=== PATIENT | female | born 1940 | race Caucasian/White ===

== ENCOUNTER → 2016-10-26 | Outpatient (CLI) | payer MEDICARE, BC ==
--- NOTE | 2016-10-28 16:00 | PE ---
Nuclear medicine PET/CT HISTORY: Lung carcinoma Patient received 14.4 mCi F-18 FDG intravenously. Scanning performed from the skull base to the mid t highs. Localization and attenuation correction CT scan was performed. Correlation to prior nuclear medicine PET/CT 24 February 2016 FINDINGS: Neck and chest: No suspicious hypermetabolic uptake. No mediastinal, axillary, or hilar adenopathy. H eart is enlarged. Coronary artery calcifications are present. Pulmonary artery is prominent, correlat e for possible pulmonary artery hypertension. No pleural or pericardial effusion. Extensive emphysema tous changes are present within the lungs. There is been some interval increase in pleural thickening in the posterior right chest. ABDOMEN: No evident liver mass or adrenal mass. No suspicious hypermetabolic uptake. There is marked left-sided hydronephrosis. Colonic uptake in the descending colon is felt likely to be physiologic. I ncreased attenuation in the lower abdomen subcutaneous fat anteriorly likely due to injections, corre late with appropriate history. Colonic uptake in the ascending colon is felt likely to be physiologi c. Osseous structures: Within normal limits, no suspicious hypermetabolic uptake. Degenerative disc pardo ges, facet arthropathy noted at the lower lumbar spine. IMPRESSION: The hydronephrosis on the left has worsened in the interval. Colonic uptake is felt likel y to be physiologic. There is resolution in the previously identified hypermetabolic uptake in the ch est.
== END | disposition home or self-care (01) ==
LOC: RADPETMAIN 12:03
PROVIDERS: ATTEND Radiology Radiation Oncology
DX: C34.90 Malignant neoplasm of unspecified part of unspecified bronchus or lung (principal); N13.30 Unspecified hydronephrosis
CPT/HCPCS: 78815; A9552

== ENCOUNTER → 2017-01-09 | Outpatient (CLI) | payer MEDICARE, BC ==
[2017-01-09 10:36] LABS: Blood Urea Nitrogen 20 mg/dL (7-17); Non-African American GFR(MDRD) >60 (>60 ml/min/1.73 sqM)
--- NOTE | 2017-01-09 14:04 | CT ---
EXAMINATION TYPE: CT urogram wo/w con DATE OF EXAM: 01/09/2017 COMPARISON: Correlation PET/CT 10/26/2016 HISTORY: 76 year-old female left sided abnormality on PET scan per patient. History of Lung cancer TECHNIQUE: Contiguous axial scanning of the abdomen and pelvis performed without and with IV Contrast , patient injected with 100 mL of Omnipaque 300. Delayed images through the kidneys and bladder were obtained. Imaging was performed up to 20 minutes. Coronal/sagittal reconstructions performed. 3-D rec onstructions generated on a dedicated workstation. CT DLP: 1141.5 mGycm Automated exposure control for dose reduction was used. FINDINGS: The heart is normal size without pericardial effusion. Coronary vessel calcifications are present and are a marker for coronary artery disease. Some emphysematous change noted in the visualized lower fabiano ngs. No pleural effusion. Some focal fat along the anterior falciform ligament. Portal venous system appears patent. No biliary ductal dilatation. Gallbladder, adrenal glands, right kidney, spleen, and pancreas show no gross abnormality. There is a small 7 mm hypodense lesion upper pole left kidney too small fractured CT characterization , likely cyst. Severe left-sided hydronephrosis show a slight interval increase as compared to 10/26/2016. Again, the re is abrupt caliber change at the level of the UPJ. The ureter itself is not dilated. Delayed images were performed up to 20 minutes and contrast remains only excreted to the level of the calyceal syst em. The opacified right renal collecting system and ureter appear normal. No dilated small bowel, free fluid, or free air. No pericolonic inflammatory change. On the delayed images, the bladder is contrast opacifying. No suspicious intraluminal filling defect is identified. Uterus surgically absent. There is a 1.5 cm cystic lesion within the right ovary. Left ovary is visua lized. Platelets in the pelvis. No abnormal fluid collection the pelvis or pelvic lymphadenopathy see n. Bones: There is a left L5 hemisacralization and degenerative changes throughout the lumbar spine with grade 1 anterolisthesis at L4-L5 and Baastrup's disease. IMPRESSION: 1. APPARENT UPJ OBSTRUCTION WITH CONTINUED SEVERE LEFT-SIDED HYDRONEPHROSIS, SLIGHTLY INCREASED FROM 10/26/2016. EXCRETED CONTRAST FROM THE LEFT KIDNEY ONLY PROGRESSES TO THE LEVEL OF THE CALYCEAL SYS NO OBVIOUS OBSTRUCTING LESION BY CT. 2. A 1.5 CM CYSTIC RIGHT OVARIAN LESION. PELVIC ULTRASOUND CAN FURTHER EVALUATE INDETERMINATE SUBSEQU ENT FOLLOW-UP RECOMMENDATIONS.
== END | disposition home or self-care (01) ==
LOC: RADCTMAIN 09:58
PROVIDERS: ATTEND Urology
DX: N83.201 Unspecified ovarian cyst, right side (principal); N13.1 Hydronephrosis with ureteral stricture, not elsewhere classified
CPT/HCPCS: 82565; 84520; 74178; 36415; 74400; Q9967

== ENCOUNTER → 2017-04-19 | Outpatient (CLI) | payer MEDICARE, BC ==
--- NOTE | 2017-04-21 07:22 | PE ---
EXAMINATION TYPE: PET CT fusion skull to thigh DATE OF EXAM: 04/19/2017 COMPARISON: PET/CT dated 10/26/2016, CT urogram dated 01/09/2017 and PET/CT dated 02/24/2016. HISTORY: Lung carcinoma. Follow-up examination. TECHNIQUE: Following the intravenous administration of 14.5 mCi of F-18 FDG, whole body images are p erformed from the skull base to the midthigh. Images are reviewed on the computer in the coronal, ax ial, and sagittal planes. Reconstructed rotating images are created on independent workstation and r eviewed on the computer. A localization and attenuation correction CT is performed in conjunction w ith the PET scan. FINDINGS: SKULL BASE AND NECK: No suspicious hypermetabolic uptake. CHEST, MEDIASTINUM, AND HILAR REGION: Background mediastinal uptake has a maximum SUV of 1.77. No suspicious hypermetabolic uptake. 3-4 mm pulmonary nodule is below the threshold of PET CT and is seen on series 3 image 82. This is unchanged from the PET/CT of 02/24/2016 and favored to be benign al though continued follow-up is recommended to determine stability. There is chronic appearing right mi ddle lobe subsegmental atelectasis abutting the mediastinal surface. Right hilar vasculature intimate ly associated with this area of consolidation that demonstrates a maximal SUV of 2.17. This does not appear to have progressed from the prior examination of 10/26/2016. ABDOMEN AND PELVIS: No suspicious hypermetabolic uptake. OSSEOUS STRUCTURES: No suspicious hypermetabolic uptake. OTHER CT: Extensive centrilobular and paraseptal emphysematous changes are seen throughout the lungs. There is redemonstration of extensive left-sided proximal hydronephrosis and pelvic dilation compati ble with the known UPJ obstruction with slight left cortical renal atrophy. Moderate atheromatous sanchez nges are seen of the abdominal aorta and its branches. Mild degenerative changes of the thoracolumbar and lumbosacral spine. Soft tissues stranding is seen in the anterior lower abdominal malik and may relate to injection sites. The heart is mildly enlarged with three-vessel coronary artery calcifications. No ascending thoracic aortic aneurysm. Uterus is surgically absent. No adenopathy within the abdomen or pelvis. Degenerativ e changes of the femoral acetabular joints are seen. IMPRESSION: 1. Pulmonary nodule within the anterior right middle lobe measuring 3 to 4 mm in unchanged from the p rior PET/CT of 02/24/2016. This is below the threshold for evaluation on PET CT but is favored to be b enign. Surveillance is recommended. 2. Right hilar vascular structures are intimately associated with a focal area of consolidation favor ed to represent chronic atelectasis. No discrete adenopathy is appreciated.
== END | disposition home or self-care (01) ==
LOC: RADPETMAIN 11:30
PROVIDERS: ATTEND Radiology Radiation Oncology
DX: C34.80 Malignant neoplasm of overlapping sites of unspecified bronchus and lung (principal)
CPT/HCPCS: 78815; A9552

== ENCOUNTER → 2017-11-01 | Outpatient (CLI) | payer MEDICARE, BC ==
--- NOTE | 2017-11-02 12:57 | PE ---
EXAMINATION TYPE: PET CT fusion skull to thigh DATE OF EXAM: 11/01/2017 CLINICAL HISTORY: 77 year-old female lung cancer restaging. Patient with initial left lung cancer zhou gnosed in 2016. Subsequent left lung biopsy on February 2017 with last chemotherapy therapy September 2016 and last radiation therapy March 2017. TECHNIQUE: Following the intravenous administration of 10.7 mCi of F-18 FDG, whole body images are performed from the skull base to the midthigh. Images are reviewed on the computer in the coronal, a xial, and sagittal planes. Reconstructed rotating images are created on independent workstation and reviewed on the computer. A localization and attenuation correction CT is performed in conjunction with the PET scan. Glucose level: 97 mg/dL CTDI: 3.83 mGy DLP: 341.14 mGy-cm COMPARISON: 04/19/2017 and 10/26/2016. FINDINGS: PET: Chronic right hilar density difficult to clearly delineate from adjacent vascular or other mediastina l structures on this noncontrast CT. The overall bulk of density is unchanged, max SUV 2.5 versus 2.3 on 10/26/2016. Possible 1 cm left adrenal nodule is indeterminate and seems to be stable in retrospect showing minim al FDG uptake, max SUV 1.9 versus 1.7 on 10/26/2016. Variable FDG uptake associated with subcutaneous nodules along the mid to lower abdomen compatible wi th subcutaneous injections and should be correlated clinically. Viable segmental hypermetabolism throughout the colon suggests physiologic muscular uptake. Stable 1.5 cm cystic lesion right ovary shows no FDG uptake. Mild superior endplate compression deformity of T4 seems to have shown some associated metabolic acti vity on the 04/19/2017 exam which has cleared in the interval suggesting traumatic uptake. ATTENUATION CORRECTION CT: Visualized paranasal sinuses and mastoid air cells are clear. No cervical lymphadenopathy. Heart is upper limits of normal in size without pericardial effusion. Coronary vessel calcifications are present and are a marker for coronary artery disease. Aorta normal caliber with conventional arch vessel branching anatomy [id number] atherosclerotic calcifications. Moderate to advanced emphysema with new trace right pleural effusion. No dilated small bowel, free fluid, or free air. Moderate atherosclerotic calcifications within the a bdominal aorta and iliac arteries. Persistent moderate to severe left-sided hydronephrosis without a ppreciable ureteric dilatation suggesting chronic UPJ stenosis. No mesenteric or retroperitoneal lym phadenopathy. Mild circumferential bladder wall thickening. Correlate to exclude cystitis. Uterus surgically absent . Pelvic phleboliths. Ovaries appear to be present. Stable 1.5 cm cyst right ovary. No abnormal fluid collection in the pelvis or pelvic lymphadenopathy. Bones: Mild degenerative changes of the hips. Degenerative changes mid to lower lumbar spine. No osse ous destructive process. Grade 1 anterolisthesis L4-L5. Mild T4 superior endplate compression deformi ty as mentioned above. IMPRESSION: 1. Stable volume loss and consolidation in the right hilar/perihilar region suggestive of site of maria m ated disease. The degree of mild uptake here (max SUV 2.5 versus 2.3 on 10/26/2016) is also essentiall y stable. 2. A trace right pleural effusion is new but nonspecific. Otherwise, no CT or metabolic evidence for neoplastic recurrence or metastatic disease. 3. Stable 1.5 cm cystic lesion right ovary. Annual ultrasound surveillance can be performed. 4. Moderate to advanced COPD, CAD. 5. Continued moderate to severe left-sided hydronephrosis, presumed chronic UPJ obstruction.
== END | disposition home or self-care (01) ==
LOC: RADPETMAIN 09:48
PROVIDERS: ATTEND Internal Medicine Hematology & Oncology
DX: C34.81 Malignant neoplasm of overlapping sites of right bronchus and lung (principal); J44.9 Chronic obstructive pulmonary disease, unspecified; I25.10 Atherosclerotic heart disease of native coronary artery without angina pectoris; N13.30 Unspecified hydronephrosis; N83.201 Unspecified ovarian cyst, right side
CPT/HCPCS: 78815; A9552

== ENCOUNTER → 2018-02-03 | Outpatient (CLI) | payer MEDICARE, BC ==
[~2018-02-03] MED LIST: FUROSEMIDE 10 MG/ML 2 ML VIAL IV ONE
--- NOTE | 2018-02-03 10:20 | NM ---
EXAMINATION TYPE: NM renal flow and function DATE OF EXAM: 02/03/2018 COMPARISON: Nuclear medicine PET/CT 11/01/2017, CT urogram 01/09/2017 HISTORY: Hydronephrosis with ureteropelvic junction obstruction, left flank pain Following administration of 10.31 mCi Tc99m MAG3. Immediate images post injection. FINDINGS: Posterior imaging performed following injection of the radiopharmaceutical the level of the kidneys ureters and bladder. Time activity curves were generated. Lasix administered intravenously o n protocol. Left: 30.1 %. Right: 69.9 %. Max renal flow left: 13 minutes. Max renal flow right: 69.9 minutes. Diminished activity noted within the left kidney as compared to right as above. Delayed peak activity is noted within the left kidney as compared to the right. Time activity curve analysis shows relativ zion flat appearance throughout the exam following peak activity. There is accumulation of radiopharma ceutical within the renal collecting system on the left which is delayed, significant ureteral activi ty is not identified however. Persistent renal activity on the left is increased as compared to decre asing right renal activity over time. T 1/2 left: N/A minutes. T 1/2 right: 21.5 minutes. IMPRESSION: Findings compatible with patient's history of ureteropelvic junction obstruction on the left with dim inished function of the left kidney as compared to the right.
== END | disposition home or self-care (01) ==
LOC: RADNMMAIN 06:46
PROVIDERS: ATTEND Urology
DX: N13.0 Hydronephrosis with ureteropelvic junction obstruction (principal)
CPT/HCPCS: 78707; A9562

== ENCOUNTER → 2018-03-04 | Outpatient (CLI) | payer MEDICARE, BC ==
[2018-03-04 10:16] LABS: Basophils % (A) 0 %; Eosinophils # (A) 0.1 k/uL (0-0.7); Eosinophils % (A) 2 %; HCT 45.6 % (34.0-46.0); HGB 14.7 gm/dL (11.4-16.0); Lymphocytes # (A) 0.6 k/uL (1.0-4.8); Lymphocytes % (A) 12 %; MCH 31.2 pg (25.0-35.0); MCHC 32.3 g/dL (31.0-37.0); MCV 96.4 fL (80.0-100.0); Mean Platelet Volume 6.6; Monocytes # (A) 0.3 k/uL (0-1.0); Monocytes % (A) 7 %; Neutrophils # (A) 3.7 k/uL (1.3-7.7); Neutrophils % (A) 77 %; Platelet Count 140 k/uL (150-450); RBC 4.73 m/uL (3.80-5.40); WBC 4.8 k/uL (3.8-10.6)
[2018-03-04 10:27] LABS: Appearance,Urine Clear (Clear); Bacteria,Urine Rare /hpf; Bilirubin,Urine Negative (Negative); Blood,Urine Negative (Negative); Color,Urine Yellow; Glucose,Urine (UA) Negative (Negative); Ketones,Urine Negative (Negative); Leukocyte Esterase,Urine Small (Negative); Mucus,Urine Rare /hpf; Nitrite,Urine Negative (Negative); Protein,Urine Negative (Negative); RBC,Urine 1 /hpf (0-5); Specific Gravity,Urine 1.014 (1.001-1.035); Squamous Epithelial Cell,Urine 2 /hpf (0-4); Urobilinogen,Urine <2.0 mg/dL (<2.0); WBC,Urine 2 /hpf (0-5)
[2018-03-04 10:52] LABS: Calcium 9.9 mg/dL (8.4-10.2); Potassium 5.2 mmol/L (3.5-5.1)
== END | disposition home or self-care (01) ==
LOC: LABPAT 09:08
PROVIDERS: ATTEND Urology
DX: Z01.818 Encounter for other preprocedural examination (principal); Z01.812 Encounter for preprocedural laboratory examination; E78.5 Hyperlipidemia, unspecified; R31.29 Other microscopic hematuria; I10 Essential (primary) hypertension; Q62.11 Congenital occlusion of ureteropelvic junction
CPT/HCPCS: 80048; 81001; 85025; 87086; 93005

== ENCOUNTER 2018-03-11 05:34 | Inpatient (IN) | payer MEDICARE, BC ==
[2018-03-02 16:29] VITALS: BMI 23.9
--- NOTE | 2018-03-10 11:46 | P.GSHP ---
History of Present Illness H&P Date: 03/10/18 This pleasant 77 yo female has left hydronephrosis due to a UPJ obstruction It has become symptomatic SHe comes for a left dismembered pyeloplasty ALternatives have been discussed She will be set up. - Constitutional Constitutional: Reports chronic headaches - EENT Comment: cataracts - Genitourinary (Female) Genitourinary: Reports as per HPI Past Medical History Past Medical History: Atrial Flutter, Asthma, Cancer, COPD, Deep Vein Thrombosis (DVT), Hyperlipidemia, Osteoarthritis (OA), Pneumonia, Thyroid Disorder Additional Past Medical History / Comment(s): "blockage left ureter" hx migraines, chokes easily, diff swallowing after aspiriation 03/2017, hx cancerous tumor in left lung-tx with radiation 02/2016-09/2016, hx blood clots near heart, in rt arm and rt carotid artery. hx ulcers, History of Any Multi-Drug Resistant Organisms: None Reported Past Surgical History: Adenoidectomy, Appendectomy, Hysterectomy, Tonsillectomy Additional Past Surgical History / Comment(s): colonoscopy, lt breast bx x3 has markers in place. rt hand sx to repair after injury-has limited strength in rt hand. Past Anesthesia/Blood Transfusion Reactions: No Reported Reaction Smoking Status: Former smoker - Past Family History Father Additional Family Medical History / Comment(s): at age 48 from cerebral hemorrage Mother Family Medical History: Cancer Additional Family Medical History / Comment(s): breast cancer Sister(s) Family Medical History: Cancer Additional Family Medical History / Comment(s): breast cancer Medications and Allergies Home Medications Medication Instructions Recorded Confirmed Type Atenolol [Tenormin] 50 mg PO DAILY 02/07/16 03/02/18 History Atorvastatin [Lipitor] 20 mg PO DAILY 02/07/16 03/02/18 History Levothyroxine Sodium [Synthroid] 100 mcg PO DAILY 02/07/16 03/02/18 History [place] Carbonate 300 mg PO DAILY 02/07/16 03/02/18 History Sertraline [Zoloft] 100 mg PO DAILY 02/07/16 03/02/18 History Albuterol Nebulized [Ventolin 2.5 mg INHALATION BID PRN 06/03/17 03/02/18 History Nebulized] Budesonide-Formot 160-4.5 Mcg 2 puff INHALATION BID PRN 06/03/17 03/02/18 History [Symbicort 160-4.5 Mcg Inhaler] Aspirin [Adult Low Dose Aspirin EC] 81 mg PO DAILY 03/02/18 03/02/18 History Allergies Allergy/AdvReac Type Severity Reaction Status Date / Time latex Allergy Unknown Verified 03/02/18 16:24 Surgical - Exam - General well developed, well nourished, no distress - Eyes PERRL - ENT no hearing loss - Neck trachea midline - Respiratory normal expansion, normal respiratory effort - Cardiovascular Rhythm: regular - Abdomen Abdomen: soft, non tender - Neurologic normal coordination, normal sensation - Musculoskeletal normal gait, normal posture - Psychiatric oriented to time, oriented to person, oriented to place, speech is normal, memory intact Results - Imaging CT scan - abdomen: report reviewed, image reviewed CT scan - pelvis: report reviewed, image reviewed Assessment and Plan Assessment: Imp: Left UPJ obstruction, multiple medical illness Plan: Dismemberd pyeolplasty
[~2018-03-11 05:34] MED LIST changes: -FUROSEMIDE 10 MG/ML 2 ML VIAL IV ONE; +LIDOCAINE 1% 20 ML VIAL (10MG/ML) FOR IV START INTRADERMA PRN; +MIDAZOLAM 2 MG/2 ML VIAL IV PRN; +fentaNYL (PF) 50 MCG/ML 2 ML AMP IV PRN
[2018-03-11] MEDS ORDERED: ceFAZolin 1,000 MG in DEXTROSE/WATER 1 50ML.BAG IVPB ONE (06:15)
[2018-03-11] MEDS: LACTATED RINGERS 1,000 ML IV SCH ×2 (06:24→07:31)
[2018-03-11] MEDS: DEXAMETHASONE SOD PHOSPHATE 10 MG/ML 1 ML VIAL IV ONE ×2 (06:31→13:14)
[2018-03-11] MEDS: ONDANSETRON 4 MG/2 ML VIAL IVP ONE ×2 (06:32→13:14)
[2018-03-11] MEDS ORDERED: NALOXONE 0.4 MG/ML 1 ML VIAL IV PRN (07:27)
[2018-03-11] MEDS ORDERED: NEOSTIGMINE 1 MG/ML 10 ML VIAL ONE (07:33)
[2018-03-11] MEDS ORDERED: GLYCOPYRROLATE 0.2 MG/ML 2 ML VIAL ONE (07:33)
[2018-03-11] MEDS ORDERED: PROPOFOL 10 MG/ML 20 ML VIAL IV ONE ×2 (07:33)
[2018-03-11] MEDS ORDERED: LIDOCAINE 1% INJ 10MG/ML (20 ML MDV) ONE (07:33)
[2018-03-11] MEDS ORDERED: MIDAZOLAM 2 MG/2 ML VIAL ONE (07:33)
[2018-03-11] MEDS ORDERED: ROCURONIUM BROMIDE 10 MG/ML 10 ML VIAL IV ONE (07:33)
[2018-03-11] MEDS ORDERED: LACTATED RINGERS 1,000 ML IV ONE (08:55)
[2018-03-11] MEDS ORDERED: ACETAMINOPHEN TAB 325 MG TAB PO PRN (09:04)
[2018-03-11] MEDS ORDERED: ALBUTEROL NEBULIZED 2.5 MG/3 ML INHALATION PRN (09:04)
--- NOTE | 2018-03-11 09:12 | P.OP ---
Date of Procedure: 03/11/18 Preoperative Diagnosis: Left UPJ obstruction Postoperative Diagnosis: Same secondary crossing vessel Procedure(s) Performed: Dismembered pyeloplasty left with antegrade 6 x 24 double-J catheter Anesthesia: ROSIE, shruthi Surgeon: Manuelito De León Picker Tender Helper #1: Eris Adams Estimated Blood Loss (ml): 50 Pathology: none sent Condition: stable Disposition: PACU Indications for Procedure: The patient is a 77-year-old female with a symptomatic left UPJ obstruction who comes for a dismembered pyeloplasty alternatives have been discussed. And complications have been discussed Description of Procedure: The patient is brought to the operating suite. She is given a successful general endotracheal anesthesia. A Stinson catheters placed sterilely. She's placed in a left flank position with care to her axilla airways and extremities. A left flank incision off the tip of the 12th rib was made. The latissimus and oblique muscles are opened. The retroperitoneum's identified. Drill was fascias identified. We marched down to the lower pole of the left kidney which is easily seen. We move medially and identify the left UPJ. It becomes apparent as we identify the ureter and the UPJ that there is a notable crossing vessel causing the UPJ obstruction. The actual ureteropelvic junction appears wide open. Stay stitches are placed in the ureter and the UPJ. We transect the ureter and bring it around on the front side of the lower pole renal vessels. This releases the obstruction. We reanastomosed the ureter to the renal pelvis with 2 running 5-0 Vicryls. This is done over a new 6 x 24 double-J catheter that is passed antegrade into the bladder and coils in the renal pelvis. A Heladio-Crum drain is brought through separate stab incision. The wound was closed with 3 layers and #1 Vicryl. The skin is stapled the patient's awake and returned recovery room good condition. She tolerated the procedure well. Blood loss is less than 50 mL. She'll be placed in the hospital postoperatively.
[2018-03-11] MEDS: HYDROMORPHONE EPIDURAL PRN ×2 (09:25→11:36)
[2018-03-11] MEDS: ROPIVACAINE EPIDURAL PRN ×2 (09:25→11:36)
[2018-03-11] MEDS: SODIUM CHLORIDE 0.9% EPIDURAL PRN ×2 (09:25→11:36)
[2018-03-11] MEDS: DEXTROSE 5%-0.45% NACL 1,000 ML IV SCH ×2 (12:47→23:25)
[2018-03-11] MEDS: SYMBICORT 160-4.5 MCG INHALER INHALATION PRN (19:43)
[2018-03-12] MEDS: LEVOTHYROXINE 100 MCG TAB PO SCH (05:37)
[2018-03-12] MEDS: SYMBICORT 160-4.5 MCG INHALER INHALATION PRN ×2 (07:26→19:27)
[2018-03-12] MEDS ORDERED: diphenhydrAMINE 50 MG/ML 1 ML VIAL IVP PRN (07:50)
--- NOTE | 2018-03-12 07:55 | P.PN ---
Progress Note - Text Progress Note Date: 03/12/18 Postoperative day # 1 status post , left pyeloplasty ,epidural catheter placed for postoperative analgesia, patient doing well epidural site okay, patient currently on combination of epidural infusion solution of Ropivacaine 0.0625% and Dilaudid 20 g per mL the infusion rate at 4 ml per hour , patient had no motor deficit epidural site okay , vital signs stable ,VAS 1 /10 , She is complaining of some itching. Assessment and plan= post operative day #1 patient doing well ,pain well controlled , and cleaning of some itching and I will start patient on Benadryl 12.5 mg IV every 6 hours when necessary .( Patient was seen at 0655 a.m. )
[2018-03-12] MEDS: LITHIUM CARBONATE 300 MG CAP PO SCH (08:56)
[2018-03-12] MEDS: ATENOLOL 50 MG TAB PO SCH (08:56)
[2018-03-12] MEDS: ATORVASTATIN 20 MG TAB PO SCH (08:56)
[2018-03-12] MEDS: SERTRALINE 100 MG TAB PO SCH (08:56)
--- NOTE | 2018-03-12 13:17 | P.PN ---
Subjective Progress Note Date: 03/12/18 The patient is in her first postoperative day from a left dismembered pyeloplasty. Her pain is controlled with epidural. She does have some itching from the epidural which has been controlled with Benadryl. Her urine output is good. Her wound looks fine. She will ambulate. We'll continue with epidural until tomorrow. Mild epidural catheter will be removed. I am anticipating discharge later tomorrow or Friday Objective - Vital Signs Vital signs: Vital Signs Temp 98.0 F 03/12/18 07:30 Pulse 87 03/12/18 07:30 Resp 16 03/12/18 07:30 BP 122/68 03/12/18 07:30 Pulse Ox 98 03/12/18 07:30 Intake & Output 03/11/18 03/12/18 03/12/18 18:59 06:59 18:59 Intake Total 1387.1 800 450 Output Total 840 1325 Balance 547.1 -525 450 Weight 65.317 kg Intake: IV 1312.1 Intake, IV Titration 75 600 Amount Dextrose 5%-0.45% NaCl 1, 75 600 000 ml @ 75 mls/hr IV . [id number] [facility] Rx#:[id number] Oral 200 450 Output: Drainage 0 Left Abdomen 0 Urine 800 1325 Estimated Blood Loss 40 Other: Voiding Method Indwelling Catheter Indwelling Catheter Indwelling Catheter - Labs CBC & Chem 7: 03/11/18 06:20
[2018-03-12] MEDS: DEXTROSE 5%-0.45% NACL 1,000 ML IV SCH (13:35)
[2018-03-13] MEDS: ROPIVACAINE EPIDURAL PRN (02:51)
[2018-03-13] MEDS: HYDROMORPHONE EPIDURAL PRN (02:51)
[2018-03-13] MEDS: SODIUM CHLORIDE 0.9% EPIDURAL PRN (02:51)
[2018-03-13] MEDS: DEXTROSE 5%-0.45% NACL 1,000 ML IV SCH ×2 (02:51→17:05)
[2018-03-13] MEDS: LEVOTHYROXINE 100 MCG TAB PO SCH (05:42)
--- NOTE | 2018-03-13 07:08 | P.PN ---
Progress Note - Text 03/13 610am 77-year-old female status post pyeloplasty by Dr. De León. Patient has an epidural catheter for postop pain control with the solution running at 4 mL an hour. She has a VAS of 2 no motor or sensory deficits plan to continue epidural infusion
[2018-03-13] MEDS: SYMBICORT 160-4.5 MCG INHALER INHALATION PRN (07:26)
[2018-03-13] MEDS ORDERED: HYDROcodone/APAP 5-325MG 1 EACH TAB PO PRN (07:44)
[2018-03-13] MEDS: SERTRALINE 100 MG TAB PO SCH (08:26)
[2018-03-13] MEDS: ATENOLOL 50 MG TAB PO SCH (08:27)
[2018-03-13] MEDS: LITHIUM CARBONATE 300 MG CAP PO SCH (08:27)
[2018-03-13] MEDS: ATORVASTATIN 20 MG TAB PO SCH (08:27)
--- NOTE | 2018-03-13 10:27 | P.DS ---
Providers Date of admission: 03/11/18 05:34 Attending physician: Manuelito De León Primary care physician: Vinicio [facility] Course: Patient is 77. She has a left UPJ obstruction. She underwent repair 48 hours ago. She is feeling well. The epidurals been removed. Her pain is moderate. The catheter is not been removed. If she voids okay and her pain is under control she may be discharged home later today. She'll follow-up in the office in one week. She's not comfortable with these she'll stay until tomorrow. Postoperative instructions been given. She is given a prescription of [place]. She'll follow-up in the office in one week. Condition is good. Patient Condition at Discharge: Good Plan - Discharge Summary Discharge Rx Participant: Yes New Discharge Prescriptions: New HYDROcodone/APAP 5-325MG [Blair 5-325] 1 tab PO Q4HR PRN #14 tab PRN Reason: Pain No Action Atorvastatin [Lipitor] 20 mg PO DAILY Levothyroxine Sodium [Synthroid] 100 mcg PO DAILY Atenolol [Tenormin] 50 mg PO DAILY Sertraline [Zoloft] 100 mg PO DAILY [place] Carbonate 300 mg PO DAILY Budesonide-Formot 160-4.5 Mcg [Symbicort 160-4.5 Mcg Inhaler] 2 puff INHALATION RT-BID PRN PRN Reason: sob Albuterol Nebulized [Ventolin Nebulized] 2.5 mg INHALATION RT-BID PRN PRN Reason: sob Aspirin [Adult Low Dose Aspirin EC] 81 mg PO DAILY Discharge Medication List Atenolol [Tenormin] 50 mg PO DAILY 02/07/16 [History] Atorvastatin [Lipitor] 20 mg PO DAILY 02/07/16 [History] Levothyroxine Sodium [Synthroid] 100 mcg PO DAILY 02/07/16 [History] [place] Carbonate 300 mg PO DAILY 02/07/16 [History] Sertraline [Zoloft] 100 mg PO DAILY 02/07/16 [History] Albuterol Nebulized [Ventolin Nebulized] 2.5 mg INHALATION RT-BID PRN 06/03/17 [ History] Budesonide-Formot 160-4.5 Mcg [Symbicort 160-4.5 Mcg Inhaler] 2 puff INHALATION RT-BID PRN 06/03/17 [History] Aspirin [Adult Low Dose Aspirin EC] 81 mg PO DAILY 03/02/18 [History] HYDROcodone/APAP 5-325MG [Blair 5-325] 1 tab PO Q4HR PRN #14 tab 03/13/18 [Rx] Follow up Appointment(s)/Referral(s): Manuelito De León MD [STAFF PHYSICIAN] - 1 Week Discharge Disposition: HOME SELF-CARE
[2018-03-13 19:47] VITALS: RESP 16
[2018-03-14 02:27] VITALS: TEMP 98.4
[2018-03-14] MEDS: LEVOTHYROXINE 100 MCG TAB PO SCH (06:11)
[2018-03-14] MEDS: DEXTROSE 5%-0.45% NACL 1,000 ML IV SCH (06:12)
[2018-03-14] MEDS: LITHIUM CARBONATE 300 MG CAP PO SCH (08:26)
[2018-03-14] MEDS: ATORVASTATIN 20 MG TAB PO SCH (08:26)
[2018-03-14] MEDS: ATENOLOL 50 MG TAB PO SCH (08:26)
[2018-03-14] MEDS: SERTRALINE 100 MG TAB PO SCH (08:26)
--- NOTE | 2018-03-14 09:05 | P.PN ---
Progress Note - Text Progress Note Date: 03/14/18 The patient is afebrile. She says she has minimal pain in her left flank in the region of her incision. Yesterday afternoon she experienced some nausea and vomiting and this has continued through this morning. The patient said that she last had a bowel movement on the day of admission. She had been taking narcotics for pain control immediately postop but her pain has been controllable with Tylenol for the last 24 hours. On examination the patient's abdomen is somewhat distended with gas but there is no focal tenderness. Her flank incision is healing well and there is no drainage at the region where the Heladio-Crum drain was removed. Impression: Probable postop ileus related to use of narcotics in the immediate postop period. Plan: The patient will be treated with a Dulcolax suppository in hopes of stimulating her bowel function. She feels better later in the day she may be able to be discharged at that time.
[2018-03-14 10:01] VITALS: BP 150/77; PULSE 66
[2018-03-14] MEDS ORDERED: BISACODYL 10 MG SUPP RECTAL SCH (10:02)
[2018-03-15] MEDS ORDERED: BISACODYL 10 MG SUPP RECTAL SCH (09:00)
== END 2018-03-14 16:30 | disposition home or self-care (01) | DRG 660 ==
LOC: 2ORMAIN 05:34 → 3SUR 11:41
PROVIDERS: ADMIT Urology; ATTEND Urology
PROC: 0T9 Urinary System, Drainage (ICD-10-PCS; 2018-03-11)
PROC: 0TQ Urinary System, Repair (ICD-10-PCS; principal; 2018-03-11 07:30)
DX: N13.1 Hydronephrosis with ureteral stricture, not elsewhere classified (principal); K56.7 Ileus, unspecified; I48.92 Unspecified atrial flutter; E78.5 Hyperlipidemia, unspecified; J44.9 Chronic obstructive pulmonary disease, unspecified; T40.605A Adverse effect of unspecified narcotics, initial encounter; Z79.51 Long term (current) use of inhaled steroids; Z79.82 Long term (current) use of aspirin; Z79.899 Other long term (current) drug therapy; Z80.3 Family history of malignant neoplasm of breast; Z87.891 Personal history of nicotine dependence; Z90.710 Acquired absence of both cervix and uterus; Z91.040 Latex allergy status; Z79.890 Hormone replacement therapy; E07.9 Disorder of thyroid, unspecified; G43.909 Migraine, unspecified, not intractable, without status migrainosus; G89.29 Other chronic pain; Z85.118 Personal history of other malignant neoplasm of bronchus and lung; Z92.3 Personal history of irradiation; Z86.718 Personal history of other venous thrombosis and embolism; R13.10 Dysphagia, unspecified; M19.90 Unspecified osteoarthritis, unspecified site
CPT/HCPCS: 84132; 94640; 94760

== ENCOUNTER → 2018-06-13 | Outpatient (CLI) | payer MEDICARE, BC ==
--- NOTE | 2018-06-15 11:09 | PE ---
EXAMINATION TYPE: PET CT fusion skull to thigh DATE OF EXAM: 06/13/2018 COMPARISON: No recent CT chest films available. There is a chest x-ray dated 12/26/2017. Prior PET/CT: 11/01/2017 HISTORY: Lung cancer TECHNIQUE: Following the intravenous administration of 10.725 mCi of F-18 FDG, whole body images are performed from the skull base to the midthigh. Images are reviewed on the computer in the coronal, axial, and sagittal planes. Reconstructed rotating images are created on independent workstation and reviewed on the computer. A localization and attenuation correction CT is performed in conjunction with the PET scan. DLP: 341.14 mGycm SCAN: Subsequent Blood glucose: 97 mg/dL Average Mediastinum SUV: 1.53 Average Liver SUV: 1.78 FINDINGS: NECK: No abnormal uptake THORAX: No abnormal uptake The ill-defined area of right suprahilar density previously had a maximum SUV of 2.5, this is diminis hed 2.1 on the current examination. Suspicious nodules not identified. ABDOMEN: No abnormal uptake. The possible left adrenal nodule is stable in appearance without abnormal uptake. Maximum SUV current ly is 1.8 which is diminished from 1.9. PELVIS: No abnormal uptake OSSEOUS STRUCTURES: No abnormal uptake LOCALIZATION CT: Fullness through the right suprahilar region is stable. Small right pleural effusion has developed. Emphysematous changes remain within the lung hu. The 1 cm possible left adrenal n odule appears stable currently measuring 0.9 cm. There is a nonobstructing renal stone in the inferio r pole left kidney. Vascular calcifications within the aorta. The ascending thoracic aorta at the lev el of main pulmonary artery is 3.5 cm. The main pulmonary artery the bifurcation is 3.2 cm. COMPARISON: Findings appear stable from the comparison. SUV values measured at diminished from the mo st recent PET/CT comparison 11/01/2017. No new suspicious areas of radiotracer accumulation are eviden t. IMPRESSION: 1. Stable PET/CT. 2. No suspicious changes for new or recurrent neoplasm. 3. Nonobstructing left renal stone. Previous left hydronephrosis has resolved.
== END | disposition home or self-care (01) ==
LOC: RADPETMAIN 08:01
PROVIDERS: ATTEND Internal Medicine Hematology & Oncology
DX: C34.81 Malignant neoplasm of overlapping sites of right bronchus and lung (principal); N20.0 Calculus of kidney
CPT/HCPCS: 78815; A9552

== ENCOUNTER → 2018-08-17 | Outpatient (CLI) | payer MEDICARE, BC ==
--- NOTE | 2018-08-29 10:50 | MM ---
Reason for exam: screening (asymptomatic). Last mammogram was performed 8 years ago. History: Patient is postmenopausal, previous chest radiation therapy, and history of other cancer. Family history of breast cancer in sister at age 60 and breast cancer in mother at age 64. Cancelled Left US Needle Biopsy of the left breast, August 22, 2010. Benign stereotactic core biopsy of the left breast, May 01, 2001. Benign stereotactic core biopsy of the left breast, April 11, 2000. MG 3D Screening Mammo W/Cad Bilateral CC and MLO view(s) were taken. Prior study comparison: August 14, 2010, bilateral diagnostic digital mammog. August 09, 2009, bilateral digital screening mammogram. The breast tissue is heterogeneously dense. This may lower the sensitivity of mammography. There are benign round bilateral breast calcifications. There are previous mammotome biopsies right breast x1 and left breast x2. No discrete abnormality. ASSESSMENT: Benign, BI-RAD 2 RECOMMENDATION: Routine screening mammogram of both breasts in 1 year.
== END | disposition home or self-care (01) ==
LOC: RADMAMWWP 15:08
PROVIDERS: ATTEND Internal Medicine
DX: Z12.31 Encounter for screening mammogram for malignant neoplasm of breast (principal)
CPT/HCPCS: 77063; 77067

== ENCOUNTER → 2019-02-06 | Outpatient (CLI) | payer MEDICARE, BC ==
--- NOTE | 2019-02-08 11:35 | PE ---
EXAMINATION TYPE: PET CT fusion skull to thigh DATE OF EXAM: 02/06/2019 CLINICAL HISTORY: 78-year-old female restaging right lung cancer. TECHNIQUE: Following the intravenous administration of 11.1 mCi of F-18 FDG, whole body images are performed from the skull base to the midthigh. Images are reviewed on the computer in the coronal, a xial, and sagittal planes. Reconstructed rotating images are created on independent workstation and reviewed on the computer. A localization and attenuation correction CT is performed in conjunction with the PET scan. Glucose level: 89 mg/dL CTDI: 3.55mGy DLP: 315.62 mGy-cm COMPARISON: 06/13/2018 and 11/01/2017 FINDINGS: PET: Physiologic FDG uptake within the neck. Stable volume loss and consolidation along the medial aspect of the right upper lobe. Minimal FDG upt mary in this region is unchanged to decreased, max SUV 1.9. A moderate right pleural effusion is new from prior. No discrete FDG uptake associated with this effu kacey. Average liver SUV 2.2. Stable 9 mm nodularity left adrenal gland which shows no discrete FDG uptake. Scattered mild to moderate segmental bowel uptake likely physiologic. Otherwise, physiologic FDG uptake within the abdomen and pelvis. ATTENUATION CORRECTION CT: Stable polyp or mucosal retention cyst anterior wall left maxillary sinus. Mastoid air cells are well pneumatized. No cervical lymphadenopathy. Heart upper limits of normal in size with trace pericardial thickening/fluid. Coronary vessel calcifi cations are present. Ascending aorta borderline ectatic at 3.5 cm. 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 Conventional arch vessel branching anatomy. No thoracic lymphadenopath y identified. Moderate to advanced emphysematous change. Some mild dependent atelectasis is noted. No dilated small bowel, free fluid, or free air. Previously demonstrated 5 mm nonobstructive left xuan al calculus. The previous left-sided hydronephrosis seen on 11/01/2017 has resolved. No mesenteric or retroperitoneal lymphadenopathy. There is mild scattered stool. No pericolonic inflammatory change. The bladder is partially distended. Uterus surgically absent. Both ovaries are visualized. No abnorma l fluid collection in the pelvis or pelvic lymphadenopathy. Bones: Degenerative changes especially in the mid to lower lumbar spine. Cervical spondylosis. IMPRESSION: 1. Stable posttreatment change along the medial right upper lobe. No CT or metabolic evidence for loc al recurrence or metastatic disease. 2. However, a nonspecific, moderate right pleural effusion is new. 3. COPD with advanced emphysema, CAD, stable 9 mm left adrenal nodule probable adrenal adenoma, and a 5 mm nonobstructive left renal calculus.
== END | disposition home or self-care (01) ==
LOC: RADPETMAIN 08:35
PROVIDERS: ATTEND Internal Medicine Hematology & Oncology
DX: J90 Pleural effusion, not elsewhere classified (principal); J43.9 Emphysema, unspecified; I25.10 Atherosclerotic heart disease of native coronary artery without angina pectoris; E27.8 Other specified disorders of adrenal gland; N20.0 Calculus of kidney; C34.81 Malignant neoplasm of overlapping sites of right bronchus and lung
CPT/HCPCS: 78815; A9552

== ENCOUNTER → 2019-08-20 | Outpatient (CLI) | payer MEDICARE, BC ==
--- NOTE | 2019-08-22 14:00 | PE ---
Nuclear medicine PET/CT HISTORY: Lung carcinoma, subsequent Patient received 12.4 mCi F-18 FDG intravenously in delayed scanning was performed from the skull bas e to the mid thighs. Localization and attenuation correction CT scan was performed. Correlation to prior nuclear medicine PET/CT 02/06/2019 Neck and chest: There is no cervical, supraclavicular, mediastinal, axillary, or hilar adenopathy. Co ronary calcifications are dense. There is a small right pleural effusion which is decreased in size. No suspicious hypermetabolic uptake. Emphysematous changes are present within the lungs. Small subple ural nodule at the posterior costophrenic angle on the left is subcentimeter in size and likely stabl e. ABDOMEN: No evident change in the appearance of the adrenal glands. No suspicious hypermetabolic upta ke. No retroperitoneal adenopathy, no evident liver mass. Uptake along the bowel is likely physiologi c. No free fluid. Uterus and adnexal structures are not seen. Calculus is again seen within the left kidney is nonobstructive. Osseous structures show no suspicious hypermetabolic uptake. No other significant interval changes. IMPRESSION: Essentially stable findings. Decreased size of patient's pleural effusion. No evident rec urrence.
== END | disposition home or self-care (01) ==
LOC: RADPETMAIN 16:47
PROVIDERS: ATTEND Internal Medicine Hematology & Oncology
DX: J90 Pleural effusion, not elsewhere classified (principal); C34.81 Malignant neoplasm of overlapping sites of right bronchus and lung
CPT/HCPCS: 78815; A9552

== ENCOUNTER → 2019-09-03 | Outpatient (CLI) | payer MEDICARE, BC ==
--- NOTE | 2019-09-06 14:20 | MM ---
Reason for exam: screening (asymptomatic). Last mammogram was performed 1 year and 1 month ago. History: Patient is postmenopausal, previous chest radiation therapy, and history of other cancer. Family history of breast cancer in sister at age 60 and breast cancer in mother at age 64. Cancelled Left US Needle Biopsy of the left breast, August 22, 2010. Benign stereotactic core biopsy of the left breast, May 01, 2001. Benign stereotactic core biopsy of the left breast, April 11, 2000. Physical Findings: A clinical breast exam by your physician is recommended on an annual basis and results should be correlated with mammographic findings. MG 3D Screening Mammo W/Cad Bilateral CC and MLO view(s) were taken. Prior study comparison: August 17, 2018, bilateral MG 3d screening mammo w/cad. August 14, 2010, bilateral diagnostic digital mammog. The breast tissue is heterogeneously dense. This may lower the sensitivity of mammography. Stable benign calcifications. There is no discrete abnormality. No significant changes when compared with prior studies. ASSESSMENT: Benign, BI-RAD 2 RECOMMENDATION: Routine screening mammogram of both breasts in 1 year.
== END | disposition home or self-care (01) ==
LOC: RADMAMWWP 14:36
PROVIDERS: ATTEND Internal Medicine
DX: Z12.31 Encounter for screening mammogram for malignant neoplasm of breast (principal)
CPT/HCPCS: 77063; 77067

== ENCOUNTER → 2020-03-17 | Outpatient (CLI) | payer MEDICARE, BC ==
--- NOTE | 2020-03-18 08:53 | PE ---
EXAMINATION TYPE: PET CT fusion skull to thigh DATE OF EXAM: 03/17/2020 COMPARISON: Prior PET/CT August 20, 2019 and older studies HISTORY: Lung cancer progress study. History of small cell lung cancer diagnosed February 2016 left lung completed chemotherapy 2016. TECHNIQUE: Following the intravenous administration of 10.8 mCi of F-18 FDG, whole body images were to be attempted from the skull base to the midthigh. A noncontrast CT is to be performed in conjunct ion with the PET scan. SCAN: Subsequent Scan FINDINGS: Due to claustrophobia after injection of radiotracer patient unable to complete PET/CT imag ing. Exam terminated prior to obtaining images. IMPRESSION: As above. As above.
== END | disposition home or self-care (01) ==
LOC: RADPETMAIN 13:38
PROVIDERS: ATTEND Internal Medicine Hematology & Oncology
DX: C34.81 Malignant neoplasm of overlapping sites of right bronchus and lung (principal); F40.240 Claustrophobia; Z92.21 Personal history of antineoplastic chemotherapy; Z92.3 Personal history of irradiation
CPT/HCPCS: 78815; A9552

== ENCOUNTER → 2020-08-07 | Outpatient (CLI) | payer MEDICARE, BC ==
--- NOTE | 2020-08-07 12:21 | CT ---
EXAMINATION TYPE: CT angio chest DATE OF EXAM: 08/07/2020 12:08 PM COMPARISON: 03/31/2020 HISTORY: Shortness of breath. DVT upper extremity. History lung cancer. CT DLP: 376 mGycm Automated exposure control for dose reduction was used. CONTRAST: CTA scan of the thorax is performed with IV Contrast, patient injected with 100 mL of Isovue 370, pul monary embolism protocol. . FINDINGS: LUNGS: Diffuse emphysematous changes are seen. There is a small to moderate sized right pleural effus ion. There is a stable 6 mm nodule consolidation the right lung base likely related atelectasis. Remy tional areas of subsegmental consolidation left lower lobe likely related atelectasis. There is right peribronchial wall thickening is nonspecific with soft tissue fullness involving the right hilum MEDIASTINUM: There is a small filling defect within a distal right pulmonary lower lobe branch best n oted on coronal image 28. There is right peribronchial wall thickening of the mainstem bronchus. The re is a 1.2 cm short axis lymph node in the right hilum. Tiny pericardial effusion noted in the super ior pericardial recess. Atherosclerotic change aorta and coronary artery atherosclerotic change is noted. The report was imme diately called to referring clinician. OTHER: Hypertrophic and degenerative changes of the spine IMPRESSION: 1. On coronal image 28 there is a small filling defect within a right lower lobe pulmonary arterial b ranch. Findings suspicious for a tiny distal right lower lobe pulmonary embolism. 2. Diffuse COPD and small to moderate sized right pleural effusion. Suspected compressive atelectasis at the lung bases. 3. There is right peribronchial wall thickening with the right hilar lymphadenopathy measuring short axis of 1.2 cm correlate clinically. 4. Stable 6 mm left lower lobe pulmonary nodule.
== END | disposition home or self-care (01) ==
LOC: RADCTMAIN 10:39
PROVIDERS: ATTEND Internal Medicine Critical Care Medicine
DX: J44.9 Chronic obstructive pulmonary disease, unspecified (principal); J90 Pleural effusion, not elsewhere classified; J98.4 Other disorders of lung; R59.1 Generalized enlarged lymph nodes; R91.1 Solitary pulmonary nodule; I28.8 Other diseases of pulmonary vessels
CPT/HCPCS: 82565; 84520; 71275; 36415; Q9967

== ENCOUNTER 2020-08-08 11:10 | Day surgery (SDC) | payer MEDICARE, BC ==
[2020-08-08 11:43] VITALS: TEMP 97.8
[2020-08-08 12:59] VITALS: BP 144/81; PULSE 72; RESP 18
--- NOTE | 2020-08-08 13:00 | XR ---
EXAMINATION TYPE: XR chest 1V portable DATE OF EXAM: 08/08/2020 COMPARISON: 06/27/2020 HISTORY: Postthoracentesis TECHNIQUE: Single frontal view of the chest is obtained. FINDINGS: Right-sided consolidation and small effusion. No pneumothorax. Hyperinflation suggests [employer] D. Degenerative change of the spine. Mildly coarsened interstitium with right lower lobe infiltrate a nd small effusion. IMPRESSION: 1. Right lower lobe infiltrate and small effusion. 2. COPD
[2020-08-08 16:47] LABS: Appearance,BF Hazy; Color,BF Orange; Nucleated Cells, Body Fluid 4350 /uL; RBC, Body Fluid 10800 /uL
[2020-08-08 17:20] LABS: Mononuclear WBC,Body Fluid 100 %; Total Cells Counted,Body Fluid 100
[2020-08-09 03:40] LABS: Total Protein, Body Fluid 3410 mg/dL
[2020-08-09 03:57] LABS: Glucose, BF Source Pleural Fluid; Glucose, Body Fluid 113 mg/dL; LDH, Body Fluid Source Pleural Fluid
--- NOTE | 2020-08-09 08:19 | P.PCN ---
Date of Procedure: 08/08/20 Preoperative Diagnosis: Right sided pleural effusion Postoperative Diagnosis: Right sided pleural effusion Procedure(s) Performed: Thoracentesis Anesthesia: local Surgeon: Chris Lucio Estimated Blood Loss (ml): 0 Pathology: other Condition: stable Disposition: same day Operative Findings: A time out was performed and the chest x-ray was reviewed, the appropriate side was confirmed and marked.US of the chest with markings was done by radiology My hands were washed immediately prior to the procedure. I wore a surgical cap, mask with protective eyewear, sterile gown and sterile gloves throughout the procedure. The patient was prepped and draped in a sterile manner using chlorhexidine scrub after the appropriate level was percussed and confirmed by ultrasound. 1% lidocaine was used to anesthesize the skin, subcutaneous tissue, superior aspect of the rib periosteum and parietal pleura. A finder needle was then introduced over the superior aspect of the rib to locate the pleural fluid; 2colored fluid was aspirated at a depth of approximately 2 cm. A 10-blade scalpel was used to delonte the skin at the insertion site. The [id number] needle was then introduced through the skin incision into the pleural space using negative aspiration pressure and the red colometric indicator to confirm appropriate positioning of the needle. The thoracentesis catheter was then threaded without difficulty. 700 ml of turbid colored fluid was removed without difficulty. The catheter was then removed. No immediate complications were noted during the procedure. A post-procedure chest x-ray is pending at the time of this note. The fluid will be sent for studies. Estimated blood loss is 0cc. The CXR post thoracentesis showed no evidence of pneumothorax
== END 2020-08-09 07:06 ==
LOC: PROCWHC3 11:10
PROVIDERS: ATTEND Internal Medicine Critical Care Medicine
DX: J90 Pleural effusion, not elsewhere classified (principal); J44.9 Chronic obstructive pulmonary disease, unspecified; J96.01 Acute respiratory failure with hypoxia; Z85.118 Personal history of other malignant neoplasm of bronchus and lung; Z92.21 Personal history of antineoplastic chemotherapy; Z92.3 Personal history of irradiation; F32.9 Major depressive disorder, single episode, unspecified; E03.9 Hypothyroidism, unspecified; E78.5 Hyperlipidemia, unspecified; Z87.891 Personal history of nicotine dependence; Z79.82 Long term (current) use of aspirin; Z79.899 Other long term (current) drug therapy; Z79.51 Long term (current) use of inhaled steroids; Z79.890 Hormone replacement therapy; Z82.49 Family history of ischemic heart disease and other diseases of the circulatory system; Z80.3 Family history of malignant neoplasm of breast; Z86.19 Personal history of other infectious and parasitic diseases; Z86.718 Personal history of other venous thrombosis and embolism; Z90.710 Acquired absence of both cervix and uterus; Z90.89 Acquired absence of other organs; Z98.890 Other specified postprocedural states
CPT/HCPCS: 32554; 71045; 82945; 83615; 84157; 87070; 87075; 87205; 88108; 88305; 88341; 88342; 89050

== ENCOUNTER → 2020-08-08 | Outpatient (CLI) | payer MEDICARE, BC ==
--- NOTE | 2020-08-08 11:39 | US ---
EXAMINATION TYPE: US chest DATE OF EXAM: 08/08/2020 COMPARISON: Recent CT CLINICAL HISTORY: J90 Pleural effusion. Effusion TECHNIQUE: Targeted ultrasound of the posterior lower bilateral hemithoraces EXAM MEASUREMENTS: Right Pleural Effusion pocket size: 10.8 cm Right skin surface to fluid distance: 3.0 cm Left Pleural Effusion pocket size: 0 cm Right side marked for possible thoracentesis outside the dept. Left side NOT marked for possible thoracentesis outside the dept. Pulmonologists are able to review the images in the patient?s EMR. IMPRESSIONS: 1. Ultrasound for pleural fluid evaluation. Right pleural fluid is present.
== END | disposition home or self-care (01) ==
LOC: RADUSWWP 10:48
PROVIDERS: ATTEND Internal Medicine Critical Care Medicine
DX: J94.8 Other specified pleural conditions (principal)
CPT/HCPCS: 76604

== ENCOUNTER 2020-09-10 15:52 | Inpatient (IN) | payer MEDICARE, BC ==
--- NOTE | 2020-09-10 16:29 | ED ---
SOB HPI - General Chief Complaint: Shortness of Breath Stated Complaint: SOB, Weakness Time Seen by Provider: 09/10/20 16:11 Source: patient, family Mode of arrival: ambulatory Limitations: no limitations - History of Present Illness Initial Comments: Is a 72-year-old female with a history of COPD and lung cancer back in 2016 who [address] him in [facility] for progressively worsening shortness of breath over last couple weeks. The patient states that she recently was placed on oxygen and wears 2 L of home O2 at home. She states that when she gets up and takes oxygen off she becomes very dyspneic. She states that she also had a thoracentesis performed 2 weeks ago and had the fluid analyzed which did not reveal any evidence for cancerous cells area and she follows with Dr. Lucio. She states that she came in today because she's having persistent symptoms and exertional shortness of breath or she denies any chest pain. No fevers or chills. No cough. She states that she really has not had any other symptoms. No lower extremity swelling. No lower extremity pain. She states that she was started on L course by Dr. Lucio because there was questionable pulmonary embolism a nurse CAT scan. She has been compliant with this. She takes all questions. She otherwise denies any other complaints. - Related Data Home Medications Medication Instructions Recorded Confirmed Atorvastatin [Lipitor] 20 mg PO DAILY 02/07/16 09/10/20 Levothyroxine Sodium [Synthroid] 100 mcg PO DAILY 02/07/16 09/10/20 [place] Carbonate 300 mg PO DAILY 02/07/16 09/10/20 Sertraline [Zoloft] 100 mg PO DAILY 02/07/16 09/10/20 atenoloL [Tenormin] 50 mg PO DAILY 02/07/16 09/10/20 Albuterol Nebulized [Ventolin 2.5 mg INHALATION RT-QID 06/03/17 09/10/20 Nebulized] Budesonide-Formot 160-4.5 Mcg 2 puff INHALATION RT-BID 06/03/17 09/10/20 [Symbicort 160-4.5 Mcg Inhaler] Albuterol Sulfate [Ventolin HFA] 2 puff INHALATION RT-Q4H PRN 09/10/20 09/10/20 Apixaban [Eliquis] 5 mg PO BID 09/10/20 09/10/20 Cholecalciferol [Vitamin D3 (25 50 mcg PO BID 09/10/20 09/10/20 Mcg = 1000 Iu)] Primidone [Mysoline] 50 mg PO DAILY 09/10/20 09/10/20 Vitamin E Acetate [Vitamin E] 200 unit PO DAILY 09/10/20 09/10/20 Allergies Allergy/AdvReac Type Severity Reaction Status Date / Time latex Allergy Swelling Verified 09/10/20 18:15 Review of Systems ROS Statement: Those systems with pertinent positive or pertinent negative responses have been documented in the HPI. ROS Other: All systems not noted in ROS Statement are negative. Past Medical History Past Medical History: Atrial Flutter, Asthma, Cancer, COPD, Deep Vein Thrombosis (DVT), Hyperlipidemia, Osteoarthritis (OA), Pneumonia, Thyroid Disorder Additional Past Medical History / Comment(s): "blockage left ureter" hx migraines, chokes easily, diff swallowing after aspiriation 03/2017, hx cancerous tumor in left lung-tx with radiation 02/2016-09/2016, hx blood clots near heart, in rt arm and rt carotid artery. hx ulcers, History of Any Multi-Drug Resistant Organisms: None Reported Past Surgical History: Adenoidectomy, Appendectomy, Hysterectomy, Tonsillectomy Additional Past Surgical History / Comment(s): colonoscopy, CORE BX lt breast bx x3 has markers in place. rt hand sx to repair after injury-has limited strength in rt hand, LEFT PYELOPLASTY WITH JJ CATHETER Past Anesthesia/Blood Transfusion Reactions: No Reported Reaction Past Psychological History: Anxiety, Depression Smoking Status: Former smoker Past Alcohol Use History: None Reported Past Drug Use History: None Reported - Past Family History Father Additional Family Medical History / Comment(s): at age 48 from cerebral hemorrage Mother Family Medical History: Cancer Additional Family Medical History / Comment(s): LUNG CANCER Sister(s) Family Medical History: Cancer Additional Family Medical History / Comment(s): LUNG CANCER General Exam - General Exam Comments Initial Comments: Constitutional: [Awake alert] [Appears comfortable] Head: [Normocephalic atraumatic] Eyes: [no conjunctival injection] [No scleral icterus] [EOMI] Neck: [No JVD] [Supple] Heart: [Regular rate rhythm] [normal S1-S2] [no murmurs] Lungs: [Clear to auscultation bilaterally] [No wheezing] [No rales] Abdomen: [Soft] [nondistended] [nontender] Extremities: [Non edematous] [DP pulses intact] [Radial pulses intact] Neuro: [A&Ox3] [No focal neurologic deficits] Psych: [Appropriate mood and affect] Limitations: no limitations Course Vital Signs 09/10/20 09/10/20 09/10/20 15:53 16:00 18:01 Temperature 99 F Pulse Rate 97 91 Respiratory 18 20 18 Rate Blood Pressure 176/79 152/89 O2 Sat by Pulse 90 L 91 L Oximetry - Reevaluation(s) Reevaluation #1: EKG showing normal sinus rhythm with a rate of 87. There is no abnormal ST segment changes or T-wave inversions. QTC is 4:30. Other intervals normal. No ectopy. 09/10/20 18:28 Medical Decision Making - Medical Decision Making This is a 80-year-old female who presents emergency department for worsening dyspnea over the last 2 weeks. Vital signs are stable on arrival area the patient otherwise did not appear dyspneic however she did have a slightly low oxygen saturation at 90%. She was nasal cannula with improvement in her oxand s aturation. Patient had multiple studies performed that did not reveal any acute abnormalities except for CTA which did not show pulmonary embolism however did show recurrence of her right-sided pleural effusion and possible infiltrate.The patient was started on Rocephin and azithromycin to cover her for Community aquired pneumonia. She may require another thoracentesis in order to improve her dyspnea. Spoke with who accepted the patient for admission. - Lab Data Result diagrams: 09/10/20 17:09 09/10/20 17:09 Lab Results 09/10/20 09/10/20 09/10/20 Range/Units 17: 17: 17:09 WBC 5.7 (3.8-10.6) k/uL RBC 4.60 (3.80-5.40) m/uL Hgb 15.0 (11.4-16.0) gm/dL Hct 44.3 (34.0-46.0) % MCV 96.4 (80.0-100.0) fL MCH 32.7 (25.0-35.0) pg MCHC 33.9 (31.0-37.0) g/dL RDW 13.2 (11.5-15.5) % Plt Count 162 (150-450) k/uL MPV 6.8 Neutrophils % 82 % Lymphocytes % 6 % Monocytes % 9 % Eosinophils % 2 % Basophils % 0 % Neutrophils # 4.7 (1.3-7.7) k/uL Lymphocytes # 0.3 L (1.0-4.8) k/uL Monocytes # 0.5 (0-1.0) k/uL Eosinophils # 0.1 (0-0.7) k/uL Basophils # 0.0 (0-0.2) k/uL PT 9.9 (9.0-12.0) sec INR 0.9 (<1.2) APTT 23.0 (22.0-30.0) sec Sodium 138 (137-145) mmol/L Potassium 4.3 (3.5-5.1) mmol/L Chloride 106 (98-107) mmol/L Carbon Dioxide 24 (22-30) mmol/L Anion Gap 8 mmol/L BUN 12 (7-17) mg/dL Creatinine 0.69 (0.52-1.04) mg/dL Est GFR (CKD-EPI)AfAm >90 (>60 ml/min/1.73 sqM) Est GFR (CKD-EPI)NonAf 84 (>60 ml/min/1.73 sqM) Glucose 104 H (74-99) mg/dL Calcium 9.8 (8.4-10.2) mg/dL Magnesium 2.0 (1.6-2.3) mg/dL Total Bilirubin 0.4 (0.2-1.3) mg/dL AST 23 (14-36) U/L ALT 18 (4-34) U/L Alkaline Phosphatase 90 (38-126) U/L Troponin I (0.000-0.034) ng/mL Total Protein 6.6 (6.3-8.2) g/dL Albumin 4.1 (3.5-5.0) g/dL [place] 0.4 mmol/L Coronavirus (PCR) (Not Detectd) 09/10/20 09/10/20 Range/Units 17:09 19:24 WBC (3.8-10.6) k/uL RBC (3.80-5.40) m/uL Hgb (11.4-16.0) gm/dL Hct (34.0-46.0) % MCV (80.0-100.0) fL MCH (25.0-35.0) pg MCHC (31.0-37.0) g/dL RDW (11.5-15.5) % Plt Count (150-450) k/uL MPV Neutrophils % % Lymphocytes % % Monocytes % % Eosinophils % % Basophils % % Neutrophils # (1.3-7.7) k/uL Lymphocytes # (1.0-4.8) k/uL Monocytes # (0-1.0) k/uL Eosinophils # (0-0.7) k/uL Basophils # (0-0.2) k/uL PT (9.0-12.0) sec INR (<1.2) APTT (22.0-30.0) sec Sodium (137-145) mmol/L Potassium (3.5-5.1) mmol/L Chloride (98-107) mmol/L Carbon Dioxide (22-30) mmol/L Anion Gap mmol/L BUN (7-17) mg/dL Creatinine (0.52-1.04) mg/dL Est GFR (CKD-EPI)AfAm (>60 ml/min/1.73 sqM) Est GFR (CKD-EPI)NonAf (>60 ml/min/1.73 sqM) Glucose (74-99) mg/dL Calcium (8.4-10.2) mg/dL Magnesium (1.6-2.3) mg/dL Total Bilirubin (0.2-1.3) mg/dL AST (14-36) U/L ALT (4-34) U/L Alkaline Phosphatase (38-126) U/L Troponin I <0.012 (0.000-0.034) ng/mL Total Protein (6.3-8.2) g/dL Albumin (3.5-5.0) g/dL [place] mmol/L Coronavirus (PCR) Not Detected (Not Detectd) Disposition Clinical Impression: Pleural effusion, CAP (community acquired pneumonia) Disposition: ADMITTED IP TO [facility] Condition: Stable Referrals: Reina Clark NPC [Primary Care Provider] - 1-2 days
[2020-09-10 17:17] LABS: Basophils % (A) 0 %; Eosinophils # (A) 0.1 k/uL (0-0.7); Eosinophils % (A) 2 %; HCT 44.3 % (34.0-46.0); Lymphocytes # (A) 0.3 k/uL (1.0-4.8); Lymphocytes % (A) 6 %; MCH 32.7 pg (25.0-35.0); MCHC 33.9 g/dL (31.0-37.0); MCV 96.4 fL (80.0-100.0); Mean Platelet Volume 6.8; Monocytes # (A) 0.5 k/uL (0-1.0); Monocytes % (A) 9 %; Neutrophils # (A) 4.7 k/uL (1.3-7.7); Neutrophils % (A) 82 %; Platelet Count 162 k/uL (150-450); RDW 13.2 % (11.5-15.5); WBC 5.7 k/uL (3.8-10.6)
[2020-09-10 17:28] LABS: ALT 18 U/L (4-34); AST 23 U/L (14-36); African American GFR (CKD) >90 (>60 ml/min/1.73 sqM); Albumin 4.1 g/dL (3.5-5.0); Alkaline Phosphatase 90 U/L (38-126); Anion Gap 8 mmol/L; Blood Urea Nitrogen 12 mg/dL (7-17); Calcium 9.8 mg/dL (8.4-10.2); Carbon Dioxide 24 mmol/L (22-30); Chloride 106 mmol/L (98-107); Glucose 104 mg/dL (74-99); Lithium 0.4 mmol/L; Non-African American GFR(CKD) 84 (>60 ml/min/1.73 sqM); Potassium 4.3 mmol/L (3.5-5.1); Sodium 138 mmol/L (137-145); Total Bilirubin 0.4 mg/dL (0.2-1.3); Total Protein 6.6 g/dL (6.3-8.2)
[2020-09-10 17:32] LABS: INR 0.9 (<1.2); Prothrombin Time 9.9 sec (9.0-12.0)
--- NOTE | 2020-09-10 18:29 | CT ---
EXAMINATION TYPE: CT angio chest DATE OF EXAM: 09/10/2020 COMPARISON: 08/07/2020 HISTORY: Dyspnea. Hx copd, asthma. Pt recently had thoracentesis. CT DLP: 241.2 mGycm Automated exposure control for dose reduction was used. CONTRAST: Performed with IV Contrast, patient injected with 100 mL of Isovue 370. There are 3-D post processed images. There is moderate size right pleural effusion. There is some infiltrate and atelectasis in the right lower lobe adjacent to the pleural fluid. Heart is borderline enlarged. There is no pericardial effus ion. There are no hilar masses. There are a few bronchial lymph nodes that measure up to 1 cm. There is no mediastinal adenopathy. Thoracic aorta is intact. There is no dissection. The ascending aorta m easures 3.6 cm. There is mild atelectasis left lung base. There is no evidence of filling defect in the pulmonary arteries. Thoracic vertebra have normal alignment. There is no compression fracture. The bony thorax is intact. IMPRESSION: No evidence of pulmonary embolism. Moderate right pleural effusion unchanged. There is some increased infiltrate and atelectasis is trever cent to the pleural fluid compared to old exam. There is new mild diffuse pulmonary interstitial infi ltrate compared to old exam. There is underlying emphysema.
--- NOTE | 2020-09-10 18:32 | XR ---
EXAMINATION TYPE: XR chest 2V DATE OF EXAM: 09/10/2020 COMPARISON: August 09, 2020 HISTORY: Short of breath TECHNIQUE: FINDINGS: There is blunting right costophrenic angle and mild atelectasis right lung base. There is n o gross heart failure. Thoracic aorta is atheromatous. There are no hilar masses. Bony thorax is inta ct. IMPRESSION: There is increasing right pleural effusion and right basilar atelectasis compared to old exam. No obvious heart failure.
[2020-09-10] MEDS ORDERED: AZITHROMYCIN 500 MG in SODIUM CHLORIDE 0.9% 250 ML IVPB STA ×2 (19:26→23:06)
[2020-09-10] MEDS ORDERED: NALOXONE 0.4 MG/ML 1 ML VIAL IV PRN (19:44)
[2020-09-10] MEDS ORDERED: IPRATROPIUM-ALBUTEROL 3 ML NEB INHALATION PRN (21:49)
[2020-09-10] MEDS ORDERED: ALBUTEROL SULFATE INHALATION PRN (21:49)
--- NOTE | 2020-09-10 22:36 | P.HPIM ---
History of Present Illness H&P Date: 09/10/20 Chief Complaint: shortness of breath 80 year old female with history of venous thromboembolism, afluter, lung cancer, hypothyroid patient comes in for progressive shortness of breath, over the past few days, associated with mild occasional coughing, denies any fever, chills, hemoptysis , chest pain. she was growing concerned over the past few days. she uses oxygen 2 L at home, typically she is able to take it off for few minutes when goes to the bathroom , but with her increased shortness of breath , she has not been able to do so and dropped her oxygen sat to 80s todays or yesterday. she also having increase work of breathing even at rest, and was feeling anxious about it , for which she decided to come in for evaluation. she reports that 2 weeks ago , she had right thoracentesis, which made her feel better, however, her symptoms of increase work of breathing has progressively worsened again over past 1 week. she recalls , history of lung cancer treated with chemo and radiation 2016, she quit smoking 12 years ago . she otherwise denies any chest pain , leg swelling, recent traveling. she has been compliant with her meds. in the ED, xray , did show right pleural effusion . CTA of chest no acute PE, but suspicious for new infiltrates. blood work , unremarkable overall Patient currently feeling very comfortable she's on 2 L nasal cannula she reports that probably anxiety was part of what driven her to come to the hospital she feels more safe and secured now that she is in the hospital and hoping to see Dr. Lucio from pulmonary in the morning for evaluation. Review of Systems Pertinent positives as noted in HPI. All other systems were reviewed and are negative Past Medical History Past Medical History: Atrial Flutter, Asthma, Cancer, COPD, Deep Vein Thrombosis (DVT), Hyperlipidemia, Osteoarthritis (OA), Pneumonia, Thyroid Disorder Additional Past Medical History / Comment(s): "blockage left ureter" hx migraines, chokes easily, diff swallowing after aspiriation 03/2017, hx cancerous tumor in left lung-tx with radiation 02/2016-09/2016, hx blood clots near heart, in rt arm and rt carotid artery. hx ulcers, History of Any Multi-Drug Resistant Organisms: None Reported Past Surgical History: Adenoidectomy, Appendectomy, Hysterectomy, Tonsillectomy Additional Past Surgical History / Comment(s): colonoscopy, CORE BX lt breast bx x3 has markers in place. rt hand sx to repair after injury-has limited strength in rt hand, LEFT PYELOPLASTY WITH JJ CATHETER Past Anesthesia/Blood Transfusion Reactions: No Reported Reaction Past Psychological History: Anxiety, Depression Smoking Status: Former smoker Past Alcohol Use History: None Reported Past Drug Use History: None Reported - Past Family History Father Additional Family Medical History / Comment(s): at age 48 from cerebral hemorrage Mother Family Medical History: Cancer Additional Family Medical History / Comment(s): LUNG CANCER Sister(s) Family Medical History: Cancer Additional Family Medical History / Comment(s): LUNG CANCER Medications and Allergies Home Medications Medication Instructions Recorded Confirmed Type Atorvastatin [Lipitor] 20 mg PO DAILY 02/07/16 09/10/20 History Levothyroxine Sodium [Synthroid] 100 mcg PO DAILY 02/07/16 09/10/20 History [place] Carbonate 300 mg PO DAILY 02/07/16 09/10/20 History Sertraline [Zoloft] 100 mg PO DAILY 02/07/16 09/10/20 History atenoloL [Tenormin] 50 mg PO DAILY 02/07/16 09/10/20 History Albuterol Nebulized [Ventolin 2.5 mg INHALATION RT-QID 06/03/17 09/10/20 History Nebulized] Budesonide-Formot 160-4.5 Mcg 2 puff INHALATION RT-BID 06/03/17 09/10/20 History [Symbicort 160-4.5 Mcg Inhaler] Albuterol Sulfate [Ventolin HFA] 2 puff INHALATION RT-Q4H PRN 09/10/20 09/10/20 History Apixaban [Eliquis] 5 mg PO BID 09/10/20 09/10/20 History Cholecalciferol [Vitamin D3 (25 50 mcg PO BID 09/10/20 09/10/20 History Mcg = 1000 Iu)] Primidone [Mysoline] 50 mg PO DAILY 09/10/20 09/10/20 History Vitamin E Acetate [Vitamin E] 200 unit PO DAILY 09/10/20 09/10/20 History Allergies Allergy/AdvReac Type Severity Reaction Status Date / Time latex Allergy Swelling Verified 09/10/20 18:15 Physical Exam Vitals: Vital Signs Temp Pulse Resp BP Pulse Ox 09/10/20 18:01 91 18 152/89 91 L 09/10/20 16:00 20 09/10/20 15:53 99 F 97 18 176/79 90 L Intake and Output 09/10/20 09/10/20 09/10/20 06:59 14:59 22:59 Other: Weight 71.214 kg Constitutional: No acute distress, conversant, pleasant Eyes: Anicteric sclerae, moist conjunctiva, Pupils equal round reactive to light ENMT: NC/AT Oropharynx clear, no erythema, or exudates Neck: Supple, FROM, no masses, or JVD No carotid bruits No thyromegaly Lungs: Decreased breath sounds over right mid and lower lung with rales no wheezing Decreased tone of percussion over right lower lung Normal respiratory effort, no accessory muscle use Cardiovascular: Heart regular in rate and rhythm, No murmurs, gallops, or rubs No peripheral edema Abdominal: Soft Nontender, no guarding, rebound or rigidity Abdomen moving with respiration Normoactive bowel sounds No hepatomegaly, No splenomegaly No palpable mass No abdominal wall hernia noted Skin: Normal temperature, tone, texture, turgor No induration No subcutaneous nodules No rash, lesions No ulcers Extremities: No digital cyanosis No clubbing Pedal pulses intact and symmetrical Radial pulses intact and symmetrical No calf tenderness Psychiatric: Alert and oriented to person, place and time Appropriate affect fair judgement Neuro Muscles Strength 5/5 in all 4 extremities Sensation to light touch grossly present throughout Cranial nerves II-XII grossly intact No focal sensory deficits Lymphatics: no palpable cervical or supraclavicular , or inguinal lymph nodes Results CBC & Chem 7: 09/10/20 17:09 09/10/20 17:09 Labs: Abnormal Lab Results - Last 24 Hours (Table) 09/10/20 09/10/20 Range/Units 17:09 17:09 Lymphocytes # 0.3 L (1.0-4.8) k/uL Glucose 104 H (74-99) mg/dL Assessment and Plan Assessment: Acute on chronic hypoxic respiratory failure Exertional dyspnea with recurrent right pleural effusion COPD currently compensated History of a flutter History of venous thromboembolism History of lung cancer status post chemoradiation 2017 Hypothyroid Plan Supplemental oxygen as needed Pulmonary consultation Patient started on antibiotic for possible infiltrates suspicious for pneumonia Resume home medications CODE STATUS: Full code DVT prophylaxis: On Eliquis Discussed with: Patient, ER, RN Anticipated length of stay less than [address]: Home A total of 75 minutes was spent on the care of this complex patient more than 50% of the time was spent in counseling and care coordination.
[2020-09-10] MEDS: APIXABAN 5 MG TAB PO SCH (23:05)
[2020-09-10] MEDS: ZOLPIDEM 5 MG TAB PO PRN (23:48)
[2020-09-11] MEDS: LEVOTHYROXINE 100 MCG TAB PO SCH (05:34)
[2020-09-11] MEDS: PRIMIDONE 50 MG TAB PO SCH (08:06)
[2020-09-11] MEDS: APIXABAN 5 MG TAB PO SCH (08:06)
[2020-09-11] MEDS: ATORVASTATIN 20 MG TAB PO SCH (08:06)
[2020-09-11] MEDS: SERTRALINE 100 MG TAB PO SCH (08:06)
[2020-09-11] MEDS: LITHIUM CARBONATE 300 MG CAP PO SCH (08:07)
[2020-09-11] MEDS: atenoloL 50 MG TAB PO SCH (08:07)
[2020-09-11] MEDS: ALBUTEROL HFA INHALER INHALATION SCH ×3 (11:44→20:07)
[2020-09-11] MEDS: methylPREDNISolone SOD SUCCI 125 MG/2 ML VIAL IV SCH ×3 (12:33→23:18)
--- NOTE | 2020-09-11 13:18 | ECHOF ---
Referral Reason:pleural effusion MEASUREMENTS -------- HEIGHT: 165.1 cm WEIGHT: 71.2 kg BP: 128/75 RVIDd: 3.3 cm (< 3.3) IVSd: 1.5 cm (0.6 - 1.1) LVIDd: 4.4 cm (3.9 - 5.3) LVPWd: 1.4 cm (0.6 - 1.1) IVSs: 1.7 cm LVIDs: 2.9 cm LVPWs: 1.7 cm LAESV Index (A-L): 27.69 ml/m Ao Diam: 3.5 cm (2.0 - 3.7) AV Cusp: 1.5 cm (1.5 - 2.6) LA Diam: 4.3 cm (2.7 - 3.8) MV EXCURSION: 14.270 mm (> 18.000) MV EF SLOPE: 71 mm/s (70 - 150) EPSS: 1.0 cm MV E Chemo: 0.99 m/s MV DecT: 154 ms MV A Chemo: 0.86 m/s MV E/A Ratio: 1.15 AR PHT: 408 ms RAP: 5.00 mmHg RVSP: 53.21 mmHg FINDINGS -------- Sinus rhythm. This was a technically difficult study with suboptimal views. The left ventricular size is normal. There is moderate concentric left ventricular hypertrophy. O verall left ventricular systolic function is normal with, an EF between 55 - 60 %. The right ventricle is mildly enlarged. Normal LA size by volume 22+/-6 ml/m2. The right atrium is mildly enlarged. 5.0mg of Lumason was utilized for enhancement of images Interatrial and interventricular septum intact. There is mild aortic valve sclerosis. There is mild aortic regurgitation. There is no evidence of aortic stenosis. Mild mitral annular calcification present. Yncc-qi-xtsnefkh mitral regurgitation is present. The tricuspid valve appears structurally normal. Xjtj-pm-cxtcliev tricuspid regurgitation present. There is moderate pulmonary hypertension. The right ventricular systolic pressure, as measured by Doppler, is 53.21mmHg. Trace/mild (physiologic) pulmonic regurgitation. The aortic root size is normal. IVC Not well visulized. There is no pericardial effusion. CONCLUSIONS -------- 1. This was a technically difficult study with suboptimal views. 2. There is moderate concentric left ventricular hypertrophy. 3. Overall left ventricular systolic function is normal with, an EF between 55 - 60 %. 4. The right ventricle is mildly enlarged. 5. The right atrium is mildly enlarged. 6. There is mild aortic valve sclerosis. 7. There is mild aortic regurgitation. 8. Xblj-ut-rlzksquw mitral regurgitation is present. 9. Sefm-hl-unyerdrr tricuspid regurgitation present. 10. There is moderate pulmonary hypertension. 11. Trace/mild (physiologic) pulmonic regurgitation. CORRECTIONS CASEWORKER: Yanely Mon RDCS
--- NOTE | 2020-09-11 13:44 | US ---
EXAMINATION TYPE: US chest DATE OF EXAM: 09/11/2020 COMPARISON: Chest x-ray 09/10/2020 CLINICAL HISTORY: shortness of breath. SOB, right pleural effusion TECHNIQUE: Targeted ultrasound of the posterior lower bilateral hemithoraces EXAM MEASUREMENTS: Right Pleural Effusion pocket size: 10.2 cm - lung noted Right skin surface to fluid distance: 3.0 cm Left Pleural Effusion pocket size: no significant fluid collection at this time Right side marked for possible thoracentesis outside the dept. Left side NOT marked for possible thoracentesis outside the dept. Pulmonologists are able to review the images in the patient?s EMR. IMPRESSIONS: Right pleural effusion
--- NOTE | 2020-09-11 14:19 | P.CNPUL ---
History of Present Illness Consult date: 09/11/20 Reason for consult: dyspnea, COPD, pleural effusion History of present illness: -year-old female patient with known history of COPD and previous history of non- small cell lung cancer who came into the emergency department because of worsening shortness of breath. She was getting more hypoxic and the patient had use of oxygen as the patient has noticed some exertional oxygen desaturation. She denied having any chest pain. No significant cough sputum production chest tightness or wheezing. For that reason, the patient came into the hospital. Note that the patient on her most recent CAT scan of the chest that was done as follow-up for her small cell lung cancer, she was found to have a moderate-sized right-sided pleural effusion. I performed a thoracentesis and removed approximately 7 50 mL of pleural fluid from the right lung. There was no evidence of malignancy on the fluid cytology. I think the fluid itself was a transudate. At that point, there was a questionable filling defect in the right lower lobe pulmonary artery based on the CAT scan findings and I put the patient on anticoagulation. She is still on Eliquis for now. As far as her small cell lung cancer, this was a limited stage and the patient was treated with accommodation chemoradiation therapy without any major toxicity. The patient was being monitored by PET scan that was initially done in April 2017 and later on on 11/01/2017 and later on on 06/13/2018 that showed no evidence of any disease recurrence. The follow-up PET scan from 02/06/2019 showed a small right-sided pleural effusion. The patient had a follow-up PET scan on 08/20/2019 that showed no evidence of any malignancy. There was stable right- sided pleural effusion. No evidence of any activity or uptake within the lungs or the rest of the body and the patient was assumed to be in remission. A subsequent CAT scan of the chest that was done on 03/29/2020 showed no evidence of any tumor recurrence and disease was still in remission. As far as her COPD, her FEV1 is in the order of 74% of predicted. She does have a remote history of DVT and she completed anticoagulation in the past and based on a questionable filling defect in the right lower lobe pulmonary artery branch, the patient was restarted back on anticoagulants. Review of Systems Patient reports exercise intolerance but reports no fever, no night sweats, no significant weight gain, and no significant weight loss; pounds lost during the chemoradiation therapy. She reports shortness of breath when walking but reports no chest pain, no arm pain on exertion, no shortness of breath when lying down, no palpitations, and no known heart murmur. She reports cough, wheezing, and lynn rtness of breath but reports no coughing up blood and no sleep apnea. She reports no abdominal pain, no nausea, no vomiting, no constipation, normal appetite, no diarrhea, not vomiting blood, no dyspepsia, and no GERD; Dysphagia. She reports no dry eyes, no vision change, and no irritation. She reports no difficulty hearing and no ear pain. She reports no frequent nosebleeds, no nose problems, and no sinus problems. She reports no sore throat, no bleeding gums, no snoring, no dry mouth, no mouth ulcers, no oral abnormalities, and no teeth problems. She reports no incontinence, no difficulty urinating, no hematuria, and no increased frequency. She reports no muscle aches, no muscle weakness, no arthralgias/joint pain, no back pain, and no swelling in the extremities. She reports no abnormal mole, no jaundice, no rashes, and no laceration. She reports no loss of consciousness, no weakness, no numbness, no seizures, no dizziness, no migraines, no headaches, and no tremor. She reports no depression, no sleep disturbances, feeling safe in a relationship, no alcohol abuse, no anxiety, no h allucinations, and no suicidal thoughts. She reports no fatigue. She reports no swollen glands, no bruising, and no excessive bleeding. She reports no runny nose, no sinus pressure, no itching, no hives, and no frequent sneezing. Past Medical History Past Medical History: Atrial Flutter, Cancer, COPD, Deep Vein Thrombosis (DVT), Hyperlipidemia, Osteoarthritis (OA), Pneumonia, Thyroid Disorder Additional Past Medical History / Comment(s): Small cell lung cancer, details discussed above treated with chemoradiation therapy, right-sided pleural effusion postthoracentesis, history of difficulty in swallowing with previous aspiration back in 2017 following her cancer treatment, history of right carotid artery disease, history of right upper extremity DVT, hyperlipidemia, hypertension, hypothyroidism, COPD. She also has history of migraines. History of Any Multi-Drug Resistant Organisms: None Reported Past Surgical History: Adenoidectomy, Appendectomy, Hysterectomy, Tonsillectomy Additional Past Surgical History / Comment(s): colonoscopy, CORE BX lt breast bx x3 has markers in place. rt hand sx to repair after injury-has limited strength in rt hand, LEFT PYELOPLASTY WITH JJ CATHETER Past Anesthesia/Blood Transfusion Reactions: No Reported Reaction Past Psychological History: Anxiety, Depression Smoking Status: Former smoker Past Alcohol Use History: None Reported Past Drug Use History: None Reported - Past Family History Father Additional Family Medical History / Comment(s): at age 48 from cerebral hemorrage Mother Family Medical History: Cancer Additional Family Medical History / Comment(s): LUNG CANCER Sister(s) Family Medical History: Cancer Additional Family Medical History / Comment(s): LUNG CANCER Medications and Allergies Home Medications Medication Instructions Recorded Confirmed Type Atorvastatin [Lipitor] 20 mg PO DAILY 02/07/16 09/10/20 History Levothyroxine Sodium [Synthroid] 100 mcg PO DAILY 02/07/16 09/10/20 History [place] Carbonate 300 mg PO DAILY 02/07/16 09/10/20 History Sertraline [Zoloft] 100 mg PO DAILY 02/07/16 09/10/20 History atenoloL [Tenormin] 50 mg PO DAILY 02/07/16 09/10/20 History Albuterol Nebulized [Ventolin 2.5 mg INHALATION RT-QID 06/03/17 09/10/20 History Nebulized] Budesonide-Formot 160-4.5 Mcg 2 puff INHALATION RT-BID 06/03/17 09/10/20 History [Symbicort 160-4.5 Mcg Inhaler] Albuterol Sulfate [Ventolin HFA] 2 puff INHALATION RT-Q4H PRN 09/10/20 09/10/20 History Apixaban [Eliquis] 5 mg PO BID 09/10/20 09/10/20 History Cholecalciferol [Vitamin D3 (25 50 mcg PO BID 09/10/20 09/10/20 History Mcg = 1000 Iu)] Primidone [Mysoline] 50 mg PO DAILY 09/10/20 09/10/20 History Vitamin E Acetate [Vitamin E] 200 unit PO DAILY 09/10/20 09/10/20 History Allergies Allergy/AdvReac Type Severity Reaction Status Date / Time latex Allergy Swelling Verified 09/10/20 18:15 Physical Exam Vitals: Vital Signs Temp Pulse Pulse Resp BP BP Pulse Ox 09/11/20 08:15 18 09/11/20 08:00 98.4 F 80 18 128/75 94 L 09/11/20 05:30 97.6 F 83 18 152/71 95 09/11/20 02:15 98.1 F 73 15 135/80 94 L 09/10/20 21:35 98.1 F 86 16 142/86 95 09/10/20 20:20 76 18 94 L 09/10/20 18:01 91 18 152/89 91 L 09/10/20 16:00 20 09/10/20 15:53 99 F 97 18 176/79 90 L Intake and Output 09/10/20 09/11/20 09/11/20 22:59 06:59 14:59 Other: # Voids 3 Weight 71.214 kg COPD: General Appearance no diaphoresis, dyspnea, pallor, or respiratory distress and speech not interrupted by breaths, not cachectic, well nourished, and appears well. HEENT no pursed lip breathing, jugular venous distention, mucous membrane cyanosis, or perioral cyanosis and mallampati classification: class 1 and Mallampati Classification: Class 3. Chest no retractions, rhonchi, hyperinflation, barrel chest, sternocleidomastoid muscle contractions, s upraclavicular retractions, intercostal retractions, or decreased air movement; prolonged expiratory wheezing and decreased air movement; and (normal) adventitious sounds: rales / crackles: bilaterally: midlung hu; scars related to shingles over the left posterior chest area. Heart no right vent ricular heave, distant heart sounds, or s3 gallop and (normal) jugular vein and vein: jugular venous distention: by 0cm. GI bowel sounds: hyperactive (borborygmi) and diminished or absent. Extremities no cyanosis, clubbing, or edema. Neurologic no somnolence, confusion, or decreased mental status. A ssisstive Devices: ambulates with no assitive devices. Gait and Mobility: gait WNL and full weight bearing. Results - Laboratory Findings CBC and BMP: 09/10/20 17:09 09/10/20 17:09 PT/INR, D-dimer PT 9.9 sec (9.0-12.0) 09/10/20 17:09 INR 0.9 (<1.2) 09/10/20 17:09 Abnormal lab findings: Abnormal Labs 09/10/20 09/10/20 17:09 17:09 Lymphocytes # 0.3 L Glucose 104 H - Diagnostic Findings Chest x-ray: image reviewed CT scan - chest: image reviewed Assessment and Plan Plan: 1 shortness of breath which is essentially multifactorial. The patient developed worsening shortness of breath. Nevertheless the CAT scan of the chest shows a rather stable right-sided pleural effusion. No evidence of any pulmonary embolism and the patient has been already had anticoagulants and she is receiving Eliquis. She does have COPD which may be exacerbating. There is small cell lung cancer and essentially stable anticoagulation. 2 small cell lung cancer. Limited stage small cell lung cancer treated by chemoradiation therapy without any major side effect or toxicity. . The follow- up PET scan that has been done since her treatment from April 2017 and later on from 11/01/2017 and later on from 06/13/2018 showed no evidence of any disease recurrence and the patient continues to be in disease remission following her chemoradiation therapy. the follow-up PET scan that was done on 02/06/2019 showed development of a small right-sided pleural effusion. Patient had a follow-up PET scan on 08/20/2019 that showed no evidence of any malignancy. There is decrease in the size of the right-sided pleural effusion. No evidence of any activity or uptake within the lungs or the rest of the body and the patient remains in remission. She is reassured. A subsequent CAT scan of the chest that was done in 03/29/2020 showed no evidence of any tumor recurrence and the patient continues to be in remission and she was reassured about that. 3 COPD with an FEV1 of 74% of predicted 4 chronic hypoxic respiratory failure 5 history of a right upper extremity DVT 6 history of compression fracture of the thoracic spine at the level of T4 7 history of hydronephrosis requiring a ureteral stent placement 8 depression 9 hypothyroidism 10 hyperlipidemia 11 hypertension 12 suspected pulmonary embolism based on her recent CAT scan of the chest that showed subsegmental filling defect and right lower lobe pulmonary artery branch. Plan I personally thing the pleural effusions contributing a lot to the patient shortness of breath. Nevertheless, I'm willing to repeat the thoracentesis. Ultrasound of the chest will be done to nick the right-sided pleural effusion. Meanwhile, Eliquis will be based on hold for now. Meanwhile, we'll treat this patient with a combination of bronchodilators and IV Solu-Medrol. We will going to check a proBNP level. Check a pro-calcitonin level. Check a echocardiogram. We'll continue to follow.
--- NOTE | 2020-09-11 14:20 | P.PN ---
<Saúl Olson - Last Filed: 09/11/20 13:42> Subjective Progress Note Date: 09/11/20 Principal diagnosis: Acute on chronic respiratory failure with hypoxia Hospital course: Patient is a 80-year-old female with a past medical history of hypertension, hypothyroidism, COPD, left lung carcinoma going through chemotherapy and radiation completed in 2017 and currently in remission follows with oncologist Dr. Mary, history of DVT on Eliquis, history of tobacco use quitting 12 years ago, and recent pleural effusion requiring thoracentesis on 08/09/[address] Lucio in which 700 mL of turbid colored fluid was removed and patient was started on home O2 at that time. Patient reports after the thoracentesis her breathing was much improved and she was doing well on 2 L home oxygen. She states that she did not start having increased shortness of breath until last Friday (09/04/20). Patient states the shortness of breath was accompanied by a coarse cough and seemed to progressively worsen over the past week and her oxygen was no longer helping her, so she reports she called Dr. Lucio's office and was instructed to go straight to the hospital. Upon arrival to the hospital patient was found to initially be hypoxic at 90% on 2 L O2. X-ray completed which revealed an increasing right pleural effusion and right basilar atelectasis. CTA was negative for PE but confirming moderate right pleural effusion with increased infiltrate and atelectasis adjacent to the pleural fluid. EKG revealed normal sinus rhythm at 87 beats minute with no noted T-wave or ST abnormalities. Labs obtained with CBC, BMP, liver profile, and troponin all unremarkable. ProBNP 294. [place] level slightly subtherapeutic at 0.4. Covid PCR Negative. Patient admitted under our services for acute on chronic respiratory failure with hypoxia with consult to pulmonology secondary to recurrent pleural effusion. Physical exam: Patient is seen and fully evaluated at the bedside. She reports that she seems to be breathing much better than she was upon arrival, stating she feels much safer knowing that we are here to help her. She is currently on 2 L O2 via nasal cannula with respirations even, regular, and unlabored. Patient denies having any headache, lightheadedness, dizziness, chest pain or palpitations, or experiencing any numbness or tingling sensations. General: non toxic, no distress, appears at stated age Derm: warm, dry Head: atraumatic, normocephalic, symmetric Eyes: No lid lag, anicteric sclera Mouth: no lip lesion, mucus membranes moist Cardiovascular: S1S2 reg, no murmur, positive posterior tibial pulses bilaterally, cap refill less than 2 seconds Lungs: Respirations even, regular, and unlabored on 2 L O2 via nasal cannula. No accessory muscle use. Upon auscultation of lungs: Right upper, middle, and lower lobe significantly diminished. No wheezing, rales, or rhonchi noted in left upper or lower lobe. Abdominal: soft, nontender to palpation, no guarding, no appreciable organomegaly Ext: No gross muscle atrophy, no edema, no contractures Neuro: GCS 15, speech clear, no focal neuro deficits Psych: Alert, oriented, pleasant and appropriate affect Plan of care: Acute on chronic respiratory failure with hypoxia secondary to COPD and recurrent pleural effusion -Titrate oxygen as needed to maintain SpO2 equal chest greater than 92%. -Pulmonology following, appreciate further recommendations.. -Bronchodilator protocol with PRN DuoNeb as needed for wheezing or shortness of breath -Patient was started on Solu-Medrol 60 mg every 6 hours by pulmonology -Continue daily Symbicort. -Incentive spirometry. History of the DVT -Continue anticoagulation with Eliquis. Hypertension -Continue daily medication regimen with atenolol 50 mg daily. Hyperlipidemia -Continue daily medication regimen with atorvastatin 20 mg daily. -Heart healthy diet. Hypothyroidism -Continue daily levothyroxine 100 g daily. The patient is admitted with an anticipated greater than 2 midnight stay for evaluation of acute on chronic respiratory failure with hypoxia secondary to COPD and recurrent pleural effusion. CODE STATUS: Full code DVT prophylaxis: Eliquis. Discussed with: Patient and RN Anticipated discharge date: clinical course to determine. Anticipated discharge place: Home A total of 45 minutes was spent on the care of this complex patient more than 50% of the time was spent in counseling and care coordination. Objective - Vital Signs Vital signs: Vital Signs Temp 98.4 F 09/11/20 08:00 Pulse 80 09/11/20 08:00 Resp 18 09/11/20 08:15 BP 128/75 09/11/20 08:00 Pulse Ox 94 L 09/11/20 08:00 Intake & Output 09/10/20 09/11/20 09/11/20 18:59 06:59 18:59 Weight 71.214 kg 71.214 kg Other: # Voids 3 - Labs CBC & Chem 7: 09/10/20 17:09 09/10/20 17:09 Labs: Abnormal Lab Results - Last 24 Hours (Table) 09/10/20 09/10/20 Range/Units 17:09 17:09 Lymphocytes # 0.3 L (1.0-4.8) k/uL Glucose 104 H (74-99) mg/dL <Jose Yen - Last Filed: 09/11/20 17:26> Objective - Vital Signs Vital signs: Vital Signs Temp 97.8 F 09/11/20 14:00 Pulse 55 L 09/11/20 14:00 Resp 18 09/11/20 14:00 BP 138/75 09/11/20 14:00 Pulse Ox 91 L 09/11/20 14:00 Intake & Output 09/10/20 09/11/20 09/11/20 18:59 06:59 18:59 Weight 71.214 kg 71.214 kg Other: # Voids 3 - Labs CBC & Chem 7: 09/10/20 17:09 09/10/20 17:09 Labs: Abnormal Lab Results - Last 24 Hours (Table) 09/10/20 Range/Units 17:09 Glucose 104 H (74-99) mg/dL Assessment and Plan Assessment: Patient seen and evaluated by me independently. Patient was also seen by STACEY, the original author of this note. I am in agreement with the subjective, p hysical exam, and assessment and plan as documented with the addition/changes of my exam and assessment below. Gen: awake, alert HEENT: normocephalic, atraumatic, good hearing acuity, moist mucous membranes Resp: good air exchange, breathing comfortably with no accessory muscle use, diminished breath sounds on the right side, with crackles up to mid chest CVS: good distal perfusion x 4, regular rate and rhythm without murmurs GI: soft, NTTP, ND : no SPT, no CVAT, crespo catheter not present MSK: no pitting edema, no clubbing Neuro: non-focal, moving all extremities Psych: cooperative, euthymic mood Plan: No changes of the documented plan
[2020-09-11 18:02] LABS: Glucose,Whole Blood 210 mg/dL (75-99)
[2020-09-11] MEDS: SYMBICORT 160-4.5 MCG INHALER INHALATION SCH (20:11)
[2020-09-11] MEDS: ZOLPIDEM 5 MG TAB PO PRN (21:31)
[2020-09-12] MEDS: LEVOTHYROXINE 100 MCG TAB PO SCH (05:49)
[2020-09-12] MEDS: methylPREDNISolone SOD SUCCI 125 MG/2 ML VIAL IV SCH (05:50)
[2020-09-12] MEDS: ALBUTEROL HFA INHALER INHALATION SCH ×4 (07:32→21:24)
[2020-09-12] MEDS: SYMBICORT 160-4.5 MCG INHALER INHALATION SCH ×2 (07:34→21:24)
[2020-09-12] MEDS: SERTRALINE 100 MG TAB PO SCH (08:29)
[2020-09-12] MEDS: PRIMIDONE 50 MG TAB PO SCH (08:29)
[2020-09-12] MEDS: atenoloL 50 MG TAB PO SCH (08:29)
[2020-09-12] MEDS: LITHIUM CARBONATE 300 MG CAP PO SCH (08:29)
[2020-09-12] MEDS: ATORVASTATIN 20 MG TAB PO SCH (08:29)
[2020-09-12] MEDS ORDERED: LORazepam 0.5 MG TAB PO STA (09:24)
--- NOTE | 2020-09-12 11:41 | P.PN ---
Subjective Progress Note Date: 09/12/20 -year-old female patient with known history of COPD and previous history of non- small cell lung cancer who came into the emergency department because of worsening shortness of breath. She was getting more hypoxic and the patient had use of oxygen as the patient has noticed some exertional oxygen desaturation. She denied having any chest pain. No significant cough sputum production chest tightness or wheezing. For that reason, the patient came into the hospital. Note that the patient on her most recent CAT scan of the chest that was done as follow-up for her small cell lung cancer, she was found to have a moderate-sized right-sided pleural effusion. I performed a thoracentesis and removed approximately 7 50 mL of pleural fluid from the right lung. There was no ev idence of malignancy on the fluid cytology. I think the fluid itself was a transudate. At that point, there was a questionable filling defect in the right lower lobe pulmonary artery based on the CAT scan findings and I put the patient on anticoagulation. She is still on Eliquis for now. As far as her small cell lung cancer, this was a limited stage and the patient was treated with accommodation chemoradiation therapy without any major toxicity. The patient was being monitored by PET scan that was initially done in April 2017 and later on on 11/01/2017 and later on on 06/13/2018 that showed no evidence of any disease recurrence. The follow-up PET scan from 02/06/2019 showed a small right-sided pleural effusion. The patient had a follow-up PET scan on 08/20/2019 that showed no evidence of any malignancy. There was stable right- sided pleural effusion. No evidence of any activity or uptake within the lungs or the rest of the body and the patient was assumed to be in remission. A subsequent CAT scan of the chest that was done on 03/29/2020 showed no evidence of any tumor recurrence and disease was still in remission. As far as her COPD, her FEV1 is in the order of 74% of predicted. She does have a remote history of DVT and she completed anticoagulation in the past and based on a questionable filling defect in the right lower lobe pulmonary artery branch, the patient was restarted back on anticoagulants. On today's evaluation of 09/12/2020 I'm seeing the patient for a follow-up. She is slightly improved compared to yesterday.. Ultrasound of the chest was done yesterday and a 10 cm pocket was identified in the right lung and this will be drained via thoracentesis. The patient was given IV Solu-Medrol. The patient became a bit anxious and she was given a dose of Ativan today. Also, the patient had an echocardiogram that showed no acute abnormalities. Pro- calcitonin level is low. He has been complaining of abdominal distention and she is seeing Dr. Dalton have recommended a CAT scan of the abdomen along with a CAT scan of chest. I'm going to obtain a CAT scan of the abdomen and pelvis today. Objective - Vital Signs Vital signs: Vital Signs Temp 98.2 F 09/12/20 07:33 Pulse 82 09/12/20 07:33 Resp 20 09/12/20 08:00 BP 134/84 09/12/20 07:33 Pulse Ox 93 L 09/12/20 07:33 Intake & Output 09/11/20 09/12/20 09/12/20 18:59 06:59 18:59 Other: # Voids 3 2 - Exam COPD: General Appearance no diaphoresis, dyspnea, pallor, or respiratory distress and speech not interrupted by breaths, not cachectic, well nourished, and appears well. HEENT no pursed lip breathing, jugular venous distention, mucous membrane cyanosis, or perioral cyanosis and mallampati classification: class 1 and Mallampati Classification: Class 3. Chest no retractions, rhonchi, hyperinflation, barrel chest, sternocleidomastoid muscle contractions, supraclavicular retractions, intercostal retractions, or decreased air movement; prolonged expiratory wheezing and decreased air movement; and (normal) adventitious sounds: rales / crackles: bilaterally: midlung hu; scars related to shingles over the left posterior chest area. Heart no right ventricular heave, distant heart sounds, or s3 gallop and (normal) jugular vein and vein: jugular venous distention: by 0cm. GI bowel sounds: hyperactive (borborygmi) and diminished or absent. Extremities no cyanosis, clubbing, or edema. Neurologic no somnolence, confusion, or decreased mental status. Assisstive Devices: ambulates with no assitive devices. Gait and Mobility: gait WNL and full weight bearing. - Labs CBC & Chem 7: 09/10/20 17:09 09/10/20 17:09 Labs: Abnormal Lab Results - Last 24 Hours (Table) 09/11/20 Range/Units 18:00 POC Glucose (mg/dL) 210 H (75-99) mg/dL Assessment and Plan Plan: 1 shortness of breath which is essentially multifactorial. The patient developed worsening shortness of breath. Nevertheless the CAT scan of the chest shows a rather stable right-sided pleural effusion. No evidence of any pulmonary embolism and the patient has been already had anticoagulants and she is receiving Eliquis. She does have COPD which may be exacerbating. There is small cell lung cancer and essentially stable anticoagulation. 2 small cell lung cancer. Limited stage small cell lung cancer treated by chemoradiation therapy without any major side effect or toxicity. . The follow- up PET scan that has been done since her treatment from April 2017 and later on from 11/01/2017 and later on from 06/13/2018 showed no evidence of any disease recurrence and the patient continues to be in disease remission following her chemoradiation therapy. the follow-up PET scan that was done on 02/06/2019 showed development of a small right-sided pleural effusion. Patient had a follow-up PET scan on 08/20/2019 that showed no evidence of any malignancy. There is decrease in the size of the right-sided pleural effusion. No evidence of any activity or uptake within the lungs or the rest of the body and the patient remains in remission. She is reassured. A subsequent CAT scan of the chest that was done in 03/29/2020 showed no evidence of any tumor recurrence and the patient continues to be in remission and she was reassured about that. 3 COPD with an FEV1 of 74% of predicted 4 chronic hypoxic respiratory failure 5 history of a right upper extremity DVT 6 history of compression fracture of the thoracic spine at the level of T4 7 history of hydronephrosis requiring a ureteral stent placement 8 depression 9 hypothyroidism 10 hyperlipidemia 11 hypertension 12 suspected pulmonary embolism based on her recent CAT scan of the chest that showed subsegmental filling defect and right lower lobe pulmonary artery branch. Plan Echocardiogram was within normal limits The pro calcitonin level was also within normal limits we'll proceed with another diagnostic and therapeutic thoracentesis of the right lung We'll obtain a CAT scan of the abdomen and pelvis as part of investigation for abdominal distention special that she has history of small cell lung cancer This continued IV Solu Medrol start the patient prednisone burst taper starting with 30 mg on a daily basis We'll continue to follow
[2020-09-12] MEDS: IOPAMIDOL CONTRAST (ORAL USE) VIAL PO PRN ×2 (12:14→13:25)
--- NOTE | 2020-09-12 12:32 | P.PN ---
<Saúl Olson - Last Filed: 09/12/20 12:15> Subjective Progress Note Date: 09/12/20 Principal diagnosis: Acute on chronic respiratory failure with hypoxia Hospital course: Patient is a 80-year-old female with a past medical history of hypertension, hypothyroidism, COPD, left lung carcinoma going through chemotherapy and radiation completed in 2017 and currently in remission follows with oncologist Dr. Mary, history of DVT on Eliquis, history of tobacco use quitting 12 years ago, and recent pleural effusion requiring thoracentesis on 08/09/[address] Lucio in which 700 mL of turbid colored fluid was removed and patient was started on home O2 at that time. Patient reports after the thoracentesis her breathing was much improved and she was doing well on 2 L home oxygen. She states that she did not start having increased shortness of breath until last Friday (09/04/20). Patient states the shortness of breath was accompanied by a coarse cough and seemed to progressively worsen over the past week and her oxygen was no longer helping her, so she reports she called Dr. Lucio's office and was instructed to go straight to the hospital. Upon arrival to the hospital patient was found to initially be hypoxic at 90% on 2 L O2. X-ray completed which revealed an increasing right pleural effusion and right basilar atelectasis. CTA was negative for PE but confirming moderate right pleural effusion with increased infiltrate and atelectasis adjacent to the pleural fluid. EKG revealed normal sinus rhythm at 87 beats minute with no noted T-wave or ST abnormalities. Labs obtained with CBC, BMP, liver profile, pro-calcitonin and troponin all unremarkable. ProBNP 294. [place] level slightly subtherapeutic at 0.4. Covid PCR Negative. Patient admitted under our services for acute on chronic respiratory failure with hypoxia with consult to pulmonology secondary to recurrent pleural effusion. Ultrasound of chest completed revealing 10.2 cm right pleural effusion pocket. Echocardiogram revealed moderate LVH with normal EF between 55 and 60% accompanied by moderate pulmonary hypertension. Patient being treated with steroids, SoluMedrol 60 mg every 6 hours, and awaiting thoracentesis. Physical exam: Patient is seen and fully evaluated at the bedside. She reports that she was unable to sleep last night and feels extremely anxious. She was started on steroids yesterday. Order was placed for a small dose of oral Ativan to assist in controlling patient's anxiety. Patient's Eliquis was held and she is awaiting to have thoracentesis completed by Dr. Lucio. Patient denies having any headache, lightheadedness, dizziness, changes in her vision or hearing, chest pain or palpitations, nausea, vomiting, or experiencing any numbness/ti ngling/weakness in extremities. She remains on 2 L O2 via nasal cannula with respirations even, regular, and unlabored. Patient is baseline 2 L home O2. General: non toxic, no distress, appears at stated age Derm: warm, dry Head: atraumatic, normocephalic, symmetric Eyes: No lid lag, anicteric sclera Mouth: no lip lesion, mucus membranes moist Cardiovascular: S1S2 reg, no murmur, positive posterior tibial pulses bilaterally, cap refill less than 2 seconds Lungs: Respirations even, regular, and unlabored on 2 L O2 via nasal cannula. No accessory muscle use. Upon auscultation of lungs: Right lung slightly diminished, improved airflow from yesterday. No wheezing, rales, or rhonchi noted. Abdominal: soft distended, nontender to palpation, no guarding, no appreciable organomegaly Ext: No gross muscle atrophy, no edema, no contractures Neuro: GCS 15, speech clear, no focal neuro deficits Psych: Alert, oriented, pleasant and appropriate affect Plan of care: Acute on chronic respiratory failure with hypoxia secondary to COPD and recurrent pleural effusion -Chest x-ray revealed an increasing right pleural effusion and right basilar atelectasis. -CTA was negative for PE but confirming moderate right pleural effusion with increased infiltrate and atelectasis adjacent to the pleural fluid. -Ultrasound revealed 10.2 cm right pleural effusion pocket -Echocardiogram revealing moderate LVH with a normal EF between 55 and 60% accompanied by moderate pulmonary hypertension. -Titrate oxygen as needed to maintain SpO2 equal chest greater than 92%, patient on 2 L home O2. -Pulmonology following, holding patient's Eliquis with plan for thoracentesis. Appreciate further recommendations.. -Bronchodilator protocol with PRN DuoNeb as needed for wheezing or shortness of breath -Continue Solu-Medrol 60 mg every 6 hours as directed by pulmonology, day 2 of steroids -Continue daily Symbicort. -Incentive spirometry. History of the DVT -Hold Eliquis pending thoracentesis, resume once okayed by Dr. Lucio with pulmonology. . Hypertension -Continue daily medication regimen with atenolol 50 mg daily. Hyperlipidemia -Continue daily medication regimen with atorvastatin 20 mg daily. -Heart healthy diet. Hypothyroidism -Continue daily levothyroxine 100 g daily. The patient is admitted with an anticipated greater than 2 midnight stay for evaluation of acute on chronic respiratory failure with hypoxia secondary to COPD and recurrent pleural effusion. CODE STATUS: Full code DVT prophylaxis: SCDMaisha reyesquscotty being held for thoracentesis Discussed with: Patient and RN Anticipated discharge date: clinical course to determine. Anticipated discharge place: Home A total of 45 minutes was spent on the care of this complex patient more than 50% of the time was spent in counseling and care coordination. Objective - Vital Signs Vital signs: Vital Signs Temp 98.2 F 09/12/20 07:33 Pulse 82 09/12/20 07:33 Resp 20 09/12/20 08:00 BP 134/84 09/12/20 07:33 Pulse Ox 93 L 09/12/20 07:33 Intake & Output 09/11/20 09/12/20 09/12/20 18:59 06:59 18:59 Other: # Voids 3 2 - Labs CBC & Chem 7: 09/10/20 17:09 09/10/20 17:09 Labs: Abnormal Lab Results - Last 24 Hours (Table) 09/11/20 Range/Units 18:00 POC Glucose (mg/dL) 210 H (75-99) mg/dL <Jose Yen - Last Filed: 09/12/20 13:41> Objective - Vital Signs Vital signs: Vital Signs Temp 98.2 F 09/12/20 07:33 Pulse 82 09/12/20 07:33 Resp 20 09/12/20 08:00 BP 134/84 09/12/20 07:33 Pulse Ox 93 L 09/12/20 07:33 Intake & Output 09/11/20 09/12/20 09/12/20 18:59 06:59 18:59 Other: # Voids 3 2 - Labs CBC & Chem 7: 09/10/20 17:09 09/10/20 17:09 Labs: Abnormal Lab Results - Last 24 Hours (Table) 09/11/20 Range/Units 18:00 POC Glucose (mg/dL) 210 H (75-99) mg/dL Assessment and Plan Assessment: Patient seen and evaluated by STACEY, the original author of this note. I am in agreement with the subjective, physical exam, and assessment and plan as documented with No changes to documented plan
--- NOTE | 2020-09-12 12:46 | XR ---
EXAMINATION TYPE: XR chest 1V portable DATE OF EXAM: 09/12/2020 COMPARISON: Chest x-ray 09/10/2020 HISTORY: Status post right thoracentesis TECHNIQUE: Single frontal view of the chest is obtained. FINDINGS: There is interval improved visualization of the right hemidiaphragm. No evident sizable pn eumothorax, patient is rotated. IMPRESSION: No evident complication status post right thoracentesis
[2020-09-12] MEDS: predniSONE 10 MG TAB PO SCH (14:24)
--- NOTE | 2020-09-12 14:44 | CT ---
EXAMINATION TYPE: CT abdomen pelvis w con DATE OF EXAM: 09/12/2020 COMPARISON: CT 09/10/2020 HISTORY: abdominal distension CT DLP: 840.7 mGycm Automated exposure control for dose reduction was used. TECHNIQUE: Helical acquisition of images from the lung bases through the pelvis have been completed. CONTRAST: Performed with Oral Contrast and with IV Contrast, patient injected with 100 mL of Isovue 300. FINDINGS: There are small locules of air present within the region of the epicardial fat on the right LUNG BASES: Interval resolution in patient's right pleural effusion.. AORTA: No significant abnormality is appreciated. LIVER/GB: No significant abnormality is appreciated. PANCREAS: No significant abnormality is seen. SPLEEN: No significant abnormality is seen. ADRENALS: No significant abnormality is seen. KIDNEYS: Nonobstructive calculus present in the lower pole calyx the left kidney measures approximate ly 6 to 7 mm, extrarenal pelvis suspected on the left, cortical cyst present at the upper pole left k idney measures 14 mm. REPRODUCTIVE ORGANS: Uterus is absent, small cyst associated with the right ovary and axial image 50 or measures 13 mm BOWEL: No significant abnormality is seen. FREE AIR: No Free Air visible. ASCITES: None visible. PELVIC ADENOPATHY: None visualized. RETROPERITONEAL ADENOPATHY: No Retroperitoneal Adenopathy visible. URINARY BLADDER: No significant abnormality is seen. OSSEOUS STRUCTURES: Degenerative disc changes and facet arthropathy noted especially in the lower fabiano mbar spine.. IMPRESSION: THERE IS A SMALL AMOUNT OF AIR NOTED IN THE MEDIASTINUM, EPICARDIAL FAT ON THE RIGHT. REPORT RELAYED TELEPHONICALLY TO THE REFERRING CLINICIAN. ALL NONOBSTRUCTIVE LEFT NEPHROLITHIASIS. POSTOP CHANGES AN D ADDITIONAL FINDINGS ABOVE.
[2020-09-12 15:36] LABS: Appearance,BF Hazy; Color,BF Yellow; Nucleated Cells, Body Fluid 785 /uL
[2020-09-12 15:37] LABS: RBC, Body Fluid 6940 /uL
[2020-09-12 16:04] LABS: Mononuclear WBC,Body Fluid 95 %; Polynuclear WBC,Body Fluid 5 %; Total Cells Counted,Body Fluid 100
[2020-09-12 21:27] LABS: Glucose, BF Source Pleural Fluid; Glucose, Body Fluid 133 mg/dL; LDH, Body Fluid Source Pleural Fluid; Total Protein, Body Fluid 3200 mg/dL
[2020-09-12] MEDS: ZOLPIDEM 5 MG TAB PO PRN (22:46)
[2020-09-13] MEDS: LEVOTHYROXINE 100 MCG TAB PO SCH (05:31)
[2020-09-13] MEDS: SERTRALINE 100 MG TAB PO SCH (08:49)
[2020-09-13] MEDS: ATORVASTATIN 20 MG TAB PO SCH (08:49)
[2020-09-13] MEDS: atenoloL 50 MG TAB PO SCH (08:49)
[2020-09-13] MEDS: LITHIUM CARBONATE 300 MG CAP PO SCH (08:50)
[2020-09-13] MEDS: PRIMIDONE 50 MG TAB PO SCH (08:50)
[2020-09-13] MEDS: predniSONE 10 MG TAB PO SCH (08:50)
[2020-09-13] MEDS: SYMBICORT 160-4.5 MCG INHALER INHALATION SCH (09:15)
[2020-09-13] MEDS: ALBUTEROL HFA INHALER INHALATION SCH ×2 (09:16→11:57)
[2020-09-13 09:25] VITALS: BP 151/82; PULSE 71; RESP 16; TEMP 98.1
[2020-09-13] MEDS ORDERED: ALPRAZolam 0.25 MG TAB PO PRN (10:18)
[2020-09-13] MEDS ORDERED: APIXABAN 5 MG TAB PO SCH (11:30)
--- NOTE | 2020-09-13 12:22 | P.DS ---
Providers Date of admission: 09/10/20 19:44 Expected date of discharge: 09/13/20 Attending physician: Elizabeth Butler MD Consults: 09/10/20 22:37 Consult Physician Routine Consulting Provider: Chris Lucio Consult Reason/Comments: recurrent pleural effusion Do you want consulting provider notified?: Yes, Notify in am Primary care physician: DION Jose Hospital Course: This is a 80-year-old female with a complex past medical history noted below significant for underlying non-small cell lung cancer who presented to the emergency room with shortness of breath. Patient was evaluated in the ER and admitted to the hospital for further management of her medical problems noted below. 1. Worsening shortness of breath, most likely multifactorial secondary to r easons noted below. Improved during this admission. Patient had a CT angiogram in the ER that was negative for PE. Chest x-ray showed right-sided pleural effusion but no other findings. Echocardiogram showed preserved ejection fraction with no significant valvular abnormalities 2. Right-sided pleural effusion, status post thoracentesis during this admission. Cytology pending. X-ray postthoracentesis showed no acute findings 3. Underlying small cell lung cancer, limited stage. Status post chemoradiation therapy 3 years ago. Most recent PET scan in August 2019 was no evidence of recurrence. Follow-up with oncology as directed. 4. Underlying COPD, with no evidence of exacerbation at this time. Continue bronchodilators and inhaled steroids per home regimen 5. Chronic hypoxic respiratory failure on home O2 6. History of PE on anticoagulation with Eliquis 7. Chronic medical problems: Hyperlipidemia, hypertension, hypothyroidism, depression, history of compression fracture of the thoracic spine On the day of discharge, patient was doing a lot better. She was cleared by pulmonology for discharge home. She will follow up as directed. Physical exam: General: The patient is awake and alert, in no distress Eye: there is normal conjunctiva bilaterally. Neck: The neck is supple, there is no JVD. Cardiovascular: Normal S1-S2, no S3-S4, no murmurs. Respiratory: Lungs clear to auscultation bilaterally Gastrointestinal: Abdomen is soft, nontender Musculoskeletal: There is no pedal edema. Neurological:. Speech is normal. Skin: Skin is warm and dry Patient Condition at Discharge: Poor Plan - Discharge Summary Discharge Rx Participant: No New Discharge Prescriptions: Continue Atorvastatin [Lipitor] 20 mg PO DAILY Levothyroxine Sodium [Synthroid] 100 mcg PO DAILY atenoloL [Tenormin] 50 mg PO DAILY Sertraline [Zoloft] 100 mg PO DAILY [place] Carbonate 300 mg PO DAILY Budesonide-Formot 160-4.5 Mcg [Symbicort 160-4.5 Mcg Inhaler] 2 puff INHALATION RT-BID Albuterol Nebulized [Ventolin Nebulized] 2.5 mg INHALATION RT-QID Vitamin E Acetate [Vitamin E] 200 unit PO DAILY Primidone [Mysoline] 50 mg PO DAILY Cholecalciferol [Vitamin D3 (25 Mcg = 1000 Iu)] 50 mcg PO BID Apixaban [Eliquis] 5 mg PO BID Albuterol Sulfate [Ventolin HFA] 2 puff INHALATION RT-Q4H PRN PRN Reason: Shortness Of Breath Discharge Medication List Atorvastatin [Lipitor] 20 mg PO DAILY 02/07/16 [History] Levothyroxine Sodium [Synthroid] 100 mcg PO DAILY 02/07/16 [History] [place] Carbonate 300 mg PO DAILY 02/07/16 [History] Sertraline [Zoloft] 100 mg PO DAILY 02/07/16 [History] atenoloL [Tenormin] 50 mg PO DAILY 02/07/16 [History] Albuterol Nebulized [Ventolin Nebulized] 2.5 mg INHALATION RT-QID 06/03/17 [History] Budesonide-Formot 160-4.5 Mcg [Symbicort 160-4.5 Mcg Inhaler] 2 puff INHALATION RT-BID 06/03/17 [History] Albuterol Sulfate [Ventolin HFA] 2 puff INHALATION RT-Q4H PRN 09/10/20 [History] Apixaban [Eliquis] 5 mg PO BID 09/10/20 [History] Cholecalciferol [Vitamin D3 (25 Mcg = 1000 Iu)] 50 mcg PO BID 09/10/20 [History] Primidone [Mysoline] 50 mg PO DAILY 09/10/20 [History] Vitamin E Acetate [Vitamin E] 200 unit PO DAILY 09/10/20 [History] Follow up Appointment(s)/Referral(s): Reina Clark NPC [Primary Care Provider] - 1-2 days Chris Lucio MD [STAFF PHYSICIAN] - 2 Weeks Patient Instructions/Handouts: Hypoxia (GEN) Discharge Disposition: HOME SELF-CARE
--- NOTE | 2020-09-13 13:27 | P.PN ---
Subjective Progress Note Date: 09/13/20 -year-old female patient with known history of COPD and previous history of non- small cell lung cancer who came into the emergency department because of worsening shortness of breath. She was getting more hypoxic and the patient had use of oxygen as the patient has noticed some exertional oxygen desaturation. She denied having any chest pain. No significant cough sputum production chest tightness or wheezing. For that reason, the patient came into the hospital. Note that the patient on her most recent CAT scan of the chest that was done as follow-up for her small cell lung cancer, she was found to have a moderate-sized right-sided pleural effusion. I performed a thoracentesis and removed approximately 7 50 mL of pleural fluid from the right lung. There was no ev idence of malignancy on the fluid cytology. I think the fluid itself was a transudate. At that point, there was a questionable filling defect in the right lower lobe pulmonary artery based on the CAT scan findings and I put the patient on anticoagulation. She is still on Eliquis for now. As far as her small cell lung cancer, this was a limited stage and the patient was treated with accommodation chemoradiation therapy without any major toxicity. The patient was being monitored by PET scan that was initially done in April 2017 and later on on 11/01/2017 and later on on 06/13/2018 that showed no evidence of any disease recurrence. The follow-up PET scan from 02/06/2019 showed a small right-sided pleural effusion. The patient had a follow-up PET scan on 08/20/2019 that showed no evidence of any malignancy. There was stable right- sided pleural effusion. No evidence of any activity or uptake within the lungs or the rest of the body and the patient was assumed to be in remission. A subsequent CAT scan of the chest that was done on 03/29/2020 showed no evidence of any tumor recurrence and disease was still in remission. As far as her COPD, her FEV1 is in the order of 74% of predicted. She does have a remote history of DVT and she completed anticoagulation in the past and based on a questionable filling defect in the right lower lobe pulmonary artery branch, the patient was restarted back on anticoagulants. On today's evaluation of 09/12/2020 I'm seeing the patient for a follow-up. She is slightly improved compared to yesterday.. Ultrasound of the chest was done yesterday and a 10 cm pocket was identified in the right lung and this will be drained via thoracentesis. The patient was given IV Solu-Medrol. The patient became a bit anxious and she was given a dose of Ativan today. Also, the patient had an echocardiogram that showed no acute abnormalities. Pro- calcitonin level is low. He has been complaining of abdominal distention and she is seeing Dr. Dalton have recommended a CAT scan of the abdomen along with a CAT scan of chest. I'm going to obtain a CAT scan of the abdomen and pelvis today. 09/13/2020 I'm seeing the patient for a follow-up. The patient is doing well. She is a bit anxious because of systemic steroids. I discontinued IV Solu- Medrol. I performed a thoracentesis yesterday and total of 450 mL of pleural fluid was aspirated from the right lung. No complications. CAT scan of the abdomen showed a limited amount of air around the pericardium. Otherwise CAT scan of the abdomen was negative. The pleural effusion was drained in its entirety. The LDH in the pleural fluid was 142 and the protein was 3.2 indicating the possibility of a transudate. The fluid cytology still pending for now. The patient has no other complaints. Her pulse ox on 2 L on 97%. Sr. desaturate with activity probably related to her underlying COPD. I reviewed the CAT scan of the abdomen and there is a small amount of air noted in the mediastinum/epicardial fat on the right. Note that her procedure was done on the right. I'm not absolutely sure whether this is a complication related to the procedure itself. I do not see any other abnormalities within the CAT scan of the abdomen. The patient is stable for now. She is hemodynamically stable. She does have evidence of nonobstructive left nephrolithiasis. Objective - Vital Signs Vital signs: Vital Signs Temp 98.1 F 09/13/20 08:00 Pulse 71 09/13/20 08:00 Resp 16 09/13/20 08:00 BP 151/82 09/13/20 08:00 Pulse Ox 96 09/13/20 08:00 Intake & Output 09/12/20 09/13/20 09/13/20 18:59 06:59 18:59 Other: Voiding Method Toilet # Voids 3 1 # Bowel Movements 1 - Exam COPD: General Appearance no diaphoresis, dyspnea, pallor, or respiratory distress and speech not interrupted by breaths, not cachectic, well nourished, and appears well. HEENT no pursed lip breathing, jugular venous distention, mucous membrane cyanosis, or perioral cyanosis and mallampati classification: class 1 and Mallampati Classification: Class 3. Chest no retractions, rhonchi, hyperinflation, barrel chest, sternocleidomastoid muscle contractions, supracla vicular retractions, intercostal retractions, or decreased air movement; prolonged expiratory wheezing and decreased air movement; and (normal) adventitious sounds: rales / crackles: bilaterally: midlung hu; scars related to shingles over the left posterior chest area. Heart no right ventricular heave, distant heart sounds, or s3 gallop and (normal) jugular vein and vein: jugular venous distention: by 0cm. GI bowel sounds: hyperactive (borborygmi) and diminished or absent. Extremities no cyanosis, clubbing, or edema. Neurologic no somnolence, confusion, or decreased mental status. Assissti ve Devices: ambulates with no assitive devices. Gait and Mobility: gait WNL and full weight bearing. - Labs CBC & Chem 7: 09/10/20 17:09 09/10/20 17:09 Labs: Microbiology - Last 24 Hours (Table) 09/12/20 12:00 Gram Stain - Preliminary Pleural Fluid Body Fluid Culture - Preliminary 09/12/20 12:00 Anaerobic Culture - Preliminary Pleural Fluid 09/12/20 12:00 Acid Fast Bacilli Culture - Preliminary Pleural Fluid 09/12/20 12:00 Fungal Culture - Preliminary Pleural Fluid Assessment and Plan Plan: 1 shortness of breath which is essentially multifactorial. The shortness of breath is predominantly related to COPD. The right-sided pleural effusion has been drained for the second time and the fluid is probably a transudate. CAT scan of the abdomen is essentially negative. Echocardiogram is within normal limits. The patient is requiring 2 L about 2 by nasal cannula. 2 small cell lung cancer. Limited stage small cell lung cancer treated by chemoradiation therapy without any major side effect or toxicity. . The follow- up PET scan that has been done since her treatment from April 2017 and later on from 11/01/2017 and later on from 06/13/2018 showed no evidence of any disease recurrence and the patient continues to be in disease remission fo llowing her chemoradiation therapy. the follow-up PET scan that was done on 02/06/2019 showed development of a small right-sided pleural effusion. Patient had a follow-up PET scan on 08/20/2019 that showed no evidence of any malignancy. There is decrease in the size of the right-sided pleural effusion. No evidence of any activity or uptake within the lungs or the rest of the body and the patient remains in remission. She is reassured. A subsequent CAT scan of the chest that was done in 03/29/2020 showed no evidence of any tumor recurrence and the patient continues to be in remission and she was reassured about that. 3 COPD with an FEV1 of 74% of predicted 4 chronic hypoxic respiratory failure 5 history of a right upper extremity DVT 6 history of compression fracture of the thoracic spine at the level of T4 7 history of hydronephrosis requiring a ureteral stent placement 8 depression 9 hypothyroidism 10 hyperlipidemia 11 hypertension 12 suspected pulmonary embolism based on her recent CAT scan of the chest that showed subsegmental filling defect and right lower lobe pulmonary artery branch. Plan Echocardiogram was within normal limits The pro calcitonin level was also within normal lithoracentesis was done without a total of 450 mL of pleural fluid was aspirated. Fluid cytology still pending. eCAT scan of the abdomen and pelvis was also noted This continued IV Solu-Medrol The patient can be discharged home on a routine bronchodilators and Symbicort and Spiriva and oxygen therapy at 2 L per minute nasal cannula Follow-up with me in the office Follow-up with oncology.
--- NOTE | 2020-09-14 10:30 | CDI ---
Documentation Clarification Form Date: 09/14/2020 10:27:00 AM From: Tabatha Coulter CCS Phone: If you have a question about this query, please contact Kenya Schwab Operating Room Surgical Technologist at [phone] between 8am and 5pm Admit Date: 09/10/2020 07:44:00 PM Patient Name: Margaret Gregg Visit Number: [id number] Discharge Date: 09/13/2020 02:47:00 PM ATTENTION: The Clinical Documentation Specialists (CDI) and [facility] Coding Staff appreciate your assistance in clarifying documentation. Please respond to the clarification below the line at the bottom and electronically sign. The CDI & [facility] Coding staff will review the response and follow-up if needed. Please note: Queries are made part of the Legal Health Record. If you have any questions, please contact the author of this message via ITS. Dr. Elizabeth Butler Conflicting documentation has been found in the medical record: 09/12 PN and 09/11 Consult document: She does have COPD which may be exacerbating. PNs document: Acute on chronic respiratory failure with hypoxia secondary to COPD and recurrent pleural effusion H&P documents: COPD currently compensated DS documents: Underlying COPD, with no evidence of exacerbation at this time History/Risk Factors: Acute/Chronic Resp Failure, COPD on 2L Home O2, Pleural Effusion Clinical Indicators: Shortness of breath Vitals: BP 176/79, RR 18, AR 97, O2 Sat 90 Treatment: Solumedrol 60 mg IV, MDI administration, O2 2 lpm Nasal Cannula In your opinion, what is the most clinically appropriate diagnosis for this patient? COPD with exacerbation COPD not exacerbated Other explanation of clinical findings Unable to determine (no explanation for clinical findings) COPD not exacerbated MTDD
== END 2020-09-13 14:47 | disposition home or self-care (01) | DRG 186 ==
LOC: EC 15:52 → 4SSUR 19:44
PROVIDERS: ADMIT Internal Medicine; ATTEND Internal Medicine
PROC: 0W993ZZ Drainage of Right Pleural Cavity, Percutaneous Approach (ICD-10-PCS; principal; 2020-09-12)
DX: J90 Pleural effusion, not elsewhere classified (principal); J96.21 Acute and chronic respiratory failure with hypoxia; I48.92 Unspecified atrial flutter; J98.11 Atelectasis; I27.20 Pulmonary hypertension, unspecified; Z99.81 Dependence on supplemental oxygen; J44.9 Chronic obstructive pulmonary disease, unspecified; Z20.822 Contact with and (suspected) exposure to COVID-19; E03.9 Hypothyroidism, unspecified; E78.5 Hyperlipidemia, unspecified; M19.90 Unspecified osteoarthritis, unspecified site; F32.9 Major depressive disorder, single episode, unspecified; F41.9 Anxiety disorder, unspecified; I10 Essential (primary) hypertension; N20.0 Calculus of kidney; G43.909 Migraine, unspecified, not intractable, without status migrainosus; Z79.01 Long term (current) use of anticoagulants; Z79.890 Hormone replacement therapy; Z79.51 Long term (current) use of inhaled steroids; Z79.899 Other long term (current) drug therapy; Z85.118 Personal history of other malignant neoplasm of bronchus and lung; Z92.21 Personal history of antineoplastic chemotherapy; Z92.3 Personal history of irradiation; Z86.718 Personal history of other venous thrombosis and embolism; Z87.01 Personal history of pneumonia (recurrent); Z90.49 Acquired absence of other specified parts of digestive tract; Z90.710 Acquired absence of both cervix and uterus; Z98.890 Other specified postprocedural states; Z87.891 Personal history of nicotine dependence; Z87.828 Personal history of other (healed) physical injury and trauma; Z87.311 Personal history of (healed) other pathological fracture; Z87.448 Personal history of other diseases of urinary system; Z86.711 Personal history of pulmonary embolism; Z91.040 Latex allergy status; Z80.1 Family history of malignant neoplasm of trachea, bronchus and lung
CPT/HCPCS: 36415; 71045; 71046; 71275; 74177; 76604; 80053; 80178; 82945; 83615; 83735; 83880; 84145; 84157; 84484; 85025; 85610; 85730; 87070; 87075; 87102; 87116; 87205; 87206; 87252; 87496; 87498; 87502; 87529; 87634; 87635; 87798; 88108; 88305; 88341; 88342; 89050; 93005; 93306; 94640; 96365; 99285

== ENCOUNTER 2020-09-22 09:27 | Emergency (ER) | payer MEDICARE, BC ==
[2020-09-22 09:35] VITALS: TEMP 98.3
--- NOTE | 2020-09-22 10:08 | ED ---
General Adult HPI - General Chief complaint: Psychiatric Symptoms Stated complaint: suicidal Time Seen by Provider: 09/22/20 09:35 Source: patient, RN notes reviewed, old records reviewed Mode of arrival: wheelchair Limitations: no limitations - History of Present Illness Initial comments: This is a 80-year-old female presents emergency Department complaining of depression and suicidal ideations. Patient denies any plan. Patient states it's been ongoing ever since she was on steroids a few weeks ago. Patient states she's been off them about 2 weeks and she feels like she can remember back to her baseline since. Patient states the depression seems to be growing and she was recently had her Zoloft recently increased but only started that on Friday. Patient denies any physical complaints today. Patient denies headache patient denies numbness weakness. Patient denies chest pain difficulty breathing first breath per patient any recent fever chills or cough per patient's vomiting patient has nausea vomiting diarrhea. - Related Data Home Medications Medication Instructions Recorded Confirmed Atorvastatin [Lipitor] 20 mg PO DAILY 02/07/16 09/22/20 Levothyroxine Sodium [Synthroid] 100 mcg PO DAILY 02/07/16 09/22/20 [place] Carbonate 300 mg PO DAILY 02/07/16 09/22/20 Sertraline [Zoloft] 150 mg PO DAILY 02/07/16 09/22/20 atenoloL [Tenormin] 50 mg PO DAILY 02/07/16 09/22/20 Albuterol Nebulized [Ventolin 2.5 mg INHALATION RT-QID 06/03/17 09/22/20 Nebulized] Budesonide-Formot 160-4.5 Mcg 2 puff INHALATION RT-BID 06/03/17 09/22/20 [Symbicort 160-4.5 Mcg Inhaler] Albuterol Sulfate [Ventolin HFA] 2 puff INHALATION RT-Q4H PRN 09/10/20 09/22/20 Apixaban [Eliquis] 5 mg PO BID 09/10/20 09/22/20 Cholecalciferol [Vitamin D3 (25 50 mcg PO BID 09/10/20 09/22/20 Mcg = 1000 Iu)] Primidone [Mysoline] 50 mg PO DAILY 09/10/20 09/22/20 Vitamin E Acetate [Vitamin E] 200 unit PO DAILY 09/10/20 09/22/20 ALPRAZolam [Xanax] 0.5 mg PO TID 09/22/20 09/22/20 Allergies Allergy/AdvReac Type Severity Reaction Status Date / Time latex Allergy Swelling Verified 09/22/20 10:51 Review of Systems ROS Statement: Those systems with pertinent positive or pertinent negative responses have been documented in the HPI. ROS Other: All systems not noted in ROS Statement are negative. Past Medical History Past Medical History: Atrial Flutter, Cancer, COPD, Deep Vein Thrombosis (DVT), Hyperlipidemia, Osteoarthritis (OA), Pneumonia, Thyroid Disorder Additional Past Medical History / Comment(s): Small cell lung cancer, details discussed above treated with chemoradiation therapy, right-sided pleural effusion postthoracentesis, history of difficulty in swallowing with previous aspiration back in 2017 following her cancer treatment, history of right carotid artery disease, history of right upper extremity DVT, hyperlipidemia, hypertension, hypothyroidism, COPD. She also has history of migraines. History of Any Multi-Drug Resistant Organisms: None Reported Past Surgical History: Adenoidectomy, Appendectomy, Hysterectomy, Tonsillectomy Additional Past Surgical History / Comment(s): colonoscopy, CORE BX lt breast bx x3 has markers in place. rt hand sx to repair after injury-has limited strength in rt hand, LEFT PYELOPLASTY WITH JJ CATHETER Past Anesthesia/Blood Transfusion Reactions: No Reported Reaction Past Psychological History: Anxiety, Depression Smoking Status: Former smoker Past Alcohol Use History: None Reported Past Drug Use History: None Reported - Past Family History Father Additional Family Medical History / Comment(s): at age 48 from cerebral hemorrage Mother Family Medical History: Cancer Additional Family Medical History / Comment(s): LUNG CANCER Sister(s) Family Medical History: Cancer Additional Family Medical History / Comment(s): LUNG CANCER General Exam - General Exam Comments Initial Comments: GENERAL: Patient is well-developed and well-nourished. Patient is nontoxic and well- hydrated and is in no acute distress. ENT: Neck is soft and supple. No significant lymphadenopathy is noted. Oropharynx is clear. Moist mucous membranes. Neck has full range of motion without eliciting any pain. EYES: The sclera were anicteric and conjunctiva were pink and moist. Extraocular movements were intact and pupils were equal round and reactive to light. Eyelids were unremarkable. PULMONARY: Unlabored respirations. Good breath sounds bilaterally. No audible rales rhonchi or wheezing was noted. CARDIOVASCULAR: There is a regular rate and rhythm without any murmurs gallops or rubs. ABDOMEN: Soft and nontender with normal bowel sounds. SKIN: Skin is clear with no lesions or rashes and otherwise unremarkable. NEUROLOGIC: Patient is alert and oriented x3. Cranial nerves II through XII are grossly intact. Motor and sensory are also intact. Normal speech, volume and content. Symmetrical smile. MUSCULOSKELETAL: Normal extremities with adequate strength and full range of motion. LYMPHATICS: No significant lymphadenopathy is noted PSYCHIATRIC: Patient is having suicidal ideations and indicates she is very depressed. Patient has no plans. Limitations: no limitations Course Vital Signs 09/22/20 09/22/20 09/22/20 09:32 10:35 11:35 Temperature 98.3 F Pulse Rate 74 Respiratory 16 18 18 Rate Blood Pressure 151/75 O2 Sat by Pulse 100 Oximetry 09/22/20 12:35 Temperature Pulse Rate Respiratory 18 Rate Blood Pressure O2 Sat by Pulse Oximetry Medical Decision Making - Medical Decision Making EPS evaluated the patient and and decided the patient be discharged home with follow-up plans patient was in agreement was in agreement. Patient was given a safety plan upon discharge - Lab Data Result diagrams: 09/22/20 10:08 09/22/20 10:08 Lab Results 09/22/20 09/22/20 09/22/20 Range/Units 10:08 10:08 10:15 WBC 8.9 (3.8-10.6) k/uL RBC 5.11 (3.80-5.40) m/uL Hgb 16.4 H (11.4-16.0) gm/dL Hct 49.5 H (34.0-46.0) % MCV 96.9 (80.0-100.0) fL MCH 32.0 (25.0-35.0) pg MCHC 33.0 (31.0-37.0) g/dL RDW 13.0 (11.5-15.5) % Plt Count 165 (150-450) k/uL MPV 6.9 Neutrophils % 89 % Lymphocytes % 4 % Monocytes % 5 % Eosinophils % 1 % Basophils % 0 % Neutrophils # 8.0 H (1.3-7.7) k/uL Lymphocytes # 0.3 L (1.0-4.8) k/uL Monocytes # 0.5 (0-1.0) k/uL Eosinophils # 0.1 (0-0.7) k/uL Basophils # 0.0 (0-0.2) k/uL Sodium 137 (137-145) mmol/L Potassium 4.5 (3.5-5.1) mmol/L Chloride 101 (98-107) mmol/L Carbon Dioxide 28 (22-30) mmol/L Anion Gap 8 mmol/L BUN 10 (7-17) mg/dL Creatinine 0.81 (0.52-1.04) mg/dL Est GFR (CKD-EPI)AfAm 81 (>60 ml/min/1.73 sqM) Est GFR (CKD-EPI)NonAf 70 (>60 ml/min/1.73 sqM) Glucose 116 H (74-99) mg/dL Calcium 10.2 (8.4-10.2) mg/dL Total Bilirubin 0.8 (0.2-1.3) mg/dL AST 24 (14-36) U/L ALT 22 (4-34) U/L Alkaline Phosphatase 96 (38-126) U/L Total Protein 7.5 (6.3-8.2) g/dL Albumin 4.7 (3.5-5.0) g/dL Urine Opiates Screen Not Detected (NotDetected) Ur Oxycodone Screen Not Detected (NotDetected) Urine Methadone Screen Not Detected (NotDetected) Ur Propoxyphene Screen Not Detected (NotDetected) Ur Barbiturates Screen Detected H (NotDetected) U Tricyclic Antidepress Not Detected (NotDetected) Ur Phencyclidine Scrn Not Detected (NotDetected) Ur Amphetamines Screen Not Detected (NotDetected) U Methamphetamines Scrn Not Detected (NotDetected) U Benzodiazepines Scrn Detected H (NotDetected) [place] 0.5 mmol/L Urine Cocaine Screen Not Detected (NotDetected) U Marijuana (THC) Screen Not Detected (NotDetected) Disposition Clinical Impression: Depression, Suicidal ideation Disposition: HOME SELF-CARE Condition: Good Is patient prescribed a controlled substance at d/c from ED?: No Referrals: Reina Clark NPC [Primary Care Provider] - 1-2 days Time of Disposition: 13:25
[2020-09-22 10:18] LABS: Basophils % (A) 0 %; Eosinophils # (A) 0.1 k/uL (0-0.7); Eosinophils % (A) 1 %; HCT 49.5 % (34.0-46.0); HGB 16.4 gm/dL (11.4-16.0); Lymphocytes # (A) 0.3 k/uL (1.0-4.8); Lymphocytes % (A) 4 %; MCV 96.9 fL (80.0-100.0); Mean Platelet Volume 6.9; Monocytes # (A) 0.5 k/uL (0-1.0); Monocytes % (A) 5 %; Neutrophils % (A) 89 %; Platelet Count 165 k/uL (150-450); RBC 5.11 m/uL (3.80-5.40); WBC 8.9 k/uL (3.8-10.6)
[2020-09-22 10:27] LABS: Albumin 4.7 g/dL (3.5-5.0); Calcium 10.2 mg/dL (8.4-10.2); Lithium 0.5 mmol/L; Potassium 4.5 mmol/L (3.5-5.1); Total Bilirubin 0.8 mg/dL (0.2-1.3); Total Protein 7.5 g/dL (6.3-8.2)
[2020-09-22 11:06] LABS: Phencyclidine Screen,Urine Not Detected (NotDetected); Urn Cannabinoid Scrn Not Detected (NotDetected)
[2020-09-22 11:07] LABS: Amphetamine Screen,Urine Not Detected (NotDetected); Barbiturate Screen,Urine Detected (NotDetected); Benzodiazepines Screen,Urine Detected (NotDetected); Cocaine Screen,Urine Not Detected (NotDetected); Methadone Screen, Urine Not Detected (NotDetected); Opiate Screen,Urine Not Detected (NotDetected); Oxycodone Screen, Urine Not Detected (NotDetected); Tricyclic Antidepressant,Urine Not Detected (NotDetected)
[2020-09-22] MEDS ORDERED: ALPRAZolam 1 MG TAB PO STA (13:23)
[2020-09-22 13:54] VITALS: BP 132/76; PULSE 78; RESP 16
== END 2020-09-22 13:57 | disposition home or self-care (01) ==
LOC: EC 09:27
DX: R45.851 Suicidal ideations (principal); F32.9 Major depressive disorder, single episode, unspecified; I10 Essential (primary) hypertension; E03.9 Hypothyroidism, unspecified; E78.5 Hyperlipidemia, unspecified; J44.9 Chronic obstructive pulmonary disease, unspecified; F41.9 Anxiety disorder, unspecified; Z79.01 Long term (current) use of anticoagulants; Z79.899 Other long term (current) drug therapy; Z79.890 Hormone replacement therapy; Z79.51 Long term (current) use of inhaled steroids; Z91.040 Latex allergy status; Z85.118 Personal history of other malignant neoplasm of bronchus and lung; Z86.718 Personal history of other venous thrombosis and embolism; Z87.891 Personal history of nicotine dependence
CPT/HCPCS: 36415; 80053; 80178; 80306; 82075; 85025; 99285

== ENCOUNTER 2020-10-12 11:47 | Inpatient (IN) | payer MEDICARE, BC ==
[2020-10-12 12:19] LABS: Glucose,Whole Blood 117 mg/dL (75-99)
--- NOTE | 2020-10-12 12:46 | ED ---
General Adult HPI - General Chief complaint: Altered Mental Status Stated complaint: Confusion Time Seen by Provider: 10/12/20 12:00 Source: patient, RN notes reviewed, old records reviewed Mode of arrival: wheelchair Limitations: altered mental status - History of Present Illness Initial comments: This is a 80-year-old female presents emergency Department with her does most of the talking. states over the last 2 weeks she has been altered mentally. Patient has been unable to carry on a normal conversation is been very forgetful and often forgets where she is going in the house and becomes very upset and started crying. states that she has had no fevers or chills. Patient denies any chest pain difficult breathing shortest breath per patient denies any palpitations. Patient denies any abdominal pain patient denies any nausea vomiting. There is been no recent injury or trauma. Patient did have lithium increased a few weeks ago as well as Ativan given to her for her anxiety. - Related Data Home Medications Medication Instructions Recorded Confirmed Atorvastatin [Lipitor] 20 mg PO DAILY 02/07/16 10/12/20 Levothyroxine Sodium [Synthroid] 100 mcg PO DAILY 02/07/16 10/12/20 [place] Carbonate 300 mg PO BID 02/07/16 10/12/20 Sertraline [Zoloft] 100 mg PO DAILY 02/07/16 10/12/20 atenoloL [Tenormin] 50 mg PO DAILY 02/07/16 10/12/20 Budesonide-Formot 160-4.5 Mcg 2 puff INHALATION RT-BID 06/03/17 10/12/20 [Symbicort 160-4.5 Mcg Inhaler] Albuterol Sulfate [Ventolin HFA] 2 puff INHALATION RT-Q4H PRN 09/10/20 10/12/20 Apixaban [Eliquis] 5 mg PO BID 09/10/20 10/12/20 Primidone [Mysoline] 50 mg PO DAILY 09/10/20 10/12/20 ALPRAZolam [Xanax] 0.5 mg PO TID 09/22/20 10/12/20 Allergies Allergy/AdvReac Type Severity Reaction Status Date / Time latex Allergy Swelling Verified 10/12/20 13:34 Review of Systems ROS Statement: Those systems with pertinent positive or pertinent negative responses have been documented in the HPI. ROS Other: All systems not noted in ROS Statement are negative. Past Medical History Past Medical History: Atrial Flutter, Cancer, COPD, Deep Vein Thrombosis (DVT), Hyperlipidemia, Osteoarthritis (OA), Pneumonia, Thyroid Disorder Additional Past Medical History / Comment(s): Small cell lung cancer, details discussed above treated with chemoradiation therapy, right-sided pleural effusion postthoracentesis, history of difficulty in swallowing with previous aspiration back in 2017 following her cancer treatment, history of right carotid artery disease, history of right upper extremity DVT, hyperlipidemia, hypertension, hypothyroidism, COPD. She also has history of migraines. History of Any Multi-Drug Resistant Organisms: None Reported Past Surgical History: Adenoidectomy, Appendectomy, Hysterectomy, Tonsillectomy Additional Past Surgical History / Comment(s): colonoscopy, CORE BX lt breast bx x3 has markers in place. rt hand sx to repair after injury-has limited strength in rt hand, LEFT PYELOPLASTY WITH JJ CATHETER Past Anesthesia/Blood Transfusion Reactions: No Reported Reaction Past Psychological History: Anxiety, Depression Smoking Status: Former smoker Past Alcohol Use History: None Reported Past Drug Use History: None Reported - Past Family History Father Additional Family Medical History / Comment(s): at age 48 from cerebral hemorrage Mother Family Medical History: Cancer Additional Family Medical History / Comment(s): LUNG CANCER Sister(s) Family Medical History: Cancer Additional Family Medical History / Comment(s): LUNG CANCER General Exam - General Exam Comments Initial Comments: GENERAL: Patient is well-developed and well-nourished. Patient is nontoxic and well- hydrated and is in no acute distress. ENT: Neck is soft and supple. No significant lymphadenopathy is noted. Oropharynx is clear. Moist mucous membranes. Neck has full range of motion without eliciting any pain. EYES: The sclera were anicteric and conjunctiva were pink and moist. Extraocular movements were intact and pupils were equal round and reactive to light. Eyelids were unremarkable. PULMONARY: Unlabored respirations. Good breath sounds bilaterally. No audible rales rhonchi or wheezing was noted. CARDIOVASCULAR: There is a regular rate and rhythm without any murmurs gallops or rubs. ABDOMEN: Soft and nontender with normal bowel sounds. SKIN: Skin is clear with no lesions or rashes and otherwise unremarkable. NEUROLOGIC: Patient is alert and oriented 2. Cranial nerves II through XII are grossly intact. Motor and sensory are also intact. Normal speech, volume and content. Symmetrical smile. MUSCULOSKELETAL: Normal extremities with adequate strength and full range of motion. No lower extremity swelling or edema. No calf tenderness. LYMPHATICS: No significant lymphadenopathy is noted PSYCHIATRIC: Normal psychiatric evaluation. Limitations: altered mental status Course Vital Signs 10/12/20 10/12/20 10/12/20 11:57 13:52 15:08 Temperature 99.8 F H 97.9 F 97.9 F Pulse Rate 70 61 61 Respiratory 18 16 16 Rate Blood Pressure 116/81 128/59 127/63 O2 Sat by Pulse 94 L 93 L 95 Oximetry Medical Decision Making - Medical Decision Making EKG shows normal sinus rhythm at 67 bpm AL interval 250 QRS is 82 QT intervals 416 QTC is 439. Patient's EKG shows no ST segment elevation or depression that it starts in her - Lab Data Result diagrams: 10/12/20 13:09 10/12/20 13:09 Lab Results 10/12/20 10/12/20 10/12/20 Range/Units 12:17 13:09 13:09 WBC 7.3 (3.8-10.6) k/uL RBC 4.54 (3.80-5.40) m/uL Hgb 15.3 (11.4-16.0) gm/dL Hct 43.7 (34.0-46.0) % MCV 96.2 (80.0-100.0) fL MCH 33.7 (25.0-35.0) pg MCHC 35.1 (31.0-37.0) g/dL RDW 13.1 (11.5-15.5) % Plt Count 155 (150-450) k/uL MPV 7.7 Neutrophils % 85 % Lymphocytes % 4 % Monocytes % 8 % Eosinophils % 1 % Basophils % 1 % Neutrophils # 6.2 (1.3-7.7) k/uL Lymphocytes # 0.3 L (1.0-4.8) k/uL Monocytes # 0.6 (0-1.0) k/uL Eosinophils # 0.1 (0-0.7) k/uL Basophils # 0.0 (0-0.2) k/uL PT (9.0-12.0) sec INR (<1.2) APTT (22.0-30.0) sec Sodium 139 (137-145) mmol/L Potassium 4.1 (3.5-5.1) mmol/L Chloride 106 (98-107) mmol/L Carbon Dioxide 25 (22-30) mmol/L Anion Gap 8 mmol/L BUN 20 H (7-17) mg/dL Creatinine 0.80 (0.52-1.04) mg/dL Est GFR (CKD-EPI)AfAm 82 (>60 ml/min/1.73 sqM) Est GFR (CKD-EPI)NonAf 71 (>60 ml/min/1.73 sqM) Glucose 113 H (74-99) mg/dL POC Glucose (mg/dL) 117 H (75-99) mg/dL POC Glu Inbound Customer Service Agent Sheri Marie Calcium 10.0 (8.4-10.2) mg/dL Total Bilirubin 0.7 (0.2-1.3) mg/dL AST 22 (14-36) U/L ALT 14 (4-34) U/L Alkaline Phosphatase 113 (38-126) U/L Troponin I (0.000-0.034) ng/mL Total Protein 6.7 (6.3-8.2) g/dL Albumin 4.4 (3.5-5.0) g/dL [place] 3.3 H* mmol/L 10/12/20 10/12/20 Range/Units 13:09 13:09 WBC (3.8-10.6) k/uL RBC (3.80-5.40) m/uL Hgb (11.4-16.0) gm/dL Hct (34.0-46.0) % MCV (80.0-100.0) fL MCH (25.0-35.0) pg MCHC (31.0-37.0) g/dL RDW (11.5-15.5) % Plt Count (150-450) k/uL MPV Neutrophils % % Lymphocytes % % Monocytes % % Eosinophils % % Basophils % % Neutrophils # (1.3-7.7) k/uL Lymphocytes # (1.0-4.8) k/uL Monocytes # (0-1.0) k/uL Eosinophils # (0-0.7) k/uL Basophils # (0-0.2) k/uL PT 10.8 (9.0-12.0) sec INR 1.0 (<1.2) APTT 24.7 (22.0-30.0) sec Sodium (137-145) mmol/L Potassium (3.5-5.1) mmol/L Chloride (98-107) mmol/L Carbon Dioxide (22-30) mmol/L Anion Gap mmol/L BUN (7-17) mg/dL Creatinine (0.52-1.04) mg/dL Est GFR (CKD-EPI)AfAm (>60 ml/min/1.73 sqM) Est GFR (CKD-EPI)NonAf (>60 ml/min/1.73 sqM) Glucose (74-99) mg/dL POC Glucose (mg/dL) (75-99) mg/dL POC Glu Inbound Customer Service Agent ID Calcium (8.4-10.2) mg/dL Total Bilirubin (0.2-1.3) mg/dL AST (14-36) U/L ALT (4-34) U/L Alkaline Phosphatase (38-126) U/L Troponin I <0.012 (0.000-0.034) ng/mL Total Protein (6.3-8.2) g/dL Albumin (3.5-5.0) g/dL [place] mmol/L Disposition Clinical Impression: [place] toxicity, Altered mental status Disposition: ADMITTED IP TO THIS HOSP Referrals: Reina Clark NPC [Primary Care Provider] - 1-2 days Time of Disposition: 15:41
[2020-10-12 13:19] LABS: Basophils % (A) 1 %; Eosinophils # (A) 0.1 k/uL (0-0.7); Eosinophils % (A) 1 %; HCT 43.7 % (34.0-46.0); HGB 15.3 gm/dL (11.4-16.0); Lymphocytes # (A) 0.3 k/uL (1.0-4.8); Lymphocytes % (A) 4 %; MCH 33.7 pg (25.0-35.0); MCHC 35.1 g/dL (31.0-37.0); MCV 96.2 fL (80.0-100.0); Mean Platelet Volume 7.7; Monocytes # (A) 0.6 k/uL (0-1.0); Monocytes % (A) 8 %; Neutrophils # (A) 6.2 k/uL (1.3-7.7); Neutrophils % (A) 85 %; Platelet Count 155 k/uL (150-450); RBC 4.54 m/uL (3.80-5.40); RDW 13.1 % (11.5-15.5); WBC 7.3 k/uL (3.8-10.6)
[2020-10-12 13:35] LABS: Partial Thromboplastin Time 24.7 sec (22.0-30.0); Prothrombin Time 10.8 sec (9.0-12.0)
[2020-10-12 13:39] LABS: Albumin 4.4 g/dL (3.5-5.0); Potassium 4.1 mmol/L (3.5-5.1); Total Bilirubin 0.7 mg/dL (0.2-1.3); Total Protein 6.7 g/dL (6.3-8.2)
--- NOTE | 2020-10-12 13:47 | XR ---
EXAMINATION TYPE: XR chest 2V DATE OF EXAM: 10/12/2020 COMPARISON: Chest x-ray and CT dated 09/12/2020, 10/05/2020 HISTORY: Altered mental status TECHNIQUE: Frontal and lateral views of the chest are obtained. FINDINGS: There is no focal air space opacity or pneumothorax seen. Blunting of the right costophren ic angle is stable. Aorta is dense. The cardiac silhouette size is unchanged. There are overlying le ads. The osseous structures are intact. IMPRESSION: Difficult to exclude minimal effusion
[2020-10-12 13:49] LABS: Lithium 3.3 mmol/L
--- NOTE | 2020-10-12 14:35 | CT ---
EXAMINATION TYPE: CT brain wo con DATE OF EXAM: 10/12/2020 COMPARISON: None HISTORY: Altered mental status CT DLP: 1060.4 mGycm Automated exposure control for dose reduction was used. FINDINGS: Moderate generalized degenerative change of the greater frontal lobe component. No acute hemorrhage o r mass effect. No midline shift. Intracranial atherosclerotic changes noted. The globes are symmetric. Craniocervical junction maintained. Sella turcica has a normal appearance. Changes of chronic sinusitis noted. IMPRESSION: DEGENERATIVE CHANGE WITH NO EVIDENCE OF ACUTE HEMORRHAGE OR MASS EFFECT.
[2020-10-12] MEDS ORDERED: SODIUM CHLORIDE 0.9% 2,000 ML IV ONE (14:47)
[2020-10-12] MEDS ORDERED: SODIUM CHLORIDE 0.9% 1,000 ML IV ONE (15:41)
[2020-10-12 16:33] LABS: Appearance,Urine Clear (Clear); Bilirubin,Urine Negative (Negative); Blood,Urine Negative (Negative); Color,Urine Yellow; Glucose,Urine (UA) Negative (Negative); Ketones,Urine 1+ (Negative); Leukocyte Esterase,Urine Negative (Negative); Nitrite,Urine Negative (Negative); Protein,Urine Trace (Negative); Specific Gravity,Urine 1.017 (1.001-1.035); Urobilinogen,Urine <2.0 mg/dL (<2.0)
[2020-10-12 16:43] LABS: Amphetamine Screen,Urine Not Detected (NotDetected); Barbiturate Screen,Urine Detected (NotDetected); Benzodiazepines Screen,Urine Detected (NotDetected); Cocaine Screen,Urine Not Detected (NotDetected); Methadone Screen, Urine Not Detected (NotDetected); Opiate Screen,Urine Not Detected (NotDetected); Oxycodone Screen, Urine Not Detected (NotDetected); Phencyclidine Screen,Urine Not Detected (NotDetected); Tricyclic Antidepressant,Urine Not Detected (NotDetected); Urn Cannabinoid Scrn Not Detected (NotDetected)
[2020-10-12] MEDS ORDERED: NALOXONE 0.4 MG/ML 1 ML VIAL IV PRN (17:50)
[2020-10-12] MEDS ORDERED: ACETAMINOPHEN TAB 325 MG TAB PO PRN (17:50)
[2020-10-12] MEDS ORDERED: ALBUTEROL HFA INHALER INHALATION PRN (17:54)
--- NOTE | 2020-10-12 17:55 | P.HPIM ---
History of Present Illness H&P Date: 10/12/20 Chief Complaint: AMS, expressive aphasia 80 year old woman with history of COPD, DVT, Small Cell Lung Cancer not currently on treatment, recurrent pleural effusions, Atrial Flutter, Bipolar disorder, Hypothyroidism presented with confusion. Patient and are poor historians; patient has expressive aphasia, has limited medical insight. Most of history is obtained from ER provider sign out and my phone call with patient's PCP. From my understanding, patient has been increasingly confused for last 1.5 weeks, having difficulty expressing herself and with word- finding. She has also noticed increased thirst and urination with slight dysuria upon urination. Patient has been on lithium for a "long time" but does not follow with a psychiatrist. She nor are certain why she is on this medication. From my conversation with PCP, I gather she has been on it for decades. From my conversation with family, it appears that she only recollects seeing a psychiatrist in clinic a long time ago, since retired, who likely started this medication for her. Recently, PCP noted that patient appeared anxious and hyperverbal, and became concerned for manic episode developing. At that time, she obtained a lithium level, which was low, and therefore increased her lithium by "half a pill" (according to .) Patient was seen in PCP's office today, who noted drastic difference in mentation between 10/02 and 10/12, which prompted her request that patient present to the ER. Notably, neither patient nor patient's were able to give me this history point. ROS is + for dysuria, diarrhea, frequency, thirst, polydipsia, polyuria. ROS is - for chest pain, palps, fevers, chills, n/v, abd pain, cough, dyspnea, muscle spasms. In the ED, notable findings are lithium level of 3.3. Review of Systems All Systems reviewed and pertinent positives and negatives noted in HPI, all other symptoms are negative Past Medical History Past Medical History: Atrial Flutter, Cancer, COPD, Deep Vein Thrombosis (DVT), Hyperlipidemia, Osteoarthritis (OA), Pneumonia, Thyroid Disorder Additional Past Medical History / Comment(s): Small cell lung cancer, details discussed above treated with chemoradiation therapy, right-sided pleural effusion postthoracentesis, history of difficulty in swallowing with previous aspiration back in 2017 following her cancer treatment, history of right carotid artery disease, history of right upper extremity DVT, hyperlipidemia, hy pertension, hypothyroidism, COPD. She also has history of migraines. History of Any Multi-Drug Resistant Organisms: None Reported Past Surgical History: Adenoidectomy, Appendectomy, Hysterectomy, Tonsillectomy Additional Past Surgical History / Comment(s): colonoscopy, CORE BX lt breast bx x3 has markers in place. rt hand sx to repair after injury-has limited strength in rt hand, LEFT PYELOPLASTY WITH JJ CATHETER Past Anesthesia/Blood Transfusion Reactions: No Reported Reaction Past Psychological History: Anxiety, Depression Smoking Status: Former smoker Past Alcohol Use History: None Reported Past Drug Use History: None Reported - Past Family History Father Additional Family Medical History / Comment(s): at age 48 from cerebral hemorrage Mother Family Medical History: Cancer Additional Family Medical History / Comment(s): LUNG CANCER Sister(s) Family Medical History: Cancer Additional Family Medical History / Comment(s): LUNG CANCER Medications and Allergies Home Medications Medication Instructions Recorded Confirmed Type Atorvastatin [Lipitor] 20 mg PO DAILY 02/07/16 10/12/20 History Levothyroxine Sodium [Synthroid] 100 mcg PO DAILY 02/07/16 10/12/20 History [place] Carbonate 300 mg PO BID 02/07/16 10/12/20 History Sertraline [Zoloft] 100 mg PO DAILY 02/07/16 10/12/20 History atenoloL [Tenormin] 50 mg PO DAILY 02/07/16 10/12/20 History Budesonide-Formot 160-4.5 Mcg 2 puff INHALATION RT-BID 06/03/17 10/12/20 History [Symbicort 160-4.5 Mcg Inhaler] Albuterol Sulfate [Ventolin HFA] 2 puff INHALATION RT-Q4H PRN 09/10/20 10/12/20 History Apixaban [Eliquis] 5 mg PO BID 09/10/20 10/12/20 History Primidone [Mysoline] 50 mg PO DAILY 09/10/20 10/12/20 History ALPRAZolam [Xanax] 0.5 mg PO TID 09/22/20 10/12/20 History Allergies Allergy/AdvReac Type Severity Reaction Status Date / Time latex Allergy Swelling Verified 10/12/20 13:34 Physical Exam Osteopathic Statement: *. No significant issues noted on an osteopathic structural exam other than those noted in the History and Physical/Consult. Vitals: Vital Signs Temp Pulse Resp BP Pulse Ox 10/12/20 16:05 97.9 F 78 16 141/72 96 10/12/20 15:08 97.9 F 61 16 127/63 95 10/12/20 13:52 97.9 F 61 16 128/59 93 L 10/12/20 11:57 99.8 F H 70 18 116/81 94 L Intake and Output 10/12/20 10/12/20 10/12/20 06:59 14:59 22:59 Other: Weight 67.132 kg Gen: awake, alert HEENT: normocephalic, atraumatic, good hearing acuity, moist mucous membranes Resp: good air exchange, breathing comfortably with no accessory muscle use, bibasilar lung crackles CVS: good distal perfusion x 4, regular rate and rhythm without murmurs GI: soft, NTTP, ND : no SPT, no CVAT, crespo catheter not present MSK: no pitting edema, no clubbing Neuro: moving all extremities, following commands, 5 out of 5 muscle strength, expressive aphasia Psych: cooperative, anxious mood Results CBC & Chem 7: 10/12/20 13:09 10/12/20 13:09 Labs: Abnormal Lab Results - Last 24 Hours (Table) 10/12/20 10/12/20 10/12/20 Range/Units 12:17 13:09 13:09 Lymphocytes # 0.3 L (1.0-4.8) k/uL BUN 20 H (7-17) mg/dL Glucose 113 H (74-99) mg/dL POC Glucose (mg/dL) 117 H (75-99) mg/dL Urine Protein (Negative) Urine Ketones (Negative) Ur Barbiturates Screen (NotDetected) U Benzodiazepines Scrn (NotDetected) [place] 3.3 H* mmol/L 10/12/20 Range/Units Unknown Lymphocytes # (1.0-4.8) k/uL BUN (7-17) mg/dL Glucose (74-99) mg/dL POC Glucose (mg/dL) (75-99) mg/dL Urine Protein Trace H (Negative) Urine Ketones 1+ H (Negative) Ur Barbiturates Screen Detected H (NotDetected) U Benzodiazepines Scrn Detected H (NotDetected) [place] mmol/L Assessment and Plan Assessment: 1. Toxic metabolic encephalopathy 2. [place] poisoning 3. COPD without exacerbation 4. History of DVT 5. Hypothyroidism 6. Small cell lung cancer 7. History of atrial flutter 8. Hyperlipidemia 9. Bipolar Disorder 80-year-old woman with a history of COPD, DVT, hypothyroidism, small cell lung cancer, atrial flutter, hyperlipidemia, bipolar disorder on lithium presented with 1.5 weeks of increasing confusion and expressive aphasia in the background of increased lithium dose with elevated lithium level concerning for toxicity; admitted for evaluation with nephrology as well as further evaluation of encephalopathy for other causes such as stroke or metastasis to the brain. Plan: - admit to telemetry, seizure precautions - neurochecks - MRI Brain w and w/o, pending: to rule out mets to brain vs stroke causing expressive aphasia, no motor weakness - nephrology consult to consider iHD - IVF: NS 1L bolus in ER --> NS 150cc/hr - daily lithium level - hold home xanax for now - will permanently d/c lithium, and have patient seen by psychiatry once AMS resolves/improves - hold zoloft as SSRIs may pre-dispose patients to [place] Chronic Conditions: - duonebs PRN, continue home symbicort - continue eliquis - continue home levothyroxine - outpatient oncology follow up for SCLC, r/o mets to brain with MRI - continue atenolol - continue lipitor - continue primidone In speaking with family, I do not think they are at a point where they can discuss code status and GoC earnestly due to patient's mentation, and 's limited insight. I discussed this with the PCP over the phone, and previously both her notes, and oncology's notes reflect that patient is Full Code. Will re-address once mentation clears with patient if able. DVT PPx: on eliquis
[2020-10-12] MEDS: SODIUM CHLORIDE 0.9% 1,000 ML IV SCH ×2 (18:15→21:43)
[2020-10-12] MEDS: SYMBICORT 160-4.5 MCG INHALER INHALATION SCH (20:44)
[2020-10-12] MEDS: APIXABAN 5 MG TAB PO SCH (22:44)
[2020-10-13] MEDS: LEVOTHYROXINE 100 MCG TAB PO SCH (05:47)
[2020-10-13] MEDS: SODIUM CHLORIDE 0.9% 1,000 ML IV SCH ×2 (06:04→14:15)
[2020-10-13 06:33] LABS: Basophils % (A) 0 %; Eosinophils # (A) 0.1 k/uL (0-0.7); Eosinophils % (A) 2 %; HCT 39.9 % (34.0-46.0); HGB 13.5 gm/dL (11.4-16.0); Lymphocytes # (A) 0.3 k/uL (1.0-4.8); Lymphocytes % (A) 6 %; MCH 33.3 pg (25.0-35.0); MCHC 33.9 g/dL (31.0-37.0); MCV 98.5 fL (80.0-100.0); Mean Platelet Volume 7.7; Monocytes # (A) 0.4 k/uL (0-1.0); Monocytes % (A) 8 %; Neutrophils # (A) 4.2 k/uL (1.3-7.7); Neutrophils % (A) 83 %; Platelet Count 111 k/uL (150-450); RBC 4.05 m/uL (3.80-5.40); WBC 5.1 k/uL (3.8-10.6)
[2020-10-13 06:40] LABS: African American GFR (CKD) >90 (>60 ml/min/1.73 sqM); Anion Gap 5 mmol/L; Blood Urea Nitrogen 15 mg/dL (7-17); Calcium 8.3 mg/dL (8.4-10.2); Carbon Dioxide 22 mmol/L (22-30); Chloride 113 mmol/L (98-107); Glucose 86 mg/dL (74-99); Non-African American GFR(CKD) 81 (>60 ml/min/1.73 sqM); Potassium 3.8 mmol/L (3.5-5.1); Sodium 140 mmol/L (137-145)
[2020-10-13] MEDS: SYMBICORT 160-4.5 MCG INHALER INHALATION SCH ×2 (08:25→20:10)
[2020-10-13] MEDS: APIXABAN 5 MG TAB PO SCH ×2 (08:48→21:42)
[2020-10-13] MEDS: ATORVASTATIN 20 MG TAB PO SCH (08:48)
[2020-10-13] MEDS: PRIMIDONE 50 MG TAB PO SCH (08:48)
[2020-10-13] MEDS: atenoloL 50 MG TAB PO SCH (08:48)
--- NOTE | 2020-10-13 09:02 | XR ---
EXAMINATION TYPE: XR chest 1V DATE OF EXAM: 10/13/2020 COMPARISON: Chest x-ray 10/12/2020, CT 09/10/2020 HISTORY: Hypoxia TECHNIQUE: Single frontal view of the chest is obtained. FINDINGS: Patchy basilar densities present. Nodular density seen in the right paratracheal location is vascular. Cardiac mediastinal silhouette shows a similar appearance. There is persistent prominenc e of the right hilar region. Possible basilar effusion on the right. No pneumothorax. There is underl caleb emphysema. Aorta is dense. IMPRESSION: Right hilar adenopathy. Probable right pleural effusion, difficult to exclude pneumonia.
--- NOTE | 2020-10-13 10:47 | P.PN ---
Subjective Progress Note Date: 10/13/20 Pt still with expressive aphasia today, but no other major neurologic deficits. No new complaints. [place] level coming down from 3.3-->2.6-->2.0 with aggressive IVF. Objective - Vital Signs Vital signs: Vital Signs Temp 98.6 F 10/13/20 05:00 Pulse 68 10/13/20 05:00 Resp 17 10/13/20 05:00 BP 128/70 10/13/20 05:00 Pulse Ox 93 L 10/13/20 05:00 Intake & Output 10/12/20 10/13/20 10/13/20 18:59 06:59 18:59 Intake Total 1550 Balance 1550 Weight 67.132 kg 67.132 kg Intake: Intake, IV Titration 1350 Amount Sodium Chloride 0.9% 1, 1350 000 ml @ 150 mls/hr IV . Q6H40M [facility] Rx#:[id number] Oral 200 Other: Voiding Method Toilet # Voids 1 1 - Exam Gen: awake, alert HEENT: normocephalic, atraumatic, good hearing acuity, moist mucous membranes Resp: good air exchange, breathing comfortably with no accessory muscle use, bibasilar lung crackles CVS: good distal perfusion x 4, regular rate and rhythm without murmurs GI: soft, NTTP, ND : no SPT, no CVAT, crespo catheter not present MSK: no pitting edema, no clubbing Neuro: moving all extremities, following commands, 5 out of 5 muscle strength, expressive aphasia Psych: cooperative, anxious mood - Labs CBC & Chem 7: 10/13/20 05:38 10/13/20 05:38 Labs: Abnormal Lab Results - Last 24 Hours (Table) 10/12/20 10/12/20 10/12/20 Range/Units 12:17 13:09 13:09 Plt Count (150-450) k/uL Lymphocytes # 0.3 L (1.0-4.8) k/uL Chloride (98-107) mmol/L BUN 20 H (7-17) mg/dL Glucose 113 H (74-99) mg/dL POC Glucose (mg/dL) 117 H (75-99) mg/dL Calcium (8.4-10.2) mg/dL Urine Protein (Negative) Urine Ketones (Negative) Ur Barbiturates Screen (NotDetected) U Benzodiazepines Scrn (NotDetected) [place] 3.3 H* mmol/L 10/12/20 10/12/20 10/13/20 Range/Units 18:40 Unknown 05:38 Plt Count 111 L (150-450) k/uL Lymphocytes # 0.3 L (1.0-4.8) k/uL Chloride (98-107) mmol/L BUN (7-17) mg/dL Glucose (74-99) mg/dL POC Glucose (mg/dL) (75-99) mg/dL Calcium (8.4-10.2) mg/dL Urine Protein Trace H (Negative) Urine Ketones 1+ H (Negative) Ur Barbiturates Screen Detected H (NotDetected) U Benzodiazepines Scrn Detected H (NotDetected) [place] 2.6 H* mmol/L 10/13/20 Range/Units 05:38 Plt Count (150-450) k/uL Lymphocytes # (1.0-4.8) k/uL Chloride 113 H (98-107) mmol/L BUN (7-17) mg/dL Glucose (74-99) mg/dL POC Glucose (mg/dL) (75-99) mg/dL Calcium 8.3 L (8.4-10.2) mg/dL Urine Protein (Negative) Urine Ketones (Negative) Ur Barbiturates Screen (NotDetected) U Benzodiazepines Scrn (NotDetected) [place] 2.0 H* mmol/L Assessment and Plan Assessment: 1. Toxic metabolic encephalopathy 2. [place] poisoning 3. COPD without exacerbation 4. History of DVT 5. Hypothyroidism 6. Small cell lung cancer 7. History of atrial flutter 8. Hyperlipidemia 9. Bipolar Disorder 80-year-old woman with a history of COPD, DVT, hypothyroidism, small cell lung cancer, atrial flutter, hyperlipidemia, bipolar disorder on lithium presented with 1.5 weeks of increasing confusion and expressive aphasia in the background of increased lithium dose with elevated lithium level concerning for toxicity; admitted for evaluation with nephrology as well as further evaluation of encephalopathy for other causes such as stroke or metastasis to the brain. Plan: - admit to telemetry, seizure precautions - neurochecks - MRI Brain w and w/o, pending: to rule out mets to brain vs stroke causing expressive aphasia, no motor weakness - nephrology consult, appreciate recs - IVF: NS 1L bolus in ER --> NS 150cc/hr - daily lithium level, down to 2.0 on 10/13 - hold home xanax for now - will permanently d/c lithium, and have patient seen by psychiatry once AMS resolves/improves - hold zoloft as SSRIs may pre-dispose patients to [place] Chronic Conditions: - duonebs PRN, continue home symbicort - continue eliquis - continue home levothyroxine - outpatient oncology follow up for SCLC, r/o mets to brain with MRI - continue atenolol - continue lipitor - continue primidone In speaking with family, I do not think they are at a point where they can discuss code status and GoC earnestly due to patient's mentation, and 's limited insight. I discussed this with the PCP over the phone, and previously both her notes, and oncology's notes reflect that patient is Full Code. Will re-address once mentation clears with patient if able. DVT PPx: on eliquis
[2020-10-13] MEDS ORDERED: ALPRAZolam 0.5 MG TAB PO PRN (11:18)
--- NOTE | 2020-10-13 18:49 | CONS ---
CONSULTATION REASON FOR CONSULT: [place] toxicity. HISTORY OF PRESENT ILLNESS: Patient is 80-year-old female who has a history of bipolar disorder and is maintained on lithium. Patient was admitted to the hospital with increased confusion. It appears that her dose of lithium was recently increased about a week and a half ago as outpatient because her level was low. On admission, the patient has been confused. Her creatinine was 0.7. Initial level was 3.3 and it decreased to 2.6 about 4 to 5 hours later after admission and administration of IV fluids. Subsequently this morning lithium level was down to 2 and then 1.7. Mentation, however, remains impaired although improved from yesterday, but patient remains confused. She was scheduled to have an MRI done, but patient was uncooperative and therefore it could not be done. Brain CT was negative for any acute findings. PAST MEDICAL HISTORY: Bipolar disorder, history of small-cell lung cancer, details not available, treated with chemotherapy and radiation therapy, history of pleural effusion, history of aspiration pneumonia, coronary artery disease, history of right upper extremity DVT, hyperlipidemia, hypertension, hypothyroidism, COPD. PAST SURGICAL HISTORY: Adenoidectomy, appendectomy, hysterectomy, pyeloplasty with double-J catheter placement. SOCIAL HISTORY: Patient is a former smoker. No history of drug abuse or alcohol abuse. MEDICATIONS: Medications prior to admission included Lipitor, Synthroid, lithium, Zoloft, Tenormin, Eliquis, Xanax, albuterol. ALLERGIES: ALLERGIES include LATEX, which causes swelling. REVIEW OF SYSTEMS: As per HPI. Other systems negative. PHYSICAL EXAMINATION: Patient is comfortable, awake, not in any acute distress. She is confused. Blood pressure was 111/57, heart rate 57 per minute. She is afebrile. EXAMINATION OF THE HEART: S1 and S2. EXAMINATION OF LUNGS: Bilateral breath sounds are heard. ABDOMEN: Soft, non-tender. Examination of lower extremities shows no significant edema. LAV CREWMAN exam is grossly intact. LABS: Sodium of 140, potassium 3.8, chloride 113, BUN 15, serum creatinine 0.7. UA shows trace protein, 1+ ketones, no blood noted. [place] level was 3.3, down to 2.62, and today it is at 1.7. PCR for coronavirus negative. ASSESSMENT: 1. [place] toxicity, currently improved. Patient was not dialyzed yesterday, as her renal function is preserved and the lithium level had improved significantly. Today it is down to 1.7. We will continue to hold off on dialysis. 2. Mental status changes associated with lithium toxicity, possibly another underlying etiology present. Patient could not have the MRI done. Initial CT scan was negative. 3. Hypothyroidism. 4. History of bipolar disorder, maintained on lithium, with recent increase in lithium level about a week and a half ago. 5. Lung cancer, details not available. History of chemotherapy and radiation therapy. PLAN: Continue IV fluids. Decrease rate. No need for dialysis at this point. Thank you for this consultation. We will continue to follow the patient with you during her hospitalization. MMODL / IJN: [id number] /
[2020-10-13] MEDS: ALPRAZolam 0.5 MG TAB PO SCH (21:42)
[2020-10-14 04:34] LABS: Glucose,Whole Blood 101 mg/dL (75-99)
[2020-10-14] MEDS: LEVOTHYROXINE 100 MCG TAB PO SCH (06:09)
[2020-10-14 07:15] LABS: Allen Test Performed? Yes
[2020-10-14 07:17] LABS: ABG Base Excess -8.8 mmol/L; ABG HCO3 16 mmol/L (21-25); ABG Oxygen Saturation 99.8 % (94-97); ABG PCO2 28 mmHg (35-45); ABG PH 7.38 (7.35-7.45); ABG PO2 138 mmHg (83-108); ABG TCO2 17 mmol/L (19-24)
[2020-10-14] MEDS: IPRATROPIUM-ALBUTEROL 3 ML NEB INHALATION PRN ×2 (07:37→19:49)
[2020-10-14] MEDS: SYMBICORT 160-4.5 MCG INHALER INHALATION SCH ×2 (07:37→19:49)
[2020-10-14] MEDS: atenoloL 50 MG TAB PO SCH (08:45)
[2020-10-14] MEDS: ATORVASTATIN 20 MG TAB PO SCH (08:45)
[2020-10-14] MEDS: PRIMIDONE 50 MG TAB PO SCH (08:45)
[2020-10-14] MEDS: ALPRAZolam 0.5 MG TAB PO SCH ×3 (08:45→21:07)
[2020-10-14] MEDS: APIXABAN 5 MG TAB PO SCH ×2 (08:46→21:07)
--- NOTE | 2020-10-14 12:18 | MR ---
EXAMINATION TYPE: MR brain wo/w con DATE OF EXAM: 10/14/2020 COMPARISON: 02/20/2016 HISTORY: AMS, expressive aphasia TECHNIQUE: Multiplanar, multisequence images of the brain and brainstem is performed without and with IV contras t, utilizing 7 mL intravenous Gadavist . FINDINGS: There are multiple soft tissue nodules in the lining or ependyma of the lateral ventricles most consistent with heterotopic reyna matter. In the right temporal lobe in the region of the insular cortex there is a questionable small mass onl y appreciated on the T2-weighted images which may be artifact but follow up of this is recommended. Following contrast administration there is no pathological enhancement throughout the brain parenchym a. On diffusion-weighted imaging, there is no diffusion restriction or acute ischemic event. The posterior fossa including the brainstem, fourth ventricle and cerebellar pontine angles appear no rmal. The intraorbital contents appear normal and symmetric. Visualized paranasal sinuses are well aerated although there is a small mucous retention cyst or polyp in the left maxillary sinus. The mastoid air cells are well aerated. IMPRESSION: 1. No evidence of acute ischemic event or pathological enhancement throughout the brain parenchyma. 2. Questionable small mass developing in the insular cortex and right temporal lobe is more likely ar tifactual in nature given the lack of visualization on other MRI sequences and lack of contrast enhan cement. 3. 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
--- NOTE | 2020-10-14 14:30 | P.PN ---
Subjective Progress Note Date: 10/14/20 Pts expressive aphasia is slightly improving, but she is now having significant anxiety/mood issues. Objective - Vital Signs Vital signs: Vital Signs Temp 97.6 F 10/14/20 12:03 Pulse 57 L 10/14/20 12:03 Resp 14 10/14/20 12:03 BP 156/71 10/14/20 12:03 Pulse Ox 93 L 10/14/20 12:03 Intake & Output 10/13/20 10/14/20 10/14/20 18:59 06:59 18:59 Intake Total 690 Balance 690 Intake: Oral 690 Other: Voiding Method Toilet # Voids 2 1 1 - Exam Gen: awake, alert HEENT: normocephalic, atraumatic, good hearing acuity, moist mucous membranes Resp: good air exchange, breathing comfortably with no accessory muscle use, bibasilar lung crackles CVS: good distal perfusion x 4, regular rate and rhythm without murmurs GI: soft, NTTP, ND : no SPT, no CVAT, crespo catheter not present MSK: no pitting edema, no clubbing Neuro: moving all extremities, following commands, 5 out of 5 muscle strength, expressive aphasia Psych: cooperative, anxious mood - Labs CBC & Chem 7: 10/13/20 05:38 10/13/20 05:38 Labs: Abnormal Lab Results - Last 24 Hours (Table) 10/14/20 10/14/20 Range/Units 04:26 07:15 ABG pCO2 28 L (35-45) mmHg ABG pO2 138 H (83-108) mmHg ABG HCO3 16 L (21-25) mmol/L ABG Total CO2 17 L (19-24) mmol/L ABG O2 Saturation 99.8 H (94-97) % POC Glucose (mg/dL) 101 H (75-99) mg/dL Assessment and Plan Assessment: 1. Toxic metabolic encephalopathy 2. [place] poisoning 3. COPD without exacerbation 4. History of DVT 5. Hypothyroidism 6. Small cell lung cancer 7. History of atrial flutter 8. Hyperlipidemia 9. Bipolar Disorder 80-year-old woman with a history of COPD, DVT, hypothyroidism, small cell lung cancer, atrial flutter, hyperlipidemia, bipolar disorder on lithium presented with 1.5 weeks of increasing confusion and expressive aphasia in the background of increased lithium dose with elevated lithium level concerning for toxicity; admitted for evaluation with nephrology as well as further evaluation of encephalopathy for other causes such as stroke or metastasis to the brain. Plan: - admit to telemetry, seizure precautions - neurochecks - MRI Brain w and w/o, pending: to rule out mets to brain vs stroke causing expressive aphasia, no motor weakness --> no infarct, possible brain mass - neurology consult, appreciate recs - EEG, pending - nephrology consult, appreciate recs - IVF: NS 1L bolus in ER --> NS 150cc/hr (held due to increasing hypoxia) - daily lithium level, down to 2.0 on 10/13 --> 1.1 on 10/14 - continue home xanax - will permanently d/c lithium, and have patient seen by psychiatry once AMS resolves/improves - hold zoloft as SSRIs may pre-dispose patients to davida - psych consult for anxiety/bipolar issues, pending Chronic Conditions: - duonebs PRN, continue home symbicort - continue eliquis - continue home levothyroxine - outpatient oncology follow up for SCLC, r/o mets to brain with MRI - continue atenolol - continue lipitor - continue primidone In speaking with family, I do not think they are at a point where they can dis cuss code status and GoC earnestly due to patient's mentation, and 's limited insight. I discussed this with the PCP over the phone, and previously both her notes, and oncology's notes reflect that patient is Full Code. Will re-address once mentation clears with patient if able. DVT PPx: on eliquis
--- NOTE | 2020-10-14 17:32 | P.CNNES ---
History of Present Illness Consult date: 10/14/20 History of Present Illness: The patient is a 80-year-old female who was seen in neurologic consultation on October 14, 2020 via teleneurology. The majority of the history is obtained from reviewing the chart. The patient's is at the bedside at the time of the evaluation. The patient herself says she came into the hospital because of stuttering speech and confusion. She says her symptoms have been present for approximately 2 weeks. She says they s tarted suddenly, while she was confused and have gotten worse. The patient is a poor historian, as is her . When asked about her dosing a lithium, the patient states that she does not know what that medication is. She wonders if it is "a vitamin". The patient is unable to tell me how often she takes the medication. She does not report recently seeing her family doctor regarding any health concerns. She says that she is healthy. She denies any psychiatric disorders. The patient denies difficulty swallowing. She denies weakness, visual changes and difficulty ambulating. In reviewing the chart, it appears the patient has a history of bipolar disorder and recently saw her family physician felt that she may be having an episode of davida. Her lithium dosage was raised at that time. I'm unable to find a history of essential tremor, in the records however the patient does take Mysoline. The patient reportedly has a history of small cell lung cancer, treated with radiation and chemotherapy. There is also history of atrial fibrillation. Past Medical History Past Medical History: Atrial Flutter, Cancer, COPD, Deep Vein Thrombosis (DVT), Hyperlipidemia, Osteoarthritis (OA), Pneumonia, Thyroid Disorder Additional Past Medical History / Comment(s): Small cell lung cancer, details discussed above treated with chemoradiation therapy, right-sided pleural effusion postthoracentesis, history of difficulty in swallowing with previous aspiration back in 2017 following her cancer treatment, history of right carotid artery disease, history of right upper extremity DVT, hyperlipidemia, hypertension, hypothyroidism, COPD. She also has history of migraines. ? Essential tremor History of Any Multi-Drug Resistant Organisms: None Reported Past Surgical History: Adenoidectomy, Appendectomy, Hysterectomy, Tonsillectomy Additional Past Surgical History / Comment(s): colonoscopy, CORE BX lt breast bx x3 has markers in place. rt hand sx to repair after injury-has limited strength in rt hand, LEFT PYELOPLASTY WITH JJ CATHETER Past Anesthesia/Blood Transfusion Reactions: No Reported Reaction Past Psychological History: Anxiety, Depression Additional Psychological History / Comment(s): . Smoking Status: Former smoker Past Alcohol Use History: None Reported Additional Past Alcohol Use History / Comment(s): quit smoking 2005, started smoking age 17, 1ppd. pt is recovered alcoholic. Past Drug Use History: None Reported - Past Family History Father Additional Family Medical History / Comment(s): at age 48 from cerebral hemorrage Mother Family Medical History: Cancer Additional Family Medical History / Comment(s): LUNG CANCER Sister(s) Family Medical History: Cancer Additional Family Medical History / Comment(s): LUNG CANCER Medications and Allergies Home Medications Medication Instructions Recorded Confirmed Type Atorvastatin [Lipitor] 20 mg PO DAILY 02/07/16 10/12/20 History Levothyroxine Sodium [Synthroid] 100 mcg PO DAILY 02/07/16 10/12/20 History [place] Carbonate 300 mg PO BID 02/07/16 10/12/20 History Sertraline [Zoloft] 100 mg PO DAILY 02/07/16 10/12/20 History atenoloL [Tenormin] 50 mg PO DAILY 02/07/16 10/12/20 History Budesonide-Formot 160-4.5 Mcg 2 puff INHALATION RT-BID 06/03/17 10/12/20 History [Symbicort 160-4.5 Mcg Inhaler] Albuterol Sulfate [Ventolin HFA] 2 puff INHALATION RT-Q4H PRN 09/10/20 10/12/20 History Apixaban [Eliquis] 5 mg PO BID 09/10/20 10/12/20 History Primidone [Mysoline] 50 mg PO DAILY 09/10/20 10/12/20 History ALPRAZolam [Xanax] 0.5 mg PO TID 09/22/20 10/12/20 History Allergies Allergy/AdvReac Type Severity Reaction Status Date / Time latex Allergy Swelling Verified 10/12/20 13:34 Physical Examination - Vital Signs Vital Signs: Vital Signs Temp Pulse Pulse Resp BP Pulse Ox 10/14/20 12:03 97.6 F 57 L 14 156/71 93 L 10/14/20 09:42 94 L 10/14/20 09:41 85 L 10/14/20 07:49 68 10/14/20 07:39 64 100 10/14/20 07:18 20 10/14/20 07:12 64 16 131/68 95 10/14/20 04:57 97.4 F L 61 18 144/70 93 L 10/13/20 20:02 98.6 F 58 L 18 119/67 94 L 10/13/20 17:52 95 Intake and Output 10/14/20 10/14/20 10/14/20 06:59 14:59 22:59 Other: # Voids 1 1 Gen.: The patient is reclining in the bed. She is well-nourished, well- developed and in mild distress. The patient however denies anxiety. HEENT: Head is atraumatic, normocephalic. Fundus not visualized. There is no scleral icterus. Mucous membranes are moist. Patient is wearing oxygen via nasal cannula. Neck: Without carotid bruits Heart: Regular rate and rhythm Lungs: Clear to auscultation Neurological examination Mental status: The patient is awake and alert. Her speech is stuttering. She has difficulty following some commands. She is oriented to her location, name, 's name and number of years they have been . There is no anomia. The patient is able to accurately repeat phrases. There is questionable right\\left confusion. The patient's stuttering speech is inconsistent. At times she is able to speak very clearly. She very clearly asks "what is wrong with me"? Cranial nerves: Pupils are equal at 2 mm and reactive. Visual hu intact. Extraocular movements are intact. There is no nystagmus. Facial sensation is intact. There is no facial asymmetry. Hearing is diminished. Uvula and palate are midline. Shoulder shrug is symmetric. Tongue protrudes midline. There is no tremor of the tongue. Motor: Upper extremity strength is symmetric at 4-5/5. The patient is able to raise both of her legs off of the bed. Ankle plantar and dorsiflexors are 5/5. Coordination: The patient very slowly performs [id number]-symi-dycoet testing. She requires repeated instructions for this test. There is a slight intention tremor bilaterally. Zeyd-iz-tdof testing is intact bilaterally. Sensation: Inconsistent Deep tendon reflexes: 2-3+/4+ throughout. Results - Laboratory Findings CBC and BMP: 10/13/20 05:38 10/13/20 05:38 Abnormal Lab Findings: Abnormal Labs 10/12/20 10/12/20 10/12/20 12:17 13:09 13:09 Plt Count Lymphocytes # 0.3 L ABG pCO2 ABG pO2 ABG HCO3 ABG Total CO2 ABG O2 Saturation Chloride BUN 20 H Glucose 113 H POC Glucose (mg/dL) 117 H Calcium Urine Protein Urine Ketones Ur Barbiturates Screen U Benzodiazepines Scrn [place] 3.3 H* 10/12/20 10/12/20 10/13/20 18:40 Unknown 05:38 Plt Count 111 L Lymphocytes # 0.3 L ABG pCO2 ABG pO2 ABG HCO3 ABG Total CO2 ABG O2 Saturation Chloride BUN Glucose POC Glucose (mg/dL) Calcium Urine Protein Trace H Urine Ketones 1+ H Ur Barbiturates Screen Detected H U Benzodiazepines Scrn Detected H [place] 2.6 H* 10/13/20 10/14/20 10/14/20 05:38 04:26 07:15 Plt Count Lymphocytes # ABG pCO2 28 L ABG pO2 138 H ABG HCO3 16 L ABG Total CO2 17 L ABG O2 Saturation 99.8 H Chloride 113 H BUN Glucose POC Glucose (mg/dL) 101 H Calcium 8.3 L Urine Protein Urine Ketones Ur Barbiturates Screen U Benzodiazepines Scrn [place] 2.0 H* Assessment and Plan Assessment: 1. Toxic encephalopathy secondary to moderate-severe lithium intoxication. 2. Stuttering speech without expressive aphasia. The patient has no difficulty naming objects. When she is distracted, her speech is clear and without stuttering. This speech pattern is likely secondary to anxiety 3. Reported history of bipolar disorder, with additional treatment for anxiety 4. History of COPD with mild hypercarbia 5. MRI of brain without evidence of infarct or mass Plan: 1. Await EEG 2. Continue to hold lithium until level is therapeutic 3. Consider the use of a different antidepressant as the combination of lithium and sertraline increases the risk of serotonin syndrome 4. Will check thyroid hormones as lithium toxicity can cause changes in levels 5. Consider psychiatry consultation
[2020-10-15] MEDS: LEVOTHYROXINE 100 MCG TAB PO SCH (06:12)
[2020-10-15] MEDS: SYMBICORT 160-4.5 MCG INHALER INHALATION SCH ×2 (08:21→20:32)
[2020-10-15] MEDS: atenoloL 50 MG TAB PO SCH (09:51)
[2020-10-15] MEDS: ALPRAZolam 0.5 MG TAB PO SCH ×3 (09:51→21:12)
[2020-10-15] MEDS: APIXABAN 5 MG TAB PO SCH ×2 (09:51→21:12)
[2020-10-15] MEDS: ATORVASTATIN 20 MG TAB PO SCH (09:51)
[2020-10-15] MEDS: PRIMIDONE 50 MG TAB PO SCH (09:51)
--- NOTE | 2020-10-15 11:16 | P.CN ---
Psychiatric Consult - . Consult date: 10/15/20 Consult:: 10/15/20 10:51 Chief complaint: this 79-year-old white female was brought to hospital by her . She stated that she was shaking like crazy and structuring. This patient has a history of bipolar disorder but does not follow up with the psychiatrist. Her dose of lithium was recently increased by her pcp and when she came to the hospital blood lithium level turned out to be 3.3. She stated that the doctor told that she has lithium poisoning. History of present illness: Patient stated that she lives with . She denies having any psychiatric problems but records state that she has a history of bipolar disorder and has been on lithium. The dose of her lithium was recently increased. She stated that she was under the care of a psychiatrist Dr. Negrete years ago. She stated had that time she had history of drinking alcohol. She stated she stopped drinking alcohol years ago. She stated she is really pissed off and then started crying over that period. She stated she does not understand why she gets sick like this. Family history: She stated she lives with her . She has 1 daughter who does not live with them. She stated she also has a son who lives with father with. She denied any history of mental illness or suicide in the family. She then stated that she had a nephew who also had a history of alcohol problem and some other psychiatric problem. Medical history: She has a history of high blood pressure and she also takes a blood thinners, she denied being diabetic. Social history: She stated she finished high school education. She does not have any formal college education. 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 She stated that her girlfriend had bipolar disorder. She stated business is now closed down. Substance abuse history: She stated she was drinking alcohol years ago but not anymore. She denies use of any other drugs . History of suicide and homicide: She denied any history of suicide ever. She denied any history of assaultive behavior ever. Legal history: She denied involvement with law or police ever. ALLERGIES: She denied being ALLERGIC to anything. Mental status examination: This 79-year-old female patient had some articulation problems and stutters as well. She stated it all started approximately one week ago. She stated her speech was just fine before that. She is alert and oriented to time place and person. Her appearance is neat and clean. Behavior is cooperative. Her mood and affect is labile. She does not have any hallucinations or delusions. She does not have any loose associations, flight of ideas or any disorder of thought process. She stated that the apple is red color and oranges are round and she can make pie from apple and she can squeeze orange to get juice but she appeared somewhat confused and was not able to do similarities and differences between common objects. When asked to interpret simple proverbs she was able to do it. She stated she has been for 43 years and her does most of the cooking and she does most of the cleaning. She was not able to give me the names of 3 [place] presidents. She was not able to do serial sevens or serial threes. It appears that some of the confusion is still there. Diagnostic impression: [place] toxicity Acute confusional state secondary to lithium toxicity History of bipolar disorder Recommendations: This patient suffered acute lithium toxicity and still has some left over symptoms from that. When her mental status becomes clear she could be discharged home and she is to follow-up with his psychiatrist. She would also benefit from visiting nurse at the home to help her keeping her medications straight. I recommend that she be seen by a psychiatrist one more time prior to discharge to give a psychiatric clearance.
[2020-10-15] MEDS ORDERED: FUROSEMIDE 10 MG/ML 2 ML VIAL IV ONE (12:00)
--- NOTE | 2020-10-15 14:54 | P.PN ---
Subjective Progress Note Date: 10/15/20 No new complaints. Expressive aphasia is improving. Stuttering speech pattern improving. EEG pending. Psych and neuro consults appreciated. Objective - Vital Signs Vital signs: Vital Signs Temp 98 F 10/15/20 11:22 Pulse 61 10/15/20 11:22 Resp 17 10/15/20 11:22 BP 154/74 10/15/20 11:22 Pulse Ox 91 L 10/15/20 11:22 Intake & Output 10/14/20 10/15/20 10/15/20 17:59 06:59 18:59 Intake Total Balance Intake: Oral Other: Voiding Method Toilet # Voids - Exam Gen: awake, alert HEENT: normocephalic, atraumatic, good hearing acuity, moist mucous membranes Resp: good air exchange, breathing comfortably with no accessory muscle use, bib asilar lung crackles CVS: good distal perfusion x 4, regular rate and rhythm without murmurs GI: soft, NTTP, ND : no SPT, no CVAT, crespo catheter not present MSK: no pitting edema, no clubbing Neuro: moving all extremities, following commands, 5 out of 5 muscle strength, expressive aphasia Psych: cooperative, anxious mood - Labs CBC & Chem 7: 10/13/20 05:38 10/13/20 05:38 Assessment and Plan Assessment: 1. Toxic metabolic encephalopathy 2. [place] poisoning 3. COPD without exacerbation 4. History of DVT 5. Hypothyroidism 6. Small cell lung cancer 7. History of atrial flutter 8. Hyperlipidemia 9. Bipolar Disorder 80-year-old woman with a history of COPD, DVT, hypothyroidism, small cell lung c ancer, atrial flutter, hyperlipidemia, bipolar disorder on lithium presented with 1.5 weeks of increasing confusion and expressive aphasia in the background of increased lithium dose with elevated lithium level concerning for toxicity; admitted for evaluation with nephrology as well as further evaluation of encephalopathy for other causes such as stroke or metastasis to the brain. Plan: - admit to telemetry, seizure precautions - neurochecks - MRI Brain w and w/o, pending: to rule out mets to brain vs stroke causing expressive aphasia, no motor weakness --> no infarct, possible brain mass - neurology consult, appreciate recs - EEG, pending - nephrology consult, appreciate recs - IVF: NS 1L bolus in ER --> NS 150cc/hr (held due to increasing hypoxia) - daily lithium level, down to 2.0 on 10/13 --> 1.1 on 10/14 - continue home xanax - will permanently d/c lithium, and have patient seen by psychiatry once AMS resolves/improves - hold zoloft as SSRIs may pre-dispose patients to davida - psych consult for anxiety/bipolar issues, appreciate recs Chronic Conditions: - duonebs PRN, continue home symbicort - continue eliquis - continue home levothyroxine - outpatient oncology follow up for SCLC, r/o mets to brain with MRI - continue atenolol - continue lipitor - continue primidone In speaking with family, I do not think they are at a point where they can discuss code status and GoC earnestly due to patient's mentation, and 's limited insight. I discussed this with the PCP over the phone, and previously both her notes, and oncology's notes reflect that patient is Full Code. Will re-address once mentation clears with patient if able. DVT PPx: on eliquis
[2020-10-16] MEDS: LEVOTHYROXINE 100 MCG TAB PO SCH (05:40)
[2020-10-16] MEDS: atenoloL 50 MG TAB PO SCH (08:23)
[2020-10-16] MEDS: APIXABAN 5 MG TAB PO SCH ×2 (08:23→20:20)
[2020-10-16] MEDS: ALPRAZolam 0.5 MG TAB PO SCH ×3 (08:23→20:20)
[2020-10-16] MEDS: PRIMIDONE 50 MG TAB PO SCH (08:23)
[2020-10-16] MEDS: ATORVASTATIN 20 MG TAB PO SCH (08:23)
[2020-10-16] MEDS ORDERED: FUROSEMIDE 20 MG TAB PO STA (08:55)
--- NOTE | 2020-10-16 09:21 | P.PN ---
Subjective Progress Note Date: 10/16/20 No new complaints today. She is significantly improved in expressive aphasia. Still has mild stuttering, which improves when she is distracted. Pending EEG, likely plan for dispo tomorrow. Still dyspneic on exertion. Objective - Vital Signs Vital signs: Vital Signs Temp 98.3 F 10/16/20 05:30 Pulse 67 10/16/20 05:30 Resp 20 10/16/20 05:30 BP 128/71 10/16/20 05:30 Pulse Ox 98 10/16/20 05:30 Intake & Output 10/15/20 10/16/20 10/16/20 18:59 06:59 18:59 Intake Total 290 Balance 290 Intake: Oral 290 Other: Voiding Method Toilet Toilet # Voids 5 1 1 - Exam Gen: awake, alert HEENT: normocephalic, atraumatic, good hearing acuity, moist mucous membranes Resp: good air exchange, breathing comfortably with no accessory muscle use, bibasilar lung crackles R > L CVS: good distal perfusion x 4, regular rate and rhythm without murmurs GI: soft, NTTP, ND : no SPT, no CVAT, crespo catheter not present MSK: no pitting edema, no clubbing Neuro: moving all extremities, following commands, 5 out of 5 muscle strength, expressive aphasia Psych: cooperative, anxious mood - Labs CBC & Chem 7: 10/13/20 05:38 10/13/20 05:38 Assessment and Plan Assessment: 1. Toxic metabolic encephalopathy 2. [place] poisoning 3. COPD without exacerbation 4. History of DVT 5. Hypothyroidism 6. Small cell lung cancer 7. History of atrial flutter 8. Hyperlipidemia 9. Bipolar Disorder 80-year-old woman with a history of COPD, DVT, hypothyroidism, small cell lung cancer, atrial flutter, hyperlipidemia, bipolar disorder on lithium presented with 1.5 weeks of increasing confusion and expressive aphasia in the background of increased lithium dose with elevated lithium level concerning for toxicity; admitted for evaluation with nephrology as well as further evaluation of encephalopathy for other causes such as stroke or metastasis to the brain. Plan: - admit to telemetry, seizure precautions - neurochecks - MRI Brain w and w/o, pending: to rule out mets to brain vs stroke causing expressive aphasia, no motor weakness --> no infarct, possible brain mass - neurology consult, appreciate recs - EEG, pending - nephrology consult, appreciate recs - IVF: NS 1L bolus in ER --> NS 150cc/hr (held due to increasing hypoxia) - daily lithium level, down to 2.0 on 10/13 --> 1.1 on 10/14 - continue home xanax - will permanently d/c lithium, and have patient seen by psychiatry once AMS resolves/improves - hold zoloft as SSRIs may pre-dispose patients to [facility] - psych consult for anxiety/bipolar issues, appreciate recs Chronic Conditions: - duonebs PRN, continue home symbicort - continue eliquis - continue home levothyroxine - outpatient oncology follow up for SCLC, r/o mets to brain with MRI - continue atenolol - continue lipitor - continue primidone In speaking with family, I do not think they are at a point where they can discuss code status and GoC earnestly due to patient's mentation, and 's limited insight. I discussed this with the PCP over the phone, and previously both her notes, and oncology's notes reflect that patient is Full Code. Will defer to PCP to discuss once she completely recovers from lithium issue and gets her bipolar/anxiety issues under better control. DVT PPx: on eliquis
[2020-10-16] MEDS: SYMBICORT 160-4.5 MCG INHALER INHALATION SCH ×2 (09:28→20:57)
[2020-10-16] MEDS: IPRATROPIUM-ALBUTEROL 3 ML NEB INHALATION PRN (09:28)
--- NOTE | 2020-10-16 17:10 | P.PN ---
Subjective Progress Note Date: 10/16/20 I'm seeing the patient for the first time and the patient was a value by Dr. Cohen for neurological management. Please refer to Dr. Cohen's note for further neurological details. Per the patient nurse that lithium levels has been normalized and the patient condition is improving. She was notified by the patient's who was at bedside that her mentation is improving and she is close to baseline. Her tremor has significantly improved. MRI of the brain that was done on 10/14/2020 is reported as no evidence of acute ischemic event or pathological enhancement throughout the brain parenchyma. Possible small mask developing in the insular cortex and right temporal lobe is more likely artifactual in nature given the lack of visualization on other MRI sequence and the lack of contrast enhancement. 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 Objective - Vital Signs Vital signs: Vital Signs Temp 98.1 F 10/16/20 11:15 Pulse 63 10/16/20 11:15 Resp 20 10/16/20 11:15 BP 108/64 10/16/20 11:15 Pulse Ox 94 L 10/16/20 11:15 Intake & Output 10/15/20 10/16/20 10/16/20 18:59 06:59 18:59 Intake Total 290 Balance 290 Intake: Oral 290 Other: Voiding Method Toilet Toilet # Voids 5 1 1 - Exam Gen.: The patient is reclining in the bed. She is well-nourished, well- developed and in mild distress. The patient however denies anxiety. Neurological examination Mental status: The patient is awake and alert. She is oriented self, place and time. The patient is able to accurately repeat phrases. No further stuttering. At times she is able to speak very clearly. Cranial nerves: Pupils are equal at 3 mm and reactive. Visual hu intact. Extraocular movements are intact. There is no nystagmus. Facial sensation is intact. There is no facial asymmetry. Hearing is mildly to moderated diminished to hand rubs. Uvula and palate are midline. Shoulder shrug is symmetric. Tongue protrudes midline. There is no tremor of the tongue. Motor: Upper extremity strength is symmetric at 4-5/5. The patient is able to raise both of her legs off of the bed. Ankle plantar and dorsiflexors are 5/5. Coordination: There is a slight intention tremor bilaterally. Vbjz-vk-uali testing is intact bilaterally. Deep tendon reflexes: 2-3+/4+ throughout. - Labs CBC & Chem 7: 10/13/20 05:38 10/13/20 05:38 Assessment and Plan Assessment: 1. Toxic encephalopathy secondary to moderate-severe lithium intoxication. 2. Stuttering speech without expressive aphasia. The patient has no difficulty naming objects. When she is distracted, her speech is clear and without stuttering---resolved This speech pattern is likely secondary to anxiety 3. Reported history of bipolar disorder, with additional treatment for anxiety Plan: 1. Await EEG that was ordered by the primary. The EEG was not today because of limited of compounding pharmacy technician. From a neurological standpoint this is not a seizure and likely toxic encephalopathy. 2. Consider the use of a different antidepressant as the combination of lithium and sertraline increases the risk of serotonin syndrome 3. TSH is 1.98 which is normal. 4. Currently her lithium level is 0.6. 5. psychiatry is on board. Defer the rest of the medical management per the primary team. There is no further neurological work-up. Ben Cullen MD Neuro-Hospitalist Time with Patient: Less than 30
[2020-10-16 20:23] VITALS: RESP 18
[2020-10-17] MEDS: LEVOTHYROXINE 100 MCG TAB PO SCH (06:01)
[2020-10-17] MEDS: APIXABAN 5 MG TAB PO SCH (08:24)
[2020-10-17] MEDS: ALPRAZolam 0.5 MG TAB PO SCH (08:24)
[2020-10-17] MEDS: ATORVASTATIN 20 MG TAB PO SCH (08:24)
[2020-10-17] MEDS: atenoloL 50 MG TAB PO SCH (08:24)
[2020-10-17] MEDS: PRIMIDONE 50 MG TAB PO SCH (08:24)
[2020-10-17] MEDS: SYMBICORT 160-4.5 MCG INHALER INHALATION SCH (11:22)
[2020-10-17 11:51] VITALS: BP 150/77; PULSE 65; TEMP 98.1
--- NOTE | 2020-10-17 13:08 | P.PN ---
Progress Note - Text Progress Note Date: 10/17/20 Interval history: Patient was seen today for psychiatric follow-up regarding patient's delirium and lithium toxicity along with bipolar disorder. Patient was seen at the bedside and appeared to be awake today and was attempting to cooperate with pattern chart writer during interview. She did have a noticeable stutter and her voice. Her thought content and process appear to be logical and goal oriented. She was not endorsing any delusions or paranoia today. She spoke about feeling better overall and talked about discharge. She claims that her PCP told her to increase her lithium and she claims she felt sick after and came to the hospital. Patient's lithium level appears to be improving and was last noted on 10/15 to be 0.6. She is denying any manic symptoms at this time and claims that she was able to sleep fairly last night. She admits to fair appetite. She is denying any tremors. She claims her mood and anxiety are "okay". At this time patient denies any suicidal or homicidal ideations intent or plan. Denies any Auditory or visual hallucinations. Patient denies any side effects from the medications and has been compliant with meds. Mental status exam: General Appearance: Patient appears to be elderly, stated age is alert, directable, and cooperative. Behavior: No agitated behavior. Patient is calm and directable Speech: Patient's speech is fluent and nonpressured. Stuttering at times. Mood/Affect: Mood is improving mildly, affect is congruent and constricted. Suicidality/Homicidality: Patient denies having any suicidal or homicidal ideation intent or plan. Perceptions: Patient denies any auditory or visual hallucinations. Though content/process: There is no evidence of any delusional thought content and thought process is linear and goal-directed. Focused on her medications. Memory and concentration: AOX2-3, grossly intact for the purposes of this sessio n Judgment and insight: improving mildly Assessment Delirium, secondary to lithium toxicity History of bipolar disorder Plan: -At this time patient DOES NOT meet criteria for inpatient psychiatric admission. -Would recommend the following medication changes/additions: Restarted lithium however at a lower dose 150 mg twice a day for mood stabilization/bipolar. Can continue Xanax occurring dose. We'll continue holding off on Zoloft at this time. -Spoke with patient in depth about her medication lithium and the need for water and hydration when she is at home to prevent her lithium levels from increasing dramatically in the future. Patient verbally understood and agreed. -Patient will need to do a lithium level blood draw in 1 week post discharge. -oven worker to provide patient with outpatient mental health/psychiatry resources for appropriate follow up upon discharge -Communicated plan to patient's nurse and hospitalist. -Psychiatry will sign off at this time -Please contact with any questions.
--- NOTE | 2020-10-17 14:05 | P.DS ---
Providers Date of admission: 10/12/20 15:41 Expected date of discharge: 10/17/20 Attending physician: Jose Yen MD Consults: 10/12/20 15:41 Consult Physician Urgent Consulting Provider: Allyssa Elise Consult Reason/Comments: Pax toxicity Do you want consulting provider notified?: Yes 10/14/20 14:26 Consult Physician Routine Consulting Provider: Divya Cohen Consult Reason/Comments: Possible mass on MRI, AMS, expressive aphasia Do you want consulting provider notified?: Yes Consult Physician Routine Consulting Provider: Taras Kinney Consult Reason/Comments: Bipolar disorder, anxiety; need alternative to lithium Do you want consulting provider notified?: Yes Primary care physician: DION Jose Hospital Course: 1. Toxic metabolic encephalopathy 2. Pax poisoning 3. COPD without exacerbation 4. History of DVT 5. Hypothyroidism 6. Small cell lung cancer 7. History of atrial flutter 8. Hyperlipidemia 9. Bipolar Disorder 80-year-old woman with a history of COPD, DVT, hypothyroidism, small cell lung cancer, atrial flutter, hyperlipidemia, bipolar disorder on lithium presented with 1.5 weeks of increasing confusion and expressive aphasia in the background of increased lithium dose with elevated lithium level concerning for toxicity; admitted for evaluation with nephrology as well as further evaluation of encephalopathy for other causes such as stroke or metastasis to the brain. MRI of the brain did not demonstrate infarct or mass; neurology consult did not have high suspicion for seizures given strong story of lithium toxicity, therefore, plans for EEG were cancelled. Nephrology recommended aggressive hydration, and lithium level came down quickly given good kidney function. With appropriate lithium level, her symptoms of expressive aphasia improved drastically, however, she still retained a speech pattern of stuttering, which was also improving at time of discharge. Psychiatry consulted on this patient, and recommended down- titration of lithium to 150mg BID on discharge with psychiatry follow up. They agreed with discontinuation of zoloft, and continuing home xanax. I spoke with patient's PCP regarding her hospital course - and that patient would require recheck of lithium level in one week, and psychiatry referral. No other home medications were adjusted during her hospitalization. As a conseque nce of her aggressive IVF to flush out lithium, patient did develop oxygen requirement while at rest which is not her baseline, but this improved with two doses of lasix. Patient continued to have anxious mood throughout hospitalization, which did improve after resuming her home dose of 0.5mg xanax TID, which was initially discontinued on admission. I spoke with PCP about recommendation to titrate this down. In speaking with family, I do not think they are at a point where they can discuss code status and GoC earnestly due to patient's mentation, and 's limited insight. I discussed this with the PCP over the phone, and previously both her notes, and oncology's notes reflect that patient is Full Code. Will defer to PCP to discuss once she completely recovers from lithium issue and gets her bipolar/anxiety issues under better control. I spent 45 minutes coordinating this complex discharge Assessment: Gen: awake, alert HEENT: normocephalic, atraumatic, good hearing acuity, moist mucous membranes Resp: good air exchange, breathing comfortably with no accessory muscle use, bibasilar lung crackles R > L CVS: good distal perfusion x 4, regular rate and rhythm without murmurs GI: soft, NTTP, ND : no SPT, no CVAT, crespo catheter not present MSK: no pitting edema, no clubbing Neuro: moving all extremities, following commands, 5 out of 5 muscle strength, expressive aphasia Psych: cooperative, anxious mood Patient Condition at Discharge: Good Plan - Discharge Summary Discharge Rx Participant: Yes New Discharge Prescriptions: New Pax Carbonate 150 mg PO BID #60 cap Continue Atorvastatin [Lipitor] 20 mg PO DAILY Levothyroxine Sodium [Synthroid] 100 mcg PO DAILY atenoloL [Tenormin] 50 mg PO DAILY Budesonide-Formot 160-4.5 Mcg [Symbicort 160-4.5 Mcg Inhaler] 2 puff INHALATION RT-BID Primidone [Mysoline] 50 mg PO DAILY Apixaban [Eliquis] 5 mg PO BID Albuterol Sulfate [Ventolin HFA] 2 puff INHALATION RT-Q4H PRN PRN Reason: Shortness Of Breath ALPRAZolam [Xanax] 0.5 mg PO TID Discontinued Sertraline [Zoloft] 100 mg PO DAILY Pax Carbonate 300 mg PO BID Discharge Medication List Atorvastatin [Lipitor] 20 mg PO DAILY 02/07/16 [History] Levothyroxine Sodium [Synthroid] 100 mcg PO DAILY 02/07/16 [History] atenoloL [Tenormin] 50 mg PO DAILY 02/07/16 [History] Budesonide-Formot 160-4.5 Mcg [Symbicort 160-4.5 Mcg Inhaler] 2 puff INHALATION RT-BID 06/03/17 [History] Albuterol Sulfate [Ventolin HFA] 2 puff INHALATION RT-Q4H PRN 09/10/20 [History] Apixaban [Eliquis] 5 mg PO BID 09/10/20 [History] Primidone [Mysoline] 50 mg PO DAILY 09/10/20 [History] ALPRAZolam [Xanax] 0.5 mg PO TID 09/22/20 [History] Pax Carbonate 150 mg PO BID #60 cap 10/17/20 [Rx] Follow up Appointment(s)/Referral(s): Reina Clark, DION [Primary Care Provider] - 1-2 days (Please call and schedule a follow up appointment. ) Patient Instructions/Handouts: Pax (By mouth), Altered Mental Status (GEN), Pax Toxicity (DC) Activity/Diet/Wound Care/Special Instructions: Your physician's office will call you with an in person follow up appt and for labs. Please call and schedule an appointment with a psychiatrist as an outpatient from the list you were given. Discharge Disposition: HOME WITH HOME HEALTH SERVICES
--- NOTE | 2020-10-17 15:14 | CDI ---
Documentation Clarification Form Date: 10/17/2020 03:00:00 PM From: Alfreda Reyes RN, CCDS Admit Date: 10/12/2020 03:41:00 PM Patient Name: Margaret Gregg Visit Number: [id number] Discharge Date: ATTENTION: The Clinical Documentation Specialists (CDI) and [facility] Coding Staff appreciate your assistance in clarifying documentation. Please respond to the clarification below the line at the bottom and electronically sign. The CDI & [facility] Coding staff will review the response and follow-up if needed. Please note: Queries are made part of the Legal Health Record. If you have any questions, please contact the author of this message via ITS. Dr. Jose Yen Atrial Flutter is documented in the past medical history. Please render your opinion on the type of atrial flutter if known. History/Risk factors: Atrial Flutter, DVT, Small cell lung cancer. Clinical Indicators: 80-year-old female present with altered mental status. She was ruled in for lithium toxicity. 10/12 Vital signs 116/81 70 18 99.8 94 % RA EKG/telemetry: Normal sinus rhythm at 67 bpm Treatment: Telemetry monitoring Monitor PT/INR Q day x2 Eliquis 5MG PO BID In your professional opinion, in order to capture the severity of condition; can you please clarify the type of Atrial Flutter if known? Typical/Type I Atypical/Type II Other, please specify Unable to determine (Last Revision: November 2017) Unable to determine MTDD
[2020-10-17] MEDS ORDERED: LITHIUM CARBONATE 150 MG CAP PO SCH (21:00)
== END 2020-10-17 15:11 | disposition home health service (06) | DRG 917 ==
LOC: EC 11:47 → 4SSUR 15:41 → 5NMEDONC 20:50
PROVIDERS: ADMIT Internal Medicine; ATTEND Internal Medicine
DX: T43.591A Poisoning by other antipsychotics and neuroleptics, accidental (unintentional), initial encounter (principal); G92 Toxic encephalopathy; C34.90 Malignant neoplasm of unspecified part of unspecified bronchus or lung; I48.92 Unspecified atrial flutter; R47.01 Aphasia; E03.9 Hypothyroidism, unspecified; E78.5 Hyperlipidemia, unspecified; F31.9 Bipolar disorder, unspecified; F41.9 Anxiety disorder, unspecified; R47.82 Fluency disorder in conditions classified elsewhere; G25.0 Essential tremor; I10 Essential (primary) hypertension; I25.10 Atherosclerotic heart disease of native coronary artery without angina pectoris; I48.91 Unspecified atrial fibrillation; J44.9 Chronic obstructive pulmonary disease, unspecified; R63.1 Polydipsia; G43.909 Migraine, unspecified, not intractable, without status migrainosus; R30.0 Dysuria; Z82.3 Family history of stroke; Z81.1 Family history of alcohol abuse and dependence; Z80.1 Family history of malignant neoplasm of trachea, bronchus and lung; Z90.89 Acquired absence of other organs; Z90.49 Acquired absence of other specified parts of digestive tract; Z79.01 Long term (current) use of anticoagulants; Z79.51 Long term (current) use of inhaled steroids; Z79.890 Hormone replacement therapy; Z79.899 Other long term (current) drug therapy; Z86.718 Personal history of other venous thrombosis and embolism; Z87.891 Personal history of nicotine dependence; Z90.710 Acquired absence of both cervix and uterus; Z92.21 Personal history of antineoplastic chemotherapy; Z92.3 Personal history of irradiation; R19.7 Diarrhea, unspecified; Z91.040 Latex allergy status; Z87.01 Personal history of pneumonia (recurrent)
CPT/HCPCS: 36415; 36600; 70450; 70553; 71045; 71046; 80048; 80053; 80178; 80306; 81003; 82805; 83735; 84443; 84484; 85025; 85610; 85730; 87635; 93005; 94640; 94760; 95816; 96360; 96361; 99285

== ENCOUNTER 2020-10-22 09:39 | Inpatient (IN) | payer MEDICARE, BC ==
[2020-10-22] MEDS ORDERED: SODIUM CHLORIDE 0.9% 1,000 ML IV STA (10:27)
[2020-10-22 10:35] LABS: Basophils % (A) 1 %; Eosinophils # (A) 0.1 k/uL (0-0.7); Eosinophils % (A) 2 %; HCT 44.4 % (34.0-46.0); HGB 14.7 gm/dL (11.4-16.0); Lymphocytes # (A) 0.4 k/uL (1.0-4.8); Lymphocytes % (A) 7 %; MCH 32.2 pg (25.0-35.0); MCHC 33.2 g/dL (31.0-37.0); Mean Platelet Volume 7.2; Monocytes # (A) 0.5 k/uL (0-1.0); Monocytes % (A) 10 %; Neutrophils # (A) 4.3 k/uL (1.3-7.7); Neutrophils % (A) 79 %; RBC 4.57 m/uL (3.80-5.40); RDW 13.4 % (11.5-15.5); WBC 5.5 k/uL (3.8-10.6)
[2020-10-22 10:41] LABS: Platelet Count 172 k/uL (150-450)
[2020-10-22 10:46] LABS: Calcium 9.7 mg/dL (8.4-10.2); Potassium 4.2 mmol/L (3.5-5.1); Total Bilirubin 0.5 mg/dL (0.2-1.3); Total Protein 6.3 g/dL (6.3-8.2)
[2020-10-22 10:55] LABS: Lithium 0.5 mmol/L
--- NOTE | 2020-10-22 11:12 | XR ---
EXAMINATION TYPE: XR chest 2V DATE OF EXAM: 10/22/2020 COMPARISON: 10/13/2020 INDICATION: Mental status, short of breath TECHNIQUE: Frontal and lateral views of the chest are obtained. FINDINGS: The heart size is normal. The pulmonary vasculature is somewhat prominent. There is some fullness in the hilar regions. Correla te for some pulmonary hypertension.. Mild nonspecific increased lung markings may be present.. IMPRESSION: 1. Mild increased lung markings within the lung hu. Correlate for volume overload and pulmonary e roel. Atypical pneumonia should be considered. 2. There is some prominence of pulmonary vascular markings and fullness at the main pulmonary arterie s. Consider pulmonary hypertension.
[2020-10-22 11:28] LABS: Appearance,Urine Clear (Clear); Bilirubin,Urine Negative (Negative); Blood,Urine Negative (Negative); Color,Urine Light Yellow; Glucose,Urine (UA) Negative (Negative); Ketones,Urine Negative (Negative); Leukocyte Esterase,Urine Negative (Negative); Nitrite,Urine Negative (Negative); Protein,Urine Negative (Negative); Specific Gravity,Urine 1.006 (1.001-1.035); Urobilinogen,Urine <2.0 mg/dL (<2.0)
--- NOTE | 2020-10-22 11:37 | CT ---
EXAMINATION TYPE: CT brain wo con DATE OF EXAM: 10/22/2020 COMPARISON: 10/12/2020, MRI brain 10/13/2020 INDICATION: Confusion DLP: 1127.54 mGycm, Automated exposure control for dose reduction was used. CONTRAST: None CT of the brain is performed utilizing 3 mm thick sections through the posterior fossa and 3 mm thick sections through the remaining calvarium. Study is performed within 24 hours of arrival to the hosp ital. No abnormal hyperdensity is present to suggest an acute intracranial hemorrhage. No mass lesion is evident. Some subtle intermediate density may be along the anterior right frontal r egion. This area is stable from the comparison. Example image 201 image 37. No significant mass affec t on the adjacent brain is evident. This area is nonspecific on the MRI brain. No acute infarcts are evident. Ventricles and sulci are appropriate for the patient age. Paranasal sinuses and mastoid air cells within the noyht-af-kgop are clear. IMPRESSIONS: 1. No suspicious acute interval changes
[2020-10-22 11:39] LABS: Amphetamine Screen,Urine Not Detected (NotDetected); Benzodiazepines Screen,Urine Detected (NotDetected); Cocaine Screen,Urine Not Detected (NotDetected); Methadone Screen, Urine Not Detected (NotDetected); Opiate Screen,Urine Not Detected (NotDetected); Phencyclidine Screen,Urine Not Detected (NotDetected); Tricyclic Antidepressant,Urine Not Detected (NotDetected); Urn Cannabinoid Scrn Not Detected (NotDetected)
[2020-10-22 11:39] LABS: Partial Thromboplastin Time 24.7 sec (22.0-30.0); Prothrombin Time 10.3 sec (9.0-12.0)
[2020-10-22 11:41] LABS: Barbiturate Screen,Urine Detected (NotDetected); Oxycodone Screen, Urine Not Detected (NotDetected)
--- NOTE | 2020-10-22 12:33 | ED ---
Neuro HPI - General Chief Complaint: Neuro Symptoms/Deficit Stated Complaint: Confused Time Seen by Provider: 10/22/20 10:20 Source: patient, RN notes reviewed Mode of arrival: ambulatory Limitations: no limitations - History of Present Illness Is the patient presenting with stroke symptoms?: No Initial Comments: This is a 72-year-old female who presents with complaints of confusion is For the last day or so her speech is off decreased mental capabilities per her and her . No focal weakness fevers chills nausea vomiting sweats no trauma. Patient did have her insulin presentation recently when she had a elevated lithium level. The current complaints or modifying factors - Related Data Home Medications: Home Medications Medication Instructions Recorded Confirmed Atorvastatin [Lipitor] 20 mg PO DAILY 02/07/16 10/22/20 Levothyroxine Sodium [Synthroid] 100 mcg PO DAILY 02/07/16 10/22/20 atenoloL [Tenormin] 50 mg PO DAILY 02/07/16 10/22/20 Budesonide-Formot 160-4.5 Mcg 2 puff INHALATION RT-BID 06/03/17 10/22/20 [Symbicort 160-4.5 Mcg Inhaler] Albuterol Sulfate [Ventolin HFA] 2 puff INHALATION RT-Q4H PRN 09/10/20 10/22/20 Apixaban [Eliquis] 5 mg PO BID 09/10/20 10/22/20 Primidone [Mysoline] 50 mg PO DAILY 09/10/20 10/22/20 ALPRAZolam [Xanax] 0.5 mg PO TID 09/22/20 10/22/20 Previous Rx's Medication Instructions Recorded [place] Carbonate 150 mg PO BID #60 cap 10/17/20 Allergies/Adverse Reactions: Allergies Allergy/AdvReac Type Severity Reaction Status Date / Time latex Allergy Swelling Verified 10/22/20 10:56 Review of Systems ROS Statement: Those systems with pertinent positive or pertinent negative responses have been documented in the HPI. ROS Other: All systems not noted in ROS Statement are negative. General Exam - General Exam Comments Initial Comments: This is a well-developed asthenic appearing female who is awake alert oriented 3 Limitations: no limitations General appearance: alert, in no apparent distress Head exam: Present: atraumatic, normocephalic, normal inspection Eye exam: Present: normal appearance, PERRL, EOMI. Absent: scleral icterus, conjunctival injection, periorbital swelling ENT exam: Present: mucous membranes dry Neck exam: Present: normal inspection. Absent: tenderness, meningismus, lymphadenopathy Respiratory exam: Present: normal lung sounds bilaterally. Absent: respiratory distress, wheezes, rales, rhonchi, stridor Cardiovascular Exam: Present: regular rate, normal rhythm, normal heart sounds. Absent: systolic murmur, diastolic murmur, rubs, gallop, clicks GI/Abdominal exam: Present: soft, normal bowel sounds. Absent: distended, tenderness, guarding, rebound, rigid Extremities exam: Present: normal inspection, full ROM, normal capillary refill. Absent: tenderness, pedal edema, joint swelling, calf tenderness Back exam: Present: normal inspection Neurological exam: Present: alert, oriented X3, CN II-XII intact Psychiatric exam: Present: normal affect, normal mood Skin exam: Present: warm, dry, intact, normal color. Absent: rash Stroke MDM - Lab Data Result diagrams: 10/22/20 10:29 10/22/20 10:28 Lab Results 10/22/20 10/22/20 10/22/20 Range/Units 10:28 10:28 10:29 WBC 5.5 (3.8-10.6) k/uL RBC 4.57 (3.80-5.40) m/uL Hgb 14.7 (11.4-16.0) gm/dL Hct 44.4 (34.0-46.0) % MCV 97.0 (80.0-100.0) fL MCH 32.2 (25.0-35.0) pg MCHC 33.2 (31.0-37.0) g/dL RDW 13.4 (11.5-15.5) % Plt Count 172 D (150-450) k/uL MPV 7.2 Neutrophils % 79 % Lymphocytes % 7 % Monocytes % 10 % Eosinophils % 2 % Basophils % 1 % Neutrophils # 4.3 (1.3-7.7) k/uL Lymphocytes # 0.4 L (1.0-4.8) k/uL Monocytes # 0.5 (0-1.0) k/uL Eosinophils # 0.1 (0-0.7) k/uL Basophils # 0.0 (0-0.2) k/uL PT (9.0-12.0) sec INR (<1.2) APTT (22.0-30.0) sec Sodium 140 (137-145) mmol/L Potassium 4.2 (3.5-5.1) mmol/L Chloride 106 (98-107) mmol/L Carbon Dioxide 29 (22-30) mmol/L Anion Gap 5 mmol/L BUN 11 (7-17) mg/dL Creatinine 0.75 (0.52-1.04) mg/dL Est GFR (CKD-EPI)AfAm 88 (>60 ml/min/1.73 sqM) Est GFR (CKD-EPI)NonAf 77 (>60 ml/min/1.73 sqM) Glucose 117 H (74-99) mg/dL Calcium 9.7 (8.4-10.2) mg/dL Total Bilirubin 0.5 (0.2-1.3) mg/dL AST 22 (14-36) U/L ALT 15 (4-34) U/L Alkaline Phosphatase 106 (38-126) U/L Ammonia <9 (<30) umol/L Creatine Kinase 29 L (30-135) U/L Troponin I (0.000-0.034) ng/mL NT-Pro-B Natriuret Pep pg/mL Total Protein 6.3 (6.3-8.2) g/dL Albumin 4.0 (3.5-5.0) g/dL Urine Color Urine Appearance (Clear) Urine pH (5.0-8.0) Ur Specific [place] (1.001-1.035) Urine Protein (Negative) Urine Glucose (UA) (Negative) Urine Ketones (Negative) Urine Blood (Negative) Urine Nitrite (Negative) Urine Bilirubin (Negative) Urine Urobilinogen (<2.0) mg/dL Ur Leukocyte Esterase (Negative) Urine Opiates Screen (NotDetected) Ur Oxycodone Screen (NotDetected) Urine Methadone Screen (NotDetected) Ur Propoxyphene Screen (NotDetected) Ur Barbiturates Screen (NotDetected) U Tricyclic Antidepress (NotDetected) Ur Phencyclidine Scrn (NotDetected) Ur Amphetamines Screen (NotDetected) U Methamphetamines Scrn (NotDetected) U Benzodiazepines Scrn (NotDetected) [place] 0.5 mmol/L Urine Cocaine Screen (NotDetected) U Marijuana (THC) Screen (NotDetected) 10/22/20 10/22/20 10/22/20 Range/Units 10:29 10:29 11:11 WBC (3.8-10.6) k/uL RBC (3.80-5.40) m/uL Hgb (11.4-16.0) gm/dL Hct (34.0-46.0) % MCV (80.0-100.0) fL MCH (25.0-35.0) pg MCHC (31.0-37.0) g/dL RDW (11.5-15.5) % Plt Count (150-450) k/uL MPV Neutrophils % % Lymphocytes % % Monocytes % % Eosinophils % % Basophils % % Neutrophils # (1.3-7.7) k/uL Lymphocytes # (1.0-4.8) k/uL Monocytes # (0-1.0) k/uL Eosinophils # (0-0.7) k/uL Basophils # (0-0.2) k/uL PT 10.3 (9.0-12.0) sec INR 1.0 (<1.2) APTT 24.7 (22.0-30.0) sec Sodium (137-145) mmol/L Potassium (3.5-5.1) mmol/L Chloride (98-107) mmol/L Carbon Dioxide (22-30) mmol/L Anion Gap mmol/L BUN (7-17) mg/dL Creatinine (0.52-1.04) mg/dL Est GFR (CKD-EPI)AfAm (>60 ml/min/1.73 sqM) Est GFR (CKD-EPI)NonAf (>60 ml/min/1.73 sqM) Glucose (74-99) mg/dL Calcium (8.4-10.2) mg/dL Total Bilirubin (0.2-1.3) mg/dL AST (14-36) U/L ALT (4-34) U/L Alkaline Phosphatase (38-126) U/L Ammonia (<30) umol/L Creatine Kinase (30-135) U/L Troponin I <0.012 (0.000-0.034) ng/mL NT-Pro-B Natriuret Pep 117 pg/mL Total Protein (6.3-8.2) g/dL Albumin (3.5-5.0) g/dL Urine Color Urine Appearance (Clear) Urine pH (5.0-8.0) Ur Specific [place] (1.001-1.035) Urine Protein (Negative) Urine Glucose (UA) (Negative) Urine Ketones (Negative) Urine Blood (Negative) Urine Nitrite (Negative) Urine Bilirubin (Negative) Urine Urobilinogen (<2.0) mg/dL Ur Leukocyte Esterase (Negative) Urine Opiates Screen (NotDetected) Ur Oxycodone Screen (NotDetected) Urine Methadone Screen (NotDetected) Ur Propoxyphene Screen (NotDetected) Ur Barbiturates Screen (NotDetected) U Tricyclic Antidepress (NotDetected) Ur Phencyclidine Scrn (NotDetected) Ur Amphetamines Screen (NotDetected) U Methamphetamines Scrn (NotDetected) U Benzodiazepines Scrn (NotDetected) [place] mmol/L Urine Cocaine Screen (NotDetected) U Marijuana (THC) Screen (NotDetected) 10/22/20 Range/Units 11:15 WBC (3.8-10.6) k/uL RBC (3.80-5.40) m/uL Hgb (11.4-16.0) gm/dL Hct (34.0-46.0) % MCV (80.0-100.0) fL MCH (25.0-35.0) pg MCHC (31.0-37.0) g/dL RDW (11.5-15.5) % Plt Count (150-450) k/uL MPV Neutrophils % % Lymphocytes % % Monocytes % % Eosinophils % % Basophils % % Neutrophils # (1.3-7.7) k/uL Lymphocytes # (1.0-4.8) k/uL Monocytes # (0-1.0) k/uL Eosinophils # (0-0.7) k/uL Basophils # (0-0.2) k/uL PT (9.0-12.0) sec INR (<1.2) APTT (22.0-30.0) sec Sodium (137-145) mmol/L Potassium (3.5-5.1) mmol/L Chloride (98-107) mmol/L Carbon Dioxide (22-30) mmol/L Anion Gap mmol/L BUN (7-17) mg/dL Creatinine (0.52-1.04) mg/dL Est GFR (CKD-EPI)AfAm (>60 ml/min/1.73 sqM) Est GFR (CKD-EPI)NonAf (>60 ml/min/1.73 sqM) Glucose (74-99) mg/dL Calcium (8.4-10.2) mg/dL Total Bilirubin (0.2-1.3) mg/dL AST (14-36) U/L ALT (4-34) U/L Alkaline Phosphatase (38-126) U/L Ammonia (<30) umol/L Creatine Kinase (30-135) U/L Troponin I (0.000-0.034) ng/mL NT-Pro-B Natriuret Pep pg/mL Total Protein (6.3-8.2) g/dL Albumin (3.5-5.0) g/dL Urine Color Light Yellow Urine Appearance Clear (Clear) Urine pH 7.0 (5.0-8.0) Ur Specific [place] 1.006 (1.001-1.035) Urine Protein Negative (Negative) Urine Glucose (UA) Negative (Negative) Urine Ketones Negative (Negative) Urine Blood Negative (Negative) Urine Nitrite Negative (Negative) Urine Bilirubin Negative (Negative) Urine Urobilinogen <2.0 (<2.0) mg/dL Ur Leukocyte Esterase Negative (Negative) Urine Opiates Screen Not Detected (NotDetected) Ur Oxycodone Screen Not Detected (NotDetected) Urine Methadone Screen Not Detected (NotDetected) Ur Propoxyphene Screen Not Detected (NotDetected) Ur Barbiturates Screen Detected H (NotDetected) U Tricyclic Antidepress Not Detected (NotDetected) Ur Phencyclidine Scrn Not Detected (NotDetected) Ur Amphetamines Screen Not Detected (NotDetected) U Methamphetamines Scrn Not Detected (NotDetected) U Benzodiazepines Scrn Detected H (NotDetected) [place] mmol/L Urine Cocaine Screen Not Detected (NotDetected) U Marijuana (THC) Screen Not Detected (NotDetected) - NIH Stroke Scale 1a. Level of Consciousness: (0) alert 1b. LOC Questions: (0) answers correctly 1c. LOC Commands: (0) performs tasks correctly 2. Best Gaze: (0) normal 3. Visual: (0) no visual loss 4. Facial Palsy: (0) normal symmetrical movement 5a. Motor Arm Left: (0) no drift 5b. Motor Arm Right: (0) no drift 6a. Motor Leg Left: (0) no drift 6b. Motor Leg Right: (0) no drift 7. Limb Ataxia: (0) absent 8. Sensory: (0) normal 9. Best Language: (0) no aphasia 10. Dysarthria: (0) normal 11. Extinction/Inattention: (0) no abnormality - Thrombolytic Inclusion/Exclusion Thrombolytic Exclusion Criteria: Symptom Onset > 4.5 Hours - Medical Decision Making The patient continues be somewhat confused though she appears be alert oriented 3 and did discuss case with her family as well as with DrGeorgi to cecal patient be admitted with neurological consultation as well as psychiatric consultation. - EKG Data -: EKG Interpreted by Me EKG shows normal: sinus rhythm (Sinus rhythm a 65. We'll 148 QRS duration 82 QT since QTC 398/413 nonspecific T-wave configuration) Past Medical History Past Medical History: Atrial Flutter, Cancer, COPD, Deep Vein Thrombosis (DVT), Hyperlipidemia, Osteoarthritis (OA), Pneumonia, Thyroid Disorder Additional Past Medical History / Comment(s): Small cell lung cancer, details discussed above treated with chemoradiation therapy, right-sided pleural effusion postthoracentesis, history of difficulty in swallowing with previous aspiration back in 2017 following her cancer treatment, history of right carotid artery disease, history of right upper extremity DVT, hyperlipidemia, hype rtension, hypothyroidism, COPD. She also has history of migraines. ? Essential tremor History of Any Multi-Drug Resistant Organisms: None Reported Past Surgical History: Adenoidectomy, Appendectomy, Hysterectomy, Tonsillectomy Additional Past Surgical History / Comment(s): colonoscopy, CORE BX lt breast bx x3 has markers in place. rt hand sx to repair after injury-has limited strength in rt hand, LEFT PYELOPLASTY WITH JJ CATHETER Past Anesthesia/Blood Transfusion Reactions: No Reported Reaction Past Psychological History: Anxiety, Depression Smoking Status: Former smoker Past Alcohol Use History: None Reported Past Drug Use History: None Reported - Past Family History Father Additional Family Medical History / Comment(s): at age 48 from cerebral hemorrage Mother Family Medical History: Cancer Additional Family Medical History / Comment(s): LUNG CANCER Sister(s) Family Medical History: Cancer Additional Family Medical History / Comment(s): LUNG CANCER Course Vital Signs 10/22/20 10/22/20 09:41 10:05 Temperature 97.7 F Pulse Rate 72 65 Respiratory 18 16 Rate Blood Pressure 144/73 120/67 O2 Sat by Pulse 94 L 96 Oximetry Disposition Clinical Impression: Acute confusional state Disposition: ADMITTED IP TO THIS HOSP Condition: Fair Referrals: Reina Clark NPC [Primary Care Provider] - 1-2 days
[2020-10-22] MEDS ORDERED: NALOXONE 0.4 MG/ML 1 ML VIAL IV PRN (14:34)
[2020-10-22] MEDS ORDERED: SODIUM CHLORIDE 0.9% 1,000 ML IV SCH (14:45)
[2020-10-22] MEDS: ALPRAZolam 0.5 MG TAB PO SCH ×2 (14:55→22:18)
[2020-10-22] MEDS: SYMBICORT 160-4.5 MCG INHALER INHALATION SCH (16:53)
[2020-10-22] MEDS: ALBUTEROL NEBULIZED 2.5 MG/3 ML INHALATION PRN (16:53)
[2020-10-22] MEDS ORDERED: LORazepam 2 MG/ML INJ IV PRN (17:03)
--- NOTE | 2020-10-22 18:27 | P.HPIM ---
<Saúl Olson - Last Filed: 10/22/20 17:27> History of Present Illness H&P Date: 10/22/20 Chief Complaint: Confusion and changes in speech 2 days History of presenting illness: Patient is a 80-year-old female with a past medical history of COPD home oxygen dependent on 2 L, atrial fibrillation/flutter with previous DVTs on Eliquis, small cell lung cancer completed chemotherapy and radiation therapy almost 5 years ago and has since been in remission, and bipolar disorder on lithium who presented to [facility] with her whom reported patient was having increased confusion/changes in mental status along with changes in her speech over the past couple days. Patient was seen and fully evaluated in the emergency department. A computed tomography scan without contrast was completed of brain and was negative for acute intracranial process showing no suspicious acute interval changes. EKG showing normal sinus rhythm at 65 bpm with T-wave inversion in anterioseptal leads aVR, V1, V2, and V3 which is changed from previous EKG obtained on 10/12/20. X-ray revealed mild increased lung markings within the lung hu concerning for possible fluid volume overload and pulmonary edema versus atypical pneumonia accompanied by prominence of pulmonary vascular markings and fullness at the main pulmonary arteries concerning for pulmonary hypertension. Labs: CBC, BMP, and coags unremarkable. Troponin normal findings at < 0.012. Urinalysis negative for blood, protein, ketones, or infection. Urine drug screen positive for barbiturates and benzodiazepines. [place] level normal findings at 0.5. Patient being admitted under our services for acute alteration in mental status and further neurological workup. Upon assessment patient currently alert and oriented to person, place, time, and situation. She had moderate anomic aphasia with periods of stuttering. Patient and her report her difficulties with speech and word finding began approximately 2-3 weeks ago and have progressively worsened. Patient reports that she just does not feel like herself and has been feeling extremely anxious and has had a very hard time finding words. Patient reports this is very frustrating and difficult for her.. Pt's reports that she is very anxious and her emotions are "all over the place" stating that he can say something funny and she will cry or something sad and she will laugh. Patient denies having any fevers, chills, diaphoresis, headache, lightheadedness, dizziness, changes in her vision or hearing, dysphagia, chest pain, palpitations, shortness of breath, increases in her changes to chronic cough, abdominal pain, nausea, vomiting, changes in her difficulties with urinary or bowel function, or any other complaints at this time. Review of systems: Pertinent positives and negatives as discussed in HPI, a complete review of systems was performed and all other systems are negative. Physical exam: General: Non toxic, no distress, appears at stated age Derm: Warm, dry Head: Atraumatic, normocephalic, symmetric Eyes: EOMI with no nystagmus, Pupils slightly unequal with left pupil 2 mm and right pupil 1 mm. No lid lag, anicteric sclera Mouth: No lip lesion, mucus membranes moist Cardiovascular: S1S2 normal with regular rate and rhythm. no murmur, gallop, or rub. Positive posterior tibial pulses bilaterally, no lower extremity edema. Lungs: Respirations even, regular, and unlabored on 2 L O2 via nasal cannula. Soft expiratory wheezes present. No rales or rhonchi. No accessory muscle usage. Abdominal: Soft, nontender to palpation, no guarding, no appreciable organomegaly Ext: no gross muscle atrophy, no edema, no contractures Neuro: GCS 15. Cranial nerves II through XII intact. Full range of motion of upper and lower extremities intact. Movement and strength equal and strong to bilateral upper and lower extremities. Sensation intact. Anomic aphasia present. Impaired proprioception with abnormal finger to nose and abnormal repetitive movement examination. Normal [id number]. Psych: Alert, oriented, appropriate affect Assessment and Plan of Care: Anomic aphasia with impaired proprioception -MRI brain with and without contrast -Neuro checks every 4 hours -Consult to neurology -Consult speech therapy -Consult PT/OT -Fall precautions EKG changes, T-wave inversion anterioseptal leads -EKG showing normal sinus rhythm at 65 bpm with T-wave inversion in anterioseptal leads aVR, V1, V2, and V3 which is changed from previous EKG obtained on 10/12/20. -Troponin < 0.012. ProBNP - EKG showing normal sinus rhythm at 65 bpm with T-wave inversion in anterior septal leads aVR, V1, V2, and V3 which is changed from previous EKG obtained on 10/12/20. -Cardiology consult placed for closer evaluation. -Trend troponins every 3 hours 2. -Patient denies cardiac complaints at this time. -Continue daily Eliquis, atenolol, and atorvastatin. COPD not in acute exacerbation: Home Oxygen Independent on 2 L -Continue oxygen, titrate as needed to maintain SpO2 equal to or greater than 92%. -Continue Symbicort. -Bronchodilator protocol with albuterol nebulizers every 4 hours as needed for shortness of breath and/or wheezing. Paroxysmal Atrial fibrillation/flutter -Continue anticoagulation with Eliquis. Hypertension -Monitor vital signs and Continue daily medication management with atenolol. Hyperlipidemia -Continue daily medication management with atorvastatin 20 mg nightly. Bipolar disorder -Continue daily home medication regimen with primidone, lithium, and Xanax. -[place] level normal findings at 0.5. -Psychiatry consulted for psychiatric medication management. History of small cell lung cancer in remission. The patient is admitted with an anticipated left than 2 midnight stay for evaluation of reports of alteration in mental status accompanied by anomic aphasia with impaired proprioception. Surrogate decision-maker: Patient's , Hermelindo Gregg CODE STATUS: Full code DVT prophylaxis: Eliquis Discussed with: Patient, RN, and patient's -Hermelindo Anticipated discharge date: 1-[address]: Home A total of 45 minutes was spent on the care of this complex patient more than 50% of the time was spent in counseling and care coordination. Past Medical History Past Medical History: Atrial Flutter, Cancer, COPD, Deep Vein Thrombosis (DVT), Hyperlipidemia, Osteoarthritis (OA), Pneumonia, Thyroid Disorder Additional Past Medical History / Comment(s): Small cell lung cancer, details discussed above treated with chemoradiation therapy, right-sided pleural ef fusion postthoracentesis, history of difficulty in swallowing with previous aspiration back in 2017 following her cancer treatment, history of right carotid artery disease, history of right upper extremity DVT, hyperlipidemia, hypertension, hypothyroidism, COPD. She also has history of migraines. ? Essential tremor History of Any Multi-Drug Resistant Organisms: None Reported Past Surgical History: Adenoidectomy, Appendectomy, Hysterectomy, Tonsillectomy Additional Past Surgical History / Comment(s): colonoscopy, CORE BX lt breast bx x3 has markers in place. rt hand sx to repair after injury-has limited strength in rt hand, LEFT PYELOPLASTY WITH JJ CATHETER Past Anesthesia/Blood Transfusion Reactions: No Reported Reaction Past Psychological History: Anxiety, Depression Smoking Status: Former smoker Past Alcohol Use History: None Reported Past Drug Use History: None Reported - Past Family History Father Additional Family Medical History / Comment(s): at age 48 from cerebral hemorrage Mother Family Medical History: Cancer Additional Family Medical History / Comment(s): LUNG CANCER Sister(s) Family Medical History: Cancer Additional Family Medical History / Comment(s): LUNG CANCER Medications and Allergies Home Medications Medication Instructions Recorded Confirmed Type Atorvastatin [Lipitor] 20 mg PO DAILY 02/07/16 10/22/20 History Levothyroxine Sodium [Synthroid] 100 mcg PO DAILY 02/07/16 10/22/20 History atenoloL [Tenormin] 50 mg PO DAILY 02/07/16 10/22/20 History Budesonide-Formot 160-4.5 Mcg 2 puff INHALATION RT-BID 06/03/17 10/22/20 History [Symbicort 160-4.5 Mcg Inhaler] Albuterol Sulfate [Ventolin HFA] 2 puff INHALATION RT-Q4H PRN 09/10/20 10/22/20 History Apixaban [Eliquis] 5 mg PO BID 09/10/20 10/22/20 History Primidone [Mysoline] 50 mg PO DAILY 09/10/20 10/22/20 History ALPRAZolam [Xanax] 0.5 mg PO TID 09/22/20 10/22/20 History [place] Carbonate 150 mg PO BID #60 cap 10/17/20 10/22/20 Rx Allergies Allergy/AdvReac Type Severity Reaction Status Date / Time latex Allergy Swelling Verified 10/22/20 10:56 Physical Exam Vitals: Vital Signs Temp Pulse Resp BP Pulse Ox 10/22/20 10:05 65 16 120/67 96 10/22/20 09:41 97.7 F 72 18 144/73 94 L Intake and Output 10/21/20 10/22/20 10/22/20 22:59 06:59 14:59 Other: Weight 61.235 kg Results CBC & Chem 7: 10/22/20 10:29 10/22/20 10:28 Labs: Abnormal Lab Results - Last 24 Hours (Table) 10/22/20 10/22/20 10/22/20 Range/Units 10:28 10:29 11:15 Lymphocytes # 0.4 L (1.0-4.8) k/uL Glucose 117 H (74-99) mg/dL Creatine Kinase 29 L (30-135) U/L Ur Barbiturates Screen Detected H (NotDetected) U Benzodiazepines Scrn Detected H (NotDetected) <Radha Shoemaker - Last Filed: 10/22/20 20:29> Physical Exam Osteopathic Statement: *. No significant issues noted on an osteopathic structural exam other than those noted in the History and Physical/Consult. Vitals: Vital Signs Temp Pulse Pulse Resp BP BP Pulse Ox 10/22/20 17:15 70 10/22/20 17:08 70 96 10/22/20 15:40 98.3 F 68 16 138/75 96 10/22/20 14:55 70 16 143/86 99 10/22/20 10:05 65 16 120/67 96 10/22/20 09:41 97.7 F 72 18 144/73 94 L Intake and Output 10/22/20 10/22/20 10/22/20 06:59 14:59 22:59 Other: Weight 61.235 kg 61.235 kg Results CBC & Chem 7: 10/22/20 10:29 10/22/20 10:28 Labs: Abnormal Lab Results - Last 24 Hours (Table) 10/22/20 10/22/20 10/22/20 Range/Units 10:28 10:29 11:15 Lymphocytes # 0.4 L (1.0-4.8) k/uL Glucose 117 H (74-99) mg/dL Creatine Kinase 29 L (30-135) U/L Ur Barbiturates Screen Detected H (NotDetected) U Benzodiazepines Scrn Detected H (NotDetected) Assessment and Plan Assessment: Patient seen and examined independently. Patient was also seen by Saúl Olson NP and case was discussed. I am in agreement with subjective, physical exam, assessment and plan as written above and amended below. Patient reports that she has had some difficulty inking over the last several days, she reports that she frequently rate asked her questions and have a hard time remembering answers, she also reports that she is having difficulty with word finding and speaking. General: non toxic, no distress, appears at stated age Derm: warm, dry Head: atraumatic, normocephalic, symmetric Eyes: EOMI, no lid lag, anicteric sclera Mouth: no lip lesion, mucus membranes moist Cardiovascular: S1S2 reg, no murmur, positive posterior tibial pulse bilateral, Lungs: CTA bilateral, no rhonchi, no rales , no accessory muscle use Ext: no gross muscle atrophy, no edema, no contractures Neuro: CN II-XI grossly intact Light touch intact all 4 extremities Muscle strength 5 out of 5 in bilateral upper and lower extremities Bcco-wv-bwly performed without difficulty Poor finger to nose testing Positive dysdiadochokinesis Swinging flashlight test reveals an afferent pupilary defect on the right Slowed speech pattern Psych: Alert, oriented, appropriate affect Word finding difficulties associated with poor coordination -MRI brain -Neurology consultation -Reassured patient currently do not see indication for EEG.
[2020-10-22] MEDS: APIXABAN 5 MG TAB PO SCH (22:18)
[2020-10-22] MEDS: LITHIUM CARBONATE 150 MG CAP PO SCH (23:00)
[2020-10-23] MEDS: LEVOTHYROXINE 100 MCG TAB PO SCH (05:58)
[2020-10-23] MEDS: ALBUTEROL NEBULIZED 2.5 MG/3 ML INHALATION PRN (07:13)
[2020-10-23] MEDS: SYMBICORT 160-4.5 MCG INHALER INHALATION SCH ×2 (07:14→20:12)
[2020-10-23] MEDS: LITHIUM CARBONATE 150 MG CAP PO SCH (08:29)
[2020-10-23] MEDS: APIXABAN 5 MG TAB PO SCH ×2 (08:29→21:18)
[2020-10-23] MEDS: atenoloL 50 MG TAB PO SCH (08:29)
[2020-10-23] MEDS: ALPRAZolam 0.5 MG TAB PO SCH (08:29)
[2020-10-23] MEDS: ATORVASTATIN 20 MG TAB PO SCH (08:29)
[2020-10-23] MEDS: PRIMIDONE 50 MG TAB PO SCH (09:08)
--- NOTE | 2020-10-23 10:58 | P.PN ---
<Saúl Olson - Last Filed: 10/23/20 12:07> Subjective Progress Note Date: 10/23/20 Hospital course: Patient is a 80-year-old female with a past medical history of COPD home oxygen dependent on 2 L, atrial fibrillation/flutter with previous DVTs on Eliquis, small cell lung cancer completed chemotherapy and radiation therapy almost 5 years ago and has since been in remission, and bipolar disorder on lithium who presented to [facility] with her whom reported patient was having increased confusion/changes in mental status along with changes in her speech over the past couple days. Patient was seen and fully evaluated in the emergency department. A computed tomography scan without contrast was completed of brain and was negative for acute intracranial process showing no suspicious acute interval changes. EKG showing normal sinus rhythm at 65 bpm with T-wave inversion in anterioseptal leads aVR, V1, V2, and V3 which is changed from previous EKG obtained on 10/12/20. X-ray revealed mild increased lung markings within the lung hu concerning for possible fluid volume overload and pulmonary edema versus atypical pneumonia accompanied by prominence of pulmonary vascular markings and fullness at the main pulmonary arteries concerning for pulmonary hypertension. Labs: CBC, BMP, and coags unremarkable. Troponin normal findings at < 0.012. Urinalysis negative for blood, protein, ketones, or infection. Urine drug screen positive for barbiturates and benzodiazepines. Paullina level normal findings at 0.5. Patient had recent admission for similar complaints from 10/12/20 through 10/17/20 in which she was diagnosed and treated for lithium toxicity and discharged home. Pt currently being admitted under our services for acute alteration in mental status and further neurological workup. MRI scheduled for 9:15 AM. Physical exam: Patient seen and evaluated at the bedside on 10/23/20. She was sitting up on the edge of her bed. She continues to have difficulties finding words, stuttering, as well as cognitive changes and difficulties with her memory. This morning, during our conversation, patient stopped speaking midsentence reporting she could not remember what we are talking about. Patient was noted to talk cognitively at times and then simply repeat similar questions over again. Currently patient denies having any headache, lightheadedness, dizziness, changes in her vision or hearing, tinnitus, dysphagia, numbness of face or tongue. Patient is scheduled for a repeat MRI at 9:15 AM. Previous MRI obtained on 10/14/20 showed no evidence of acute ischemic event or pathological enhancement throughout the brain parenchyma, there was however a questionable small mass developing in the insular cortex and right temporal lobe-possible artifact. General: Non toxic, no distress, appears at stated age Derm: Warm, dry Head: Atraumatic, normocephalic, symmetric Eyes: EOMI with no nystagmus. No lid lag, anicteric sclera Mouth: No lip lesion, mucus membranes moist Cardiovascular: S1S2 normal with regular rate and rhythm. no murmur, gallop, or rub. Positive posterior tibial pulses bilaterally, no lower extremity edema. Lungs: Respirations even, regular, and unlabored on 2 L O2 via nasal cannula. Soft expiratory wheezes present. No rales or rhonchi. No accessory muscle usage. Abdominal: Soft, nontender to palpation, no guarding, no appreciable organomegaly Ext: no gross muscle atrophy, no edema, no contractures Neuro: GCS 14-15, episodes of cognitive impairment waxing and waning. Cranial nerves II through XII intact. Full range of motion of upper and lower extr emities intact. Movement and strength equal and strong to bilateral upper and lower extremities. Sensation intact. Anomic aphasia present. Impaired proprioception with abnormal finger to nose and abnormal repetitive movement examination. Normal [id number]. Psych: Alert, oriented, appropriate affect Assessment and Plan of Care: Anomic aphasia with impaired proprioception -MRI brain with and without contrast scheduled this morning at 9:15 AM -Neuro checks to continue every 4 hours -Consult to neurology, appreciate recommendations -Speech therapy evaluated, appreciate recommendations -Consult PT/OT -Fall precautions EKG changes, T-wave inversion anterioseptal leads -EKG showing normal sinus rhythm at 65 bpm with T-wave inversion in anterioseptal leads aVR, V1, V2, and V3 which is changed from previous EKG obtained on 10/12/20. -Troponin's trended and were negative 3 -Patient continues to deny having any cardiac complaints. -Continue daily Eliquis, atenolol, and atorvastatin. COPD not in acute exacerbation: Home Oxygen Independent on 2 L -Continue oxygen, titrate as needed to maintain SpO2 equal to or greater than 92%. -Continue Symbicort. -Bronchodilator protocol with albuterol nebulizers every 4 hours as needed for shortness of breath and/or wheezing. Paroxysmal Atrial fibrillation/flutter -Continue anticoagulation with Eliquis. History of DVTs -Continue anticoagulation with Eliquis. Hypertension -Monitor vital signs and Continue daily medication management with atenolol. Hyperlipidemia -Continue daily medication management with atorvastatin 20 mg nightly. Bipolar disorder -Continue daily home medication regimen with primidone, lithium, and Xanax. -Paullina level normal findings at 0.5. -Psychiatry consulted for psychiatric medication management. History of small cell lung cancer in remission. CODE STATUS: Full code DVT prophylaxis: Eliquis Discussed with: Patient and RN Anticipated discharge date: 1-[address]: Home A total of 45 minutes was spent on the care of this complex patient more than 50% of the time was spent in counseling and care coordination. Objective - Vital Signs Vital signs: Vital Signs Temp 97.7 F 10/23/20 07:00 Pulse 69 10/23/20 07:25 Resp 18 10/23/20 07:00 BP 154/78 10/23/20 07:00 Pulse Ox 97 10/23/20 07:00 Intake & Output 10/22/20 10/23/20 10/23/20 18:59 06:59 18:59 Weight 61.235 kg Other: # Voids 5 - Labs CBC & Chem 7: 10/22/20 10:29 10/22/20 10:28 Labs: Abnormal Lab Results - Last 24 Hours (Table) 10/22/20 10/22/20 10/22/20 Range/Units 10:28 10:29 11:15 Lymphocytes # 0.4 L (1.0-4.8) k/uL Glucose 117 H (74-99) mg/dL Creatine Kinase 29 L (30-135) U/L Ur Barbiturates Screen Detected H (NotDetected) U Benzodiazepines Scrn Detected H (NotDetected) <Radha Shoemaker - Last Filed: 10/23/20 19:59> Objective - Vital Signs Vital signs: Vital Signs Temp 97.4 F L 10/23/20 15:00 Pulse 81 10/23/20 19:39 Resp 16 10/23/20 15:00 BP 102/54 10/23/20 15:00 Pulse Ox 96 10/23/20 15:00 Intake & Output 10/23/20 10/23/20 10/24/20 06:59 18:59 06:59 Other: Voiding Method Toilet # Voids 5 1 - Labs CBC & Chem 7: 10/22/20 10:29 10/22/20 10:28 Assessment and Plan Assessment: Patient seen and examined independently. Patient was also seen by Saúl Olson NP and case was discussed. I am in agreement with subjective, physical exam, assessment and plan as written above and amended below. Patient continues to have difficulty with expressing herself and slow thinking. Case discussed with speech therapist. General: non toxic, no distress, appears at stated age Derm: warm, dry Head: atraumatic, normocephalic, symmetric Eyes: EOMI, no lid lag, anicteric sclera Mouth: no lip lesion, mucus membranes moist Cardiovascular: S1S2 reg, no murmur, positive posterior tibial pulse bilateral, Lungs: Decreased breath sounds bilateral bilateral, no rhonchi, no rales , no accessory muscle use Psych: Alert, oriented, appropriate affect EKG changes are clinically insignificant. Patient with no cardiac complaints.
--- NOTE | 2020-10-23 13:12 | P.CNNES ---
History of Present Illness Consult date: 10/23/20 Requesting physician: Polo Hillman Reason for Consult: Confusion History of Present Illness: Patient is a 80-year-old female came to the hospital yesterday at 9:39 AM for complaints of confusion. Her speech is off, decreased mental capabilities. No focal weakness, fevers chills. Nausea vomiting or trauma. Patient states that she came to the hospital where she was confused, mixing up things, hands were shaky but not as bad. No previous history of seizures. No family history of seizures. Per patient's , he brought her to the hospital because of patient having trouble breathing, constantly moving, stuttering, confusion going on for couple weeks. Her states that both of them got Covid second vaccination shot in the end of September, and symptoms started after that. Vital signs on arrival but pressure 144/73, pulse is 72, temperature 97.7. CT head showed no suspicious acute interval changes. Chest x-ray showed mild increased lung markings within the lung hu. Correlate for volume overload and pulmonary edema. Atypical pneumonia should be considered. There is some prominence of pulmonary vascular markings and fullness at the main pulmonary arteries. Consider pulmonary hypertension. EKG shows normal sinus rhythm, T- wave abnormality, consider anterior ischemia. During drug screen positive for barbiturate, benzodiazepine, feldman virus negative. UA negative. PT/PTT and tr oponins negative. CBC, CMP, PT/PTT normal. CPK normal 29. Ammonia normal. Kingsbury level 0.5. Patient thyroid functions are normal on 10/13/2020. Hemoglobin A1c 5.3 on 05/02/2020. Patient was recently admitted to the hospital and seen by Dr. Cohen on 10/14/2020 for stuttering speech and confusion of 2 weeks duration. Patient has history of bipolar disorder. She has history of small cell lung cancer, treated with radiation and chemotherapy 5 years ago, currently in remission. There is a lso a history of atrial fibrillation, currently on Eiquis 5 mg twice a day. Patient's lithium level was elevated 2.0 at the time it was felt to be the cause of toxic encephalopathy. MRI of the brain was negative at that time. Patient was also seen by psychiatry at that time. MRI of the brain from 10/14/2020 shows no evidence of acute ischemic event or pathological enhancement throughout the brain parenchyma. Questionable small mass developing in the insular cortex and right temporal lobe is more likely artifactual in nature, given the lack of visualization on other MRI sequences and lack of contrast enhancement. 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 EEG was recommended, but was not able to be performed because of lack of plasma center technician availability. Patient states that she has history of tobacco use 1 pack per day for 20 years, quit in 2004. She also used to drink very heavily, about a fifth of Kanu Saenz every day for 20 years, quit in 2004. Patient states that she was with AA at that time, and her psychiatrist Dr. Harris helped her stop drinking. She denies bipolar disorder herself. Patient states she has 2 children Rochelle age 54 and Elias age 50. Review of Systems Patient complains of some mental confusion, denies any fevers, chills, diaphoresis, headache. Denies double vision or loss of vision. Denies abdominal pain nausea vomiting diarrhea. Denies lightheadedness, dizziness, shortness of breath, abdominal pain nausea vomiting. All other review of systems unremarkable. Past Medical History Past Medical History: Atrial Flutter, Cancer, COPD, Deep Vein Thrombosis (DVT), Hyperlipidemia, Osteoarthritis (OA), Pneumonia, Thyroid Disorder Additional Past Medical History / Comment(s): Small cell lung cancer, details discussed above treated with chemoradiation therapy, right-sided pleural effusion postthoracentesis, history of difficulty in swallowing with previous aspiration back in 2017 following her cancer treatment, history of right carotid artery disease, history of right upper extremity DVT, hyperlipidemia, hypertension, hypothyroidism, COPD. She also has history of migraines. ? Essential tremor History of Any Multi-Drug Resistant Organisms: None Reported Past Surgical History: Adenoidectomy, Appendectomy, Hysterectomy, Tonsillectomy Additional Past Surgical History / Comment(s): colonoscopy, CORE BX lt breast bx x3 has markers in place. rt hand sx to repair after injury-has limited strength in rt hand, LEFT PYELOPLASTY WITH JJ CATHETER Past Anesthesia/Blood Transfusion Reactions: No Reported Reaction Past Psychological History: Anxiety, Depression Smoking Status: Former smoker Past Alcohol Use History: None Reported Past Drug Use History: None Reported - Past Family History Father Additional Family Medical History / Comment(s): at age 48 from cerebral hemorrage Mother Family Medical History: Cancer Additional Family Medical History / Comment(s): LUNG CANCER Sister(s) Family Medical History: Cancer Additional Family Medical History / Comment(s): LUNG CANCER Medications and Allergies Home Medications Medication Instructions Recorded Confirmed Type Atorvastatin [Lipitor] 20 mg PO DAILY 02/07/16 10/22/20 History Levothyroxine Sodium [Synthroid] 100 mcg PO DAILY 02/07/16 10/22/20 History atenoloL [Tenormin] 50 mg PO DAILY 02/07/16 10/22/20 History Budesonide-Formot 160-4.5 Mcg 2 puff INHALATION RT-BID 06/03/17 10/22/20 History [Symbicort 160-4.5 Mcg Inhaler] Albuterol Sulfate [Ventolin HFA] 2 puff INHALATION RT-Q4H PRN 09/10/20 10/22/20 History Apixaban [Eliquis] 5 mg PO BID 09/10/20 10/22/20 History Primidone [Mysoline] 50 mg PO DAILY 09/10/20 10/22/20 History ALPRAZolam [Xanax] 0.5 mg PO TID 09/22/20 10/22/20 History Kingsbury Carbonate 150 mg PO BID #60 cap 10/17/20 10/22/20 Rx Allergies Allergy/AdvReac Type Severity Reaction Status Date / Time latex Allergy Swelling Verified 10/22/20 10:56 Physical Examination - Vital Signs Vital Signs: Vital Signs Temp Pulse Pulse Resp BP BP Pulse Ox 10/23/20 07:25 69 10/23/20 07:14 68 10/23/20 07:00 97.7 F 72 18 154/78 97 10/23/20 02:00 97.5 F L 70 16 106/66 94 L 10/22/20 20:00 97.5 F L 74 16 98/61 94 L 10/22/20 17:15 70 10/22/20 17:08 70 96 10/22/20 15:40 98.3 F 68 16 138/75 96 10/22/20 14:55 70 16 143/86 99 Intake and Output 10/22/20 10/23/20 10/23/20 22:59 06:59 14:59 Other: # Voids 1 5 Weight 61.235 kg On examination patient is an elderly female, in no acute distress. Patient is alert awake. She knows that she is in [place] [facility]. When asked about the state, she states [place], and would repeat it. Then she states it is [place]. Still not able to tell the state. When I give her choices, she was able to pick the [place]. She knows it is October and the year is 2020 and name of the current president. She knows her name and date of . Speech and language functions appears intact. Patient can name, repeat very well, can follow directions. No definitive paraphasic errors. She has mildly hoarse voice. On cranial examination pupils are round and reacting to light, visual hu are full on confrontation, extraocular muscles intact without nystagmus. Face is symmetric, tongue protrudes the midline. Palatal elevation and sensation normal, hearing and shoulder shrug normal, facial sensation normal. On muscle strength testing there is no pronator drift and the strength is normal in arms and legs distally and proximally. Reflexes are 2+ and plantars are downgoing. Sensory touch is equal. No ataxia for [id number] testing, tone and bulk of muscles normal. Gait deferred. On general examination there is no carotid bruit or murmur, peripheral pulses are present, abdomen soft nontender, chest is clear. Results - Laboratory Findings CBC and BMP: 10/22/20 10:29 10/22/20 10:28 Abnormal Lab Findings: Abnormal Labs 10/22/20 10/22/20 10/22/20 10:28 10:29 11:15 Lymphocytes # 0.4 L Glucose 117 H Creatine Kinase 29 L Ur Barbiturates Screen Detected H U Benzodiazepines Scrn Detected H Assessment and Plan Assessment: * Altered mental status, probably metabolic encephalopathy. * Chest x-ray showed volume overload and pulmonary edema versus atypical pneumonia. * Bipolar disorder. * Essential tremor, versus tremor related to lithium, on Mysoline. * Atrial flutter, on anticoagulation. * Abnormal CT/MRI of the brain, with evidence of reyna matter heterotropia. Plan: * EEG to evaluate for any epileptiform activity. * B12, folate * Carotid Doppler. * Discussed with patient's .
[2020-10-23] MEDS ORDERED: OLANZapine 2.5 MG TAB PO STA (13:32)
--- NOTE | 2020-10-23 13:52 | P.CN ---
Psychiatric Consult - . Consult date: 10/23/20 Consult:: 10/23/20 13:42 IDENTIFYING DATA: This patient is a 80-year-old female who currently lives with her in a house and has 2 kids. She is currently retired. REASON FOR REFERRAL: Psychiatry was consulted for confusion and psychiatric evaluation. HISTORY OF PRESENT ILLNESS: The patient presented to the hospital on 10/22 with a chief complaint of confusion for the past few days according to patient's . According to ER report patient did not have any focal weakness however to exhibit stuttering and changes in her speech. Patient was recently admitted to the medical floors for an elevation in her lithium levels. On admission patient's lithium level was 0.5. Patient had a UDS which was positive for barbiturates and benzodiazepines. She was sitting at the bedside with her today when feature writer came for evaluation. Patient's states that patient recently had a second dose of her covid shot. He claims that she has been confused and restless and has also been stuttering more often. He states that this has been worsening. Patient claims that she has been having poor sleep approximately 3-4 hours a night. She states that she has been feeling confused and was difficult to redirect in conversation and exhibited poor attention span. She was alert and oriented 2 however did not know today's date. She knew who the current president was. She spoke about her lithium being started over [address] Harris at [facility] for bipolar disorder. She also claims that she was admitted once to the mental health floor several years ago. She claims that her mood is "okay" and denies any current depression. She denies any anxiety today. She claims to have a poor appetite however has been drinking water. She states that she has been taking her medications as prescribed at home. At this time patient denies any suicidal or homical ideations, intent or plan. Patient denies any auditory, visual hallucinations and denies any paranoia or delusions. Patients admits to using cigarettes in the past however quit in 2004. PAST PSYCHIATRIC HISTORY: Patient has a a history of bipolar disorder. Patient was previously on lithium and Xanax. She claims that she was previously admitted to the mental health unit several years ago. Patient denies any psychiatric outpatient follow-up however did claim that she has an upcoming appointment in a psychiatric clinic in [place]. Patient denies any history of suicide attempts in the past. PAST MEDICAL HISTORY: A flutter, small cell cancer, COPD, hyperlipidemia, Chinedu arthritis, thyroid disorder. ALLERGIES: as per EMR. CHEMICAL DEPENDENCY HISTORY: as per HPI. FAMILY PSYCHIATRIC/SUBSTANCE USE HISTORY: denies SOCIAL HISTORY: Patient was born and raised in [place] and currently lives in [facility]. She states that she completed high school. She is currently and has 2 kids who are full grown. 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 She currently lives with her in a house. She denied any legal problems in the past. MENTAL STATUS EXAM: General Appearance: Patient appears to be elderly, stated age is alert, pleasant, and attempts to be cooperative. Patient appears to have fair hygiene and grooming wearing hospital gown with poor eye contact. Behavior: Patient is calmly lying in bed without any agitated behavior. Confused at times. Speech: Patient's speech is fluent and nonpressured. Stuttering. Mood/Affect: Patient reports their mood is "ok", affect is congruent Suicidality/Homicidality: Patient denies having any suicidal or homicidal ideation intent or plan. Perceptions: Patient denies any visual hallucinations and denies any auditory hallucinations Though content/process: There is no evidence of any delusional thought content. Poverty of content. Not endorsing any delusions. Memory and concentration: AOX2, does not know what the status, poor attention span. Cannot spell "WORLD" backwards Judgment and insight: poor IMPRESSIONS: Delirium possibly secondary to medications History of bipolar disorder PLAN: -At this time patient DOES NOT meet criteria for inpatient psychiatric admission. -Delirium precautions recommended with patient including - avoiding use of narcotics and [employer] sedatives, limit anticholinergic medications when possible, frequent re-orientation, minimize use of restraints, open window shades during the day and close them at night -Would recommend the following medication changes/additions: Decreasing Xanax to 0.25 mg 3 times a day as this could be contributing to patient's confusion. Discontinue lithium and replaced with Zyprexa 2.5 mg daily at bedtime. -Patient is being seen by neurology. Patient will have an MRI and EEG done today. -sewage disposal worker to provide patient with outpatient mental health/psychiatry [facility] for appropriate follow up upon discharge -Communicated plan to patient's nurse -Will continue to follow along -Please contact with any questions.
--- NOTE | 2020-10-23 16:09 | EEG ---
ELECTROENCEPHALOGRAM REPORT DATE OF SERVICE: 10/23/2020 PREAMBLE: This is a 80-year-old female with episodes of altered mental status. This study is performed to evaluate for any epileptiform activity. EEG FINDINGS: This is a 21 channel routine EEG recording in a patient utilizing 10/20 international system with referential and bipolar montages. The background consists of slightly disorganized background, consisting of mixed frequencies of 8-9 hertz alpha, with some intermixed theta and delta activity seen in bihemispheric region. The background does not seem to be clearly reactive to eye opening or closing. Photic driving response was not seen. Some muscle and myogenic artifacts were frequently seen. Some sharp appearing waves were seen but had a lot of myogeinic artifacts therefore may be artifactual in nature. Different stages of sleep were not seen. No definitive focal or generalized epileptiform activity was seen. IMPRESSION: This is a mildly abnormal EEG due to slightly disorganized background with mild intermittent slowing. This is suggestive of nonspecific generalized cerebral dysfunction, may be related to encephalopathy. No obvious epileptiform activity was seen. As the study was limited due to myogenic and movement artifacts, suggest a prolonged, sleep-deprived or a 24 hours ambulatory EEG if your suspicion for seizures is high. MMODL / IJN: [id number] / SUJIT
[2020-10-23] MEDS: ALPRAZolam 0.25 MG TAB PO SCH ×2 (16:16→21:18)
[2020-10-23] MEDS ORDERED: LORazepam 2 MG/ML INJ IV PRN ×2 (17:09→19:58)
--- NOTE | 2020-10-23 18:31 | US ---
EXAMINATION TYPE: US carotid duplex BILAT DATE OF EXAM: 10/23/2020 COMPARISON: CT, MR CLINICAL HISTORY: Altered mental status. Altered mental status. Hx smoker. EXAM MEASUREMENTS: RIGHT: Peak Systolic Velocity (PSV) cm/sec ----- Right CCA: 89.4 ----- Right ICA: 112.1 ----- Right ECA: 98.2 ICA/CCA ratio: 1.3 RIGHT: End Diastole cm/sec ----- Right CCA: 9.1 ----- Right ICA: 26.7 ----- Right ECA: 0.0 LEFT: Peak Systolic Velocity (PSV) cm/sec ----- Left CCA: 77.3 ----- Left ICA: 73.8 ----- Left ECA: 78.2 ICA/CCA ratio: 1.0 LEFT: End Diastole cm/sec ----- Left CCA: 9.1 ----- Left ICA: 20.6 ----- Left ECA: 0.0 VERTEBRALS (direction of flow): Right Vertebral: Antegrade Left Vertebral: Antegrade Rhythm: Normal Intimal thickening bilaterally. Hyperechoic plaque seen within bilateral bulbs. IMPRESSION: No hemodynamically significant stenosis of the bilateral internal carotid arteries. Criteria for Assigning % of Stenosis / Diameter reduction (Estimation based on the indirect measurements of the internal carotid artery velocities (ICA PSV). 1. Normal (no stenosis)=ICA PSV < 125 cm/s: ratio < 2.0: ICA EDV<40 cm/s. 2. Less than 50% stenosis=ICA PSV < 125 cm/s: ratio < 2.0: ICA EDV<40 cm/s. 3. 50 to 69% stenosis=ICA PSV of 125 to 230 cm/s: ration 2.0 ? 4.0: ICA EDV 40-100 cm/s. 4. Greater than 70% stenosis to near occlusion= ICA PSV > 230 cm/s: ratio > 4.0: ICA EDV > 100 cm/s. 5. Near occlusion= ICA PSV velocities may be low or undetectable: variable ratio and ICA EDV. 6. Total occlusion=unable to detect flow.
[2020-10-23 19:35] LABS: Folate, Serum >24.0 ng/mL
[2020-10-23] MEDS: OLANZapine 2.5 MG TAB PO SCH (21:19)
--- NOTE | 2020-10-23 21:30 | MR ---
EXAMINATION TYPE: MR brain wo/w con DATE OF EXAM: 10/23/2020 COMPARISON: MRI brain 10 days ago and 2016 HISTORY: Neuro def w anomic aphasia, impaired proprioception. TECHNIQUE: Multiplanar, multisequence images of the brain and brainstem is performed without and with IV contras t, utilizing 6 mL intravenous Gadavist . FINDINGS: Currently exam is degraded by motion artifact. Diffusion weighted images demonstrate no isidro dence of a recent infarct or other diffusion abnormality. There is mild to moderate ventricular and s ulcal prominence redemonstrated. 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 Increased T2 hyperintense signal in the raoul i s redemonstrated Midline structures redemonstrate normal morphology. The craniocervical junction appears within quentin l limits. Post contrast images demonstrate no abnormal enhancement. Dominant left vertebral artery r edemonstrated. The dural venous sinuses appear patent. Stable small mucous retention cyst and/or poly p in the anterior left maxillary sinus otherwise paranasal sinuses are clear. Globes are intact bilat erally. IMPRESSION: Overall stable findings, no MRI evidence for recent infarct or new suspicious enhancing m ass. Nonspecific pontine T2 hyperintense changes redemonstrated.
[2020-10-24] MEDS: LEVOTHYROXINE 100 MCG TAB PO SCH (05:56)
[2020-10-24] MEDS: SYMBICORT 160-4.5 MCG INHALER INHALATION SCH ×2 (07:59→19:53)
[2020-10-24 08:38] LABS: HGB 13.1 g/dL (12.0-15.0); Mean Platelet Volume 9.9 fL (9.5-12.2); Platelet Count 152 X 10*3/uL (140-440); RDW 13.1 % (11.5-14.5); WBC 4.68 X 10*3/uL (4.50-10.00)
[2020-10-24] MEDS: ALPRAZolam 0.25 MG TAB PO SCH ×3 (08:41→22:12)
[2020-10-24] MEDS: PRIMIDONE 50 MG TAB PO SCH (08:41)
[2020-10-24] MEDS: APIXABAN 5 MG TAB PO SCH ×2 (08:41→20:24)
[2020-10-24] MEDS: atenoloL 50 MG TAB PO SCH (08:41)
[2020-10-24] MEDS: ATORVASTATIN 20 MG TAB PO SCH (08:41)
[2020-10-24 09:21] LABS: African American GFR (CKD) 81.8 (60.0-200.0); Anion Gap 7.9 mmol/L (4.00-12.00); BUN/Creat Ratio 16.25 Ratio (12.00-20.00); Calcium 9.3 mg/dL (8.7-10.3); Carbon Dioxide 29.1 mmol/L (21.6-31.8); Non-African American GFR(CKD) 70.6 (60.0-200.0); Potassium 4.1 mmol/L (3.5-5.5)
--- NOTE | 2020-10-24 13:06 | P.PN ---
Progress Note - Text Progress Note Date: 10/24/20 Interval History: Patient was seen today for psychiatric follow up regarding patients delirium and bipolar disorder. Patient appeared to be sitting up on her bed before eating lunch today. She continues to be stuttering however is showing mild improvement in terms of her speech. Patient and asked questions about her MRI and EEG results which were explained by telegraphic typewriter mechanic. Commissioned Police Officer also explained encephalopathy/delirium and the ongoing treatment plan for her. Patient appeared to have improvement in her concentration. She was alert and oriented 2 today and believe that it was October 1920. She had difficulty with saying the days of the week backwards and at times perseverated. She claims that her mood has been fair and denies any current depression. She was tearful however when speaking about her grandchildren and not being able to see them. She did claim that today she wants to participate more and "take a shower". She states that she was able to sleep fairly last night however did not say how many hours she got. She is denying any racing thoughts or any flight of ideas. At this time patient denies any suicidal or homical ideations, intent or plan. Patient denies any auditory, visual hallucinations and denies any paranoia or delusions. Patient denies any side effects from the medications and has been compliant with meds. Mental Status Exam: General Appearance: Patient appears to be elderly, stated age is alert, pleasant, and attempts to be cooperative. Patient appears to have fair hygiene and grooming wearing hospital gown with improving eye contact. Behavior: Patient is calmly lying in bed without any agitated behavior. Confusion improving mildly Speech: Patient's speech is fluent and nonpressured. Stuttering, improving mildly Mood/Affect: Patient reports their mood is "ok", affect is congruent Suicidality/Homicidality: Patient denies having any suicidal or homicidal ideation intent or plan. Perceptions: Patient denies any visual hallucinations and denies any auditory hallucinations Though content/process: There is no evidence of any delusional thought content. Poverty of content. Not endorsing any delusions. Memory and concentration: AOX2, does not know what the date is today, improving attention span. Cannot list the days of the week backwards. She knows the previous 3 presidents and the current one Judgment and insight: Limited, improving mildly Assessment Delirium possibly secondary to medications History of bipolar disorder Plan: -At this time patient DOES NOT meet criteria for inpatient psychiatric admission. -Delirium precautions recommended with patient including - avoiding use of narcotics and PRESS HELPER sedatives, limit anticholinergic medications when possible, frequent re-orientation, minimize use of restraints, open window shades during the day and close them at night -Would recommend the following medication changes/additions: Can continue with Xanax to 0.25 mg 3 times a day as this could be contributing to patient's confusion, will attempt to further decrease dose tomorrow. Continue with Zyprexa 2.5 mg daily at bedtime. will consider adding on lamictal vs. depakote as mood stabilizer if patient continues to exhibits mood instability -Patient is being seen by neurology. MRI was stable compared to previous study and did not show any masses or new infarcts. Patients EEG showed nonspecific general cerebral dysfunction suggestive of encephalopathy. -child and family services worker to provide patient with outpatient mental health/psychiatry resources for appropriate follow up upon discharge -Communicated plan to patient's nurse -Will continue to follow along -Please contact with any questions.
--- NOTE | 2020-10-24 14:14 | P.PN ---
Subjective Progress Note Date: 10/24/20 Hospital course: Patient is a 80-year-old female with a past medical history of COPD home oxygen dependent on 2 L, atrial fibrillation/flutter with previous DVTs on Eliquis, small cell lung cancer completed chemotherapy and radiation therapy almost 5 years ago and has since been in remission, and bipolar disorder on lithium who presented to [facility] with her whom reported patient was having increased confusion/changes in mental status along with changes in her speech over the past couple days. Patient was seen and fully evaluated in the emergency department. A computed tomography scan without contrast was completed of brain and was negative for acute intracranial process showing no suspicious acute interval changes. EKG showing normal sinus rhythm at 65 bpm with T-wave inversion in anterioseptal leads aVR, V1, V2, and V3 which is changed from previous EKG obtained on 10/12/20. X-ray revealed mild increased lung markings within the lung hu concerning for possible fluid volume overload and pulmonary edema versus atypical pneumonia accompanied by prominence of pulmonary vascular markings and fullness at the main pulmonary arteries concerning for pulmonary hypertension. Labs: CBC, BMP, and coags unremarkable. Troponin normal findings at < 0.012. Urinalysis negative for blood, protein, ketones, or infection. Urine drug screen positive for barbiturates and benzodiazepines. [place] level normal findings at 0.5. Patient had recent admission for similar complaints from 10/12/20 through 10/17/20 in which she was diagnosed and treated for lithium toxicity and discharged home. Pt currently being admitted under our services for acute alteration in mental status and further neurological workup. MRI negative for acute stroke or metastatic findings. EEG was abnormal, showing signs of encephalopathy. Carotid Dopplers negative for stenosis bilaterally. Psychiatry evaluated patient, discontinued her lithium and placed her on Zyprexa and recommended patient to follow up outpatient with mental health department. Speech and language pathologist evaluated pt identifying moderate cognitive deficits for present stating patient remains confused with difficulty task switching and emotionally labile at times, recommended ECF with continued speech therapy. Awaiting neurology recommendations. Physical exam: 10/24/20: Patient seen and evaluated at the bedside. She was sitting up in chair at bedside eating breakfast. She continues to have difficulties finding words, as well as cognitive changes and difficulties with her memory. Patient continues to repeat himself. She had breakfast this morning patient denies having any headache, lightheadedness, dizziness, changes in her vision or hearing, tinnitus, dysphagia, numbness of face or tongue. General: Non toxic, no distress, appears at stated age Derm: Warm, dry Head: Atraumatic, normocephalic, symmetric Eyes: EOMI with no nystagmus. No lid lag, anicteric sclera Mouth: No lip lesion, mucus membranes moist Cardiovascular: S1S2 normal with regular rate and rhythm. no murmur, gallop, or rub. Positive posterior tibial pulses bilaterally, no lower extremity edema. Lungs: Respirations even, regular, and unlabored on 2 L O2 via nasal cannula. Soft expiratory wheezes present. No rales or rhonchi. No accessory muscle usage. Abdominal: Soft, nontender to palpation, no guarding, no appreciable organomegaly Ext: no gross muscle atrophy, no edema, no contractures Neuro: GCS 14-15, episodes of cognitive impairment waxing and waning. Cranial nerves II through XII intact. Full range of motion of upper and lower extremities intact. Movement and strength equal and strong to bilateral upper and lower extremities. Sensation intact. Anomic aphasia present. Impaired proprioception with abnormal finger to nose and abnormal repetitive movement examination. Normal [id number]. Psych: Alert, oriented, appropriate affect Assessment and Plan of Care: Anomic aphasia with impaired proprioception -MRI brain with and without contrast reported as overall stable findings, no MRI evidence for recent infarct or new suspicious enhancing mass. Nonspecific pontine T2 hyperintense changes redemonstrated. -Carotid Dopplers revealing no hemodynamically significant stenosis of the bilateral internal carotid arteries. -EEG reported as mildly abnormal due to slightly disorganized background with mild intermittent slowing suggestive of nonspecific generalized cerebral dysfunction may be related to encephalopathy. No obvious epileptiform activity reported. -Neuro checks to continue every 4 hours. -Neurology following, appreciate further recommendations. -Speech and language pathologist evaluated pt identifying moderate cognitive deficits for present stating patient remains confused with difficulty task switching and emotionally labile at times, recommended ECF with continued speech therapy. -Consult PT/OT. -Fall precautions. EKG changes, T-wave inversion anterioseptal leads -EKG showing normal sinus rhythm at 65 bpm with T-wave inversion in anterioseptal leads aVR, V1, V2, and V3 which is changed from previous EKG obtained on 10/12/20. -Troponin's trended and were negative 3. -Patient continues to deny having any cardiac complaints. -Continue daily Eliquis, atenolol, and atorvastatin. COPD not in acute exacerbation: Home Oxygen Independent on 2 L -Continue oxygen, titrate as needed to maintain SpO2 equal to or greater than 92%. -Continue Symbicort. -Bronchodilator protocol with albuterol nebulizers every 4 hours as needed for shortness of breath and/or wheezing. Paroxysmal Atrial fibrillation/flutter -Continue anticoagulation with Eliquis. History of DVTs -Continue anticoagulation with Eliquis. Hypertension -Monitor vital signs and Continue daily medication management with atenolol. Hyperlipidemia -Continue daily medication management with atorvastatin 20 mg nightly. Bipolar disorder -Psychiatry following and discontinued lithium and placed pt on Zyprexa nightly. Pt to continue xanax TID and primidone. -Psychiatry recommending patient to follow-up outpatient with mental health upon discharge. History of small cell lung cancer in remission. CODE STATUS: Full code DVT prophylaxis: Eliquis Discussed with: Patient and RN Anticipated discharge date: 1-[address]: Home with homecare and speech therapy A total of 45 minutes was spent on the care of this complex patient more than 50% of the time was spent in counseling and care coordination. Objective - Vital Signs Vital signs: Vital Signs Temp 98.0 F 10/24/20 07:20 Pulse 68 10/24/20 07:20 Resp 16 10/24/20 07:20 BP 145/83 10/24/20 07:20 Pulse Ox 90 L 10/24/20 07:20 Intake & Output 10/23/20 10/24/20 10/24/20 18:59 06:59 18:59 Other: Voiding Method Toilet Toilet # Voids 1 2 - Labs CBC & Chem 7: 10/24/20 04:47 10/24/20 04:47 Labs: Abnormal Lab Results - Last 24 Hours (Table) 10/24/20 Range/Units 04:47 MCV 100.0 H (80.0-97.0) fL
--- NOTE | 2020-10-24 15:25 | CDI ---
Documentation Clarification Form Date: 10/24/2020 03:15:54 PM From: Carlotta Parker CCS, CCDS Admit Date: 10/24/2020 07:08:00 AM Patient Name: Margaret Gregg Visit Number: [id number] Discharge Date: ATTENTION: The Clinical Documentation Specialists (CDI) and [facility] Coding Staff appreciate your assistance in clarifying documentation. Please respond to the clarification below the line at the bottom and electronically sign. The CDI & [facility] Coding staff will review the response and follow-up if needed. Please note: Queries are made part of the Legal Health Record. If you have any questions, please contact the author of this message via ITS. Dr. Jose Yen: Atrial Flutter is documented in the 10/22 ED Note, the 10/22 History & Physical and the 10/23 Neurology Consult without further specificity. History/Risk factors per the 10/22 ED Note Past Medical History: Atrial Flutter, Small Cell Lung Cancer status post Chemotherapy & Radiation, COPD, DVT, Hyperlipidemia, Pneumonia, Hypothyroid, OA, Difficulty swallowing with previous aspiration after Cancer treatment, RUE DVT, Right Carotid Artery Disease, Migraines and Essential tremor. Clinical Indicators: Presented to the ED on 10/22 with confusion. Clinical Impression: Acute confusional state. 10/22 VS: T 97.7, P 72, R 18, BP 144/73, PO 94 2Lnc, BMI: 21.1 10/22 LAB: Lymph 0.4, Glucose 117, Creatinine Kinase 29. UA: Negative. Toxicology: Barbiturates & Benzodiazepines detected. COVID negative. 10/22 EKG: R 65 nsr Treatment 10/22: INH Ventolin, IV fluid 1,000 mls @ 80 mls/hr q12H, INH Symbicort, po Eliquis, po Plaza Carbonate, po Tenormin In your professional opinion, in order to capture the severity of condition; can you please clarify the type of Atrial Flutter if known? [ ] Typical/Type I [ ] Atypical/Type II [ ] Other, please specify [ ] Unable to determine (Last Revision: November 2017) UNABLE TO DETERMINE MTDD
--- NOTE | 2020-10-24 17:23 | P.PN ---
Subjective Progress Note Date: 10/24/20 Patient was seen for a follow-up. Patient denies any new complaints. No headache. No double vision. Objective - Vital Signs Vital signs: Vital Signs Temp 97.4 F L 10/24/20 13:10 Pulse 73 10/24/20 13:10 Resp 16 10/24/20 13:10 BP 116/70 10/24/20 13:10 Pulse Ox 94 L 10/24/20 13:10 Intake & Output 10/23/20 10/24/20 10/24/20 18:59 06:59 18:59 Other: Voiding Method Toilet Toilet # Voids 1 2 2 # Bowel Movements 0 - Exam Patient's mental status, speech and language functions appears normal. Patient has slightly slow mentation as yesterday as well. Muscle strength is normal. Visual hu are full. - Labs CBC & Chem 7: 10/24/20 04:47 10/24/20 04:47 Labs: Abnormal Lab Results - Last 24 Hours (Table) 10/24/20 Range/Units 04:47 MCV 100.0 H (80.0-97.0) fL Assessment and Plan Assessment: * Altered mental status, probably metabolic encephalopathy. Patient's symptoms started shortly after she received a second dose of Covid-19 vaccine (Moderna). Uncertain if encephalopathy is from the vaccination. * Chest x-ray showed volume overload and pulmonary edema versus atypical pneumonia. * Bipolar disorder. * Essential tremor, versus tremor related to lithium, on Mysoline. * Atrial flutter, on anticoagulation. * Abnormal CT/MRI of the brain, with evidence of reyna matter heterotropia. Plan: * EEG shows background slowing, disorganization, no definitive epileptiform activity. EEG was technically limited due to significant myogenic/movement artifact. If the patient continues to have mental confusion, and syncopal spells, would suggest a prolonged or 24 hours ambulatory EEG to rule out underlying epileptiform activity. This can be performed as an outpatient at a local neurology office. No indication for antiepileptic medication at this time. * B12 762, folate > 24.0 * Carotid Doppler showed no stenosis, antegrade flow in both vertebral arteries. * MRI of the brain revealed no acute process. 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
[2020-10-24] MEDS: OLANZapine 2.5 MG TAB PO SCH (20:24)
[2020-10-25] MEDS: LEVOTHYROXINE 100 MCG TAB PO SCH (05:38)
[2020-10-25] MEDS: APIXABAN 5 MG TAB PO SCH (07:34)
[2020-10-25] MEDS: ALPRAZolam 0.25 MG TAB PO SCH (07:35)
[2020-10-25] MEDS: PRIMIDONE 50 MG TAB PO SCH (07:35)
[2020-10-25] MEDS: atenoloL 50 MG TAB PO SCH (07:35)
[2020-10-25] MEDS: ATORVASTATIN 20 MG TAB PO SCH (07:35)
[2020-10-25 07:52] VITALS: BP 152/78; PULSE 68; RESP 17; TEMP 97.4
[2020-10-25] MEDS: SYMBICORT 160-4.5 MCG INHALER INHALATION SCH (08:22)
[2020-10-25] MEDS ORDERED: FLUoxetine HCL 10 MG CAP PO SCH (11:30)
--- NOTE | 2020-10-25 11:39 | P.PN ---
Progress Note - Text Progress Note Date: 10/25/20 Interval History: Patient was seen today for psychiatric follow up regarding patients delirium and bipolar disorder. Patient appeared to be sitting on her bed watching television. She appeared to be in a brighter mood this morning and appeared to have improvement in her stuttering in her speech. She states that she has been taking the medications as prescribed and states that she slept fairly last night with the Zyprexa. She claims that her will be coming up to visit her later on today and has been very supportive of her. Patient appeared to have improvement in her concentration and today was able to spell "world" backwards. She was alert and oriented 3 today and believe that it was fridayOctober 2020. She claims that her mood has been fair however did mention that she does feel sad at times especially when thinking of her family and her grandchildren. She admits to improving appetite. She is denying any racing thoughts or any flight of ideas. At this time patient denies any suicidal or homical ideations, intent or plan. Patient denies any auditory, visual hallucinations and denies any paranoia or delusions. Patient denies any side effects from the medications and has been compliant with meds. Mental Status Exam: General Appearance: Patient appears to be elderly, stated age is alert, pleasant, and attempts to be cooperative. Patient appears to have fair hygiene and grooming wearing hospital gown with improved eye contact. Behavior: Patient is calmly lying in bed without any agitated behavior. Speech: Patient's speech is fluent and nonpressured. Stuttering, improving mildly Mood/Affect: Patient reports their mood is "better", affect is congruent and appropriate. Suicidality/Homicidality: Patient denies having any suicidal or homicidal ideation intent or plan. Perceptions: Patient denies any visual hallucinations and denies any auditory hallucinations Though content/process: There is no evidence of any delusional thought content. Poverty of content. Not endorsing any delusions. Memory and concentration: AOX3, improving attention span. Judgment and insight: Limited, improving mildly Assessment Delirium possibly secondary to medications History of bipolar disorder Plan: -At this time patient DOES NOT meet criteria for inpatient psychiatric admission. -Delirium precautions recommended with patient including - avoiding use of narcotics and TRAVELING SALES REPRESENTATIVE sedatives, limit anticholinergic medications when possible, frequent re-orientation, minimize use of restraints, open window shades during the day and close them at night -Would recommend the following medication changes/additions: Can continue with Xanax to 0.25 mg 3 times a day for New. Continue with Zyprexa 2.5 mg daily at bedtime. Added Prozac 10 mg daily for mood/anxiety. -Patient is being seen by neurology. MRI was stable compared to previous study and did not show any masses or new infarcts. Patients EEG showed nonspecific general cerebral dysfunction suggestive of encephalopathy. -rescue worker to provide patient with outpatient mental health/psychiatry [facility] for appropriate follow up upon discharge -Psychiatry will sign off at this time. -Patient will be following up with [facility] in [facility].
--- NOTE | 2020-10-25 14:46 | P.PN ---
Subjective Progress Note Date: 10/25/20 Patient was seen earlier this morning, at around 9:30 AM. Patient was seen for a follow-up. Patient denies any new complaints. No headache. No double vision. Patient states that she is doing better. She took a long walk in the hallway. No further syncope or seizures. No headache. Objective - Vital Signs Vital signs: Vital Signs Temp 97.4 F L 10/25/20 07:50 Pulse 68 10/25/20 07:50 Resp 17 10/25/20 07:50 BP 152/78 10/25/20 07:50 Pulse Ox 92 L 10/25/20 07:50 Intake & Output 10/24/20 10/25/20 10/25/20 18:59 06:59 18:59 Intake Total 480 Balance 480 Intake: Oral 480 Other: Voiding Method Toilet Toilet Toilet # Voids 3 2 1 # Bowel Movements 1 1 - Exam Patient is sitting in the recliner. More alert and awake. Patient's mental status, speech and language functions appears normal. Patient has slightly slow mentation as yesterday as well. Muscle strength is normal. Visual hu are full. - Labs CBC & Chem 7: 10/24/20 04:47 10/24/20 04:47 Assessment and Plan Assessment: * Altered mental status, probably metabolic encephalopathy. Patient's symptoms started shortly after she received a second dose of Covid-19 vaccine (Moderna). Uncertain if encephalopathy is from the vaccination. * Chest x-ray showed volume overload and pulmonary edema versus atypical pneumonia. * Bipolar disorder. * Essential tremor, versus tremor related to lithium, on Mysoline. * Atrial flutter, on anticoagulation. * Abnormal CT/MRI of the brain, with evidence of reyna matter heterotropia. Plan: * EEG shows background slowing, disorganization, no definitive epileptiform activity. EEG was technically limited due to significant myogenic/movement artifact. If the patient continues to have mental confusion, and syncopal sp ells, would suggest a prolonged or 24 hours ambulatory EEG to rule out underlying epileptiform activity. This can be performed as an outpatient at a local neurology office. No indication for antiepileptic medication at this time. * B12 762, folate > 24.0 * Carotid Doppler showed no stenosis, antegrade flow in both vertebral arteries. * MRI of the brain revealed no acute process. 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 * Neurologically clear for discharge.
--- NOTE | 2020-10-25 15:51 | P.DS ---
Providers Date of admission: 10/24/20 07:08 Expected date of discharge: 10/25/20 Attending physician: Radha Shoemaker DO Consults: 10/22/20 14:35 Consult Physician Routine Consulting Provider: Ben Cullen Consult Reason/Comments: Confusion Do you want consulting provider notified?: Yes Consult Physician Routine Consulting Provider: Devan Hernandez Consult Reason/Comments: Confusion, medication evaluation Do you want consulting provider notified?: Yes Primary care physician: DION Jose Hospital Course: Anomic aphasia with impaired proprioception EKG changes, T-wave inversion anterioseptal leads COPD not in acute exacerbation: Home Oxygen Independent on 2 L Paroxysmal Atrial fibrillation/flutter History of DVTs Hypertension Hyperlipidemia Bipolar disorder History of small cell lung cancer in remission. Patient is a 80-year-old female with a past medical history of COPD home oxygen dependent on 2 L, atrial fibrillation/flutter with previous DVTs on Eliquis, small cell lung cancer completed chemotherapy and radiation therapy almost 5 years ago and has since been in remission, and bipolar disorder on lithium who presented to [facility] with her whom reported patient was having increased confusion/changes in mental status along with changes in her speech over the past couple days. Patient was seen and fully evaluated in the emergency department. A computed tomography scan without contrast was completed of brain and was negative for acute intracranial process showing no suspicious acute interval changes. EKG showing normal sinus rhythm at 65 bpm with T-wave inversion in anterioseptal leads aVR, V1, V2, and V3 which is changed from previous EKG obtained on 10/12/20. X-ray revealed mild increased lung markings within the lung hu concerning for possible fluid volume overload and pulmonary edema versus atypical pneumonia accompanied by prominence of pulmonary vascular markings and fullness at the main pulmonary arteries concerning for pulmonary hypertension. Labs: CBC, BMP, and coags unremarkable. Troponin normal findings at < 0.012. Urinalysis negative for blood, protein, ketones, or infection. Urine drug screen positive for barbiturates and benzodiazepines. [place] level normal findings at 0.5. Patient had recent admission for similar complaints from 10/12/20 through 10/17/20 in which she was diagnosed and treated for lithium toxicity and discharged home. Pt currently being admitted under our services for acute alteration in mental status and further neurological workup. MRI negative for acute stroke or metastatic findings. EEG was abnormal, showing signs of encephalopathy. Carotid Dopplers negative for stenosis bilaterally. Psychiatry evaluated patient, discontinued her lithium and placed her on Zyprexa and recommended patient to follow up outpatient with mental health department. Speech and language pathologist evaluated pt identifying moderate cognitive deficits for present stating patient remains confused with difficulty task switching and emotionally labile at times, recommended ECF with continued speech therapy. Neurology also evaluated the patient and did not find any evidence of epileptiform activity on 1hr EEG, but recommended ambulatory 24 hour EEG testing if symptoms persisted or recurred. I spent 35 minutes preparing this discharge. Assessment: Gen: awake, alert HEENT: normocephalic, atraumatic, good hearing acuity, moist mucous membranes Resp: good air exchange, breathing comfortably with no accessory muscle use, clear to auscultation bilaterally without wheezes or crackles CVS: good distal perfusion x 4, regular rate and rhythm without murmurs GI: soft, NTTP, ND : no SPT, no CVAT, crespo catheter not present MSK: no pitting edema, no clubbing Neuro: non-focal, moving all extremities Psych: cooperative, euthymic mood Patient Condition at Discharge: Good Plan - Discharge Summary Discharge Rx Participant: No New Discharge Prescriptions: New FLUoxetine HCL [PROzac] 10 mg PO DAILY #30 cap OLANZapine [ZyPREXA] 2.5 mg PO HS #30 tab Continue Atorvastatin [Lipitor] 20 mg PO DAILY Levothyroxine Sodium [Synthroid] 100 mcg PO DAILY atenoloL [Tenormin] 50 mg PO DAILY Budesonide-Formot 160-4.5 Mcg [Symbicort 160-4.5 Mcg Inhaler] 2 puff INHALATION RT-BID Primidone [Mysoline] 50 mg PO DAILY Apixaban [Eliquis] 5 mg PO BID Albuterol Sulfate [Ventolin HFA] 2 puff INHALATION RT-Q4H PRN PRN Reason: Shortness Of Breath Changed ALPRAZolam [Xanax] 0.25 mg PO TID #0 Discontinued [place] Carbonate 150 mg PO BID #60 cap Discharge Medication List Atorvastatin [Lipitor] 20 mg PO DAILY 02/07/16 [History] Levothyroxine Sodium [Synthroid] 100 mcg PO DAILY 02/07/16 [History] atenoloL [Tenormin] 50 mg PO DAILY 02/07/16 [History] Budesonide-Formot 160-4.5 Mcg [Symbicort 160-4.5 Mcg Inhaler] 2 puff INHALATION RT-BID 06/03/17 [History] Albuterol Sulfate [Ventolin HFA] 2 puff INHALATION RT-Q4H PRN 09/10/20 [History] Apixaban [Eliquis] 5 mg PO BID 09/10/20 [History] Primidone [Mysoline] 50 mg PO DAILY 09/10/20 [History] ALPRAZolam [Xanax] 0.25 mg PO TID #0 10/25/20 [Rx] FLUoxetine HCL [PROzac] 10 mg PO DAILY #30 cap 10/25/20 [Rx] OLANZapine [ZyPREXA] 2.5 mg PO HS #30 tab 10/25/20 [Rx] Follow up Appointment(s)/Referral(s): Reina Clark NPC [Primary Care Provider] - 1-2 days [facility], [NON-STAFF] - 1-2 Days [facility] [NON-STAFF] - As Needed (Will contact Patient and spouse regarding services. ) Patient Instructions/Handouts: [place] Toxicity (DC) Discharge Disposition: HOME WITH HOME HEALTH SERVICES
== END 2020-10-25 13:07 | disposition home health service (06) | DRG 91 ==
LOC: EC 09:39 → 6NMEDSUR 14:34 → OBSVTOIN 10-24 07:08
PROVIDERS: ADMIT Internal Medicine; ATTEND Internal Medicine
DX: R47.01 Aphasia (principal); G92 Toxic encephalopathy; I48.92 Unspecified atrial flutter; I48.0 Paroxysmal atrial fibrillation; G25.0 Essential tremor; E03.9 Hypothyroidism, unspecified; J44.9 Chronic obstructive pulmonary disease, unspecified; F31.9 Bipolar disorder, unspecified; Z20.822 Contact with and (suspected) exposure to COVID-19; H50.40 Unspecified heterotropia; F41.9 Anxiety disorder, unspecified; F98.5 Adult onset fluency disorder; R27.8 Other lack of coordination; I10 Essential (primary) hypertension; E78.5 Hyperlipidemia, unspecified; M19.90 Unspecified osteoarthritis, unspecified site; G43.909 Migraine, unspecified, not intractable, without status migrainosus; Z99.81 Dependence on supplemental oxygen; Z79.01 Long term (current) use of anticoagulants; Z79.51 Long term (current) use of inhaled steroids; Z79.890 Hormone replacement therapy; Z79.899 Other long term (current) drug therapy; Z87.891 Personal history of nicotine dependence; Z92.3 Personal history of irradiation; Z86.718 Personal history of other venous thrombosis and embolism; Z92.21 Personal history of antineoplastic chemotherapy; Z90.89 Acquired absence of other organs; Z90.710 Acquired absence of both cervix and uterus; Z85.118 Personal history of other malignant neoplasm of bronchus and lung; Z87.19 Personal history of other diseases of the digestive system; Z90.49 Acquired absence of other specified parts of digestive tract; Z87.448 Personal history of other diseases of urinary system; Z87.81 Personal history of (healed) traumatic fracture; Z87.01 Personal history of pneumonia (recurrent); Z98.890 Other specified postprocedural states; Z91.040 Latex allergy status; Z80.1 Family history of malignant neoplasm of trachea, bronchus and lung; Z82.3 Family history of stroke
CPT/HCPCS: 36415; 70450; 70553; 71046; 80048; 80053; 80178; 80306; 81003; 82140; 82550; 82607; 82746; 83735; 83880; 84484; 85025; 85027; 85610; 85730; 87635; 93005; 93880; 94640; 94760; 95816; 99285

== ENCOUNTER → 2020-11-15 | Outpatient (CLI) | payer MEDICARE, BC ==
--- NOTE | 2020-11-15 14:47 | CT ---
EXAMINATION TYPE: CT chest w con DATE OF EXAM: 11/15/2020 COMPARISON: CTA chest September 10, [address] older [address]s. Multiple PET CT is HISTORY: lung cancer CT DLP: 426.8 mGycm. Automated Exposure Control for Dose Reduction was Utilized. TECHNIQUE: CT scan of the thorax is performed following with IV Contrast, patient injected with 80 m L of Isovue 300. FINDINGS: LUNGS: Background moderate to advanced underlying emphysematous change redemonstrated. Persistent sma ll to moderate-sized right pleural effusion shows no significant interval change from most recent CT. There is associated compressive atelectasis in the right lung base. Left lung remains clear. Persist ent and stable right-sided volume loss. MEDIASTINUM: There are no new greater than 1 cm hilar or mediastinal lymph nodes. No cardiomegaly o r pericardial effusion is seen. Coronary artery calcifications present. OTHER: Underlying scoliotic curvature. Exaggerated kyphosis. Multilevel spurring in the spine. IMPRESSION: No suspicious new recurrent mass or adenopathy to suggest active neoplastic recurrence. M oderate to advanced underlying emphysematous change with small to moderate right pleural effusion red emonstrated. No significant change from most recent CT.
== END | disposition home or self-care (01) ==
LOC: RADCTMAIN 12:39
PROVIDERS: ATTEND Internal Medicine Critical Care Medicine
DX: C34.90 Malignant neoplasm of unspecified part of unspecified bronchus or lung (principal); J43.9 Emphysema, unspecified; J90 Pleural effusion, not elsewhere classified
CPT/HCPCS: 82565; 84520; 71260; 36415; Q9967

== ENCOUNTER → 2020-11-23 | Outpatient (CLI) | payer MEDICARE, BC ==
--- NOTE | 2020-09-15 10:53 | P.PCN ---
Date of Procedure: 09/12/20 Preoperative Diagnosis: Right-sided pleural effusion Postoperative Diagnosis: Same Procedure(s) Performed: Thoracentesis Anesthesia: local Surgeon: Chris Lucio Estimated Blood Loss (ml): 0 Pathology: other Condition: stable Disposition: floor Operative Findings: A time out was performed and the chest x-ray was reviewed, the appropriate side was confirmed and marked. My hands were washed immediately prior to the procedure. I wore a surgical cap, mask with protective eyewear, sterile gown and sterile gloves throughout the procedure. The patient was prepped and draped in a sterile manner using chlorhexidine scrub after the appropriate level was percussed and confirmed by ultrasound. 1% lidocaine was used to anesthesize the skin, subcutaneous tissue, superior aspect of the rib periosteum and parietal pleura. A finder needle was then introduced over the superior aspect of the rib to locate the pleural fluid; 2colored fluid was aspirated at a depth of approximately 2 cm. A 10-blade scalpel was used to delonte the skin at the insertion site. The [id number] needle was then introduced through the skin incision into the pleural space using negative aspiration pressure and the red colometric indicator to confirm appropriate positioning of the needle. The thoracentesis catheter was then threaded without difficulty. 450ml of turbid colored fluid was removed without difficulty. The catheter was then removed. No immediate complications were noted during the procedure. A post-procedure chest x-ray is pending at the time of this note. The fluid will be sent for studies. Estimated blood loss is 0cc
--- NOTE | 2020-11-27 10:39 | MM ---
Reason for exam: screening (asymptomatic). Last mammogram was performed 1 year and 3 months ago. History: Patient is postmenopausal, previous chest radiation therapy, and history of other cancer. Family history of breast cancer in sister at age 60 and breast cancer in mother at age 64. Cancelled Left US Needle Biopsy of the left breast, August 22, 2010. Benign stereotactic core biopsy of the left breast, May 01, 2001. Benign stereotactic core biopsy of the left breast, April 11, 2000. Physical Findings: A clinical breast exam by your physician is recommended on an annual basis and results should be correlated with mammographic findings. MG 3D Screening Mammo W/Cad Bilateral CC and MLO view(s) were taken. XCCL view(s) were taken of the left breast. Prior study comparison: September 03, 2019, bilateral MG 3d screening mammo w/cad. August 17, 2018, bilateral MG 3d screening mammo w/cad. The breast tissue is heterogeneously dense. This may lower the sensitivity of mammography. Previous mammotome biopsy in the right breast and left breast x 2. Benign oil cyst and vascular calcifications. No significant changes when compared with prior studies. ASSESSMENT: Benign, BI-RAD 2 RECOMMENDATION: Routine screening mammogram of both breasts in 1 year.
== END | disposition home or self-care (01) ==
LOC: RADMAMWWP 13:16
PROVIDERS: ATTEND Internal Medicine
DX: Z12.31 Encounter for screening mammogram for malignant neoplasm of breast (principal); Z80.3 Family history of malignant neoplasm of breast; Z78.0 Asymptomatic menopausal state
CPT/HCPCS: 77063; 77067

== ENCOUNTER → 2020-12-12 | Outpatient (CLI) | payer MEDICARE, BC ==
--- NOTE | 2020-12-12 10:29 | US ---
EXAMINATION TYPE: US abdomen complete DATE OF EXAM: 12/12/2020 COMPARISON: CT CLINICAL HISTORY: R19.06 epigastric fullness. ADAM with history of lung CA EXAM MEASUREMENTS: Liver Length: 14.6 cm Gallbladder Wall: 0.2 cm CBD: 0.1 cm Spleen: 10.4 cm Right Kidney: 10.5 x 6.3 x 4.7 cm Left Kidney: 9.2 x 6.0 x 4.5 cm Pancreas: Tail obscured by overlying bowel gas Liver: wnl Gallbladder: wnl Evidence for sonographic Taylor's sign: no CBD: wnl Spleen: wnl Right Kidney: No hydronephrosis or masses Left kidney: There is a calcification measuring 1.1 x 0.5 x 0.3cml . No hydronephrosis. Upper IVC: wnl Abd Aorta: ectatic appearance distal aorta with intimal wall changes noted throughout aorta. Incidental finding: right lung fluid noted = 5.1cm A/P. IMPRESSION: 1. There is a right pleural effusion. 2. Nonobstructing 1.1 cm left renal calculus.
== END | disposition home or self-care (01) ==
LOC: RADUSWWP 09:34
PROVIDERS: ATTEND Internal Medicine
DX: N20.0 Calculus of kidney (principal)
CPT/HCPCS: 76700

== ENCOUNTER 2020-12-20 06:31 | Inpatient (IN) | payer MEDICARE, BC ==
--- NOTE | 2020-12-20 06:57 | ED ---
General Adult HPI - General Chief complaint: Shortness of Breath Stated complaint: ADMA Time Seen by Provider: 12/20/20 06:41 Source: patient, RN notes reviewed Mode of arrival: wheelchair Limitations: no limitations - History of Present Illness Initial comments: 80-year-old female with a past medical history of atrial flutter, lung cancer treated with chemotherapy, COPD, hyperlipidemia, DVT presents to the emergency room for a chief complaint of shortness of breath. Patient reports she has been struggling with "fluid around the lungs." Patient states she has had to have this drained twice now. Patient states she thinks it is returning as she is short of breath. States her shortness of breath worsened yesterday. Patient states she is scheduled to have an outpatient CT chest without contrast tomorrow to evaluate for possibility of port placement to drain the fluid.Patient has no other complaints at this time including chest pain, abdominal pain, nausea or vomiting, headache, or visual changes. - Related Data Home Medications Medication Instructions Recorded Confirmed Atorvastatin [Lipitor] 20 mg PO HS 02/07/16 12/20/20 Levothyroxine Sodium [Synthroid] 100 mcg PO DAILY 02/07/16 12/20/20 atenoloL [Tenormin] 50 mg PO DAILY 02/07/16 12/20/20 Budesonide-Formot 160-4.5 Mcg 2 puff INHALATION RT-BID PRN 06/03/17 12/20/20 [Symbicort 160-4.5 Mcg Inhaler] Albuterol Sulfate [Ventolin HFA] 2 puff INHALATION RT-Q4H PRN 09/10/20 12/20/20 ALPRAZolam [Xanax] 0.25 mg PO TID PRN 12/20/20 12/20/20 Albuterol Nebulized [Ventolin 2.5 mg INHALATION RT-Q6H PRN 12/20/20 12/20/20 Nebulized] FLUoxetine HCL [PROzac] 40 mg PO DAILY 12/20/20 12/20/20 Previous Rx's Medication Instructions Recorded OLANZapine [ZyPREXA] 2.5 mg PO HS #30 tab 10/25/20 Allergies Allergy/AdvReac Type Severity Reaction Status Date / Time latex Allergy Swelling Verified 12/20/20 06:36 Review of Systems ROS Statement: Those systems with pertinent positive or pertinent negative responses have been documented in the HPI. ROS Other: All systems not noted in ROS Statement are negative. Past Medical History Past Medical History: Atrial Flutter, Cancer, COPD, Deep Vein Thrombosis (DVT), Hyperlipidemia, Osteoarthritis (OA), Pneumonia, Thyroid Disorder Additional Past Medical History / Comment(s): Small cell lung cancer, details discussed above treated with chemoradiation therapy, right-sided pleural effusion postthoracentesis, history of difficulty in swallowing with previous aspiration back in 2017 following her cancer treatment, history of right carotid artery disease, history of right upper extremity DVT, hyperlipidemia, hypertension, hypothyroidism, COPD. She also has history of migraines. ? Essential tremor History of Any Multi-Drug Resistant Organisms: None Reported Past Surgical History: Adenoidectomy, Appendectomy, Hysterectomy, Tonsillectomy Additional Past Surgical History / Comment(s): colonoscopy, CORE BX lt breast bx x3 has markers in place. rt hand sx to repair after injury-has limited strength in rt hand, LEFT PYELOPLASTY WITH JJ CATHETER Past Anesthesia/Blood Transfusion Reactions: No Reported Reaction Past Psychological History: Anxiety, Depression Smoking Status: Former smoker Past Alcohol Use History: None Reported Past Drug Use History: None Reported - Past Family History Father Additional Family Medical History / Comment(s): at age 48 from cerebral hemorrage Mother Family Medical History: Cancer Additional Family Medical History / Comment(s): LUNG CANCER Sister(s) Family Medical History: Cancer Additional Family Medical History / Comment(s): LUNG CANCER General Exam Limitations: no limitations General appearance: alert, in no apparent distress Head exam: Present: atraumatic, normocephalic, normal inspection Eye exam: Present: normal appearance, PERRL, EOMI. Absent: scleral icterus, conjunctival injection ENT exam: Present: normal exam, mucous membranes moist Neck exam: Present: normal inspection, full ROM. Absent: tenderness, meningismus, lymphadenopathy Respiratory exam: Present: normal lung sounds bilaterally. Absent: respiratory distress, wheezes, rales, rhonchi, stridor Cardiovascular Exam: Present: regular rate, normal rhythm, normal heart sounds. Absent: systolic murmur, diastolic murmur, rubs, gallop, clicks GI/Abdominal exam: Present: soft, normal bowel sounds. Absent: distended, tenderness, guarding, rebound, rigid Neurological exam: Present: alert Course Vital Signs 12/20/20 12/20/20 12/20/20 06:34 07:00 07:50 Temperature 97.7 F Pulse Rate 72 60 Respiratory 28 H 28 H 22 Rate Blood Pressure 150/92 140/74 O2 Sat by Pulse 88 L 97 Oximetry EKG Findings - EKG Comments: EKG Findings:: Normal sinus rhythm, ventricular rate 64, Pr int 88, QTC 402 Medical Decision Making - Medical Decision Making Patient presents hypoxic and tachypneic on her baseline oxygen of 2 L. She was increased to 4 L and did saturate in the high 90s. CBC CMP unremarkable. Troponin negative. BNP 227. Patient did have an outpatient order tomorrow for a CAT scan for potential port placement. I did order this in the ER which showed increasing moderate-sized right pleural effusion. There is underlying atelectasis and/or pneumonia. Pneumonia is not clinically correlated given white count is normal and patient does not have a productive cough or fever. Patient will be admitted for further management. - Lab Data Result diagrams: 12/20/20 06:53 12/20/20 06:53 Lab Results 12/20/20 12/20/20 12/20/20 Range/Units 06:53 06:53 06:53 WBC 5.5 (3.8-10.6) k/uL RBC 4.63 (3.80-5.40) m/uL Hgb 15.1 (11.4-16.0) gm/dL Hct 43.6 (34.0-46.0) % MCV 94.1 (80.0-100.0) fL MCH 32.6 (25.0-35.0) pg MCHC 34.6 (31.0-37.0) g/dL RDW 12.4 (11.5-15.5) % Plt Count 147 L (150-450) k/uL MPV 7.2 Neutrophils % 84 % Lymphocytes % 6 % Monocytes % 6 % Eosinophils % 3 % Basophils % 0 % Neutrophils # 4.6 (1.3-7.7) k/uL Lymphocytes # 0.3 L (1.0-4.8) k/uL Monocytes # 0.3 (0-1.0) k/uL Eosinophils # 0.1 (0-0.7) k/uL Basophils # 0.0 (0-0.2) k/uL PT 10.0 (9.0-12.0) sec INR 0.9 (<1.2) APTT 23.4 (22.0-30.0) sec Sodium 142 (137-145) mmol/L Potassium 3.8 (3.5-5.1) mmol/L Chloride 109 H (98-107) mmol/L Carbon Dioxide 26 (22-30) mmol/L Anion Gap 7 mmol/L BUN 14 (7-17) mg/dL Creatinine 0.74 (0.52-1.04) mg/dL Est GFR (CKD-EPI)AfAm >90 (>60 ml/min/1.73 sqM) Est GFR (CKD-EPI)NonAf 78 (>60 ml/min/1.73 sqM) Glucose 110 H (74-99) mg/dL Calcium 9.3 (8.4-10.2) mg/dL Magnesium 1.9 (1.6-2.3) mg/dL Total Bilirubin 0.7 (0.2-1.3) mg/dL AST 27 (14-36) U/L ALT 22 (4-34) U/L Alkaline Phosphatase 94 (38-126) U/L Troponin I (0.000-0.034) ng/mL NT-Pro-B Natriuret Pep pg/mL Total Protein 6.4 (6.3-8.2) g/dL Albumin 4.2 (3.5-5.0) g/dL Coronavirus (PCR) (Not Detectd) 12/20/20 12/20/20 12/20/20 Range/Units 06:53 06:53 07:47 WBC (3.8-10.6) k/uL RBC (3.80-5.40) m/uL Hgb (11.4-16.0) gm/dL Hct (34.0-46.0) % MCV (80.0-100.0) fL MCH (25.0-35.0) pg MCHC (31.0-37.0) g/dL RDW (11.5-15.5) % Plt Count (150-450) k/uL MPV Neutrophils % % Lymphocytes % % Monocytes % % Eosinophils % % Basophils % % Neutrophils # (1.3-7.7) k/uL Lymphocytes # (1.0-4.8) k/uL Monocytes # (0-1.0) k/uL Eosinophils # (0-0.7) k/uL Basophils # (0-0.2) k/uL PT (9.0-12.0) sec INR (<1.2) APTT (22.0-30.0) sec Sodium (137-145) mmol/L Potassium (3.5-5.1) mmol/L Chloride (98-107) mmol/L Carbon Dioxide (22-30) mmol/L Anion Gap mmol/L BUN (7-17) mg/dL Creatinine (0.52-1.04) mg/dL Est GFR (CKD-EPI)AfAm (>60 ml/min/1.73 sqM) Est GFR (CKD-EPI)NonAf (>60 ml/min/1.73 sqM) Glucose (74-99) mg/dL Calcium (8.4-10.2) mg/dL Magnesium (1.6-2.3) mg/dL Total Bilirubin (0.2-1.3) mg/dL AST (14-36) U/L ALT (4-34) U/L Alkaline Phosphatase (38-126) U/L Troponin I <0.012 (0.000-0.034) ng/mL NT-Pro-B Natriuret Pep 227 pg/mL Total Protein (6.3-8.2) g/dL Albumin (3.5-5.0) g/dL Coronavirus (PCR) Not Detected (Not Detectd) Disposition Clinical Impression: Acute respiratory failure with hypoxia, Pleural effusion Disposition: ADMITTED IP TO THIS HOSP Is patient prescribed a controlled substance at d/c from ED?: No Referrals: Yao Haywood MD [Primary Care Provider] - 1-2 days Time of Disposition: 08:33
[2020-12-20 07:09] LABS: Basophils % (A) 0 %; Eosinophils # (A) 0.1 k/uL (0-0.7); Eosinophils % (A) 3 %; HCT 43.6 % (34.0-46.0); HGB 15.1 gm/dL (11.4-16.0); Lymphocytes # (A) 0.3 k/uL (1.0-4.8); Lymphocytes % (A) 6 %; MCH 32.6 pg (25.0-35.0); MCHC 34.6 g/dL (31.0-37.0); MCV 94.1 fL (80.0-100.0); Mean Platelet Volume 7.2; Monocytes # (A) 0.3 k/uL (0-1.0); Monocytes % (A) 6 %; Neutrophils # (A) 4.6 k/uL (1.3-7.7); Neutrophils % (A) 84 %; Platelet Count 147 k/uL (150-450); RBC 4.63 m/uL (3.80-5.40); RDW 12.4 % (11.5-15.5); WBC 5.5 k/uL (3.8-10.6)
[2020-12-20 07:23] LABS: INR 0.9 (<1.2); Partial Thromboplastin Time 23.4 sec (22.0-30.0)
[2020-12-20 07:27] LABS: ALT 22 U/L (4-34); AST 27 U/L (14-36); African American GFR (CKD) >90 (>60 ml/min/1.73 sqM); Albumin 4.2 g/dL (3.5-5.0); Alkaline Phosphatase 94 U/L (38-126); Anion Gap 7 mmol/L; Blood Urea Nitrogen 14 mg/dL (7-17); Calcium 9.3 mg/dL (8.4-10.2); Carbon Dioxide 26 mmol/L (22-30); Chloride 109 mmol/L (98-107); Glucose 110 mg/dL (74-99); Magnesium 1.9 mg/dL (1.6-2.3); Non-African American GFR(CKD) 78 (>60 ml/min/1.73 sqM); Potassium 3.8 mmol/L (3.5-5.1); Sodium 142 mmol/L (137-145); Total Bilirubin 0.7 mg/dL (0.2-1.3); Total Protein 6.4 g/dL (6.3-8.2)
--- NOTE | 2020-12-20 08:15 | CT ---
EXAMINATION TYPE: CT chest wo con DATE OF EXAM: 12/20/2020 COMPARISON: Radiograph 12/13/2020. Previous CT chest 11/15/2020 HISTORY: 80-year-old female Pleural Effusion TECHNIQUE: Contiguous axial scanning of the chest without IV contrast. Coronal and sagittal reconstru ctions performed. CT DLP: 274.4 mGycm Automated exposure control for dose reduction was used. FINDINGS: Heart normal size without pericardial effusion. Three-vessel coronary artery calcifications are prese nt. Borderline ectasia aortic root and ascending aorta at 3.6 cm. Mild to moderate atherosclerotic arch c alcifications. Conventional vessel branching anatomy. No thoracic lymphadenopathy by noncontrast technique. Interval enlarging moderate-sized right pleural effusion. New air bronchograms and opacification of t he basilar right lower lobe. Moderate to advanced upper lung predominant centrilobular emphysema. Visualized upper abdomen shows unchanged mild diffuse thickening of the left adrenal gland. Partially visualized nonobstructive calculus lower pole left kidney measuring at least 6 mm. Bones: Accentuated upper thoracic kyphosis. Mild superior endplate deformity of T5 is unchanged. Mode rate degenerative disc disease mid to lower thoracic spine. IMPRESSION: 1. INCREASING MODERATE SIZED RIGHT PLEURAL EFFUSION. THERE IS UNDERLYING ATELECTASIS AND/OR PNEUMONIA INVOLVING THE BASILAR RIGHT LOWER LOBE. CLINICALLY CORRELATE. 2. COPD WITH MODERATE TO ADVANCED UPPER LUNG PREDOMINANT CENTRILOBULAR EMPHYSEMA.
[2020-12-20] MEDS ORDERED: NALOXONE 0.4 MG/ML 1 ML VIAL IV PRN (09:03)
[2020-12-20] MEDS ORDERED: ALBUTEROL NEBULIZED 2.5 MG/3 ML INHALATION PRN (09:18)
[2020-12-20] MEDS ORDERED: ALBUTEROL HFA INHALER INHALATION PRN (09:18)
[2020-12-20] MEDS: SODIUM CHLORIDE 0.9% 1,000 ML IV SCH (09:28)
[2020-12-20] MEDS: ALPRAZolam 0.25 MG TAB PO SCH ×3 (09:28→21:00)
--- NOTE | 2020-12-20 15:30 | P.CNPUL ---
History of Present Illness Consult date: 12/20/20 Requesting physician: Yao Haywood Reason for consult: dyspnea, COPD, hypoxemia, pleural effusion, abnormal CXR/CT Chief complaint: Shortness of breath, recurrent right-sided pleural effusion. History of present illness: Pulmonary consult dated 12/20/2020. This is a 80-year-old female, who sees one of my partners for COPD, and recurrent right-sided pleural effusion. 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 She presents to the emergency department with increasing shortness of breath. The patient apparently has recurrent right-sided pleural effusion and has had thoracentesis twice. She apparently recently saw one of the cardiothoracic surgeons for a possibility of a Pleurx catheter placement. That apparently will be done on Friday. The patient states that the fluid drained twice, has been negative cytologically. Currently, the patient's on 4 L nasal cannula. She usually uses 2 L at home. She tested negative for coronavirus. She's not receiving any IV fluids. 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 White count 5.5, hemoglobin, hematocrit, normal. Platelet count 147,000. PT, INR, and PTT are all normal. Sodium 142, potassium 3.8, chlorides 109, CO2 26, anion gap 7, BUN 14, and creatinine 0.74. Computed tomography scan of the chest shows evidence of a recurrent right-sided pleural effusion, which is moderate in size, and emphysematous changes throughout both lungs. Review of Systems REVIEW OF SYSTEMS: CONSTITUTIONAL: [Negative.] NEUROLOGIC: [ Negative.] HEENT: [ Negative.] CARDIAC: [Negative.] PULMONARY: Shortness of breath, recurrent. GI: [Negative.] : [Negative.] RHEUMATOLOGIC: [ Negative.] IMMUNOLOGIC: [ Negative.] ENDOCRINE: [Negative. ] DERMATOLOGIC: [Negative.] Past Medical History Past Medical History: Atrial Flutter, Cancer, COPD, Deep Vein Thrombosis (DVT), Hyperlipidemia, Hypertension, Osteoarthritis (OA), Pneumonia, Renal Disease, Thyroid Disorder Additional Past Medical History / Comment(s): 2016 Small cell L lung cancer treated with chemoradiation therapy, recent right-sided pleural effusions with thoracentesis, hoem oxygen at 2L/NC ATC, dysphagia/ aspiration back in 2017 following her cancer radiation treatments, 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 History of Any Multi-Drug Resistant Organisms: None Reported Past Surgical History: Adenoidectomy, Appendectomy, Breast Surgery, Hysterectomy, Tonsillectomy Additional Past Surgical History / Comment(s): Bronchoscopy/biopsy, thoracentesis, L pyeloplasty/JJ cath, L breast core bx x3-benign, EGD, colonoscopy/benign polypectomy. Past Anesthesia/Blood Transfusion Reactions: Postoperative Nausea & Vomiting (PONV) Additional Past Anesthesia/Blood Transfusion Reaction / Comment(s): Pt has clausterphobia Smoking Status: Former smoker - Past Family History Father Family Medical History: CVA/TIA Additional Family Medical History / Comment(s): Father of a cerebral hemorrhage at age 48yrs. Mother Family Medical History: Cancer Additional Family Medical History / Comment(s): Mother of lung cancer. Sister(s) Family Medical History: Cancer Additional Family Medical History / Comment(s): Sister of lung cancer Medications and Allergies Home Medications Medication Instructions Recorded Confirmed Type Atorvastatin [Lipitor] 20 mg PO HS 02/07/16 12/20/20 History Levothyroxine Sodium [Synthroid] 100 mcg PO DAILY 02/07/16 12/20/20 History atenoloL [Tenormin] 50 mg PO DAILY 02/07/16 12/20/20 History Budesonide-Formot 160-4.5 Mcg 2 puff INHALATION RT-BID PRN 06/03/17 12/20/20 History [Symbicort 160-4.5 Mcg Inhaler] Albuterol Sulfate [Ventolin HFA] 2 puff INHALATION RT-Q4H PRN 09/10/20 12/20/20 History OLANZapine [ZyPREXA] 2.5 mg PO HS #30 tab 10/25/20 12/20/20 Rx ALPRAZolam [Xanax] 0.25 mg PO TID 12/20/20 12/20/20 History Albuterol Nebulized [Ventolin 2.5 mg INHALATION RT-Q6H PRN 12/20/20 12/20/20 History Nebulized] FLUoxetine HCL [PROzac] 40 mg PO DAILY 12/20/20 12/20/20 History Allergies Allergy/AdvReac Type Severity Reaction Status Date / Time latex Allergy Swelling Verified 12/20/20 06:36 Physical Exam Osteopathic Statement: *. No significant issues noted on an osteopathic structural exam other than those noted in the History and Physical/Consult. Vitals: Vital Signs Temp Pulse Resp BP Pulse Ox 12/20/20 14:52 98.1 F 62 19 142/95 95 12/20/20 12:30 18 12/20/20 11:17 98.5 F 62 18 151/77 94 L 12/20/20 10:00 58 L 20 129/98 96 12/20/20 09:00 58 L 24 155/84 95 12/20/20 07:50 60 22 140/74 97 12/20/20 07:00 28 H 12/20/20 06:34 97.7 F 72 28 H 150/92 88 L Intake and Output 12/20/20 12/20/20 12/20/20 06:59 14:59 22:59 Other: Weight 65.317 kg 65.317 kg No acute distress, oriented 3. Currently on 4 L nasal cannula. Saturations are okay. Minimal respiratory difficulty, without evidence of conversational dyspnea, or use of accessory muscles. Saturations are 95% on 4 L. HEENT examination is grossly unremarkable. Neck supple. Full range of motion. No adenopathy thyromegaly or neck vein distention. Cardiovascular examination reveals regular rhythm rate. S1-S2 normal. No S3 or S4. No discernible murmur noted. Heart rate 62 bpm. Lungs reveal diminished breath sounds throughout, but more so in the right lower lobe. There is dullness on percussion in the right lower lobe. No crackles. No wheezes. Abdomen soft bowel sounds are heard. No masses or tenderness. Extremities are intact. No cyanosis clubbing or edema. Skin is without rash or lesion. Neurologic examination is brief but nonfocal. Results - Laboratory Findings CBC and BMP: 12/20/20 06:53 12/20/20 06:53 PT/INR, D-dimer PT 10.0 sec (9.0-12.0) 12/20/20 06:53 INR 0.9 (<1.2) 12/20/20 06:53 Abnormal lab findings: Abnormal Labs 12/20/20 12/20/20 06:53 06:53 Plt Count 147 L Lymphocytes # 0.3 L Chloride 109 H Glucose 110 H - Diagnostic Findings CT scan - chest: image reviewed Assessment and Plan Assessment: Acute hypoxemic respiratory failure, multifactorial, in part related to COPD exacerbation, and recurrent right pleural effusion, which is been tested and found to be cytologically negative. Anticipated Pleurx catheter placement, right side, on 12/22/2020. Prior history of small cell lung cancer, left lung, status post combined chemoradiation. History of hyperlipidemia. History of hypothyroidism. History of COPD. History of hypertension. History of atrial flutter. History of right upper extremity DVT. History of essential tremor. History of migraine cephalgia. Plan: Plan dated 12/20/2020. We'll make sure the patient's on appropriate medications for COPD exacerbation. The patient has dirty seen the cardiothoracic surgeon, and there are plans to place a Pleurx catheter on Friday. Additional recommendations and suggestions are forthcoming. Clinically she looks pretty well. We will continue to follow make recommendations were appropriate. Time with Patient: Greater than 30
[2020-12-20] MEDS ORDERED: IPRATROPIUM-ALBUTEROL 3 ML NEB INHALATION PRN (15:31)
[2020-12-20] MEDS: methylPREDNISolone SOD SUCCI 40 MG/ML 1 ML VIAL IV SCH ×2 (16:03→23:00)
[2020-12-20] MEDS: IPRATROPIUM-ALBUTEROL 3 ML NEB INHALATION SCH ×2 (16:08→19:18)
--- NOTE | 2020-12-20 17:06 | P.CONS ---
History of Present Illness - History of Present Illness 82-year-old female came in with comments of shortness of breath found to have right-sided pleural effusion. Patient has a recurrent pleural effusion this a third episode. Patient is found to have moderate effusion patient doesn't wear oxygen presently on 4 L of oxygen. Patient does have a history of small cell lung cancer which has been in remission this is a left-sided lung cancer patient has been in remission for about 4 years. Patient received chemotherapy and radiation therapy at that time. The fluid that was obtained from previous thoracentesis did not show any malignancy. Patient is supposed to follow-up with carotid thoracic surgery for possible Pleurx catheter placement Review of Systems REVIEW OF SYSTEMS: CONSTITUTIONAL: No fever, no malaise, no fatigue. HEENT: No recent visual problems or hearing problems. Denied any sore throat. CARDIOVASCULAR: No chest pain, orthopnea, PND, no palpitations, no syncope. PULMONARY: no hemoptysis. GASTROINTESTINAL: No diarrhea, no nausea, no vomiting, no abdominal pain. NEUROLOGICAL: No headaches, no weakness, no numbness. HEMATOLOGICAL: Denies any bleeding or petechiae. GENITOURINARY: Denies any burning micturition, frequency, or urgency. MUSCULOSKELETAL/RHEUMATOLOGICAL: Denies any joint pain, swelling, or any muscle pain. ENDOCRINE: Denies any polyuria or polydipsia. The rest of the 14-point review of systems is negative. Past Medical History Past Medical History: Atrial Flutter, Cancer, COPD, Deep Vein Thrombosis (DVT), Hyperlipidemia, Hypertension, Osteoarthritis (OA), Pneumonia, Renal Disease, Thyroid Disorder Additional Past Medical History / Comment(s): 2016 Small cell L lung cancer maria m ated with chemoradiation therapy, recent right-sided pleural effusions with thoracentesis, hoem oxygen at 2L/NC ATC, dysphagia/ aspiration back in 2017 following her cancer radiation treatments, 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 History of Any Multi-Drug Resistant Organisms: None Reported Past Surgical History: Adenoidectomy, Appendectomy, Breast Surgery, Hysterectomy, Tonsillectomy Additional Past Surgical History / Comment(s): Bronchoscopy/biopsy, thoracentesis, L pyeloplasty/JJ cath, L breast core bx x3-benign, EGD, colonoscopy/benign polypectomy. Past Anesthesia/Blood Transfusion Reactions: Postoperative Nausea & Vomiting (PONV) Additional Past Anesthesia/Blood Transfusion Reaction / Comm: Pt has clausterphobia Smoking Status: Former smoker - Past Family History Father Family Medical History: CVA/TIA Additional Family Medical History / Comment(s): Father of a cerebral hemorrhage at age 48yrs. Mother Family Medical History: Cancer Additional Family Medical History / Comment(s): Mother of lung cancer. Sister(s) Family Medical History: Cancer Additional Family Medical History / Comment(s): Sister of lung cancer Medications and Allergies Home Medications Medication Instructions Recorded Confirmed Type Atorvastatin [Lipitor] 20 mg PO HS 02/07/16 12/20/20 History Levothyroxine Sodium [Synthroid] 100 mcg PO DAILY 02/07/16 12/20/20 History atenoloL [Tenormin] 50 mg PO DAILY 02/07/16 12/20/20 History Budesonide-Formot 160-4.5 Mcg 2 puff INHALATION RT-BID PRN 06/03/17 12/20/20 History [Symbicort 160-4.5 Mcg Inhaler] Albuterol Sulfate [Ventolin HFA] 2 puff INHALATION RT-Q4H PRN 09/10/20 12/20/20 History OLANZapine [ZyPREXA] 2.5 mg PO HS #30 tab 10/25/20 12/20/20 Rx ALPRAZolam [Xanax] 0.25 mg PO TID 12/20/20 12/20/20 History Albuterol Nebulized [Ventolin 2.5 mg INHALATION RT-Q6H PRN 12/20/20 12/20/20 History Nebulized] FLUoxetine HCL [PROzac] 40 mg PO DAILY 12/20/20 12/20/20 History Allergies Allergy/AdvReac Type Severity Reaction Status Date / Time latex Allergy Swelling Verified 12/20/20 06:36 Physical Exam Vitals: Vital Signs Temp Pulse Resp BP Pulse Ox 12/20/20 16:21 61 12/20/20 16:08 56 L 20 12/20/20 16:00 60 20 152/96 99 12/20/20 14:52 98.1 F 62 19 142/95 95 12/20/20 12:30 18 12/20/20 11:17 98.5 F 62 18 151/77 94 L 12/20/20 10:00 58 L 20 129/98 96 12/20/20 09:00 58 L 24 155/84 95 12/20/20 07:50 60 22 140/74 97 12/20/20 07:00 28 H 12/20/20 06:34 97.7 F 72 28 H 150/92 88 L Intake and Output 12/20/20 12/20/20 12/20/20 06:59 14:59 22:59 Other: Weight 65.317 kg 65.317 kg PHYSICAL EXAMINATION: GENERAL: The patient is alert and oriented x3, not in any acute distress. Well developed, well nourished. HEENT: Pupils are round and equally reacting to light. EOMI. No scleral icterus. No conjunctival pallor. Normocephalic, atraumatic. No pharyngeal erythema. No thyromegaly. CARDIOVASCULAR: S1 and S2 present. No murmurs, rubs, or gallops. PULMONARY: Decreased air entry into right posterior and inferior lung hu ABDOMEN: Soft, nontender, nondistended, normoactive bowel sounds. No palpable organomegaly. MUSCULOSKELETAL: No joint swelling or deformity. EXTREMITIES: No cyanosis, clubbing, or pedal edema. NEUROLOGICAL: Gross neurological examination did not reveal any focal deficits. SKIN: No rashes. Results CBC & Chem 7: 12/20/20 06:53 12/20/20 06:53 Labs: Abnormal Lab Results - Last 24 Hours (Table) 12/20/20 12/20/20 Range/Units 06:53 06:53 Plt Count 147 L (150-450) k/uL Lymphocytes # 0.3 L (1.0-4.8) k/uL Chloride 109 H (98-107) mmol/L Glucose 110 H (74-99) mg/dL Assessment and Plan Plan: - acute hypoxic respiratory failure requiring 4 L of oxygen: Secondary to right- sided pleural effusion patient has recurrent pleural effusion. Pulmonology is evaluating the patient, cardiac thoracic surgery was consulted as well for Pleurx catheter placement -History of small cell lung cancer in remission for last 4 years -hyperlipidemia Hypertension Haven't COPD without any acute exacerbation x-ray and have an hypertension -History of atrial flutter presently rate controlled. -History of DVT in the right upper extremity in the past -Migraine history For above-mentioned chronic acute problems patient will be started and continued on appropriate home medications
--- NOTE | 2020-12-20 17:12 | P.GSCN ---
History of Present Illness Consult date: 12/20/20 Reason for Consult: Recurrent right-sided pleural effusion, shortness of breath, evaluation for right sided Pleurx catheter placement. Requesting physician: Polo Cullen History of present illness: This is a 72-year-old female patient who follows with Dr. Yao Haywood for her primary care needs. 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 The patient also sees Dr. Lucio from pulmonary medicine and has underwent 2 previous right-sided thoracentesis with the cytology negative for malignancy. She also follows with Dr. Dalton from oncology for her history of small cell lung cancer. The patient presented to the emergency department here at [facility] today with complaints of shortness of breath and inability to lay flat. She reports that her shortness of breath has gotten worse over the last few days. The patient denies any recent fever, chills, pain, headache, hemoptysis, cough, trauma, nausea, vomiting, diarrhea or constipation. She does use oxygen at home 2 L nasal cannula. A computed tomography scan of her chest without contrast was completed today 12/20/2020 which demonstrated increasing moderate size right pleural effusion, underlying atelectasis and/or pneumonia involving the basilar right lower lobe. It also demonstrated emphysematous changes throughout both lungs. A 12-lead EKG was also completed which showed normal sinus rhythm with a heart rate 64 BPM. Laboratory results showed a WBC count 5.5, hemoglobin 15.1, hematocrit 43.6, platelets 147, sodium 142, potassium 3.8, BUN 14, creatinine 0.74, glucose 110, and a COVID 19 test was completed which showed not detected. The patient also reports that she has been vaccinated for COVID 19 in November 2020. The patient was afebrile and her oxygen saturations were 95% on 4 L nasal cannula. Due to the patient's presenting symptoms, recurrent right pleural effusion and being known to the cardiothoracic's service a consult was placed to Dr. Armando Ford for further evaluation and treatment recommendations including possible right sided Pleurx catheter placement. Review of Systems A 14 point review of systems was completed was negative except as mentioned in the HPI. 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 History of Any Multi-Drug Resistant Organisms: None Reported Past Surgical History: Adenoidectomy, Appendectomy, Breast Surgery, Hysterectomy, Tonsillectomy Additional Past Surgical History / Comment(s): Bronchoscopy/biopsy, thoracentesis, L pyeloplasty/JJ cath, L breast core bx x3-benign, EGD, colonoscopy/benign polypectomy. Past Anesthesia/Blood Transfusion Reactions: Postoperative Nausea & Vomiting (PONV) Additional Past Anesthesia/Blood Transfusion Reaction / Comm: Pt has clausterphobia Past Psychological History: Bipolar Smoking Status: Former smoker Past Alcohol Use History: None Reported Past Drug Use History: None Reported - Past Family History Father Family Medical History: CVA/TIA Additional Family Medical History / Comment(s): Father of a cerebral hemorrhage at age 48yrs. Mother Family Medical History: Cancer Additional Family Medical History / Comment(s): Mother of lung cancer. Sister(s) Family Medical History: Cancer Additional Family Medical History / Comment(s): Sister of lung cancer Medications and Allergies Home Medications Medication Instructions Recorded Confirmed Type Atorvastatin [Lipitor] 20 mg PO HS 02/07/16 12/20/20 History Levothyroxine Sodium [Synthroid] 100 mcg PO DAILY 02/07/16 12/20/20 History atenoloL [Tenormin] 50 mg PO DAILY 02/07/16 12/20/20 History Budesonide-Formot 160-4.5 Mcg 2 puff INHALATION RT-BID PRN 06/03/17 12/20/20 History [Symbicort 160-4.5 Mcg Inhaler] Albuterol Sulfate [Ventolin HFA] 2 puff INHALATION RT-Q4H PRN 09/10/20 12/20/20 History OLANZapine [ZyPREXA] 2.5 mg PO HS #30 tab 10/25/20 12/20/20 Rx ALPRAZolam [Xanax] 0.25 mg PO TID 12/20/20 12/20/20 History Albuterol Nebulized [Ventolin 2.5 mg INHALATION RT-Q6H PRN 12/20/20 12/20/20 History Nebulized] FLUoxetine HCL [PROzac] 40 mg PO DAILY 12/20/20 12/20/20 History Allergies Allergy/AdvReac Type Severity Reaction Status Date / Time latex Allergy Swelling Verified 12/20/20 06:36 Surgical - Exam Vital Signs Temp Pulse Resp BP Pulse Ox 97.7 F 72 28 H 150/92 88 L 12/20/20 06:34 12/20/20 06:34 12/20/20 06:34 12/20/20 06:34 12/20/20 06:34 - General well developed, well nourished, no distress, no pain, chronically ill - Eyes PERRL, normal ocular movement, no icteric - ENT normal pinna, normal nares, normal mucosa, no hearing loss, no congestion, dentures - Neck Neck is supple, no lymphadenopathy. no masses, no bruits, trachea midline, no venous distension - Respiratory Lung sounds with few scattered expiratory wheezes, diminished her bilateral bases right greater than left. Respirations are symmetrical and nonlabored. No crackles or rhonchi. - Cardiovascular Regular rhythm and rate. S1 and S2 present, negative for S3, gallop or murmur. Bedside telemetry showing normal sinus rhythm heart rate 62 BPM. No edema present. - Abdomen Abdomen is soft, nontender and nondistended. Active bowel sounds present all 4, quadrants. No guarding or rigidity. No organomegaly appreciated. - Integumentary no rash, no growths, no abnormal pigmentation - Neurologic Cranial nerves II through XII intact. - Musculoskeletal Moves all 4 extremities with equal strength. - Psychiatric oriented to time, oriented to person, oriented to place, speech is normal, memory intact Results - Labs 12/20/20 06:53 12/20/20 06:53 Abnormal Lab Results - Last 24 Hours (Table) 12/20/20 12/20/20 Range/Units 06:53 06:53 Plt Count 147 L (150-450) k/uL Lymphocytes # 0.3 L (1.0-4.8) k/uL Chloride 109 H (98-107) mmol/L Glucose 110 H (74-99) mg/dL Diabetes panel 12/20/20 Range/Units 06:53 Sodium 142 (137-145) mmol/L Potassium 3.8 (3.5-5.1) mmol/L Chloride 109 H (98-107) mmol/L Carbon Dioxide 26 (22-30) mmol/L BUN 14 (7-17) mg/dL Creatinine 0.74 (0.52-1.04) mg/dL Glucose 110 H (74-99) mg/dL Calcium 9.3 (8.4-10.2) mg/dL AST 27 (14-36) U/L ALT 22 (4-34) U/L Alkaline Phosphatase 94 (38-126) U/L Total Protein 6.4 (6.3-8.2) g/dL Albumin 4.2 (3.5-5.0) g/dL Calcium panel 12/20/20 Range/Units 06:53 Calcium 9.3 (8.4-10.2) mg/dL Albumin 4.2 (3.5-5.0) g/dL Pituitary panel 12/20/20 Range/Units 06:53 Sodium 142 (137-145) mmol/L Potassium 3.8 (3.5-5.1) mmol/L Chloride 109 H (98-107) mmol/L Carbon Dioxide 26 (22-30) mmol/L BUN 14 (7-17) mg/dL Creatinine 0.74 (0.52-1.04) mg/dL Glucose 110 H (74-99) mg/dL Calcium 9.3 (8.4-10.2) mg/dL Adrenal panel 12/20/20 Range/Units 06:53 Sodium 142 (137-145) mmol/L Potassium 3.8 (3.5-5.1) mmol/L Chloride 109 H (98-107) mmol/L Carbon Dioxide 26 (22-30) mmol/L BUN 14 (7-17) mg/dL Creatinine 0.74 (0.52-1.04) mg/dL Glucose 110 H (74-99) mg/dL Calcium 9.3 (8.4-10.2) mg/dL Total Bilirubin 0.7 (0.2-1.3) mg/dL AST 27 (14-36) U/L ALT 22 (4-34) U/L Alkaline Phosphatase 94 (38-126) U/L Total Protein 6.4 (6.3-8.2) g/dL Albumin 4.2 (3.5-5.0) g/dL - Imaging CT scan - chest: report reviewed, image reviewed EKG: image reviewed Assessment and Plan Assessment: 1. Recurrent right pleural effusion, cytology has been negative for malignancy 2. History of small cell lung cancer, left lung, status post 29 radiation treatments and 7 chemotherapy treatments in 2016 3. Hyperlipidemia 4. Hypothyroidism 5. History of hypertension 6. COPD 7. History of atrial flutter, currently in normal sinus rhythm 8. History of DVT to her right axillary vein, right jugular vein and right subclavian vein 9. History of Dysphagia 10. History of bipolar disorder with history of lithium toxicity 11. History of essential tremor Plan: The patient was seen and examined at her bedside in the emergency department. Her chart and diagnostics were reviewed. Her case was discussed in detail with Dr. Armando Ford from cardiothoracic surgery. She will be made nothing by mouth after midnight for evaluation for possible right-sided Pleurx catheter placement. Medical management and other comorbidities per primary care service. Bronchodilators and oxygen management per pulmonary medicine recommendations. We will order an incentive spirometry and recommend use 10 times every hour while awake. More recommendations to follow based on patient's clinical course. Thank you Dr. Cullen for this consult and we will look for to working with you in the care of this patient. Time with Patient: Greater than 30
[2020-12-20] MEDS: SYMBICORT 160-4.5 MCG INHALER INHALATION PRN (19:29)
[2020-12-20] MEDS: ATORVASTATIN 20 MG TAB PO SCH (21:00)
[2020-12-20] MEDS: OLANZapine 2.5 MG TAB PO SCH (21:00)
[2020-12-21] MEDS: LEVOTHYROXINE 100 MCG TAB PO SCH (05:46)
[2020-12-21] MEDS: methylPREDNISolone SOD SUCCI 40 MG/ML 1 ML VIAL IV SCH ×3 (07:37→22:58)
[2020-12-21] MEDS: SYMBICORT 160-4.5 MCG INHALER INHALATION PRN ×2 (07:46→20:10)
[2020-12-21] MEDS: IPRATROPIUM-ALBUTEROL 3 ML NEB INHALATION SCH ×4 (07:46→20:10)
[2020-12-21] MEDS: ALPRAZolam 0.25 MG TAB PO SCH ×3 (08:59→21:21)
[2020-12-21] MEDS: FLUoxetine HCL 20 MG CAP PO SCH (08:59)
[2020-12-21] MEDS: atenoloL 50 MG TAB PO SCH (09:00)
[2020-12-21] MEDS ORDERED: LACTATED RINGERS 1,000 ML IV ONE (12:25)
[2020-12-21] MEDS ORDERED: LIDOCAINE 1% INJ 10MG/ML (20 ML MDV) SQ ONE ×2 (12:28→12:59)
[2020-12-21] MEDS ORDERED: PROPOFOL 10 MG/ML 20 ML VIAL IV ONE (12:33)
[2020-12-21] MEDS ORDERED: fentaNYL (PF) 50 MCG/ML 2 ML AMP ONE (12:33)
[2020-12-21] MEDS ORDERED: MIDAZOLAM 2 MG/2 ML VIAL ONE (12:33)
--- NOTE | 2020-12-21 12:54 | P.PN ---
Subjective Progress Note Date: 12/21/20 Principal diagnosis: Dyspnea, COPD, hypoxemia, recurrent pleural effusion This is a 80-year-old female, who sees one of my partners for COPD, and recurrent right-sided pleural effusion. 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 She presents to the emergency department with increasing shortness of breath. The patient apparently has recurrent right-sided pleural effusion and has had thoracentesis twice. She apparently recently saw one of the cardiothoracic surgeons for a possibility of a Pleurx catheter placement. That apparently will be done on Friday. The patient states that the fluid drained twice, has been negative cytologically. Currently, the patient's on 4 L nasal cannula. She usually uses 2 L at home. She tested negative for coronavirus. She's not receiving any IV fluids. 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 White count 5.5, hemoglobin, hematocrit, normal. Platelet count 147,000. PT, INR, and PTT are all normal. Sodium 142, potassium 3.8, chlorides 109, CO2 26, anion gap 7, BUN 14, and creatinine 0.74. Computed tomography scan of the chest shows evidence of a recurrent right-sided pleural effusion, which is moderate in size, and emphysematous changes throughout both lungs. On 12/21/2020 patient seen in follow-up on medical surgical floor, she is resting comfortably in bed, no worsening dyspnea, no complaints of chest discom fort, currently on 2 L of oxygen pulse ox is 97%, she is breathing comfortably, she's had no fever or chills, he was tested for COVID-19 and was found to be negative. Admission blood work has been reviewed. Patient remains on IV Solu- Medrol at 40 mg every 8 hours, she is on Symbicort, and DuoNeb nebulized treatments 4 acute exacerbation of COPD, he has been nothing by mouth after midnight for placement of right-sided Pleurx catheter for recurrent pleural effusion Objective - Vital Signs Vital signs: Vital Signs Temp 97.8 F 05/20/21 12:19 Pulse 72 12/21/20 12:19 Resp 20 12/21/20 12:19 BP 124/63 12/21/20 12:19 Pulse Ox 97 12/21/20 12:19 Intake & Output 12/20/20 12/21/20 12/21/20 18:59 06:59 18:59 Weight 65.317 kg Other: # Voids 1 - Exam GENERAL EXAM: Alert, very pleasant, 80-year-old white female, on 2 L of oxygen a pulse ox of 97% comfortable in no apparent distress. HEAD: Normocephalic/atraumatic. EYES: Normal reaction of pupils, equal size. Conjunctiva pink, sclera white. NOSE: Clear with pink turbinates. THROAT: No erythema or exudates. NECK: No masses, no JVD, no thyroid enlargement, no adenopathy. CHEST: No chest wall deformity. Symmetrical expansion. LUNGS: Equal air entry with diminished breath sounds at the right base CVS: Regular rate and rhythm, normal S1 and S2, no gallops, no murmurs, no rubs ABDOMEN: Soft, nontender. No hepatosplenomegaly, normal bowel sounds, no guarding or rigidity. EXTREMITIES: No clubbing, no edema, no cyanosis, 2+ pulses and upper and lower extremities. MUSCULOSKELETAL: Muscle strength and tone normal. SPINE: No scoliosis or deformity SKIN: No rashes CENTRAL NERVOUS SYSTEM: Alert and oriented -3. No focal deficits, tone is normal in all 4 extremities. PSYCHIATRIC: Alert and oriented -3. Appropriate affect. Intact judgment and insight. - Labs CBC & Chem 7: 12/20/20 06:53 12/20/20 06:53 Assessment and Plan Plan: Assessment: #1. Acute hypoxic respiratory failure, multifactorial, related to acute exacerbation of COPD, recurrent right-sided pleural effusion which has been tested and was found to be cytologically negative. Patient is scheduled for Pleurx catheter today on 12/22/2020 #2. Prior history of small cell lung cancer, in the left lung, status post chemoradiation #3. History of hyperlipidemia #4. History of hypothyroidism #5. History of COPD #6. History of hypertension #7. History of atrial flutter #8. History of right upper extremity DVT #9. History of essential tremor #10. History of migraine cephalgia Plan: Continue IV steroids Continue breathing treatments Case discussed with cardiothoracic surgery and patient is scheduled for Pleurx catheter placement this afternoon The fluid will be sent for cultures and cytology We'll continue to follow I performed a history & physical examination of the patient and discussed their management with my nurse practitioner, Shayy Harmon. I reviewed the nurse practitioner's note and agree with the documented findings and plan of care. Lung sounds are positive for diminished breath sounds. The findings and the impression was discussed with the patient. I attest to the documentation by the nurse practitioner. Time with Patient: Less than 30
--- NOTE | 2020-12-21 14:11 | XR ---
EXAMINATION TYPE: XR chest 1V portable DATE OF EXAM: 10/22/2020 HISTORY: post op right Pleurx placement COMPARISON: None. TECHNIQUE: Single view of the chest is submitted. FINDINGS: Demonstrated are scattered senescent parenchymal change. Hyperinflation compatible with COPD. Right basilar catheter noted without evidence for pneumothorax. There is no evidence for focal infiltrate. The heart is stable. Hilar and mediastinal structures are within normal limits. Degenerative changes are seen of the dorsal spine. IMPRESSION: 1. Chronic changes without evidence for acute pulmonary disease.
[2020-12-21] MEDS ORDERED: ACETAMINOPHEN TAB 500 MG TAB PO PRN (15:12)
--- NOTE | 2020-12-21 15:17 | P.PN ---
Subjective Progress Note Date: 12/21/20 - History of Present Illness 82-year-old female came in with comments of shortness of breath found to have right-sided pleural effusion. Patient has a recurrent pleural effusion this a third episode. Patient is found to have moderate effusion patient doesn't wear oxygen presently on 4 L of oxygen. Patient does have a history of small cell lung cancer which has been in remission this is a left-sided lung cancer patient has been in remission for about 4 years. Patient received chemotherapy and radiation therapy at that time. The fluid that was obtained from previous tho racentesis did not show any malignancy. Patient is supposed to follow-up with carotid thoracic surgery for possible Pleurx catheter placement 12/21/2020 Patient is seen and evaluated and follow-up with no acute overnight issues. Patient continues on 4 L of oxygen and states they normally uses up to 2 L of oxygen at home as needed and shortness of breath continues. Being followed by pulmonary along with cardiothoracic surgery and awaiting Pleurx catheter placement today for continued pleural effusion noted on the right. Fluid analysis was also sent again during Pleurx catheter placement. Review of systems: Constitutional: No reports of fatigue, fever, or chills Cardiovascular: No reports of chest pain or palpitations Respiratory: reports of shortness of breath GI: No reports of nausea, vomiting, or diarrhea : No reports of dysuria or retention Neurovascular: No reports of weakness or numbness All medications have been reviewed Objective - Vital Signs Vital signs: Vital Signs Temp 97.6 F 12/21/20 07:55 Pulse 66 12/21/20 07:57 Resp 18 12/21/20 07:55 BP 153/78 12/21/20 07:55 Pulse Ox 94 L 12/21/20 07:55 Intake & Output 12/20/20 12/21/20 12/21/20 18:59 06:59 18:59 Weight 65.317 kg Other: # Voids 1 - Exam GENERAL: The patient is alert and oriented x3, not in any acute distress. Well developed, well nourished. HEENT: Pupils are round and equally reacting to light. EOMI. No scleral icterus. No conjunctival pallor. Normocephalic, atraumatic. No pharyngeal erythema. No thyromegaly. CARDIOVASCULAR: S1 and S2 present. No murmurs, rubs, or gallops. PULMONARY: Decreased air entry into right posterior and inferior lung hu, new Pleurx catheter noted in the right ABDOMEN: Soft, nontender, nondistended, normoactive bowel sounds. No palpable organomegaly. MUSCULOSKELETAL: No joint swelling or deformity. EXTREMITIES: No cyanosis, clubbing, or pedal edema. NEUROLOGICAL: Gross neurological examination did not reveal any focal deficits. SKIN: No rashes. - Labs CBC & Chem 7: 12/20/20 06:53 12/20/20 06:53 Assessment and Plan Assessment: -acute hypoxic respiratory failure requiring 4 L of oxygen: Secondary to right- sided pleural effusion patient has recurrent pleural effusion. Pulmonology and cardiac thoracic surgery following status post Pleurx catheter placement -History of small cell lung cancer in remission for last 4 years -hyperlipidemia -Hypertension -History of COPD without any acute exacerbation -History of atrial flutter presently rate controlled. -History of DVT in the right upper extremity in the past -Migraine history Plan: Patient is status post Pleurx catheter placement with pulmonary and cardiothoracic surgery following. Will continue to monitor closely and discuss with pulmonary along with vascular about treatment plan moving forward. Possible discharge in 24 hours.
[2020-12-21 15:44] VITALS: BMI 23.9
[2020-12-21] MEDS: SODIUM CHLORIDE 0.9% 1,000 ML IV SCH (16:22)
[2020-12-21] MEDS: ATORVASTATIN 20 MG TAB PO SCH (21:21)
[2020-12-21] MEDS: OLANZapine 2.5 MG TAB PO SCH (21:22)
--- NOTE | 2020-12-22 04:06 | OP ---
OPERATIVE REPORT DATE OF THE SURGERY: 12/21/2020. SURGEON: Dr. Armando Ford. PREOPERATIVE DIAGNOSIS: Recurrent right-sided pleural effusion, remote history of small cell carcinoma on the left side with no evidence of recurrence and negative cytology. POSTOPERATIVE DIAGNOSIS: Recurrent right-sided pleural effusion, remote history of small cell carcinoma on the left side with no evidence of recurrence and negative cytology. PROCEDURE PERFORMED: Insertion of a right PleurX catheter under local anesthesia with IV sedation. INDICATION FOR SURGERY: The patient is a lady who was treated remotely for the left-sided small cell carcinoma with chemotherapy with remission. The patient had a recurrent right-sided pleural effusion was tapped twice over [address] Lucio. Cytology was negative. The fluid is at this point is back and we were asked to insert a PleurX catheter. Risks, benefits, alternatives were discussed with the patient and her . They understood and agreed to proceed. DESCRIPTION OF PROCEDURE: Patient was brought to the operating room where appropriate time-out was conducted. She received 2 g of cefazolin intravenously. The chest was prepped and draped using ChloraPrep. The patient was given some IV sedation. Local anesthesia was achieved with a total of 15 mL of lidocaine 1%. The site of the chest entry had been marked by ultrasound that I performed before the case. That side was accessed simply with a fine needle that had anesthetic in it and confirmed the presence of the fluid which was name nellie in color. Local anesthesia was given again at that time, and using modified Seldinger technique, I inserted a wire into the chest. Subsequently, a counter incision was made in the right upper quadrant of around 1 cm and a PleurX catheter was tunneled from that area to the site of the needle entry and wire entry to the chest that had been also enlarged with a 15 blade needle to around 1 cm. Subsequently, a peel-away sheath was inserted over the wire and then the dilator and wires were removed as we inserted the catheter through the sheath. Subsequently, the peel-away sheath was retrieved. The catheter was nicely covered in the subcutaneous tissue and with no kink in it. The system was connected to drainage bottles and we drained a total of 1300 mL of nellie looking fluid that was sent to cytology. The site entry point was closed with one Vicryl subcutaneous suture and Dermabond. The abdomen exit site had been also approximated partially with a Vicryl and the catheter was affixed to the skin with a silk 2-0. Patient tolerated procedure well and was transferred to the recovery room in stable condition. ZONIA / PATRICIA: [id number] /
[2020-12-22] MEDS: LEVOTHYROXINE 100 MCG TAB PO SCH (05:47)
[2020-12-22] MEDS: IPRATROPIUM-ALBUTEROL 3 ML NEB INHALATION SCH ×3 (07:11→15:27)
[2020-12-22] MEDS: SYMBICORT 160-4.5 MCG INHALER INHALATION PRN (07:12)
[2020-12-22 08:00] VITALS: RESP 16
[2020-12-22] MEDS: FLUoxetine HCL 20 MG CAP PO SCH (08:08)
[2020-12-22] MEDS: atenoloL 50 MG TAB PO SCH (08:08)
[2020-12-22] MEDS: methylPREDNISolone SOD SUCCI 40 MG/ML 1 ML VIAL IV SCH (08:08)
[2020-12-22] MEDS: ALPRAZolam 0.25 MG TAB PO SCH (08:08)
--- NOTE | 2020-12-22 09:27 | XR ---
EXAMINATION TYPE: XR chest 2V DATE OF EXAM: 12/22/2020 COMPARISON: Chest x-ray 12/21/2020 HISTORY: Pleural catheter placement TECHNIQUE: Frontal and lateral views of the chest are obtained. FINDINGS: Right-sided pleural drainage catheter has been placed as on prior exam. No evident pneumot horax. Minimal patchy basilar density is again seen. Cardiac mediastinal silhouette is stable. IMPRESSION: Stable exam. No evident complication status post catheter placement
--- NOTE | 2020-12-22 09:34 | P.PN ---
Subjective Progress Note Date: 12/22/20 Principal diagnosis: Recurrent right-sided pleural effusion, shortness of breath. 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 POD #1 insertion of right Pleurx catheter under local anesthesia with IV sedation. The patient was seen in follow-up today 12/22/2020 at her bedside on the fourth floor medical surgical unit. Currently she is sitting up to the bedside chair, eating breakfast, is awake, alert and oriented 3 and is in no acute distress. Denies any complaints of pain or shortness of breath at this time. Oxygen sat urations are 92% on 2 L nasal cannula. Achieving 2000 mL on her incentive spirometry. The patient reports that she uses 2 L of home oxygen. Pleurx catheter site is clean, dry with dressing clean, dry and in place. The patient reports that she has been up ambulating in the hallway with minimal assistance from nursing staff. She remains afebrile. Once the patient's arrived this morning teaching for Pleurx catheter drainage will be completed with the patient and her . Objective - Vital Signs Vital signs: Vital Signs Temp 98.0 F 12/22/20 07:59 Pulse 63 12/22/20 07:59 Resp 16 12/22/20 07:59 BP 121/76 12/22/20 07:59 Pulse Ox 92 L 12/22/20 08:19 Intake & Output 12/21/20 12/22/20 12/22/20 18:59 06:59 18:59 Intake Total 375 240 Output Total 1503 200 Balance -1128 40 Weight 65.317 kg Intake: IV 375 Intake, IV Titration 240 Amount Sodium Chloride 0.9% 1, 240 000 ml @ 20 mls/hr IV . Q24H RUBIA Rx#:[id number] Output: Urine 200 Pleural Fluid 1500 Estimated Blood Loss 3 Other: Voiding Method Toilet Toilet # Voids 1 - Exam CONSTITUTIONAL: Sitting up to the bedside edge on the fourth floor medical surgical unit, appears comfortable, cooperative, no apparent acute distress. HEENT: Neck is supple, no JVD, no lymphadenopathy. No scleral icterus. Mucous membranes are moist and pink. Dentures. RESPIRATORY: Lungs sounds essentially clear throughout, diminished to her right lower lobe. Respirations are symmetrical and nonlabored. Currently on 2 L nasal cannula with oxygen saturations 92%. Able to achieve 2000 mL on their incentive spirometry. Strong cough. CARDIOVASCULAR: Regular rhythm and rate. S1 and S2 present, negative for S3, gallop or murmur. Sequential compression devices in place to his bilateral lower extremities. GASTROINTESTINAL: Abdomen soft, nontender, nondistended. Active bowel sounds present 4 quadrants. Tolerating diet. Passing flatus. No guarding or rigidity. GENITOURINARY: Continues to void. INTEGUMENTARY: Skin is warm and dry. No clubbing or cyanosis is present. No rash or abnormal pigmentation is present. NEUROLOGIC: Cranial nerves II through XII intact. No focal deficits. MUSKULOSKELETAL: Able to move all extremities, strength equal bilaterally. PSYCHIATRIC: Alert and oriented to person place and time, appropriate affect, intact judgment and insight. INVASIVE LINES AND TUBES: Right chest Pleurx catheter in place. Dressing is clean, dry and intact. - Labs CBC & Chem 7: 12/20/20 06:53 12/20/20 06:53 Assessment and Plan Assessment: 1. Recurrent right pleural effusion, cytology has been negative for malignancy, status post right chest Pleurx catheter placement 2. History of small cell lung cancer, left lung, status post 29 radiation treatments and 7 chemotherapy treatments in 2016 3. Hyperlipidemia 4. Hypothyroidism 5. History of hypertension 6. COPD 7. History of atrial flutter, currently in normal sinus rhythm 8. History of DVT to her right axillary vein, right jugular vein and right subclavian vein 9. History of Dysphagia 10. History of bipolar disorder with history of lithium toxicity 11. History of essential tremor Plan: 1. Once the patient's arrives, Pleurx catheter drainage and care will be completed with the patient and her . 2. Encourage use of her incentive spirometry 10 times every hour while awake. 3. Oxygen management and recommendations per pulmonary for/critical care medicine. 4. Increase activity as tolerated. 5. Medical management and other comorbidities per primary care service. 6. Once Pleurx catheter teaching has been completed with the patient and her per the cardiothoracic surgery standpoint the patient can be discharged home when okay with primary care service and other consultants. 7. More recommendations to follow based on patient's clinical course. Time with Patient: Greater than 30
--- NOTE | 2020-12-22 13:16 | P.DS ---
Providers Date of admission: 12/20/20 08:56 Expected date of discharge: 12/22/20 Attending physician: Richard Gregorio Consults: 12/20/20 09:04 Consult Physician Routine Consulting Provider: Polo Cullen Consult Reason/Comments: pleural effusion, Do you want consulting provider notified?: Yes 12/20/20 11:10 Consult Physician Routine Consulting Provider: Armando Ford Consult Reason/Comments: pleural effusion Do you want consulting provider notified?: Yes Primary care physician: Yao Haywood MD Hospital Course: Final diagnosis -acute hypoxic respiratory failure requiring 4 L of oxygen: Secondary to right- sided pleural effusion patient has recurrent pleural effusion. -status post right side Pleurx catheter placement -History of small cell lung cancer in remission for last 4 years -hyperlipidemia -Hypertension -History of COPD without any acute exacerbation -History of atrial flutter presently rate controlled. -History of DVT in the right upper extremity in the past -Migraine history Discharge disposition Patient is being discharged in a stable condition with guarded prognosis to home. Patient will follow-up with Dr. Yao Hoover upon discharge. Patient also instructed to follow-up with pulmonary and cardiothoracic in the outpatient setting . Patient will have home care in the outpatient setting. Total time taken is greater than 35 minutes. Hospital course 82-year-old female came in with comments of shortness of breath found to have right-sided pleural effusion. Patient has a recurrent pleural effusion this a third episode. Patient is found to have moderate effusion patient doesn't wear oxygen presently on 4 L of oxygen. Patient does have a history of small cell lung cancer which has been in remission this is a left-sided lung cancer patient has been in remission for about 4 years. Patient received chemotherapy and radiation therapy at that time. The fluid that was obtained from previous thoracentesis did not show any malignancy. Patient is supposed to follow-up with carotid thoracic surgery for possible Pleurx catheter placement 12/21/2020 Patient is seen and evaluated and follow-up with no acute overnight issues. Patient continues on 4 L of oxygen and states they normally uses up to 2 L of oxygen at home as needed and shortness of breath continues. Being followed by pulmonary along with cardiothoracic surgery and awaiting Pleurx catheter placement today for continued pleural effusion noted on the right. Fluid analysis was also sent again during Pleurx catheter placement. 12/22/2020 Patient is evaluated in follow-up this morning with no acute overnight issues. Right-sided Pleurx catheter placed with cardiothoracic surgery and will likely follow up with pulmonary along with them in the outpatient setting. Pleurx catheter education is being provided prior to discharge to the patient along with her and will continue with home care in the outpatient setting. Patient denies any worsening shortness of breath and is tolerating on 2 L and she does have home oxygen in the outpatient setting. Patient is asking when she can go home. Currently no reports of chest pain, shortness of breath, or palpitations. Patient is afebrile. No reports of nausea or vomiting and patient is tolerating diet. Patient will be discharged home today. On exam vital signs are stable. Cardio S1, S2 are muffled. Respiratory shows diminished breath sounds at the bases with no wheezing or rhonchi noted. Abdomen is soft and nontender. Nervous system shows no focal deficits. Please refer to medication reconciliation sheet for a list of medications. Patient Condition at Discharge: Stable Plan - Discharge Summary Discharge Rx Participant: No New Discharge Prescriptions: New Acetaminophen Tab [Tylenol] 1,000 mg PO Q6HR PRN #30 tab PRN Reason: Fever And/ Or Pain Continue Atorvastatin [Lipitor] 20 mg PO HS Levothyroxine Sodium [Synthroid] 100 mcg PO DAILY atenoloL [Tenormin] 50 mg PO DAILY Budesonide-Formot 160-4.5 Mcg [Symbicort 160-4.5 Mcg Inhaler] 2 puff I NHALATION RT-BID PRN PRN Reason: Shortness Of Breath Albuterol Sulfate [Ventolin HFA] 2 puff INHALATION RT-Q4H PRN PRN Reason: Shortness Of Breath Albuterol Nebulized [Ventolin Nebulized] 2.5 mg INHALATION RT-Q6H PRN PRN Reason: Shortness Of Breath OLANZapine [ZyPREXA] 2.5 mg PO HS #30 tab ALPRAZolam [Xanax] 0.25 mg PO TID FLUoxetine HCL [PROzac] 40 mg PO DAILY Discharge Medication List Atorvastatin [Lipitor] 20 mg PO HS 02/07/16 [History] Levothyroxine Sodium [Synthroid] 100 mcg PO DAILY 02/07/16 [History] atenoloL [Tenormin] 50 mg PO DAILY 02/07/16 [History] Budesonide-Formot 160-4.5 Mcg [Symbicort 160-4.5 Mcg Inhaler] 2 puff INHALATION RT-BID PRN 06/03/17 [History] Albuterol Sulfate [Ventolin HFA] 2 puff INHALATION RT-Q4H PRN 09/10/20 [History] OLANZapine [ZyPREXA] 2.5 mg PO HS #30 tab 10/25/20 [Rx] ALPRAZolam [Xanax] 0.25 mg PO TID 12/20/20 [History] Albuterol Nebulized [Ventolin Nebulized] 2.5 mg INHALATION RT-Q6H PRN 12/20/20 [History] FLUoxetine HCL [PROzac] 40 mg PO DAILY 12/20/20 [History] Acetaminophen Tab [Tylenol] 1,000 mg PO Q6HR PRN #30 tab 12/22/20 [Rx] Follow up Appointment(s)/Referral(s): Yao Haywood MD [Primary Care Provider] - 1-2 days [facility], [NON-STAFF] - ([facility] will call you to set up your first visit when they will begin teaching about the pleurx catheter. ) Activity/Diet/Wound Care/Special Instructions: Pleurx catheter education prior to discharge PleurX supplies ordered through [employer]. Please call them if you have questions: [phone]. Activity limited until follow-up Follow-up with primary care provider upon discharge Follow-up pulmonary outpatient Continue current diet Discharge Disposition: HOME WITH HOME HEALTH SERVICES
--- NOTE | 2020-12-22 13:43 | P.PN ---
Subjective Progress Note Date: 12/22/20 Principal diagnosis: Recurrent right-sided pleural effusion This is a 80-year-old female, who sees one of my partners for COPD, and recurrent right-sided pleural effusion. 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 She presents to the emergency department with increasing shortness of breath. The patient apparently has recurrent right-sided pleural effusion and has had thoracentesis twice. She apparently recently saw one of the cardiothoracic surgeons for a possibility of a Pleurx catheter placement. That apparently will be done on Friday. The patient states that the fluid drained twice, has been negative cytologically. Currently, the patient's on 4 L nasal cannula. She usually uses 2 L at home. She tested negative for coronavirus. She's not receiving any IV fluids. 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 White count 5.5, hemoglobin, hematocrit, normal. Platelet count 147,000. PT, INR, and PTT are all normal. Sodium 142, potassium 3.8, chlorides 109, CO2 26, anion gap 7, BUN 14, and creatinine 0.74. Computed tomography scan of the chest shows evidence of a recurrent right-sided pleural effusion, which is moderate in size, and emphysematous changes throughout both lungs. On 12/21/2020 patient seen in follow-up on medical surgical floor, she is resting comfortably in bed, no worsening dyspnea, no complaints of chest discomfort, currently on 2 L of oxygen pulse ox is 97%, she is breathing comfortably, she's had no fever or chills, he was tested for COVID-19 and was found to be negative. Admission blood work has been reviewed. Patient remains on IV Solu-Medrol at 40 mg every 8 hours, she is on Symbicort, and DuoNeb nebulized treatments 4 acute exacerbation of COPD, he has been nothing by mouth after midnight for placement of right-sided Pleurx catheter for recurrent pleural effusion The patient was seen today 12/22/2020 in follow-up on the regular medical floor. She is currently up ambulating in her room. Awake and alert in no acute distress. Chest x-ray reveals improvement in the right sided pleural effusion. Status post Pleurx catheter placement yesterday. She remains on IV Cymetra, bronchodilators. Working well with the incentive spirometer. Objective - Vital Signs Vital signs: Vital Signs Temp 98.0 F 12/22/20 07:59 Pulse 68 12/22/20 11:29 Resp 16 12/22/20 07:59 BP 121/76 12/22/20 07:59 Pulse Ox 92 L 12/22/20 08:19 Intake & Output 12/21/20 12/22/20 12/22/20 18:59 06:59 18:59 Intake Total 375 240 Output Total 1503 200 Balance -1128 40 Weight 65.317 kg Intake: IV 375 Intake, IV Titration 240 Amount Sodium Chloride 0.9% 1, 240 000 ml @ 20 mls/hr IV . Q24H RUBIA Rx#:[id number] Output: Urine 200 Pleural Fluid 1500 Estimated Blood Loss 3 Other: Voiding Method Toilet Toilet # Voids 1 - Exam GENERAL EXAM: Alert, active, very pleasant 80-year-old female patient, on 2 L nasal cannula, comfortable in no apparent distress. HEAD: Normocephalic. EYES: Normal reaction of pupils, equal size. NOSE: Clear with pink turbinates. THROAT: No erythema or exudates. NECK: No masses, no JVD. CHEST: No chest wall deformity. Right-sided Pleurx catheter in place LUNGS: Equal air entry with crackles in the right base CVS: S1 and S2 normal with no audible murmur, regular rhythm. ABDOMEN: No hepatosplenomegaly, normal bowel sounds, no guarding or rigidity. SPINE: No scoliosis or deformity SKIN: No rashes CENTRAL NERVOUS SYSTEM: No focal deficits, tone is normal in all 4 extremities. EXTREMITIES: There is no peripheral edema. No clubbing, no cyanosis. Peripheral pulses are intact. - Labs CBC & Chem 7: 12/20/20 06:53 12/20/20 06:53 Assessment and Plan Assessment: 1 Acute hypoxic respiratory failure, multifactorial, related to acute exacerbation of COPD, recurrent right-sided pleural effusion which has been tested and was found to be cytologically negative. Pleurx catheter Lasix on 12/22/2020 2 Prior history of small cell lung cancer, in the left lung, status post chemoradiation 3 History of hyperlipidemia 4 History of hypothyroidism 5 History of COPD 6 History of hypertension 7 History of atrial flutter 8 History of right upper extremity DVT 9 History of essential tremor 10 History of migraine cephalgia Plan: The patient was seen and evaluated by Dr. Cullen Chest x-ray reviewed For discharge from the pulmonary standpoint Complete a prednisone taper Continue her home pulmonary medications Follow up in our office in 1-2 weeks' I, the cosigning physician, performed a history & physical examination of the patient. Lungs sounds with crackles in the right base. Maintaining good O2 saturations in the 90s on 2 L/m per nasal cannula. I discussed the assessment and plan of care with my nurse practitioner, Adilene Garcia. I attest to the above note as dictated by her.
[2020-12-22 14:35] VITALS: BP 124/59; PULSE 75; TEMP 97.6
== END 2020-12-22 15:00 | disposition home health service (06) | DRG 186 ==
LOC: EC 06:31 → 5NMEDONC 08:56 → 4SSUR 16:56
PROVIDERS: ADMIT Internal Medicine; ATTEND Internal Medicine
PROC: 0W9930Z Drainage of Right Pleural Cavity with Drainage Device, Percutaneous Approach (ICD-10-PCS; principal; 2020-12-21 11:20)
DX: J90 Pleural effusion, not elsewhere classified (principal); J96.01 Acute respiratory failure with hypoxia; J44.1 Chronic obstructive pulmonary disease with (acute) exacerbation; Z20.822 Contact with and (suspected) exposure to COVID-19; Z87.01 Personal history of pneumonia (recurrent); E03.9 Hypothyroidism, unspecified; E78.5 Hyperlipidemia, unspecified; F31.9 Bipolar disorder, unspecified; G25.0 Essential tremor; G43.909 Migraine, unspecified, not intractable, without status migrainosus; F40.240 Claustrophobia; I10 Essential (primary) hypertension; Z79.51 Long term (current) use of inhaled steroids; Z79.890 Hormone replacement therapy; Z79.899 Other long term (current) drug therapy; Z80.1 Family history of malignant neoplasm of trachea, bronchus and lung; Z85.118 Personal history of other malignant neoplasm of bronchus and lung; Z86.718 Personal history of other venous thrombosis and embolism; Z87.891 Personal history of nicotine dependence; Z90.710 Acquired absence of both cervix and uterus; Z92.21 Personal history of antineoplastic chemotherapy; Z92.3 Personal history of irradiation; Z99.81 Dependence on supplemental oxygen; Z91.040 Latex allergy status; Z82.3 Family history of stroke; Z86.010 Personal history of colon polyps; Z90.89 Acquired absence of other organs; Z90.49 Acquired absence of other specified parts of digestive tract
CPT/HCPCS: 36415; 71045; 71046; 71250; 80053; 83735; 83880; 84484; 85025; 85610; 85730; 87635; 88108; 88305; 88341; 88342; 93005; 94640; 94760; 99285

== ENCOUNTER → 2021-01-12 | Outpatient (CLI) | payer MEDICARE, BC | END | disposition home or self-care (01) | LOC: LABWHC1 09:23 | PROVIDERS: ATTEND Internal Medicine Critical Care Medicine | DX: Z53.9 Procedure and treatment not carried out, unspecified reason (principal) ==

== ENCOUNTER 2021-02-10 11:05 | Inpatient (IN) | payer MEDICARE, BC ==
[2021-02-10 12:31] LABS: Basophils % (A) 0 %; Eosinophils # (A) 0.1 k/uL (0-0.7); Eosinophils % (A) 1 %; HCT 46.4 % (34.0-46.0); Lymphocytes # (A) 0.4 k/uL (1.0-4.8); Lymphocytes % (A) 7 %; MCH 30.7 pg (25.0-35.0); MCHC 32.3 g/dL (31.0-37.0); Mean Platelet Volume 7.1; Monocytes # (A) 0.3 k/uL (0-1.0); Monocytes % (A) 6 %; Neutrophils # (A) 4.2 k/uL (1.3-7.7); Neutrophils % (A) 84 %; Platelet Count 139 k/uL (150-450); RBC 4.88 m/uL (3.80-5.40); RDW 13.2 % (11.5-15.5)
[2021-02-10 12:44] LABS: ALT 23 U/L (4-34); African American GFR (CKD) >90 (>60 ml/min/1.73 sqM); Albumin 3.8 g/dL (3.5-5.0); Anion Gap 6 mmol/L; Blood Urea Nitrogen 20 mg/dL (7-17); Calcium 9.4 mg/dL (8.4-10.2); Carbon Dioxide 28 mmol/L (22-30); Chloride 107 mmol/L (98-107); Glucose 101 mg/dL (74-99); Lithium <0.2 mmol/L; Non-African American GFR(CKD) 86 (>60 ml/min/1.73 sqM); Sodium 141 mmol/L (137-145); Total Bilirubin 0.4 mg/dL (0.2-1.3); Total Protein 6.1 g/dL (6.3-8.2)
[2021-02-10 12:46] LABS: AST 34 U/L (14-36); Potassium 4.1 mmol/L (3.5-5.1)
[2021-02-10 12:47] LABS: Alkaline Phosphatase 99 U/L (38-126)
[2021-02-10 12:55] LABS: Appearance,Urine Clear (Clear); Bilirubin,Urine Negative (Negative); Blood,Urine Negative (Negative); Color,Urine Yellow; Glucose,Urine (UA) Negative (Negative); Ketones,Urine Negative (Negative); Leukocyte Esterase,Urine Negative (Negative); Nitrite,Urine Negative (Negative); PH, Urine 5.5 (5.0-8.0); Protein,Urine Negative (Negative); Specific Gravity,Urine 1.014 (1.001-1.035); Urobilinogen,Urine <2.0 mg/dL (<2.0)
--- NOTE | 2021-02-10 13:13 | ED ---
Psych HPI - General Chief Complaint: Psychiatric Symptoms Stated Complaint: Not feeling well all over/anxiety Time Seen by Provider: 02/10/21 11:38 Source: patient, family Mode of arrival: ambulatory - History of Present Illness Initial Comments: 80-year-old female presents to emergency for psychiatric evaluation. Patient reports she has been feeling more suicidal without a plan over the last 2 months. She believes this is secondary to changing her medication. States used to be on lithium but she had lithium toxicity. She stopped taking the medication. States recently she was started on Zyprexa and Prozac. She believes the medication is not working well. She is also been having thoughts of self-harm. Denies any homicidal thoughts or ideations. is also p resent in the room and is agreeable - Related Data Home Medications Medication Instructions Recorded Confirmed Atorvastatin [Lipitor] 20 mg PO HS 02/07/16 12/20/20 Levothyroxine Sodium [Synthroid] 100 mcg PO DAILY 02/07/16 12/20/20 atenoloL [Tenormin] 50 mg PO DAILY 02/07/16 12/20/20 Budesonide-Formot 160-4.5 Mcg 2 puff INHALATION RT-BID PRN 06/03/17 12/20/20 [Symbicort 160-4.5 Mcg Inhaler] Albuterol Sulfate [Ventolin HFA] 2 puff INHALATION RT-Q4H PRN 09/10/20 12/20/20 ALPRAZolam [Xanax] 0.25 mg PO TID 12/20/20 12/20/20 Albuterol Nebulized [Ventolin 2.5 mg INHALATION RT-Q6H PRN 12/20/20 12/20/20 Nebulized] FLUoxetine HCL [PROzac] 40 mg PO DAILY 12/20/20 12/20/20 Previous Rx's Medication Instructions Recorded OLANZapine [ZyPREXA] 2.5 mg PO HS #30 tab 10/25/20 Acetaminophen Tab [Tylenol] 1,000 mg PO Q6HR PRN #30 tab 12/22/20 Allergies Allergy/AdvReac Type Severity Reaction Status Date / Time latex Allergy Swelling Verified 02/10/21 11:10 Review of Systems ROS Statement: Those systems with pertinent positive or pertinent negative responses have been documented in the HPI. ROS Other: All systems not noted in ROS Statement are negative. 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 History of Any Multi-Drug Resistant Organisms: None Reported Past Surgical History: Adenoidectomy, Appendectomy, Breast Surgery, Hysterectomy, Tonsillectomy Additional Past Surgical History / Comment(s): Bronchoscopy/biopsy, thoracentesis, L pyeloplasty/JJ cath, L breast core bx x3-benign, EGD, col onoscopy/benign polypectomy. Past Anesthesia/Blood Transfusion Reactions: Postoperative Nausea & Vomiting (PONV) Additional Past Anesthesia/Blood Transfusion Reaction / Comment(s): Pt has clausterphobia Past Psychological History: Anxiety, Bipolar, Depression Smoking Status: Former smoker Past Alcohol Use History: None Reported Past Drug Use History: None Reported - Past Family History Father Family Medical History: CVA/TIA Additional Family Medical History / Comment(s): Father of a cerebral hemorrhage at age 48yrs. Mother Family Medical History: Cancer Additional Family Medical History / Comment(s): Mother of lung cancer. Sister(s) Family Medical History: Cancer Additional Family Medical History / Comment(s): Sister of lung cancer General Exam Limitations: no limitations General appearance: alert, in no apparent distress Head exam: Present: atraumatic, normocephalic, normal inspection Eye exam: Present: normal appearance, PERRL, EOMI Pupils: Present: normal accommodation ENT exam: Present: normal exam, normal oropharynx, mucous membranes moist Neck exam: Present: normal inspection. Absent: tenderness Respiratory exam: Present: normal lung sounds bilaterally. Absent: respiratory distress Cardiovascular Exam: Present: regular rate, normal rhythm, normal heart sounds. Absent: systolic murmur Extremities exam: Present: normal inspection, full ROM Back exam: Present: normal inspection, full ROM Neurological exam: Present: alert, oriented X3 Psychiatric exam: Present: normal affect, normal mood Skin exam: Present: warm, dry, intact, normal color Course Vital Signs 02/10/21 02/10/21 02/10/21 11:10 12:15 13:00 Temperature 97.5 F L Pulse Rate 63 Respiratory 16 18 18 Rate Blood Pressure 106/58 O2 Sat by Pulse 95 Oximetry 02/10/21 02/10/21 14:00 15:00 Temperature Pulse Rate Respiratory 18 18 Rate Blood Pressure O2 Sat by Pulse Oximetry Medical Decision Making - Medical Decision Making 72-year-old female presented to emergency for psychiatric evaluation. Physical examination is unremarkable. EPS evaluated patient and she will be admitted for further psychiatric management. Case discussed with physician - Lab Data Result diagrams: 02/10/21 12:03 02/10/21 12:03 Lab Results 02/10/21 02/10/21 02/10/21 Range/Units 12:03 12:03 12:03 WBC 5.0 (3.8-10.6) k/uL RBC 4.88 (3.80-5.40) m/uL Hgb 15.0 (11.4-16.0) gm/dL Hct 46.4 H (34.0-46.0) % MCV 95.0 (80.0-100.0) fL MCH 30.7 (25.0-35.0) pg MCHC 32.3 (31.0-37.0) g/dL RDW 13.2 (11.5-15.5) % Plt Count 139 L (150-450) k/uL MPV 7.1 Neutrophils % 84 % Lymphocytes % 7 % Monocytes % 6 % Eosinophils % 1 % Basophils % 0 % Neutrophils # 4.2 (1.3-7.7) k/uL Lymphocytes # 0.4 L (1.0-4.8) k/uL Monocytes # 0.3 (0-1.0) k/uL Eosinophils # 0.1 (0-0.7) k/uL Basophils # 0.0 (0-0.2) k/uL Sodium 141 (137-145) mmol/L Potassium 4.1 (3.5-5.1) mmol/L Chloride 107 (98-107) mmol/L Carbon Dioxide 28 (22-30) mmol/L Anion Gap 6 mmol/L BUN 20 H (7-17) mg/dL Creatinine 0.64 (0.52-1.04) mg/dL Est GFR (CKD-EPI)AfAm >90 (>60 ml/min/1.73 sqM) Est GFR (CKD-EPI)NonAf 86 (>60 ml/min/1.73 sqM) Glucose 101 H (74-99) mg/dL Calcium 9.4 (8.4-10.2) mg/dL Total Bilirubin 0.4 (0.2-1.3) mg/dL AST 34 (14-36) U/L ALT 23 (4-34) U/L Alkaline Phosphatase 99 (38-126) U/L Total Protein 6.1 L (6.3-8.2) g/dL Albumin 3.8 (3.5-5.0) g/dL Urine Color Yellow Urine Appearance Clear (Clear) Urine pH 5.5 (5.0-8.0) Ur Specific [place] 1.014 (1.001-1.035) Urine Protein Negative (Negative) Urine Glucose (UA) Negative (Negative) Urine Ketones Negative (Negative) Urine Blood Negative (Negative) Urine Nitrite Negative (Negative) Urine Bilirubin Negative (Negative) Urine Urobilinogen <2.0 (<2.0) mg/dL Ur Leukocyte Esterase Negative (Negative) Urine Opiates Screen Not Detected (NotDetected) Ur Oxycodone Screen Not Detected (NotDetected) Urine Methadone Screen Not Detected (NotDetected) Ur Propoxyphene Screen Not Detected (NotDetected) Ur Barbiturates Screen Not Detected (NotDetected) U Tricyclic Antidepress Not Detected (NotDetected) Ur Phencyclidine Scrn Not Detected (NotDetected) Ur Amphetamines Screen Not Detected (NotDetected) U Methamphetamines Scrn Not Detected (NotDetected) U Benzodiazepines Scrn Detected H (NotDetected) [place] <0.2 mmol/L Urine Cocaine Screen Not Detected (NotDetected) U Marijuana (THC) Screen Not Detected (NotDetected) Disposition Clinical Impression: Adjustment reaction of adult life Disposition: ADMITTED IP TO THIS [facility] Condition: Fair Is patient prescribed a controlled substance at d/c from ED?: No Time of Disposition: 14:30
[2021-02-10 13:15] LABS: Amphetamine Screen,Urine Not Detected (NotDetected); Barbiturate Screen,Urine Not Detected (NotDetected); Benzodiazepines Screen,Urine Detected (NotDetected); Cocaine Screen,Urine Not Detected (NotDetected); Methadone Screen, Urine Not Detected (NotDetected); Opiate Screen,Urine Not Detected (NotDetected); Oxycodone Screen, Urine Not Detected (NotDetected); Phencyclidine Screen,Urine Not Detected (NotDetected); Tricyclic Antidepressant,Urine Not Detected (NotDetected); Urn Cannabinoid Scrn Not Detected (NotDetected)
[2021-02-10] MEDS ORDERED: MAGNESIUM HYDROXIDE 2,400 MG/10 ML CUP PO PRN (15:01)
[2021-02-10] MEDS ORDERED: MAG HYDROX/AL HYDROX/SIMETH 30 ML CUP PO PRN (15:01)
[2021-02-10] MEDS ORDERED: ACETAMINOPHEN TAB 325 MG TAB PO PRN (15:01)
[2021-02-10] MEDS ORDERED: ACETAMINOPHEN TAB 500 MG TAB PO PRN (15:03)
[2021-02-10] MEDS ORDERED: SYMBICORT 160-4.5 MCG INHALER INHALATION PRN (15:03)
[2021-02-10] MEDS ORDERED: ALBUTEROL HFA INHALER INHALATION PRN (15:03)
[2021-02-10] MEDS ORDERED: ALBUTEROL NEBULIZED 2.5 MG/3 ML INHALATION PRN ×2 (15:03→15:12)
[2021-02-10] MEDS ORDERED: ALPRAZolam 0.25 MG TAB PO SCH (16:00)
[2021-02-10] MEDS: ALPRAZolam 0.5 MG TAB PO SCH ×2 (16:43→20:14)
[2021-02-10] MEDS: ATORVASTATIN 20 MG TAB PO SCH (20:14)
[2021-02-10] MEDS: OLANZapine 2.5 MG TAB PO SCH (20:14)
[2021-02-11] MEDS: LEVOTHYROXINE 100 MCG TAB PO SCH (06:20)
[2021-02-11 06:52] LABS: Basophils % (A) 0 %; Eosinophils # (A) 0.1 k/uL (0-0.7); Eosinophils % (A) 2 %; HCT 46.4 % (34.0-46.0); HGB 15.1 gm/dL (11.4-16.0); Lymphocytes # (A) 0.6 k/uL (1.0-4.8); Lymphocytes % (A) 11 %; MCH 30.8 pg (25.0-35.0); MCHC 32.5 g/dL (31.0-37.0); MCV 94.9 fL (80.0-100.0); Mean Platelet Volume 6.9; Monocytes # (A) 0.5 k/uL (0-1.0); Monocytes % (A) 9 %; Neutrophils # (A) 3.7 k/uL (1.3-7.7); Neutrophils % (A) 75 %; Platelet Count 134 k/uL (150-450); RDW 13.1 % (11.5-15.5); WBC 4.9 k/uL (3.8-10.6)
[2021-02-11 07:05] LABS: ALT 22 U/L (4-34); AST 29 U/L (14-36); African American GFR (CKD) >90 (>60 ml/min/1.73 sqM); Albumin 3.9 g/dL (3.5-5.0); Alkaline Phosphatase 96 U/L (38-126); Anion Gap 7 mmol/L; Blood Urea Nitrogen 17 mg/dL (7-17); Calcium 9.7 mg/dL (8.4-10.2); Carbon Dioxide 27 mmol/L (22-30); Chloride 108 mmol/L (98-107); Glucose 97 mg/dL (74-99); Non-African American GFR(CKD) 78 (>60 ml/min/1.73 sqM); Sodium 142 mmol/L (137-145); Total Bilirubin 0.5 mg/dL (0.2-1.3); Total Protein 6.1 g/dL (6.3-8.2)
[2021-02-11] MEDS: atenoloL 50 MG TAB PO SCH (07:58)
[2021-02-11] MEDS: ALPRAZolam 0.5 MG TAB PO SCH ×3 (07:58→20:31)
[2021-02-11] MEDS: FLUoxetine HCL 20 MG CAP PO SCH (07:58)
--- NOTE | 2021-02-11 09:58 | P.HP ---
Psychiatric H&P - . H&P Date: 02/11/21 History & Physical: Allergies Allergy/AdvReac Type Severity Reaction Status Date / Time latex Allergy Swelling Verified 02/10/21 17:10 Vital Signs Temp 97.4 F L 02/10/21 16:55 Pulse 62 02/11/21 08:00 Resp 18 02/11/21 08:03 BP 140/82 02/11/21 08:00 Pulse Ox 94 L 02/11/21 08:03 Intake & Output 02/10/21 02/11/21 02/11/21 18:59 06:59 18:59 Weight 62.596 kg 62.8 kg Laboratory Last Values WBC 4.9 k/uL (3.8-10.6) 02/11/21 06:06 RBC 4.90 m/uL (3.80-5.40) 02/11/21 06:06 Hgb 15.1 gm/dL (11.4-16.0) 02/11/21 06:06 Hct 46.4 % (34.0-46.0) H 02/11/21 06:06 MCV 94.9 fL (80.0-100.0) 02/11/21 06:06 MCH 30.8 pg (25.0-35.0) 02/11/21 06:06 MCHC 32.5 g/dL (31.0-37.0) 02/11/21 06:06 RDW 13.1 % (11.5-15.5) 02/11/21 06:06 Plt Count 134 k/uL (150-450) L 02/11/21 06:06 MPV 6.9 02/11/21 06:06 Neutrophils % 75 % 02/11/21 06:06 Lymphocytes % 11 % 02/11/21 06:06 Monocytes % 9 % 02/11/21 06:06 Eosinophils % 2 % 02/11/21 06:06 Basophils % 0 % 02/11/21 06:06 Neutrophils # 3.7 k/uL (1.3-7.7) 02/11/21 06:06 Lymphocytes # 0.6 k/uL (1.0-4.8) L 02/11/21 06:06 Monocytes # 0.5 k/uL (0-1.0) 02/11/21 06:06 Eosinophils # 0.1 k/uL (0-0.7) 02/11/21 06:06 Basophils # 0.0 k/uL (0-0.2) 02/11/21 06:06 Sodium 142 mmol/L (137-145) 02/11/21 06:06 Potassium 4.0 mmol/L (3.5-5.1) 02/11/21 06:06 Chloride 108 mmol/L (98-107) H 02/11/21 06:06 Carbon Dioxide 27 mmol/L (22-30) 02/11/21 06:06 Anion Gap 7 mmol/L 02/11/21 06:06 BUN 17 mg/dL (7-17) 02/11/21 06:06 Creatinine 0.74 mg/dL (0.52-1.04) 02/11/21 06:06 Est GFR (CKD-EPI)AfAm >90 (>60 ml/min/1.73 sqM) 02/11/21 06:06 Est GFR (CKD-EPI)NonAf 78 (>60 ml/min/1.73 sqM) 02/11/21 06:06 Glucose 97 mg/dL (74-99) 02/11/21 06:06 Calcium 9.7 mg/dL (8.4-10.2) 02/11/21 06:06 Total Bilirubin 0.5 mg/dL (0.2-1.3) 02/11/21 06:06 AST 29 U/L (14-36) 02/11/21 06:06 ALT 22 U/L (4-34) 02/11/21 06:06 Alkaline Phosphatase 96 U/L (38-126) 02/11/21 06:06 Total Protein 6.1 g/dL (6.3-8.2) L 02/11/21 06:06 Albumin 3.9 g/dL (3.5-5.0) 02/11/21 06:06 TSH 1.180 mIU/L (0.465-4.680) 02/11/21 06:06 Urine Color Yellow 02/10/21 12:03 Urine Appearance Clear (Clear) 02/10/21 12:03 Urine pH 5.5 (5.0-8.0) 02/10/21 12:03 Ur Specific [place] 1.014 (1.001-1.035) 02/10/21 12:03 Urine Protein Negative (Negative) 02/10/21 12:03 Urine Glucose (UA) Negative (Negative) 02/10/21 12:03 Urine Ketones Negative (Negative) 02/10/21 12:03 Urine Blood Negative (Negative) 02/10/21 12:03 Urine Nitrite Negative (Negative) 02/10/21 12:03 Urine Bilirubin Negative (Negative) 02/10/21 12:03 Urine Urobilinogen <2.0 mg/dL (<2.0) 02/10/21 12:03 Ur Leukocyte Esterase Negative (Negative) 02/10/21 12:03 Urine Opiates Screen Not Detected (NotDetected) 02/10/21 12:03 Ur Oxycodone Screen Not Detected (NotDetected) 02/10/21 12:03 Urine Methadone Screen Not Detected (NotDetected) 02/10/21 12:03 Ur Propoxyphene Screen Not Detected (NotDetected) 02/10/21 12:03 Ur Barbiturates Screen Not Detected (NotDetected) 02/10/21 12:03 U Tricyclic Antidepress Not Detected (NotDetected) 02/10/21 12:03 Ur Phencyclidine Scrn Not Detected (NotDetected) 02/10/21 12:03 Ur Amphetamines Screen Not Detected (NotDetected) 02/10/21 12:03 U Methamphetamines Scrn Not Detected (NotDetected) 02/10/21 12:03 U Benzodiazepines Scrn Detected (NotDetected) H 02/10/21 12:03 [place] <0.2 mmol/L 02/10/21 15:56 Urine Cocaine Screen Not Detected (NotDetected) 02/10/21 12:03 U Marijuana (THC) Screen Not Detected (NotDetected) 02/10/21 12:03 02/11/21 09:45 Reason for admission:80-year-old female presents to emergency for psychiatric evaluation. Patient reports she has been feeling more suicidal without a plan over the last 2 months. She believes this is secondary to changing her medication. States used to be on lithium but she had lithium toxicity. She stopped taking the medication. States recently she was started on Zyprexa and Prozac. She believes the medication is not working well. She is also been having thoughts of self-harm. Denies any homicidal thoughts or ideations. History of present illness: This patient stated that depression has become worse since September 2020. 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 She stated that she has a history of depression for a number of years and was on Zoloft and lithium for more than 25 years. When she got sick in August of this year with a lung infection she developed toxicity to lithium and was taken off of Zoloft and lithium and placed on Zyprexa and Prozac. She stated that the Prozac and Zyprexa has not worked for her and she became suicidal. She has been feeling extremely depressed. Past history she stated that she has a history of depression for a number of years. She was taking her lithium and Zoloft through her family physician up until she had to be taken off of it because of her lithium toxicity in September this year. She stated she was admitted on psychiatric unit at least once before and was under care of Dr. Negrete. Family history she stated she lives with her and has been away from her family because of 10 damage between her and herself they have 5 children. She stated one of her granddaughters may have depression. There is no history of suicide in the family. Medical history she has COPD and other lung condition based she had fluid between the lining and the lung. She has a poor which has to be cleaned every 4 days. The next one is due on Friday. 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 Medication history: She was stable on Zoloft and lithium for a number of years up until she had to be taken off of it. She is on Prozac and Zyprexa now but stated that her medication is not working for her. Substance abuse history: She stated that she is a recovering alcoholic but she has not drank alcohol in 27 years. She denies any history of drug abuse. Suicide or homicide thoughts: She has suicidal thoughts now and had them once before in the past. ALLERGIES and ADR: She denies being ALLERGIC to any medication or having adverse drug reaction to any medication. Mental status examination: This patient appears to be of her stated age and is dressed appropriately. She has adequate speech language and communication skills. Her mood and affect is depressed. Her behavior is cooperative. She does not have any auditory visual or any other types of hallucinations. She does not have any delusions. She does not have flight of ideas or loose associations or any other disorder of thought process. She is alert and oriented to time place and person. She has some insight into her problems but her judgment is impaired. Her memory and other cognitive functions are intact. Diagnostic impression: Major depression recurrent severe Treatment recommendations: Patient will be continued on her medications. She will be monitored in the milieu. She will be encouraged to participate in unit activities as tolerated.
--- NOTE | 2021-02-11 11:14 | P.CONS ---
History of Present Illness - Reason for Consult Consult date: 02/11/21 Medical management - Chief Complaint Depression - History of Present Illness This is a 80-year-old female with past medical history noted below who presented to the emergency room with depression and suicidal thoughts. Patient is currently admitted to the psych unit for further management. I was asked to see her for medical management. Patient herself reports feeling fairly well. She does not have any complaints other than anxiety and some depression.. She denies any shortness of breath or cough. Patient has a history of recurrent pleural effusion and as a pigtail catheter inserted to the right chest. She told me that her has been draining the catheter every 4-5 days. She told me that she is not due for draining until Friday or Friday. She denies any shortness of breath. No chest x-ray was done in the ER. Review of Systems Review of system: 14 points review of systems were obtained and were negative except to what were mentioned in the HPI. 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 History of Any Multi-Drug Resistant Organisms: None Reported Past Surgical History: Adenoidectomy, Appendectomy, Breast Surgery, Hysterectomy, Tonsillectomy Additional Past Surgical History / Comment(s): Bronchoscopy/biopsy, thoracentesis, L pyeloplasty/JJ cath, L breast core bx x3-benign, EGD, colonoscopy/benign polypectomy. Past Anesthesia/Blood Transfusion Reactions: Postoperative Nausea & Vomiting (PONV) Additional Past Anesthesia/Blood Transfusion Reaction / Comm: Pt has emerald leyva Past Psychological History: Anxiety, Bipolar, Depression Additional Psychological History / Comment(s): Pt resides with her spouse. She has home oxygen/nebulizer. She drives. She just finished with [facility]. Smoking Status: Former smoker Past Alcohol Use History: None Reported Additional Past Alcohol Use History / Comment(s): Pt quit smoking 2005, started smoking age 17, 1ppd. 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 Past Drug Use History: None Reported - Past Family History Father Family Medical History: CVA/TIA Additional Family Medical History / Comment(s): Father of a cerebral hemorrhage at age 48yrs. Mother Family Medical History: Cancer Additional Family Medical History / Comment(s): Mother of lung cancer. Sister(s) Family Medical History: Cancer Additional Family Medical History / Comment(s): Sister of lung cancer Medications and Allergies Home Medications Medication Instructions Recorded Confirmed Type Atorvastatin [Lipitor] 20 mg PO HS 02/07/16 02/10/21 History Levothyroxine Sodium [Synthroid] 100 mcg PO DAILY 02/07/16 02/10/21 History atenoloL [Tenormin] 50 mg PO DAILY 02/07/16 02/10/21 History Budesonide-Formot 160-4.5 Mcg 2 puff INHALATION RT-BID PRN 06/03/17 02/10/21 History [Symbicort 160-4.5 Mcg Inhaler] Albuterol Sulfate [Ventolin HFA] 2 puff INHALATION RT-Q4H PRN 09/10/20 02/10/21 History OLANZapine [ZyPREXA] 2.5 mg PO HS #30 tab 10/25/20 02/10/21 Rx ALPRAZolam [Xanax] 0.25 mg PO TID 12/20/20 02/10/21 History Albuterol Nebulized [Ventolin 2.5 mg INHALATION RT-Q6H PRN 12/20/20 02/10/21 History Nebulized] FLUoxetine HCL [PROzac] 40 mg PO DAILY 12/20/20 02/10/21 History Acetaminophen Tab [Tylenol] 1,000 mg PO Q6HR PRN #30 tab 12/22/20 02/10/21 Rx Allergies Allergy/AdvReac Type Severity Reaction Status Date / Time latex Allergy Swelling Verified 02/10/21 17:10 Physical Exam Vitals: Vital Signs Temp Pulse Pulse Resp BP BP Pulse Ox 02/11/21 08:03 18 94 L 02/11/21 08:00 62 140/82 02/10/21 16:55 97.4 F L 69 16 126/56 02/10/21 15:13 97.5 F L 63 18 106/58 95 02/10/21 15:00 18 02/10/21 14:00 18 02/10/21 13:00 18 02/10/21 12:15 18 Intake and Output 02/10/21 02/11/21 02/11/21 22:59 06:59 14:59 Other: Weight 62.596 kg 62.8 kg General: The patient is awake and alert, in no distress Eye: there is normal conjunctiva bilaterally. Neck: The neck is supple, there is no JVD. Cardiovascular: Normal S1-S2, no S3-S4, no murmurs. Respiratory: Lungs clear to auscultation bilaterally Gastrointestinal: Abdomen is soft, nontender Musculoskeletal: There is no pedal edema. Neurological:. Speech is normal. Skin: Skin is warm and dry Results CBC & Chem 7: 02/11/21 06:06 02/11/21 06:06 Labs: Abnormal Lab Results - Last 24 Hours (Table) 02/10/21 02/10/21 02/10/21 Range/Units 12:03 12:03 12:03 Hct 46.4 H (34.0-46.0) % Plt Count 139 L (150-450) k/uL Lymphocytes # 0.4 L (1.0-4.8) k/uL Chloride (98-107) mmol/L BUN 20 H (7-17) mg/dL Glucose 101 H (74-99) mg/dL Total Protein 6.1 L (6.3-8.2) g/dL U Benzodiazepines Scrn Detected H (NotDetected) 02/11/21 02/11/21 Range/Units 06:06 06:06 Hct 46.4 H (34.0-46.0) % Plt Count 134 L (150-450) k/uL Lymphocytes # 0.6 L (1.0-4.8) k/uL Chloride 108 H (98-107) mmol/L BUN (7-17) mg/dL Glucose (74-99) mg/dL Total Protein 6.1 L (6.3-8.2) g/dL U Benzodiazepines Scrn (NotDetected) Assessment and Plan Assessment: 1. History of recurrent pleural effusion status post right pigtail catheter. 2 for drainage on Friday or Friday. Patient is stable and denies any lynn rtness of breath. If worsening shortness of breath consider obtaining a chest x-ray and have respiratory therapist drain the dictated catheter. 2. Underlying depression and anxiety with suicidal thoughts on presentation, managed by psychiatry 3. Chronic medical problems: Hypertension, hyperlipidemia, underlying COPD was no evidence of exacerbation, history of atrial flutter, Today, I reviewed her medication list and lab work results. Continue current regimen. I will follow-up on the patient on as-needed basis. Thank you for the consultation.
[2021-02-11 11:53] LABS: Chol/HDL Ratio 2.59; Cholesterol 189 mg/dL (0-200); LDL Cholesterol,Calculated 98.6 mg/dL (0.0-131.0)
[2021-02-11 14:18] LABS: Hemoglobin A1C 5.2 % (4.0-6.0)
[2021-02-11] MEDS: OLANZapine 2.5 MG TAB PO SCH (20:31)
[2021-02-11] MEDS: ATORVASTATIN 20 MG TAB PO SCH (20:31)
[2021-02-12] MEDS: LEVOTHYROXINE 100 MCG TAB PO SCH (06:34)
[2021-02-12] MEDS: ALPRAZolam 0.5 MG TAB PO SCH ×3 (07:42→20:19)
[2021-02-12] MEDS: atenoloL 50 MG TAB PO SCH (08:34)
[2021-02-12] MEDS: FLUoxetine HCL 20 MG CAP PO SCH (08:34)
--- NOTE | 2021-02-12 10:32 | P.PN ---
Progress Note - Text Progress Note Date: 02/12/21 Interval History: Patient was seen resting in bed and was directable and agreeable to speak with technical document writer in her room. The patient reports that she has been feeling increasingly depressed and anxious over the last 2 months. She doesn't endorse excessive feelings of guilt stating that she feels like a burden to her and daughter. She does state that they are very supportive. She expresses a desire to "downsize her life" [place] but her does not wish to. She does report that she has lost 10-11 pounds over the past few months. She reports low appetite. She does admit to suicidal ideation but states that there is none today. She reports no homicidal ideation, intention, and/or plan. The patient states that she is "tired of being patient for these medications to work." She is willing to trial Remeron today. She reports no auditory or visual hallucinations. She denies any paranoia or delusions. She is alert and oriented in all spheres. Mental Status Exam: General Appearance: Patient appears to be stated age is alert, directable, and cooperative. Good hygiene and grooming. Receiving oxygen via nasal cannula. Behavior: Patient is calmly seated without any agitated behavior. Eye contact is appropriate. Psychomotor activity is normal. Speech: Patient's speech is fluent and nonpressured. Mood/Affect: Mood is depressed, affect is congruent and tearful. Suicidality/Homicidality: Patient denies having any suicidal or homicidal ideation intent or plan. Perceptions: Patient denies any visual hallucinations and denies any auditory hallucinations Though content/process: There is no evidence of any delusional thought content and thought process is linear and goal-directed. Dysphoric thought process. Memory and concentration: AOX3, grossly intact for the purposes of this session Judgment and insight: Improving mildly Vital Signs Temp 97.4 F L 02/12/21 06:32 Pulse 99 02/12/21 06:32 Resp 18 02/12/21 06:32 BP 128/73 02/12/21 06:32 Pulse Ox 96 02/12/21 06:32 Intake & Output 02/11/21 02/12/21 02/12/21 18:59 06:59 18:59 Weight 62.8 kg Laboratory Results - Last 24 Hours 02/11/21 02/11/21 06:06 06:[address] Glu mg/dL 103 Hemoglobin A1c 5.2 Triglycerides 87.0 Cholesterol 189 LDL Cholesterol, Calc 98.6 VLDL Cholesterol, Calc 17.40 HDL Cholesterol 73.0 H Cholesterol/HDL Ratio 2.59 Assessment Major depressive disorder, recurrent, severe Plan: -Patient continues to meet criteria for inpatient psychiatric admission for symptom stabilization and safety. Patient has signed adult voluntary form and medication consent and was placed in patient's chart. -Medications: Continue Prozac 40 mg by mouth daily for depression/anxiety Continue Zyprexa 2.5 mg by mouth at bedtime for mood augmentation Start Remeron 7.5 mg by mouth at bedtime for depression/appetite stimulation Continue Xanax 0.25 mg by mouth 3 times a day for anxiety -SW on board for discharge planning. Encouraged the patient to participate in milieu.
[2021-02-12] MEDS: ATORVASTATIN 20 MG TAB PO SCH (20:20)
[2021-02-12] MEDS: OLANZapine 2.5 MG TAB PO SCH (20:20)
[2021-02-12] MEDS ORDERED: MIRTAZAPINE 15 MG TAB PO SCH (21:00)
[2021-02-13] MEDS: LEVOTHYROXINE 100 MCG TAB PO SCH (06:23)
[2021-02-13] MEDS: atenoloL 50 MG TAB PO SCH (08:33)
[2021-02-13] MEDS: ALPRAZolam 0.5 MG TAB PO SCH ×3 (08:33→20:09)
[2021-02-13] MEDS: FLUoxetine HCL 20 MG CAP PO SCH (08:33)
--- NOTE | 2021-02-13 13:28 | P.PN ---
Progress Note - Text Progress Note Date: 02/13/21 Interval History: Patient was seen resting in bed and was directable and agreeable to speak with blurb writer in her room. The patient continues to report elevated anxiety that is especially worse in the morning. She reports that her source of anxiety can be random but she is particularly concerned that she has a poor grasp of technology. She is otherwise reporting ongoing symptoms of depression including hopelessness and helplessness. She is not reporting any suicidal or homicidal ideation, intention, and/or plan. She is denying any auditory or visual hallucinations. She is not reporting any paranoia or other delusions. She did report that she was able to sleep well last night but has not noticed any other changes in regards to her appetite. She appears to be tolerating the medication well. Patient was able to engage in therapeutic practices such as cognitive reframing with this provider. She states that she feels like she would be ready for discharge tomorrow. Mental Status Exam: General Appearance: Patient appears to be stated age is alert, directable, and cooperative. Good hygiene and grooming. Receiving oxygen via nasal cannula. Behavior: Patient is calmly seated without any agitated behavior. Eye contact is appropriate. Psychomotor activity is normal. Speech: Patient's speech is fluent and nonpressured. Mood/Affect: Mood is anxious, affect is euthymic with constricted. Suicidality/Homicidality: Patient denies having any suicidal or homicidal ideation intent or plan. Perceptions: Patient denies any visual hallucinations and denies any auditory hallucinations Though content/process: There is no evidence of any delusional thought content and thought process is linear and goal-directed. Some dysphoria present. Memory and concentration: AOX3, grossly intact for the purposes of this session Judgment and insight: Improving mildly Vital Signs Temp 97.4 F L 02/13/21 07:14 Pulse 64 02/13/21 07:14 Resp 21 02/13/21 07:14 BP 121/58 02/13/21 07:14 Pulse Ox 95 02/13/21 07:14 Assessment Major depressive disorder, recurrent, severe Plan: -Patient continues to meet criteria for inpatient psychiatric admission for symptom stabilization and safety. Patient has signed adult voluntary form and medication consent and was placed in patient's chart. -Medications: Continue Prozac 40 mg by mouth daily for depression/anxiety Discontinue Zyprexa to avoid polypharmacy. Increase Remeron to 15 mg by mouth at bedtime for depression/appetite stimulation Continue Xanax 0.25 mg by mouth 3 times a day for anxiety -SW on board for discharge planning. Encouraged the patient to participate in milieu.
[2021-02-13] MEDS: ATORVASTATIN 20 MG TAB PO SCH (20:45)
[2021-02-13] MEDS ORDERED: MIRTAZAPINE 15 MG TAB PO SCH (21:00)
[2021-02-14] MEDS: LEVOTHYROXINE 100 MCG TAB PO SCH (06:33)
[2021-02-14 06:40] VITALS: TEMP 97.7
[2021-02-14 08:25] VITALS: BP 156/67; PULSE 79; RESP 20
[2021-02-14] MEDS: FLUoxetine HCL 20 MG CAP PO SCH (08:25)
[2021-02-14] MEDS: atenoloL 50 MG TAB PO SCH (08:25)
[2021-02-14] MEDS: ALPRAZolam 0.5 MG TAB PO SCH (08:28)
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
[2021-02-14 14:40] LABS: Fluoxetine (Prozac) 306 ng/mL (50-480)
== END 2021-02-14 13:00 | disposition home or self-care (01) | DRG 885 ==
LOC: EC 11:05 → 3MHU 14:55
PROVIDERS: ADMIT Psychiatry & Neurology Psychiatry; ATTEND Psychiatry & Neurology Psychiatry
DX: F33.2 Major depressive disorder, recurrent severe without psychotic features (principal); I48.92 Unspecified atrial flutter; R45.851 Suicidal ideations; J44.9 Chronic obstructive pulmonary disease, unspecified; E03.9 Hypothyroidism, unspecified; E78.5 Hyperlipidemia, unspecified; I10 Essential (primary) hypertension; F10.21 Alcohol dependence, in remission; G43.909 Migraine, unspecified, not intractable, without status migrainosus; G25.0 Essential tremor; M19.90 Unspecified osteoarthritis, unspecified site; Z79.51 Long term (current) use of inhaled steroids; Z79.890 Hormone replacement therapy; Z79.899 Other long term (current) drug therapy; Z85.118 Personal history of other malignant neoplasm of bronchus and lung; Z87.891 Personal history of nicotine dependence; Z90.710 Acquired absence of both cervix and uterus; Z87.19 Personal history of other diseases of the digestive system; Z86.718 Personal history of other venous thrombosis and embolism; Z92.3 Personal history of irradiation
CPT/HCPCS: 36415; 80053; 80061; 80178; 80299; 80306; 81003; 82075; 83036; 84443; 85025; 94640; 99285

== ENCOUNTER 2021-02-26 10:28 | Emergency (ER) | payer MEDICARE, BC ==
[2021-02-26 11:48] LABS: Appearance,Urine Clear (Clear); Bilirubin,Urine Negative (Negative); Blood,Urine Negative (Negative); Color,Urine Yellow; Glucose,Urine (UA) Negative (Negative); Ketones,Urine Negative (Negative); Leukocyte Esterase,Urine Negative (Negative); Nitrite,Urine Negative (Negative); PH, Urine 5.5 (5.0-8.0); Protein,Urine Negative (Negative); Specific Gravity,Urine 1.018 (1.001-1.035); Urobilinogen,Urine <2.0 mg/dL (<2.0)
[2021-02-26 12:02] LABS: Amphetamine Screen,Urine Not Detected (NotDetected); Barbiturate Screen,Urine Not Detected (NotDetected); Benzodiazepines Screen,Urine Detected (NotDetected); Cocaine Screen,Urine Not Detected (NotDetected); Methadone Screen, Urine Not Detected (NotDetected); Opiate Screen,Urine Not Detected (NotDetected); Oxycodone Screen, Urine Not Detected (NotDetected); Phencyclidine Screen,Urine Not Detected (NotDetected); Tricyclic Antidepressant,Urine Not Detected (NotDetected); Urn Cannabinoid Scrn Not Detected (NotDetected)
[2021-02-26] MEDS ORDERED: LORazepam 1 MG TAB PO STA ×2 (12:55→18:40)
--- NOTE | 2021-02-26 13:53 | ED ---
Psych HPI - General Source: patient, RN notes reviewed Mode of arrival: wheelchair Limitations: no limitations <Rickie Win - Last Filed: 02/26/21 13:52> <Fareed Collins - Last Filed: 03/01/21 18:19> - General Chief Complaint: Psychiatric Symptoms Stated Complaint: Mental Health Time Seen by Provider: 02/26/21 10:46 - History of Present Illness Initial Comments: This a 80-year-old female presents emergency Department with chief complaint of depression, suicidal ideation. Patient states she was recently hospitalist for psychiatric help states that she is severely depressed secondary to health issues no she states that she wants to herself. She states that she has chronic lung disease reduction dependent and has unknown reason for her recurrent pleural effusion. Patient states she does not want to live like this anymore. (Rickie Win) - Related Data Home Medications Medication Instructions Recorded Confirmed Budesonide-Formot 160-4.5 Mcg 2 puff INHALATION RT-BID PRN 06/03/17 02/26/21 [Symbicort 160-4.5 Mcg Inhaler] Albuterol Sulfate [Ventolin HFA] 2 puff INHALATION RT-Q4H PRN 09/10/20 02/26/21 Albuterol Nebulized [Ventolin 2.5 mg INHALATION RT-Q6H PRN 12/20/20 02/26/21 Nebulized] Previous Rx's Medication Instructions Recorded Acetaminophen Tab [Tylenol] 1,000 mg PO Q6HR PRN #30 tab 12/22/20 ALPRAZolam [Xanax] 0.25 mg PO TID 30 Days tab 02/14/21 Atorvastatin [Lipitor] 20 mg PO HS 30 Days tab 02/14/21 FLUoxetine HCL [PROzac] 40 mg PO DAILY 30 Days cap 02/14/21 Levothyroxine Sodium [Synthroid] 100 mcg PO DAILY@0630 30 Days tab 02/14/21 Mirtazapine [Remeron] 15 mg PO HS 30 Days tab 02/14/21 atenoloL [Tenormin] 50 mg PO DAILY 30 Days tab 02/14/21 ALPRAZolam [Xanax] 0.25 mg PO Q8HR 3 Days #9 tab 03/01/21 ARIPiprazole [Abilify] 1 mg PO DAILY #8 tab 03/01/21 FLUoxetine HCL [PROzac] 40 mg PO DAILY #15 cap 03/01/21 Allergies Allergy/AdvReac Type Severity Reaction Status Date / Time latex Allergy Swelling Verified 02/26/21 11:07 Review of Systems ROS Other: All systems not noted in ROS Statement are negative. <Rickie Win - Last Filed: 02/26/21 13:52> ROS Other: All systems not noted in ROS Statement are negative. <Fareed Collins - Last Filed: 03/01/21 18:19> ROS Statement: Those systems with pertinent positive or pertinent negative responses have been documented in the HPI. 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 History of Any Multi-Drug Resistant Organisms: None Reported Past Surgical History: Adenoidectomy, Appendectomy, Breast Surgery, Hysterectomy, Tonsillectomy Additional Past Surgical History / Comment(s): Bronchoscopy/biopsy, thoracentesis, L pyeloplasty/JJ cath, L breast core bx x3-benign, EGD, colonoscopy/benign polypectomy. Past Anesthesia/Blood Transfusion Reactions: Postoperative Nausea & Vomiting (PONV) Additional Past Anesthesia/Blood Transfusion Reaction / Comment(s): Pt has clausterphobia Past Psychological History: Anxiety, Bipolar, Depression Smoking Status: Former smoker Past Alcohol Use History: None Reported Past Drug Use History: None Reported - Past Family History Father Family Medical History: CVA/TIA Additional Family Medical History / Comment(s): Father of a cerebral hemorrhage at age 48yrs. Mother Family Medical History: Cancer Additional Family Medical History / Comment(s): Mother of lung cancer. Sister(s) Family Medical History: Cancer Additional Family Medical History / Comment(s): Sister of lung cancer <Rickie Win M - Last Filed: 02/26/21 13:52> General Exam Limitations: no limitations General appearance: alert, in no apparent distress Head exam: Present: atraumatic, normocephalic, normal inspection Eye exam: Present: normal appearance, PERRL, EOMI. Absent: scleral icterus, conjunctival injection, periorbital swelling ENT exam: Present: normal exam, mucous membranes moist Neck exam: Present: normal inspection. Absent: tenderness, meningismus, lymphadenopathy Respiratory exam: Absent: normal lung sounds bilaterally, respiratory distress, wheezes, rales, rhonchi, stridor Cardiovascular Exam: Present: regular rate, normal rhythm, normal heart sounds. Absent: systolic murmur, diastolic murmur, rubs, gallop, clicks Neurological exam: Present: alert Psychiatric exam: Present: depressed, flat affect <Rickie Win M - Last Filed: 02/26/21 13:52> Course Vital Signs 02/26/21 02/26/21 02/27/21 10:37 18:17 09:45 Temperature 97.9 F 98.0 F Pulse Rate 64 62 67 Respiratory 24 18 18 Rate Blood Pressure 116/71 137/68 123/70 O2 Sat by Pulse 93 L 94 L 93 L Oximetry 02/27/21 02/27/21 02/27/21 10:47 10:50 14:53 Temperature Pulse Rate 67 64 68 Respiratory 16 16 16 Rate Blood Pressure O2 Sat by Pulse Oximetry 02/27/21 02/27/21 02/28/21 15:03 19:33 06:00 Temperature Pulse Rate 72 62 62 Respiratory 16 16 16 Rate Blood Pressure 133/75 123/68 O2 Sat by Pulse 94 L 93 L Oximetry 02/28/21 02/28/21 02/28/21 09:39 11:38 11:46 Temperature 97.9 F Pulse Rate 71 63 64 Respiratory 18 16 16 Rate Blood Pressure 111/48 O2 Sat by Pulse 96 Oximetry 02/28/21 02/28/21 03/01/21 16:00 23:09 06:00 Temperature Pulse Rate 67 63 68 Respiratory 18 16 18 Rate Blood Pressure 105/53 118/63 116/54 O2 Sat by Pulse 91 L 94 L 97 Oximetry 03/01/21 03/01/21 03/01/21 08:00 15:11 17:52 Temperature 98.1 F 98.2 F Pulse Rate 70 61 55 L Respiratory 18 18 18 Rate Blood Pressure 125/74 107/72 102/60 O2 Sat by Pulse 99 96 95 Oximetry Medical Decision Making - Lab Data Result diagrams: 02/26/21 14:10 02/26/21 14:10 <Fareed Collins - Last Filed: 03/01/21 18:19> - Medical Decision Making EPS evaluated the patient as did the psychiatrist Dr. Rivera and it was determined at this time that the patient was safe to go home with a safety plan. Psychiatry has recommended Prozac Xanax and increasing the Remeron and also begin Abilify. (Fareed Collins) - Lab Data Lab Results 02/26/21 02/26/21 02/26/21 Range/Units 11:23 14:10 14:10 WBC 4.9 (3.8-10.6) k/uL RBC 4.75 (3.80-5.40) m/uL Hgb 14.9 (11.4-16.0) gm/dL Hct 45.2 (34.0-46.0) % MCV 95.3 (80.0-100.0) fL MCH 31.5 (25.0-35.0) pg MCHC 33.0 (31.0-37.0) g/dL RDW 12.8 (11.5-15.5) % Plt Count 167 (150-450) k/uL MPV 7.3 Neutrophils % 80 % Lymphocytes % 9 % Monocytes % 6 % Eosinophils % 2 % Basophils % 0 % Neutrophils # 3.9 (1.3-7.7) k/uL Lymphocytes # 0.4 L (1.0-4.8) k/uL Monocytes # 0.3 (0-1.0) k/uL Eosinophils # 0.1 (0-0.7) k/uL Basophils # 0.0 (0-0.2) k/uL Sodium 139 (137-145) mmol/L Potassium 4.6 (3.5-5.1) mmol/L Chloride 106 (98-107) mmol/L Carbon Dioxide 31 H (22-30) mmol/L Anion Gap 2 mmol/L BUN 20 H (7-17) mg/dL Creatinine 0.69 (0.52-1.04) mg/dL Est GFR (CKD-EPI)AfAm >90 (>60 ml/min/1.73 sqM) Est GFR (CKD-EPI)NonAf 84 (>60 ml/min/1.73 sqM) Glucose 97 (74-99) mg/dL Calcium 9.5 (8.4-10.2) mg/dL Total Bilirubin 0.4 (0.2-1.3) mg/dL AST 28 (14-36) U/L ALT 21 (4-34) U/L Alkaline Phosphatase 105 (38-126) U/L Total Protein 5.8 L (6.3-8.2) g/dL Albumin 3.6 (3.5-5.0) g/dL Urine Color Yellow Urine Appearance Clear (Clear) Urine pH 5.5 (5.0-8.0) Ur Specific [place] 1.018 (1.001-1.035) Urine Protein Negative (Negative) Urine Glucose (UA) Negative (Negative) Urine Ketones Negative (Negative) Urine Blood Negative (Negative) Urine Nitrite Negative (Negative) Urine Bilirubin Negative (Negative) Urine Urobilinogen <2.0 (<2.0) mg/dL Ur Leukocyte Esterase Negative (Negative) Urine Opiates Screen Not Detected (NotDetected) Ur Oxycodone Screen Not Detected (NotDetected) Urine Methadone Screen Not Detected (NotDetected) Ur Propoxyphene Screen Not Detected (NotDetected) Ur Barbiturates Screen Not Detected (NotDetected) U Tricyclic Antidepress Not Detected (NotDetected) Ur Phencyclidine Scrn Not Detected (NotDetected) Ur Amphetamines Screen Not Detected (NotDetected) U Methamphetamines Scrn Not Detected (NotDetected) U Benzodiazepines Scrn Detected H (NotDetected) Urine Cocaine Screen Not Detected (NotDetected) U Marijuana (THC) Screen Not Detected (NotDetected) Coronavirus (PCR) (Not Detectd) 02/26/21 Range/Units 14:10 WBC (3.8-10.6) k/uL RBC (3.80-5.40) m/uL Hgb (11.4-16.0) gm/dL Hct (34.0-46.0) % MCV (80.0-100.0) fL MCH (25.0-35.0) pg MCHC (31.0-37.0) g/dL RDW (11.5-15.5) % Plt Count (150-450) k/uL MPV Neutrophils % % Lymphocytes % % Monocytes % % Eosinophils % % Basophils % % Neutrophils # (1.3-7.7) k/uL Lymphocytes # (1.0-4.8) k/uL Monocytes # (0-1.0) k/uL Eosinophils # (0-0.7) k/uL Basophils # (0-0.2) k/uL Sodium (137-145) mmol/L Potassium (3.5-5.1) mmol/L Chloride (98-107) mmol/L Carbon Dioxide (22-30) mmol/L Anion Gap mmol/L BUN (7-17) mg/dL Creatinine (0.52-1.04) mg/dL Est GFR (CKD-EPI)AfAm (>60 ml/min/1.73 sqM) Est GFR (CKD-EPI)NonAf (>60 ml/min/1.73 sqM) Glucose (74-99) mg/dL Calcium (8.4-10.2) mg/dL Total Bilirubin (0.2-1.3) mg/dL AST (14-36) U/L ALT (4-34) U/L Alkaline Phosphatase (38-126) U/L Total Protein (6.3-8.2) g/dL Albumin (3.5-5.0) g/dL Urine Color Urine Appearance (Clear) Urine pH (5.0-8.0) Ur Specific [place] (1.001-1.035) Urine Protein (Negative) Urine Glucose (UA) (Negative) Urine Ketones (Negative) Urine Blood (Negative) Urine Nitrite (Negative) Urine Bilirubin (Negative) Urine Urobilinogen (<2.0) mg/dL Ur Leukocyte Esterase (Negative) Urine Opiates Screen (NotDetected) Ur Oxycodone Screen (NotDetected) Urine Methadone Screen (NotDetected) Ur Propoxyphene Screen (NotDetected) Ur Barbiturates Screen (NotDetected) U Tricyclic Antidepress (NotDetected) Ur Phencyclidine Scrn (NotDetected) Ur Amphetamines Screen (NotDetected) U Methamphetamines Scrn (NotDetected) U Benzodiazepines Scrn (NotDetected) Urine Cocaine Screen (NotDetected) U Marijuana (THC) Screen (NotDetected) Coronavirus (PCR) Not Detected (Not Detectd) Disposition <Rickie Win - Last Filed: 02/26/21 13:52> Is patient prescribed a controlled substance at d/c from ED?: No Time of Disposition: 18:14 <Fareed Collins - Last Filed: 03/01/21 18:19> Clinical Impression: Depression Disposition: HOME SELF-CARE Prescriptions: ARIPiprazole [Abilify] 1 mg PO DAILY #8 tab FLUoxetine HCL [PROzac] 40 mg PO DAILY #15 cap ALPRAZolam [Xanax] 0.25 mg PO Q8HR 3 Days #9 tab Referrals: Yao Haywood MD [Primary Care Provider] - 1-2 days
[2021-02-26 14:19] LABS: Basophils % (A) 0 %; Eosinophils # (A) 0.1 k/uL (0-0.7); Eosinophils % (A) 2 %; HCT 45.2 % (34.0-46.0); HGB 14.9 gm/dL (11.4-16.0); Lymphocytes # (A) 0.4 k/uL (1.0-4.8); Lymphocytes % (A) 9 %; MCH 31.5 pg (25.0-35.0); MCV 95.3 fL (80.0-100.0); Mean Platelet Volume 7.3; Monocytes # (A) 0.3 k/uL (0-1.0); Monocytes % (A) 6 %; Neutrophils # (A) 3.9 k/uL (1.3-7.7); Neutrophils % (A) 80 %; Platelet Count 167 k/uL (150-450); RBC 4.75 m/uL (3.80-5.40); RDW 12.8 % (11.5-15.5); WBC 4.9 k/uL (3.8-10.6)
[2021-02-26 14:38] LABS: ALT 21 U/L (4-34); AST 28 U/L (14-36); African American GFR (CKD) >90 (>60 ml/min/1.73 sqM); Albumin 3.6 g/dL (3.5-5.0); Alkaline Phosphatase 105 U/L (38-126); Anion Gap 2 mmol/L; Blood Urea Nitrogen 20 mg/dL (7-17); Calcium 9.5 mg/dL (8.4-10.2); Carbon Dioxide 31 mmol/L (22-30); Chloride 106 mmol/L (98-107); Glucose 97 mg/dL (74-99); Non-African American GFR(CKD) 84 (>60 ml/min/1.73 sqM); Potassium 4.6 mmol/L (3.5-5.1); Sodium 139 mmol/L (137-145); Total Bilirubin 0.4 mg/dL (0.2-1.3); Total Protein 5.8 g/dL (6.3-8.2)
[2021-02-27] MEDS ORDERED: LORazepam 1 MG TAB PO STA (03:37)
[2021-02-27] MEDS ORDERED: SYMBICORT 160-4.5 MCG INHALER INHALATION PRN (06:52)
[2021-02-27] MEDS ORDERED: ALBUTEROL HFA INHALER INHALATION PRN (06:52)
[2021-02-27] MEDS ORDERED: ACETAMINOPHEN TAB 500 MG TAB PO PRN (06:52)
[2021-02-27] MEDS ORDERED: ALPRAZolam 0.25 MG TAB PO SCH (09:00)
[2021-02-27] MEDS: atenoloL 50 MG TAB PO SCH (09:49)
[2021-02-27] MEDS: FLUoxetine HCL 20 MG CAP PO SCH (09:49)
[2021-02-27] MEDS: LORazepam 1 MG TAB PO PRN (10:35)
[2021-02-27] MEDS: ALBUTEROL NEBULIZED 2.5 MG/3 ML INHALATION PRN ×2 (10:46→14:53)
--- NOTE | 2021-02-27 13:49 | P.CN ---
Psychiatric Consult - . Consult date: 02/27/21 Consult:: IDENTIFYING DATA: This patient is a , retired, 80-year-old female who presented to the ED with suicidal ideation with numerous plans HISTORY OF PRESENT ILLNESS: The patient presented to the hospital on 02/26/2021 with a chief complaint of suicidal ideation in the context of elevated anxiety, family stresses, and worsening depression. The patient was most recently admitted to the [facility] from 02/10/2021 - 02/14/2021 for similar reasons. Patient reports that yesterday morning, she woke up with elevated anxiety and panic. She reports that this was started by increased feelings of sadness and stress as she finds that her adoptive son and her biological daughter do not get along. She also describes her adoptive son's as a source of great stress for her as well as she makes it difficult for family unity and for the patient to see her grandchildren. Since she was last discharge, the patient reports that she has continued to experience elevated anxiety. Initially she did endorse significant depression since last discharge but when further explored, the patient reported no significant issues regarding her sleep, appetite, or energy. She does endorse low mood, crying episodes, and suicidal ideation. She reports multiple plans for suicide including jumping out of the car door, using her 's firearms, or hang herself from the balcony using long cords. She expresses this has been ongoing ever since her episode of lithium toxicity. She reports that the xanax she has been previously prescribed was not beneficial, and that only after taking ativan has she been able to calm down. She reports the feelings of panic and elevated anxiety typically last all day but when she is with family or at a family event she is distracted enough to not experience these feelings. She does express that she does not feel safe to return home. PAST PSYCHIATRIC HISTORY: Patient has a history of depression, anxiety, and alcohol abuse. Patient has had previous trials of prozac, zyprexa, zoloft and lithium. She was most recently on [facility] for depression with suicidal ideation from 02/10/2021 - 02/14/2021. She is currently open with a counselor but has not had her follow-up psychiatric appointment. She reports no prior attempts at suicide in the past. PAST MEDICAL HISTORY: ALLERGIES: Latex CHEMICAL DEPENDENCY HISTORY: Patient reports a history of heavy alcohol use but states she has been sober for 27 years. FAMILY PSYCHIATRIC/SUBSTANCE USE HISTORY: She reports her son was an alcoholic. She reports one of her granddaughters has depression. No reported family history of suicide. SOCIAL HISTORY: Patient is currently to her and they have 10 children total but 5 with each other. 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 MENTAL STATUS EXAM: General Appearance: Patient appears to be stated age is alert, pleasant, and cooperative. Patient appears to have fair hygiene and grooming wearing hospital gown with fair eye contact. Behavior: Patient is calmly lying in bed without any agitated behavior. Patient becomes appropriately tearful. Speech: Patient's speech is fluent and nonpressured. Mood/Affect: Patient reports their mood is "depressed and anxious.", affect is congruent and tearful Suicidality/Homicidality: Patient admits to suicidal ideation but no homicidal ideation, intention, and/or plan. Perceptions: Patient denies any visual hallucinations and denies any auditory hallucinations Though content/process: There is no evidence of any delusional thought content and thought process is linear and goal-directed. Memory and concentration: AOX3, grossly intact for the purposes of this session. Can spell "WORLD" backwards Judgment and insight: fair Vital Signs Temp 98.0 F 02/27/21 09:45 Pulse 64 02/27/21 10:50 Resp 16 02/27/21 10:50 BP 123/70 02/27/21 09:45 Pulse Ox 93 L 02/27/21 09:45 Intake & Output 02/26/21 02/27/21 02/27/21 18:59 06:59 18:59 Weight 62.142 kg Laboratory Results WBC 4.9 k/uL (3.8-10.6) 02/26/21 14:10 RBC 4.75 m/uL (3.80-5.40) 02/26/21 14:10 Hgb 14.9 gm/dL (11.4-16.0) 02/26/21 14:10 Hct 45.2 % (34.0-46.0) 02/26/21 14:10 MCV 95.3 fL (80.0-100.0) 02/26/21 14:10 MCH 31.5 pg (25.0-35.0) 02/26/21 14:10 MCHC 33.0 g/dL (31.0-37.0) 02/26/21 14:10 RDW 12.8 % (11.5-15.5) 02/26/21 14:10 Plt Count 167 k/uL (150-450) 02/26/21 14:10 MPV 7.3 02/26/21 14:10 Neutrophils % 80 % 02/26/21 14:10 Lymphocytes % 9 % 02/26/21 14:10 Monocytes % 6 % 02/26/21 14:10 Eosinophils % 2 % 02/26/21 14:10 Basophils % 0 % 02/26/21 14:10 Neutrophils # 3.9 k/uL (1.3-7.7) 02/26/21 14:10 Lymphocytes # 0.4 k/uL (1.0-4.8) L 02/26/21 14:10 Monocytes # 0.3 k/uL (0-1.0) 02/26/21 14:10 Eosinophils # 0.1 k/uL (0-0.7) 02/26/21 14:10 Basophils # 0.0 k/uL (0-0.2) 02/26/21 14:10 Sodium 139 mmol/L (137-145) 02/26/21 14:10 Potassium 4.6 mmol/L (3.5-5.1) 02/26/21 14:10 Chloride 106 mmol/L (98-107) 02/26/21 14:10 Carbon Dioxide 31 mmol/L (22-30) H 02/26/21 14:10 Anion Gap 2 mmol/L 02/26/21 14:10 BUN 20 mg/dL (7-17) H 02/26/21 14:10 Creatinine 0.69 mg/dL (0.52-1.04) 02/26/21 14:10 Est GFR (CKD-EPI)AfAm >90 (>60 ml/min/1.73 sqM) 02/26/21 14:10 Est GFR (CKD-EPI)NonAf 84 (>60 ml/min/1.73 sqM) 02/26/21 14:10 Glucose 97 mg/dL (74-99) 02/26/21 14:10 Calcium 9.5 mg/dL (8.4-10.2) 02/26/21 14:10 Total Bilirubin 0.4 mg/dL (0.2-1.3) 02/26/21 14:10 AST 28 U/L (14-36) 02/26/21 14:10 ALT 21 U/L (4-34) 02/26/21 14:10 Alkaline Phosphatase 105 U/L (38-126) 02/26/21 14:10 Total Protein 5.8 g/dL (6.3-8.2) L 02/26/21 14:10 Albumin 3.6 g/dL (3.5-5.0) 02/26/21 14:10 Urine Color Yellow 02/26/21 11:23 Urine Appearance Clear (Clear) 02/26/21 11:23 Urine pH 5.5 (5.0-8.0) 02/26/21 11:23 Ur Specific [place] 1.018 (1.001-1.035) 02/26/21 11:23 Urine Protein Negative (Negative) 02/26/21 11:23 Urine Glucose (UA) Negative (Negative) 02/26/21 11:23 Urine Ketones Negative (Negative) 02/26/21 11:23 Urine Blood Negative (Negative) 02/26/21 11:23 Urine Nitrite Negative (Negative) 02/26/21 11:23 Urine Bilirubin Negative (Negative) 02/26/21 11:23 Urine Urobilinogen <2.0 mg/dL (<2.0) 02/26/21 11:23 Ur Leukocyte Esterase Negative (Negative) 02/26/21 11:23 Urine Opiates Screen Not Detected (NotDetected) 02/26/21 11:23 Ur Oxycodone Screen Not Detected (NotDetected) 02/26/21 11:23 Urine Methadone Screen Not Detected (NotDetected) 02/26/21 11:23 Ur Propoxyphene Screen Not Detected (NotDetected) 02/26/21 11:23 Ur Barbiturates Screen Not Detected (NotDetected) 02/26/21 11:23 U Tricyclic Antidepress Not Detected (NotDetected) 02/26/21 11:23 Ur Phencyclidine Scrn Not Detected (NotDetected) 02/26/21 11:23 Ur Amphetamines Screen Not Detected (NotDetected) 02/26/21 11:23 U Methamphetamines Scrn Not Detected (NotDetected) 02/26/21 11:23 U Benzodiazepines Scrn Detected (NotDetected) H 02/26/21 11:23 Urine Cocaine Screen Not Detected (NotDetected) 02/26/21 11:23 U Marijuana (THC) Screen Not Detected (NotDetected) 02/26/21 11:23 Coronavirus (PCR) Not Detected (Not Detectd) 02/26/21 14:10 IMPRESSIONS: Major Depressive Disorder, recurrent, severe, with anxious features PLAN: -At this time patient DOES meet criteria for inpatient psychiatric admission. Recommend placement to a medical psychiatric or a geriatric psychiatric facility. The patient endorses numerous plans for suicide. -Delirium precautions recommended with patient including - avoiding use of narcotics and BOBTAIL [employer]IVER sedatives, limit anticholinergic medications when possible, frequent re-orientation, minimize use of restraints, open window shades during the day and close them at night -Would recommend the following medication changes/additions: Continue Prozac 40 mg daily for depression/anxiety Continue Remeron 15 mg at bedtime for depression/appetite Discontinue xanax. Continue Ativan 1 mg q6H PRN for anxiety -Risks, benefits, and alternatives of medications were discussed with the patient in detail and the patient verbalized understanding and was agreeable to take the medications. -Continue 1:1 sitter for safety -Cannot leave AMA at this time. Patient will need a petition and certification if attempting to leave AMA. -Will continue to follow along 02/27/21 13:48
[2021-02-27] MEDS: MIRTAZAPINE 15 MG TAB PO SCH (21:46)
[2021-02-27] MEDS: ATORVASTATIN 20 MG TAB PO SCH (21:46)
[2021-02-28] MEDS ORDERED: LEVOTHYROXINE 100 MCG TAB PO SCH (06:30)
[2021-02-28] MEDS: FLUoxetine HCL 20 MG CAP PO SCH (09:38)
[2021-02-28] MEDS: atenoloL 50 MG TAB PO SCH (09:39)
[2021-02-28] MEDS: LORazepam 1 MG TAB PO PRN ×2 (11:22→18:54)
[2021-02-28] MEDS ORDERED: polyethylene glycoL 3350 17 GM POWD.PACK PO STA (11:33)
[2021-02-28] MEDS: ALBUTEROL NEBULIZED 2.5 MG/3 ML INHALATION PRN (11:38)
--- NOTE | 2021-02-28 13:49 | P.PN ---
Progress Note - Text Progress Note Date: 02/28/21 Interval History: Patient was seen at bedside with her Eliceo present. She was agreeable to be interviewed with her present. Currently the patient does express a desire to go home. She does state she has had an improvement in her anxiety that is alleviated by ativan and not present in the evenings. She reports no issues regarding her sleep. She reports her appetite is unchanged and low at baseline. She denies any suicidal ideation at this time but reports that she would feel unsafe at home. She reports that if her stepped out of the home she would feel anxious and suicidal. Her is concerned about her safety as well stating that he would be concerned to leave her alone. They are agreeable to continue looking for placement in a geriatric psychiatric facility. Mental Status Exam: General Appearance: Patient appears to be stated age is alert, directable, and cooperative. Behavior: Patient is calmly seated without any agitated behavior. Fair eye contact. Tearful. Speech: Patient's speech is fluent and nonpressured. Spontaneous, with normal rate and volume. Mood/Affect: Mood is a little anxious, affect is congruent and tearful. Suicidality/Homicidality: Patient denies having any homicidal ideation. She reports she would be suicidal if she was alone at home. Perceptions: Patient denies any visual hallucinations and denies any auditory hallucinations Though content/process: There is no evidence of any delusional thought content and thought process is linear and goal-directed. Dysphoric thought process. Memory and concentration: AOX3, grossly intact for the purposes of this session Judgment and insight: mildly improving Vital Signs Temp 97.9 F 02/28/21 09:39 Pulse 64 02/28/21 11:46 Resp 16 02/28/21 11:46 BP 111/48 02/28/21 09:39 Pulse Ox 96 02/28/21 09:39 Intake & Output 02/27/21 02/28/21 02/28/21 18:59 06:59 18:59 Output Total 200 Balance -200 Output: Chest Tube Drainage 200 Pleural Catheter Right 200 Right Pleural/Mediastinal Assessment Major Depressive Disorder, recurrent, severe, with anxious features Plan: -At this time patient DOES meet criteria for inpatient psychiatric admission. Recommend placement to a medical psychiatric or a geriatric psychiatric facility. The patient endorses numerous plans for suicide and continues to report not feeling safe at home. We are actively looking for a bed for her. -Medications: Continue Prozac 40 mg daily for depression/anxiety Continue Remeron 15 mg at bedtime for depression/appetite Continue Ativan 1 mg q6H PRN for anxiety -Risks, benefits, and alternatives of medications were discussed with the patient in detail and the patient verbalized understanding and was agreeable to take the medications. -Continue 1:1 sitter for safety -Cannot leave AMA at this time. Patient will need a petition and certification if attempting to leave AMA. -Will continue to follow along
[2021-02-28] MEDS: MIRTAZAPINE 15 MG TAB PO SCH (21:58)
[2021-02-28] MEDS: ATORVASTATIN 20 MG TAB PO SCH (21:58)
[2021-03-01 06:53] VITALS: RESP 18
[2021-03-01] MEDS ORDERED: ACETAMINOPHEN TAB 500 MG TAB PO PRN (08:15)
[2021-03-01] MEDS ORDERED: ALBUTEROL NEBULIZED 2.5 MG/3 ML INHALATION PRN (08:15)
[2021-03-01] MEDS ORDERED: SYMBICORT 160-4.5 MCG INHALER INHALATION PRN (08:16)
[2021-03-01] MEDS: LORazepam 1 MG TAB PO PRN ×3 (08:24→19:06)
[2021-03-01] MEDS ORDERED: LEVOTHYROXINE 100 MCG TAB PO SCH (09:00)
[2021-03-01] MEDS ORDERED: FLUoxetine HCL 20 MG CAP PO SCH (09:00)
[2021-03-01] MEDS ORDERED: atenoloL 50 MG TAB PO SCH (09:00)
[2021-03-01] MEDS ORDERED: ALPRAZolam 0.25 MG TAB PO SCH (09:00)
--- NOTE | 2021-03-01 15:21 | P.CON ---
Consult Note - . 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 She presented to the ED on 02/26/2023 with complaints of uncontrolled anxiety and suicidal thoughts. Our psychiatric unit could not accommodate her medical needs at that time because she has a chronic chest tube and requires oxygen. The EPS nurse was unsuccessful and arrange needed transfer to other psychiatric facilities including [facility] in [place], [facility] [place], [facility] [place] in [facility], [place], [facility], [facility], [facility], [facility], [facility], [facility] in all month, even work, [facility], [facility] and [facility]. Margaret stated she is much less anxious on presentation to the ED. Her anxiety subsided markedly after she took oral Ativan. She regrets coming to the hospital and regrets telling her that she was having suicidal thoughts. She complained that it was a "mistake." She denied current thoughts of or suicide and again requested to return home. I spoke with her who has no reservations about her coming home. He states that he would be home and will supervise her. He is willing to bring her back to the emergency room if she becomes uncontrollably distressed or expresses suicidal thoughts. We reviewed her past treatment history. Although she had responded well to lithium she is unwilling to resume lithium because of the toxicity she experienced prior to last psychiatric hospitalization. We reviewed her current medications and agreed to increase Remeron to 30 mg at bedtime, continue current dose of Prozac and begin a trial of Abilify 1 mg daily to augment the antidepressants. Mental status exam: She presented as an anxious appearing elderly woman who was resting comfortably in bed. She made eye contact and attended to the interview. She had no prominent physical abnormalities. She had a blunted and anxious facial expression. She is alert and oriented to person, place and time. She was not restless or agitated and showed no abnormal involuntary movements. Her gait was slow but steady. Her speech was spontaneous with normal rate and rhythm. Her affect was anxious but controlled. She denied current suicidal ideation and wishes. She denied homicidal ideation. She denied current feelings of hopelessness, helplessness or worthlessness. She ruminated about her inability to control her anxiety and anxiety as a reason she had the suicidal thoughts and presented to the hospital. She did not express ideas reference, paranoid ideation or delusions. Her thinking was concrete but her associations were coherent, logical and goal directed. She denied hallucinations and did not appear to be responding to internal stimuli. Assessment: She is a chronic mentally ill elderly woman with multiple medical problems. She presented to [facility] with increase in anxiety and resulting suicidal thoughts. Her anxiety diminished considerably with by mouth Ativan. She is currently denying suicidal ideation, plan or intent as requesting discharge and outpatient treatment. Her is in agreement with this plan and will sort supervisor at home. Plan: Discharge home. Continue with outpatient individual therapy and psychiatric care. Continue Prozac 40 mg daily and the Xanax 0.25 mg 3 times a day. Increase Remeron to 30 mg at bedtime. Begin Abilify 1 mg by mouth daily. Refer her for VNA services. to bring her back to the psychiatric ER if she experiences uncontrollable anxiety or recurrence of suicidal thoughts.
[2021-03-01 17:53] VITALS: BP 102/60; PULSE 55; TEMP 98.2
[2021-03-01] MEDS ORDERED: MIRTAZAPINE 15 MG TAB PO SCH ×2 (21:00)
[2021-03-01] MEDS ORDERED: ATORVASTATIN 20 MG TAB PO SCH (21:00)
== END 2021-03-01 19:17 | disposition home or self-care (01) ==
LOC: EC 10:28
DX: F33.3 Major depressive disorder, recurrent, severe with psychotic symptoms (principal); I10 Essential (primary) hypertension; I48.92 Unspecified atrial flutter; E78.5 Hyperlipidemia, unspecified; F41.9 Anxiety disorder, unspecified; J44.9 Chronic obstructive pulmonary disease, unspecified; M19.90 Unspecified osteoarthritis, unspecified site; Z79.890 Hormone replacement therapy; Z79.51 Long term (current) use of inhaled steroids; Z79.899 Other long term (current) drug therapy; Z87.891 Personal history of nicotine dependence
CPT/HCPCS: 36415; 80053; 80306; 81003; 82075; 85025; 87635; 99285

== ENCOUNTER 2021-03-02 16:08 | Emergency (ER) | payer MEDICARE, BC ==
[2021-03-02 16:17] VITALS: TEMP 97.4
[2021-03-02] MEDS ORDERED: LORazepam 2 MG/ML INJ IV STA (16:49)
--- NOTE | 2021-03-02 16:54 | ED ---
General Adult HPI - General Chief complaint: Anxiety Stated complaint: Anxiety Time Seen by Provider: 03/02/21 16:14 Source: patient Mode of arrival: wheelchair Limitations: no limitations - History of Present Illness Initial comments: Dictation was produced using [employer] dictation software. please excuse any grammatical, word or spelling errors. Chief Complaint: 80-year-old female presents with anxiety History of Present Illness: This is 72-year-old female she presents to the emergency department for anxiety reaction. Patient takes anxiety medicines at home. When asked why she feels anxious she states it's because of the care she received in her hospital recently. Patient was recently admitted to the hospital for depression and suicidal ideation. She was here in our ER and evaluated by psychiatry with outpatient discharge plan. Patient states that she felt neglected while she was here in the ER. Patient has history of pigtail catheter to the right chest that was placed for recurrent pleural effusion. She started to feel anxious today took her oral Ativan which she feels did not really help her anxiety. She denies any suicidal ideation. She does not feel homicidal. She does jokingly say however she feels homicidal towards hospital because of the care she received when she was here 2 days ago. She denies any paranoia. She denies any chest pain shortness of breath. No abdominal pain. The ROS documented in this emergency department record has been reviewed and confirmed by me. Those systems with pertinent positive or negative responses have been documented in the HPI. All other systems are other negative and/or noncontributory. PHYSICAL EXAM: General Impression: Alert and oriented x3, not in acute distress HEENT: Normocephalic atraumatic, extra-ocular movements intact, pupils equal and reactive to light bilaterally, mucous membranes moist. Cardiovascular: Heart regular rate and rhythm Chest: Able to complete full sentences, no retractions, no tachypnea Abdomen: abdomen soft, non-tender, non-distended, no organomegaly Musculoskeletal: Pulses present and equal in all extremities, no peripheral edema Motor: no focal deficits noted Neurological: CN II-XII grossly intact, no focal motor or sensory deficits noted Skin: Intact with no visualized rashes Psych: Normal affect and mood ED course: 80-year-old feel presents with chief complaint of anxiety. Chart review was performed. Patient has history of anxiety. She was last seen in the hospital for suicidal ideation 4 days ago and was in the hospital for 3 days. Before being discharged home. Signs upon arrival are within acceptable limits. Patient is well-appearing at bedside. Laboratory evaluation obtained showing no acute processes. Chest x-rays negative. Patient reevaluated after having been given anxiolytic medications per she is observed in emergency department for 2 hours and 20 minutes stable medical condition. Patient reevaluated at 6:30 PM and appears to be well- appearing. She is showing no signs of distress. Patient be discharged. Advised follow-up with PCP. - Related Data Home Medications Medication Instructions Recorded Confirmed Budesonide-Formot 160-4.5 Mcg 2 puff INHALATION RT-BID PRN 06/03/17 03/02/21 [Symbicort 160-4.5 Mcg Inhaler] Albuterol Sulfate [Ventolin HFA] 2 puff INHALATION RT-Q4H PRN 09/10/20 03/02/21 Albuterol Nebulized [Ventolin 2.5 mg INHALATION RT-Q6H PRN 12/20/20 03/02/21 Nebulized] ARIPiprazole [Abilify] 2 mg PO DAILY 03/02/21 03/02/21 LORazepam [Ativan] 1 mg PO Q8H PRN 03/02/21 03/02/21 Previous Rx's Medication Instructions Recorded Acetaminophen Tab [Tylenol] 1,000 mg PO Q6HR PRN #30 tab 12/22/20 Atorvastatin [Lipitor] 20 mg PO HS 30 Days tab 02/14/21 Levothyroxine Sodium [Synthroid] 100 mcg PO DAILY@0630 30 Days tab 02/14/21 Mirtazapine [Remeron] 15 mg PO HS 30 Days tab 02/14/21 atenoloL [Tenormin] 50 mg PO DAILY 30 Days tab 02/14/21 FLUoxetine HCL [PROzac] 40 mg PO DAILY #15 cap 03/01/21 Allergies Allergy/AdvReac Type Severity Reaction Status Date / Time latex Allergy Swelling Verified 03/02/21 16:16 Review of Systems ROS Statement: Those systems with pertinent positive or pertinent negative responses have been documented in the HPI. ROS Other: All systems not noted in ROS Statement are negative. 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 History of Any Multi-Drug Resistant Organisms: None Reported Past Surgical History: Adenoidectomy, Appendectomy, Breast Surgery, Hysterectomy, Tonsillectomy Additional Past Surgical History / Comment(s): Bronchoscopy/biopsy, thoracentesis, L pyeloplasty/JJ cath, L breast core bx x3-benign, EGD, colonoscopy/benign polypectomy. Past Anesthesia/Blood Transfusion Reactions: Postoperative Nausea & Vomiting (PONV) Additional Past Anesthesia/Blood Transfusion Reaction / Comment(s): Pt has clausterphobia Past Psychological History: Anxiety, Bipolar, Depression Smoking Status: Former smoker Past Alcohol Use History: None Reported Past Drug Use History: None Reported - Past Family History Father Family Medical History: CVA/TIA Additional Family Medical History / Comment(s): Father of a cerebral hemorrhage at age 48yrs. Mother Family Medical History: Cancer Additional Family Medical History / Comment(s): Mother of lung cancer. Sister(s) Family Medical History: Cancer Additional Family Medical History / Comment(s): Sister of lung cancer General Exam Limitations: no limitations Course Vital Signs 03/02/21 16:13 Temperature 97.4 F L Pulse Rate 66 Respiratory 22 Rate Blood Pressure 128/75 O2 Sat by Pulse 92 L Oximetry Medical Decision Making - Lab Data Result diagrams: 03/02/21 16:59 03/02/21 16:59 Lab Results 03/02/21 03/02/21 Range/Units 16:59 16:59 WBC 4.9 (3.8-10.6) k/uL RBC 4.58 (3.80-5.40) m/uL Hgb 15.3 (11.4-16.0) gm/dL Hct 43.4 (34.0-46.0) % MCV 94.7 (80.0-100.0) fL MCH 33.4 (25.0-35.0) pg MCHC 35.2 (31.0-37.0) g/dL RDW 13.3 (11.5-15.5) % Plt Count 158 (150-450) k/uL MPV 7.1 Neutrophils % 81 % Lymphocytes % 8 % Monocytes % 7 % Eosinophils % 2 % Basophils % 0 % Neutrophils # 4.0 (1.3-7.7) k/uL Lymphocytes # 0.4 L (1.0-4.8) k/uL Monocytes # 0.3 (0-1.0) k/uL Eosinophils # 0.1 (0-0.7) k/uL Basophils # 0.0 (0-0.2) k/uL Sodium 137 (137-145) mmol/L Potassium 4.3 (3.5-5.1) mmol/L Chloride 106 (98-107) mmol/L Carbon Dioxide 27 (22-30) mmol/L Anion Gap 4 mmol/L BUN 20 H (7-17) mg/dL Creatinine 0.66 (0.52-1.04) mg/dL Est GFR (CKD-EPI)AfAm >90 (>60 ml/min/1.73 sqM) Est GFR (CKD-EPI)NonAf 85 (>60 ml/min/1.73 sqM) Glucose 102 H (74-99) mg/dL Calcium 9.1 (8.4-10.2) mg/dL Disposition Clinical Impression: Acute anxiety Disposition: HOME SELF-CARE Condition: Good Instructions (If sedation given, give patient instructions): Generalized Anxiety Disorder (ED) Is patient prescribed a controlled substance at d/c from ED?: No Referrals: Yao Haywood MD [Primary Care Provider] - 1-2 days
[2021-03-02 17:12] LABS: Basophils % (A) 0 %; Eosinophils # (A) 0.1 k/uL (0-0.7); Eosinophils % (A) 2 %; HCT 43.4 % (34.0-46.0); HGB 15.3 gm/dL (11.4-16.0); Lymphocytes # (A) 0.4 k/uL (1.0-4.8); Lymphocytes % (A) 8 %; MCH 33.4 pg (25.0-35.0); MCHC 35.2 g/dL (31.0-37.0); MCV 94.7 fL (80.0-100.0); Mean Platelet Volume 7.1; Monocytes # (A) 0.3 k/uL (0-1.0); Monocytes % (A) 7 %; Neutrophils % (A) 81 %; Platelet Count 158 k/uL (150-450); RBC 4.58 m/uL (3.80-5.40); RDW 13.3 % (11.5-15.5); WBC 4.9 k/uL (3.8-10.6)
[2021-03-02 17:21] LABS: African American GFR (CKD) >90 (>60 ml/min/1.73 sqM); Anion Gap 4 mmol/L; Blood Urea Nitrogen 20 mg/dL (7-17); Calcium 9.1 mg/dL (8.4-10.2); Carbon Dioxide 27 mmol/L (22-30); Chloride 106 mmol/L (98-107); Glucose 102 mg/dL (74-99); Non-African American GFR(CKD) 85 (>60 ml/min/1.73 sqM); Potassium 4.3 mmol/L (3.5-5.1); Sodium 137 mmol/L (137-145)
--- NOTE | 2021-03-02 18:19 | XR ---
EXAMINATION TYPE: XR chest 2V DATE OF EXAM: 03/02/2021 COMPARISON: 01/11/2021 HISTORY: Pain. TECHNIQUE: Frontal and lateral views of the chest are obtained. FINDINGS: There is chronic mild bibasilar opacities with mild blunting of the right costophrenic ang le. Otherwise no new focal opacity, significant pleural effusions or pneumothorax seen. The cardiome diastinal silhouette is stable. The osseous structures are intact. IMPRESSION: Stable chest without acute process.
[2021-03-02 18:35] VITALS: BP 120/81; PULSE 62; RESP 18
== END 2021-03-02 18:35 | disposition home or self-care (01) ==
LOC: EC 16:08
DX: F41.9 Anxiety disorder, unspecified (principal); I10 Essential (primary) hypertension; J44.9 Chronic obstructive pulmonary disease, unspecified; E03.9 Hypothyroidism, unspecified; E78.5 Hyperlipidemia, unspecified; F31.9 Bipolar disorder, unspecified; M19.90 Unspecified osteoarthritis, unspecified site; Z85.118 Personal history of other malignant neoplasm of bronchus and lung; Z86.718 Personal history of other venous thrombosis and embolism; Z87.891 Personal history of nicotine dependence; Z79.51 Long term (current) use of inhaled steroids; Z79.890 Hormone replacement therapy; Z79.899 Other long term (current) drug therapy; Z90.49 Acquired absence of other specified parts of digestive tract; Z91.040 Latex allergy status
CPT/HCPCS: 36415; 71046; 80048; 85025; 93005; 96374; 99284

== ENCOUNTER → 2021-04-16 | Outpatient (CLI) | payer MEDICARE, BC ==
--- NOTE | 2021-04-16 15:33 | US ---
EXAMINATION TYPE: US venous doppler duplex LE BI DATE OF EXAM: 04/16/2021 3:13 PM COMPARISON: NONE CLINICAL HISTORY: R60.0 Edema. Pt having bilateral leg swelling SIDE PERFORMED: Bilateral TECHNIQUE: The lower extremity deep venous system is examined utilizing real time linear array sonog orion with graded compression, doppler sonography and color-flow sonography. VESSELS IMAGED: Common Femoral Vein Deep Femoral Vein Greater Saphenous Vein * Femoral Vein Popliteal Vein Small Saphenous Vein * Proximal Calf Veins (* superficial vessels) Right Leg: Negative for DVT Left Leg: Negative for DVT Results called to Malia at Dr's office at time of exam IMPRESSION: No evidence for DVT.
[2021-04-16 16:07] LABS: African American GFR (CKD) >90 (>60 ml/min/1.73 sqM); Anion Gap 3 mmol/L; Blood Urea Nitrogen 21 mg/dL (7-17); Calcium 9.2 mg/dL (8.4-10.2); Carbon Dioxide 31 mmol/L (22-30); Chloride 105 mmol/L (98-107); Glucose 93 mg/dL (74-99); Non-African American GFR(CKD) 78 (>60 ml/min/1.73 sqM); Sodium 139 mmol/L (137-145)
== END | disposition home or self-care (01) ==
LOC: RADUSWWP 14:45
PROVIDERS: ATTEND Internal Medicine
DX: R22.43 Localized swelling, mass and lump, lower limb, bilateral (principal)
CPT/HCPCS: 36415; 80048; 93970

== ENCOUNTER → 2021-04-19 | Outpatient (CLI) | payer MEDICARE, BC | END | disposition home or self-care (01) | LOC: LABWHC1 12:15 | PROVIDERS: ATTEND Physician Assistant | DX: F31.81 Bipolar II disorder (principal) | CPT/HCPCS: 36415; 80164 ==

== ENCOUNTER → 2021-04-20 | Outpatient (CLI) | payer MEDICARE, BC ==
--- NOTE | 2021-04-24 12:45 | PE ---
Nuclear medicine PET/CT HISTORY: Lung carcinoma on the right, subsequent, C34.80 Lung Ca Patient received 10.8 mCi F-18 FDG intravenously, delayed scanning was performed from the skull base to the mid thighs. Localization and attenuation correction CT scan was performed. Correlation to prior nuclear medicine PET/CT dated 08/20/2019 Chest and neck: There are coronary artery calcifications. The previously identified right pleural eff usion has resolved in the interval. There are some metallic densities in the dependent portion of the posterior right hemithorax. Irregular appearance of the right hilum shows a stable appearance. There is no associated hypermetabolic uptake. No mediastinal, axillary, hilar, supraclavicular, or cervica l adenopathy. ABDOMEN: There is no adrenal mass or liver mass, no retroperitoneal adenopathy. No suspicious uptake. There is no ascites. Osseous structures show no suspicious uptake. Degenerative disc changes and facet arthropathy noted a t the lower lumbar spine. Paraspinal musculature uptake noted incidentally on the right is likely phy siologic. IMPRESSION: No suspicious uptake.
== END | disposition home or self-care (01) ==
LOC: RADPETMAIN 10:24
PROVIDERS: ATTEND Internal Medicine Hematology & Oncology
DX: C34.80 Malignant neoplasm of overlapping sites of unspecified bronchus and lung (principal)
CPT/HCPCS: 78815; A9552

== ENCOUNTER → 2021-09-03 | Outpatient (CLI) | payer MEDICARE, BC ==
--- NOTE | 2021-09-03 14:36 | CT ---
EXAMINATION TYPE: CT ChestAbdPelvis w con DATE OF EXAM: 09/03/2021 COMPARISON: Most recent PET CT April 20, 2021 and older studies. HISTORY: Lung Cancer small cell type diagnosed 2016. CT DLP: 1566 mGycm. Automated Exposure Control for Dose Reduction was Utilized. CONTRAST: CT scan of the thorax, abdomen and pelvis is performed with oral and with IV Contrast, patient inject ed with 100 ml mL of Isovue 300. FINDINGS: LUNGS: Moderate underlying emphysematous change greatest in the upper lobes is redemonstrated. Tiny r ecurrent right basilar pleural fluid collection on current study is new from most recent PET/CT, ther e is right-sided percutaneous pleural drainage catheter terminating in the base posteriorly on axial image 56 redemonstrated. Mild bibasilar linear scarring and/or atelectasis. No new greater than 5 mm noncalcified nodules or masses. MEDIASTINUM: There is post treatment change to the right hilar region with soft tissue thickening and volume loss redemonstrated extending superiorly. No significant change from most recent PET/CT. No n ew greater than 1 cm hilar or mediastinal lymph nodes. No cardiomegaly or pericardial effusion is s een. Coronary artery calcification is redemonstrated. LIVER/GB: No significant abnormality is appreciated. PANCREAS: No significant abnormality is seen. SPLEEN: No significant abnormality is seen. ADRENALS: No significant abnormality is seen. KIDNEYS: Stable 5 mm nonobstructing calculus left kidney mid to lower pole level axial image 71. BOWEL: Oral contrast reaches level of the sigmoid colon. No suspicious small or large bowel dilatatio n is seen. GENITAL ORGANS: Uterus is surgically absent. LYMPH NODES: No greater than 1cm abdominal or pelvic lymph nodes are appreciated. OSSEOUS STRUCTURES: Slight scoliotic curvature redemonstrated. OTHER: Moderate peripheral plaque of the aorta extends into branch vessels. Stable small fat-containi ng umbilical hernia. IMPRESSION: Stable posttreatment change to the right lung. No new suspicious mass or adenopathy iden tified to suggest active neoplastic recurrence. Recurrent tiny right pleural fluid collection despite percutaneous drainage catheter remaining present.
== END | disposition home or self-care (01) ==
LOC: RADCTMAIN 11:55
PROVIDERS: ATTEND Internal Medicine Hematology & Oncology
DX: C34.80 Malignant neoplasm of overlapping sites of unspecified bronchus and lung (principal)
CPT/HCPCS: 82565; 84520; 71260; 74177; 36415; Q9967

== ENCOUNTER → 2022-01-22 | Outpatient (CLI) | payer MEDICARE, BC ==
--- NOTE | 2022-01-22 11:00 | BD ---
EXAMINATION TYPE: Axial Bone Density DATE OF EXAM: 01/22/2022 COMPARISON: NONE CLINICAL HISTORY: 81 year old Female. ICD-10 CODE: Z78.[address] Height: 65 Weight: 149.0 FRAX RISK QUESTIONS: Alcohol (3 or more units per day): no Family History (Parent hip fracture): no Glucocorticoids (More than 3mos): no (Ex: prednisone, prednisolone, methylprednisolone, dexamethasone, and hydrocortisone). History of Fracture in Adulthood: yes Secondary Osteoporosis: 1. Type 1 Diabetes: no 2. Hyperthyroidism: no 3. Menopause before 45: no 4. Malnutrition: no 5. Chronic liver disease: no Rheumatoid Arthritis: no Current Tobacco Use: no RISK FACTORS HISTORY OF: Surgery to Spine/Hip(right/left)/Wrist (right/left): no Family History of Osteoporosis: no Active: no Diet low in dairy products/other sources of calcium: no Postmenopausal woman: yes Lost more than 2 inches in height since high school: no MEDICATIONS: Thyroid Medications: synthroid How Lon years Additional History: pt had lung cancer 5 years ago EXAM MEASUREMENTS: Bone mineral densitometry was performed using the [employer] System. Bone mineral density as measured about the Lumbar spine is: ----- L1-L4(G/cm2): 0.986 T Score Values are as follows: ----- L1: -1.5 ----- L2: -1.3 ----- L3: -1.2 ----- L4: -2.5 ----- L1-L4: -1.6 Bone mineral density has: decreased -6.0 % since study of: 06.09.2008 Bone mineral density about the R hip (g/cm2): 0.633 Bone mineral density about the L hip (g/cm2): 0.637 T Score values are as follows: -----R Neck: -2.9 -----L Neck: -2.9 -----R Total: -3.1 -----L Total: -2.8 Bone mineral density has: decreased -11.8 % since study of: 06.09.2008 FRAX%s: The graph provided illustrates a 32.8% chance for a major osteoporotic fx and a 12.5% chance for the hips probability for fx in 10 years time. IMPRESSION: Osteoporosis (T Score less than -2.5). There is increased fracture risk and therapy is usually indicated based on age. Re-Screen 1-2 years. NOTE: T-SCORE=SD OF THE YOUNG ADULT MEAN.
--- NOTE | 2022-01-23 07:45 | MM ---
Reason for Exam: Screening (asymptomatic). Last mammogram was performed 1 year(s) and 2 month(s) ago. Patient History: Menarche at age 15. First Full-Term at age 26. Hysterectomy at age 34. Postmenopausal. Other cancer. Previous chest radiation therapy. 05/01/2001, Benign Stereotactic Core Biopsy on the left side. 04/11/2000, Benign Stereotactic Core Biopsy on the left side. 08/22/2010, Cancelled Left US Needle Biopsy on the left side. Sister had breast cancer, age 60. Mother had breast cancer, age 64. Risk Values: My 5 year model risk: 10.1%. NCI Lifetime model risk: 16.2%. Prior Study Comparison: 08/17/2018 Bilateral Screening Mammogram, [facility]. 09/03/2019 Bilateral Screening Mammogram, [facility]. 11/23/2020 Bilateral Screening Mammogram, [facility]. Tissue Density: The breast tissue is heterogeneously dense. This may lower the sensitivity of mammography. Findings: Analyzed By CAD. There is no suspicious group of microcalcifications or new suspicious mass in either breast. Overall Assessment: Negative, BI-RAD 1 Management: Screening Mammogram of both breasts in 1 year. A clinical breast exam by your physician is recommended on an annual basis and results should be correlated with mammographic findings. Electronically signed and approved by: Bassem Zepeda M.D. Radiologis
== END | disposition home or self-care (01) ==
LOC: RADMAMWWP 08:07
PROVIDERS: ATTEND Internal Medicine
DX: Z12.31 Encounter for screening mammogram for malignant neoplasm of breast (principal); M81.0 Age-related osteoporosis without current pathological fracture; Z78.0 Asymptomatic menopausal state; Z80.3 Family history of malignant neoplasm of breast
CPT/HCPCS: 77063; 77067; 77080

== ENCOUNTER → 2022-03-06 | Outpatient (CLI) | payer MEDICARE, BC ==
[2022-03-06 08:53] LABS: African American GFR (CKD) >90 (>60 ml/min/1.73 sqM); Blood Urea Nitrogen 18 mg/dL (7-17); Non-African American GFR(CKD) 79 (>60 ml/min/1.73 sqM)
--- NOTE | 2022-03-06 22:31 | CT ---
EXAMINATION TYPE: CT ChestAbdPelvis w con DATE OF EXAM: 03/06/2022 INDICATION: Follow up for lung cancer. COMPARISON: CT DLP: 778.9 mGycm CONTRAST: Performed with Oral Contrast and with IV Contrast, patient injected with 100ml mL of Isovue 300. TECHNIQUE: Axial images at 5 mm thick sections. Reconstructed images in the coronal plane. Delayed images through the kidneys. FINDINGS: CT CHEST: Portion of the thyroid visualized is normal. No suspicious lung nodules or focal infiltrates are present. Minimal right pleural effusion is presen t. Drainage catheter is within the pleural fluid. Moderate emphysematous changes are present. No enlarged mediastinal or hilar adenopathy is evident. The ascending aorta diameter at the level of the main pulmonary artery is 3.3 cm. The main pulmonary artery diameter at the bifurcation is 3.[address] ABDOMEN: Liver: Normal Spleen: Normal Pancreas: Normal Adrenal glands: The adrenal glands are normal. Gallbladder: Normal . Extensive anterior to the liver. Kidneys: No masses are evident. No hydronephrosis is present. No cysts are present. There is a 0.7 cm nonobstructing renal stone inferior pole left kidney. Left renal cortex appears somewhat thinned. There is mild hydronephrosis. Hydroureter is not evident. There is a 0.7 cm calcification near the l eft ureterovesical junction. This is likely a phlebolith. Aorta: Vascular calcification is within the aorta. Inferior vena cava: Normal. CT PELVIS: Loops of bowel within the abdomen and pelvis are normal. Few diverticuli are present. There are lo ops of bowel which are incompletely distended or lack oral contrast limiting their evaluation. Appendix: Normal as visualized. Urinary bladder: Unremarkable Genitourinary structures: Uterus and ovaries are not identified. Osseous structures: No suspicious lytic or sclerotic lesions. IMPRESSIONS: 1. No suspicious changes to suggest recurrent or metastatic lung cancer. 2. Moderate emphysematous changes, stable from comparison.
== END | disposition home or self-care (01) ==
LOC: RADCTMAIN 07:57
PROVIDERS: ATTEND Internal Medicine Hematology & Oncology
DX: C34.80 Malignant neoplasm of overlapping sites of unspecified bronchus and lung (principal); J43.9 Emphysema, unspecified
CPT/HCPCS: 82565; 84520; 71260; 74177; 36415; Q9967

== ENCOUNTER → 2022-04-17 | Outpatient (CLI) | payer MEDICARE, BC ==
--- NOTE | 2022-04-18 09:26 | XR ---
EXAMINATION TYPE: XR chest 2V DATE OF EXAM: 04/17/2022 COMPARISON: 03/02/2021 TECHNIQUE: PA and lateral views submitted. HISTORY: Difficulty breathing FINDINGS: Diffuse emphysematous changes with subsegmental changes at lung bases. Chronic rib cage deformities. Prominence of the right hilum stable. Atherosclerotic change aorta. Nodule overlying the medial biju nal right clavicle is also stable measuring less than a centimeter. Biapical pleural technique. Ectas ia of the aorta with degenerative changes. Diffuse hyperinflation. IMPRESSION: 1. COPD with basilar atelectasis favored over early infiltrate. Interstitium slightly increased relat ayla the prior exam may represent progression of chronic interstitial lung disease, superimposed pneum onitis or less likely mild venous congestion. 2. Prominence of the josiah may be on the basis of pulmonary arterial hypertension.
== END | disposition home or self-care (01) ==
LOC: RADXRMAIN 15:49
PROVIDERS: ATTEND Internal Medicine
DX: J44.9 Chronic obstructive pulmonary disease, unspecified (principal); J06.9 Acute upper respiratory infection, unspecified
CPT/HCPCS: 71046

== ENCOUNTER → 2022-07-06 | Outpatient (CLI) | payer MEDICARE, BC ==
--- NOTE | 2022-07-09 07:25 | PE ---
EXAMINATION TYPE: PET CT fusion skull to thigh DATE OF EXAM: 07/06/2022 COMPARISON: Most recent CT March 06, 2022 and older studies HISTORY: Right sided Lung cancer progress study. Completed treatment in 2019. TECHNIQUE: Following the intravenous administration of 12.6 mCi of F-18 FDG, whole body images are p erformed from the skull base to the midthigh. Images are reviewed on the computer in the coronal, ax ial, and sagittal planes. Reconstructed rotating images are created on independent workstation and r eviewed on the computer. A localization and attenuation correction CT is performed in conjunction w ith the PET scan. Blood glucose level equals 92. SCAN: Subsequent Scan FINDINGS: SKULL BASE AND NECK: No new areas of abnormal hypermetabolic uptake. CHEST, MEDIASTINUM, AND HILAR REGION: No new areas of abnormal hypermetabolic uptake. ABDOMEN AND PELVIS: No new areas of abnormal hypermetabolic uptake. OSSEOUS STRUCTURES: No new areas of abnormal hypermetabolic uptake. OTHER CT: Mild calcified plaque bilateral carotid bulb level redemonstrated. Background moderate to a dvanced underlying emphysematous change is again seen. There is small right pleural fluid collection despite percutaneous pleural drainage catheter. This is larger in size from prior. Coronary artery ca lcifications are again seen. Stable tiny inferior pericardial effusion. Stable 7 mm calculus lower pole left kidney axial image 150. Facet arthropathy lower lumbar levels re demonstrated. IMPRESSION: No new areas of abnormal hypermetabolic uptake to suggest active neoplastic recurrence.
== END | disposition home or self-care (01) ==
LOC: RADPETMAIN 10:26
PROVIDERS: ATTEND Internal Medicine Hematology & Oncology
DX: C34.81 Malignant neoplasm of overlapping sites of right bronchus and lung (principal)
CPT/HCPCS: 78815; A9552

== ENCOUNTER → 2022-12-02 | Outpatient (CLI) | payer MEDICARE, BC ==
[2022-12-02 17:15] LABS: Basophils # (A) 0.03 X 10*3/uL (0.00-0.10); Basophils % (A) 0.5 %; Eosinophils # (A) 0.13 X 10*3/uL (0.04-0.35); Eosinophils % (A) 2.3 %; HCT 44.7 % (37.2-46.3); HGB 14.5 g/dL (12.0-15.0); Immature Grans, Automated 0.4 %; Lymphocytes # (A) 0.41 X 10*3/uL (0.90-5.00); Lymphocytes % (A) 7.3 %; MCH 30.5 pg (27.0-32.0); MCHC 32.4 g/dL (32.0-37.0); MCV 94.1 fL (80.0-97.0); Monocytes # (A) 0.43 X 10*3/uL (0.20-1.00); Monocytes % (A) 7.6 %; NRBC Per 100 WBC 0 /100 WBCS (0.0-0.0); Neutrophils # (A) 4.61 X 10*3/uL (1.80-7.70); Neutrophils % (A) 81.9 %; Platelet Count 139 X 10*3/uL (140-440); RBC 4.75 X 10*6/uL (4.10-5.20); RDW 13.2 % (11.5-14.5); WBC 5.63 X 10*3/uL (4.50-10.00)
[2022-12-02 17:43] LABS: ALT 11 U/L (8-44); AST 19 U/L (13-35); African American GFR (CKD) 90.2 (60.0-200.0); Albumin 3.4 g/dL (3.8-4.9); Albumin/Globulin Ratio 2.05 (1.60-3.17); Alkaline Phosphatase 90 U/L (41-126); BUN/Creat Ratio 26.58 Ratio (12.00-20.00); Blood Urea Nitrogen 19.4 mg/dL (9.0-27.0); Calcium 8.8 mg/dL (8.7-10.3); Carbon Dioxide 27.4 mmol/L (20.0-27.5); Chloride 106 mmol/L (96-109); Chol/HDL Ratio 3.03 Ratio; Globulin 1.7 g/dL (1.6-3.3); Glucose 89 mg/dL (70-110); LDL Cholesterol,Calculated 110.1 mg/dL (0.0-131.0); Non-African American GFR(CKD) 77.8 (60.0-200.0); Potassium 4.9 mmol/L (3.5-5.5); Sodium 145 mmol/L (135-145)
[2022-12-02 19:12] LABS: Valproic Acid (Depakene) 29.6 ug/mL (50.0-100.0)
== END | disposition home or self-care (01) ==
LOC: LABWHC1 10:55
PROVIDERS: ATTEND Internal Medicine
DX: Z00.00 Encounter for general adult medical examination without abnormal findings (principal); E03.9 Hypothyroidism, unspecified; M81.0 Age-related osteoporosis without current pathological fracture; F31.4 Bipolar disorder, current episode depressed, severe, without psychotic features
CPT/HCPCS: 36415; 80053; 80061; 80164; 82306; 84439; 84443; 85025

== ENCOUNTER → 2023-02-12 | Outpatient (CLI) | payer MEDICARE, BC ==
--- NOTE | 2023-02-12 10:23 | XR ---
EXAMINATION TYPE: XR chest 2V DATE OF EXAM: 02/12/2023 COMPARISON: 05/15/2022 TECHNIQUE: PA and lateral views submitted. HISTORY: Pain FINDINGS: Right lower lobe infiltrate and small effusion. Right-sided chest tube appears stable. Left lung molly r. There is prominence of the right hilum. Underlying COPD. Calcified granuloma medial margin right u pper lobe. Diffuse osteopenia. Atherosclerotic change aorta and degenerative changes of the spine. Va jackelin 1 cm nodule medial margin left upper lobe. IMPRESSION: 1. COPD with small right pleural effusion and associated atelectasis. Prominence of the right hilum s table. Unchanged from 2021. No abnormal uptake was seen by previous PET scan. 2. There is a vague nodular density measuring 1 cm left upper lobe. Recommend repeat CT chest.
[2023-02-12 15:27] LABS: Basophils # (A) 0.02 X 10*3/uL (0.00-0.10); Basophils % (A) 0.4 %; Eosinophils # (A) 0.16 X 10*3/uL (0.04-0.35); Eosinophils % (A) 2.9 %; HCT 41.5 % (37.2-46.3); HGB 13.8 d/dL (12.0-15.0); Lymphocytes # (A) 0.32 X 10*3/uL (0.90-5.00); Lymphocytes % (A) 5.8 %; MCH 31.5 pg (27.0-32.0); MCHC 33.3 d/dL (32.0-37.0); MCV 94.7 FL (80.0-97.0); Mean Platelet Volume 9.4 FL (9.5-12.2); Monocytes # (A) 0.65 X 10*3/uL (0.20-1.00); Monocytes % (A) 11.7 %; NRBC Per 100 WBC 0 X 10*3/uL (0.00-0.01); Neutrophils # (A) 4.37 X 10*3/uL (1.80-7.70); Neutrophils % (A) 78.8 %; Platelet Count 202 X 10*3/uL (140-440); RBC 4.38 X 10*6/uL (4.10-5.20); RDW 12.6 % (11.5-14.5); WBC 5.54 X 10*3/uL (4.50-10.00)
[2023-02-12 15:52] LABS: BUN/Creat Ratio 24.86 Ratio (12.00-20.00); Blood Urea Nitrogen 17.4 mg/dL (9.0-27.0); Glucose 94 mg/dL (70-110)
[2023-02-12 15:53] LABS: Calcium 9.2 mg/dL (8.7-10.3); Carbon Dioxide 30.9 mmol/L (21.6-31.8); Chloride 101 mmol/L (96-109); Potassium 4.7 mmol/L (3.5-5.5); Sodium 143 mmol/L (135-145)
== END | disposition home or self-care (01) ==
LOC: LABWHC1 09:44
PROVIDERS: ATTEND Internal Medicine
DX: J44.9 Chronic obstructive pulmonary disease, unspecified (principal); J90 Pleural effusion, not elsewhere classified
CPT/HCPCS: 36415; 71046; 80048; 85025

== ENCOUNTER 2023-02-26 10:40 | Inpatient (IN) | payer MEDICARE, BC ==
[2023-02-26] MEDS ORDERED: IPRATROPIUM-ALBUTEROL 3 ML NEB INHALATION STA (11:35)
[2023-02-26] MEDS ORDERED: methylPREDNISolone SOD SUCCI 125 MG/2 ML VIAL IV STA (11:35)
[2023-02-26] MEDS ORDERED: SODIUM CHLORIDE 0.9% 1,000 ML IV STA (11:35)
[2023-02-26 12:32] LABS: Basophils % (A) 0 %; Eosinophils # (A) 0.3 k/uL (0-0.7); Eosinophils % (A) 4 %; HCT 39.9 % (34.0-46.0); HGB 13.3 gm/dL (11.4-16.0); Lymphocytes # (A) 0.2 k/uL (1.0-4.8); Lymphocytes % (A) 3 %; MCH 31.8 pg (25.0-35.0); MCHC 33.3 g/dL (31.0-37.0); MCV 95.4 fL (80.0-100.0); Mean Platelet Volume 7.6; Monocytes # (A) 0.7 k/uL (0-1.0); Monocytes % (A) 8 %; Neutrophils # (A) 7.9 k/uL (1.3-7.7); Neutrophils % (A) 85 %; Platelet Count 232 k/uL (150-450); RBC 4.18 m/uL (3.80-5.40); WBC 9.3 k/uL (3.8-10.6)
[2023-02-26 12:39] LABS: ALT 14 U/L (4-34); AST 19 U/L (14-36); African American GFR (CKD) >90 (>60 ml/min/1.73 sqM); Albumin 2.8 g/dL (3.5-5.0); Alkaline Phosphatase 106 U/L (38-126); Anion Gap 5 mmol/L; Blood Urea Nitrogen 11 mg/dL (7-17); Calcium 8.6 mg/dL (8.4-10.2); Carbon Dioxide 31 mmol/L (22-30); Chloride 102 mmol/L (98-107); Glucose 107 mg/dL (74-99); Magnesium 2.1 mg/dL (1.6-2.3); Non-African American GFR(CKD) 85 (>60 ml/min/1.73 sqM); Potassium 4.4 mmol/L (3.5-5.1); Sodium 138 mmol/L (137-145); Total Bilirubin 0.3 mg/dL (0.2-1.3); Total Protein 5.3 g/dL (6.3-8.2)
[2023-02-26 12:46] LABS: NT-Pro-B-Type Natriuretic Pept 333 pg/mL
[2023-02-26 12:54] LABS: Partial Thromboplastin Time 24.6 sec (22.0-30.0); Prothrombin Time 10.3 sec (9.0-12.0)
--- NOTE | 2023-02-26 13:56 | XR ---
EXAMINATION TYPE: XR chest 2V DATE OF EXAM: 02/26/2023 1:51 PM COMPARISON: Chest radiographs from 02/12/2023 TECHNIQUE: XR chest 2V Frontal and lateral views of the chest. CLINICAL INDICATION:Female, 82 years old with history of difficulty breathing; FINDINGS: Patient is rotated which limits evaluation. Lungs/Pleura: No pneumothorax. Hyperinflation. Chronic senescent parenchyma changes. Patchy consolida tion identified within the right mid and lower lung with associated small pleural effusion. Pulmonary vascularity: Unremarkable. Heart/mediastinum: Cardiomediastinal silhouette is prominent in size. Atherosclerotic calcifications are seen in the aorta. Musculoskeletal: No acute osseous pathology. Mild degenerative changes of the thoracic spine. IMPRESSION: Background COPD changes with right mid to lower lung patchy consolidation with small right pleural ef fusion concerning for pneumonia.
--- NOTE | 2023-02-26 14:28 | CT ---
EXAMINATION TYPE: CT chest angio for PE DATE OF EXAM: 02/26/2023 COMPARISON: PET/CT 02/21/2023 HISTORY: 82-year-old female shortness of breath, difficulty breathing, evaluate for PE, history of fabiano ng cancer. TECHNIQUE: Contiguous axial scanning of the chest performed with IV Contrast, patient injected with 1 00 mL of Isovue 370. Coronal/sagittal MIP reconstructions performed. CT DLP: 259.6 mGycm Automated exposure control for dose reduction was used. FINDINGS: The heart is borderline enlarged without pericardial effusion. No flattening of the interventricular septum reflux of contrast into the hepatic veins. Scattered LAD coronary artery calcifications. Borderline ectatic aortic root and ascending aorta at 3.5 cm. Moderate atherosclerotic arch calcifica tions. Borderline ectatic upper descending thoracic aorta 3.1 cm. Satisfactory opacification the pulmonary arterial system. No large central or definite lobar branch p ulmonary embolus. There is breathing motion with limits assessment of the more distal arterial branch es. Unable to exclude a subsegmental branch embolus to the basilar left lower lobe, axial image 95. No thoracic lymphadenopathy by CT size criteria. Advanced emphysematous change. Soft tissue encasing the right hilum with contiguous volume loss and opacity along medial right uppe r lobe probably relates to posttreatment change and should continue to be followed. There is ongoing small right pleural effusion though with areas of fluid loculation such as the subca rinal medial right lower lobe measuring 2.9 cm, lateral right midlung measuring 3.4 x 1.7 cm, and per iphery of the right midlung measuring 8.7 x 2.8 cm. These areas appear to have been present previousl y and are fluctuating in the. The collections may be slightly increased though the overall pleural ef fusion has improved. Removal of the previous drainage catheter. Loculated pleural effusion posteromedial right upper to midlung spans 8.4 cm craniocaudal. On axial i mages, it measures 5.9 x 2.0 cm. New/increased from prior. There is extensive consolidation throughout the right base and interstitial groundglass change and se ptal lines throughout the right mid and lower lung. Patchy consolidation right middle lobe have incre ased as well. Visualized upper abdomen shows mild thickening of the left adrenal gland without discrete nodularity. Bones: No osseous destructive process. IMPRESSION: 1. BREATHING MOTION ARTIFACT LIMITING ASSESSMENT FOR PULMONARY EMBOLI. NO LARGE CENTRAL OR DEFINITE L OBAR BRANCH PULMONARY EMBOLUS. UNABLE TO EXCLUDE A SUBSEGMENTAL BRANCH EMBOLUS TO THE BASILAR LEFT LO WER LOBE. REFER TO AXIAL IMAGE 95. 2. COPD WITH ADVANCED EMPHYSEMA AND SIMILAR SOFT TISSUE ENCASEMENT OF THE RIGHT HILUM WITH CONTIGUOUS OPACITY AND VOLUME LOSS ALONG THE MEDIAL RIGHT UPPER LOBE. FINDINGS LIKELY CORRESPOND TO SITE OF ASIM ATED DISEASE AND POSTTREATMENT CHANGE. ONGOING FOLLOW-UP RECOMMENDED. 3. SMALL RIGHT PLEURAL EFFUSION WHICH HAS SLIGHTLY DECREASED IN THE INTERVAL. REMOVAL OF PREVIOUS ANTHONY INAGE CATHETER. HOWEVER, THERE ARE OTHER LOCULATED AREAS OF PLEURAL EFFUSION ON THE RIGHT THAT ARE SI MILAR TO SLIGHTLY INCREASED. COLLECTION ALONG THE POSTEROMEDIAL RIGHT UPPER TO MID LUNG IN PARTICULAR HAS INCREASED TO A GREATER DEGREE NOW MEASURING UP TO 8.4 X 5.9 CM. 4. INCREASING PATCHY AIRSPACE OPACITY BASILAR RIGHT LOWER LOBE AND RIGHT MIDDLE LOBE. CORRELATE FOR PROGRESSIVE POST RADIATION THERAPY CHANGES VERSUS PNEUMONIA.
[2023-02-26] MEDS ORDERED: AZITHROMYCIN 500 MG in SODIUM CHLORIDE 0.9% 250 ML IVPB STA (14:45)
[2023-02-26] MEDS ORDERED: NALOXONE 0.4 MG/ML 1 ML VIAL IV PRN (14:50)
[2023-02-26] MEDS ORDERED: ACETAMINOPHEN TAB 325 MG TAB PO PRN (14:50)
[2023-02-26] MEDS ORDERED: ALBUTEROL NEBULIZED 2.5 MG/3 ML INHALATION PRN (14:52)
[2023-02-26] MEDS ORDERED: FUROSEMIDE 20 MG TAB PO PRN (14:52)
--- NOTE | 2023-02-26 14:53 | ED ---
General Adult HPI - General Chief complaint: Shortness of Breath Stated complaint: ADAM Time Seen by Provider: 02/26/23 11:20 Source: patient, RN notes reviewed, old records reviewed Mode of arrival: ambulatory Limitations: no limitations - History of Present Illness Initial comments: Patient is an 82-year-old female with past medical history remarkable for lung cancer status post radiation and chemo, right pleural catheter for chronic drainage of the right pleural effusion, COPD, emphysema presents emergency department with increased shortness breath that has been progressive over the last few weeks as well as some bloody drainage from her pleural catheter over the last for 5 days. Denies productive cough but states she is coughing. Endorses shortness of breath. Denies any fevers or known sick contacts. Denies any abdominal pain, nausea, vomiting. Has no other acute complaints at this time. Presents over concern for shortness of breath. No history of blood clots. She is not on blood thinners. Denies any lower extremity edema. - Related Data Home Medications Medication Instructions Recorded Confirmed Albuterol Sulfate [Ventolin HFA] 2 puff INHALATION RT-Q4H PRN 09/10/20 02/26/23 ARIPiprazole [Abilify] 2 mg PO DAILY 03/02/21 02/26/23 Aspirin EC [Ecotrin Low Dose] 81 mg PO HS 02/26/23 02/26/23 Divalproex Sodium 125 mg PO BID 02/26/23 02/26/23 Furosemide [Lasix] 20 - 40 mg PO DAILY PRN 02/26/23 02/26/23 Levothyroxine Sodium [Synthroid] 100 mcg PO DAILY 02/26/23 02/26/23 Mirtazapine [Remeron] 7.5 mg PO HS 02/26/23 02/26/23 Sertraline [Zoloft] 50 mg PO DAILY 02/26/23 02/26/23 Previous Rx's Medication Instructions Recorded Atorvastatin [Lipitor] 20 mg PO HS 30 Days tab 02/14/21 atenoloL [Tenormin] 50 mg PO DAILY 30 Days tab 02/14/21 Allergies Allergy/AdvReac Type Severity Reaction Status Date / Time latex Allergy Swelling Verified 02/26/23 12:54 Review of Systems ROS Statement: Those systems with pertinent positive or pertinent negative responses have been documented in the HPI. Review of Systems: CONST: Denies fever EYES: Denies blurry vision ENT: Denies nasal congestion C/V: Denies Chest pain RESP: Endorses Shortness of breath GI: Denies abdominal pain : Denies dysuria SKIN: Denies rash. MSK: Denies joint pain. NEURO: Denies headache ROS Other: All systems not noted in ROS Statement are negative. 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 History of Any Multi-Drug Resistant Organisms: None Reported Past Surgical History: Adenoidectomy, Appendectomy, Breast Surgery, Hysterectomy, Tonsillectomy Additional Past Surgical History / Comment(s): Bronchoscopy/biopsy, thoracentesis, L pyeloplasty/JJ cath, L breast core bx x3-benign, EGD, colonoscopy/benign polypectomy. Past Anesthesia/Blood Transfusion Reactions: Postoperative Nausea & Vomiting (PONV) Additional Past Anesthesia/Blood Transfusion Reaction / Comment(s): Pt has clausterphobia Past Psychological History: Anxiety, Bipolar, Depression Smoking Status: Former smoker Past Alcohol Use History: None Reported Past Drug Use History: None Reported - Past Family History Father Family Medical History: CVA/TIA Additional Family Medical History / Comment(s): Father of a cerebral hemorrhage at age 48yrs. Mother Family Medical History: Cancer Additional Family Medical History / Comment(s): Mother of lung cancer. Sister(s) Family Medical History: Cancer Additional Family Medical History / Comment(s): Sister of lung cancer General Exam - General Exam Comments Initial Comments: General: Appears in no acute distress. HEAD: Normal with no signs of head trauma. EYES: PERRLA, EOMI, conjunctiva normal, no discharge. ENT: Hearing grossly intact, normal oropharynx. RESPIRATORY: Bilateral end expiratory wheezing. No significant hypoxia. No significant increased work of breathing. Somewhat coarse and decreased breath sounds on the right. Patient is on her chronic nasal cannula oxygen. C/V: Regular rate and rhythm. S1 and S2 auscultated, no edema, peripheral pulses 2+ and intact throughout ABD: Abd is soft, nontender, nondistended EXT: Normal range of motion, no obvious deformity SKIN: No rashes or lesions observed on exposed skin. NEURO: Alert and oriented 4. Limitations: no limitations Course Vital Signs 02/26/23 02/26/23 02/26/23 10:51 11:57 12:18 Temperature 98.5 F Pulse Rate 72 74 74 Respiratory 24 15 Rate Blood Pressure 110/71 O2 Sat by Pulse 96 Oximetry 02/26/23 02/26/23 12:26 14:30 Temperature 97.4 F L Pulse Rate 74 98 Respiratory 20 Rate Blood Pressure 109/67 O2 Sat by Pulse 91 L Oximetry Medical Decision Making - Medical Decision Making Was pt. sent in by a medical professional or institution (, PA, MATERIALS HANDLING COORDINATOR, urgent care, hospital, or halfway...) When possible be specific @ -No Did you speak to anyone other than the patient for history (EMS, parent, family, police, friend...)? What history was obtained from this source @ -No Did you review nursing and triage notes (agree or disagree)? Why? @ -I reviewed and agree with nursing and triage notes Were old charts reviewed (outside hosp., previous admission, EMS record, old EKG, old radiological studies, urgent care reports/EKG's, halfway records)? Report findings @ -yes Differential Diagnosis (chest pain, altered mental status, abdominal pain women, abdominal pain men, vaginal bleeding, weakness, fever, dyspnea, syncope, headache, dizziness, GI bleed, back pain, seizure, CVA, palpatations, mental health, musculoskeletal)? @ -Differential Dyspnea: Coronary syndrome, arrhythmia, tamponade, asthma, COPD, pulmonary embolism, pneumonia, pneumothorax, pulmonary effusion, anaphylaxis, diabetic ketoacidosis, flailed chest, pulmonary contusion, diaphragmatic rupture, anemia, neuromuscular, this is not meant to be an all-inclusive list. EKG interpreted by me (3pts min.). @ -As above X-rays interpreted by me (1pt min.). @ -Chest x-ray reveals patchy mid and lower lung consolidation as well as pleural effusion concerning for pneumonia. CT interpreted by me (1pt min.). @ -CT angiogram of the chest reveals no obvious pulmonary embolism. There is chronic scarring and changes from treatment for cancer. Patient does have the right-sided findings concerning for pneumonia as well as a right-sided pleural effusion. U/S interpreted by me (1pt. min.). @ -None done What testing was considered but not performed or refused? (CT, X-rays, U/S, labs)? Why? @ -None What meds were considered but not given or refused? Why? @ -None Did you discuss the management of the patient with other professionals (professionals i.e. , PA, MATERIALS HANDLING COORDINATOR, lab, RT, psych nurse, social media specialist, brass instrument repair technician, teacher, parking regulation enforcement officer, hospice case manager)? Give summary @ -Discussed with CT surgery Chandra Pathak who agreed to evaluate the patient. Consult was placed. Discussed with the admitting physician Dr. Couch who accepted the admission. Was smoking cessation discussed for >3mins.? @ -No Was critical care preformed (if so, how long)? @ -No Were there social determinants of health that impacted care today? How? (Homelessness, low income, unemployed, alcoholism, drug addiction, transp ortation, low edu. Level, literacy, decrease access to med. care, skilled nursing, rehab)? @ -No Was there de-escalation of care discussed even if they declined (Discuss DNR or withdrawal of care, Hospice)? DNR status @ -No What co-morbidities impacted this encounter? (DM, HTN, Smoking, COPD, CAD, Cancer, CVA, ARF, Chemo, Hep., AIDS, mental health diagnosis, sleep apnea, morbid obesity)? @ -Lung cancer, COPD Was patient admitted / discharged? Hospital course, mention meds given and route, prescriptions, significant lab abnormalities, going to OR and other pertinent info. @ -Based on the patient's presentation and physical exam, presents with findings concerning for possible infectious in the right lung but also COPD exacerbation. We will obtain cardio pulmonary labs. She was in agreement this plan. She'll be symptomatically treated for COPD, she'll receive IV steroids as well as breathing treatments. Patient was in agreement with this plan. Labs are remarkable for a mildly elevated d-dimer of 1.77, and CT angiogram of the chest reveals no evidence of PE. BNP within normal limits. Troponin undetectable. Remainder the labs are within acceptable limits. EKG shows no signs of acute ischemia. Imaging shows right-sided pneumonia and right-sided pleural effusion which is somewhat chronic. Patient's CT shows no evidence of PE, chronic changes, as well as right-sided pneumonia. On reevaluation, we discussed her workup. She will be admitted. I will have cardiothoracic surgery evaluate her drainage catheter. I spoke with Chandra Pathak who agreed to consult. I also spoke with the admitting physician, Dr. davis who was in agreement with the admission. Patient was placed on IV antibiotics for pneumonia. Undiagnosed new problem with uncertain prognosis? @ -No Drug Therapy requiring intensive monitoring for toxicity (Heparin, Nitro, Insulin, Cardizem)? @ -No Were any procedures done? @ -No Diagnosis/symptom? @ -COPD Acute, or Chronic, or Acute on Chronic? @ -Acute Uncomplicated (without systemic symptoms) or Complicated (systemic symptoms)? @ -Compensated Side effects of treatment? @ -No Exacerbation, Progression, or Severe Exacerbation? @ -Exacerbation Poses a threat to life or bodily function? How? (Chest pain, [place], [place], pneumonia, PE, COPD, DKA, ARF, appy, cholecystitis, CVA, Diverticulitis, Homicidal, Suicidal, threat to staff... and all critical care pts) @ -Yes Diagnosis/symptom? @ -Pneumonia Acute, or Chronic, or Acute on Chronic? @ -Acute Uncomplicated (without systemic symptoms) or Complicated (systemic symptoms)? @ -Complicated Side effects of treatment? @ -none Exacerbation, Progression, or Severe Exacerbation] @ -no Poses a threat to life or bodily function? @ -Yes - Lab Data Result diagrams: 02/26/23 11:57 02/26/23 11:57 Lab Results 02/26/23 02/26/23 02/26/23 Range/Units 11:57 11:57 11:57 WBC 9.3 (3.8-10.6) k/uL RBC 4.18 (3.80-5.40) m/uL Hgb 13.3 (11.4-16.0) gm/dL Hct 39.9 (34.0-46.0) % MCV 95.4 (80.0-100.0) fL MCH 31.8 (25.0-35.0) pg MCHC 33.3 (31.0-37.0) g/dL RDW 13.0 (11.5-15.5) % Plt Count 232 (150-450) k/uL MPV 7.6 Neutrophils % 85 % Lymphocytes % 3 % Monocytes % 8 % Eosinophils % 4 % Basophils % 0 % Neutrophils # 7.9 H (1.3-7.7) k/uL Lymphocytes # 0.2 L (1.0-4.8) k/uL Monocytes # 0.7 (0-1.0) k/uL Eosinophils # 0.3 (0-0.7) k/uL Basophils # 0.0 (0-0.2) k/uL PT 10.3 (9.0-12.0) sec INR 1.0 (<1.2) APTT 24.6 (22.0-30.0) sec D-Dimer 1.77 H (<0.60) mg/L FEU Sodium 138 (137-145) mmol/L Potassium 4.4 (3.5-5.1) mmol/L Chloride 102 (98-107) mmol/L Carbon Dioxide 31 H (22-30) mmol/L Anion Gap 5 mmol/L BUN 11 (7-17) mg/dL Creatinine 0.63 (0.52-1.04) mg/dL Est GFR (CKD-EPI)AfAm >90 (>60 ml/min/1.73 sqM) Est GFR (CKD-EPI)NonAf 85 (>60 ml/min/1.73 sqM) Glucose 107 H (74-99) mg/dL Plasma Lactic Acid Sascha (0.7-2.0) mmol/L Calcium 8.6 (8.4-10.2) mg/dL Magnesium 2.1 (1.6-2.3) mg/dL Total Bilirubin 0.3 (0.2-1.3) mg/dL AST 19 (14-36) U/L ALT 14 (4-34) U/L Alkaline Phosphatase 106 (38-126) U/L Troponin I (0.000-0.034) ng/mL NT-Pro-B Natriuret Pep 333 pg/mL Total Protein 5.3 L (6.3-8.2) g/dL Albumin 2.8 L (3.5-5.0) g/dL Influenza Type A (PCR) (Not Detectd) Influenza Type B (PCR) (Not Detectd) RSV (PCR) (Not Detectd) SARS-CoV-2 (PCR) (Not Detectd) 02/26/23 02/26/23 02/26/23 Range/Units 11:57 11:57 11:57 WBC (3.8-10.6) k/uL RBC (3.80-5.40) m/uL Hgb (11.4-16.0) gm/dL Hct (34.0-46.0) % MCV (80.0-100.0) fL MCH (25.0-35.0) pg MCHC (31.0-37.0) g/dL RDW (11.5-15.5) % Plt Count (150-450) k/uL MPV Neutrophils % % Lymphocytes % % Monocytes % % Eosinophils % % Basophils % % Neutrophils # (1.3-7.7) k/uL Lymphocytes # (1.0-4.8) k/uL Monocytes # (0-1.0) k/uL Eosinophils # (0-0.7) k/uL Basophils # (0-0.2) k/uL PT (9.0-12.0) sec INR (<1.2) APTT (22.0-30.0) sec D-Dimer (<0.60) mg/L FEU Sodium (137-145) mmol/L Potassium (3.5-5.1) mmol/L Chloride (98-107) mmol/L Carbon Dioxide (22-30) mmol/L Anion Gap mmol/L BUN (7-17) mg/dL Creatinine (0.52-1.04) mg/dL Est GFR (CKD-EPI)AfAm (>60 ml/min/1.73 sqM) Est GFR (CKD-EPI)NonAf (>60 ml/min/1.73 sqM) Glucose (74-99) mg/dL Plasma Lactic Acid Sascha 1.0 (0.7-2.0) mmol/L Calcium (8.4-10.2) mg/dL Magnesium (1.6-2.3) mg/dL Total Bilirubin (0.2-1.3) mg/dL AST (14-36) U/L ALT (4-34) U/L Alkaline Phosphatase (38-126) U/L Troponin I <0.012 (0.000-0.034) ng/mL NT-Pro-B Natriuret Pep pg/mL Total Protein (6.3-8.2) g/dL Albumin (3.5-5.0) g/dL Influenza Type A (PCR) Not Detected (Not Detectd) Influenza Type B (PCR) Not Detected (Not Detectd) RSV (PCR) Not Detected (Not Detectd) SARS-CoV-2 (PCR) Not Detected (Not Detectd) - EKG Data -: EKG Interpreted by Me EKG Comments: 12-lead Electrocardiogram Interpretation Note EKG was reviewed and interpreted by myself. 12-lead ECG performed at 1124 is interpreted by me as revealing normal sinus rhythm at a rate of 75 beats per minute. Belle is normal. VA interval is 152 ms, QRS duration is 92 ms, QTc is 389 ms.. There were no ST or T wave abnormalities to suggest myocardial ischemia or injury. R wave progression across the precordium was satisfactory. By my interpretation this EKG is non-diagnostic for acute ischemia. Disposition Clinical Impression: COPD (chronic obstructive pulmonary disease), Pneumonia Disposition: ADMITTED IP TO THIS HOSP Condition: Stable Referrals: Yao Haywood MD [Primary Care Provider] - 1-2 days Time of Disposition: 14:32
--- NOTE | 2023-02-26 16:04 | P.GSCN ---
History of Present Illness Consult date: 02/26/23 Reason for Consult: Bloody drainage from Pleurx catheter Requesting physician: Calvin Bang History of present illness: This is an 82-year-old female patient who follows outpatient with Dr. Yao Haywood for primary care. 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 Ford on 12/21/2020, previous tobacco dependence, COPD with home oxygen use at 3 L nasal cannula, hypertension, hyperlipidemia, and DVT to the right upper extremity in 2015. The patient presented to [facility] emergency room with complaints of shortness of breath, pain to the right side of her chest extending into her right shoulder, and coughing up phlegm. She also states her Pleurx drainage has been bloody, she drained 400 mL bloody drainage this morning. She has called the surgery office in the last couple of weeks to discuss the drainage, Dr. Ford was made aware and expected drainage to continue. In the emergency room chest CTA demonstrated COPD, small right ple ural effusion which has decreased from prior, increased patchy airspace opacity in the right lower lobe and right middle lobe. She is currently on 6 L high flow nasal cannula with oxygen saturation in the low 90s. Lab work demonstrated WBC 9.3, creatinine 0.63, lactic acid 1.0, BNP 333, negative troponin, and covid/influenza A&B/RSV PCR negative. She was started on IV antibiotics and steroids and was admitted for evaluation and treatment with consultation placed to cardiothoracic surgery regarding Pleurx catheter drainage. Review of Systems Review of systems was completed and was negative except as noted - Cardiovascular Reports as per HPI, Reports chest pain, Reports shortness of breath - Respiratory Reports as per HPI, Reports cough with sputum Past Medical History Past Medical History: Atrial Flutter, Cancer, COPD, Deep Vein Thrombosis (DVT), Hyperlipidemia, Hypertension, Osteoarthritis (OA), Pneumonia, Renal Disease, Thyroid Disorder Additional Past Medical History / Comment(s): 2016 Small cell L lung cancer treated with chemoradiation therapy, recent right-sided pleural effusions with thoracentesis, home oxygen at 2L/NC ATC, dysphagia/ aspiration back in 2017 following her cancer radiation treatments, 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 History of Any Multi-Drug Resistant Organisms: None Reported Past Surgical History: Adenoidectomy, Appendectomy, Breast Surgery, Hyster ectomy, Tonsillectomy Additional Past Surgical History / Comment(s): Bronchoscopy/biopsy, thoracentesis, L pyeloplasty/JJ cath, L breast core bx x3-benign, EGD, colonoscopy/benign polypectomy. Right-sided Pleurx catheter placement Past Anesthesia/Blood Transfusion Reactions: Postoperative Nausea & Vomiting (PONV) Additional Past Anesthesia/Blood Transfusion Reaction / Comm: Pt has clausterphobia Past Psychological History: Anxiety, Bipolar, Depression Smoking Status: Former smoker Past Alcohol Use History: None Reported Past Drug Use History: None Reported - Past Family History Father Family Medical History: CVA/TIA Additional Family Medical History / Comment(s): Father of a cerebral hemorrhage at age 48yrs. Mother Family Medical History: Cancer Additional Family Medical History / Comment(s): Mother of lung cancer. Sister(s) Family Medical History: Cancer Additional Family Medical History / Comment(s): Sister of lung cancer Medications and Allergies Home Medications Medication Instructions Recorded Confirmed Type Albuterol Sulfate [Ventolin HFA] 2 puff INHALATION RT-Q4H PRN 09/10/20 02/26/23 History Atorvastatin [Lipitor] 20 mg PO HS 30 Days tab 02/14/21 02/26/23 Rx atenoloL [Tenormin] 50 mg PO DAILY 30 Days tab 02/14/21 02/26/23 Rx ARIPiprazole [Abilify] 2 mg PO DAILY 03/02/21 02/26/23 History Aspirin EC [Ecotrin Low Dose] 81 mg PO HS 02/26/23 02/26/23 History Divalproex Sodium 125 mg PO BID 02/26/23 02/26/23 History Furosemide [Lasix] 20 - 40 mg PO DAILY PRN 02/26/23 02/26/23 History Levothyroxine Sodium [Synthroid] 100 mcg PO DAILY 02/26/23 02/26/23 History Mirtazapine [Remeron] 7.5 mg PO HS 02/26/23 02/26/23 History Sertraline [Zoloft] 50 mg PO DAILY 02/26/23 02/26/23 History Allergies Allergy/AdvReac Type Severity Reaction Status Date / Time latex Allergy Swelling Verified 02/26/23 12:54 Surgical - Exam Vital Signs Temp Pulse Resp BP Pulse Ox 98.5 F 72 24 110/71 96 02/26/23 10:51 02/26/23 10:51 02/26/23 10:51 02/26/23 10:51 02/26/23 10:51 CONSTITUTIONAL: Awake and alert, cooperative, no acute distress EYES: Pupils equal, round, reactive to light, normal ocular movement ENT: Moist mucous membranes without oral lesions present NECK: No masses, no bruits, trachea midline RESPIRATORY: Lungs sounds diminished on the right. Respirations even, nonlabored. Currently on 6 L nasal cannula with oxygen saturation 91%. Strong cough. Right-sided Pleurx catheter present under clean dry dressing CARDIOVASCULAR: S1, S2 present. Regular rate and rhythm, sinus rhythm on telemetry. Palpable peripheral pulses bilaterally. GASTROINTESTINAL: Abdomen soft, nontender, nondistended without masses or organomegaly noted. There is no rebound or guarding present. Active bowel sounds present 4 quadrants. GENITOURINARY: Deferred INTEGUMENTARY: Skin is warm and dry NEUROLOGIC: Cranial nerves II through XII intact, normal coordination, no obvious motor or sensory deficits, speech is normal MUSKULOSKELETAL: Able to move all extremities, strength equal bilaterally, normal posture PSYCHIATRIC: Alert and oriented to person place and time, appropriate affect, intact judgment and insight Results - Labs 02/26/23 11:57 02/26/23 11:57 Abnormal Lab Results - Last 24 Hours (Table) 02/26/23 02/26/23 02/26/23 Range/Units 11:57 11:57 11:57 Neutrophils # 7.9 H (1.3-7.7) k/uL Lymphocytes # 0.2 L (1.0-4.8) k/uL D-Dimer 1.77 H (<0.60) mg/L FEU Carbon Dioxide 31 H (22-30) mmol/L Glucose 107 H (74-99) mg/dL Total Protein 5.3 L (6.3-8.2) g/dL Albumin 2.8 L (3.5-5.0) g/dL Diabetes panel 02/26/23 Range/Units 11:57 Sodium 138 (137-145) mmol/L Potassium 4.4 (3.5-5.1) mmol/L Chloride 102 (98-107) mmol/L Carbon Dioxide 31 H (22-30) mmol/L BUN 11 (7-17) mg/dL Creatinine 0.63 (0.52-1.04) mg/dL Glucose 107 H (74-99) mg/dL Calcium 8.6 (8.4-10.2) mg/dL AST 19 (14-36) U/L ALT 14 (4-34) U/L Alkaline Phosphatase 106 (38-126) U/L Total Protein 5.3 L (6.3-8.2) g/dL Albumin 2.8 L (3.5-5.0) g/dL Calcium panel 02/26/23 Range/Units 11:57 Calcium 8.6 (8.4-10.2) mg/dL Albumin 2.8 L (3.5-5.0) g/dL Pituitary panel 02/26/23 Range/Units 11:57 Sodium 138 (137-145) mmol/L Potassium 4.4 (3.5-5.1) mmol/L Chloride 102 (98-107) mmol/L Carbon Dioxide 31 H (22-30) mmol/L BUN 11 (7-17) mg/dL Creatinine 0.63 (0.52-1.04) mg/dL Glucose 107 H (74-99) mg/dL Calcium 8.6 (8.4-10.2) mg/dL Adrenal panel 02/26/23 Range/Units 11:57 Sodium 138 (137-145) mmol/L Potassium 4.4 (3.5-5.1) mmol/L Chloride 102 (98-107) mmol/L Carbon Dioxide 31 H (22-30) mmol/L BUN 11 (7-17) mg/dL Creatinine 0.63 (0.52-1.04) mg/dL Glucose 107 H (74-99) mg/dL Calcium 8.6 (8.4-10.2) mg/dL Total Bilirubin 0.3 (0.2-1.3) mg/dL AST 19 (14-36) U/L ALT 14 (4-34) U/L Alkaline Phosphatase 106 (38-126) U/L Total Protein 5.3 L (6.3-8.2) g/dL Albumin 2.8 L (3.5-5.0) g/dL - Imaging Chest x-ray: report reviewed, image reviewed CT scan - chest: report reviewed, image reviewed EKG: image reviewed Assessment and Plan Assessment: Right-sided pleural effusion, Pleurx catheter present Shortness of breath, right-sided chest pain Possible pneumonia History of 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 Ford on 12/21/2020 Previous tobacco dependence COPD with home oxygen use at 3 L nasal cannula Hypertension Hyperlipidemia DVT to the right upper extremity in 2016 Plan: The patient was seen and examined in the emergency room sitting up at the bedside in no acute distress. Chart/diagnostics reviewed. The patient's Pleurx catheter was drained for 100 mL bloody drainage, fluid to be sent for culture and cytology. The case of be discussed with cardiothoracic surgeon. Antibio tics per internal medicine service. Wean O2 as tolerated. Increase activity as tolerated. Medical management of other comorbidities per internal medicine service. More recommendations to follow. I have personally seen and examined the patient, performed the documentation and the assessment and plan as written. Number of minutes spent on the visit: 30. DILCIA Thompson
--- NOTE | 2023-02-26 16:36 | P.HPIM ---
History of Present Illness H&P Date: 02/26/23 Chief Complaint: dyspnea 82-year-old woman with a medical history of small cell lung cancer status post chemo and radiation 7 years ago who is in remission with recurrent right pleural effusion status post Pleurx paced 7 years ago, COPD with chronic hypoxemic respiratory failure requiring 3 L nasal cannula, hypertension, hyperlipidemia, history of DVT presented for evaluation of shortness of breath and right-sided chest pain. Patient says that she typically drains her fluid, but noticed the last several days it started to become bloody and output. She also notes that when she does strain her fluid causes pain in her right shoulder. She is also noticing increasing shortness of breath and increased oxygen requirement at home with low oxygen saturations in the mid 80s while on her home 3-4 L. Due to the conglomeration of the symptoms, patient decided to present to the emergency room for further evaluation. She denies fevers, reports chills. She denies nausea, vomiting. She reports chest pain with breathing. She denies palpitations, syncope, presyncope. She reports cough, but no production. She reports dyspnea. She denies abdominal pain, constipation, diarrhea, dysuria, dyschezia, numbness/weakness of extremity. In the emergency room, patient was afebrile, 109/67, heart rate 98, 91% on 6 L nasal cannula. CBC is unremarkable. Basic metabolic panel shows CO2 of 31, otherwise unremarkable. Liver function test showed low total albumin of 2.8, l ow total protein of 5.8. BNP was 333. Troponin is less than 0.012. Coags are unremarkable. D-dimer is 1.77. Influenza A, B, RSV, Covid were negative. Chest x-ray is rotated, shows complex right-sided pleural effusion with increased infiltrates in the right lower lobe. CT angiography was limited by motion artifact, but was negative for large central or definitive lobar branch pulmonary embolus, did show COPD with advanced emphysema and soft tissue encasement of the right hilum with contiguous capacity and volume loss along the medial right upper lobe, small right pleural effusion, increased patchy opacity in the right lower lobe and right middle lobe. EKG shows normal sinus rhythm, normal axis, no evidence of ischemia, low overall voltage in limb leads and precordial leads. Case was discussed the emergency room provider and decision was made to admit the patient to the hospital for further evaluation. All Systems reviewed and pertinent positives and negatives noted in HPI, all other symptoms are negative Gen: in no apparent distress, resting comfortably in bed Eyes: PERRL, no scleral injection or icterus HENT: normocephalic, atraumatic, good hearing acuity, moist mucous membranes Neck: no tracheal deviation, full range of motion Resp: Right sided crackles from low to mid chest, improved lung sounds on the left, no accessory muscle use CVS: good distal perfusion x 4, no pitting edema GI: soft, NTTP, ND, no hepatosplenomegaly : no suprapubic tenderness, no CVAT, crespo catheter not present MSK: no clubbing, no cyanosis, no noted contractures of extremities Skin: no noted rashes, petechiae; temperature of skin is appropriate Neuro: moving all extremities without signs of weakness, CN II-XII intact Psych: cooperative, euthymic mood, insight and judgment intact Labs and imaging as above Assessment: Acute on chronic hypoxemic respiratory failure with hypercarbia COPD exacerbation Right pleural effusion, sanguinous History of small cell lung cancer Hypertension Hyperlipidemia History of DVT Plan: Vital signs reviewed and noted in the HPI Lab work reviewed and noted in the HPI EKG and CXR are personally interpreted and noted in the HPI Case was discussed with the Emergency Room provider and decision was made to admit the patient for evaluation of sanguinous right pleural effusion, acute on chronic hypoxemic respiratory failure Patient was started on ceftriaxone, azithromycin Obtain pro-calcitonin Send pleural fluid for cytology, pleural fluid studies, this was discussed with CT surgery Appreciate the recommendations of CT surgery Consultation to pulmonology given advanced COPD with emphysema Consultation to hematology given history of small cell lung cancer and sanguinous right pleural effusion Nebulizers Repeat labs in the morning Patient is no code Past Medical History Past Medical History: Atrial Flutter, Cancer, COPD, Deep Vein Thrombosis (DVT), Hyperlipidemia, Hypertension, Osteoarthritis (OA), Pneumonia, Renal Disease, Thyroid Disorder Additional Past Medical History / Comment(s): 2016 Small cell L lung cancer treated with chemoradiation therapy, recent right-sided pleural effusions with thoracentesis, home oxygen at 2L/NC ATC, dysphagia/ aspiration back in 2017 following her cancer radiation treatments, 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 History of Any Multi-Drug Resistant Organisms: None Reported Past Surgical History: Adenoidectomy, Appendectomy, Breast Surgery, Hysterectomy, Tonsillectomy Additional Past Surgical History / Comment(s): Bronchoscopy/biopsy, thoracentes is, L pyeloplasty/JJ cath, L breast core bx x3-benign, EGD, colonoscopy/benign polypectomy. Right-sided Pleurx catheter placement Past Anesthesia/Blood Transfusion Reactions: Postoperative Nausea & Vomiting (PONV) Additional Past Anesthesia/Blood Transfusion Reaction / Comment(s): Pt has clausterphobia Past Psychological History: Anxiety, Bipolar, Depression Smoking Status: Former smoker Past Alcohol Use History: None Reported Past Drug Use History: None Reported - Past Family History Father Family Medical History: CVA/TIA Additional Family Medical History / Comment(s): Father of a cerebral hemorrhage at age 48yrs. Mother Family Medical History: Cancer Additional Family Medical History / Comment(s): Mother of lung cancer. Sister(s) Family Medical History: Cancer Additional Family Medical History / Comment(s): Sister of lung cancer Medications and Allergies Home Medications Medication Instructions Recorded Confirmed Type Albuterol Sulfate [Ventolin HFA] 2 puff INHALATION RT-Q4H PRN 09/10/20 02/26/23 History Atorvastatin [Lipitor] 20 mg PO HS 30 Days tab 02/14/21 02/26/23 Rx atenoloL [Tenormin] 50 mg PO DAILY 30 Days tab 02/14/21 02/26/23 Rx ARIPiprazole [Abilify] 2 mg PO DAILY 03/02/21 02/26/23 History Aspirin EC [Ecotrin Low Dose] 81 mg PO HS 02/26/23 02/26/23 History Divalproex Sodium 125 mg PO BID 02/26/23 02/26/23 History Furosemide [Lasix] 20 - 40 mg PO DAILY PRN 02/26/23 02/26/23 History Levothyroxine Sodium [Synthroid] 100 mcg PO DAILY 02/26/23 02/26/23 History Mirtazapine [Remeron] 7.5 mg PO HS 02/26/23 02/26/23 History Sertraline [Zoloft] 50 mg PO DAILY 02/26/23 02/26/23 History Allergies Allergy/AdvReac Type Severity Reaction Status Date / Time latex Allergy Swelling Verified 02/26/23 12:54 Physical Exam Osteopathic Statement: *. No significant issues noted on an osteopathic structural exam other than those noted in the History and Physical/Consult. Vitals: Vital Signs Temp Pulse Resp BP Pulse Ox 02/26/23 14:30 97.4 F L 98 20 109/67 91 L 02/26/23 12:26 74 02/26/23 12:18 74 02/26/23 11:57 74 15 02/26/23 10:51 98.5 F 72 24 110/71 96 Intake and Output 02/26/23 02/26/23 02/26/23 06:59 14:59 22:59 Other: Weight 66.678 kg Results CBC & Chem 7: 02/26/23 11:57 02/26/23 11:57 Labs: Abnormal Lab Results - Last 24 Hours (Table) 02/26/23 02/26/23 02/26/23 Range/Units 11:57 11:57 11:57 Neutrophils # 7.9 H (1.3-7.7) k/uL Lymphocytes # 0.2 L (1.0-4.8) k/uL D-Dimer 1.77 H (<0.60) mg/L FEU Carbon Dioxide 31 H (22-30) mmol/L Glucose 107 H (74-99) mg/dL Total Protein 5.3 L (6.3-8.2) g/dL Albumin 2.8 L (3.5-5.0) g/dL
[2023-02-26] MEDS ORDERED: DIVALPROEX 250 MG TABLET.DR PO SCH (21:00)
[2023-02-26] MEDS: ASPIRIN 81 MG PO SCH (21:48)
[2023-02-26] MEDS: MIRTAZAPINE 15 MG TAB PO SCH (21:48)
[2023-02-26] MEDS: ATORVASTATIN 20 MG TAB PO SCH (21:48)
[2023-02-26] MEDS: DIVALPROEX SPRINKLE 125 MG CAP.SPRINK PO SCH (21:49)
--- NOTE | 2023-02-27 02:59 | P.CNPUL ---
History of Present Illness Consult date: 02/27/23 Requesting physician: Jose Yen Reason for consult: COPD, pleural effusion Chief complaint: Shortness of breath and right-sided chest pain History of present illness: I am seeing this patient in consultation today 02/27/2023 for ongoing progressive shortness of breath over the past 10 days accompanied with bloody drainage from her Pleurx catheter. 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 She does follow with Dr. Lucio in the office. She also has history of hypertension, hyperlipidemia, hypothyroidism, atrial fibrillation, and right upper extremity DVT. Primary care provider is Dr. Yao Miller. The patient presented emergency department yesterday morning complaining of shortness of breath for the last 10 days. She states that she is also right-sided chest pain that radiates to her right shoulder, and bloody output out of her Pleurx catheter. The Pleurx catheter was inserted back in December 2020 for recurrent right-sided pleural effusion. She states that she normally drains approximately 500-800 ML's of serous fluid every other day from her Pleurx catheter. Over the past 10 days, however, she's had sanguinous output of about 400 ML's every other day. Patient denies any infectious symptoms such as cough, fever, chills, myalgias, hemoptysis. Patient did have a PET scan last week which showed no suspicious uptake suggesting metastatic disease. There was a small to moderate loculated right pleural fluid collection. Repeat chest CT on arrival to the emergency room did not demonstrate any pulmonary embolism. It did read demonstrates similar to slightly increased loculated areas of pleural effusion on the right. There was a collection along the posteriormedial right upper to mid lung that was particularly larger measuring 8.4 x 5.9 cm. There was increasing patchy airspace opacities within the right basilar lower lobe and right middle lobe. Pneumonia is within the differential. She is currently sitting up in bed, on 6 L/m nasal cannula, in no acute distress. CBC and BMP on arrival were unremarkable. Patient was negative for influenza, RSV, COVID-19. Troponin was less than 0.012. NT proBNP was low at 333. ECG shows no obvious acute ischemic changes. Patient has been started on empiric Rocephin and azithromycin. Blood and fluid body cultures are pending. Patient is currently afebrile. Vital signs are stable. Review of Systems REVIEW OF SYSTEMS: CONSTITUTIONAL: Denies any recent significant weight loss or weight gain. EYES: Denies change in vision. EARS, NOSE, MOUTH, THROAT: Denies headaches, denies sore throat. CARDIOVASCULAR: Denies chest palpitations, lightheadedness, syncopal episodes, lower extremity swelling, orthopnea. Admits chest pain as described in HPI RESPIRATORY: See HPI GASTROINTESTINAL: Denies change in appetite, abdominal pain, nausea and vomiting, or diarrhea GENITOURINARY: Denies hematuria, denies infections. MUSKULOSKELETAL: Denies pain, denies swelling. INTEGUMENTARY: Denies rash, denies eczema. NEUROLOGICAL: Denies recent memory loss, no recent seizure activity. PSYCHIATRIC: Denies anxiety, denies depression. 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 History of Any Multi-Drug Resistant Organisms: None Reported Past Surgical History: Adenoidectomy, Appendectomy, Breast Surgery, Hysterectomy, Tonsillectomy Additional Past Surgical History / Comment(s): Bronchoscopy/biopsy, thoracentesis, L pyeloplasty/JJ cath, L breast core bx x3-benign, EGD, colonoscopy/benign polypectomy. Right-sided Pleurx catheter placement Past Anesthesia/Blood Transfusion Reactions: Postoperative Nausea & Vomiting (PONV) Additional Past Anesthesia/Blood Transfusion Reaction / Comment(s): Pt has clausterphobia Past Psychological History: Anxiety, Bipolar, Depression Additional Psychological History / Comment(s): Pt resides with her spouse. She has home oxygen/nebulizer. She drives. She just finished with [facility]. Smoking Status: Former smoker Past Alcohol Use History: None Reported Additional Past Alcohol Use History / Comment(s): Pt quit smoking 2005, started smoking age 17, 1ppd. 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 Past Drug Use History: None Reported - Past Family History Father Family Medical History: CVA/TIA Additional Family Medical History / Comment(s): Father of a cerebral hemorr roverto at age 48yrs. Mother Family Medical History: Cancer Additional Family Medical History / Comment(s): Mother of lung cancer. Sister(s) Family Medical History: Cancer Additional Family Medical History / Comment(s): Sister of lung cancer Medications and Allergies Home Medications Medication Instructions Recorded Confirmed Type Albuterol Sulfate [Ventolin HFA] 2 puff INHALATION RT-Q4H PRN 09/10/20 02/26/23 History Atorvastatin [Lipitor] 20 mg PO HS 30 Days tab 02/14/21 02/26/23 Rx atenoloL [Tenormin] 50 mg PO DAILY 30 Days tab 02/14/21 02/26/23 Rx ARIPiprazole [Abilify] 2 mg PO DAILY 03/02/21 02/26/23 History Aspirin EC [Ecotrin Low Dose] 81 mg PO HS 02/26/23 02/26/23 History Divalproex Sodium 125 mg PO BID 02/26/23 02/26/23 History Furosemide [Lasix] 20 - 40 mg PO DAILY PRN 02/26/23 02/26/23 History Levothyroxine Sodium [Synthroid] 100 mcg PO DAILY 02/26/23 02/26/23 History Mirtazapine [Remeron] 7.5 mg PO HS 02/26/23 02/26/23 History Sertraline [Zoloft] 50 mg PO DAILY 02/26/23 02/26/23 History Allergies Allergy/AdvReac Type Severity Reaction Status Date / Time latex Allergy Swelling Verified 02/26/23 12:54 Physical Exam Vitals: Vital Signs Temp Pulse Pulse Resp BP BP Pulse Ox 02/26/23 20:00 98.0 F 95 19 111/68 93 L 02/26/23 19:21 97.5 F L 93 20 98/64 93 L 02/26/23 14:30 97.4 F L 98 20 109/67 91 L 02/26/23 12:26 74 02/26/23 12:18 74 02/26/23 11:57 74 15 02/26/23 10:51 98.5 F 72 24 110/71 96 Intake and Output 02/26/23 02/26/23 02/27/23 14:59 22:59 06:59 Other: Weight 66.678 kg 66.678 kg GENERAL EXAM: Alert, 82-year-old white female, comfortable in no apparent distress. HEAD: Normocephalic and atraumatic EYES: Normal reaction of pupils, equal size. NOSE: Clear with pink turbinates. THROAT: No erythema or exudates. NECK: No masses, no JVD. CHEST: No chest wall deformity. Right Pleurx catheter covered with occlusive dressing. LUNGS: Equal air entry with inspiratory crackles heard at the right lower base. No wheezes, rhonchi. On 6 L/m nasal cannula No conversational dyspnea or accessory muscle use.. CVS: S1 and S2 normal with no audible murmur, regular rhythm. No extra heart sounds ABDOMEN: No hepatosplenomegaly, active bowel sounds, no guarding or rigidity. SPINE: No scoliosis or deformity SKIN: No rashes CENTRAL NERVOUS SYSTEM: No focal deficits, tone is normal in all 4 extremities. EXTREMITIES: There is no peripheral edema, clubbing, or cyanosis. Peripheral p ulses are intact. Results - Laboratory Findings CBC and BMP: 02/26/23 11:57 02/26/23 11:57 PT/INR, D-dimer PT 10.3 sec (9.0-12.0) 02/26/23 11:57 INR 1.0 (<1.2) 02/26/23 11:57 D-Dimer 1.77 mg/L FEU (<0.60) H 02/26/23 11:57 Abnormal lab findings: Abnormal Labs 02/26/23 02/26/23 02/26/23 11:57 11:57 11:57 Neutrophils # 7.9 H Lymphocytes # 0.2 L D-Dimer 1.77 H Carbon Dioxide 31 H Glucose 107 H Total Protein 5.3 L Albumin 2.8 L - Diagnostic Findings Chest x-ray: image reviewed CT scan - chest: image reviewed Assessment and Plan Assessment: Recurrent right-sided pleural effusions status post Pleurx catheter insertion Dec, 2020. In the past, the fluid has been cytologically negative for me tastasis. Patient has had sanguinous output of around 400 ML's every 48 hours for the past 10 days. Acute on chronic hypoxemic respiratory failure, secondary to above and possibly community acquired pneumonia. Chest CTA on arrival demonstrates similar to slightly increased loculated areas of pleural effusion on the right. There was a collection along the posteriormedial right upper to mid lung that was particularly larger measuring 8.4 x 5.9 cm. There was increasing patchy airspace opacities within the right basilar lower lobe and right middle lobe concerning for pneumonia History of small cell lung cancer of the left lung status post chemoradiation. PET scan performed last week showed no suspicious uptake suggesting metastatic disease. There was a small to moderate loculated right pleural fluid collection. Acute COPD exacerbation Benign essential hypertension Hyperlipidemia Hypothyroidism Remote history of right upper extremity DVT, not anticoagulated Plan: Patient's medications, labs, imaging reviewed Continue supplemental oxygen We will start the patient on appropriate medications for COPD including DuoNeb's, Symbicort, and IV Solu-Medrol Empirically covered for community acquired pneumonia with a combination of azithromycin and Rocephin. In the emergency room, the patient's Pleurx catheter was drained for approximately 100 ML's of sanguinous drainage Body fluid cultures and cytology are pending Blood cultures are pending Procalcitonin level pending Repeat chest x-ray in the morning Cardiothoracic service is following We will continue to follow I have personally seen and examined the patient, performed the documentation and the assessment and plan as written. Number of minutes spent on the visit:20 Time with Patient: Greater than 30
[2023-02-27] MEDS: methylPREDNISolone SOD SUCCI 125 MG/2 ML VIAL IV SCH ×4 (03:29→20:20)
[2023-02-27 04:54] LABS: Appearance,BF Bloody (Clear)
[2023-02-27 05:52] LABS: Amylase, Fluid Source Pleural Fluid; Amylase,Body Fluid 21 U/L; Glucose, BF Source Pleural Fluid; Glucose, Body Fluid 9 mg/dL; LDH, Body Fluid Source Pleural Fluid; T. Protein, Body Fluid Source Pleural Fluid; Total Protein, Body Fluid 3010 mg/dL
[2023-02-27] MEDS: LEVOTHYROXINE 100 MCG TAB PO SCH (06:09)
[2023-02-27] MEDS: IPRATROPIUM-ALBUTEROL 3 ML NEB INHALATION SCH ×4 (08:17→19:17)
[2023-02-27] MEDS: SYMBICORT 160-4.5 MCG INHALER INHALATION SCH ×2 (08:17→19:17)
[2023-02-27] MEDS ORDERED: methylPREDNISolone SOD SUCCI 40 MG/ML 1 ML VIAL IV SCH (09:00)
[2023-02-27] MEDS: atenoloL 50 MG TAB PO SCH (09:53)
[2023-02-27] MEDS: SERTRALINE 50 MG TAB PO SCH (09:53)
[2023-02-27] MEDS: DIVALPROEX SPRINKLE 125 MG CAP.SPRINK PO SCH ×2 (09:53→20:19)
[2023-02-27] MEDS: ARIPiprazole 2 MG TAB PO SCH (10:11)
--- NOTE | 2023-02-27 10:13 | XR ---
EXAMINATION TYPE: XR chest 1V portable DATE OF EXAM: 02/27/2023 Comparison: 02/26/2023 Clinical History: 82-year-old female pleural effusion Findings: Right heart margin obscured by adjacent pleural parenchymal opacity. Areas of loculated pleural effus ion at the right mid and lower lung with underlying extensive airspace opacity persists without signi ficant change. Background hyperinflation/COPD. Impression: Overall similar appearance to the loculated areas of pleural effusion right mid and lower lung along with a underlying airspace disease. Background COPD.
[2023-02-27 10:33] LABS: Albumin, Fluid Source Pleural Fluid
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
--- NOTE | 2023-02-27 13:13 | P.PN ---
Subjective Progress Note Date: 02/27/23 Principal diagnosis: Right pleural Pleurx catheter with bloody drainage. 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 Ford on 12/21/2020, previous tobacco dependence, COPD with home oxygen use at 3 L nasal cannula, hypertension, hyperlipidemia, and DVT to the right upper extremity in 2016. The patient was seen and examined in follow-up today 02/27/2023 at her bedside on the fourth floor medical surgical unit. She is up ambulating in her room, denies any complaints of pain or shortness of breath at this time. Oxygen saturations are 96% on 3 L nasal cannula which has improved since seeing her in the emergency department. Yesterday her right Pleurx catheter was drained for 200 mL of thin bloody drainage, which the patient reports is a new occurrence over the last several drainages at home. The patient underwent a recent PET/computed tomography scan on 02/21/2023 as an outpatient which showed no suspicious uptake to suggest metastatic disease and a loculated right pleural effusion with drainage catheter present. The patient reports that she feels improved today from yesterday. She is currently receiving Solu-Medrol 60 mg IV every 6 hours started by pulmonary/critical care medicine and she also received Rocephin and Zithromax in the emergency department. She is currently not receiving any IV antibiotics. The patient has been afebrile the last 24 hours. Objective - Vital Signs Vital signs: Vital Signs Temp 98.1 F 02/27/23 07:21 Pulse 70 02/27/23 11:19 Resp 18 02/27/23 08:45 BP 104/66 02/27/23 07:21 Pulse Ox 96 02/27/23 08:19 FiO2 Intake & Output 02/26/23 02/27/23 02/27/23 18:59 06:59 18:59 Weight 66.678 kg Other: # Voids 2 - Exam CONSTITUTIONAL: Appears comfortable, cooperative, no acute distress. RESPIRATORY: Lungs sounds with few scattered crackles throughout, diminished to her bilateral bases right greater than left.. Respirations symmetrical, nonlabored. Currently on 3 L nasal cannula with oxygen saturation 100%. Strong cough. CARDIOVASCULAR: S1, S2 present. Regular rate and rhythm, sinus rhythm on telemetry. Palpable peripheral pulses bilaterally. No edema present. No calf pain or tenderness noted. GASTROINTESTINAL: Abdomen soft, nontender, nondistended. Active bowel sounds present 4 quadrants. Tolerating diet. GENITOURINARY: Continues to void. INTEGUMENTARY: Skin is warm and dry with evidence of good perfusion. Right chest Pleurx catheter in place, dressing clean, dry and intact. NEUROLOGIC: Cranial nerves II through XII intact. No focal deficits. MUSKULOSKELETAL: Able to move all extremities, strength equal bilaterally, gait normal. PSYCHIATRIC: Alert and oriented to person place and time, appropriate affect, intact judgment and insight. - Labs CBC & Chem 7: 02/26/23 11:57 02/26/23 11:57 Labs: Abnormal Lab Results - Last 24 Hours (Table) 02/26/23 02/26/23 02/26/23 Range/Units 11:57 11:57 11:57 Neutrophils # 7.9 H (1.3-7.7) k/uL Lymphocytes # 0.2 L (1.0-4.8) k/uL D-Dimer 1.77 H (<0.60) mg/L FEU Carbon Dioxide 31 H (22-30) mmol/L Glucose 107 H (74-99) mg/dL Total Protein 5.3 L (6.3-8.2) g/dL Albumin 2.8 L (3.5-5.0) g/dL Fluid Appearance (Clear) 02/26/23 Range/Units 16:49 Neutrophils # (1.3-7.7) k/uL Lymphocytes # (1.0-4.8) k/uL D-Dimer (<0.60) mg/L FEU Carbon Dioxide (22-30) mmol/L Glucose (74-99) mg/dL Total Protein (6.3-8.2) g/dL Albumin (3.5-5.0) g/dL Fluid Appearance Bloody A (Clear) Assessment and Plan Assessment: Right-sided pleural effusion, Pleurx catheter present Shortness of breath, right-sided chest pain Possible pneumonia History of small cell lung cancer in the left lung status post chemo and radiat ion, recent PET/CT scan completed on 02/23/2023 showed no suspicious uptake to suggest metastatic disease Recurrent right-sided pleural effusion status post right Pleurx catheter placement by Dr. Ford on 12/21/2020 Previous tobacco dependence COPD with home oxygen use at 3 L nasal cannula Hypertension Hyperlipidemia DVT to the right upper extremity in 2016 Plan: Continue to drain Pleurx catheter every other day and when necessary, shortness of breath. Increase activity as tolerated. Out of bed for all meals. Follow-up cytology results of pleural fluid sent yesterday 02/26/2023. Medical management and other comorbidities per primary care service. We will continue to follow the patient on an as-needed basis, please call for any further questions regarding the Pleurx catheter. Time with Patient: Less than 30
[2023-02-27 14:24] LABS: Basophils # (A) 0.01 X 10*3/uL (0.00-0.10); Basophils % (A) 0.1 %; Eosinophils # (A) 0.01 X 10*3/uL (0.04-0.35); Eosinophils % (A) 0.1 %; HCT 38.9 % (37.2-46.3); Lymphocytes % (A) 1.8 %; MCH 30.1 pg (27.0-32.0); MCHC 30.8 d/dL (32.0-37.0); MCV 97.5 FL (80.0-97.0); Mean Platelet Volume 9.2 FL (9.5-12.2); Monocytes # (A) 0.15 X 10*3/uL (0.20-1.00); Monocytes % (A) 1.3 %; NRBC Per 100 WBC 0 X 10*3/uL (0.00-0.01); Neutrophils # (A) 10.79 X 10*3/uL (1.80-7.70); Neutrophils % (A) 96.2 %; Platelet Count 216 X 10*3/uL (140-440); RBC 3.99 X 10*6/uL (4.10-5.20); RDW 12.4 % (11.5-14.5); WBC 11.22 X 10*3/uL (4.50-10.00)
--- NOTE | 2023-02-27 14:27 | P.PN ---
Subjective Progress Note Date: 02/27/23 No new complaints. Pt feels dyspnea is much better. Gen: in no apparent distress, resting comfortably in bed Eyes: PERRL, no scleral injection or icterus HENT: normocephalic, atraumatic, good hearing acuity, moist mucous membranes Neck: no tracheal deviation, full range of motion Resp: Right sided crackles from low to mid chest, improved lung sounds on the left, no accessory muscle use CVS: good distal perfusion x 4, no pitting edema GI: soft, NTTP, ND, no hepatosplenomegaly : no suprapubic tenderness, no CVAT, crespo catheter not present MSK: no clubbing, no cyanosis, no noted contractures of extremities Skin: no noted rashes, petechiae; temperature of skin is appropriate Neuro: moving all extremities without signs of weakness, CN II-XII intact Psych: cooperative, euthymic mood, insight and judgment intact Labs and imaging as above Assessment: Acute on chronic hypoxemic respiratory failure with hypercarbia COPD exacerbation Right pleural effusion, sanguinous History of small cell lung cancer Hypertension Hyperlipidemia History of DVT Plan: Pt is afebrile, 104/66, HR 73, 93% on 6L NC WBC 11.2 Pleural fluid is exudative: LDH 649, TP 3010, bloody with [id number] RBCs Cased discussed with oncology, they reviewed PET/CT, do not think loculations are related to recurrence of malignancy but are post-radiation related changes, discussed with CT surgery possible of intervention on loculations, they will discuss with team and decide Continue ceftriaxone, azithromycin Obtain pro-calcitonin Send pleural fluid for cytology, pleural fluid studies, this was discussed with CT surgery Appreciate the recommendations of CT surgery Consultation to pulmonology given advanced COPD with emphysema Consultation to hematology given history of small cell lung cancer and sanguinous right pleural effusion Nebulizers Repeat labs in the morning Patient is no code Objective - Vital Signs Vital signs: Vital Signs Temp 98.1 F 02/27/23 07:21 Pulse 70 02/27/23 11:19 Resp 18 02/27/23 08:45 BP 104/66 02/27/23 07:21 Pulse Ox 96 02/27/23 08:19 FiO2 Intake & Output 02/26/23 02/27/23 02/27/23 18:59 06:59 18:59 Weight 66.678 kg Other: # Voids 2 - Labs CBC & Chem 7: 02/26/23 11:57 02/26/23 11:57 Labs: Abnormal Lab Results - Last 24 Hours (Table) 02/26/23 Range/Units 16:49 Fluid Appearance Bloody A (Clear)
[2023-02-27 15:05] LABS: ALT 13 U/L (8-44); AST 15 U/L (13-35); Alkaline Phosphatase 94 U/L (41-126); BUN/Creat Ratio 20.33 Ratio (12.00-20.00); Bilirubin, Conjugated <0.20 mg/dL (0.20-0.40); Blood Urea Nitrogen 12.2 mg/dL (9.0-27.0); Calcium 8.9 mg/dL (8.7-10.3); Carbon Dioxide 27.1 mmol/L (21.6-31.8); Chloride 106 mmol/L (96-109); Glucose 138 mg/dL (70-110); Magnesium 2.3 mg/dL (1.5-2.4); Potassium 4.6 mmol/L (3.5-5.5); Sodium 144 mmol/L (135-145); Total Bilirubin <0.2 mg/dL (0.3-1.2)
[2023-02-27 15:18] LABS: LDH 159 U/L (120-246)
[2023-02-27] MEDS ORDERED: AZITHROMYCIN 500 MG in SODIUM CHLORIDE 0.9% 250 ML IVPB SCH (16:00)
[2023-02-27] MEDS: ASPIRIN 81 MG PO SCH (20:19)
[2023-02-27] MEDS: MIRTAZAPINE 15 MG TAB PO SCH (20:19)
[2023-02-27] MEDS: ATORVASTATIN 20 MG TAB PO SCH (20:20)
[2023-02-28] MEDS: methylPREDNISolone SOD SUCCI 125 MG/2 ML VIAL IV SCH ×4 (03:00→20:55)
[2023-02-28] MEDS: LEVOTHYROXINE 100 MCG TAB PO SCH (06:04)
[2023-02-28] MEDS: SYMBICORT 160-4.5 MCG INHALER INHALATION SCH ×2 (08:56→19:34)
[2023-02-28] MEDS: IPRATROPIUM-ALBUTEROL 3 ML NEB INHALATION SCH ×4 (08:56→19:34)
[2023-02-28] MEDS: SERTRALINE 50 MG TAB PO SCH (10:24)
[2023-02-28] MEDS: atenoloL 50 MG TAB PO SCH (10:24)
[2023-02-28] MEDS: DIVALPROEX SPRINKLE 125 MG CAP.SPRINK PO SCH ×2 (10:25→20:56)
[2023-02-28] MEDS: ARIPiprazole 2 MG TAB PO SCH (10:25)
[2023-02-28] MEDS ORDERED: VANCOMYCIN IV PER PHARMACY 1 EACH MISC MISCELLANE PRN (10:33)
--- NOTE | 2023-02-28 11:56 | P.PN ---
Subjective Progress Note Date: 02/28/23 Principal diagnosis: Shortness of breath. I am seeing this patient in consultation today 02/27/2023 for ongoing progressive shortness of breath over the past 10 days accompanied with bloody drainage from her Pleurx catheter. 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 She does follow with Dr. Lucio in the office. She also has history of hypertension, hyperlipidemia, hypothyroidism, atrial fibrillation, and right upper extremity DVT. Primary care provider is Dr. Yao Miller. The patient presented emergency department yesterday morning complaining of shortness of breath for the last 10 days. She states that she is also right-sided chest pain that radiates to her right shoulder, and bloody output out of her Pleurx catheter. The Pleurx catheter was inserted back in December 2020 for recurrent right-sided pleural effusion. She states that she normally drains approximately 500-800 ML's of serous fluid every other day from her Pleurx catheter. Over the past 10 days, however, she's had sanguinous output of about 400 ML's every other day. Patient denies any infectious symptoms such as cough, fever, chills, myalgias, hemoptysis. Patient did have a PET scan last week which showed no suspicious uptake suggesting metastatic disease. There was a small to moderate loculated right pleural fluid collection. Repeat chest CT on arrival to the emergency room did not demonstrate any pulmonary embolism. It did read demonstrates similar to slightly increased loculated areas of pleural effusion on the right. There was a collection along the posteriormedial right upper to mid lung that was particularly larger measuring 8.4 x 5.9 cm. There was increasing patchy airspace opacities within the right basilar lower lobe and right middle lobe. Pneumonia is within the differential. She is currently sitting up in bed, on 6 L/m nasal cannula, in no acute distress. CBC and BMP on arrival were unremarkab le. Patient was negative for influenza, RSV, COVID-19. Troponin was less than 0.012. NT proBNP was low at 333. ECG shows no obvious acute ischemic changes. Patient has been started on empiric Rocephin and azithromycin. Blood and fluid body cultures are pending. Patient is currently afebrile. Vital signs are stable. Progress note dated 02/28/2023. 82-year-old female who was seen in consultation yesterday. The patient has a Pleurx catheter in place, as she has a history of small cell carcinoma of the lung. The patient is status post chemoradiation, with a recurrent right-sided pleural effusion and Pleurx catheter placement. Currently she feels better. She's currently on 3 L of oxygen. She's not receiving any IV fluids. No new labs today. Labs from yesterday, have been reviewed. Objective - Vital Signs Vital signs: Vital Signs Temp 97.9 F 02/28/23 07:14 Pulse 80 02/28/23 09:04 Resp 16 02/28/23 07:14 BP 119/66 02/28/23 07:14 Pulse Ox 93 L 02/28/23 08:58 FiO2 Intake & Output 02/27/23 02/28/23 02/28/23 18:59 06:59 18:59 Other: # Voids 4 1 - Exam No acute distress, oriented 3. Currently on 3 L of oxygen. Saturations are 95%. HEENT examination is grossly unremarkable. Neck supple. Full range of motion. No adenopathy thyromegaly or neck vein distention. Cardiovascular examination reveals regular rhythm rate. S1-S2 normal. No S3 or S4. No discernible murmur noted. Heart rate 80 bpm. Lungs reveal scattered bilateral breath sounds. Occasional rhonchi are noted. No wheezes. No crackles. 3 L saturation is in the mid 90s. Abdomen soft bowel sounds are heard. No masses or tenderness. Extremities are intact. No cyanosis clubbing or edema. Skin is without rash or lesion. Neurologic examination is brief but nonfocal. - Labs CBC & Chem 7: 02/27/23 07:25 02/27/23 07:25 Labs: Abnormal Lab Results - Last 24 Hours (Table) 02/27/23 02/27/23 Range/Units 07: 07:25 WBC 11.22 H (4.50-10.00) X 10*3/uL RBC 3.99 L (4.10-5.20) X 10*6/uL MCV 97.5 H (80.0-97.0) FL MCHC 30.8 L (32.0-37.0) d/dL MPV 9.2 L (9.5-12.2) FL Neutrophils # 10.79 H (1.80-7.70) X 10*3/uL Lymphocytes # 0.20 L (0.90-5.00) X 10*3/uL Monocytes # 0.15 L (0.20-1.00) X 10*3/uL Eosinophils # 0.01 L (0.04-0.35) X 10*3/uL BUN/Creatinine Ratio 20.33 H (12.00-20.00) Ratio Glucose 138 H (70-110) mg/dL Total Bilirubin <0.2 L (0.3-1.2) mg/dL C-Reactive Protein 5.00 H (0.00-0.80) mg/dL Total Protein 5.0 L (6.2-8.2) d/dL Albumin 3.0 L (3.8-4.9) d/dL Albumin/Globulin Ratio 1.50 L (1.60-3.17) Ratio Microbiology - Last 24 Hours (Table) 02/26/23 17:05 Blood Culture Gram Stain - Preliminary Blood 02/26/23 16:45 Blood Culture Gram Stain - Preliminary Blood Blood Culture - Preliminary 02/26/23 16:49 Gram Stain - Preliminary Pleural Fluid Assessment and Plan Assessment: Recurrent right-sided pleural effusions status post Pleurx catheter insertion Dec, 2020. In the past, the fluid has been cytologically negative for metastasis. Patient has had sanguinous output of around 400 ML's every 48 hours for the past 10 days. Acute on chronic hypoxemic respiratory failure, secondary to above and possibly community acquired pneumonia. Chest CTA on arrival demonstrates similar to slightly increased loculated areas of pleural effusion on the right. There was a collection along the posteriormedial right upper to mid lung that was par ticularly larger measuring 8.4 x 5.9 cm. There was increasing patchy airspace opacities within the right basilar lower lobe and right middle lobe concerning for pneumonia. 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 PET scan performed last week showed no suspicious uptake suggesting metastatic disease. There was a small to moderate loculated right pleural fluid collection. Acute COPD exacerbation. Benign essential hypertension. Hyperlipidemia. Hypothyroidism. Remote history of right upper extremity DVT, not anticoagulated. Plan: Plan dated 02/28/2023. The patient remains on Symbicort, updrafts with albuterol and ipratropium bromide, and Solu-Medrol. Clinically, the patient is feeling better. The patient is on vancomycin. Microbiology is currently negative, and pro- calcitonin level was in the normal range. The antibiotics should be discontinued or de-escalated. Clinically, the patient's doing better, and feels better. Labs, x-rays, medications are reviewed. Time with Patient: Less than 30
[2023-02-28] MEDS: VANCOMYCIN 1,250 MG in SODIUM CHLORIDE 0.9% 250 ML IVPB SCH (13:19)
--- NOTE | 2023-02-28 14:03 | P.PN ---
Subjective Progress Note Date: 02/28/23 No new complaints. Pt feels dyspnea is much better. BCx growing staph epi in 2/2 bottles, discussed with pharmacy and ID, will obtain new bcx and start vanco Gen: in no apparent distress, resting comfortably in bed Eyes: PERRL, no scleral injection or icterus HENT: normocephalic, atraumatic, good hearing acuity, moist mucous membranes Neck: no tracheal deviation, full range of motion Resp: Right sided crackles from low to mid chest, improved lung sounds on the left, no accessory muscle use CVS: good distal perfusion x 4, no pitting edema GI: soft, NTTP, ND, no hepatosplenomegaly : no suprapubic tenderness, no CVAT, crespo catheter not present MSK: no clubbing, no cyanosis, no noted contractures of extremities Skin: no noted rashes, petechiae; temperature of skin is appropriate Neuro: moving all extremities without signs of weakness, CN II-XII intact Psych: cooperative, euthymic mood, insight and judgment intact Labs and imaging as above Assessment: Acute on chronic hypoxemic respiratory failure with hypercarbia COPD exacerbation Right pleural effusion, sanguinous History of small cell lung cancer Hypertension Hyperlipidemia History of DVT Plan: Pt is afebrile, 104/66, HR 73, 93% on 6L NC WBC 11.2 Pleural fluid is exudative: LDH 649, TP 3010, bloody with [id number] RBCs See above re: my discussion with ID and pharmacy Start vancomycin CT surgery - no acute intervention at this time Nebulizers Repeat labs in the morning Patient is no code Objective - Vital Signs Vital signs: Vital Signs Temp 97.9 F 02/28/23 07:14 Pulse 80 02/28/23 12:40 Resp 16 02/28/23 07:14 BP 119/66 02/28/23 07:14 Pulse Ox 93 L 02/28/23 08:58 FiO2 Intake & Output 02/27/23 02/28/23 02/28/23 18:59 06:59 18:59 Output Total 200 Balance -200 Output: Chest Tube Drainage 200 Pleural Catheter Right 200 Anterior Chest Other: # Voids 4 1 - Labs CBC & Chem 7: 02/27/23 07:25 02/27/23 07:25 Labs: Abnormal Lab Results - Last 24 Hours (Table) 02/27/23 02/27/23 Range/Units 07:25 07:25 WBC 11.22 H (4.50-10.00) X 10*3/uL RBC 3.99 L (4.10-5.20) X 10*6/uL MCV 97.5 H (80.0-97.0) FL MCHC 30.8 L (32.0-37.0) d/dL MPV 9.2 L (9.5-12.2) FL Neutrophils # 10.79 H (1.80-7.70) X 10*3/uL Lymphocytes # 0.20 L (0.90-5.00) X 10*3/uL Monocytes # 0.15 L (0.20-1.00) X 10*3/uL Eosinophils # 0.01 L (0.04-0.35) X 10*3/uL BUN/Creatinine Ratio 20.33 H (12.00-20.00) Ratio Glucose 138 H (70-110) mg/dL Total Bilirubin <0.2 L (0.3-1.2) mg/dL C-Reactive Protein 5.00 H (0.00-0.80) mg/dL Total Protein 5.0 L (6.2-8.2) d/dL Albumin 3.0 L (3.8-4.9) d/dL Albumin/Globulin Ratio 1.50 L (1.60-3.17) Ratio Microbiology - Last 24 Hours (Table) 02/26/23 17:05 Blood Culture Gram Stain - Preliminary Blood 02/26/23 16:45 Blood Culture Gram Stain - Preliminary Blood Blood Culture - Preliminary 02/26/23 16:49 Gram Stain - Preliminary Pleural Fluid
--- NOTE | 2023-02-28 14:22 | P.PN ---
Subjective Progress Note Date: 02/28/23 Principal diagnosis: hx NSCLC At todays follow-up patient is resting comfortably in bed. Patient reports improvement in symptoms but is still having some shortness of breath. SPO2 93% on 3 L. Patient afebrile. Continues on vancomycin. Objective - Vital Signs Vital signs: Vital Signs Temp 97.9 F 02/28/23 07:14 Pulse 80 02/28/23 12:40 Resp 16 02/28/23 07:14 BP 119/66 02/28/23 07:14 Pulse Ox 93 L 02/28/23 08:58 FiO2 Intake & Output 02/27/23 02/28/23 02/28/23 18:59 06:59 18:59 Output Total 200 Balance -200 Output: Chest Tube Drainage 200 Pleural Catheter Right 200 Anterior Chest Other: # Voids 4 1 - Constitutional General appearance: Present: average body habitus, no acute distress - EENT Eyes: Present: anicteric sclerae, EOMI ENT: Present: hearing grossly normal - Respiratory Details: breathing is even and unlabored - Cardiovascular Details: skin warm and dry - Integumentary Integumentary: Absent: cyanotic, jaundiced - Neurologic Neurologic Comment(s): grossly intact - Musculoskeletal Musculoskeletal: Present: strength equal bilaterally - Psychiatric Psychiatric: Present: A&O x's 3, appropriate affect, intact judgment & insight - Labs CBC & Chem 7: 02/27/23 07:25 02/27/23 07:25 Labs: Abnormal Lab Results - Last 24 Hours (Table) 02/27/23 02/27/23 Range/Units 07:25 07:25 WBC 11.22 H (4.50-10.00) X 10*3/uL RBC 3.99 L (4.10-5.20) X 10*6/uL MCV 97.5 H (80.0-97.0) FL MCHC 30.8 L (32.0-37.0) d/dL MPV 9.2 L (9.5-12.2) FL Neutrophils # 10.79 H (1.80-7.70) X 10*3/uL Lymphocytes # 0.20 L (0.90-5.00) X 10*3/uL Monocytes # 0.15 L (0.20-1.00) X 10*3/uL Eosinophils # 0.01 L (0.04-0.35) X 10*3/uL BUN/Creatinine Ratio 20.33 H (12.00-20.00) Ratio Glucose 138 H (70-110) mg/dL Total Bilirubin <0.2 L (0.3-1.2) mg/dL C-Reactive Protein 5.00 H (0.00-0.80) mg/dL Total Protein 5.0 L (6.2-8.2) d/dL Albumin 3.0 L (3.8-4.9) d/dL Albumin/Globulin Ratio 1.50 L (1.60-3.17) Ratio Microbiology - Last 24 Hours (Table) 02/26/23 17:05 Blood Culture Gram Stain - Preliminary Blood 02/26/23 16:45 Blood Culture Gram Stain - Preliminary Blood Blood Culture - Preliminary 02/26/23 16:49 Gram Stain - Preliminary Pleural Fluid Assessment and Plan (1) Non-small cell lung cancer (NSCLC) Current Visit: Yes Status: Acute Priority: Medium Code(s): C34.90 - MALIGNANT NEOPLASM OF UNSP PART OF UNSP BRONCHUS OR LUNG SNOMED Code(s): 263399871 (2) COPD (chronic obstructive pulmonary disease) Current Visit: Yes Status: Acute Priority: High Code(s): J44.9 - CHRONIC OBSTRUCTIVE PULMONARY DISEASE, UNSPECIFIED SNOMED Code(s): 66116464 (3) Pneumonia Current Visit: Yes Status: Acute Priority: High Code(s): J18.9 - PNEUMONIA, UNSPECIFIED ORGANISM SNOMED Code(s): 738570630 Plan: NSCLC: -Completed concurrent chemoradiation on 04/09/2016 and completed XRT on 04/15/2016. She has been in observation since with no recurrence of disease. PET CT on 02/21/23 revealed no suspicious uptake to suggest metastatic disease. And a loculated right pleural fluid. -Pleurx catheter in place. Patient has been evaluated by cardiothoracic surgery and pleurx was drained with 100 cc of bloody drainage removed. Cytology was sent, results pending. -Loculations are felt to be reactive from previous chemo/RT, not disease progression, as PET CT on 02/21/23 revealed no suspicious uptake. Cardiothoracic surgery following and plan for every other day pleurx draining. Pneumonia/COPD: -Chest x-ray showed background COPD changes with right mid to lower lung patchy consolidation with small right pleural effusion. Patient was initially treated with azithromycin and Rocephin. RSV and influenza and COVID negative. Patient is afebrile, SPO2 93% on 3 L. -Pulm following Bacteremia: -Blood culture positive for gram positive cocci in clusters. Pt on vancomycin -ID following attests: I performed H&P and developed impression and plan of care for patient, discussed with dictator. I agree with dictated note, documented as a scribe
[2023-02-28] MEDS: ASPIRIN 81 MG PO SCH (20:56)
[2023-02-28] MEDS: MIRTAZAPINE 15 MG TAB PO SCH (20:56)
[2023-02-28] MEDS: ATORVASTATIN 20 MG TAB PO SCH (20:56)
--- NOTE | 2023-02-28 22:23 | P.CONS ---
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 several years ago patient did have a recurrent right effusion requiring Pleurx catheter placement also history of hypertension hyperlipidemia COPD presenting to the hospital 3 days ago for evaluation of increasing shortness of breath and increased requirement of supplemental oxygen patient apparently was noticed to have some bloodstained pleural fluid on drainage for the patient has been admitted to the hospital for further work-up and has been evaluated by pulmonary and CT surgery services patient on presentation to the hospital was afebrile and no fever has been recorded subsequently patient was not tachycardic hypotensive hypoxic requiring supplemental oxygen patient did have a normal white count initially did have a slight elevated white count 11.2 yesterday kidney function has been normal liver exams are normal did have a normal procalcitonin pleural fluid obtained on 726 which was bloody did have a [id number] RBC and 283 WBC pleural fluid culture currently pending the patient did have blood cultures drawn which are currently positive with staph epi patient was started on vancomycin infectious disease was consulted for further management of antibiotic therapy, patient currently denies having any fever or any chills patient is breathing co mfortably and mention overall improvement in her breathing patient denies having any pain to the right Pleurx catheter insertion site and there is no purulent drainage from bedside with no associated erythema denies any nausea no vomiting no abdominal pain and no diarrhea Past Medical History Past Medical History: Atrial Flutter, Cancer, COPD, Deep Vein Thrombosis (DVT), Hyperlipidemia, Hypertension, Osteoarthritis (OA), Pneumonia, Renal Disease, Thyroid Disorder Additional Past Medical History / Comment(s): 2016 Small cell L lung cancer treated with chemoradiation therapy, recent right-sided pleural effusions with thoracentesis, home oxygen at 2L/NC ATC, dysphagia/ aspiration back in 2017 following her cancer radiation treatments, 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 History of Any Multi-Drug Resistant Organisms: None Reported Past Surgical History: Adenoidectomy, Appendectomy, Breast Surgery, Hysterectomy, Tonsillectomy Additional Past Surgical History / Comment(s): Bronchoscopy/biopsy, thoracentesis, L pyeloplasty/JJ cath, L breast core bx x3-benign, EGD, colonoscopy/benign polypectomy. Right-sided Pleurx catheter placement Past Anesthesia/Blood Transfusion Reactions: Postoperative Nausea & Vomiting (PONV) Additional Past Anesthesia/Blood Transfusion Reaction / Comm: Pt has claust erphobia Past Psychological History: Anxiety, Bipolar, Depression Additional Psychological History / Comment(s): Pt resides with her spouse. She has home oxygen/nebulizer. She drives. [facility]. Smoking Status: Former smoker Past Alcohol Use History: None Reported Additional Past Alcohol Use History / Comment(s): Pt quit smoking 2005, started smoking age 17, 1ppd. 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 Past Drug Use History: None Reported - Past Family History Father Family Medical History: CVA/TIA Additional Family Medical History / Comment(s): Father of a cerebral hemorrhage at age 48yrs. Mother Family Medical History: Cancer Additional Family Medical History / Comment(s): Mother of lung cancer. Sister(s) Family Medical History: Cancer Additional Family Medical History / Comment(s): Sister of lung cancer Medications and Allergies Home Medications Medication Instructions Recorded Confirmed Type Albuterol Sulfate [Ventolin HFA] 2 puff INHALATION RT-Q4H PRN 09/10/20 02/26/23 History Atorvastatin [Lipitor] 20 mg PO HS 30 Days tab 02/14/21 02/26/23 Rx atenoloL [Tenormin] 50 mg PO DAILY 30 Days tab 02/14/21 02/26/23 Rx ARIPiprazole [Abilify] 2 mg PO DAILY 03/02/21 02/26/23 History Aspirin EC [Ecotrin Low Dose] 81 mg PO HS 02/26/23 02/26/23 History Divalproex Sodium 125 mg PO BID 02/26/23 02/26/23 History Furosemide [Lasix] 20 - 40 mg PO DAILY PRN 02/26/23 02/26/23 History Levothyroxine Sodium [Synthroid] 100 mcg PO DAILY 02/26/23 02/26/23 History Mirtazapine [Remeron] 7.5 mg PO HS 02/26/23 02/26/23 History Sertraline [Zoloft] 50 mg PO DAILY 02/26/23 02/26/23 History Acetaminophen Tab [Tylenol] 650 mg PO Q6HR PRN tab 02/28/23 Rx Budesonide-Formot 160-4.5 Mcg 2 puff INHALATION RT-BID #1 each 02/28/23 Rx [Symbicort 160-4.5 Mcg Inhaler] predniSONE [Deltasone] 40 mg PO DAILY #6 tab 02/28/23 Rx Allergies Allergy/AdvReac Type Severity Reaction Status Date / Time latex Allergy Swelling Verified 02/26/23 12:54 Physical Exam Vitals: Vital Signs Temp Pulse Pulse Resp BP Pulse Ox 02/28/23 09:04 80 02/28/23 08:58 93 L 02/28/23 08:56 84 02/28/23 07:14 97.9 F 91 16 119/66 90 L 02/28/23 01:27 97.4 F L 79 17 94/55 95 02/27/23 19:28 70 02/27/23 19:19 68 02/27/23 19:11 98.1 F 77 18 100/59 90 L 02/27/23 15:43 70 02/27/23 15:35 98.1 F 80 18 104/63 91 L 02/27/23 15:32 68 Intake and Output 02/27/23 02/28/23 02/28/23 22:59 06:59 14:59 Other: # Voids 4 1 Results CBC & Chem 7: 02/27/23 07:25 02/27/23 07:25 Labs: Abnormal Lab Results - Last 24 Hours (Table) 02/27/23 02/27/23 Range/Units 07:25 07:25 WBC 11.22 H (4.50-10.00) X 10*3/uL RBC 3.99 L (4.10-5.20) X 10*6/uL MCV 97.5 H (80.0-97.0) FL MCHC 30.8 L (32.0-37.0) d/dL MPV 9.2 L (9.5-12.2) FL Neutrophils # 10.79 H (1.80-7.70) X 10*3/uL Lymphocytes # 0.20 L (0.90-5.00) X 10*3/uL Monocytes # 0.15 L (0.20-1.00) X 10*3/uL Eosinophils # 0.01 L (0.04-0.35) X 10*3/uL BUN/Creatinine Ratio 20.33 H (12.00-20.00) Ratio Glucose 138 H (70-110) mg/dL Total Bilirubin <0.2 L (0.3-1.2) mg/dL C-Reactive Protein 5.00 H (0.00-0.80) mg/dL Total Protein 5.0 L (6.2-8.2) d/dL Albumin 3.0 L (3.8-4.9) d/dL Albumin/Globulin Ratio 1.50 L (1.60-3.17) Ratio Microbiology - Last 24 Hours (Table) 02/26/23 17:05 Blood Culture Gram Stain - Preliminary Blood 02/26/23 16:45 Blood Culture Gram Stain - Preliminary Blood Blood Culture - Preliminary 02/26/23 16:49 Gram Stain - Preliminary Pleural Fluid Assessment and Plan Plan: 1patient with a positive blood culture with staph epi x2 sets in this patient who do have a history of small cell lung cancer s/p chemoradiation 2 with recurrent right-sided effusion requiring Pleurx catheter placement patient fluid analysis showing mostly right cell with only 23 WBC and is no evidence of any erythema or cellulitis at the Pleurx catheter insertion site patient not running any fever did have a normal white count on admission and normal procalcitonin concerning for possible skin contamination 2-blood cultures have been repeated before starting vancomycin as per discussion with admitting team 3-we will recheck inflammatory markers 4-vancomycin pharmacy to dose with a target trough of 15 while watching kidney function and Vanco trough closely. While waiting for repeat culture to finalize We will follow on clinical condition and cultures to further adjust medication if needed Thank you for this consultation we will follow the patient along with you Dictation was produced using [employer] dictation software. please excuse any grammatical, word or spelling errors. Time with Patient: Greater than 30
[2023-03-01] MEDS: VANCOMYCIN 1,250 MG in SODIUM CHLORIDE 0.9% 250 ML IVPB SCH ×2 (00:39→11:23)
[2023-03-01] MEDS: methylPREDNISolone SOD SUCCI 125 MG/2 ML VIAL IV SCH ×2 (03:09→09:36)
[2023-03-01] MEDS: LEVOTHYROXINE 100 MCG TAB PO SCH (06:38)
[2023-03-01] MEDS: SYMBICORT 160-4.5 MCG INHALER INHALATION SCH ×2 (07:36→21:40)
[2023-03-01] MEDS: IPRATROPIUM-ALBUTEROL 3 ML NEB INHALATION SCH ×4 (07:36→21:40)
--- NOTE | 2023-03-01 08:52 | P.PN ---
Subjective Progress Note Date: 03/01/23 pt feels better in terms of her breathing. No f/c Objective - Vital Signs Vital signs: Vital Signs Temp 98 F 03/01/23 06:53 Pulse 86 03/01/23 07:52 Resp 18 03/01/23 06:53 BP 131/65 03/01/23 06:53 Pulse Ox 94 L 03/01/23 07:40 FiO2 Intake & Output 02/28/23 03/01/23 03/01/23 18:59 06:59 18:59 Output Total 200 Balance -200 Output: Chest Tube Drainage 200 Pleural Catheter Right 200 Anterior Chest Other: # Voids 3 - Constitutional General appearance: Present: no acute distress - EENT Eyes: Present: EOMI ENT: Present: hearing grossly normal, normal oropharynx - Respiratory Respiratory: right: diminished - Cardiovascular Rhythm: regular Heart sounds: normal: S1, S2 - Gastrointestinal General gastrointestinal: Present: soft - Integumentary Integumentary: Present: normal - Neurologic Neurologic: Present: CNII-XII intact - Musculoskeletal Musculoskeletal: Present: generalized weakness, strength equal bilaterally - Psychiatric Psychiatric: Present: A&O x's 3 - Labs CBC & Chem 7: 02/27/23 07:25 02/27/23 07:25 Labs: Microbiology - Last 24 Hours (Table) 02/26/23 17:05 Blood Culture Gram Stain - Preliminary Blood 02/26/23 16:45 Blood Culture Gram Stain - Preliminary Blood Blood Culture - Preliminary 02/26/23 16:49 Gram Stain - Preliminary Pleural Fluid Assessment and Plan (1) Non-small cell lung cancer (NSCLC) Narrative/Plan: History of same. No evidence of recurrence. Her PET from mid 02/23 was negative. Fluid cytology this admission was also negative. Results d/w pt. has f/u with Dr Dalton next wk Current Visit: Yes Status: Acute Priority: Medium Code(s): C34.90 - MALIGNANT NEOPLASM OF UNSP PART OF UNSP BRONCHUS OR LUNG SNOMED Code(s): 133660255 (2) Pneumonia Narrative/Plan: Respiratory status improved. On antibiotics per ID. Blood cultures positive. Defer to IM/Pulm/ID for ongoing rx Current Visit: Yes Status: Acute Priority: High Code(s): J18.9 - PNEUMONIA, UNSPECIFIED ORGANISM SNOMED Code(s): 607961131
[2023-03-01] MEDS: atenoloL 50 MG TAB PO SCH (09:35)
[2023-03-01] MEDS: ARIPiprazole 2 MG TAB PO SCH (09:35)
[2023-03-01] MEDS: SERTRALINE 50 MG TAB PO SCH (09:35)
[2023-03-01] MEDS: DIVALPROEX SPRINKLE 125 MG CAP.SPRINK PO SCH ×2 (09:36→21:33)
[2023-03-01 10:09] LABS: Basophils # (A) 0.01 X 10*3/uL (0.00-0.10); Basophils % (A) 0.1 %; Eosinophils # (A) 0 X 10*3/uL (0.04-0.35); Eosinophils % (A) 0 %; HCT 41.5 % (37.2-46.3); HGB 12.8 d/dL (12.0-15.0); Lymphocytes # (A) 0.22 X 10*3/uL (0.90-5.00); Lymphocytes % (A) 1.6 %; MCH 30.5 pg (27.0-32.0); MCHC 30.8 d/dL (32.0-37.0); Mean Platelet Volume 9.8 FL (9.5-12.2); Monocytes # (A) 0.22 X 10*3/uL (0.20-1.00); Monocytes % (A) 1.6 %; NRBC Per 100 WBC 0 X 10*3/uL (0.00-0.01); Neutrophils # (A) 13.08 X 10*3/uL (1.80-7.70); Neutrophils % (A) 95.8 %; Platelet Count 265 X 10*3/uL (140-440); RBC 4.19 X 10*6/uL (4.10-5.20); WBC 13.65 X 10*3/uL (4.50-10.00)
[2023-03-01 10:20] LABS: Magnesium 2.3 mg/dL (1.5-2.4)
[2023-03-01 10:35] LABS: ALT 18 U/L (8-44); AST 17 U/L (13-35); Albumin 3.3 d/dL (3.8-4.9); Albumin/Globulin Ratio 1.57 Ratio (1.60-3.17); Alkaline Phosphatase 95 U/L (41-126); BUN/Creat Ratio 29.71 Ratio (12.00-20.00); Blood Urea Nitrogen 20.8 mg/dL (9.0-27.0); Calcium 9.1 mg/dL (8.7-10.3); Carbon Dioxide 25.7 mmol/L (21.6-31.8); Chloride 105 mmol/L (96-109); Globulin 2.1 d/dL (1.6-3.3); Glucose 125 mg/dL (70-110); Potassium 4.6 mmol/L (3.5-5.5); Sodium 142 mmol/L (135-145); Total Bilirubin <0.2 mg/dL (0.3-1.2); Total Protein 5.4 d/dL (6.2-8.2)
--- NOTE | 2023-03-01 11:59 | P.PN ---
Subjective Progress Note Date: 03/01/23 Principal diagnosis: Shortness of breath. I am seeing this patient in consultation today 02/27/2023 for ongoing progressive shortness of breath over the past 10 days accompanied with bloody drainage from her Pleurx catheter. 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 She does follow with Dr. Lucio in the office. She also has history of hypertension, hyperlipidemia, hypothyroidism, atrial fibrillation, and right upper extremity DVT. Primary care provider is Dr. Yao Miller. The patient presented emergency department yesterday morning complaining of shortness of breath for the last 10 days. She states that she is also right-sided chest pain that radiates to her right shoulder, and bloody output out of her Pleurx catheter. The Pleurx catheter was inserted back in December 2020 for recurrent right-sided pleural effusion. She states that she normally drains approximately 500-800 ML's of serous fluid every other day from her Pleurx catheter. Over the past 10 days, however, she's had sanguinous output of about 400 ML's every other day. Patient denies any infectious symptoms such as cough, fever, chills, myalgias, hemoptysis. Patient did have a PET scan last week which showed no suspicious uptake suggesting metastatic disease. There was a small to moderate loculated right pleural fluid collection. Repeat chest CT on arrival to the emergency room did not demonstrate any pulmonary embolism. It did read demonstrates similar to slightly increased loculated areas of pleural effusion on the right. There was a collection along the posteriormedial right upper to mid lung that was particularly larger measuring 8.4 x 5.9 cm. There was increasing patchy airspace opacities within the right basilar lower lobe and right middle lobe. Pneumonia is within the differential. She is currently sitting up in bed, on 6 L/m nasal cannula, in no acute distress. CBC and BMP on arrival were unremarkab le. Patient was negative for influenza, RSV, COVID-19. Troponin was less than 0.012. NT proBNP was low at 333. ECG shows no obvious acute ischemic changes. Patient has been started on empiric Rocephin and azithromycin. Blood and fluid body cultures are pending. Patient is currently afebrile. Vital signs are stable. Progress note dated 02/28/2023. 82-year-old female who was seen in consultation yesterday. The patient has a Pleurx catheter in place, as she has a history of small cell carcinoma of the lung. The patient is status post chemoradiation, with a recurrent right-sided pleural effusion and Pleurx catheter placement. Currently she feels better. She's currently on 3 L of oxygen. She's not receiving any IV fluids. No new labs today. Labs from yesterday, have been reviewed. Progress note dated 03/01/2023. 82-year-old female who was seen in consultation 2 days ago. Currently, the patient is feeling well. She continues on oxygen at 3 L. Blood cultures apparently are showing possible staph epidermidis. The patient denies any fever or chills. She has a history of small cell lung cancer, and a previous Pleurx catheter placement, on the right side. White count 13.65, hemoglobin 12.8, hematocrit 41.5, platelet count 265,000. Sodium 142, potassium 4.6, chlorides 105, CO2 26, BUN 21, creatinine 0.7. The rest of the labs are reviewed. Pro- calcitonin level is normal at 0.05. The patient's currently on vancomycin, and neck and likely be discontinued. Solu-Medrol was also discontinued in favor of prednisone. Objective - Vital Signs Vital signs: Vital Signs Temp 98 F 03/01/23 06:53 Pulse 80 03/01/23 11:22 Resp 18 03/01/23 06:53 BP 131/65 03/01/23 06:53 Pulse Ox 94 L 03/01/23 07:40 FiO2 Intake & Output 02/28/23 03/01/23 03/01/23 18:59 06:59 18:59 Output Total 200 Balance -200 Output: Chest Tube Drainage 200 Pleural Catheter Right 200 Anterior Chest Other: # Voids 3 - Exam No acute distress, oriented 3. Currently on 3 L of oxygen. Saturations are 95%. HEENT examination is grossly unremarkable. Neck supple. Full range of motion. No adenopathy thyromegaly or neck vein distention. Cardiovascular examination reveals regular rhythm rate. S1-S2 normal. No S3 or S4. No discernible murmur noted. Heart rate 80 bpm. Lungs reveal scattered bilateral breath sounds. Occasional rhonchi are noted. No wheezes. No crackles. 3 L saturation is in the mid 90s. Abdomen soft bowel sounds are heard. No masses or tenderness. Extremities are intact. No cyanosis clubbing or edema. Skin is without rash or lesion. Neurologic examination is brief but nonfocal. - Labs CBC & Chem 7: 03/01/23 06:02 03/01/23 06:02 Labs: Abnormal Lab Results - Last 24 Hours (Table) 03/01/23 03/01/23 Range/Units 06:02 06:02 WBC 13.65 H (4.50-10.00) X 10*3/uL MCV 99.0 H (80.0-97.0) FL MCHC 30.8 L (32.0-37.0) d/dL Neutrophils # 13.08 H (1.80-7.70) X 10*3/uL Lymphocytes # 0.22 L (0.90-5.00) X 10*3/uL Eosinophils # 0 L (0.04-0.35) X 10*3/uL BUN/Creatinine Ratio 29.71 H (12.00-20.00) Ratio Glucose 125 H (70-110) mg/dL Total Bilirubin <0.2 L (0.3-1.2) mg/dL C-Reactive Protein 0.90 H (0.00-0.80) mg/dL Total Protein 5.4 L (6.2-8.2) d/dL Albumin 3.3 L (3.8-4.9) d/dL Albumin/Globulin Ratio 1.57 L (1.60-3.17) Ratio Microbiology - Last 24 Hours (Table) 02/26/23 17:05 Blood Culture Gram Stain - Preliminary Blood Blood Culture - Preliminary Coagulase Negative Staph 02/26/23 16:45 Blood Culture Gram Stain - Preliminary Blood Blood Culture - Preliminary Coagulase Negative Staph 02/26/23 16:49 Gram Stain - Preliminary Pleural Fluid Assessment and Plan Assessment: Recurrent right-sided pleural effusions status post Pleurx catheter insertion Dec, 2020. In the past, the fluid has been cytologically negative for metastasis. Patient has had sanguinous output of around 400 ML's every 48 hours for the past 10 days. Acute on chronic hypoxemic respiratory failure, secondary to above and possibly community acquired pneumonia. Chest CTA on arrival demonstrates similar to sli ghtly increased loculated areas of pleural effusion on the right. There was a collection along the posteriormedial right upper to mid lung that was particularly larger measuring 8.4 x 5.9 cm. There was increasing patchy airspace opacities within the right basilar lower lobe and right middle lobe concerning for pneumonia. 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 PET scan performed last week showed no suspicious uptake suggesting metastatic disease. There was a small to moderate loculated right pleural fluid collection. Acute COPD exacerbation. Benign essential hypertension. Hyperlipidemia. Hypothyroidism. Remote history of right upper extremity DVT, not anticoagulated. Plan: Plan dated 02/28/2023. The patient remains on Symbicort, updrafts with albuterol and ipratropium bromide, and Solu-Medrol. Clinically, the patient is feeling better. The patient is on vancomycin. Microbiology is currently negative, and pro-calcitonin level was in the normal range. The antibiotics should be discontinued or de-escalated. Clinically, the patient's doing better, and feels better. Labs, x-rays, medications are reviewed. Plan dated 03/01/2023. Solu-Medrol is discontinued in favor of prednisone. She continues on Symbicort, and DuoNeb. The patient's blood culture likely represent staph epidermidis. Labs, x-rays, and medications are reviewed. Clinically she stable. From the pulmonary standpoint, she could be considered for possible discharge. We will continue to follow. No additional recommendations at this time. Time with Patient: Less than 30
--- NOTE | 2023-03-01 13:56 | P.PN ---
Subjective Progress Note Date: 03/01/23 No new complaints. Pt feels dyspnea is much better, feels at baseline. Pending new Bcx. likely d/c tomorrow if BCx negative. Gen: in no apparent distress, resting comfortably in bed Eyes: PERRL, no scleral injection or icterus HENT: normocephalic, atraumatic, good hearing acuity, moist mucous membranes Neck: no tracheal deviation, full range of motion Resp: Right sided crackles from low to mid chest, improved lung sounds on the left, no accessory muscle use CVS: good distal perfusion x 4, no pitting edema GI: soft, NTTP, ND, no hepatosplenomegaly : no suprapubic tenderness, no CVAT, crespo catheter not present MSK: no clubbing, no cyanosis, no noted contractures of extremities Skin: no noted rashes, petechiae; temperature of skin is appropriate Neuro: moving all extremities without signs of weakness, CN II-XII intact Psych: cooperative, euthymic mood, insight and judgment intact Labs and imaging as above Assessment: Acute on chronic hypoxemic respiratory failure with hypercarbia COPD exacerbation Right pleural effusion, sanguinous History of small cell lung cancer Hypertension Hyperlipidemia History of DVT Plan: Cytology reviewed, negative for malignancy, shows purely bloody output. Discussed case with radiology re: possibility of fistulization between bronchial vasculature and pleural space - it is possible given hx of radiation, but if so it is distal, small, and no therapeutic modalities would be recommended. Continue vancomycin, ID consult appreciated CT surgery - no acute intervention at this time Nebulizers Patient is no code Objective - Vital Signs Vital signs: Vital Signs Temp 98 F 03/01/23 06:53 Pulse 80 03/01/23 11:22 Resp 18 03/01/23 06:53 BP 131/65 03/01/23 06:53 Pulse Ox 94 L 03/01/23 07:40 FiO2 Intake & Output 02/28/23 03/01/23 03/01/23 18:59 06:59 18:59 Output Total 200 Balance -200 Output: Chest Tube Drainage 200 Pleural Catheter Right 200 Anterior Chest Other: # Voids 3 - Labs CBC & Chem 7: 03/01/23 06:02 03/01/23 06:02 Labs: Abnormal Lab Results - Last 24 Hours (Table) 03/01/23 03/01/23 Range/Units 06:02 06:02 WBC 13.65 H (4.50-10.00) X 10*3/uL MCV 99.0 H (80.0-97.0) FL MCHC 30.8 L (32.0-37.0) d/dL Neutrophils # 13.08 H (1.80-7.70) X 10*3/uL Lymphocytes # 0.22 L (0.90-5.00) X 10*3/uL Eosinophils # 0 L (0.04-0.35) X 10*3/uL BUN/Creatinine Ratio 29.71 H (12.00-20.00) Ratio Glucose 125 H (70-110) mg/dL Total Bilirubin <0.2 L (0.3-1.2) mg/dL C-Reactive Protein 0.90 H (0.00-0.80) mg/dL Total Protein 5.4 L (6.2-8.2) d/dL Albumin 3.3 L (3.8-4.9) d/dL Albumin/Globulin Ratio 1.57 L (1.60-3.17) Ratio Microbiology - Last 24 Hours (Table) 02/26/23 17:05 Blood Culture Gram Stain - Preliminary Blood Blood Culture - Preliminary Coagulase Negative Staph 02/26/23 16:45 Blood Culture Gram Stain - Preliminary Blood Blood Culture - Preliminary Coagulase Negative Staph
--- NOTE | 2023-03-01 14:28 | P.PN ---
Subjective Progress Note Date: 03/01/23 Principal diagnosis: Positive blood culture Patient is a 82-year-old female with a past medical history significant for small cell lung cancer status post chemoradiation several years ago patient did have a recurrent right effusion requiring Pleurx catheter placement, presented to hospital with increasing shortness of breath and did have some blood stained fluid, patient did have a positive blood culture with coagulase-negative staph prompted this infectious disease consultation On today's evaluation that is 03/01/2023 the patient denies having any fever or any chills, the patient is breathing comfortably with a decrease in oxygen. Denies having any chest pain and no worsening cough or sputum production no abdominal pain and no diarrhea Patient did have white count of 13.65 with a left shift creatinine 0.7, repeat blood cultures currently pending Objective - Vital Signs Vital signs: Vital Signs Temp 98 F 03/01/23 06:53 Pulse 80 03/01/23 11:22 Resp 18 03/01/23 06:53 BP 131/65 03/01/23 06:53 Pulse Ox 94 L 03/01/23 07:40 FiO2 Intake & Output 02/28/23 03/01/23 03/01/23 18:59 06:59 18:59 Output Total 200 Balance -200 Output: Chest Tube Drainage 200 Pleural Catheter Right 200 Anterior Chest Other: # Voids 3 - Exam GENERAL DESCRIPTION: An elderly female lying in bed in no distress RESPIRATORY SYSTEM: Unlabored breathing , decreased breath sounds at bases HEART: S1 S2 regular rate and rhythm , ABDOMEN: Soft , no tenderness EXTREMITIES: No edema feet - Labs CBC & Chem 7: 03/01/23 06:02 03/01/23 06:02 Labs: Abnormal Lab Results - Last 24 Hours (Table) 03/01/23 03/01/23 Range/Units 06:02 06:02 WBC 13.65 H (4.50-10.00) X 10*3/uL MCV 99.0 H (80.0-97.0) FL MCHC 30.8 L (32.0-37.0) d/dL Neutrophils # 13.08 H (1.80-7.70) X 10*3/uL Lymphocytes # 0.22 L (0.90-5.00) X 10*3/uL Eosinophils # 0 L (0.04-0.35) X 10*3/uL BUN/Creatinine Ratio 29.71 H (12.00-20.00) Ratio Glucose 125 H (70-110) mg/dL Total Bilirubin <0.2 L (0.3-1.2) mg/dL C-Reactive Protein 0.90 H (0.00-0.80) mg/dL Total Protein 5.4 L (6.2-8.2) d/dL Albumin 3.3 L (3.8-4.9) d/dL Albumin/Globulin Ratio 1.57 L (1.60-3.17) Ratio Microbiology - Last 24 Hours (Table) 02/26/23 17:05 Blood Culture Gram Stain - Preliminary Blood Blood Culture - Preliminary Coagulase Negative Staph 02/26/23 16:45 Blood Culture Gram Stain - Preliminary Blood Blood Culture - Preliminary Coagulase Negative Staph Assessment and Plan (1) Positive blood culture Current Visit: Yes Status: Acute Code(s): R78.81 - BACTEREMIA SNOMED Code(s): 333067071 (2) Leukocytosis Current Visit: Yes Status: Acute Code(s): D72.829 - ELEVATED WHITE BLOOD CELL COUNT, UNSPECIFIED SNOMED Code(s): 360540148 Plan: 1patient with a positive blood culture with staph epi x2 sets in this patient who do have a history of small cell lung cancer s/p chemoradiation 2 with recurrent right-sided effusion requiring Pleurx catheter placement patient fluid analysis showing mostly right cell with only 23 WBC and is no evidence of any erythema or cellulitis at the Pleurx catheter insertion site patient not running any fever did have a normal white count on admission and normal procalcitonin concerning for possible skin contamination 2-blood cultures have been repeated and currently pending 3- inflammatory markers requested and currently pending 4-patient to continue vancomycin pharmacy to dose with a target trough of 15 while watching kidney function and Vanco trough closely. While waiting for repeat culture to finalize Dictation was produced using [employer] software. please excuse any grammatical, word or spelling errors. Time with Patient: Less than 30
[2023-03-01] MEDS: ASPIRIN 81 MG PO SCH (21:32)
[2023-03-01] MEDS: MIRTAZAPINE 15 MG TAB PO SCH (21:32)
[2023-03-01] MEDS: ATORVASTATIN 20 MG TAB PO SCH (21:33)
[2023-03-02] MEDS: VANCOMYCIN 1,250 MG in SODIUM CHLORIDE 0.9% 250 ML IVPB SCH ×2 (06:34→20:37)
[2023-03-02] MEDS: LEVOTHYROXINE 100 MCG TAB PO SCH (06:34)
[2023-03-02 06:37] LABS: African American GFR (CKD) 83 (>60 ml/min/1.73 sqM); Non-African American GFR(CKD) 72 (>60 ml/min/1.73 sqM)
[2023-03-02] MEDS: SYMBICORT 160-4.5 MCG INHALER INHALATION SCH ×2 (09:18→20:12)
[2023-03-02] MEDS: IPRATROPIUM-ALBUTEROL 3 ML NEB INHALATION SCH ×4 (09:18→20:12)
[2023-03-02] MEDS: DIVALPROEX SPRINKLE 125 MG CAP.SPRINK PO SCH ×2 (10:24→20:38)
[2023-03-02] MEDS: ARIPiprazole 2 MG TAB PO SCH (10:24)
[2023-03-02] MEDS: SERTRALINE 50 MG TAB PO SCH (10:25)
[2023-03-02] MEDS: atenoloL 50 MG TAB PO SCH (10:25)
[2023-03-02] MEDS: predniSONE 20 MG TAB PO SCH (10:25)
--- NOTE | 2023-03-02 12:04 | P.PN ---
Subjective Progress Note Date: 03/02/23 Principal diagnosis: Shortness of breath. I am seeing this patient in consultation today 02/27/2023 for ongoing progressive shortness of breath over the past 10 days accompanied with bloody drainage from her Pleurx catheter. 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 She does follow with Dr. Lucio in the office. She also has history of hypertension, hyperlipidemia, hypothyroidism, atrial fibrillation, and right upper extremity DVT. Primary care provider is Dr. Yao Miller. The patient presented emergency department yesterday morning complaining of shortness of breath for the last 10 days. She states that she is also right-sided chest pain that radiates to her right shoulder, and bloody output out of her Pleurx catheter. The Pleurx catheter was inserted back in December 2020 for recurrent right-sided pleural effusion. She states that she normally drains approximately 500-800 ML's of serous fluid every other day from her Pleurx catheter. Over the past 10 days, however, she's had sanguinous output of about 400 ML's every other day. Patient denies any infectious symptoms such as cough, fever, chills, myalgias, hemoptysis. Patient did have a PET scan last week which showed no suspicious uptake suggesting metastatic disease. There was a small to moderate loculated right pleural fluid collection. Repeat chest CT on arrival to the emergency room did not demonstrate any pulmonary embolism. It did read demonstrates similar to slightly increased loculated areas of pleural effusion on the right. There was a collection along the posteriormedial right upper to mid lung that was particularly larger measuring 8.4 x 5.9 cm. There was increasing patchy airspace opacities within the right basilar lower lobe and right middle lobe. Pneumonia is within the differential. She is currently sitting up in bed, on 6 L/m nasal cannula, in no acute distress. CBC and BMP on arrival were unremarkab le. Patient was negative for influenza, RSV, COVID-19. Troponin was less than 0.012. NT proBNP was low at 333. ECG shows no obvious acute ischemic changes. Patient has been started on empiric Rocephin and azithromycin. Blood and fluid body cultures are pending. Patient is currently afebrile. Vital signs are stable. Progress note dated 02/28/2023. 82-year-old female who was seen in consultation yesterday. The patient has a Pleurx catheter in place, as she has a history of small cell carcinoma of the lung. The patient is status post chemoradiation, with a recurrent right-sided pleural effusion and Pleurx catheter placement. Currently she feels better. She's currently on 3 L of oxygen. She's not receiving any IV fluids. No new labs today. Labs from yesterday, have been reviewed. Progress note dated 03/01/2023. 82-year-old female who was seen in consultation 2 days ago. Currently, the patient is feeling well. She continues on oxygen at 3 L. Blood cultures apparently are showing possible staph epidermidis. The patient denies any fever or chills. She has a history of small cell lung cancer, and a previous Pleurx catheter placement, on the right side. White count 13.65, hemoglobin 12.8, hematocrit 41.5, platelet count 265,000. Sodium 142, potassium 4.6, chlorides 105, CO2 26, BUN 21, creatinine 0.7. The rest of the labs are reviewed. Pro- calcitonin level is normal at 0.05. The patient's currently on vancomycin, and neck and likely be discontinued. Solu-Medrol was also discontinued in favor of prednisone. Progress note dated 03/02/2023. The patient is seen today in room 455. The patient is currently on 3 L of oxygen. Saturations between 93 and 95%. The patient's pro-calcitonin level was 0.05. Patient remains on vancomycin for coag negative staph aureus. This likely represents staph epidermidis. Clinically, she feels well. Labs today include a creatinine of 0.78. Objective - Vital Signs Vital signs: Vital Signs Temp 97.6 F 03/02/23 07:03 Pulse 72 03/02/23 09:31 Resp 18 03/02/23 07:03 BP 147/81 03/02/23 07:03 Pulse Ox 93 L 03/02/23 09:20 FiO2 Intake & Output 03/01/23 03/02/23 03/02/23 18:59 06:59 18:59 Other: # Voids 4 1 - Exam No acute distress, oriented 3. Currently on 3 L of oxygen. Saturations are 93-95%. HEENT examination is grossly unremarkable. Neck supple. Full range of motion. No adenopathy thyromegaly or neck vein distention. Cardiovascular examination reveals regular rhythm rate. S1-S2 normal. No S3 or S4. No discernible murmur noted. Heart rate 72 bpm. Lungs reveal scattered bilateral breath sounds. Occasional rhonchi are noted. No wheezes. No crackles. Abdomen soft bowel sounds are heard. No masses or tenderness. Extremities are intact. No cyanosis clubbing or edema. Skin is without rash or lesion. Neurologic examination is brief but nonfocal. - Labs CBC & Chem 7: 03/01/23 06:02 03/02/23 05:43 Labs: Microbiology - Last 24 Hours (Table) 02/28/23 12:19 Blood Culture - Preliminary Blood 02/28/23 12:12 Blood Culture - Preliminary Blood 02/26/23 17:05 Blood Culture Gram Stain - Preliminary Blood Blood Culture - Preliminary Coagulase Negative Staph 02/26/23 16:45 Blood Culture Gram Stain - Preliminary Blood Blood Culture - Preliminary Coagulase Negative Staph Assessment and Plan Assessment: Recurrent right-sided pleural effusions status post Pleurx catheter insertion Dec, 2020. In the past, the fluid has been cytologically negative for metastasis. Patient has had sanguinous output of around 400 ML's every 48 hours for the past 10 days. Acute on chronic hypoxemic respiratory failure, secondary to above and possibly community acquired pneumonia. Chest CTA on arrival demonstrates similar to slightly increased loculated areas of pleural effusion on the right. There was a collection along the posteriormedial right upper to mid lung that was particularly larger measuring 8.4 x 5.9 cm. There was increasing patchy airspace opacities within the right basilar lower lobe and right middle lobe concerning for pneumonia. 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 PET scan performed last week showed no suspicious uptake suggesting metastatic disease. There was a small to moderate loculated right pleural fluid collection. Acute COPD exacerbation. Benign essential hypertension. Hyperlipidemia. Hypothyroidism. Remote history of right upper extremity DVT, not anticoagulated. Plan: Plan dated 02/28/2023. The patient remains on Symbicort, updrafts with albuterol and ipratropium bromide, and Solu-Medrol. Clinically, the patient is feeling better. The patient is on vancomycin. Microbiology is currently negative, and pro- calcitonin level was in the normal range. The antibiotics should be discontinued or de-escalated. Clinically, the patient's doing better, and feels better. Labs, x-rays, medications are reviewed. Plan dated 03/01/2023. Solu-Medrol is discontinued in favor of prednisone. She continues on Symbicort, and DuoNeb. The patient's blood culture likely represent staph epidermidis. Labs, x-rays, and medications are reviewed. Clinically she stable. From the pulmonary standpoint, she could be considered for possible discharge. We will continue to follow. No additional recommendations at this time. Plan dated 03/02/2023. The patient continues on prednisone Symbicort, and DuoNeb. She continues on vancomycin. The patient's blood cultures likely represents Staphylococcus epidermidis. Labs, x-rays, medications are reviewed. Clinically, the patient is stable, and could be considered for discharge from the pulmonary standpoint. Additional recommendations and suggestions are forthcoming. Prognosis is certainly guarded. Time with Patient: Less than 30
--- NOTE | 2023-03-02 12:19 | P.PN ---
Subjective Progress Note Date: 03/02/23 No new complaints. Pt feels dyspnea is much better, feels at baseline. Pending Bcx. likely d/c tomorrow if BCx negative. Gen: in no apparent distress, resting comfortably in bed Eyes: PERRL, no scleral injection or icterus HENT: normocephalic, atraumatic, good hearing acuity, moist mucous membranes Neck: no tracheal deviation, full range of motion Resp: Right sided crackles from low to mid chest, improved lung sounds on the left, no accessory muscle use CVS: good distal perfusion x 4, no pitting edema GI: soft, NTTP, ND, no hepatosplenomegaly : no suprapubic tenderness, no CVAT, crespo catheter not present MSK: no clubbing, no cyanosis, no noted contractures of extremities Skin: no noted rashes, petechiae; temperature of skin is appropriate Neuro: moving all extremities without signs of weakness, CN II-XII intact Psych: cooperative, euthymic mood, insight and judgment intact Labs and imaging as above Assessment: Acute on chronic hypoxemic respiratory failure with hypercarbia COPD exacerbation Right pleural effusion, sanguinous History of small cell lung cancer Hypertension Hyperlipidemia History of DVT Plan: Cytology reviewed, negative for malignancy, shows purely bloody output. Discussed case with radiology re: possibility of fistulization between bronchial vasculature and pleural space - it is possible given hx of radiation, but if so it is distal, small, and no therapeutic modalities would be recommended. Continue vancomycin, ID consult appreciated CT surgery - no acute intervention at this time Nebulizers Patient is no code Objective - Vital Signs Vital signs: Vital Signs Temp 97.6 F 03/02/23 07:03 Pulse 72 03/02/23 09:31 Resp 18 03/02/23 07:03 BP 147/81 03/02/23 07:03 Pulse Ox 93 L 03/02/23 09:20 FiO2 Intake & Output 03/01/23 03/02/23 03/02/23 18:59 06:59 18:59 Other: # Voids 4 1 - Labs CBC & Chem 7: 03/01/23 06:02 03/02/23 05:43 Labs: Microbiology - Last 24 Hours (Table) 02/28/23 12:19 Blood Culture - Preliminary Blood 02/28/23 12:12 Blood Culture - Preliminary Blood 02/26/23 17:05 Blood Culture Gram Stain - Preliminary Blood Blood Culture - Preliminary Coagulase Negative Staph 02/26/23 16:45 Blood Culture Gram Stain - Preliminary Blood Blood Culture - Preliminary Coagulase Negative Staph
--- NOTE | 2023-03-02 12:41 | P.PN ---
Subjective Progress Note Date: 03/02/23 Principal diagnosis: Positive blood culture Patient is a 82-year-old female with a past medical history significant for small cell lung cancer status post chemoradiation several years ago patient did have a recurrent right effusion requiring Pleurx catheter placement, presented to hospital with increasing shortness of breath and did have some blood stained fluid, patient did have a positive blood culture with coagulase-negative staph prompted this infectious disease consultation On today's evaluation that is 03/02/2023 the patient remains to be afebrile, the patient is breathing comfortably on 3 L and is a office today, the patient denies having any chest pain and no worsening cough or sputum production no abdominal pain and no diarrhea Patient did have white count of 13.65 with a left shift creatinine 0.7 as of yesterday no CBC was done today, repeat blood cultures done 02/28/2023 currently pending Objective - Vital Signs Vital signs: Vital Signs Temp 97.6 F 03/02/23 07:03 Pulse 74 03/02/23 12:33 Resp 18 03/02/23 07:03 BP 147/81 03/02/23 07:03 Pulse Ox 93 L 03/02/23 09:20 FiO2 Intake & Output 03/01/23 03/02/23 03/02/23 18:59 06:59 18:59 Other: # Voids 4 1 - Exam GENERAL DESCRIPTION: An elderly female lying in bed in no distress RESPIRATORY SYSTEM: Unlabored breathing , decreased breath sounds at bases HEART: S1 S2 regular rate and rhythm , ABDOMEN: Soft , no tenderness EXTREMITIES: No edema feet - Labs CBC & Chem 7: 03/01/23 06:02 03/02/23 05:43 Labs: Microbiology - Last 24 Hours (Table) 02/28/23 12:19 Blood Culture - Preliminary Blood 02/28/23 12:12 Blood Culture - Preliminary Blood 02/26/23 17:05 Blood Culture Gram Stain - Preliminary Blood Blood Culture - Preliminary Coagulase Negative Staph 02/26/23 16:45 Blood Culture Gram Stain - Preliminary Blood Blood Culture - Preliminary Coagulase Negative Staph Assessment and Plan (1) Positive blood culture Current Visit: Yes Status: Acute Code(s): R78.81 - BACTEREMIA SNOMED Code(s): 332673700 (2) Leukocytosis Current Visit: Yes Status: Acute Code(s): D72.829 - ELEVATED WHITE BLOOD CELL COUNT, UNSPECIFIED SNOMED Code(s): 200405678 Plan: 1patient with a positive blood culture with staph epi x2 sets in this patient who do have a history of small cell lung cancer s/p chemoradiation 2 with recurrent right-sided effusion requiring Pleurx catheter placement patient fluid analysis showing mostly right cell with only 23 WBC and is no evidence of any erythema or cellulitis at the Pleurx catheter insertion site patient not running any fever did have a normal white count on admission and normal procalcitonin concerning for possible skin contamination 2-blood cultures have been repeated and currently pending 3-patient did have a CRP of 5 that is down to 0.90 as of yesterday, pro- calcitonin was 0.05 on 02/26/2023 and not repeated 4-patient to continue vancomycin pharmacy to dose While waiting for repeat culture to finalize, which if negative no need for antibiotics on discharge Dictation was produced using [employer] dictation software. please excuse any grammatical, word or spelling errors. Time with Patient: Less than 30
[2023-03-02] MEDS ORDERED: VANCOMYCIN TROUGH DUE 1 EACH MISC MISCELLANE ONE (19:00)
[2023-03-02] MEDS: ASPIRIN 81 MG PO SCH (20:37)
[2023-03-02] MEDS: ATORVASTATIN 20 MG TAB PO SCH (20:37)
[2023-03-02] MEDS: MIRTAZAPINE 15 MG TAB PO SCH (20:37)
[2023-03-03] MEDS: LEVOTHYROXINE 100 MCG TAB PO SCH (05:24)
[2023-03-03] MEDS: ARIPiprazole 2 MG TAB PO SCH (08:06)
[2023-03-03] MEDS: predniSONE 20 MG TAB PO SCH (08:06)
[2023-03-03] MEDS: DIVALPROEX SPRINKLE 125 MG CAP.SPRINK PO SCH (08:06)
[2023-03-03] MEDS: SERTRALINE 50 MG TAB PO SCH (08:06)
[2023-03-03] MEDS: atenoloL 50 MG TAB PO SCH (08:06)
[2023-03-03 08:38] VITALS: BP 117/70; RESP 17; TEMP 97.9
[2023-03-03] MEDS: IPRATROPIUM-ALBUTEROL 3 ML NEB INHALATION SCH ×2 (08:52→12:07)
[2023-03-03] MEDS: SYMBICORT 160-4.5 MCG INHALER INHALATION SCH (08:53)
[2023-03-03 09:05] VITALS: PULSE 68
[2023-03-03] MEDS ORDERED: AMPICILLIN-SULBACTAM 3 GM in SODIUM CHLORIDE 0.9% 100 ML IVPB STA (10:03)
--- NOTE | 2023-03-03 13:57 | P.DS ---
Providers Date of admission: 02/26/23 14:50 Expected date of discharge: 03/03/23 Attending physician: Omero Couch MD Consults: 02/26/23 14:50 Consult Physician Routine Consulting Provider: Armando Ford Consult Reason/Comments: pleural drainage catheter bloody Do you want consulting provider notified?: Yes 02/26/23 18:31 Consult Physician Routine Consulting Provider: Polo Cullen Consult Reason/Comments: copd, emphysema, hx of SCLC Do you want consulting provider notified?: Yes Consult Physician Routine Consulting Provider: Kishan Don Consult Reason/Comments: HX OF SCLC, PLEURX Do you want consulting provider notified?: Yes 02/28/23 10:32 Consult Physician Routine Consulting Provider: Mignon Harris Consult Reason/Comments: blood cx pos 2/2 for staph epi Do you want consulting provider notified?: Yes Primary care physician: Yao Haywood MD Hospital Course: Assessment: Acute on chronic hypoxemic respiratory failure with hypercarbia COPD exacerbation Right pleural effusion, sanguinous History of small cell lung cancer Hypertension Hyperlipidemia History of DVT Hospital Course: 82-year-old woman with a medical history of small cell lung cancer status post chemo and radiation 7 years ago who is in remission with recurrent right pleural effusion status post Pleurx paced 7 years ago, COPD with chronic hypoxemic respiratory failure requiring 3 L nasal cannula, hypertension, hyperlipidemia, history of DVT presented for evaluation of shortness of breath and right-sided chest pain. In the emergency room, patient was afebrile, 109/67, heart rate 98, 91% on 6 L nasal cannula. CBC is unremarkable. Basic metabolic panel shows CO2 of 31, otherwise unremarkable. Liver function test showed low total albumin of 2.8, low total protein of 5.8. BNP was 333. Troponin is less than 0.012. Coags are unremarkable. D-dimer is 1.77. Influenza A, B, RSV, Covid were negative. Chest x-ray is rotated, shows complex right-sided pleural effusion with increased infiltrates in the right lower lobe. CT angiography was limited by motion artifact, but was negative for large central or definitive lobar branch pulmonary embolus, did show COPD with advanced emphysema and soft tissue encasement of the right hilum with contiguous capacity and volume loss along the medial right upper lobe, small right pleural effusion, increased patchy opacity in the right lower lobe and right middle lobe. EKG shows normal sinus rhythm, normal axis, no evidence of ischemia, low overall voltage in limb leads and precordial leads. Case was discussed the emergency room provider and decision was made to admit the patient to the hospital for further evaluation. Patient was seen by pulmonology, oncology. Oncology reviewed patient's very recent PET/computed tomography scan and did not believe that there is any suspicion of recurrence of malignancy, furthermore, cytology that was taken on admission from pleural fluid was negative for malignancy. Pulmonology recommended CT surgery evaluation. Patient was seen by their service and did not recommend any acute intervention. Patient's blood cultures taken on admission did return positive for gram-positive croci which later speciate it as coagulase-negative staphylococcus. Pleural fluid did show polymicrobial growth of anaerobic organisms. ID consult was requested, they recommended outpatient Augmentin. Patient was subsequently discharged home with instructions follow-up with primary care physician, pulmonology, oncology as scheduled. I spent 40 minutes coordinating this discharge on 03/03 Gen: in no apparent distress, resting comfortably in bed Eyes: PERRL, no scleral injection or icterus HENT: normocephalic, atraumatic, good hearing acuity, moist mucous membranes Neck: no tracheal deviation, full range of motion Resp: Right sided crackles from low to mid chest, improved lung sounds on the left, no accessory muscle use CVS: good distal perfusion x 4, no pitting edema GI: soft, NTTP, ND, no hepatosplenomegaly : no suprapubic tenderness, no CVAT, crespo catheter not present MSK: no clubbing, no cyanosis, no noted contractures of extremities Skin: no noted rashes, petechiae; temperature of skin is appropriate Neuro: moving all extremities without signs of weakness, CN II-XII intact Psych: cooperative, euthymic mood, insight and judgment intact Patient Condition at Discharge: Good Plan - Discharge Summary Discharge Rx Participant: Yes New Discharge Prescriptions: New predniSONE [Deltasone] 40 mg PO DAILY #6 tab Acetaminophen Tab [Tylenol] 650 mg PO Q6HR PRN tab PRN Reason: Mild Pain Or Fever > 100.5 Budesonide-Formot 160-4.5 Mcg [Symbicort 160-4.5 Mcg Inhaler] 2 puff INHALATION RT-BID #1 each Amoxic-Pot Clav 875-125Mg [Augmentin 875-125] 1 tab PO BID 14 Days #28 tab Continue Albuterol Sulfate [Ventolin HFA] 2 puff INHALATION RT-Q4H PRN PRN Reason: Shortness Of Breath Sertraline [Zoloft] 50 mg PO DAILY Divalproex Sodium 125 mg PO BID Mirtazapine [Remeron] 7.5 mg PO HS Furosemide [Lasix] 20 - 40 mg PO DAILY PRN PRN Reason: Edema Atorvastatin [Lipitor] 20 mg PO HS 30 Days tab atenoloL [Tenormin] 50 mg PO DAILY 30 Days tab ARIPiprazole [Abilify] 2 mg PO DAILY Levothyroxine Sodium [Synthroid] 100 mcg PO DAILY Aspirin EC [Ecotrin Low Dose] 81 mg PO HS Discharge Medication List Albuterol Sulfate [Ventolin HFA] 2 puff INHALATION RT-Q4H PRN 09/10/20 [History] Atorvastatin [Lipitor] 20 mg PO HS 30 Days tab 02/14/21 [Rx] atenoloL [Tenormin] 50 mg PO DAILY 30 Days tab 02/14/21 [Rx] ARIPiprazole [Abilify] 2 mg PO DAILY 03/02/21 [History] Aspirin EC [Ecotrin Low Dose] 81 mg PO HS 02/26/23 [History] Divalproex Sodium 125 mg PO BID 02/26/23 [History] Furosemide [Lasix] 20 - 40 mg PO DAILY PRN 02/26/23 [History] Levothyroxine Sodium [Synthroid] 100 mcg PO DAILY 02/26/23 [History] Mirtazapine [Remeron] 7.5 mg PO HS 02/26/23 [History] Sertraline [Zoloft] 50 mg PO DAILY 02/26/23 [History] Acetaminophen Tab [Tylenol] 650 mg PO Q6HR PRN tab 02/28/23 [Rx] Budesonide-Formot 160-4.5 Mcg [Symbicort 160-4.5 Mcg Inhaler] 2 puff INHALATION RT-BID #1 each 02/28/23 [Rx] predniSONE [Deltasone] 40 mg PO DAILY #6 tab 02/28/23 [Rx] Amoxic-Pot Clav 875-125Mg [Augmentin 875-125] 1 tab PO BID 14 Days #28 tab 03/03/23 [Rx] Follow up Appointment(s)/Referral(s): Yao Haywood MD [Primary Care Provider] - 03/07/23 10:40 am () Discharge Disposition: HOME SELF-CARE
--- NOTE | 2023-03-03 15:47 | P.PN ---
Subjective Progress Note Date: 03/03/23 I am seeing this patient in consultation today 02/27/2023 for ongoing progressive shortness of breath over the past 10 days accompanied with bloody drainage from her Pleurx catheter. 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 She does follow with Dr. Lucio in the office. She also has history of hypertension, hyperlipidemia, hypothyroidism, atrial fibrillation, and right upper extremity DVT. Primary care provider is Dr. Yao Miller. The patient presented emergency department yesterday morning complaining of shortness of breath for the last 10 days. She states that she is also right-sided chest pain that radiates to her right shoulder, and bloody output out of her Pleurx catheter. The Pleurx catheter was inserted back in December 2020 for recurrent right-sided pleural effusion. She states that she normally drains approximately 500-800 ML's of serous fluid every other day from her Pleurx catheter. Over the past 10 days, however, she's had sanguinous output of about 400 ML's every other day. Patient denies any infectious symptoms such as cough, fever, chills, myalgias, hemoptysis. Patient did have a PET scan last week which showed no suspicious uptake suggesting metastatic disease. There was a small to moderate loculated right pleural fluid collection. Repeat chest CT on arrival to the emergency room did not demonstrate any pulmonary embolism. It did read demonstrates similar to slightly increased loculated areas of pleural effusion on the right. There was a collection along the posteriormedial right upper to mid lung that was particularly larger measuring 8.4 x 5.9 cm. There was increasing patchy airspace opacities within the right basilar lower lobe and right middle lobe. Pneumonia is within the differential. She is currently sitting up in bed, on 6 L/m nasal cannula, in no acute distress. CBC and BMP on arrival were unremarkable. Patient was negative for influenza, RSV, COVID-19. Troponin was less than 0.012. NT proBNP was low at 333. ECG shows no obvious acute ischemic changes. Patient has been started on empiric Rocephin and azithromycin. Blood and fluid body cultures are pending. Patient is currently afebrile. Vital signs are stable. Progress note dated 02/28/2023. 82-year-old female who was seen in consultation yesterday. The patient has a Pleurx catheter in place, as she has a history of small cell carcinoma of the lung. The patient is status post chemoradiation, with a recurrent right-sided pleural effusion and Pleurx catheter placement. Currently she feels better. She's currently on 3 L of oxygen. She's not receiving any IV fluids. No new labs today. Labs from yesterday, have been reviewed. Progress note dated 03/01/2023. 82-year-old female who was seen in consultation 2 days ago. Currently, the patient is feeling well. She continues on oxygen at 3 L. Blood cultures apparently are showing possible staph epidermidis. The patient denies any fever or chills. She has a history of small cell lung cancer, and a previous Pleurx catheter placement, on the right side. White count 13.65, hemoglobin 12.8, hematocrit 41.5, platelet count 265,000. Sodium 142, potassium 4.6, chlorides 105, CO2 26, BUN 21, creatinine 0.7. The rest of the labs are reviewed. Pro- calcitonin level is normal at 0.05. The patient's currently on vancomycin, and neck and likely be discontinued. Solu-Medrol was also discontinued in favor of prednisone. Progress note dated 03/02/2023. The patient is seen today in room 455. The patient is currently on 3 L of oxygen. Saturations between 93 and 95%. The patient's pro-calcitonin level was 0.05. Patient remains on vancomycin for coag negative staph aureus. This likely represents staph epidermidis. Clinically, she feels well. Labs today include a creatinine of 0.78. On today's evaluation of 03/03/2023, the patient is stable, afebrile, and she is not looking toxic at all. The blood culture that was taken at time of admission turnout to be gram-positive cocci and he turnout to be coagulase-negative staph. Pleural fluid did not show any specific bacterial growth it was essentially polymicrobial. ID was consulted and the patient was placed on Augmentin. I'm not concerned of a pleural space infection as the patient's pleural fluid showed no evidence or presence of elevation of white cells and the pro calcitonin level has been essentially low. The patient continues to drain the right-sided pleur al fluid periodically. No evidence of any empyema based on the CAT scan findings. The patient is stable for now. Objective - Vital Signs Vital signs: Vital Signs Temp 97.9 F 03/03/23 07:34 Pulse 68 03/03/23 09:04 Resp 17 03/03/23 08:07 BP 117/70 03/03/23 07:34 Pulse Ox 92 L 03/03/23 08:53 FiO2 Intake & Output 03/02/23 03/03/23 03/03/23 18:59 06:59 18:59 Output Total 350 Balance -350 Output: Chest Tube Drainage 350 Pleural Catheter Right 350 Anterior Chest Other: Voiding Method Toilet Toilet # Voids 3 2 - Exam No acute distress, oriented 3. Currently on 3 L of oxygen. Saturations are 93-95%. HEENT examination is grossly unremarkable. Neck supple. Full range of motion. No adenopathy thyromegaly or neck vein distention. Cardiovascular examination reveals regular rhythm rate. S1-S2 normal. No S3 or S4. No discernible murmur noted. Lungs reveal scattered bilateral breath sounds. Occasional rhonchi are noted. No wheezes. No crackles. Abdomen soft bowel sounds are heard. No masses or tenderness. Extremities are intact. No cyanosis clubbing or edema. Skin is without rash or lesion. Neurologic examination is brief but nonfocal. - Labs CBC & Chem 7: 03/01/23 06:02 03/02/23 05:43 Labs: Microbiology - Last 24 Hours (Table) 03/01/23 06:02 Blood Culture - Preliminary Blood 02/26/23 16:49 Gram Stain - Final Pleural Fluid Body Fluid Culture - Final Corynebacterium species Corynebacterium species#2 Proprionibacterium acnes Viridans streptococcus group 02/28/23 12:19 Blood Culture - Preliminary Blood 02/28/23 12:12 Blood Culture - Preliminary Blood 02/26/23 16:49 Anaerobic Culture - Final Pleural Fluid Anaerobic Gram Positive Cocci Assessment and Plan Plan: Recurrent right-sided pleural effusions status post Pleurx catheter insertion Dec, 2020. In the past, the fluid has been cytologically negative for metastasis. Patient has had sanguinous output of around 400 ML's every 48 hours for the past 10 days. Acute on chronic hypoxemic respiratory failure, secondary to above and possibly community acquired pneumonia. Chest CTA on arrival demonstrates similar to slightly increased loculated areas of pleural effusion on the right. There was a collection along the posteriormedial right upper to mid lung that was particularly larger measuring 8.4 x 5.9 cm. Coagulase-negative staph in the blood, likely contaminant Polymicrobial growth of pleural fluid without any elevation of the white cell count or elevation pro-calcitonin level, likely contaminant and furthermore the CAT scan of the chest does not show any evidence of empyema withinfection of pleural fluid is nonpurulent. 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 PET scan performed last week showed no suspicious uptake suggesting metastatic disease. There was a small to moderate loculated right pleural fluid collection. Acute COPD exacerbation, improving Benign essential hypertension. Hyperlipidemia. Hypothyroidism. Remote history of right upper extremity DVT, not anticoagulated. Plan: Continue periodic drainage of the pleural fluid on outpatient basis O2 at 2 L per minute nasal cannula Antibiotics per infectious disease Prednisone burst taper Routine bronchodilators as prescribed on outpatient basis Possible home today
== END 2023-03-03 15:27 | disposition home or self-care (01) | DRG 193 ==
LOC: EC 10:40 → 4SSUR 14:50
PROVIDERS: ADMIT Student in an Organized Health Care Education/Training Program; ATTEND Student in an Organized Health Care Education/Training Program
DX: J18.9 Pneumonia, unspecified organism (principal); J96.21 Acute and chronic respiratory failure with hypoxia; J96.22 Acute and chronic respiratory failure with hypercapnia; J91.8 Pleural effusion in other conditions classified elsewhere; C34.90 Malignant neoplasm of unspecified part of unspecified bronchus or lung; I48.91 Unspecified atrial fibrillation; J43.9 Emphysema, unspecified; I10 Essential (primary) hypertension; F41.9 Anxiety disorder, unspecified; F31.9 Bipolar disorder, unspecified; E78.5 Hyperlipidemia, unspecified; E03.9 Hypothyroidism, unspecified; Z20.822 Contact with and (suspected) exposure to COVID-19; Z79.51 Long term (current) use of inhaled steroids; Z79.890 Hormone replacement therapy; Z79.899 Other long term (current) drug therapy; Z80.1 Family history of malignant neoplasm of trachea, bronchus and lung; Z85.118 Personal history of other malignant neoplasm of bronchus and lung; Z86.718 Personal history of other venous thrombosis and embolism; Z90.710 Acquired absence of both cervix and uterus; Z92.21 Personal history of antineoplastic chemotherapy; Z92.3 Personal history of irradiation; Z91.040 Latex allergy status
CPT/HCPCS: 36415; 71045; 71046; 71275; 80048; 80053; 80076; 80202; 82042; 82150; 82565; 82945; 83605; 83615; 83735; 83880; 84145; 84157; 84484; 85025; 85379; 85610; 85730; 86140; 87040; 87070; 87075; 87077; 87102; 87116; 87186; 87205; 87206; 87636; 88108; 88305; 89050; 93005; 94640; 94760; 96365; 96366; 96367; 96375; 99285

== ENCOUNTER 2023-03-22 07:45 | Inpatient (IN) | payer MEDICARE, BC ==
[2023-03-22] MEDS ORDERED: SODIUM CHLORIDE 0.9% 500 ML 500 ML IV ONE (08:30)
[2023-03-22] MEDS ORDERED: LORazepam 2 MG/ML INJ IV STA (08:31)
--- NOTE | 2023-03-22 09:09 | ED ---
General Adult HPI - General Chief complaint: Altered Mental Status Stated complaint: SOB Time Seen by Provider: 03/22/23 08:15 Source: patient, family, RN notes reviewed, old records reviewed Mode of arrival: wheelchair Limitations: no limitations - History of Present Illness Initial comments: This is an 82-year-old female presents emergency Department complaining of having altered mental status. thinks it's mostly related to anxiety but she just gets super agitated doesn't know what to do next. Patient states she has a history of lung cancer it is contained to the lung. Patient has a drain along that she's bowstring every 3 days. Patient denies headache patient denies numbness or weakness. Patient denies any chest pain. Patient states she does feel short of breath on occasion. Patient states she also is been coughing quite a bit more lately. Patient denies fever chills per patient denies abdominal pain patient denies nausea vomiting diarrhea. Patient denies any dysuria hematuria urinary frequency. - Related Data Home Medications Medication Instructions Recorded Confirmed Albuterol Sulfate [Ventolin HFA] 2 puff INHALATION RT-Q4H PRN 09/10/20 02/26/23 ARIPiprazole [Abilify] 2 mg PO DAILY 03/02/21 02/26/23 Aspirin EC [Ecotrin Low Dose] 81 mg PO HS 02/26/23 02/26/23 Divalproex Sodium 125 mg PO BID 02/26/23 02/26/23 Furosemide [Lasix] 20 - 40 mg PO DAILY PRN 02/26/23 02/26/23 Levothyroxine Sodium [Synthroid] 100 mcg PO DAILY 02/26/23 02/26/23 Mirtazapine [Remeron] 7.5 mg PO HS 02/26/23 02/26/23 Sertraline [Zoloft] 50 mg PO DAILY 02/26/23 02/26/23 Previous Rx's Medication Instructions Recorded Atorvastatin [Lipitor] 20 mg PO HS 30 Days tab 02/14/21 atenoloL [Tenormin] 50 mg PO DAILY 30 Days tab 02/14/21 Acetaminophen Tab [Tylenol] 650 mg PO Q6HR PRN tab 02/28/23 Budesonide-Formot 160-4.5 Mcg 2 puff INHALATION RT-BID #1 each 07/28/23 [Symbicort 160-4.5 Mcg Inhaler] predniSONE [Deltasone] 40 mg PO DAILY #6 tab 02/28/23 Amoxic-Pot Clav 875-125Mg 1 tab PO BID 14 Days #28 tab 03/03/23 [Augmentin 875-125] Allergies Allergy/AdvReac Type Severity Reaction Status Date / Time latex Allergy Swelling Verified 02/26/23 12:54 Review of Systems ROS Statement: Those systems with pertinent positive or pertinent negative responses have been documented in the HPI. ROS Other: All systems not noted in ROS Statement are negative. 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 History of Any Multi-Drug Resistant Organisms: None Reported Past Surgical History: Adenoidectomy, Appendectomy, Breast Surgery, Hysterectomy, Tonsillectomy Additional Past Surgical History / Comment(s): Bronchoscopy/biopsy, thoracen tesis, L pyeloplasty/JJ cath, L breast core bx x3-benign, EGD, colonoscopy/benign polypectomy. Right-sided Pleurx catheter placement Past Anesthesia/Blood Transfusion Reactions: Postoperative Nausea & Vomiting (PONV) Additional Past Anesthesia/Blood Transfusion Reaction / Comment(s): Pt has clausterphobia Past Psychological History: Anxiety, Bipolar, Depression Smoking Status: Former smoker Past Alcohol Use History: None Reported Past Drug Use History: None Reported - Past Family History Father Family Medical History: CVA/TIA Additional Family Medical History / Comment(s): Father of a cerebral hemorrhage at age 48yrs. Mother Family Medical History: Cancer Additional Family Medical History / Comment(s): Mother of lung cancer. Sister(s) Family Medical History: Cancer Additional Family Medical History / Comment(s): Sister of lung cancer General Exam - General Exam Comments Initial Comments: GENERAL: Patient is well-developed and well-nourished. Patient is nontoxic and well- hydrated and is in no acute distress. ENT: Neck is soft and supple. No significant lymphadenopathy is noted. Oropharynx is clear. Moist mucous membranes. Neck has full range of motion without eliciting any pain. EYES: The sclera were anicteric and conjunctiva were pink and moist. Extraocular movements were intact and pupils were equal round and reactive to light. Eyelids were unremarkable. PULMONARY: Patient has crackles in the right base. CARDIOVASCULAR: There is a regular rate and rhythm without any murmurs gallops or rubs. ABDOMEN: Soft and nontender with normal bowel sounds. SKIN: Skin is clear with no lesions or rashes and otherwise unremarkable. NEUROLOGIC: Patient is alert and oriented x3. Cranial nerves II through XII are grossly intact. Motor and sensory are also intact. Normal speech, volume and content. Symmetrical smile. MUSCULOSKELETAL: Normal extremities with adequate strength and full range of motion. No lower extremity swelling or edema. No calf tenderness. LYMPHATICS: No significant lymphadenopathy is noted PSYCHIATRIC: Patient is moderately anxious. Limitations: no limitations Course Vital Signs 03/22/23 03/22/23 03/22/23 08:07 08:26 10:55 Temperature 98.1 F Pulse Rate 76 71 Respiratory 20 18 Rate Blood Pressure 114/73 93/56 O2 Sat by Pulse 82 L 95 90 L Oximetry Medical Decision Making - Medical Decision Making EKG shows a sinus rhythm at 66 bpm WA interval 238 QRS is 90 QT interval 370 QTC is 392. Patient's EKG shows no ST segment elevation or depression. Was pt. sent in by a medical professional or institution (, PA, CLINICAL TEAM LEAD, urgent care, hospital, or [facility]...) When possible be specific @ -No Did you speak to anyone other than the patient for history (EMS, parent, family, police, friend...)? What history was obtained from this source @ - gave quite a bit of the history since patient was so anxious Did you review nursing and triage notes (agree or disagree)? Why? @ -I reviewed and agree with nursing and triage notes Were old charts reviewed (outside hosp., previous admission, EMS record, old EKG, old radiological studies, urgent care reports/EKG's, [facility] records)? Report findings @ -I reviewed old charts old lab work on this patient Differential Diagnosis (chest pain, altered mental status, abdominal pain women, abdominal pain men, vaginal bleeding, weakness, fever, dyspnea, syncope, headache, dizziness, GI bleed, back pain, seizure, CVA, palpatations, mental health, musculoskeletal)? @ -Differential Dyspnea: Coronary syndrome, arrhythmia, tamponade, asthma, COPD, pulmonary embolism, pneumonia, pneumothorax, pulmonary effusion, anaphylaxis, diabetic ketoacidosis, flailed chest, pulmonary contusion, diaphragmatic rupture, anemia, neuromuscular, this is not meant to be an all-inclusive list. EKG interpreted by me (3pts min.). @ -As above X-rays interpreted by me (1pt min.). @ -X-ray shows right-sided effusion with infiltrate consistent with pneumonia CT interpreted by me (1pt min.). @ -None done U/S interpreted by me (1pt. min.). @ -None done What testing was considered but not performed or refused? (CT, X-rays, U/S, labs)? Why? @ -None What meds were considered but not given or refused? Why? @ -None Did you discuss the management of the patient with other professionals (professionals i.e. , PA, CLINICAL TEAM LEAD, lab, RT, psych nurse, social science professor, construction quality control manager, teacher, dog control officer, casework specialist)? Give summary @ -I spoke with son physicians they agreed to admit the patient admitted the patient I wrote admitting orders Was smoking cessation discussed for >3mins.? @ -No Was critical care preformed (if so, how long)? @ -No Were there social determinants of health that impacted care today? How? (Homelessness, low income, unemployed, alcoholism, drug addiction, transportation, low edu. Level, literacy, decrease access to med. care, half-way, rehab)? @ -No Was there de-escalation of care discussed even if they declined (Discuss DNR or withdrawal of care, Hospice)? DNR status @ -No What co-morbidities impacted this encounter? (DM, HTN, Smoking, COPD, CAD, Cancer, CVA, ARF, Chemo, Hep., AIDS, mental health diagnosis, sleep apnea, morbid obesity)? @ -None Was patient admitted / discharged? Hospital course, mention meds given and route, prescriptions, significant lab abnormalities, going to OR and other pertinent info. @ -Patient had pneumonia on the x-ray patient received antibiotics in the emergency department and patient will be admitted to [facility] physician's with a consult to Dr. Harris oncology and pulmonology. Patient was diagnosed with pneumonia at 11:15 Undiagnosed new problem with uncertain prognosis? @ -No Drug Therapy requiring intensive monitoring for toxicity (Heparin, Nitro, Insulin, Cardizem)? @ -No Were any procedures done? @ -No Diagnosis/symptom? @ -Pneumonia Acute, or Chronic, or Acute on Chronic? @ -Acute Uncomplicated (without systemic symptoms) or Complicated (systemic symptoms)? @ -Complicated Side effects of treatment? @ -No Exacerbation, Progression, or Severe Exacerbation? @ -No Poses a threat to life or bodily function? How? (Chest pain, [place], [place], pneumonia, PE, COPD, DKA, ARF, appy, cholecystitis, CVA, Diverticulitis, Homicidal, Suicidal, threat to staff... and all critical care pts) @ -Yes this could lead to hypoxia and end organ dysfunction Diagnosis/symptom? @ -History of lung cancer Acute, or Chronic, or Acute on Chronic? @ -Chronic Uncomplicated (without systemic symptoms) or Complicated (systemic symptoms)? @ -Complicated Side effects of treatment? @ -none Exacerbation, Progression, or Severe Exacerbation] @ -no Poses a threat to life or bodily function? @ -no - Lab Data Result diagrams: 03/22/23 08:37 03/22/23 08:37 Lab Results 03/22/23 03/22/23 03/22/23 Range/Units 08:37 08:37 08:37 WBC 15.8 H (3.8-10.6) k/uL RBC 4.70 (3.80-5.40) m/uL Hgb 14.2 (11.4-16.0) gm/dL Hct 44.3 (34.0-46.0) % MCV 94.1 (80.0-100.0) fL MCH 30.3 (25.0-35.0) pg MCHC 32.2 (31.0-37.0) g/dL RDW 13.5 (11.5-15.5) % Plt Count 284 (150-450) k/uL MPV 7.7 Neutrophils % (Manual) 62 % Band Neuts % (Manual) 10 % Lymphocytes % (Manual) 2 % Monocytes % (Manual) 11 % Eosinophils % (Manual) 16 % Neutrophils # (Manual) 11.30 H (1.3-7.7) k/uL Lymphocytes # (Manual) 0.32 L (1.0-4.8) k/uL Monocytes # (Manual) 1.74 H (0-1.0) k/uL Eosinophils # (Manual) 2.53 H (0-0.7) k/uL Nucleated RBCs 0 (0-0) /100 WBC Manual Slide Review Performed Toxic Vacuolation Present Hypochromasia Slight VBG pH (7.31-7.41) VBG pCO2 (37-51) mmHg VBG HCO3 (24-28) mmol/L Sodium 136 L (137-145) mmol/L Potassium 4.5 (3.5-5.1) mmol/L Chloride 96 L (98-107) mmol/L Carbon Dioxide 37 H (22-30) mmol/L Anion Gap 3 mmol/L BUN 12 (7-17) mg/dL Creatinine 0.62 (0.52-1.04) mg/dL Est GFR (CKD-EPI)AfAm >90 (>60 ml/min/1.73 sqM) Est GFR (CKD-EPI)NonAf 86 (>60 ml/min/1.73 sqM) Glucose 105 H (74-99) mg/dL POC Glucose (mg/dL) (70-110) mg/dL POC Glu [facility] Specialist ID Calcium 8.8 (8.4-10.2) mg/dL Total Bilirubin 0.5 (0.2-1.3) mg/dL AST 29 (14-36) U/L ALT 17 (4-34) U/L Alkaline Phosphatase 93 (38-126) U/L Troponin I <0.012 (0.000-0.034) ng/mL Total Protein 5.8 L (6.3-8.2) g/dL Albumin 3.1 L (3.5-5.0) g/dL Urine Color Urine Appearance (Clear) Urine pH (5.0-8.0) Ur Specific [place] (1.001-1.035) Urine Protein (Negative) Urine Glucose (UA) (Negative) Urine Ketones (Negative) Urine Blood (Negative) Urine Nitrite (Negative) Urine Bilirubin (Negative) Urine Urobilinogen (<2.0) mg/dL Ur Leukocyte Esterase (Negative) Urine RBC (0-5) /hpf Urine WBC (0-5) /hpf Ur Squamous Epith Cells (0-4) /hpf Valproic Acid 44.1 ug/mL 03/22/23 03/22/23 03/22/23 Range/Units 09:21 09:41 09:49 WBC (3.8-10.6) k/uL RBC (3.80-5.40) m/uL Hgb (11.4-16.0) gm/dL Hct (34.0-46.0) % MCV (80.0-100.0) fL MCH (25.0-35.0) pg MCHC (31.0-37.0) g/dL RDW (11.5-15.5) % Plt Count (150-450) k/uL MPV Neutrophils % (Manual) % Band Neuts % (Manual) % Lymphocytes % (Manual) % Monocytes % (Manual) % Eosinophils % (Manual) % Neutrophils # (Manual) (1.3-7.7) k/uL Lymphocytes # (Manual) (1.0-4.8) k/uL Monocytes # (Manual) (0-1.0) k/uL Eosinophils # (Manual) (0-0.7) k/uL Nucleated RBCs (0-0) /100 WBC Manual Slide Review Toxic Vacuolation Hypochromasia VBG pH 7.34 (7.31-7.41) VBG pCO2 68 H (37-51) mmHg VBG HCO3 36 H (24-28) mmol/L Sodium (137-145) mmol/L Potassium (3.5-5.1) mmol/L Chloride (98-107) mmol/L Carbon Dioxide (22-30) mmol/L Anion Gap mmol/L BUN (7-17) mg/dL Creatinine (0.52-1.04) mg/dL Est GFR (CKD-EPI)AfAm (>60 ml/min/1.73 sqM) Est GFR (CKD-EPI)NonAf (>60 ml/min/1.73 sqM) Glucose (74-99) mg/dL POC Glucose (mg/dL) 106 (70-110) mg/dL POC Glu Service Center Specialist ID Nicholas, Beatriz Calcium (8.4-10.2) mg/dL Total Bilirubin (0.2-1.3) mg/dL AST (14-36) U/L ALT (4-34) U/L Alkaline Phosphatase (38-126) U/L Troponin I (0.000-0.034) ng/mL Total Protein (6.3-8.2) g/dL Albumin (3.5-5.0) g/dL Urine Color Yellow Urine Appearance Clear (Clear) Urine pH 6.0 (5.0-8.0) Ur Specific [place] 1.009 (1.001-1.035) Urine Protein Negative (Negative) Urine Glucose (UA) Negative (Negative) Urine Ketones Negative (Negative) Urine Blood Moderate H (Negative) Urine Nitrite Negative (Negative) Urine Bilirubin Negative (Negative) Urine Urobilinogen <2.0 (<2.0) mg/dL Ur Leukocyte Esterase Negative (Negative) Urine RBC 27 H (0-5) /hpf Urine WBC 7 H (0-5) /hpf Ur Squamous Epith Cells 3 (0-4) /hpf Valproic Acid ug/mL Disposition Clinical Impression: Pneumonia, History of lung cancer Disposition: ADMITTED IP TO THIS HOSP Referrals: Yao Haywood MD [Primary Care Provider] - 1-2 days Time of Disposition: 11:23
[2023-03-22 09:21] LABS: HCT 44.3 % (34.0-46.0); HGB 14.2 gm/dL (11.4-16.0); Hypochromasia Slight; MCH 30.3 pg (25.0-35.0); MCHC 32.2 g/dL (31.0-37.0); MCV 94.1 fL (80.0-100.0); Mean Platelet Volume 7.7; Platelet Count 284 k/uL (150-450); RDW 13.5 % (11.5-15.5); WBC 15.8 k/uL (3.8-10.6)
[2023-03-22 09:23] LABS: Glucose,Whole Blood 106 mg/dL (70-110)
[2023-03-22 09:44] LABS: ALT 17 U/L (4-34); AST 29 U/L (14-36); African American GFR (CKD) >90 (>60 ml/min/1.73 sqM); Albumin 3.1 g/dL (3.5-5.0); Alkaline Phosphatase 93 U/L (38-126); Anion Gap 3 mmol/L; Blood Urea Nitrogen 12 mg/dL (7-17); Calcium 8.8 mg/dL (8.4-10.2); Carbon Dioxide 37 mmol/L (22-30); Chloride 96 mmol/L (98-107); Glucose 105 mg/dL (74-99); Non-African American GFR(CKD) 86 (>60 ml/min/1.73 sqM); Potassium 4.5 mmol/L (3.5-5.1); Sodium 136 mmol/L (137-145); Total Bilirubin 0.5 mg/dL (0.2-1.3); Total Protein 5.8 g/dL (6.3-8.2)
[2023-03-22 09:48] LABS: Band Neutrophils % 10 %; Eosinophils # (M) 2.53 k/uL (0-0.7); Lymphocytes # (M) 0.32 k/uL (1.0-4.8); Monocytes # (M) 1.74 k/uL (0-1.0); Neutrophils % (M) 62 %; Nucleated Red Blood Cells 0 /100 WBC (0-0); Total Cells Counted 200
[2023-03-22 09:49] LABS: Valproic Acid (Depakene) 44.1 ug/mL
[2023-03-22 09:50] LABS: Toxic Vacuolation Present
[2023-03-22 10:04] LABS: VBG PH 7.34 (7.31-7.41)
[2023-03-22 10:05] LABS: Appearance,Urine Clear (Clear); Bilirubin,Urine Negative (Negative); Blood,Urine Moderate (Negative); Color,Urine Yellow; Glucose,Urine (UA) Negative (Negative); Ketones,Urine Negative (Negative); Leukocyte Esterase,Urine Negative (Negative); Nitrite,Urine Negative (Negative); Protein,Urine Negative (Negative); RBC,Urine 27 /hpf (0-5); Specific Gravity,Urine 1.009 (1.001-1.035); Squamous Epithelial Cell,Urine 3 /hpf (0-4); Urobilinogen,Urine <2.0 mg/dL (<2.0); WBC,Urine 7 /hpf (0-5)
--- NOTE | 2023-03-22 10:12 | CT ---
EXAMINATION TYPE: CT brain wo con CT DLP: 1100.4 mGycm, Automated exposure control for dose reduction was used. DATE OF EXAM: 03/22/2023 9:56 AM COMPARISON: CT brain 10/22/2020, MRI brain 09/23/2022 CLINICAL INDICATION:Female, 82 years old with history of Altered mental status, ams TECHNIQUE: Brain: Multiple axial CT images of the brain were obtained without IV contrast. Coronal and sagittal reformats reviewed. FINDINGS: Brain: Extra-axial spaces: No abnormal extra-axial fluid collections. Ventricular system: Within normal limits Cerebral parenchyma: Cerebral atrophy. No acute intraparenchymal hemorrhage or mass effect. The reyna -white junction is well differentiated. Scattered hypoattenuating areas are seen within the white mat ter. Cerebellum: Unremarkable. Mass effect: No evidence of midline shift. Intracranial vasculature: Atherosclerotic calcifications of the intracranial vessels. Soft tissues: Normal. Calvarium/osseous structures: No depressed skull fracture. Paranasal sinuses and mastoid air cells: Mastoid air cells are clear. Minimal because of thickening o f the left ethmoid sinus. Visualized orbits: Bilateral aphakia IMPRESSION: 1. No acute intracranial process. 2. Nonspecific white matter changes, likely secondary to chronic small vessel ischemic disease.
--- NOTE | 2023-03-22 10:18 | XR ---
EXAMINATION TYPE: XR chest 2V DATE OF EXAM: 03/22/2023 10:12 AM COMPARISON: Chest radiograph 02/27/2023 TECHNIQUE: XR chest 2V Frontal and lateral views of the chest. CLINICAL INDICATION:Female, 82 years old with history of altered mental status; FINDINGS: Lungs/Pleura: Hyperinflation. Patchy consolidation with effusion within the right mid to lower lung. Similar to prior exam. No pneumothorax. Pulmonary vascularity: Unremarkable. Heart/mediastinum: Cardiomediastinal silhouette is unremarkable. Atherosclerotic calcifications are seen in the aorta. Musculoskeletal: No acute osseous pathology. IMPRESSION: Overall similar examination with background COPD changes with right pleural effusion and patchy conso lidation concerning for pneumonia.
[2023-03-22] MEDS ORDERED: PNEUMONIA PROTOCOL UTILIZED 1 EACH MISC PO PRN (11:23)
[2023-03-22] MEDS ORDERED: PIPERACILLIN-TAZOBACTAM 3.375 GM in SODIUM CHLORIDE 0.9% 100 ML IVPB STA (11:23)
[2023-03-22] MEDS ORDERED: AZITHROMYCIN 500 MG in SODIUM CHLORIDE 0.9% 250 ML IVPB STA (11:23)
[2023-03-22] MEDS: ALBUTEROL NEBULIZED 2.5 MG/3 ML INHALATION SCH ×3 (11:56→20:52)
[2023-03-22] MEDS: ALPRAZolam 0.5 MG TAB PO PRN ×2 (13:42→18:48)
[2023-03-22] MEDS ORDERED: NALOXONE 0.4 MG/ML 1 ML VIAL IV PRN (16:12)
[2023-03-22] MEDS ORDERED: ONDANSETRON 4 MG/2 ML VIAL IVP PRN (16:12)
--- NOTE | 2023-03-22 16:20 | P.HPIM ---
History of Present Illness H&P Date: 03/22/23 Patient is an 82-year-old female with a history of COPD with chronic hypoxic respiratory failure on 4 L nasal cannula, small cell lung cancer in 2016 treated with chemo/radiation, chronic right pleural effusion with pleurx cath in for the last 2 years, hypertension, and dyslipidemia who presented with complaints of shortness of breath. Of note she was hospitalized here from 02/26/23 through 03/03/23 for COPD exacerbation and right pleural effusion where she was evaluated by CT surgery who did not recommend any intervention at this time. On arrival to the emergency department here she was satting 82% on 3 L nasal cannula. Initial laboratory analysis was remarkable for white blood cell count 15.8, sodium 136, chloride 96, carbon dioxide 37, glucose 105. VBG showed pH is 7.34 pCO2 of 68 and a bicarb of dirty 6. Valproic acid level was 44.1. Lactic acid was normal. Patient seen and examined at bedside. She came into day because she felt confused and like nothing was working. She felt very anxious which is very abnormal for her. Her oxygen was down to 85% on 4L at home. Typically can get up to 91%. She is having some increasing shortness of breath and a productive cough with thick yellow/green phlegm. She has been emptying her plerux cath every 3 days and has been getting 300 ml of fluid. For the last few weeks she has been feeling really fatigued and like she can't do much. She reports a poor aappetite with 5-6 pound weight loss. She is struggling with depression and anxiety due to her inability inability to take care of her ADLS. She does follow with psych and her depakote and abilify was increased 1 week ago, which she says is not helping. She feels as though her anxiety is bad because she just can't function anymore. She has not had a formal appointment with pulmonary or infectious disease after discharge from the hospital. She did complete her course of antibiotics (augmentin) Vital signs reviewed General: nontoxic, no distress, appears at stated age Derm: warm, dry Eyes: EOMI, no lid lag, anicteric sclera, pupils equal round reactive to light ENT: Nose and ears atraumatic, no thrush, no pharyngeal erythema Cardiovascular: S1S2 reg, no murmur, positive posterior tibial pulse bilateral, no edema, capillary refill less than 2 seconds Lungs: ronchi right base, no wheeze, no accessory muscle use Abdominal: soft, nontender to palpation, no guarding, no appreciable organomegaly, normal bowel sounds Ext: no gross muscle atrophy, no contractures Neuro: CN II-XII grossly intact, no focal neuro deficits. Psych: Alert, oriented, appears anxious and tearful Assessment/Plan: Dyspnea, recent infected plerual effusion Acute on chronic hypoxic respiratory failrue Debility Moderate protein calorie malnutrition COPD with exacerbation - discussed with ED provider and admit to inpatient - does not appear to be COPD exacerbation as patient has good air movement and no wheezing - possible recurrently PNA/ infection of plueral fluid - Zosyn 3.375 g q 8 hours - check COVID/ - check blood cultures, consider repeat culture from pleurx cath - consult pulm and infectious disease - check procalcitonin - consult dietitian, ensure - PT/OT recs - consider CT chest - repeat CBC and BMP in AM - DuoNeb's every 4 hours and when necessary, Pulmicort 1 mg twice a day, formoterol 20 mcg BID Chronic: HTN HLD Hypothyroidism Small cell lung cancer status post chemo and radiation in 2016, in remission Imaging: as per HPI Data Review: as per HPI The patient is admitted with an anticipated greater than 2 midnight stay for evaluation of Dyspnea. Surrogate decision-maker: CODE STATUS: Okay with elective intubation if we feel she will improve, does not want resuscitation if her hear stops. DVT prophylaxis: Lovenox Anticipated discharge date: Pending Clinical Course Anticipated discharge place: Pending Clinical Course This dictation was prepared using [employer] voice recognition software. Though every attempt is made to correct errors during dictation some may still exist. 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 History of Any Multi-Drug Resistant Organisms: None Reported Past Surgical History: Adenoidectomy, Appendectomy, Breast Surgery, Hysterectomy, Tonsillectomy Additional Past Surgical History / Comment(s): Bronchoscopy/biopsy, thoracentesis, L pyeloplasty/JJ cath, L breast core bx x3-benign, EGD, colonoscopy/benign polypectomy. Right-sided Pleurx catheter placement Past Anesthesia/Blood Transfusion Reactions: Postoperative Nausea & Vomiting (PONV) Additional Past Anesthesia/Blood Transfusion Reaction / Comment(s): Pt has clausterphobia Past Psychological History: Anxiety, Bipolar, Depression Additional Psychological History / Comment(s): Pt resides with her spouse. She has home oxygen/nebulizer. She drives. She just finished with [facility] [facility]. Smoking Status: Former smoker Past Alcohol Use History: None Reported Additional Past Alcohol Use History / Comment(s): Pt quit smoking 2005, started smoking age 17, 1ppd. 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 Past Drug Use History: None Reported - Past Family History Father Family Medical History: CVA/TIA Additional Family Medical History / Comment(s): Father of a cerebral hemorrhage at age 48yrs. Mother Family Medical History: Cancer Additional Family Medical History / Comment(s): Mother of lung cancer. Sister(s) Family Medical History: Cancer Additional Family Medical History / Comment(s): Sister of lung cancer Medications and Allergies Home Medications Medication Instructions Recorded Confirmed Type Albuterol Sulfate [Ventolin HFA] 2 puff INHALATION RT-Q4H PRN 09/10/20 03/22/23 History Atorvastatin [Lipitor] 20 mg PO HS 30 Days tab 02/14/21 03/22/23 Rx atenoloL [Tenormin] 50 mg PO DAILY 30 Days tab 02/14/21 03/22/23 Rx ARIPiprazole [Abilify] 4 mg PO DAILY 03/02/21 03/22/23 History Aspirin EC [Ecotrin Low Dose] 81 mg PO HS 02/26/23 03/22/23 History Divalproex Sodium 250 mg PO BID 02/26/23 03/22/23 History Furosemide [Lasix] 20 - 40 mg PO DAILY PRN 02/26/23 03/22/23 History Levothyroxine Sodium [Synthroid] 100 mcg PO DAILY 02/26/23 03/22/23 History Mirtazapine [Remeron] 15 mg PO HS 02/26/23 03/22/23 History Sertraline [Zoloft] 50 mg PO DAILY 02/26/23 03/22/23 History Acetaminophen Tab [Tylenol] 650 mg PO Q6HR PRN tab 02/28/23 03/22/23 Rx Budesonide-Formot 160-4.5 Mcg 2 puff INHALATION RT-BID #1 each 02/28/23 03/22/23 Rx [Symbicort 160-4.5 Mcg Inhaler] Allergies Allergy/AdvReac Type Severity Reaction Status Date / Time latex Allergy Lip Verified 03/22/23 13:47 swelling after dental procedure Physical Exam Osteopathic Statement: *. No significant issues noted on an osteopathic structural exam other than those noted in the History and Physical/Consult. Vitals: Vital Signs Temp Pulse Pulse Resp BP BP Pulse Ox 03/22/23 15:34 92 03/22/23 15:25 88 03/22/23 13:26 97.3 F L 88 20 113/69 87 L 03/22/23 12:20 98.0 F 81 18 93/52 91 L 03/22/23 12:06 82 03/22/23 11:58 80 03/22/23 10:55 71 18 93/56 90 L 03/22/23 08:26 95 03/22/23 08:07 98.1 F 76 20 114/73 82 L Intake and Output 03/22/23 03/22/23 03/22/23 06:59 14:59 22:59 Other: Weight 66.678 kg Results CBC & Chem 7: 03/22/23 08:37 03/22/23 08:37 Labs: Abnormal Lab Results - Last 24 Hours (Table) 03/22/23 03/22/23 03/22/23 Range/Units 08:37 08:37 09:41 WBC 15.8 H (3.8-10.6) k/uL Neutrophils # (Manual) 11.30 H (1.3-7.7) k/uL Lymphocytes # (Manual) 0.32 L (1.0-4.8) k/uL Monocytes # (Manual) 1.74 H (0-1.0) k/uL Eosinophils # (Manual) 2.53 H (0-0.7) k/uL VBG pCO2 68 H (37-51) mmHg VBG HCO3 36 H (24-28) mmol/L Sodium 136 L (137-145) mmol/L Chloride 96 L (98-107) mmol/L Carbon Dioxide 37 H (22-30) mmol/L Glucose 105 H (74-99) mg/dL Total Protein 5.8 L (6.3-8.2) g/dL Albumin 3.1 L (3.5-5.0) g/dL Urine Blood (Negative) Urine RBC (0-5) /hpf Urine WBC (0-5) /hpf 03/22/23 Range/Units 09:49 WBC (3.8-10.6) k/uL Neutrophils # (Manual) (1.3-7.7) k/uL Lymphocytes # (Manual) (1.0-4.8) k/uL Monocytes # (Manual) (0-1.0) k/uL Eosinophils # (Manual) (0-0.7) k/uL VBG pCO2 (37-51) mmHg VBG HCO3 (24-28) mmol/L Sodium (137-145) mmol/L Chloride (98-107) mmol/L Carbon Dioxide (22-30) mmol/L Glucose (74-99) mg/dL Total Protein (6.3-8.2) g/dL Albumin (3.5-5.0) g/dL Urine Blood Moderate H (Negative) Urine RBC 27 H (0-5) /hpf Urine WBC 7 H (0-5) /hpf Thrombosis Risk Factor Assmnt - Choose All That Apply Each Factor Represents 1 point: Abnormal pulmonary function (COPD) Other Risk Factors: Yes Each Risk Factor Represents 3 Points: Age 75 years or older, History of DVT/PE Thrombosis Risk Factor Assessment Total Risk Factor Score: 7 Thrombosis Risk Factor Assessment Level: High Risk
[2023-03-22] MEDS: SODIUM CHLORIDE 0.9% 1,000 ML IV SCH (17:45)
[2023-03-22] MEDS: BUDESONIDE 1 MG/2 ML NEBU INHALATION SCH (20:55)
[2023-03-22] MEDS: FORMOTEROL FUMARATE 20 MCG/2 ML NEBU INHALATION SCH (20:55)
[2023-03-22] MEDS: MIRTAZAPINE 15 MG TAB PO SCH (20:58)
[2023-03-22] MEDS: ATORVASTATIN 20 MG TAB PO SCH (20:58)
[2023-03-22] MEDS: DIVALPROEX 250 MG TABLET.DR PO SCH (20:58)
[2023-03-22] MEDS: MELATONIN 3 MG TABLET PO PRN (20:58)
[2023-03-22] MEDS: ASPIRIN 81 MG PO SCH (20:58)
[2023-03-22] MEDS: PIPERACILLIN-TAZOBACTAM 3.375 GM in SODIUM CHLORIDE 0.9% 100 ML IVPB SCH (20:59)
--- NOTE | 2023-03-22 21:49 | P.CONS ---
History of Present Illness - Reason for Consult Consult date: 03/22/23 Pneumonia Requesting physician: Fareed Collins - Chief Complaint Shortness of breath x few days - History of Present Illness Patient is a 82-year-old female with a past medical history significant for hypertension hyperlipidemia osteoarthritis DVT COPD small cell lung cancer did have history of right-sided effusion status post thoracocentesis patient presenting to the hospital for evaluation of increasing shortness of breath that apparently has been getting worse for the last few days patient also complaining of feeling anxious and somewhat agitated and not sure what to do next patient denies any headache or URI symptoms she did have a cough moderate intensity with some brownish sputum no hemoptysis no pleuritic chest pain did have associated shortness of breath no nausea vomiting no abdominal pain or any diarrhea with this and the patient was evaluated on presentation to the hospital the patient was afebrile and no fever has been recorded subsequently patient was hypoxic with O2 sats of 82% on room air requiring supplemental oxygen currently on 5 L nasal cannula oxygen patient did have a white count of 15.8 with a left shift creatinine was normal liver enzymes are normal urine shows mostly hematuria and 7 WBC COVID testing was negative patient did have a CT of the brain that was negative for any bleed chest x-ray right effusion and consoli dation concerning for pneumonia, patient did receive Rocephin and Zithromax subsequently started on Zosyn admitted to hospital infectious disease was consulted for further management of antibiotic therapy Review of Systems Positive point and negatives has been mentioned in the HPI, complete review of systems was performed and all other systems are negative Past Medical History Past Medical History: Atrial Flutter, Cancer, COPD, Deep Vein Thrombosis (DVT), Hyperlipidemia, Hypertension, Osteoarthritis (OA), Pneumonia, Renal Disease, Thyroid Disorder Additional Past Medical History / Comment(s): 2016 Small cell L lung cancer treated with chemoradiation therapy, recent right-sided pleural effusions with thoracentesis, home oxygen at 2L/NC ATC, dysphagia/ aspiration back in 2017 following her cancer radiation treatments, 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 History of Any Multi-Drug Resistant Organisms: None Reported Past Surgical History: Adenoidectomy, Appendectomy, Breast Surgery, Hysterectomy, Tonsillectomy Additional Past Surgical History / Comment(s): Bronchoscopy/biopsy, thoracentesis, L pyeloplasty/JJ cath, L breast core bx x3-benign, EGD, colonoscopy/benign polypectomy. Right-sided Pleurx catheter placement Past Anesthesia/Blood Transfusion Reactions: Postoperative Nausea & Vomiting (PONV) Additional Past Anesthesia/Blood Transfusion Reaction / Comm: Pt has clausterphobia Past Psychological History: Anxiety, Bipolar, Depression Smoking Status: Former smoker Past Alcohol Use History: None Reported Past Drug Use History: None Reported - Past Family History Father Family Medical History: CVA/TIA Additional Family Medical History / Comment(s): Father of a cerebral hemorrhage at age 48yrs. Mother Family Medical History: Cancer Additional Family Medical History / Comment(s): Mother of lung cancer. Sister(s) Family Medical History: Cancer Additional Family Medical History / Comment(s): Sister of lung cancer Medications and Allergies Home Medications Medication Instructions Recorded Confirmed Type Albuterol Sulfate [Ventolin HFA] 2 puff INHALATION RT-Q4H PRN 09/10/20 04/02/23 History Atorvastatin [Lipitor] 20 mg PO HS 30 Days tab 02/14/21 04/02/23 Rx atenoloL [Tenormin] 50 mg PO DAILY 30 Days tab 02/14/21 04/02/23 Rx ARIPiprazole [Abilify] 4 mg PO DAILY 03/02/21 04/02/23 History Aspirin EC [Ecotrin Low Dose] 81 mg PO HS 02/26/23 04/02/23 History Divalproex Sodium 250 mg PO BID 02/26/23 04/02/23 History Furosemide [Lasix] 20 - 40 mg PO DAILY PRN 02/26/23 04/02/23 History Levothyroxine Sodium [Synthroid] 100 mcg PO DAILY 02/26/23 04/02/23 History Mirtazapine [Remeron] 15 mg PO HS 02/26/23 04/02/23 History Sertraline [Zoloft] 50 mg PO DAILY 02/26/23 04/02/23 History Acetaminophen Tab [Tylenol] 650 mg PO Q6HR PRN tab 02/28/23 04/02/23 Rx Budesonide-Formot 160-4.5 Mcg 2 puff INHALATION RT-BID #1 each 02/28/23 04/02/23 Rx [Symbicort 160-4.5 Mcg Inhaler] Allergies Allergy/AdvReac Type Severity Reaction Status Date / Time latex Allergy Lip Verified 03/22/23 13:47 swelling after dental procedure Physical Exam Vitals: Vital Signs Temp Pulse Resp BP Pulse Ox 03/22/23 10:55 71 18 93/56 90 L 03/22/23 08:26 95 03/22/23 08:07 98.1 F 76 20 114/73 82 L Intake and Output 03/21/23 03/22/23 03/22/23 22:59 06:59 14:59 Other: Weight 66.678 kg GENERAL DESCRIPTION: Elderly female lying in bed, no distress. No tachypnea or accessory muscle of respiration use. HEENT: Shows Pallor , no scleral icterus. Oral mucous membrane is dry. No pharyngeal erythema or thrush NECK: Trachea central, no thyromegaly. LUNGS: Unlabored breathing. Coarse breath sounds bilaterally HEART: S1, S2, regular rate and rhythm. No loud murmur ABDOMEN: Soft, no tenderness , guarding or rigidity, no organomegaly EXTREMITIES: No edema of feet. SKIN: No rash, no masses palpable. NEUROLOGICAL: The patient is awake, alert, oriented x3, mood and affect normal. Results CBC & Chem 7: 04/01/23 05:25 04/01/23 05:25 Labs: Abnormal Lab Results - Last 24 Hours (Table) 03/22/23 03/22/23 03/22/23 Range/Units 08:37 08:37 09:41 WBC 15.8 H (3.8-10.6) k/uL Neutrophils # (Manual) 11.30 H (1.3-7.7) k/uL Lymphocytes # (Manual) 0.32 L (1.0-4.8) k/uL Monocytes # (Manual) 1.74 H (0-1.0) k/uL Eosinophils # (Manual) 2.53 H (0-0.7) k/uL VBG pCO2 68 H (37-51) mmHg VBG HCO3 36 H (24-28) mmol/L Sodium 136 L (137-145) mmol/L Chloride 96 L (98-107) mmol/L Carbon Dioxide 37 H (22-30) mmol/L Glucose 105 H (74-99) mg/dL Total Protein 5.8 L (6.3-8.2) g/dL Albumin 3.1 L (3.5-5.0) g/dL Urine Blood (Negative) Urine RBC (0-5) /hpf Urine WBC (0-5) /hpf 03/22/23 Range/Units 09:49 WBC (3.8-10.6) k/uL Neutrophils # (Manual) (1.3-7.7) k/uL Lymphocytes # (Manual) (1.0-4.8) k/uL Monocytes # (Manual) (0-1.0) k/uL Eosinophils # (Manual) (0-0.7) k/uL VBG pCO2 (37-51) mmHg VBG HCO3 (24-28) mmol/L Sodium (137-145) mmol/L Chloride (98-107) mmol/L Carbon Dioxide (22-30) mmol/L Glucose (74-99) mg/dL Total Protein (6.3-8.2) g/dL Albumin (3.5-5.0) g/dL Urine Blood Moderate H (Negative) Urine RBC 27 H (0-5) /hpf Urine WBC 7 H (0-5) /hpf Assessment and Plan (1) Pneumonia Status: Acute Priority: High Code(s): J18.9 - PNEUMONIA, UNSPECIFIED ORGANISM SNOMED Code(s): 360173649 Plan: 1patient presented to hospital with shortness of breath did have a cough productive sputum in addition to the anxiety and some mental status changes chest x-ray with right-sided effusion and consolidation concerning for pneumonia possible gram-negative as the patient has been in and out of hospital recently. 2we will obtain a sputum for Gram stain and culture check a CRP and a procalcitonin level. 3continue with Zosyn 3.375 g every 8 hours while waiting for the work-up to be completed and cultures to be finalized. at the bedside multiple questions concerns were answered. We will follow on clinical condition and cultures to further adjust medication if needed Thank you for this consultation we will follow the patient along with you Dictation was produced using [employer] dictation software. please excuse any grammatical, word or spelling errors. Time with Patient: Greater than 30
[2023-03-23] MEDS: PIPERACILLIN-TAZOBACTAM 3.375 GM in SODIUM CHLORIDE 0.9% 100 ML IVPB SCH (03:40)
[2023-03-23] MEDS: ALPRAZolam 0.5 MG TAB PO PRN ×3 (04:44→20:16)
--- NOTE | 2023-03-23 06:38 | XR ---
EXAMINATION TYPE: XR chest 2V DATE OF EXAM: 03/23/2023 6:31 AM COMPARISON: Chest radiographs from 03/23/2023 TECHNIQUE: XR chest 2V Frontal and lateral views of the chest. CLINICAL INDICATION:Female, 82 years old with history of pneumonia; FINDINGS: Lungs/Pleura: Hyperinflation. Patchy consolidation with effusion within the right mid to lower lung. Similar to prior exam. No pneumothorax. Pulmonary vascularity: Unremarkable. Heart/mediastinum: Cardiomediastinal silhouette is unremarkable. Atherosclerotic calcifications are seen in the aorta. Musculoskeletal: No acute osseous pathology. IMPRESSION: Overall similar examination with background COPD changes with right pleural effusion and patchy conso lidation concerning for pneumonia.
[2023-03-23] MEDS: ALBUTEROL NEBULIZED 2.5 MG/3 ML INHALATION SCH ×5 (08:01→20:28)
[2023-03-23] MEDS: BUDESONIDE 1 MG/2 ML NEBU INHALATION SCH ×2 (08:01→20:26)
[2023-03-23] MEDS: FORMOTEROL FUMARATE 20 MCG/2 ML NEBU INHALATION SCH ×2 (08:01→20:26)
[2023-03-23] MEDS: LEVOTHYROXINE 100 MCG TAB PO SCH (08:16)
[2023-03-23] MEDS: SERTRALINE 50 MG TAB PO SCH (08:16)
[2023-03-23] MEDS: DIVALPROEX 250 MG TABLET.DR PO SCH ×2 (08:16→20:16)
[2023-03-23] MEDS: atenoloL 50 MG TAB PO SCH (08:16)
[2023-03-23] MEDS: ARIPiprazole 2 MG TAB PO SCH (08:16)
[2023-03-23] MEDS: ENOXAPARIN 40 MG/0.4 ML SYRINGE SQ SCH (08:16)
[2023-03-23 09:42] LABS: BUN/Creat Ratio 10.25 Ratio (12.00-20.00); Blood Urea Nitrogen 8.2 mg/dL (9.0-27.0); Calcium 8.5 mg/dL (8.7-10.3); Carbon Dioxide 29.3 mmol/L (21.6-31.8); Chloride 100 mmol/L (96-109); Glucose 113 mg/dL (70-110); Potassium 4.3 mmol/L (3.5-5.5); Sodium 142 mmol/L (135-145)
[2023-03-23 10:48] LABS: HCT 43.1 % (37.2-46.3); HGB 13.6 d/dL (12.0-15.0); MCH 30.1 pg (27.0-32.0); MCHC 31.6 d/dL (32.0-37.0); MCV 95.4 FL (80.0-97.0); Mean Platelet Volume 9.5 FL (9.5-12.2); NRBC Per 100 WBC 0 X 10*3/uL (0.00-0.01); Platelet Count 309 X 10*3/uL (140-440); RBC 4.52 X 10*6/uL (4.10-5.20); RDW 13.6 % (11.5-14.5); WBC 17.73 X 10*3/uL (4.50-10.00)
--- NOTE | 2023-03-23 10:51 | P.CNPUL ---
History of Present Illness Consult date: 03/23/23 Requesting physician: Radha Shoemaker Reason for consult: pleural effusion, abnormal CXR/CT Chief complaint: Shortness of breath, anxiety History of present illness: This is a pleasant 82-year-old female with a past medical history significant for COPD/emphysema, chronic hypoxemic respiratory failure on 3 L/m nasal cannula 24/02, left lung squamous cell carcinoma status post chemoradiation, recurrent right-sided pleural effusions with Pleurx catheter inserted December 2020. She also has history of hypertension, hyperlipidemia, hypothyroidism, atrial fibrillation, and right upper extremity DVT. If she was just discharged on 03/03/2023 following concerns regarding bloody fluid from her Pleurx catheter. She presented here to the emergency room yesterday with complaints of increasing anxiety and some altered mental status according to her . Computed tomography scan of the brain revealed no acute intracranial process. Her Pleurx catheter is drained every third day with about 300 ML's of fluid returned. Chest x-ray reveals similar presentation with background COPD changes and right pleural effusion with patchy consolidation. White count 15.8. Hemoglobin 14.2. Platelets 284. Sodium 142. Potassium 4.3. Bicarb 29. BUN 8. Creatinine 0.8. Glucose 113. C-reactive protein 6.4. Pro-calcitonin 0.09. Coronavirus not detected. She is seen today in consultation on the regular medical floor. She is awake and alert. Somewhat anxious. Maintaining O2 saturations in the 9 0s on 4 L/m per nasal cannula. Afebrile. Hemodynamically stable. Review of Systems REVIEW OF SYSTEMS: CONSTITUTIONAL: Positive for altered mental status, anxiety Denies any recent significant weight loss or weight gain. EYES: Denies change in vision. EARS, NOSE, MOUTH, THROAT: Denies headaches, denies sore throat. CARDIOVASCULAR: Denies chest pain, palpitations or syncopal episodes. RESPIRATORY: Positive for shortness of breath, cough, congestion no hemoptysis. GASTROINTESTINAL: Denies change in appetite, denies abdominal pain GENITOURINARY: Denies hematuria, denies infections. MUSKULOSKELETAL: Denies pain, denies swelling. INTEGUMENTARY: Denies rash, denies eczema. NEUROLOGICAL: Denies recent memory loss, no recent seizure activity. PSYCHIATRIC: Positive for anxiety, denies depression. HEMATOLOGIC/LYMPHATIC: Denies anemia, denies enlarged lymph nodes. 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 History of Any Multi-Drug Resistant Organisms: None Reported Past Surgical History: Adenoidectomy, Appendectomy, Breast Surgery, Hysterectomy, Tonsillectomy Additional Past Surgical History / Comment(s): Bronchoscopy/biopsy, thoracentesis, L pyeloplasty/JJ cath, L breast core bx x3-benign, EGD, colonoscopy/benign polypectomy. Right-sided Pleurx catheter placement Past Anesthesia/Blood Transfusion Reactions: Postoperative Nausea & Vomiting (PONV) Additional Past Anesthesia/Blood Transfusion Reaction / Comment(s): Pt has clausterphobia Past Psychological History: Anxiety, Bipolar, Depression Smoking Status: Former smoker Past Alcohol Use History: None Reported Past Drug Use History: None Reported - Past Family History Father Family Medical History: CVA/TIA Additional Family Medical History / Comment(s): Father of a cerebral hemorrhage at age 48yrs. Mother Family Medical History: Cancer Additional Family Medical History / Comment(s): Mother of lung cancer. Sister(s) Family Medical History: Cancer Additional Family Medical History / Comment(s): Sister of lung cancer Medications and Allergies Home Medications Medication Instructions Recorded Confirmed Type Albuterol Sulfate [Ventolin HFA] 2 puff INHALATION RT-Q4H PRN 09/10/20 03/22/23 History Atorvastatin [Lipitor] 20 mg PO HS 30 Days tab 02/14/21 03/22/23 Rx atenoloL [Tenormin] 50 mg PO DAILY 30 Days tab 02/14/21 03/22/23 Rx ARIPiprazole [Abilify] 4 mg PO DAILY 03/02/21 03/22/23 History Aspirin EC [Ecotrin Low Dose] 81 mg PO HS 02/26/23 03/22/23 History Divalproex Sodium 250 mg PO BID 02/26/23 03/22/23 History Furosemide [Lasix] 20 - 40 mg PO DAILY PRN 02/26/23 03/22/23 History Levothyroxine Sodium [Synthroid] 100 mcg PO DAILY 02/26/23 03/22/23 History Mirtazapine [Remeron] 15 mg PO HS 02/26/23 03/22/23 History Sertraline [Zoloft] 50 mg PO DAILY 02/26/23 03/22/23 History Acetaminophen Tab [Tylenol] 650 mg PO Q6HR PRN tab 02/28/23 03/22/23 Rx Budesonide-Formot 160-4.5 Mcg 2 puff INHALATION RT-BID #1 each 02/28/23 03/22/23 Rx [Symbicort 160-4.5 Mcg Inhaler] Allergies Allergy/AdvReac Type Severity Reaction Status Date / Time latex Allergy Lip Verified 03/22/23 13:47 swelling after dental procedure Physical Exam Vitals: Vital Signs Temp Pulse Pulse Resp BP BP Pulse Ox 03/23/23 08:15 95 106/54 03/23/23 08:12 85 03/23/23 08:02 83 03/23/23 07:22 97.5 F L 83 22 108/66 97 03/23/23 02:00 97.4 F L 86 99/63 90 L 03/22/23 21:03 82 03/22/23 20:56 80 03/22/23 20:00 98.9 F 79 19 97/61 90 L 03/22/23 15:34 92 03/22/23 15:25 88 03/22/23 13:26 97.3 F L 88 20 113/69 87 L 03/22/23 12:20 98.0 F 81 18 93/52 91 L 03/22/23 12:06 82 03/22/23 11:58 80 03/22/23 11:24 90 L 03/22/23 10:55 71 18 93/56 90 L Intake and Output 03/22/23 03/23/23 03/23/23 22:59 06:59 14:59 Other: Voiding Method Toilet # Voids 2 1 GENERAL EXAM: Alert, anxious 82-year-old female on 4 L nasal cannula, fairly comfortable in no apparent distress. HEAD: Normocephalic. EYES: Normal reaction of pupils, equal size. NOSE: Clear with pink turbinates. THROAT: No erythema or exudates. NECK: No masses, no JVD. CHEST: No chest wall deformity. Pleurx catheter remains in place to the right chest. LUNGS: Equal air entry with crackles in the right lung base. CVS: S1 and S2 normal with no audible murmur, regular rhythm. ABDOMEN: No hepatosplenomegaly, normal bowel sounds, no guarding or rigidity. SPINE: No scoliosis or deformity SKIN: No rashes CENTRAL NERVOUS SYSTEM: No focal deficits, tone is normal in all 4 extremities. EXTREMITIES: There is no peripheral edema. No clubbing, no cyanosis. Peripheral pulses are intact. Results - Laboratory Findings CBC and BMP: 03/22/23 08:37 03/23/23 06:37 Abnormal lab findings: Abnormal Labs 03/22/23 03/22/23 03/22/23 08:37 08:37 09:41 WBC 15.8 H Neutrophils # (Manual) 11.30 H Lymphocytes # (Manual) 0.32 L Monocytes # (Manual) 1.74 H Eosinophils # (Manual) 2.53 H VBG pCO2 68 H VBG HCO3 36 H Sodium 136 L Chloride 96 L Carbon Dioxide 37 H Anion Gap BUN BUN/Creatinine Ratio Glucose 105 H Calcium C-Reactive Protein Total Protein 5.8 L Albumin 3.1 L Urine Blood Urine RBC Urine WBC 03/22/23 03/23/23 09:49 06:37 WBC Neutrophils # (Manual) Lymphocytes # (Manual) Monocytes # (Manual) Eosinophils # (Manual) VBG pCO2 VBG HCO3 Sodium Chloride Carbon Dioxide Anion Gap 12.70 H BUN 8.2 L BUN/Creatinine Ratio 10.25 L Glucose 113 H Calcium 8.5 L C-Reactive Protein 6.40 H Total Protein Albumin Urine Blood Moderate H Urine RBC 27 H Urine WBC 7 H - Diagnostic Findings Chest x-ray: image reviewed Assessment and Plan Assessment: Acute on chronic hypoxemic respiratory failure due to chronic changes in the right chest, unchanged. Pleurx catheter remains in place. Anxiety secondary to above History of small cell lung cancer of the left lung status post chemoradiation. PET scan performed in February 2023 showed no suspicious uptake suggesting metastatic disease. There was a small to moderate loculated right pleural fluid collection. History of COPD Benign essential hypertension Hyperlipidemia Hypothyroidism Remote history of right upper extremity DVT, not anticoagulated Plan: The patient was seen and evaluated Chest x-ray, labs and medications reviewed Continue bronchodilators Procalcitonin within normal limits Discontinue antibiotics Hospice consult Continue anxiolytics Titrate the FiO2 as tolerated We will continue to follow and make further recommendations based on her clinical status I have personally seen and examined the patient, performed the documentation and the assessment and plan as written. Number of minutes spent on the visit: 20.
[2023-03-23] MEDS ORDERED: AZITHROMYCIN 500 MG in SODIUM CHLORIDE 0.9% 250 ML IVPB SCH (12:00)
--- NOTE | 2023-03-23 12:36 | P.PN ---
Subjective Progress Note Date: 03/23/23 Patient is an 82-year-old female with a history of COPD with chronic hypoxic respiratory failure on 4 L nasal cannula, small cell lung cancer in 2016 treated with chemo/radiation, chronic right pleural effusion with pleurx cath in for the last 2 years, hypertension, and dyslipidemia who presented with complaints of shortness of breath. Of note she was hospitalized here from 02/26/23 through 03/03/23 for COPD exacerbation and right pleural effusion where she was evaluated by CT surgery who did not recommend any intervention at this time. On arrival to the emergency department here she was satting 82% on 3 L nasal cannula. Initial laboratory analysis was remarkable for white blood cell count 15.8, sodium 136, chloride 96, carbon dioxide 37, glucose 105. VBG showed pH is 7.34 pCO2 of 68 and a bicarb of dirty 6. Valproic acid level was 44.1. Lactic acid was normal. Pulmonary and ID we consulted and procal was negative. Her abx were discontinued. Pulm suggested hospice consult. Patient and present. She is confused about hospitalist. She states Dr. Cullen suggested that she meet with hospice, but she is unclear why. Excellent her that it does not appear she has a continued infection in her right pleural cavity, and that he does not anticipate significant recovery of her shortness of breath. With her feeling as though her quality of life is poor and she is u nable to do the things she wants with her shortness of breath it would make logical sense to consider hospice care with we will focus more on controlling her anxiety surrounding her chronic shortness of breath as well as making sure that she is a comfortable quality of life at home and all assistive devices she needs. Her are open to talking with hospice. All questions were answered. Patient and asking about potential for talc pleruodesis for removal of pleurx cath- will consult CVT surgery Vital signs reviewed General: nontoxic, no distress, appears at stated age Cardiovascular: S1S2 reg, no murmur, positive posterior tibial pulse bilateral, Lungs: Course bs on the right, no rhonchi, no rales , no accessory muscle use Ext: no gross muscle atrophy, no edema b/l lower extremities, no contractures Neuro: CN II-XI grossly intact, no focal neuro deficits Psych: Alert, oriented, appropriate affect Assessment/Plan: Dyspnea, recent infected plerual effusion likely due to progression of lung disease Acute on chronic hypoxic respiratory failrue Debility Moderate protein calorie malnutrition COPD without exacerbation - Pulmonary note reviewed-hospice suggested, - off zithromax and zosyn with negative procalcitonin - Patient and asking about potential for talc pleruodesis for removal of pleurx cath- will consult CVT surgery - cytology from last month was negtive for malignancy - await blood culture results - ID note reviewed: procal ordered - Await dietitian recs, ensure - PT/OT recs - DuoNeb's every 4 hours and when necessary, Pulmicort 1 mg twice a day, formoterol 20 mcg BID Chronic: HTN HLD Hypothyroidism Small cell lung cancer status post chemo and radiation in 2016, in remission Imaging: none new Data Review: Labs reviewed and remarkable for white blood cell count 17.73, was 113, CRP 6.4, pro calcitonin 0.09 T maximum last 24 hours 97.8, pulse 83, respirations 22, blood pressure 108/66, O2 sat 97% on 6 L COVID- negative DVT prophylaxis: Lovenox Discussed with: Patient, daniel, patient Anticipated discharge date: Pending Clinical course Anticipated discharge place: Pending Clinical course This dictation was prepared using [email or web address] voice recognition software. Though every attempt is made to correct errors during dictation some may still exist. Objective - Vital Signs Vital signs: Vital Signs Temp 97.5 F L 03/23/23 07:22 Pulse 95 03/23/23 08:15 Resp 22 03/23/23 07:22 BP 106/54 03/23/23 08:15 Pulse Ox 97 03/23/23 07:22 FiO2 Intake & Output 03/22/23 03/23/23 03/23/23 18:59 06:59 18:59 Weight 66.678 kg Other: Voiding Method Toilet Toilet # Voids 2 1 - Labs CBC & Chem 7: 03/23/23 06:37 03/23/23 06:37 Labs: Abnormal Lab Results - Last 24 Hours (Table) 03/23/23 03/23/23 Range/Units 06:37 06:37 WBC 17.73 H (4.50-10.00) X 10*3/uL MCHC 31.6 L (32.0-37.0) d/dL Anion Gap 12.70 H (4.00-12.00) mmol/L BUN 8.2 L (9.0-27.0) mg/dL BUN/Creatinine Ratio 10.25 L (12.00-20.00) Ratio Glucose 113 H (70-110) mg/dL Calcium 8.5 L (8.7-10.3) mg/dL C-Reactive Protein 6.40 H (0.00-0.80) mg/dL
[2023-03-23] MEDS: SODIUM CHLORIDE 0.9% 1,000 ML IV SCH (17:23)
[2023-03-23] MEDS: ACETAMINOPHEN TAB 325 MG TAB PO PRN (20:16)
[2023-03-23] MEDS: MIRTAZAPINE 15 MG TAB PO SCH (20:16)
[2023-03-23] MEDS: ASPIRIN 81 MG PO SCH (20:16)
[2023-03-23] MEDS: ATORVASTATIN 20 MG TAB PO SCH (20:16)
[2023-03-23] MEDS: MELATONIN 3 MG TABLET PO PRN (20:16)
[2023-03-24] MEDS: ALPRAZolam 0.5 MG TAB PO PRN ×3 (05:33→20:10)
[2023-03-24] MEDS: ACETAMINOPHEN TAB 325 MG TAB PO PRN (05:33)
[2023-03-24] MEDS: IPRATROPIUM-ALBUTEROL 3 ML NEB INHALATION PRN ×2 (06:11→16:37)
--- NOTE | 2023-03-24 08:12 | P.PN ---
Subjective Progress Note Date: 03/23/23 Principal diagnosis: Pneumonia Patient is a 82-year-old female with a past medical history significant for hypertension hyperlipidemia osteoarthritis DVT COPD small cell lung cancer did have history of right-sided effusion status post thoracocentesis patient presenting to the hospital for evaluation of increasing shortness of breath ,chest x-ray right effusion and consolidation concerning for pneumonia. On today's evaluation that is 03/23/2023 the patient is afebrile, patient is still complaining of shortness of breath and is requiring 6 L nasal cannula oxygen which denies having any chest pain no worsening cough or sputum production abdominal pain or diarrhea. Patient white count is slightly up to 17.73 today creatinine 0.8 blood cultures pending sputum received Objective - Vital Signs Vital signs: Vital Signs Temp 98.4 F 03/23/23 19:08 Pulse 90 03/23/23 19:08 Resp 18 03/23/23 19:08 BP 107/53 03/23/23 19:08 Pulse Ox 89 L 03/23/23 19:08 FiO2 Intake & Output 03/23/23 03/23/23 03/24/23 06:59 18:59 06:59 Other: Voiding Method Toilet Toilet # Voids 1 3 - Exam GENERAL DESCRIPTION: Elderly female lying in bed in no distress RESPIRATORY SYSTEM: Unlabored breathing , decreased breath sounds at bases HEART: S1 S2 regular rate and rhythm ,no loud murmurs ABDOMEN: Soft , no tenderness EXTREMITIES: No edema feet - Labs CBC & Chem 7: 03/23/23 06:37 03/23/23 06:37 Labs: Abnormal Lab Results - Last 24 Hours (Table) 03/23/23 03/23/23 Range/Units 06:37 06:37 WBC 17.73 H (4.50-10.00) X 10*3/uL MCHC 31.6 L (32.0-37.0) d/dL Anion Gap 12.70 H (4.00-12.00) mmol/L BUN 8.2 L (9.0-27.0) mg/dL BUN/Creatinine Ratio 10.25 L (12.00-20.00) Ratio Glucose 113 H (70-110) mg/dL Calcium 8.5 L (8.7-10.3) mg/dL C-Reactive Protein 6.40 H (0.00-0.80) mg/dL Microbiology - Last 24 Hours (Table) 03/22/23 08:40 Blood Culture - Preliminary Blood Assessment and Plan (1) Pneumonia Current Visit: Yes Status: Acute Priority: High Code(s): J18.9 - PNEUMONIA, UNSPECIFIED ORGANISM SNOMED Code(s): 639401234 Plan: 1patient presented to hospital with shortness of breath did have a cough productive sputum in addition to the anxiety and some mental status changes chest x-ray with right-sided effusion and consolidation concerning for pneumonia possible gram-negative as the patient has been in and out of hospital recently. 2sputum has been obtained and currently pending processing. 3patient to continue Zosyn while awaiting further work-up to be completed and monitor clinical course closely Dictation was produced using [employer] dictation software. please excuse any grammatical, word or spelling errors.
[2023-03-24] MEDS: ARIPiprazole 2 MG TAB PO SCH (08:44)
[2023-03-24] MEDS: atenoloL 50 MG TAB PO SCH (08:44)
[2023-03-24] MEDS: DIVALPROEX 250 MG TABLET.DR PO SCH ×2 (08:44→20:10)
[2023-03-24] MEDS: ENOXAPARIN 40 MG/0.4 ML SYRINGE SQ SCH (08:44)
[2023-03-24] MEDS: LEVOTHYROXINE 100 MCG TAB PO SCH (08:44)
[2023-03-24] MEDS: SERTRALINE 50 MG TAB PO SCH (08:44)
[2023-03-24 09:34] LABS: Allen Test Performed? Yes
[2023-03-24 09:46] LABS: ABG HCO3 33 mmol/L (21-25); ABG Oxygen Saturation 89.7 % (94-97); ABG PCO2 51 mmHg (35-45); ABG PH 7.42 (7.35-7.45); ABG TCO2 34 mmol/L (19-24)
[2023-03-24] MEDS: ALBUTEROL NEBULIZED 2.5 MG/3 ML INHALATION SCH ×4 (09:54→20:18)
[2023-03-24] MEDS: FORMOTEROL FUMARATE 20 MCG/2 ML NEBU INHALATION SCH ×2 (09:54→20:19)
[2023-03-24] MEDS: BUDESONIDE 1 MG/2 ML NEBU INHALATION SCH ×2 (09:55→20:19)
[2023-03-24 10:25] LABS: ABG PO2 59 mmHg (83-108)
[2023-03-24 10:52] LABS: HCT 41.9 % (37.2-46.3); HGB 12.6 d/dL (12.0-15.0); MCH 29.2 pg (27.0-32.0); MCHC 30.1 d/dL (32.0-37.0); Mean Platelet Volume 9.8 FL (9.5-12.2); NRBC Per 100 WBC 0 X 10*3/uL (0.00-0.01); Platelet Count 288 X 10*3/uL (140-440); RBC 4.32 X 10*6/uL (4.10-5.20); RDW 13.5 % (11.5-14.5); WBC 16.25 X 10*3/uL (4.50-10.00)
--- NOTE | 2023-03-24 11:54 | P.GSCN ---
History of Present Illness Consult date: 03/24/23 Reason for Consult: Right-sided pleural effusion, status post right Pleurx catheter placement in December 2020, evaluate for talc pleurodesis Requesting physician: Radha Shoemaker History of present illness: This is an 82-year-old female patient who follows on an outpatient basis with Dr. Yao Haywood for her primary care. 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 Ford in December 2020, remote history of tobacco dependence in which he quit smoking 25 years ago, COPD, chronic hypoxemic respiratory failure with home oxygen use at 4 L nasal cannula, hyperlipidemia, hypertension, hypothyroid, atrial flutter, major depressive disorder, and history of DVT to the right upper extremity in 2016. The patient presented to the emergency department here at [facility] on 03/22/2023 with complaints of having altered mental status, anxiety, agitation and shortness of breath. She denies any recent fever, chills, nausea, vomiting, diarrhea, constipation, hemoptysis, hematemesis, lightheadedness, headache, palpitations, weakness, chest pain/pressure, presyncope or syncope. The patient also has a history of recurrent right pleural effusion and subsequently underwent a right Pleurx catheter placement in December 2020 in which she drains the catheter for around 300 mL 3 times per week. A 12-lead EKG was completed on admission which showed normal sinus rhythm with a heart rate of 66 BPM. Initial laboratory results showed a WBC count of 15.8, hemoglobin 14.2, hematocrit 44.3, platelets 284, sodium 136, potassium 4.5, chloride 96, CO2 37, BUN 12, creatinine 0.62, and glucose 105. Subsequently, due to the patient's altered mental status his computed tomography scan of the brain was completed which showed no specific intracranial process and nonspecific white matter changes, likely secondary to chronic small vessel ischemia disease. A chest x-ray was also completed which showed COPD changes with right pleural effusion and patchy consolidation concerning for pneumonia. The patient does admit to having a productive cough with yellow tenacious sputum. Patient has been afebrile since admission and is hemodynamically stable and is currently on no inotropic or pressor support. Oxygen saturations are 92% on 6 L nasal cannula. Subsequently due to the patient's recurrent right-sided pleural effusions and continued drainage of the right side a Pleurx catheter a consult was placed to cardiothoracic surgery for further evaluation and treatment recommendations including talc pleurodesis. Review of Systems A 14 point review of systems was completed and was negative except as mentioned in the HPI. Past Medical History Past Medical History: Atrial Flutter, Cancer, COPD, Deep Vein Thrombosis (DVT) (Right arm in 2016), Hyperlipidemia, Hypertension, Osteoarthritis (OA), Pneumonia, Renal Disease, Thyroid Disorder Additional Past Medical History / Comment(s): 2016 Small cell L lung cancer treated with chemoradiation therapy, recent right-sided pleural effusions with thoracentesis, home oxygen at 2L/NC ATC, dysphagia/ aspiration back in 2017 following her cancer radiation treatments, 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 History of Any Multi-Drug Resistant Organisms: None Reported Past Surgical History: Adenoidectomy, Appendectomy, Breast Surgery, Hysterectomy, Tonsillectomy Additional Past Surgical History / Comment(s): Bronchoscopy/biopsy, thoracentesis, L pyeloplasty/JJ cath, L breast core bx x3-benign, EGD, colonoscopy/benign polypectomy. Right-sided Pleurx catheter placement Past Anesthesia/Blood Transfusion Reactions: Postoperative Nausea & Vomiting (PONV) Additional Past Anesthesia/Blood Transfusion Reaction / Comm: Pt has clausterphobia Past Psychological History: Anxiety, Bipolar, Depression Smoking Status: Former smoker Past Alcohol Use History: None Reported Past Drug Use History: None Reported - Past Family History Father Family Medical History: CVA/TIA Additional Family Medical History / Comment(s): Father of a cerebral hemorrhage at age 48yrs. Mother Family Medical History: Cancer Additional Family Medical History / Comment(s): Mother of lung cancer. Sister(s) Family Medical History: Cancer Additional Family Medical History / Comment(s): Sister of lung cancer Medications and Allergies Home Medications Medication Instructions Recorded Confirmed Type Albuterol Sulfate [Ventolin HFA] 2 puff INHALATION RT-Q4H PRN 09/10/20 03/22/23 History Atorvastatin [Lipitor] 20 mg PO HS 30 Days tab 02/14/21 03/22/23 Rx atenoloL [Tenormin] 50 mg PO DAILY 30 Days tab 02/14/21 03/22/23 Rx ARIPiprazole [Abilify] 4 mg PO DAILY 03/02/21 03/22/23 History Aspirin EC [Ecotrin Low Dose] 81 mg PO HS 02/26/23 03/22/23 History Divalproex Sodium 250 mg PO BID 02/26/23 03/22/23 History Furosemide [Lasix] 20 - 40 mg PO DAILY PRN 02/26/23 03/22/23 History Levothyroxine Sodium [Synthroid] 100 mcg PO DAILY 02/26/23 03/22/23 History Mirtazapine [Remeron] 15 mg PO HS 02/26/23 03/22/23 History Sertraline [Zoloft] 50 mg PO DAILY 02/26/23 03/22/23 History Acetaminophen Tab [Tylenol] 650 mg PO Q6HR PRN tab 02/28/23 03/22/23 Rx Budesonide-Formot 160-4.5 Mcg 2 puff INHALATION RT-BID #1 each 02/28/23 03/22/23 Rx [Symbicort 160-4.5 Mcg Inhaler] Allergies Allergy/AdvReac Type Severity Reaction Status Date / Time latex Allergy Lip Verified 03/22/23 13:47 swelling after dental procedure Surgical - Exam Vital Signs Temp Pulse Resp BP Pulse Ox 98.1 F 76 20 114/73 82 L 03/22/23 08:07 03/22/23 08:07 03/22/23 08:07 03/22/23 08:07 03/22/23 08:07 - General well developed, well nourished, no distress, no pain, chronically ill - Eyes PERRL, normal ocular movement, no pale, no icteric - ENT normal pinna, normal nares, normal mucosa, no hearing loss, no congestion - Neck Neck is supple, no lymphadenopathy. no masses, no bruits, trachea midline, no venous distension - Respiratory Lung sounds diminished throughout, with few expiratory wheezes, diminished bilateral bases right greater than left. Respirations are symmetrical with pursed lip breathing. No crackles or rhonchi. Oxygen saturation 92% on 6 L nasal cannula. - Cardiovascular Regular rhythm and tachycardic rate. S1 and S2 present, negative for S3, gallop or murmur. - Abdomen Abdomen is soft, nontender and nondistended. Active bowel sounds present all 4 abdominal quadrants. No guarding or rigidity. - Genitourinary Deferred - Rectum Deferred - Integumentary Skin is warm and dry. No clubbing or cyanosis is present. Right upper quadrant abdomen Pleurx catheter is in place with dressing clean, dry and intact. no rash, no growths, no abnormal pigmentation - Neurologic No focal deficits. normal coordination, normal sensation - Musculoskeletal Moves all 4 extremities with equal strength bilaterally. normal posture - Psychiatric oriented to time, oriented to person, oriented to place, speech is normal, memory intact Results - Labs 03/24/23 06:45 03/23/23 06:37 Abnormal Lab Results - Last 24 Hours (Table) 03/23/23 Range/Units 06:37 WBC 17.73 H (4.50-10.00) X 10*3/uL MCHC 31.6 L (32.0-37.0) d/dL Microbiology - Last 24 Hours (Table) 03/22/23 08:40 Blood Culture - Preliminary Blood - Imaging Chest x-ray: report reviewed, image reviewed Additional studies: Computed tomography scan of the brain report reviewed. Assessment and Plan Assessment: Recurrent right-sided pleural effusion, status post right-sided Pleurx catheter placement in December 2020 Acute on chronic hypoxemic respiratory failure, likely secondary to above and a component of COPD History of small cell lung cancer on the left lung status post chemoradiation, status post PET scan in February 2023 demonstrated no suspicious uptake suggesting metastatic disease History of COPD Hypertension Hyperlipidemia Hypothyroidism History of atrial flutter Remote history of right upper extremity DVT Remote history of nicotine dependence, quit smoking over 25 years ago Major depressive disorder history Plan: The patient was seen and examined at her bedside on the fourth floor medical surgical unit. Her chart and diagnostics were reviewed. Her case was discussed in detail with Dr. Sanjay Barboza from cardiothoracic surgery. Continue current course with symptom management, right Pleurx catheter drainage as needed. Jacey francis is currently draining the Pleurx catheter 3 times per week with 300 mL output with each drainage session. No talc pleurodesis is recommended at this time. Hospice has been consulted. Medical management and other comorbidities per primary care service and other consultants. We will continue to follow the patient on an as-needed basis, for any further questions regarding the Pleurx catheter please feel free to call or reconsult. Thank you Dr. Shoemaker for this consult. I have personally seen and examined the patient, performed the documentation and the assessment and plan as written. Number of minutes spent on the visit, 30 minutes . Chandra Pathak LOADING MACHINE TOOL SETTER-C Attending Addendum: The patient was evaluated with the LOADING MACHINE TOOL SETTER above. Agree with his assessment and plan. This is an 82 year-old female with a diagnosis of small cell carcinoma with a right sided recurrent effusion s/p PleurX catheter which has been draining 300cc QOD. At this point, there is no role for pleurodesis given her hx of CA. Recommend continuning pleurX drainage 3x weekly. I spent 35 minutes evaluating this patients data and discussing the plan with the care team. Time with Patient: Greater than 30
[2023-03-24] MEDS ORDERED: methylPREDNISolone SOD SUCCI 125 MG/2 ML VIAL IV SCH (12:00)
[2023-03-24] MEDS: guaiFENesin-DM 600/30MG 1 EACH TAB.ER.12H PO SCH ×2 (12:48→20:10)
--- NOTE | 2023-03-24 14:41 | P.PN ---
Subjective Progress Note Date: 03/24/23 Hospital course: Patient is a very pleasant 82-year-old female with a past medical history of COPD with chronic hypoxic respiratory failure on 4 L O2 nasal cannula at all times, small cell lung cancer in 2016 status post chemo and radiation currently in remission, chronic right pleural effusion with Pleurx catheter in place 2 years, hypertension, and hyperlipidemia. She presented to the hospital on 03/22/23 secondary to worsening shortness of breath. Upon arrival to the hospital patient underwent full evaluation. Chest x-ray was completed showing overall similar examination with background COPD changes and right pleural effusion and patchy consolidation, unable to rule out pneumonia. EKG was completed showing normal sinus rhythm at 66 bpm with no noted T-wave or ST abnor malities upon personal review and interpretation. CT head also completed negative for acute intercranial process showing nonspecific white matter changes. Labs completed and reviewed. CBC showing leukocytosis with WBC count of 15.8. Venous blood gas showing elevated patient was admitted under our services with consultation to pulmonology and cardiothoracic surgery. Valproic acid level was obtained resulting slightly subtherapeutic at 44.1. Covid PCR negative. CRP elevated at 6.40. Patient was started on IV antibiotics with Zosyn and azithromycin. Pro-calcitonin negative at 0.09 and antibiotics discontinued at this time. On the morning of 03/24/23, cardiothoracic surgery drained 350 mL out of right lung from Pleurx catheter. Patient continued with worsening shortness of breath and was on 6 L O2 via nasal cannula with SpO2 of 86%. Order placed for stat ABG showingcompensated respiratory acidosis with pH of 7.42, pCO2 51, PaO2 59, bicarb 33, and O2 saturation of 89.7. Physical exam: Patient was seen and fully evaluated at bedside this morning. Patient anxious with increased respiratory effort. RN reported since patient had Pleurx catheter drained she has had increased hypoxia oxygenation needs. Patient currently on 6 L O2 via nasal cannula with SpO2 ranging from 86-87%. Discussed case with green building materials designer, obtaining an ABG and if needed patient to be placed on high flow nasal cannula. Patient does report feeling short of breath and anxious, she denies having any chest pain or palpitations and denies having any dizziness, lightheadedness, or experiencing any numbness/tingling/weakness in her extremities. Vital signs reviewed and stable. General: Nontoxic, no distress and appears stated age. Derm: Skin warm and dry, normal coloration for ethnicity. Head: Atraumatic, normocephalic and symmetric. Eyes: EOMs intact, no lid lag, and anicteric sclera Mouth: no lip lesions, mucus membranes moist Cardiovascular: regular rate and rhythm with normal S1S2, no murmur, positive posterior tibial pulses bilaterally, and cap refill < 2 seconds. Lungs: Respirations increased respiratory effort. Lungs tight with diffuse expiratory wheezes bilaterally and coarse rhonchi right lower and middle lobe. Patient on 6 L O2 via nasal cannula with current SpO2 87%. Abdominal: soft, nontender to palpation, no guarding, no appreciable organomegaly Ext: ROM intact. No gross muscle atrophy, no edema, no contractures Neuro: Speech clear, face symmetrical and CN II-XII grossly intact with no noted focal neuro deficits Psych: Alert and oriented to person, place, time, and situation. Appropriate and pleasant affect. Assessment and Plan of Care: Acute on chronic respiratory failure with hypoxia and hypercarbia COPD with acute exacerbation Chronic right pleural effusion with Pleurx catheter History of small cell lung cancer status post chemo and radiation in 2016 currently in remission -Pulmonology following, discussed patient condition and plan of care. -Order placed for stat ABG showing compensated respiratory acidosis with pH of 7.42, pCO2 51, PaO2 59, bicarb 33, and O2 saturation of 89.7. -Oxygenation to be administered and titrated as needed to maintain SPO2 equal to or greater than 92% -Telemetry monitoring. -Continuous Pulse-oximetry -Continue nebulized albuterol treatments 4 times daily scheduled and Duonebs every 2 hours as needed for SOB and/or wheezing -Continue Pulmicort and formoterol. -Steroids: Decadron 6 mg daily. -Antibiotics received: Patient received 2 day course of Zosyn and azithromycin. This was discontinued after negative pro-calcitonin on 03/23/23. -We will follow-up on sputum culture and Legionella antigen once resulted. Hypertension Vital signs reviewed and stable. Patient to continue with atenolol 50 mg daily. Hypothyroidism Patient to continue daily medication regimen with levothyroxine 100 g daily. Hyperlipidemia Patient to continue with daily medication regimen with atorvastatin 20 mg nightly. Moderate protein calorie malnutrition Albumin 3.1, total protein 5.8. Patient to continue with Premier protein supplements 3 times daily between meals. Dietitian following. Data review: ABG showing compensated respiratory acidosis with pH of 7.42, pCO2 51, PaO2 59, bicarb 33, and O2 saturation of 89.7. Morning labs reviewed. Showing leukocytosis with WBC count of 16.25. Blood cultures showing no growth to date. Vital signs reviewed. Blood pressure 101/64, heart rate 96, respiratory rate 19, temp 98.2F, and current SpO2 of 87% on 6 L O2 via nasal cannula. CODE STATUS: DO NOT RESUSCITATE, patient NO to CPR and YES to intubation and mechanical ventilation. DVT prophylaxis: Lovenox Discussed with: Patient, RN, respiratory therapist, and green building materials designer Anticipated discharge date: Clinical course to determine Anticipated discharge place: Home Patient was seen independently by Nurse Pracitioner. This document was prepared using [employer] dictation software. Please allow for errors in director telemetry, while rare they do occur. I reviewed the documentation as provided by the STACEY above, who is the original author of this note. I agree with the documented assessment and plan, with the following changes: none Objective - Vital Signs Vital signs: Vital Signs Temp 97.6 F 03/24/23 00:55 Pulse 111 H 03/24/23 06:24 Resp 18 03/24/23 00:55 BP 93/63 03/24/23 00:55 Pulse Ox 89 L 03/24/23 00:55 FiO2 Intake & Output 03/23/23 03/24/23 03/24/23 18:59 06:59 18:59 Other: Voiding Method Toilet # Voids 3 0 - Labs CBC & Chem 7: 03/24/23 06:45 03/23/23 06:37 Labs: Abnormal Lab Results - Last 24 Hours (Table) 03/23/23 03/23/23 Range/Units 06:37 06:37 WBC 17.73 H (4.50-10.00) X 10*3/uL MCHC 31.6 L (32.0-37.0) d/dL Anion Gap 12.70 H (4.00-12.00) mmol/L BUN 8.2 L (9.0-27.0) mg/dL BUN/Creatinine Ratio 10.25 L (12.00-20.00) Ratio Glucose 113 H (70-110) mg/dL Calcium 8.5 L (8.7-10.3) mg/dL C-Reactive Protein 6.40 H (0.00-0.80) mg/dL Microbiology - Last 24 Hours (Table) 03/22/23 08:40 Blood Culture - Preliminary Blood
--- NOTE | 2023-03-24 17:00 | P.PN ---
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 She also has history of hypertension, hyperlipidemia, hypothyroidism, atrial fibrillation, and right upper extremity DVT. If she was just discharged on 03/03/2023 following concerns regarding bloody fluid from her Pleurx catheter. She presented here to the emergency room yesterday with complaints of increasing anxiety and some altered mental status according to her . Computed tomography scan of the brain revealed no acute intracranial process. Her Pleurx catheter is drained every third day with about 300 ML's of fluid returned. Chest x-ray reveals similar presentation with background COPD changes and right pleural effusion with patchy consolidation. White count 15.8. Hemoglobin 14.2. Platelets 284. Sodium 142. Potassium 4.3. Bicarb 29. BUN 8. Creatinine 0.8. Glucose 113. C-reactive protein 6.4. Pro-calcitonin 0.09. Coronavirus not detected. She is seen today in consultation on the regular medical floor. She is awake and alert. Somewhat anxious. Maintaining O2 saturations in the 90s on 4 L/m per nasal cannula. Afebrile. Hemodynamically stable. On today's evaluation of 03/24/2023, the patient is still having difficulty breathing. She underwent a drainage of the Pleurx catheter on the right and the patient had a total of 300 mL of pleural fluid evacuated. The patient is still coughing some yellowish sputum. There may be a component of COPD exacerbation. The blood gas was done and the patient was having difficulties in her pulse ox recording. The patient is currently on 6 L and the pulse ox 94%. The blood gas showed a pH of 7.42 with a pCO2 of 51 and pO2 of 59 and this was done on 4 L of oxygen by nasal cannula. The white cell count of 16.2 with a hemoglobin 12.6. The patient is hesitant to take any form of steroids due to his altered mentation depression. The previous cigarette 16.2 with a hemoglobin of 12.6. Pro-calcitonin level is at 0.09. The chest x-ray from yesterday showed stable right-sided pleural effusion and patchy consolidation on the right. Objective - Vital Signs Vital signs: Vital Signs Temp 98.2 F 03/24/23 07:30 Pulse 100 03/24/23 10:10 Resp 19 03/24/23 07:30 BP 101/64 03/24/23 07:30 Pulse Ox 92 L 03/24/23 09:58 FiO2 Intake & Output 03/23/23 03/24/23 03/24/23 18:59 06:59 18:59 Other: Voiding Method Toilet # Voids 3 0 - Exam GENERAL EXAM: Alert, anxious 82-year-old female on 6 L nasal cannula, fairly comfortable in no apparent distress. HEAD: Normocephalic. EYES: Normal reaction of pupils, equal size. NOSE: Clear with pink turbinates. THROAT: No erythema or exudates. NECK: No masses, no JVD. CHEST: No chest wall deformity. Pleurx catheter remains in place to the right chest. LUNGS: Equal air entry with crackles in the right lung base. CVS: S1 and S2 normal with no audible murmur, regular rhythm. ABDOMEN: No hepatosplenomegaly, normal bowel sounds, no guarding or rigidity. SPINE: No scoliosis or deformity SKIN: No rashes CENTRAL NERVOUS SYSTEM: No focal deficits, tone is normal in all 4 extremities. EXTREMITIES: There is no peripheral edema. No clubbing, no cyanosis. Peripheral pulses are intact. - Labs CBC & Chem 7: 03/24/23 06:45 03/23/23 06:37 Labs: Abnormal Lab Results - Last 24 Hours (Table) 03/24/23 03/24/23 Range/Units 06:45 09:30 WBC 16.25 H (4.50-10.00) X 10*3/uL MCHC 30.1 L (32.0-37.0) d/dL ABG pCO2 51 H (35-45) mmHg ABG pO2 59 L* (83-108) mmHg ABG HCO3 33 H (21-25) mmol/L ABG Total CO2 34 H (19-24) mmol/L ABG O2 Saturation 89.7 L (94-97) % Microbiology - Last 24 Hours (Table) 03/22/23 08:40 Blood Culture - Preliminary Blood Assessment and Plan Plan: Acute on chronic hypoxemic respiratory failure due to chronic changes in the right chest, unchanged. Pleurx catheter remains in place. The patient is currently on 6 L of oxygen by nasal cannula. Blood gas was noted Anxiety secondary to above Shortness of breath, multifactorial. The patient has COPD and history of small cell lung cancer with a recurrent right-sided pleural effusion. Superinfection cannot be completely ruled out. Pro-calcitonin level is nonelevated. 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 P ET scan performed in February 2023 showed no suspicious uptake suggesting metastatic disease. There was a small to moderate loculated right pleural fluid collection. The patient has had a chronic right-sided pleural effusion and she has undergone episodic drainage for a Pleurx catheter on the right lung. Repeated pleural fluid cytology has been negative for malignancy. There is a concern for a pleural space infection. Previous pleural fluid has shown polymicrobial growth which I think is contaminant. There may be value to repeat a pleural fluid culture. History of COPD Benign essential hypertension Hyperlipidemia Hypothyroidism Remote history of right upper extremity DVT, not anticoagulated Plan: Right-sided pleural effusion was evacuated with a total of 300 mL of pleural fluid removed We'll start the patient on Decadron and closely monitor the mentation. She was started on Decadron 6 mg IV every 24 hours Continue bronchodilators Procalcitonin within normal limits Continue IV Rocephin Hospice consult has been initiated although the patient is not interested in hospice at this point in time Continue anxiolytics Titrate the FiO2 as tolerated We will continue to follow and make further recommendations based on her clinical status Long-term prognosis poor. She is a DNR/DNI CODE STATUS. Not ready for hospice yet.
[2023-03-24] MEDS: SODIUM CHLORIDE 0.9% 1,000 ML IV SCH (17:44)
[2023-03-24] MEDS: MIRTAZAPINE 15 MG TAB PO SCH (20:10)
[2023-03-24] MEDS: ATORVASTATIN 20 MG TAB PO SCH (20:10)
[2023-03-24] MEDS: ASPIRIN 81 MG PO SCH (20:10)
[2023-03-24] MEDS: MELATONIN 3 MG TABLET PO PRN (21:04)
[2023-03-25] MEDS: ALPRAZolam 0.5 MG TAB PO PRN ×3 (05:31→20:48)
[2023-03-25] MEDS: BUDESONIDE 1 MG/2 ML NEBU INHALATION SCH ×3 (07:28→21:00)
[2023-03-25] MEDS: ALBUTEROL NEBULIZED 2.5 MG/3 ML INHALATION SCH ×4 (07:28→20:56)
[2023-03-25] MEDS: FORMOTEROL FUMARATE 20 MCG/2 ML NEBU INHALATION SCH ×2 (07:28→20:57)
--- NOTE | 2023-03-25 07:47 | P.PN ---
Subjective Progress Note Date: 03/24/23 Principal diagnosis: Pneumonia Patient is a 82-year-old female with a past medical history significant for hypertension hyperlipidemia osteoarthritis DVT COPD small cell lung cancer did have history of right-sided effusion status post thoracocentesis and Pleurx catheter placement presenting the hospital with increasing shortness of breath and concern for possible pneumonia. On today's evaluation that is 03/24/2023 patient remains to be afebrile, the patient complaining of shortness of breath. Denies having any chest pain she did have a cough with occasional sputum production no nausea no vomiting no abdominal pain or diarrhea. Patient white count is 16.25 slightly lower than yesterday creatinine 0.8 blood culture has been pending sputum cultures pending Objective - Vital Signs Vital signs: Vital Signs Temp 98.3 F 03/24/23 15:44 Pulse 86 03/24/23 20:29 Resp 18 03/24/23 15:44 BP 107/69 03/24/23 15:44 Pulse Ox 94 L 03/24/23 15:44 FiO2 Intake & Output 03/24/23 03/24/23 03/25/23 06:59 18:59 06:59 Weight 66.678 kg Other: Voiding Method Toilet # Voids 0 2 - Exam GENERAL DESCRIPTION: Elderly female lying in bed in no distress RESPIRATORY SYSTEM: Unlabored breathing , decreased breath sounds at bases HEART: S1 S2 regular rate and rhythm ,no loud murmurs ABDOMEN: Soft , no tenderness EXTREMITIES: No edema feet - Labs CBC & Chem 7: 03/24/23 06:45 03/23/23 06:37 Labs: Abnormal Lab Results - Last 24 Hours (Table) 03/24/23 03/24/23 Range/Units 06:45 09:30 WBC 16.25 H (4.50-10.00) X 10*3/uL MCHC 30.1 L (32.0-37.0) d/dL ABG pCO2 51 H (35-45) mmHg ABG pO2 59 L* (83-108) mmHg ABG HCO3 33 H (21-25) mmol/L ABG Total CO2 34 H (19-24) mmol/L ABG O2 Saturation 89.7 L (94-97) % Microbiology - Last 24 Hours (Table) 03/22/23 08:40 Blood Culture - Preliminary Blood 03/22/23 17:50 Gram Stain - Preliminary Sputum 03/22/23 20:45 Blood Culture - Preliminary Blood Assessment and Plan (1) Pneumonia Current Visit: Yes Status: Acute Priority: High Code(s): J18.9 - PNEUMONIA, UNSPECIFIED ORGANISM SNOMED Code(s): 290621784 Plan: 1patient presented to hospital with shortness of breath did have a cough productive sputum in addition to the anxiety and some mental status changes chest x-ray with right-sided effusion and consolidation concerning for pneumonia possible gram-negative as the patient has been in and out of hospital recently. 2blood sputum cultures currently pending,. 3CT surgery has been consulted for possible talc pleurodesis for recurrent effusion. 4we will keep the patient on Zosyn while waiting for the culture to finalize and monitor clinical course closely Dictation was produced using [employer] dictation software. please excuse any grammatical, word or spelling errors. Time with Patient: Less than 30
[2023-03-25] MEDS: DEXAMETHASONE SOD PHOSPHATE 10 MG/ML 1 ML VIAL IVP SCH (08:13)
[2023-03-25] MEDS: SERTRALINE 50 MG TAB PO SCH (08:20)
[2023-03-25] MEDS: ENOXAPARIN 40 MG/0.4 ML SYRINGE SQ SCH (08:20)
[2023-03-25] MEDS: LEVOTHYROXINE 100 MCG TAB PO SCH (08:20)
[2023-03-25] MEDS: atenoloL 50 MG TAB PO SCH (08:20)
[2023-03-25] MEDS: ARIPiprazole 2 MG TAB PO SCH (08:21)
[2023-03-25] MEDS: guaiFENesin-DM 600/30MG 1 EACH TAB.ER.12H PO SCH ×2 (08:21→20:49)
[2023-03-25] MEDS: DIVALPROEX 250 MG TABLET.DR PO SCH ×2 (08:21→20:49)
--- NOTE | 2023-03-25 11:48 | XR ---
EXAMINATION TYPE: XR chest 1V DATE OF EXAM: 03/25/2023 COMPARISON: NONE HISTORY: SOB TECHNIQUE: Single frontal view of the chest is obtained. FINDINGS: Volume loss with prominence of the right hilum, right lower lobe consolidation and pleural effusion. Chest tube overlies the right lower lobe stable. Rib deformities with no pneumothorax. Sub segmental changes and minimal blunting left costophrenic angle. Underlying COPD suspected. Heart size stable. Atherosclerotic change aorta. Diffuse osteopenia. IMPRESSION: 1. Right lower lobe consolidation and small effusion stable. Persistent prominence of the right hilum unchanged.
--- NOTE | 2023-03-25 12:49 | P.PN ---
Subjective Progress Note Date: 03/25/23 This is a pleasant 82-year-old female with a past medical history significant for COPD/emphysema, chronic hypoxemic respiratory failure on 3 L/m nasal cannula 24/02, left lung squamous cell carcinoma status post chemoradiation, recurrent right-sided pleural effusions with Pleurx catheter inserted December 2020. She also has history of hypertension, hyperlipidemia, hypothyroidism, atrial fibrillation, and right upper extremity DVT. If she was just discharged on 03/03/2023 following concerns regarding bloody fluid from her Pleurx catheter. She presented here to the emergency room yesterday with complaints of increasing anxiety and some altered mental status according to her . Computed tomography scan of the brain revealed no acute intracranial process. Her Pleurx catheter is drained every third day with about 300 ML's of fluid returned. Chest x-ray reveals similar presentation with background COPD changes and right pleural effusion with patchy consolidation. White count 15.8. Hemoglobin 14.2. Platelets 284. Sodium 142. Potassium 4.3. Bicarb 29. BUN 8. Creatinine 0.8. Glucose 113. C-reactive protein 6.4. Pro-calcitonin 0.09. Coronavirus not detected. She is seen today in consultation on the regular medical floor. She is awake and alert. Somewhat anxious. Maintaining O2 saturations in the 90s on 4 L/m per nasal cannula. Afebrile. Hemodynamically stable. On today's evaluation of 03/24/2023, the patient is still having difficulty breathing. She underwent a drainage of the Pleurx catheter on the right and the patient had a total of 300 mL of pleural fluid evacuated. The patient is still coughing some yellowish sputum. There may be a component of COPD exacerbation. The blood gas was done and the patient was having difficulties in her pulse ox recording. The patient is currently on 6 L and the pulse ox 94%. The blood gas showed a pH of 7.42 with a pCO2 of 51 and pO2 of 59 and this was done on 4 L of oxygen by nasal cannula. The white cell count of 16.2 with a hemoglobin 12.6. The patient is hesitant to take any form of steroids due to his altered mentation depression. The previous cigarette 16.2 with a hemoglobin of 12.6. Pro-calcitonin level is at 0.09. The chest x-ray from yesterday showed stable right-sided pleural effusion and patchy consolidation on the right. On today's evaluation of 03/25/2023, the patient is still struggling with her breathing. She has a cough and congestion and she is unable to bring up much sputum. Noted the rest or secretions are quite thick and tenacious. Sample was sent for cultures and is also still pending for now and the patient remains on IV Rocephin for the time being. She is also on Mucinex DM for cough and congestion. She is on DuoNeb nebulized treatments [id number]. She took a dose of Decadron yesterday, unable to tolerate steroids because of cloudiness in her mentation and some increase restlessness. As such, no steroids are being provided this point in time. The chest x-ray was repeated today and there is opacification of the right lung base. There is a Pleurx catheter in good location. There may be an underlying consolidation/pneumonia. The left lung is essentially clear. His volume is in the right as noted on the chest x-ray. The white cell count from yesterday was at 16.2. She remains on oxygen and she is on 6 L. She has poor respiratory reserve and she gets short of breath with minimal amount of activity. Objective - Vital Signs Vital signs: Vital Signs Temp 97.8 F 03/25/23 07:29 Pulse 87 03/25/23 07:52 Resp 18 03/25/23 07:29 BP 123/66 03/25/23 07:29 Pulse Ox 92 L 03/25/23 07:29 FiO2 Intake & Output 03/24/23 03/25/23 03/25/23 18:59 06:59 18:59 Weight 66.678 kg Other: Voiding Method Toilet # Voids 2 2 - Exam GENERAL EXAM: Alert, anxious 82-year-old female on 6 L nasal cannula, fairly comfortable in no apparent distress. HEAD: Normocephalic. EYES: Normal reaction of pupils, equal size. NOSE: Clear with pink turbinates. THROAT: No erythema or exudates. NECK: No masses, no JVD. CHEST: No chest wall deformity. Pleurx catheter remains in place to the right chest. LUNGS: Equal air entry with crackles in the right lung base. CVS: S1 and S2 normal with no audible murmur, regular rhythm. ABDOMEN: No hepatosplenomegaly, normal bowel sounds, no guarding or rigidity. SPINE: No scoliosis or deformity SKIN: No rashes CENTRAL NERVOUS SYSTEM: No focal deficits, tone is normal in all 4 extremities. EXTREMITIES: There is no peripheral edema. No clubbing, no cyanosis. Peripheral pulses are intact. - Labs CBC & Chem 7: 03/24/23 06:45 03/23/23 06:37 Labs: Microbiology - Last 24 Hours (Table) 03/24/23 11:39 Gram Stain - Preliminary Sputum 03/22/23 08:40 Blood Culture - Preliminary Blood 03/22/23 17:50 Gram Stain - Preliminary Sputum 03/22/23 20:45 Blood Culture - Preliminary Blood Assessment and Plan Plan: Acute on chronic hypoxemic respiratory failure due to chronic changes in the right chest, unchanged. Pleurx catheter remains in place. The patient is currently on 6 L of oxygen by nasal cannula. No interval worsening in oxygenation. Nevertheless, the patient appears to have cough and congestion of respiratory insufficiency and her respiratory reserve is very limited and poor. She gets short of breath with minimal amount of activity and even at rest. Ideally, she would benefit from bronchoscopy for therapeutic airway suctioning and pulmonary toileting. Nevertheless, this may be quite risky as the patient may decompensate during the procedure. I reviewed the repeat chest x-ray and there is ongoing consolidation of the right lung base and a superimposed pneumonia cannot be completely ruled out. Anxiety secondary to above Shortness of breath, multifactorial. The patient has COPD and history of small cell lung cancer with a recurrent right-sided pleural effusion. Superinfection cannot be completely ruled out. Pro-calcitonin level is nonelevated. 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 PET scan performed in February 2023 showed no suspicious uptake suggesting metastatic disease. There was a small to moderate loculated right pleural fluid collection. The patient has had a chronic right-sided pleural effusion and she has undergone episodic drainage for a Pleurx catheter on the right lung. Repeated pleural fluid cytology has been negative for malignancy. There is a concern for a pleural space infection. Previous pleural fluid has shown polymicrobial growth which I think is contaminant. There may be value to repeat a pleural fluid culture. History of COPD Benign essential hypertension Hyperlipidemia Hypothyroidism Remote history of right upper extremity DVT, not anticoagulated Plan: I'm going to drop the IV Rocephin and this was suspicious IV Zosyn Aggressive pulmonary toileting Right-sided pleural effusion was evacuated with a total of 300 mL of pleural fluid removed unable to take any steroids due to cloudiness and altered mentation and psych iatric agitation Continue bronchodilators Procalcitonin within normal limits Hospice consult has been initiated although the patient is not interested in hospice at this point in time Continue anxiolytics Titrate the FiO2 as tolerated I'm going to talk to her about the need for bronchoscopy and therapeutic airway suctioning and removal of mucous plugs. Nevertheless, as mentioned, she has poor respiratory reserve and she may not tolerate the procedure and this will be quite risky. Awaiting sputum Gram stain and culture We will continue to follow and make further recommendations based on her clinical status Long-term prognosis poor. She is a DNR/DNI CODE STATUS. Not ready for hospice yet.
[2023-03-25] MEDS: IPRATROPIUM-ALBUTEROL 3 ML NEB INHALATION PRN (15:04)
--- NOTE | 2023-03-25 16:08 | P.PN ---
Subjective Progress Note Date: 03/25/23 Principal diagnosis: Pneumonia Patient is a 82-year-old female with a past medical history significant for hypertension hyperlipidemia osteoarthritis DVT COPD small cell lung cancer did have history of right-sided effusion status post thoracocentesis and Pleurx catheter placement presenting the hospital with increasing shortness of breath and concern for possible pneumonia. On today's evaluation that is 03/25/2023 patient continues to be afebrile, the patient complaining of more shortness of breath today the patient denies any chest pain she did have a cough with occasional sputum production no nausea no vomiting no abdominal pain or diarrhea. Patient white count is 16.25 and creatinine 0.8 as of yesterday no CBC was done today blood culture has been pending sputum cultures pending Objective - Vital Signs Vital signs: Vital Signs Temp 97.8 F 03/25/23 07:29 Pulse 77 03/25/23 11:29 Resp 18 03/25/23 07:29 BP 123/66 03/25/23 07:29 Pulse Ox 92 L 03/25/23 07:29 FiO2 Intake & Output 03/24/23 03/25/23 03/25/23 18:59 06:59 18:59 Weight 66.678 kg Other: Voiding Method Toilet # Voids 2 2 - Exam GENERAL DESCRIPTION: Elderly female lying in bed in no distress RESPIRATORY SYSTEM: Unlabored breathing , decreased breath sounds at bases HEART: S1 S2 regular rate and rhythm ,no loud murmurs ABDOMEN: Soft , no tenderness EXTREMITIES: No edema feet - Labs CBC & Chem 7: 03/24/23 06:45 03/23/23 06:37 Labs: Microbiology - Last 24 Hours (Table) 03/24/23 11:39 Gram Stain - Preliminary Sputum 03/22/23 08:40 Blood Culture - Preliminary Blood 03/22/23 17:50 Gram Stain - Preliminary Sputum 03/22/23 20:45 Blood Culture - Preliminary Blood Assessment and Plan (1) Pneumonia Current Visit: Yes Status: Acute Priority: High Code(s): J18.9 - PNEUMONIA, UNSPECIFIED ORGANISM SNOMED Code(s): 879448670 Plan: 1patient presented to hospital with shortness of breath did have a cough productive sputum in addition to the anxiety and some mental status changes chest x-ray with right-sided effusion and consolidation concerning for pneumonia possible gram-negative as the patient has been in and out of hospital recently. 2blood and sputum cultures currently pending,. 3CT surgery has been consulted for possible talc pleurodesis for recurrent effusion. 4antibiotic has been switched over to Rocephin by pulmonary patient will monitor closely and cultures will be followed Dictation was produced using [employer] dictation software. please excuse any grammatical, word or spelling errors. Time with Patient: Less than 30
[2023-03-25] MEDS: PIPERACILLIN-TAZOBACTAM 3.375 GM in SODIUM CHLORIDE 0.9% 100 ML IVPB SCH (17:15)
--- NOTE | 2023-03-25 18:32 | P.PN ---
Subjective Progress Note Date: 03/25/23 Hospital course: Patient is a very pleasant 82-year-old female with a past medical history of COPD with chronic hypoxic respiratory failure on 4 L O2 nasal cannula at all times, small cell lung cancer in 2016 status post chemo and radiation currently in remission, chronic right pleural effusion with Pleurx catheter in place 2 years, hypertension, and hyperlipidemia. She presented to the hospital on 03/22/23 secondary to worsening shortness of breath. Upon arrival to the hospital patient underwent full evaluation. Chest x-ray was completed showing overall similar examination with background COPD changes and right pleural effusion and patchy consolidation, unable to rule out pneumonia. EKG was completed showing normal sinus rhythm at 66 bpm with no noted T-wave or ST abnor malities upon personal review and interpretation. CT head also completed negative for acute intercranial process showing nonspecific white matter changes. Labs completed and reviewed. CBC showing leukocytosis with WBC count of 15.8. Venous blood gas showing elevated patient was admitted under our services with consultation to pulmonology and cardiothoracic surgery. Valproic acid level was obtained resulting slightly subtherapeutic at 44.1. Covid PCR negative. CRP elevated at 6.40. Patient was started on IV antibiotics with Zosyn and azithromycin. Pro-calcitonin negative at 0.09 and antibiotics discontinued at this time. On the morning of 03/24/23, cardiothoracic surgery drained 350 mL out of right lung from Pleurx catheter. Patient continued with worsening shortness of breath and was on 6 L O2 via nasal cannula with SpO2 of 86%. Order placed for stat ABG showingcompensated respiratory acidosis with pH of 7.42, pCO2 51, PaO2 59, bicarb 33, and O2 saturation of 89.7. Physical exam: Patient was seen and fully evaluated at bedside this morning. Patient appears more relaxed this morning and not as anxious. She continues to have increased oxygen requirements and remains on 6 L O2 maintaining SpO2 between 87 and 92%. Patient had meeting with hospice yesterday but would not allow them in the room as she was not willing to discuss hospice or palliative care at this time. We'll continue to educate patient on palliative care as patient will likely have increased needs once she is able to be discharged. Patient currently with poor prognosis. Vital signs reviewed and stable. General: Nontoxic, no distress and appears stated age. Derm: Skin warm and dry, normal coloration for ethnicity. Head: Atraumatic, normocephalic and symmetric. Eyes: EOMs intact, no lid lag, and anicteric sclera Mouth: no lip lesions, mucus membranes moist Cardiovascular: regular rate and rhythm with normal S1S2, no murmur, positive posterior tibial pulses bilaterally, and cap refill < 2 seconds. Lungs: Respirations increased respiratory effort. Lungs tight with diffuse expiratory wheezes bilaterally and coarse rhonchi right lower and middle lobe. Patient on 6 L O2 via nasal cannula with current SpO2 87%. Abdominal: soft, nontender to palpation, no guarding, no appreciable organomegaly Ext: ROM intact. No gross muscle atrophy, no edema, no contractures Neuro: Speech clear, face symmetrical and CN II-XII grossly intact with no noted focal neuro deficits Psych: Alert and oriented to person, place, time, and situation. Appropriate and pleasant affect. Assessment and Plan of Care: Acute on chronic respiratory failure with hypoxia and hypercarbia COPD with acute exacerbation Chronic right pleural effusion with Pleurx catheter History of small cell lung cancer status post chemo and radiation in 2016 currently in remission -Pulmonology following, discussed patient condition and plan of care. -Order placed for stat ABG showing compensated respiratory acidosis with pH of 7.42, pCO2 51, PaO2 59, bicarb 33, and O2 saturation of 89.7. -Oxygenation to be administered and titrated as needed to maintain SPO2 equal to or greater than 92% -Telemetry monitoring. -Continuous Pulse-oximetry -Continue nebulized albuterol treatments 4 times daily scheduled and Duonebs every 2 hours as needed for SOB and/or wheezing -Continue Pulmicort and formoterol. -Steroids: Decadron 6 mg daily. -Antibiotics received: Patient received 2 day course of Zosyn and azithromycin. This was discontinued after negative pro-calcitonin on 03/23/23. -Legionella antigen negative. Hypertension Vital signs reviewed and stable. Patient to continue with atenolol 50 mg daily. Hypothyroidism Patient to continue daily medication regimen with levothyroxine 100 g daily. Hyperlipidemia Patient to continue with daily medication regimen with atorvastatin 20 mg nightly. Moderate protein calorie malnutrition Albumin 3.1, total protein 5.8. Patient to continue with Premier protein supplements 3 times daily between meals. Dietitian following. Data review: Morning labs reviewed. Blood cultures and sputum cultures showing no growth to date. Legionella antigen negative. Vital signs reviewed. Blood pressure 123/66, heart rate 94, respiratory rate 18, temp 97.8F, and SpO2 of 92% on 6 L. on 6 L O2 via nasal cannula. Patient currently with poor prognosis. CODE STATUS: DO NOT RESUSCITATE, patient NO to CPR and YES to intubation and mec hanical ventilation. DVT prophylaxis: Lovenox Discussed with: Patient, RN, and gift shop clerk Anticipated discharge date: Clinical course to determine Anticipated discharge place: Home Patient was seen independently by Nurse Pracitioner. This document was prepared using [employer] dictation software. Please allow for errors in medical laboratory specialist, while rare they do occur. I reviewed the documentation as provided by the STACEY above, who is the original author of this note. I agree with the documented assessment and plan, with the following changes: none Objective - Vital Signs Vital signs: Vital Signs Temp 98.2 F 03/25/23 01:27 Pulse 87 03/25/23 07:52 Resp 19 03/25/23 01:27 BP 101/61 03/25/23 01:27 Pulse Ox 92 L 03/25/23 07:28 FiO2 Intake & Output 03/24/23 03/25/23 03/25/23 18:59 06:59 18:59 Weight 66.678 kg Other: Voiding Method Toilet # Voids 2 2 - Labs CBC & Chem 7: 03/26/23 05:56 03/26/23 05:56 Labs: Abnormal Lab Results - Last 24 Hours (Table) 03/24/23 03/24/23 Range/Units 06:45 09:30 WBC 16.25 H (4.50-10.00) X 10*3/uL MCHC 30.1 L (32.0-37.0) d/dL ABG pCO2 51 H (35-45) mmHg ABG pO2 59 L* (83-108) mmHg ABG HCO3 33 H (21-25) mmol/L ABG Total CO2 34 H (19-24) mmol/L ABG O2 Saturation 89.7 L (94-97) % Microbiology - Last 24 Hours (Table) 03/22/23 08:40 Blood Culture - Preliminary Blood 03/22/23 17:50 Gram Stain - Preliminary Sputum 03/22/23 20:45 Blood Culture - Preliminary Blood
[2023-03-25] MEDS: ASPIRIN 81 MG PO SCH (20:48)
[2023-03-25] MEDS: MIRTAZAPINE 15 MG TAB PO SCH (20:48)
[2023-03-25] MEDS: ATORVASTATIN 20 MG TAB PO SCH (20:49)
[2023-03-25] MEDS: MELATONIN 3 MG TABLET PO PRN (20:49)
[2023-03-26] MEDS: PIPERACILLIN-TAZOBACTAM 3.375 GM in SODIUM CHLORIDE 0.9% 100 ML IVPB SCH ×3 (00:45→17:28)
[2023-03-26] MEDS: SODIUM CHLORIDE 0.9% 1,000 ML IV SCH ×2 (00:47→17:30)
[2023-03-26] MEDS ORDERED: FUROSEMIDE 20 MG TAB PO PRN (05:31)
[2023-03-26] MEDS: FORMOTEROL FUMARATE 20 MCG/2 ML NEBU INHALATION SCH ×2 (07:28→20:57)
[2023-03-26] MEDS: BUDESONIDE 1 MG/2 ML NEBU INHALATION SCH ×2 (07:28→20:57)
[2023-03-26] MEDS: ALBUTEROL NEBULIZED 2.5 MG/3 ML INHALATION SCH ×4 (07:28→20:57)
[2023-03-26] MEDS: DEXAMETHASONE SOD PHOSPHATE 10 MG/ML 1 ML VIAL IVP SCH (08:00)
[2023-03-26] MEDS: ENOXAPARIN 40 MG/0.4 ML SYRINGE SQ SCH (08:18)
[2023-03-26] MEDS: ALPRAZolam 0.5 MG TAB PO PRN ×2 (08:18→19:51)
[2023-03-26] MEDS: ARIPiprazole 2 MG TAB PO SCH (08:18)
[2023-03-26] MEDS: atenoloL 50 MG TAB PO SCH (08:19)
[2023-03-26] MEDS: LEVOTHYROXINE 100 MCG TAB PO SCH (08:19)
[2023-03-26] MEDS: SERTRALINE 50 MG TAB PO SCH (08:19)
[2023-03-26] MEDS: DIVALPROEX 250 MG TABLET.DR PO SCH ×2 (08:19→19:52)
[2023-03-26] MEDS: guaiFENesin-DM 600/30MG 1 EACH TAB.ER.12H PO SCH ×2 (08:19→19:51)
[2023-03-26 10:52] LABS: HCT 39.9 % (37.2-46.3); MCH 29.7 pg (27.0-32.0); MCHC 30.1 d/dL (32.0-37.0); MCV 98.8 FL (80.0-97.0); NRBC Per 100 WBC 0 X 10*3/uL (0.00-0.01); Platelet Count 261 X 10*3/uL (140-440); RBC 4.04 X 10*6/uL (4.10-5.20); RDW 14.1 % (11.5-14.5); WBC 21.72 X 10*3/uL (4.50-10.00)
[2023-03-26 11:03] LABS: ALT 10 U/L (8-44); AST 11 U/L (13-35); Albumin 2.7 d/dL (3.8-4.9); Alkaline Phosphatase 85 U/L (41-126); Blood Urea Nitrogen 12.9 mg/dL (9.0-27.0); Calcium 8.3 mg/dL (8.7-10.3); Carbon Dioxide 32.7 mmol/L (21.6-31.8); Chloride 102 mmol/L (96-109); Globulin 1.8 d/dL (1.6-3.3); Glucose 95 mg/dL (70-110); Potassium 4.7 mmol/L (3.5-5.5); Sodium 144 mmol/L (135-145); Total Bilirubin <0.2 mg/dL (0.3-1.2); Total Protein 4.5 d/dL (6.2-8.2)
--- NOTE | 2023-03-26 17:18 | P.PN ---
Subjective Progress Note Date: 03/26/23 This is a pleasant 82-year-old female with a past medical history significant for COPD/emphysema, chronic hypoxemic respiratory failure on 3 L/m nasal cannula 24/02, left lung squamous cell carcinoma status post chemoradiation, recurrent right-sided pleural effusions with Pleurx catheter inserted December 2020. She also has history of hypertension, hyperlipidemia, hypothyroidism, atrial fibrillation, and right upper extremity DVT. If she was just discharged on 03/03/2023 following concerns regarding bloody fluid from her Pleurx catheter. She presented here to the emergency room yesterday with complaints of increasing anxiety and some altered mental status according to her . Computed tomography scan of the brain revealed no acute intracranial process. Her Pleurx catheter is drained every third day with about 300 ML's of fluid returned. Chest x-ray reveals similar presentation with background COPD changes and right pleural effusion with patchy consolidation. White count 15.8. Hemoglobin 14.2. Platelets 284. Sodium 142. Potassium 4.3. Bicarb 29. BUN 8. Creatinine 0.8. Glucose 113. C-reactive protein 6.4. Pro-calcitonin 0.09. Coronavirus not detected. She is seen today in consultation on the regular medical floor. She is awake and alert. Somewhat anxious. Maintaining O2 saturations in the 90s on 4 L/m per nasal cannula. Afebrile. Hemodynamically stable. On today's evaluation of 03/24/2023, the patient is still having difficulty breathing. She underwent a drainage of the Pleurx catheter on the right and the patient had a total of 300 mL of pleural fluid evacuated. The patient is still coughing some yellowish sputum. There may be a component of COPD exacerbation. The blood gas was done and the patient was having difficulties in her pulse ox recording. The patient is currently on 6 L and the pulse ox 94%. The blood gas showed a pH of 7.42 with a pCO2 of 51 and pO2 of 59 and this was done on 4 L of oxygen by nasal cannula. The white cell count of 16.2 with a hemoglobin 12.6. The patient is hesitant to take any form of steroids due to his altered mentation depression. The previous cigarette 16.2 with a hemoglobin of 12.6. Pro-calcitonin level is at 0.09. The chest x-ray from yesterday showed stable right-sided pleural effusion and patchy consolidation on the right. On today's evaluation of 03/25/2023, the patient is still struggling with her breathing. She has a cough and congestion and she is unable to bring up much sputum. Noted the rest or secretions are quite thick and tenacious. Sample was sent for cultures and is also still pending for now and the patient remains on IV Rocephin for the time being. She is also on Mucinex DM for cough and congestion. She is on DuoNeb nebulized treatments [id number]. She took a dose of Decadron yesterday, unable to tolerate steroids because of cloudiness in her mentation and some increase restlessness. As such, no steroids are being provided this point in time. The chest x-ray was repeated today and there is opacification of the right lung base. There is a Pleurx catheter in good location. There may be an underlying consolidation/pneumonia. The left lung is essentially clear. His volume is in the right as noted on the chest x-ray. The white cell count from yesterday was at 16.2. She remains on oxygen and she is on 6 L. She has poor respiratory reserve and she gets short of breath with minimal amount of activity. On 03/26/2023, I'm seeing the patient for a follow-up. Limited progress since yesterday. She continues to have significant respiratory distress and insufficiency. She remains on 6 L of oxygen by nasal cannula. She is coughing up thick mucus yellow in color. She will going to be offered a flutter valve. The sputum sample that was sent earlier was negative for any microbial growth. I switched this patient's antibiotic coverage to include a combination of Zosyn and Zithromax. The white cell count is elevated at 21.7. Hemoglobin is 12. BUN is at 12 with a creatinine of 0.6 and a sodium level is at 144. She remains quite short of breath and she has limited respiratory reserve and she gets short of breath with minimal amount of activity. At times, she is also having cloudiness in her mentation. Objective - Vital Signs Vital signs: Vital Signs Temp 98.5 F 03/26/23 07:26 Pulse 87 03/26/23 07:55 Resp 18 03/26/23 07:26 BP 134/76 03/26/23 07:26 Pulse Ox 93 L 03/26/23 07:32 FiO2 Intake & Output 03/25/23 03/26/23 03/26/23 18:59 06:59 18:59 Other: # Voids 3 - Exam GENERAL EXAM: Alert, anxious 82-year-old female on 6 L nasal cannula, fairly comfortable in no apparent distress. HEAD: Normocephalic. EYES: Normal reaction of pupils, equal size. NOSE: Clear with pink turbinates. THROAT: No erythema or exudates. NECK: No masses, no JVD. CHEST: No chest wall deformity. Pleurx catheter remains in place to the right chest. LUNGS: Equal air entry with crackles in the right lung base. CVS: S1 and S2 normal with no audible murmur, regular rhythm. ABDOMEN: No hepatosplenomegaly, normal bowel sounds, no guarding or rigidity. SPINE: No scoliosis or deformity SKIN: No rashes CENTRAL NERVOUS SYSTEM: No focal deficits, tone is normal in all 4 extremities. EXTREMITIES: There is no peripheral edema. No clubbing, no cyanosis. Peripheral pulses are intact. - Labs CBC & Chem 7: 03/26/23 05:56 03/26/23 05:56 Labs: Microbiology - Last 24 Hours (Table) 03/24/23 11:39 Gram Stain - Final Sputum Sputum Culture - Final 03/22/23 17:50 Gram Stain - Final Sputum Sputum Culture - Final 03/22/23 08:40 Blood Culture - Preliminary Blood 03/22/23 20:45 Blood Culture - Preliminary Blood Assessment and Plan Plan: Acute on chronic hypoxemic respiratory failure due to chronic changes in the right chest, unchanged. Pleurx catheter remains in place. The patient is currently on 6 L of oxygen by nasal cannula. No interval worsening in oxygenation. Nevertheless, the patient appears to have cough and congestion of respiratory insufficiency and her respiratory reserve is very limited and poor. She gets short of breath with minimal amount of activity and even at rest. Ideally, she would benefit from bronchoscopy for therapeutic airway suctioning and pulmonary toileting. Nevertheless, this may be quite risky as the patient may decompensate during the procedure. I reviewed the repeat chest x-ray and there is ongoing consolidation of the right lung base and a superimposed pneumonia cannot be completely ruled out. Anxiety secondary to above Shortness of breath, multifactorial. The patient has COPD and history of small cell lung cancer with a recurrent right-sided pleural effusion. Superinfection cannot be completely ruled out. Pro-calcitonin level is nonelevated. 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 PET scan performed in February 2023 showed no suspicious uptake suggesting metastatic disease. There was a small to moderate loculated right pleural fluid collection. The patient has had a chronic right-sided pleural effusion and she has undergone episodic drainage for a Pleurx catheter on the right lung. Repeated pleural fluid cytology has been negative for malignancy. There is a concern for a pleural space infection. Previous pleural fluid has shown polymicrobial growth which I think is contaminant. There may be value to repeat a pleural fluid culture. History of COPD Benign essential hypertension Hyperlipidemia Hypothyroidism Remote history of right upper extremity DVT, not anticoagulated Plan: Limited progress since yesterday Continue respiratory support Aggressive pulmonary toileting Continue Zosyn and Zithromax we'll continue periodic evacuation of the right-sided pleural effusion through her Pleurx catheter She is unable to take any steroids due to cloudiness and altered mentation and psychiatric agitation Continue bronchodilators Procalcitonin within normal limits Hospice consult has been initiated although the patient is not interested in hospice at this point in time Continue anxiolytics Titrate the FiO2 as tolerated High risk for bronchoscopy due to progression into respiratory failure We will continue to follow and make further recommendations based on her clinical status Long-term prognosis poor. She is a DNR/DNI CODE STATUS. Not ready for hospice yet.
--- NOTE | 2023-03-26 19:04 | P.PN ---
Subjective Progress Note Date: 03/26/23 Hospital course: Patient is a very pleasant 82-year-old female with a past medical history of COPD with chronic hypoxic respiratory failure on 4 L O2 nasal cannula at all times, small cell lung cancer in 2016 status post chemo and radiation currently in remission, chronic right pleural effusion with Pleurx catheter in place 2 years, hypertension, and hyperlipidemia. She presented to the hospital on 03/22/23 secondary to worsening shortness of breath. Upon arrival to the hospital patient underwent full evaluation. Chest x-ray was completed showing overall similar examination with background COPD changes and right pleural effusion and patchy consolidation, unable to rule out pneumonia. EKG was completed showing normal sinus rhythm at 66 bpm with no noted T-wave or ST abnor malities upon personal review and interpretation. CT head also completed negative for acute intercranial process showing nonspecific white matter changes. Labs completed and reviewed. CBC showing leukocytosis with WBC count of 15.8. Venous blood gas showing elevated patient was admitted under our services with consultation to pulmonology and cardiothoracic surgery. Valproic acid level was obtained resulting slightly subtherapeutic at 44.1. Covid PCR negative. CRP elevated at 6.40. Patient was started on IV antibiotics with Zosyn and azithromycin. Pro-calcitonin negative at 0.09 and antibiotics discontinued at this time. On the morning of 03/24/23, cardiothoracic surgery drained 350 mL out of right lung from Pleurx catheter. Patient continued with worsening shortness of breath and was on 6 L O2 via nasal cannula with SpO2 of 86%. Order placed for stat ABG showingcompensated respiratory acidosis with pH of 7.42, pCO2 51, PaO2 59, bicarb 33, and O2 saturation of 89.7. Physical exam: Patient was seen and fully evaluated at bedside this morning. Patient appears more relaxed this morning and not as anxious. She continues to have increased oxygen requirements and remains on 6 L O2 maintaining SpO2 between 87 and 92%. Patient had meeting with hospice yesterday but would not allow them in the room as she was not willing to discuss hospice or palliative care at this time. We'll continue to educate patient on palliative care as patient will likely have increased needs once she is able to be discharged. Patient currently with poor prognosis. Vital signs reviewed and stable. General: Nontoxic, no distress and appears stated age. Derm: Skin warm and dry, normal coloration for ethnicity. Head: Atraumatic, normocephalic and symmetric. Eyes: EOMs intact, no lid lag, and anicteric sclera Mouth: no lip lesions, mucus membranes moist Cardiovascular: regular rate and rhythm with normal S1S2, no murmur, positive posterior tibial pulses bilaterally, and cap refill < 2 seconds. Lungs: Respirations increased respiratory effort. Lungs tight with diffuse expiratory wheezes bilaterally and coarse rhonchi right lower and middle lobe. Patient on 6 L O2 via nasal cannula with current SpO2 87%. Abdominal: soft, nontender to palpation, no guarding, no appreciable organomegaly Ext: ROM intact. No gross muscle atrophy, no edema, no contractures Neuro: Speech clear, face symmetrical and CN II-XII grossly intact with no noted focal neuro deficits Psych: Alert and oriented to person, place, time, and situation. Appropriate and pleasant affect. Assessment and Plan of Care: Acute on chronic respiratory failure with hypoxia and hypercarbia COPD with acute exacerbation Chronic right pleural effusion with Pleurx catheter History of small cell lung cancer status post chemo and radiation in 2016 currently in remission -Pulmonology following, discussed patient condition and plan of care. -Oxygenation to be administered and titrated as needed to maintain SPO2 equal to or greater than 92% -Telemetry monitoring. -Monitor Pulse-oximetry -Continue nebulized albuterol treatments 4 times daily scheduled and Duonebs every 2 hours as needed for SOB and/or wheezing -Continue Pulmicort and formoterol. -Steroids: Decadron 6 mg daily. -Antibiotics received: Patient received 2 day course of Zosyn and azithromycin. This was discontinued after negative pro-calcitonin on 03/23/23 and patient was placed on Rocephin 1 g daily. Patient showing no improvements and on 03/25/23 cost accounting clerk discontinued Rocephin and started patient back on Zosyn -Legionella antigen negative. Hypertension Vital signs reviewed and stable. Patient to continue with atenolol 50 mg alex y. Hypothyroidism Patient to continue daily medication regimen with levothyroxine 100 g daily. Hyperlipidemia Patient to continue with daily medication regimen with atorvastatin 20 mg nightly. Moderate protein calorie malnutrition Albumin 3.1, total protein 5.8. Patient to continue with Premier protein supplements 3 times daily between meals. Dietitian following. Data review: Morning labs reviewed. Blood cultures and sputum cultures showing no growth to date. Legionella antigen negative. Vital signs reviewed. Blood pressure 1:30/76, heart rate 87, respiratory rate 18, temp 98.5F, SpO2 of 92% on 6 L. Patient currently with poor prognosis. CODE STATUS: DO NOT RESUSCITATE, patient NO to CPR and YES to intubation and mechanical ventilation. DVT prophylaxis: Lovenox Discussed with: Patient, RN, and cost accounting clerk Anticipated discharge date: Clinical course to determine Anticipated discharge place: Home Patient was seen independently by Nurse Pracitioner. This document was prepared using [employer] dictation software. Please allow for errors in respiratory care faculty, while rare they do occur. Saúl Olson NP rendered care for this patient independently, reviewed the findings and plan as documented in the note above. I did not physically speak with or examine the patient on this date. Objective - Vital Signs Vital signs: Vital Signs Temp 98.0 F 03/26/23 00:00 Pulse 87 03/26/23 07:55 Resp 18 03/26/23 00:00 BP 135/80 03/26/23 00:00 Pulse Ox 93 L 03/26/23 07:32 FiO2 Intake & Output 03/25/23 03/26/23 03/26/23 18:59 06:59 18:59 Other: # Voids 3 - Labs CBC & Chem 7: 03/29/23 07:38 03/29/23 07:38 Labs: Microbiology - Last 24 Hours (Table) 03/22/23 08:40 Blood Culture - Preliminary Blood 03/22/23 20:45 Blood Culture - Preliminary Blood 03/22/23 17:50 Gram Stain - Preliminary Sputum Sputum Culture - Preliminary 03/24/23 11:39 Gram Stain - Preliminary Sputum
[2023-03-26] MEDS: MIRTAZAPINE 15 MG TAB PO SCH (19:51)
[2023-03-26] MEDS: ATORVASTATIN 20 MG TAB PO SCH (19:52)
[2023-03-26] MEDS: ASPIRIN 81 MG PO SCH (19:52)
[2023-03-27] MEDS: PIPERACILLIN-TAZOBACTAM 3.375 GM in SODIUM CHLORIDE 0.9% 100 ML IVPB SCH ×3 (00:23→17:30)
[2023-03-27] MEDS: ALPRAZolam 0.5 MG TAB PO PRN ×3 (04:43→21:06)
[2023-03-27] MEDS: IPRATROPIUM-ALBUTEROL 3 ML NEB INHALATION PRN (05:22)
[2023-03-27] MEDS: ALBUTEROL NEBULIZED 2.5 MG/3 ML INHALATION SCH ×4 (08:15→21:32)
[2023-03-27] MEDS: FORMOTEROL FUMARATE 20 MCG/2 ML NEBU INHALATION SCH ×2 (08:15→21:32)
[2023-03-27] MEDS: BUDESONIDE 1 MG/2 ML NEBU INHALATION SCH ×2 (08:15→21:32)
[2023-03-27] MEDS: atenoloL 50 MG TAB PO SCH (08:57)
[2023-03-27] MEDS: SERTRALINE 50 MG TAB PO SCH (08:57)
[2023-03-27] MEDS: ENOXAPARIN 40 MG/0.4 ML SYRINGE SQ SCH (08:57)
[2023-03-27] MEDS: LEVOTHYROXINE 100 MCG TAB PO SCH (08:58)
[2023-03-27] MEDS: ARIPiprazole 2 MG TAB PO SCH (08:59)
[2023-03-27] MEDS: guaiFENesin-DM 600/30MG 1 EACH TAB.ER.12H PO SCH ×2 (08:59→20:54)
[2023-03-27] MEDS: DIVALPROEX 250 MG TABLET.DR PO SCH ×2 (08:59→20:54)
[2023-03-27] MEDS: DEXAMETHASONE SOD PHOSPHATE 10 MG/ML 1 ML VIAL IVP SCH (09:01)
--- NOTE | 2023-03-27 09:48 | P.PN ---
Subjective Progress Note Date: 03/27/23 Hospital course: Patient is a very pleasant 82-year-old female with a past medical history of COPD with chronic hypoxic respiratory failure on 4 L O2 nasal cannula at all times, small cell lung cancer in 2016 status post chemo and radiation currently in remission, chronic right pleural effusion with Pleurx catheter in place 2 years, hypertension, and hyperlipidemia. She presented to the hospital on 03/22/23 secondary to worsening shortness of breath. Upon arrival to the hospital patient underwent full evaluation. Chest x-ray was completed showing overall similar examination with background COPD changes and right pleural effusion and patchy consolidation, unable to rule out pneumonia. EKG was completed showing normal sinus rhythm at 66 bpm with no noted T-wave or ST abnor malities upon personal review and interpretation. CT head also completed negative for acute intercranial process showing nonspecific white matter changes. Labs completed and reviewed. CBC showing leukocytosis with WBC count of 15.8. Venous blood gas showing elevated patient was admitted under our services with consultation to pulmonology and cardiothoracic surgery. Valproic acid level was obtained resulting slightly subtherapeutic at 44.1. Covid PCR negative. CRP elevated at 6.40. Patient was started on IV antibiotics with Zosyn and azithromycin. Pro-calcitonin negative at 0.09 and antibiotics discontinued at this time. On the morning of 03/24/23, cardiothoracic surgery drained 350 mL out of right lung from Pleurx catheter. Patient continued with worsening shortness of breath and was on 6 L O2 via nasal cannula with SpO2 of 86%. Order placed for stat ABG showingcompensated respiratory acidosis with pH of 7.42, pCO2 51, PaO2 59, bicarb 33, and O2 saturation of 89.7. Physical exam: Patient continues to be significantly short of breath on 6 L O2 via nasal cannula. Vital signs reviewed and stable. General: Nontoxic, no distress and appears stated age. Derm: Skin warm and dry, normal coloration for ethnicity. Head: Atraumatic, normocephalic and symmetric. Eyes: EOMs intact, no lid lag, and anicteric sclera Mouth: no lip lesions, mucus membranes moist Cardiovascular: regular rate and rhythm with normal S1S2, no murmur, positive posterior tibial pulses bilaterally, and cap refill < 2 seconds. Lungs: Respirations increased respiratory effort. Lungs tight with diffuse expiratory wheezes bilaterally and coarse rhonchi right lower and middle lobe. Patient on 6 L O2 via nasal cannula with current SpO2 87%. Abdominal: soft, nontender to palpation, no guarding, no appreciable organomegaly Ext: ROM intact. No gross muscle atrophy, no edema, no contractures Neuro: Speech clear, face symmetrical and CN II-XII grossly intact with no noted focal neuro deficits Psych: Alert and oriented to person, place, time, and situation. Appropriate and pleasant affect. Assessment and Plan of Care: Acute on chronic respiratory failure with hypoxia and hypercarbia COPD with acute exacerbation Chronic right pleural effusion with Pleurx catheter History of small cell lung cancer status post chemo and radiation in 2016 currently in remission -Pulmonology following, discussed patient condition and plan of care. -Oxygenation to be administered and titrated as needed to maintain SPO2 equal to or greater than 88%. Patient remains on 6 L O2 via nasal cannula -Telemetry monitoring. -Monitor Pulse-oximetry -Continue nebulized albuterol treatments 4 times daily scheduled and Duonebs every 2 hours as needed for SOB and/or wheezing -Continue Pulmicort and formoterol. -Patient to be encouraged to use flutter valve -Steroids: Continue with Decadron 6 mg daily. -Antibiotics received: Patient received 2 day course of Zosyn and azithromycin. This was discontinued after negative pro-calcitonin on 03/23/23 and patient was placed on Rocephin 1 g daily. Patient showing no improvements and on 03/25/23 hog tender discontinued Rocephin and started patient back on Zosyn. After discussion with hog tender and per his recommendations on 03/27/23 azithromycin was added back into antibiotic regimen with Zosyn. -Legionella antigen negative. Hypertension Vital signs reviewed and stable. Patient to continue with atenolol 50 mg daily. Hypothyroidism Patient to continue daily medication regimen with levothyroxine 100 g daily. Hyperlipidemia Patient to continue with daily medication regimen with atorvastatin 20 mg nightly. Moderate protein calorie malnutrition Albumin 3.1, total protein 5.8. Patient to continue with Premier protein supplements 3 times daily between meals. Dietitian following. Data review: Morning labs reviewed. Blood cultures and sputum cultures showing no growth to date. Vital signs reviewed. Blood pressure 102/63, heart rate 100, respiratory rate 17, temp 97.3F, and SpO2 of 95% on 6 L. Patient currently with poor prognosis. CODE STATUS: DO NOT RESUSCITATE, patient NO to CPR and YES to intubation and mechanical ventilation. DVT prophylaxis: Lovenox Discussed with: Patient, RN, and hog tender Anticipated discharge date: Clinical course to determine Anticipated discharge place: Home Patient was seen independently by Nurse Pracitioner. This document was prepared using [employer] dictation software. Please allow for errors in analyst sales, while rare they do occur. Saúl Olson STOCK RANCH SUPERVISOR rendered care for this patient independently, reviewed the findings and plan as documented in the note above. I did not physically speak with or examine the patient on this date. Objective - Vital Signs Vital signs: Vital Signs Temp 97.3 F L 03/27/23 07:00 Pulse 92 03/27/23 08:17 Resp 17 03/27/23 07:00 BP 102/63 03/27/23 07:00 Pulse Ox 98 03/27/23 07:00 FiO2 Intake & Output 03/26/23 03/27/23 03/27/23 18:59 06:59 18:59 Other: # Voids 2 2 - Labs CBC & Chem 7: 03/29/23 07:38 03/29/23 07:38 Labs: Abnormal Lab Results - Last 24 Hours (Table) 03/26/23 03/26/23 Range/Units 05:56 05:56 WBC 21.72 H (4.50-10.00) X 10*3/uL RBC 4.04 L (4.10-5.20) X 10*6/uL MCV 98.8 H (80.0-97.0) FL MCHC 30.1 L (32.0-37.0) d/dL Carbon Dioxide 32.7 H (21.6-31.8) mmol/L BUN/Creatinine Ratio 21.50 H (12.00-20.00) Ratio Calcium 8.3 L (8.7-10.3) mg/dL Total Bilirubin <0.2 L (0.3-1.2) mg/dL AST 11 L (13-35) U/L Total Protein 4.5 L (6.2-8.2) d/dL Albumin 2.7 L (3.8-4.9) d/dL Albumin/Globulin Ratio 1.50 L (1.60-3.17) Ratio Microbiology - Last 24 Hours (Table) 03/26/23 14:35 Gram Stain - Preliminary Sputum 03/22/23 20:45 Blood Culture - Preliminary Blood 03/24/23 11:39 Gram Stain - Final Sputum Sputum Culture - Final 03/22/23 17:50 Gram Stain - Final Sputum Sputum Culture - Final
[2023-03-27 10:53] LABS: HGB 11.7 gm/dL (11.4-16.0); Hypochromasia Moderate; MCH 30.4 pg (25.0-35.0); MCHC 31.6 g/dL (31.0-37.0); MCV 96.3 fL (80.0-100.0); Mean Platelet Volume 7.7; Platelet Count 223 k/uL (150-450); RBC 3.84 m/uL (3.80-5.40); RDW 13.6 % (11.5-15.5); WBC 23.8 k/uL (3.8-10.6)
[2023-03-27 10:54] LABS: ALT 16 U/L (4-34); AST 18 U/L (14-36); African American GFR (CKD) >90 (>60 ml/min/1.73 sqM); Albumin 2.3 g/dL (3.5-5.0); Alkaline Phosphatase 86 U/L (38-126); Anion Gap 3 mmol/L; Blood Urea Nitrogen 16 mg/dL (7-17); Carbon Dioxide 32 mmol/L (22-30); Chloride 104 mmol/L (98-107); Globulin 2.3 g/dL; Glucose 130 mg/dL (74-99); Magnesium 2.2 mg/dL (1.6-2.3); Non-African American GFR(CKD) 85 (>60 ml/min/1.73 sqM); Potassium 4.5 mmol/L (3.5-5.1); Sodium 139 mmol/L (137-145); Total Bilirubin 0.3 mg/dL (0.2-1.3); Total Protein 4.6 g/dL (6.3-8.2)
--- NOTE | 2023-03-27 11:52 | XR ---
EXAMINATION TYPE: XR chest 1V DATE OF EXAM: 03/27/2023 COMPARISON: 03/25/2023 HISTORY: Shortness of breath TECHNIQUE: Single frontal view of the chest is obtained. FINDINGS: Volume loss with prominence of the right hilum, right lower lobe consolidation and pleural effusion. Chest tube overlies the right lower lobe stable. Rib deformities with no pneumothorax. Subsegmental changes and minimal blunting left costophrenic angle stable. Underlying COPD suspected. Heart size stable. Atherosclerotic change aorta. Diffuse osteopenia. IMPRESSION: Stable lower lobe consolidation and pleural effusion unchanged from prior exam.
[2023-03-27] MEDS: AZITHROMYCIN 500 MG in SODIUM CHLORIDE 0.9% 250 ML IVPB SCH (13:07)
--- NOTE | 2023-03-27 16:49 | P.PN ---
Subjective Progress Note Date: 03/27/23 This is a pleasant 82-year-old female with a past medical history significant for COPD/emphysema, chronic hypoxemic respiratory failure on 3 L/m nasal cannula 24/02, left lung squamous cell carcinoma status post chemoradiation, recurrent right-sided pleural effusions with Pleurx catheter inserted December 2020. She also has history of hypertension, hyperlipidemia, hypothyroidism, atrial fibrillation, and right upper extremity DVT. If she was just discharged on 03/03/2023 following concerns regarding bloody fluid from her Pleurx catheter. She presented here to the emergency room yesterday with complaints of increasing anxiety and some altered mental status according to her . Computed tomography scan of the brain revealed no acute intracranial process. Her Pleurx catheter is drained every third day with about 300 ML's of fluid returned. Chest x-ray reveals similar presentation with background COPD changes and right pleural effusion with patchy consolidation. White count 15.8. Hemoglobin 14.2. Platelets 284. Sodium 142. Potassium 4.3. Bicarb 29. BUN 8. Creatinine 0.8. Glucose 113. C-reactive protein 6.4. Pro-calcitonin 0.09. Coronavirus not detected. She is seen today in consultation on the regular medical floor. She is awake and alert. Somewhat anxious. Maintaining O2 saturations in the 90s on 4 L/m per nasal cannula. Afebrile. Hemodynamically stable. On today's evaluation of 03/24/2023, the patient is still having difficulty breathing. She underwent a drainage of the Pleurx catheter on the right and the patient had a total of 300 mL of pleural fluid evacuated. The patient is still coughing some yellowish sputum. There may be a component of COPD exacerbation. The blood gas was done and the patient was having difficulties in her pulse ox recording. The patient is currently on 6 L and the pulse ox 94%. The blood gas showed a pH of 7.42 with a pCO2 of 51 and pO2 of 59 and this was done on 4 L of oxygen by nasal cannula. The white cell count of 16.2 with a hemoglobin 12.6. The patient is hesitant to take any form of steroids due to his altered mentation depression. The previous cigarette 16.2 with a hemoglobin of 12.6. Pro-calcitonin level is at 0.09. The chest x-ray from yesterday showed stable right-sided pleural effusion and patchy consolidation on the right. On today's evaluation of 03/25/2023, the patient is still struggling with her breathing. She has a cough and congestion and she is unable to bring up much sputum. Noted the rest or secretions are quite thick and tenacious. Sample was sent for cultures and is also still pending for now and the patient remains on IV Rocephin for the time being. She is also on Mucinex DM for cough and congestion. She is on DuoNeb nebulized treatments [id number]. She took a dose of Decadron yesterday, unable to tolerate steroids because of cloudiness in her mentation and some increase restlessness. As such, no steroids are being provided this point in time. The chest x-ray was repeated today and there is opacification of the right lung base. There is a Pleurx catheter in good location. There may be an underlying consolidation/pneumonia. The left lung is essentially clear. His volume is in the right as noted on the chest x-ray. The white cell count from yesterday was at 16.2. She remains on oxygen and she is on 6 L. She has poor respiratory reserve and she gets short of breath with minimal amount of activity. On 03/26/2023, I'm seeing the patient for a follow-up. Limited progress since yesterday. She continues to have significant respiratory distress and insufficiency. She remains on 6 L of oxygen by nasal cannula. She is coughing up thick mucus yellow in color. She will going to be offered a flutter valve. The sputum sample that was sent earlier was negative for any microbial growth. I switched this patient's antibiotic coverage to include a combination of Zosyn and Zithromax. The white cell count is elevated at 21.7. Hemoglobin is 12. BUN is at 12 with a creatinine of 0.6 and a sodium level is at 144. She remains quite short of breath and she has limited respiratory reserve and she gets short of breath with minimal amount of activity. At times, she is also having cloudiness in her mentation. On today's evaluation of 03/27/2023, seeing the patient for a follow-up. The patient is still struggling with her breathing. Earlier this morning, she had increased shortness of breath and the patient was placed on a simple face mask. She is using a flutter valve. She is cough and mucus. A repeat chest x-ray was done and showed a stable consolidation and pleural effusion which is essentially unchanged and most of the abnormalities are in the right lower lobe. We are going to drain the right-sided pleural effusion as the patient has a Pleurx catheter and she receives periodic drainage and we will continue the current a ntibiotic coverage included a combination of Zosyn and Zithromax. The labs from today shows a diminished count 23.8 with a hemoglobin of 11.7. The BUN is at 16 with a creatinine of 0.6 and a sodium level is at 139. The rest of the electrolytes are all within normal limits. We will going to transition her back to nasal cannula. She is requiring approximately 6 L of oxygen nasal cannula. Minimal progress of any and I would say condition is essentially unchanged over the past 24 hours. Objective - Vital Signs Vital signs: Vital Signs Temp 97.3 F L 03/27/23 07:00 Pulse 100 03/27/23 08:35 Resp 17 03/27/23 07:00 BP 102/63 03/27/23 07:00 Pulse Ox 98 03/27/23 07:00 FiO2 50 03/27/23 08:50 Intake & Output 03/26/23 03/27/23 03/27/23 18:59 06:59 18:59 Other: # Voids 2 2 - Exam GENERAL EXAM: Alert, anxious 82-year-old female on 6 L nasal cannula, fairly comfortable in no apparent distress. HEAD: Normocephalic. EYES: Normal reaction of pupils, equal size. NOSE: Clear with pink turbinates. THROAT: No erythema or exudates. NECK: No masses, no JVD. CHEST: No chest wall deformity. Pleurx catheter remains in place to the right chest. LUNGS: Equal air entry with crackles in the right lung base. CVS: S1 and S2 normal with no audible murmur, regular rhythm. ABDOMEN: No hepatosplenomegaly, normal bowel sounds, no guarding or rigidity. SPINE: No scoliosis or deformity SKIN: No rashes CENTRAL NERVOUS SYSTEM: No focal deficits, tone is normal in all 4 extremities. EXTREMITIES: There is no peripheral edema. No clubbing, no cyanosis. Peripheral pulses are intact. - Labs CBC & Chem 7: 03/27/23 10:17 08/24/23 10:17 Labs: Abnormal Lab Results - Last 24 Hours (Table) 03/26/23 03/26/23 Range/Units 05:56 05:56 WBC 21.72 H (4.50-10.00) X 10*3/uL RBC 4.04 L (4.10-5.20) X 10*6/uL MCV 98.8 H (80.0-97.0) FL MCHC 30.1 L (32.0-37.0) d/dL Carbon Dioxide 32.7 H (21.6-31.8) mmol/L BUN/Creatinine Ratio 21.50 H (12.00-20.00) Ratio Calcium 8.3 L (8.7-10.3) mg/dL Total Bilirubin <0.2 L (0.3-1.2) mg/dL AST 11 L (13-35) U/L Total Protein 4.5 L (6.2-8.2) d/dL Albumin 2.7 L (3.8-4.9) d/dL Albumin/Globulin Ratio 1.50 L (1.60-3.17) Ratio Microbiology - Last 24 Hours (Table) 03/26/23 14:35 Gram Stain - Preliminary Sputum 03/22/23 20:45 Blood Culture - Preliminary Blood 03/24/23 11:39 Gram Stain - Final Sputum Sputum Culture - Final 03/22/23 17:50 Gram Stain - Final Sputum Sputum Culture - Final Assessment and Plan Plan: Acute on chronic hypoxemic respiratory failure due to chronic changes in the right chest, unchanged. Pleurx catheter remains in place. The patient is currently on 6 L of oxygen by nasal cannula. No interval worsening in oxygenation. Nevertheless, the patient appears to have cough and congestion of respiratory insufficiency and her respiratory reserve is very limited and poor. She gets short of breath with minimal amount of activity and even at rest. Ideally, she would benefit from bronchoscopy for therapeutic airway suctioning and pulmonary toileting. Nevertheless, this may be quite risky as the patient may decompensate during the procedure. I reviewed the repeat chest x-ray and there is ongoing consolidation of the right lung base and a superimposed pneumonia cannot be completely ruled out. Condition is essentially the same with periodic exacerbation of her shortness of breath over the past 24-48 hours. She was placed on a Ventimask and currently she is back on 6 L O2 nasal cannula. Anxiety secondary to above Shortness of breath, multifactorial. The patient has COPD and history of small cell lung cancer with a recurrent right-sided pleural effusion. Superinfection cannot be completely ruled out. Pro-calcitonin level is nonelevated. 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 PET scan performed in February 2023 showed no suspicious uptake suggesting metastatic disease. There was a small to moderate loculated right pleural fluid collection. The patient has had a chronic right-sided pleural effusion and she has undergone episodic drainage for a Pleurx catheter on the right lung. Repeated pleural fluid cytology has been negative for malignancy. There is a concern for a pleural space infection. Previous pleural fluid has shown polymicrobial growth which I think is contaminant. There may be value to repeat a pleural fluid culture. History of COPD Benign essential hypertension Hyperlipidemia Hypothyroidism Remote history of right upper extremity DVT, not anticoagulated Plan: Limited progress since yesterday Continues to have respiratory insufficiency Aggressive pulmonary toileting Continue Zosyn and Zithromax Clinically the right-sided pleural effusion via Pleurx Continue all aggressive pulmonary toileting, flutter valve, bronchodilators. Wean FiO2 as tolerated The patient is showing a stable consolidation/effusion the right lung base Obtain a noncontrast CAT scan of the chest We will continue to follow and make further recommendations based on her clinical status Long-term prognosis poor. She is a DNR/DNI CODE STATUS. Not ready for hospice yet.
[2023-03-27] MEDS: SODIUM CHLORIDE 0.9% 1,000 ML IV SCH (18:32)
[2023-03-27] MEDS: ASPIRIN 81 MG PO SCH (20:54)
[2023-03-27] MEDS: MELATONIN 3 MG TABLET PO PRN (20:54)
[2023-03-27] MEDS: ATORVASTATIN 20 MG TAB PO SCH (20:54)
[2023-03-27] MEDS: MIRTAZAPINE 15 MG TAB PO SCH (20:54)
--- NOTE | 2023-03-27 23:29 | CT ---
EXAMINATION TYPE: CT chest wo con CT DLP: 252.5 mGycm, Automated exposure control for dose reduction was used. DATE OF EXAM: 03/27/2023 11:17 PM COMPARISON: Chest radiograph from same day. CT chest abdomen pelvis 03/06/2022 CLINICAL INDICATION:Female, 82 years old with history of Persistent shortness of breath, right lung p neumon; PHH, PERSISTENT SOB, RT LUNG PNEUMONIA TECHNIQUE: Multiple axial images were obtained through the chest without IV contrast. Lack of IV or o ral contrast limits evaluation of solid and hollow organ viscera. . Coronal and sagittal reformats re viewed. FINDINGS: LUNGS/ PLEURA: Moderate to severe centrilobular emphysematous changes. Moderate size thick-walled rig ht inferior fusion with pleural catheter in place. Additional more loculated medial right lower lung 2.9 x 1.8 cm thick-walled collection (series 201, image 63). And additional thick walled 4.0 x 5.9 cm loculated collection within the superior segment of the left lower lobe (series 101, image 41) retic ular opacities and consolidation identified within the right lung most prominently within the right m id to lower lung. No pneumothorax. Small left pleural effusion. No gas within either collections. AIRWAY: Patent and unremarkable.. HEART: Size within normal limits. No pericardial effusion. Moderate coronary artery calcifications. MEDIASTINUM: No gross evidence of adenopathy. VASCULATURE: No aortic aneurysm. Atherosclerotic calcification of the aorta and its branches. MUSCULOSKELETAL: Moderate disc degeneration changes are present throughout the thoracolumbar spine. N o acute osseous abnormality. Remote right-sided rib fractures. SOFT TISSUES/LYMPH NODES: Unremarkable. LOWER NECK: No significant findings. UPPER ABDOMEN: No significant findings. IMPRESSION: 1. Moderate size right pleural effusion with thick wall and pleural catheter in place. This raises co ncern for empyema. Correlate with drainage catheter output. There are 2 loculated thick-walled collec tions within the right mid and upper lung also suspicious for possible empyemas versus loculated pleu ral effusions. 2. Reticular opacities and consolidation throughout the right lung most prominent within the base. Th is is most consistent with pneumonia. 3. Small left pleural effusion with associated atelectasis. 4. Moderate to severe COPD changes.
[2023-03-28] MEDS ORDERED: ALPRAZolam 0.5 MG TAB ONE (06:48)
[2023-03-28] MEDS: AZITHROMYCIN 500 MG in SODIUM CHLORIDE 0.9% 250 ML IVPB SCH (08:55)
[2023-03-28] MEDS: ARIPiprazole 2 MG TAB PO SCH (08:57)
[2023-03-28] MEDS: guaiFENesin-DM 600/30MG 1 EACH TAB.ER.12H PO SCH ×2 (08:57→21:10)
[2023-03-28] MEDS: ENOXAPARIN 40 MG/0.4 ML SYRINGE SQ SCH (08:58)
[2023-03-28] MEDS: atenoloL 50 MG TAB PO SCH (08:58)
[2023-03-28] MEDS: DEXAMETHASONE SOD PHOSPHATE 10 MG/ML 1 ML VIAL IVP SCH (08:58)
[2023-03-28] MEDS: DIVALPROEX 250 MG TABLET.DR PO SCH ×2 (08:58→21:10)
[2023-03-28] MEDS: LEVOTHYROXINE 100 MCG TAB PO SCH (08:58)
[2023-03-28] MEDS: SERTRALINE 50 MG TAB PO SCH (08:58)
[2023-03-28] MEDS: BUDESONIDE 1 MG/2 ML NEBU INHALATION SCH ×2 (09:08→20:49)
[2023-03-28] MEDS: ALBUTEROL NEBULIZED 2.5 MG/3 ML INHALATION SCH ×4 (09:08→20:49)
[2023-03-28] MEDS: FORMOTEROL FUMARATE 20 MCG/2 ML NEBU INHALATION SCH ×2 (09:09→20:49)
[2023-03-28 09:33] LABS: HCT 41.9 % (34.0-46.0); HGB 12.9 gm/dL (11.4-16.0); Hypochromasia Marked; MCH 29.7 pg (25.0-35.0); MCHC 30.7 g/dL (31.0-37.0); MCV 96.6 fL (80.0-100.0); Platelet Count 254 k/uL (150-450); RBC 4.34 m/uL (3.80-5.40); RDW 13.5 % (11.5-15.5); WBC 29.7 k/uL (3.8-10.6)
[2023-03-28 09:43] LABS: ALT 18 U/L (4-34); AST 25 U/L (14-36); African American GFR (CKD) >90 (>60 ml/min/1.73 sqM); Albumin 2.6 g/dL (3.5-5.0); Alkaline Phosphatase 105 U/L (38-126); Anion Gap 4 mmol/L; Blood Urea Nitrogen 16 mg/dL (7-17); Carbon Dioxide 32 mmol/L (22-30); Chloride 103 mmol/L (98-107); Globulin 2.5 g/dL; Glucose 106 mg/dL (74-99); Magnesium 2.3 mg/dL (1.6-2.3); Non-African American GFR(CKD) 82 (>60 ml/min/1.73 sqM); Potassium 4.6 mmol/L (3.5-5.1); Sodium 139 mmol/L (137-145); Total Bilirubin 0.3 mg/dL (0.2-1.3); Total Protein 5.1 g/dL (6.3-8.2)
--- NOTE | 2023-03-28 09:44 | P.PN ---
Subjective Progress Note Date: 03/28/23 Hospital course: Patient is a very pleasant 82-year-old female with a past medical history of COPD with chronic hypoxic respiratory failure on 4 L O2 nasal cannula at all times, small cell lung cancer in 2016 status post chemo and radiation currently in remission, chronic right pleural effusion with Pleurx catheter in place 2 years, hypertension, and hyperlipidemia. She presented to the hospital on 03/22/23 secondary to worsening shortness of breath. Upon arrival to the hospital patient underwent full evaluation. Chest x-ray was completed showing overall similar examination with background COPD changes and right pleural effusion and patchy consolidation, unable to rule out pneumonia. EKG was completed showing normal sinus rhythm at 66 bpm with no noted T-wave or ST abnormalities upon personal review and interpretation. CT head also completed negative for acute intercranial process showing nonspecific white matter changes. Labs completed and reviewed. CBC showing leukocytosis with WBC count of 15.8. Venous blood gas showing elevated patient was admitted under our services with consultation to pulmonology and cardiothoracic surgery. Valproic acid level was obtained resulting slightly subtherapeutic at 44.1. Covid PCR negative. CRP elevated at 6.40. Patient was started on IV antibiotics with Zosyn and azithromycin. Pro-calcitonin negative at 0.09 and antibiotics discontinued at this time. On the morning of 03/24/23, cardiothoracic surgery drained 350 mL out of right lung from Pleurx catheter. Patient continued with worsening shortness of breath and was on 6 L O2 via nasal cannula with SpO2 of 86%. Patient's condition continued to further deteriorate. 03/25/23 repeat chest x-ray showing right lower lobe consolidation and small effusion stable with persistent prominence of the right hilum unchanged. 03/27/23 chest x-ray a gain repeated again showing stable lower lobe consolidation and pleural effusion unchanged from prior examination. Patient's condition worsening requiring placement on Venturi Mask at 15 L O2 and 50% FiO2. CT chest without contrast on completed showing concerns of moderate sized right pleural effusion with thick wall and pleural catheter in place raising concerns for empyema along with 2 loculated thick-walled collections in the right mid and upper lung also suspicious for possible empyema versus loculated pleural effusions, reticular opacities and consolidation throughout the right lung most prominent within the base consistent with pneumonia, and small left pleural effusion with associated atelectasis and moderate to severe COPD changes. Discussed CT findings with salvationist and called cardiothoracic surgery for drainage. Pleurx catheter drainage to be sent to microbiology for cultures once obtained. Physical exam: Patient continues to be significantly short of breath on Venturi Mask at 15 L O2 and 50% FiO2. Patient reports feeling sleepy today and continues to be significantly short of breath with any movement including just turning over in bed. Vital signs reviewed and stable. General: Nontoxic, no distress and appears stated age. Derm: Skin warm and dry, normal coloration for ethnicity. Head: Atraumatic, normocephalic and symmetric. Eyes: EOMs intact, no lid lag, and anicteric sclera Mouth: no lip lesions, mucus membranes moist Cardiovascular: regular rate and rhythm with normal S1S2, no murmur, positive posterior tibial pulses bilaterally, and cap refill < 2 seconds. Lungs: Respirations increased respiratory effort. Lungs tight with diffuse expiratory wheezes bilaterally and coarse rhonchi right lower and middle lobe. Patient on Venturi Mask at 15 L O2 and 50% FiO2. Abdominal: soft, nontender to palpation, no guarding, no appreciable organomegaly Ext: ROM intact. No gross muscle atrophy, no edema, no contractures Neuro: Speech clear, face symmetrical and CN II-XII grossly intact with no noted focal neuro deficits Psych: Alert and oriented to person, place, time, and situation. Appropriate and pleasant affect. Assessment and Plan of Care: Acute on chronic respiratory failure with hypoxia and hypercarbia Pneumonia of right lung CT findings concerning for possible empyema COPD with acute exacerbation Chronic right pleural effusion with Pleurx catheter History of small cell lung cancer status post chemo and radiation in 2016 currently in remission -Pulmonology following, discussed patient condition and plan of care with salvationist. -Oxygenation to be administered and titrated as needed to maintain SPO2 equal to or greater than 88%. Patient currently on Venturi mask at 15 L O2 and 50% FiO2 -Telemetry monitoring. -Monitor Pulse-oximetry -Continue nebulized albuterol treatments 4 times daily scheduled and Duonebs every 2 hours as needed for SOB and/or wheezing -Continue Pulmicort and formoterol. -Patient to be encouraged to use flutter valve -Steroids: Continue with Decadron 6 mg daily. -Antibiotics: Zosyn and azithromycin discontinued at this time and patient started on vancomycin 1250 mg every 16 hours and cefepime 2 g every 8 hours. -CT chest without contrast on completed showing concerns of moderate sized right pleural effusion with thick wall and pleural catheter in place raising concerns for empyema along with 2 loculated thick-walled collections in the right mid and upper lung also suspicious for possible empyema versus loculated pleural effusions, reticular opacities and consolidation throughout the right lung most prominent within the base consistent with pneumonia, and small left pleural effusion with associated atelectasis and moderate to severe COPD changes. -Discussed CT findings with salvationist and called cardiothoracic surgery for drainage. Pleurx catheter drainage to be sent to microbiology for cultures once obtained. -We will follow up on repeat morning BMP and vancomycin troph to monitor for any signs of vancomycin associated renal toxicity. Hypertension Vital signs reviewed and stable. Patient to continue with atenolol 50 mg daily. Hypothyroidism Patient to continue daily medication regimen with levothyroxine 100 g daily. Hyperlipidemia Patient to continue with daily medication regimen with atorvastatin 20 mg ni ghtly. Moderate protein calorie malnutrition Albumin 3.1, total protein 5.8. Patient to continue with Premier protein supplements 3 times daily between meals. Dietitian following. Data reviewed: Morning labs reviewed. Leukocytosis worsening with WBC count of 29.7. Repeat pro-calcitonin showing slight elevation of 0.11. BMP showing persistent hypercarbia with bicarb of 32. Glucose stable at 106. Liver enzymes normal findings. Vital signs reviewed. Blood pressure 94/51, heart rate 91, respiratory rate 18, temp 97.4F, SpO2 of 91% on Venturi mask at 15 L with 50% FiO2 Imaging reviewed: -CT chest without contrast on completed showing concerns of moderate sized right pleural effusion with thick wall and pleural catheter in place raising concerns for empyema along with 2 loculated thick-walled collections in the right mid and upper lung also suspicious for possible empyema versus loculated pleural effusions, reticular opacities and consolidation throughout the right lung most prominent within the base consistent with pneumonia, and small left pleural ef fusion with associated atelectasis and moderate to severe COPD changes. Patient showing no improvement and worsening respiratory failure. Currently with very poor prognosis. CODE STATUS: DO NOT RESUSCITATE, patient NO to CPR and YES to intubation and mechanical ventilation. DVT prophylaxis: Lovenox Discussed with: Patient, RN, and salvationist Anticipated discharge date: Clinical course to determine Anticipated discharge place: Home Patient was seen independently by Nurse Pracitioner. This document was prepared using [employer] dictation software. Please allow for errors in finisher map and chart, while rare they do occur. Saúl Olson CONTENT ASSISTANT rendered care for this patient independently, reviewed the findings and plan as documented in the note above. I did not physically speak with or examine the patient on this date. Objective - Vital Signs Vital signs: Vital Signs Temp 97.4 F L 03/28/23 01:43 Pulse 88 03/28/23 09:09 Resp 18 03/28/23 01:43 BP 94/51 03/28/23 01:43 Pulse Ox 91 L 03/28/23 09:13 FiO2 50 03/28/23 09:13 Intake & Output 03/27/23 03/28/23 03/28/23 18:59 06:59 18:59 Other: Voiding Method Toilet # Voids 3 # Bowel Movements 2 - Labs CBC & Chem 7: 03/29/23 07:38 03/29/23 07:38 Labs: Abnormal Lab Results - Last 24 Hours (Table) 03/27/23 03/27/23 03/27/23 Range/Units 10:17 10:17 10:17 WBC 23.8 H (3.8-10.6) k/uL Carbon Dioxide 32 H (22-30) mmol/L Glucose 130 H (74-99) mg/dL Calcium 8.0 L (8.4-10.2) mg/dL Total Protein 4.6 L (6.3-8.2) g/dL Albumin 2.3 L (3.5-5.0) g/dL Procalcitonin 0.11 H (0.02-0.09) ng/mL Microbiology - Last 24 Hours (Table) 03/22/23 08:40 Blood Culture - Final Blood 03/26/23 14:35 Gram Stain - Preliminary Sputum
[2023-03-28] MEDS ORDERED: VANCOMYCIN IV PER PHARMACY 1 EACH MISC MISCELLANE PRN (09:56)
[2023-03-28] MEDS: PIPERACILLIN-TAZOBACTAM 3.375 GM in SODIUM CHLORIDE 0.9% 100 ML IVPB SCH ×3 (10:10)
[2023-03-28] MEDS ORDERED: VANCOMYCIN 1,250 MG in SODIUM CHLORIDE 0.9% 250 ML IVPB ONE (10:30)
[2023-03-28] MEDS: ALPRAZolam 0.5 MG TAB PO PRN ×2 (13:11→21:09)
--- NOTE | 2023-03-28 14:20 | P.PN ---
Subjective Progress Note Date: 03/28/23 This is a pleasant 82-year-old female with a past medical history significant for COPD/emphysema, chronic hypoxemic respiratory failure on 3 L/m nasal cannula 24/02, left lung squamous cell carcinoma status post chemoradiation, recurrent right-sided pleural effusions with Pleurx catheter inserted December 2020. She also has history of hypertension, hyperlipidemia, hypothyroidism, atrial fibrillation, and right upper extremity DVT. If she was just discharged on 03/03/2023 following concerns regarding bloody fluid from her Pleurx catheter. She presented here to the emergency room yesterday with complaints of increasing anxiety and some altered mental status according to her . Computed tomography scan of the brain revealed no acute intracranial process. Her Pleurx catheter is drained every third day with about 300 ML's of fluid returned. Chest x-ray reveals similar presentation with background COPD changes and right pleural effusion with patchy consolidation. White count 15.8. Hemoglobin 14.2. Platelets 284. Sodium 142. Potassium 4.3. Bicarb 29. BUN 8. Creatinine 0.8. Glucose 113. C-reactive protein 6.4. Pro-calcitonin 0.09. Coronavirus not detected. She is seen today in consultation on the regular medical floor. She is awake and alert. Somewhat anxious. Maintaining O2 saturations in the 90s on 4 L/m per nasal cannula. Afebrile. Hemodynamically stable. On today's evaluation of 03/24/2023, the patient is still having difficulty breathing. She underwent a drainage of the Pleurx catheter on the right and the patient had a total of 300 mL of pleural fluid evacuated. The patient is still coughing some yellowish sputum. There may be a component of COPD exacerbation. The blood gas was done and the patient was having difficulties in her pulse ox recording. The patient is currently on 6 L and the pulse ox 94%. The blood gas showed a pH of 7.42 with a pCO2 of 51 and pO2 of 59 and this was done on 4 L of oxygen by nasal cannula. The white cell count of 16.2 with a hemoglobin 12.6. The patient is hesitant to take any form of steroids due to his altered mentation depression. The previous cigarette 16.2 with a hemoglobin of 12.6. Pro-calcitonin level is at 0.09. The chest x-ray from yesterday showed stable right-sided pleural effusion and patchy consolidation on the right. On today's evaluation of 03/25/2023, the patient is still struggling with her breathing. She has a cough and congestion and she is unable to bring up much sputum. Noted the rest or secretions are quite thick and tenacious. Sample was sent for cultures and is also still pending for now and the patient remains on IV Rocephin for the time being. She is also on Mucinex DM for cough and congestion. She is on DuoNeb nebulized treatments [id number]. She took a dose of Decadron yesterday, unable to tolerate steroids because of cloudiness in her mentation and some increase restlessness. As such, no steroids are being provided this point in time. The chest x-ray was repeated today and there is opacification of the right lung base. There is a Pleurx catheter in good location. There may be an underlying consolidation/pneumonia. The left lung is essentially clear. His volume is in the right as noted on the chest x-ray. The white cell count from yesterday was at 16.2. She remains on oxygen and she is on 6 L. She has poor respiratory reserve and she gets short of breath with minimal amount of activity. On 03/26/2023, I'm seeing the patient for a follow-up. Limited progress since yesterday. She continues to have significant respiratory distress and insufficiency. She remains on 6 L of oxygen by nasal cannula. She is coughing up thick mucus yellow in color. She will going to be offered a flutter valve. The sputum sample that was sent earlier was negative for any microbial growth. I switched this patient's antibiotic coverage to include a combination of Zosyn and Zithromax. The white cell count is elevated at 21.7. Hemoglobin is 12. BUN is at 12 with a creatinine of 0.6 and a sodium level is at 144. She remains quite short of breath and she has limited respiratory reserve and she gets short of breath with minimal amount of activity. At times, she is also having cloudiness in her mentation. On today's evaluation of 03/27/2023, seeing the patient for a follow-up. The patient is still struggling with her breathing. Earlier this morning, she had increased shortness of breath and the patient was placed on a simple face mask. She is using a flutter valve. She is cough and mucus. A repeat chest x-ray was done and showed a stable consolidation and pleural effusion which is essentially unchanged and most of the abnormalities are in the right lower lobe. We are going to drain the right-sided pleural effusion as the patient has a Pleurx catheter and she receives periodic drainage and we will continue the current a ntibiotic coverage included a combination of Zosyn and Zithromax. The labs from today shows a diminished count 23.8 with a hemoglobin of 11.7. The BUN is at 16 with a creatinine of 0.6 and a sodium level is at 139. The rest of the electrolytes are all within normal limits. We will going to transition her back to nasal cannula. She is requiring approximately 6 L of oxygen nasal cannula. Minimal progress of any and I would say condition is essentially unchanged over the past 24 hours. 03/28/2023, the patient continues to struggle with her breathing patient continues to be short of breath. She is having a congestive cough and she is able to produce copious amount of secretions. Another sputum sample will be sent for Gram stain and culture. She is feeling any chest pain. She is leth argic and she is awake and she is communicating and is currently on 6 L of oxygen by nasal cannula. I did another antibiotic adjustment and I put the patient on accommodation of cefepime and vancomycin. Another drainage of the Pleurx catheter was done with a total of 250 mL of fluid was aspirated. The fluid was sent for culture. Repeat CAT scan of the chest was done yesterday and there was more loculated right lower lobe thick-walled collection on the left and this is a posterior fluid collection and is more significant the left lower lobe and the Pleurx catheter is in good location. At the same time, there is significant consolidation of the right lung. A small amount of left pleural effusion is also seen. There is diffuse emphysema. Upon comparing to the earlier CAT scan of the chest, I would say the pleural fluid is more than the left lung base. Nevertheless, there is worsening the consolidation of the right lower lobe. As such, I'm highly concerned that the patient may have an underlying right lung infection. This is consistent with pneumonia. The possibility of pleural fluid being infected/empyema cannot be completely excluded. The echoes on the rise and currently is up to 29 with a hemoglobin of 12.2. BUN is at 16 with a creatinine of 0.7. Sodium level is at 139. The potassium levels at 4.6. Objective - Vital Signs Vital signs: Vital Signs Temp 97.4 F L 03/28/23 01:43 Pulse 76 03/28/23 12:12 Resp 18 03/28/23 01:43 BP 94/51 03/28/23 01:43 Pulse Ox 91 L 03/28/23 09:13 FiO2 50 03/28/23 09:13 Intake & Output 03/27/23 03/28/23 03/28/23 18:59 06:59 18:59 Weight 66.678 kg Other: Voiding Method Toilet # Voids 3 # Bowel Movements 2 - Exam GENERAL EXAM: Alert, anxious 82-year-old female on 6 L nasal cannula, fairly comfortable in no apparent distress. HEAD: Normocephalic. EYES: Normal reaction of pupils, equal size. NOSE: Clear with pink turbinates. THROAT: No erythema or exudates. NECK: No masses, no JVD. CHEST: No chest wall deformity. Pleurx catheter remains in place to the right chest. LUNGS: Equal air entry with crackles in the right lung base. CVS: S1 and S2 normal with no audible murmur, regular rhythm. ABDOMEN: No hepatosplenomegaly, normal bowel sounds, no guarding or rigidity. SPINE: No scoliosis or deformity SKIN: No rashes CENTRAL NERVOUS SYSTEM: No focal deficits, tone is normal in all 4 extremities. EXTREMITIES: There is no peripheral edema. No clubbing, no cyanosis. Peripheral pulses are intact. - Labs CBC & Chem 7: 03/28/23 08:06 03/28/23 08:06 Labs: Abnormal Lab Results - Last 24 Hours (Table) 03/27/23 03/28/23 03/28/23 Range/Units 10:17 08:06 08:06 WBC 29.7 H (3.8-10.6) k/uL MCHC 30.7 L (31.0-37.0) g/dL Carbon Dioxide 32 H (22-30) mmol/L Glucose 106 H (74-99) mg/dL Calcium 8.0 L (8.4-10.2) mg/dL Total Protein 5.1 L (6.3-8.2) g/dL Albumin 2.6 L (3.5-5.0) g/dL Procalcitonin 0.11 H (0.02-0.09) ng/mL Microbiology - Last 24 Hours (Table) 03/22/23 20:45 Blood Culture - Final Blood 03/26/23 14:35 Gram Stain - Final Sputum Sputum Culture - Final Dilia albicans 03/22/23 08:40 Blood Culture - Final Blood Assessment and Plan Plan: Acute on chronic hypoxemic respiratory failure due to chronic changes in the right chest, unchanged. Pleurx catheter remains in place. The patient is currently on 6 L of oxygen by nasal cannula. No interval worsening in oxygenation. There is evidence of a right lung pneumonia with significant consolidation of the right lung base. At the same time, there is located right- sided pleural effusion and a large collection in the right lung base. Pleurx catheter remains in a good location. The possibility of a empyema cannot be completely excluded. Noted the previous pleural fluid cultures were polymicrobial and the repeat cultures were sent. Meanwhile, the patient is On accommodation of cefepime and vancomycin.. The patient continues to cough up copious amounts of rest or secretions. Ideally, bronchoscopy may be of value yet the patient was not stable enough. If no progress in her condition, I'm contemplating doing a bronchoscopy within next 24-48 hours for therapeutic airway suctioning. Leukocytosis secondary to above Loculated right-sided pleural effusion, as discussed above. The patient is also developed a small left-sided pleural effusion. Anxiety secondary to above Shortness of breath, multifactorial. The patient has COPD and history of small cell lung cancer with a recurrent right-sided pleural effusion. Superinfection cannot be completely ruled out. Pro-calcitonin level is nonelevated. 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 PET scan performed in February 2023 showed no suspicious uptake suggesting metasta tic disease. There was a small to moderate loculated right pleural fluid collection. The patient has had a chronic right-sided pleural effusion and she has undergone episodic drainage for a Pleurx catheter on the right lung. Repeated pleural fluid cytology has been negative for malignancy. There is a concern for a pleural space infection. Previous pleural fluid has shown polymicrobial growth which I think is contaminant. There may be value to repeat a pleural fluid culture. History of COPD Benign essential hypertension Hyperlipidemia Hypothyroidism Remote history of right upper extremity DVT, not anticoagulated Plan: Awaiting the repeat pleural fluid cultures Awaiting sputum Gram stain and culture, repeat sample was sent today Antibiotics has been switched a combination of cefepime and vancomycin Drainage of the Pleurx catheter was done and a total of 250 mL of fluid was as pirated Limited progress since yesterday Continues to have respiratory insufficiency Aggressive pulmonary toileting Possible bronchoscopy within next 24-48 hours depending on her condition. I tentatively scheduled her for a bronchoscopy in a.m. This will be done if her condition remains unchanged. We will continue to follow and make further recommendations based on her clinical status Long-term prognosis poor. She is a DNR/DNI CODE STATUS. Not ready for hospice yet. Long-term prognosis poor based on the above and I had a lengthy discussion with her and her the bedside.
--- NOTE | 2023-03-28 16:21 | P.PN ---
Subjective Progress Note Date: 03/26/23 Principal diagnosis: Pneumonia Patient is a 82-year-old female with a past medical history significant for hypertension hyperlipidemia osteoarthritis DVT COPD small cell lung cancer did have history of right-sided effusion status post thoracocentesis and Pleurx catheter placement presenting the hospital with increasing shortness of breath and concern for possible pneumonia. On today's evaluation that is 03/26/2023 patient remains to be afebrile, the patient has been complaining mostly shortness of breath , the patient denies any chest pain she did have a cough with occasional sputum production no nausea no vomiting no abdominal pain or diarrhea. Patient white count is white count is up to 21.72, creatinine 0.6, blood culture and sputum cultures so far negative Objective - Vital Signs Vital signs: Vital Signs Temp 98.5 F 03/26/23 07:26 Pulse 87 03/26/23 14:46 Resp 18 03/26/23 07:26 BP 134/76 03/26/23 07:26 Pulse Ox 93 L 03/26/23 07:32 FiO2 Intake & Output 03/25/23 03/26/23 03/26/23 18:59 06:59 18:59 Other: # Voids 3 - Exam GENERAL DESCRIPTION: Elderly female lying in bed in no distress RESPIRATORY SYSTEM: Unlabored breathing , decreased breath sounds at bases HEART: S1 S2 regular rate and rhythm ,no loud murmurs ABDOMEN: Soft , no tenderness EXTREMITIES: No edema feet - Labs CBC & Chem 7: 03/28/23 08:06 03/28/23 08:06 Labs: Abnormal Lab Results - Last 24 Hours (Table) 03/26/23 03/26/23 Range/Units 05:56 05:56 WBC 21.72 H (4.50-10.00) X 10*3/uL RBC 4.04 L (4.10-5.20) X 10*6/uL MCV 98.8 H (80.0-97.0) FL MCHC 30.1 L (32.0-37.0) d/dL Carbon Dioxide 32.7 H (21.6-31.8) mmol/L BUN/Creatinine Ratio 21.50 H (12.00-20.00) Ratio Calcium 8.3 L (8.7-10.3) mg/dL Total Bilirubin <0.2 L (0.3-1.2) mg/dL AST 11 L (13-35) U/L Total Protein 4.5 L (6.2-8.2) d/dL Albumin 2.7 L (3.8-4.9) d/dL Albumin/Globulin Ratio 1.50 L (1.60-3.17) Ratio Microbiology - Last 24 Hours (Table) 03/22/23 20:45 Blood Culture - Preliminary Blood 03/24/23 11:39 Gram Stain - Final Sputum Sputum Culture - Final 03/22/23 17:50 Gram Stain - Final Sputum Sputum Culture - Final 03/22/23 08:40 Blood Culture - Preliminary Blood Assessment and Plan (1) Pneumonia Current Visit: Yes Status: Acute Priority: High Code(s): J18.9 - PNEUMONIA, UNSPECIFIED ORGANISM SNOMED Code(s): 440105351 Plan: 1patient presented to hospital with shortness of breath did have a cough productive sputum in addition to the anxiety and some mental status changes chest x-ray with right-sided effusion and consolidation concerning for pneumonia possible gram-negative as the patient has been in and out of hospital recently. 2blood and sputum cultures are so far negative 3patient's currently covered with empiric Rocephin and will monitor clinical closely Dictation was produced using [employer] dictation software. please excuse any grammatical, word or spelling errors. Time with Patient: Less than 30
--- NOTE | 2023-03-28 16:23 | P.PN ---
Subjective Progress Note Date: 03/27/23 Principal diagnosis: Pneumonia Patient is a 82-year-old female with a past medical history significant for hypertension hyperlipidemia osteoarthritis DVT COPD small cell lung cancer did have history of right-sided effusion status post thoracocentesis and Pleurx catheter placement presenting the hospital with increasing shortness of breath and concern for possible pneumonia. On today's evaluation that is 03/27/2023 patient continues remains to be afebrile, the patient mentioned breathing slightly comfortably today, the patient denies any chest pain she did have a cough with occasional sputum production no nausea no vomiting no abdominal pain or diarrhea. Patient white count is white count is up to 23.8, creatinine 0.63, blood culture and sputum cultures so far negative Objective - Vital Signs Vital signs: Vital Signs Temp 97.3 F L 03/27/23 07:00 Pulse 100 03/27/23 12:19 Resp 17 03/27/23 07:00 BP 102/63 03/27/23 07:00 Pulse Ox 98 03/27/23 07:00 FiO2 50 03/27/23 08:50 Intake & Output 03/26/23 03/27/23 03/27/23 18:59 06:59 18:59 Other: Voiding Method Toilet # Voids 2 2 - Exam GENERAL DESCRIPTION: Elderly female lying in bed in no distress RESPIRATORY SYSTEM: Unlabored breathing , decreased breath sounds at bases HEART: S1 S2 regular rate and rhythm ,no loud murmurs ABDOMEN: Soft , no tenderness EXTREMITIES: No edema feet - Labs CBC & Chem 7: 03/28/23 08:06 03/28/23 08:06 Labs: Abnormal Lab Results - Last 24 Hours (Table) 03/27/23 03/27/23 Range/Units 10:17 10:17 WBC 23.8 H (3.8-10.6) k/uL Carbon Dioxide 32 H (22-30) mmol/L Glucose 130 H (74-99) mg/dL Calcium 8.0 L (8.4-10.2) mg/dL Total Protein 4.6 L (6.3-8.2) g/dL Albumin 2.3 L (3.5-5.0) g/dL Microbiology - Last 24 Hours (Table) 03/26/23 14:35 Gram Stain - Preliminary Sputum 03/22/23 20:45 Blood Culture - Preliminary Blood 03/24/23 11:39 Gram Stain - Final Sputum Sputum Culture - Final 03/22/23 17:50 Gram Stain - Final Sputum Sputum Culture - Final Assessment and Plan (1) Pneumonia Current Visit: Yes Status: Acute Priority: High Code(s): J18.9 - PNEUMONIA, UNSPECIFIED ORGANISM SNOMED Code(s): 865522588 Plan: 1patient presented to hospital with shortness of breath did have a cough productive sputum in addition to the anxiety and some mental status changes chest x-ray with right-sided effusion and consolidation concerning for pneumonia possible gram-negative as the patient has been in and out of hospital recently. 2blood and sputum cultures are so far negative 3[place] is more likely steroid related to her and will monitor closely may benefit from a repeat CT and aspiration of the pleural fluid Dictation was produced using [employer] dictation software. please excuse any grammatical, word or spelling errors. Time with Patient: Less than 30
--- NOTE | 2023-03-28 16:26 | P.PN ---
Subjective Progress Note Date: 03/28/23 Principal diagnosis: Pneumonia Patient is a 82-year-old female with a past medical history significant for hypertension hyperlipidemia osteoarthritis DVT COPD small cell lung cancer did have history of right-sided effusion status post thoracocentesis and Pleurx catheter placement presenting the hospital with increasing shortness of breath and concern for possible pneumonia. On today's evaluation that is 03/28/2023 patient denies any fever or chills, the patient has been complaining of more shortness of breath today, the patient denies any chest pain the patient did have a cough with occasional sputum production no nausea no vomiting no abdominal pain or diarrhea. Patient is status post aspirate of the right pleural fluid drainage by CT surgery Patient white count is white count is up to 29.7, creatinine 0.70, pleural fluid cultures currently pending Objective - Vital Signs Vital signs: Vital Signs Temp 97.4 F L 03/28/23 01:43 Pulse 76 03/28/23 12:12 Resp 18 03/28/23 01:43 BP 94/51 03/28/23 01:43 Pulse Ox 91 L 03/28/23 09:13 FiO2 50 03/28/23 09:13 Intake & Output 03/27/23 03/28/23 03/28/23 18:59 06:59 18:59 Weight 66.678 kg Other: Voiding Method Toilet # Voids 3 # Bowel Movements 2 - Exam GENERAL DESCRIPTION: Elderly female lying in bed in no distress RESPIRATORY SYSTEM: Unlabored breathing , decreased breath sounds at bases HEART: S1 S2 regular rate and rhythm ,no loud murmurs ABDOMEN: Soft , no tenderness EXTREMITIES: No edema feet - Labs CBC & Chem 7: 03/28/23 08:06 03/28/23 08:06 Labs: Abnormal Lab Results - Last 24 Hours (Table) 03/27/23 03/28/23 03/28/23 Range/Units 10:17 08:06 08:06 WBC 29.7 H (3.8-10.6) k/uL MCHC 30.7 L (31.0-37.0) g/dL Carbon Dioxide 32 H (22-30) mmol/L Glucose 106 H (74-99) mg/dL Calcium 8.0 L (8.4-10.2) mg/dL Total Protein 5.1 L (6.3-8.2) g/dL Albumin 2.6 L (3.5-5.0) g/dL Procalcitonin 0.11 H (0.02-0.09) ng/mL Microbiology - Last 24 Hours (Table) 03/22/23 20:45 Blood Culture - Final Blood 03/26/23 14:35 Gram Stain - Final Sputum Sputum Culture - Final Dilia albicans 03/22/23 08:40 Blood Culture - Final Blood Assessment and Plan (1) Pneumonia Current Visit: Yes Status: Acute Priority: High Code(s): J18.9 - PNEUMO FLACA, UNSPECIFIED ORGANISM SNOMED Code(s): 777946344 Plan: 1patient presented to hospital with shortness of breath did have a cough productive sputum in addition to the anxiety and some mental status changes chest x-ray with right-sided effusion and consolidation concerning for pneumonia possible gram-negative as the patient has been in and out of hospital recently. 2blood and sputum cultures are so far negative 3patient did have a CT of the chest last and it shows moderate size right pleural effusion with thick wall and pleural catheter in place a consult for possible empyema patient is status post drainage of the fluid had been sent for culture antibiotics had been switched to vancomycin and cefepime, culture will be followed antibiotics to be adjusted if needed Dictation was produced using [employer] dictation software. please excuse any grammatical, word or spelling errors.
[2023-03-28] MEDS: CEFEPIME 2 GM in SODIUM CHLORIDE 0.9% 100 ML IVPB SCH ×2 (17:02→23:16)
[2023-03-28] MEDS: SODIUM CHLORIDE 0.9% 1,000 ML IV SCH (17:29)
[2023-03-28] MEDS: MIRTAZAPINE 15 MG TAB PO SCH (21:09)
[2023-03-28] MEDS: ATORVASTATIN 20 MG TAB PO SCH (21:09)
[2023-03-28] MEDS: MELATONIN 3 MG TABLET PO PRN (21:09)
[2023-03-28] MEDS: ASPIRIN 81 MG PO SCH (21:09)
[2023-03-28] MEDS ORDERED: VANCOMYCIN 1,250 MG in SODIUM CHLORIDE 0.9% 250 ML IVPB SCH (22:00)
[2023-03-29] MEDS: ALPRAZolam 0.5 MG TAB PO PRN ×2 (05:04→20:31)
[2023-03-29 08:29] LABS: HCT 37.5 % (34.0-46.0); HGB 11.6 gm/dL (11.4-16.0); Hypochromasia Marked; MCH 29.9 pg (25.0-35.0); MCV 96.6 fL (80.0-100.0); Mean Platelet Volume 7.8; Platelet Count 229 k/uL (150-450); RBC 3.88 m/uL (3.80-5.40); RDW 13.7 % (11.5-15.5); WBC 29.2 k/uL (3.8-10.6)
[2023-03-29] MEDS: CEFEPIME 2 GM in SODIUM CHLORIDE 0.9% 100 ML IVPB SCH ×3 (08:31→23:33)
--- NOTE | 2023-03-29 08:43 | P.PN ---
Subjective Progress Note Date: 03/29/23 This is a pleasant 82-year-old female with a past medical history significant for COPD/emphysema, chronic hypoxemic respiratory failure on 3 L/m nasal cannula 24/02, left lung squamous cell carcinoma status post chemoradiation, recurrent right-sided pleural effusions with Pleurx catheter inserted December 2020. She also has history of hypertension, hyperlipidemia, hypothyroidism, atrial fibrillation, and right upper extremity DVT. If she was just discharged on 03/03/2023 following concerns regarding bloody fluid from her Pleurx catheter. She presented here to the emergency room yesterday with complaints of increasing anxiety and some altered mental status according to her . Computed tomography scan of the brain revealed no acute intracranial process. Her Pleurx catheter is drained every third day with about 300 ML's of fluid returned. Chest x-ray reveals similar presentation with background COPD changes and right pleural effusion with patchy consolidation. White count 15.8. Hemoglobin 14.2. Platelets 284. Sodium 142. Potassium 4.3. Bicarb 29. BUN 8. Creatinine 0.8. Glucose 113. C-reactive protein 6.4. Pro-calcitonin 0.09. Coronavirus not detected. She is seen today in consultation on the regular medical floor. She is awake and alert. Somewhat anxious. Maintaining O2 saturations in the 90s on 4 L/m per nasal cannula. Afebrile. Hemodynamically stable. On today's evaluation of 03/24/2023, the patient is still having difficulty breathing. She underwent a drainage of the Pleurx catheter on the right and the patient had a total of 300 mL of pleural fluid evacuated. The patient is still coughing some yellowish sputum. There may be a component of COPD exacerbation. The blood gas was done and the patient was having difficulties in her pulse ox recording. The patient is currently on 6 L and the pulse ox 94%. The blood gas showed a pH of 7.42 with a pCO2 of 51 and pO2 of 59 and this was done on 4 L of oxygen by nasal cannula. The white cell count of 16.2 with a hemoglobin 12.6. The patient is hesitant to take any form of steroids due to his altered mentation depression. The previous cigarette 16.2 with a hemoglobin of 12.6. Pro-calcitonin level is at 0.09. The chest x-ray from yesterday showed stable right-sided pleural effusion and patchy consolidation on the right. On today's evaluation of 03/25/2023, the patient is still struggling with her breathing. She has a cough and congestion and she is unable to bring up much sputum. Noted the rest or secretions are quite thick and tenacious. Sample was sent for cultures and is also still pending for now and the patient remains on IV Rocephin for the time being. She is also on Mucinex DM for cough and congestion. She is on DuoNeb nebulized treatments [id number]. She took a dose of Decadron yesterday, unable to tolerate steroids because of cloudiness in her mentation and some increase restlessness. As such, no steroids are being provided this point in time. The chest x-ray was repeated today and there is opacification of the right lung base. There is a Pleurx catheter in good location. There may be an underlying consolidation/pneumonia. The left lung is essentially clear. His volume is in the right as noted on the chest x-ray. The white cell count from yesterday was at 16.2. She remains on oxygen and she is on 6 L. She has poor respiratory reserve and she gets short of breath with minimal amount of activity. On 03/26/2023, I'm seeing the patient for a follow-up. Limited progress since yesterday. She continues to have significant respiratory distress and insufficiency. She remains on 6 L of oxygen by nasal cannula. She is coughing up thick mucus yellow in color. She will going to be offered a flutter valve. The sputum sample that was sent earlier was negative for any microbial growth. I switched this patient's antibiotic coverage to include a combination of Zosyn and Zithromax. The white cell count is elevated at 21.7. Hemoglobin is 12. BUN is at 12 with a creatinine of 0.6 and a sodium level is at 144. She remains quite short of breath and she has limited respiratory reserve and she gets short of breath with minimal amount of activity. At times, she is also having cloudiness in her mentation. On today's evaluation of 03/27/2023, seeing the patient for a follow-up. The patient is still struggling with her breathing. Earlier this morning, she had increased shortness of breath and the patient was placed on a simple face mask. She is using a flutter valve. She is cough and mucus. A repeat chest x-ray was done and showed a stable consolidation and pleural effusion which is essentially unchanged and most of the abnormalities are in the right lower lobe. We are going to drain the right-sided pleural effusion as the patient has a Pleurx catheter and she receives periodic drainage and we will continue the current a ntibiotic coverage included a combination of Zosyn and Zithromax. The labs from today shows a diminished count 23.8 with a hemoglobin of 11.7. The BUN is at 16 with a creatinine of 0.6 and a sodium level is at 139. The rest of the electrolytes are all within normal limits. We will going to transition her back to nasal cannula. She is requiring approximately 6 L of oxygen nasal cannula. Minimal progress of any and I would say condition is essentially unchanged over the past 24 hours. 03/28/2023, the patient continues to struggle with her breathing patient continues to be short of breath. She is having a congestive cough and she is able to produce copious amount of secretions. Another sputum sample will be sent for Gram stain and culture. She is feeling any chest pain. She is leth argic and she is awake and she is communicating and is currently on 6 L of oxygen by nasal cannula. I did another antibiotic adjustment and I put the patient on accommodation of cefepime and vancomycin. Another drainage of the Pleurx catheter was done with a total of 250 mL of fluid was aspirated. The fluid was sent for culture. Repeat CAT scan of the chest was done yesterday and there was more loculated right lower lobe thick-walled collection on the left and this is a posterior fluid collection and is more significant the left lower lobe and the Pleurx catheter is in good location. At the same time, there is significant consolidation of the right lung. A small amount of left pleural effusion is also seen. There is diffuse emphysema. Upon comparing to the earlier CAT scan of the chest, I would say the pleural fluid is more than the left lung base. Nevertheless, there is worsening the consolidation of the right lower lobe. As such, I'm highly concerned that the patient may have an underlying right lung infection. This is consistent with pneumonia. The possibility of pleural fluid being infected/empyema cannot be completely excluded. The echoes on the rise and currently is up to 29 with a hemoglobin of 12.2. BUN is at 16 with a creatinine of 0.7. Sodium level is at 139. The potassium levels at 4.6. 03/29/2023, the patient continues to be short of breath and she is currently on a 50% Ventimask. Pulse ox is ranging between 89-90%. She is having difficulti es with her speech. She continues to have a cough and congestion. A repeat sputum sample was positive for Dilia. She is afebrile. Current antibiotic coverage is vancomycin and cefepime. The pleural fluid was drained yesterday and amount of fluid was aspirated was minimal. I had a lengthy discussion with the patient and her . I offered bronchoscopy while the patient being intubated on a mechanical ventilator. Despite her no CODE STATUS, she consented for the procedure as the patient kept on saying that something has to be done to give it a chance to improve. Unfortunately, her course has been quite complicated and the patient has not shown any significant recovery over the past 1 week while being in antibiotic coverage. She continues to struggle with her breathing and she continues to be short of breath. Labs from today are still pending. I'm going to do a quick CBC and complete metabolic profile and the plan is to take this patient to endoscopy suite, intubated bronchoscope and collect samples from her lungs and perform therapeutic airway suctioning. Subsequently, she is going to go to the intensive care unit and she'll be kept on a mechanical ventilator for now. Objective - Vital Signs Vital signs: Vital Signs Temp 98.5 F 03/28/23 20:10 Pulse 86 03/29/23 07:05 Resp 16 03/29/23 07:05 BP 139/78 03/29/23 07:05 Pulse Ox 91 L 03/29/23 07:05 FiO2 40 03/28/23 20:49 Intake & Output 03/28/23 03/29/23 03/29/23 18:59 06:59 18:59 Output Total 250 Balance -250 Weight 66.678 kg Output: Chest Tube Drainage 250 Pleural Catheter Right 250 Lower Anterior Chest Other: Voiding Method Toilet Toilet # Voids 5 3 - Exam GENERAL EXAM: Alert, anxious 82-year-old female on 50% Ventimask with a pulse ox of 89-90% HEAD: Normocephalic. EYES: Normal reaction of pupils, equal size. NOSE: Clear with pink turbinates. THROAT: No erythema or exudates. NECK: No masses, no JVD. CHEST: No chest wall deformity. Pleurx catheter remains in place to the right chest. The breath sounds are diminished in the right lung base and the patient has crackles. She is tachypneic LUNGS: Equal air entry with crackles in the right lung base. CVS: S1 and S2 normal with no audible murmur, regular rhythm. ABDOMEN: No hepatosplenomegaly, normal bowel sounds, no guarding or rigidity. SPINE: No scoliosis or deformity SKIN: No rashes CENTRAL NERVOUS SYSTEM: No focal deficits, tone is normal in all 4 extremities. EXTREMITIES: There is no peripheral edema. No clubbing, no cyanosis. Peripheral pulses are intact. - Labs CBC & Chem 7: 03/29/23 07:38 03/28/23 08:06 Labs: Abnormal Lab Results - Last 24 Hours (Table) 03/28/23 03/28/23 03/29/23 Range/Units 08:06 08:06 07:38 WBC 29.7 H 29.2 H (3.8-10.6) k/uL MCHC 30.7 L (31.0-37.0) g/dL Carbon Dioxide 32 H (22-30) mmol/L Glucose 106 H (74-99) mg/dL Calcium 8.0 L (8.4-10.2) mg/dL Total Protein 5.1 L (6.3-8.2) g/dL Albumin 2.6 L (3.5-5.0) g/dL Microbiology - Last 24 Hours (Table) 03/22/23 20:45 Blood Culture - Final Blood 03/26/23 14:35 Gram Stain - Final Sputum Sputum Culture - Final Dilia albicans Assessment and Plan Plan: Acute on chronic hypoxemic respiratory failure due to chronic changes in the right chest, unchanged. Pleurx catheter remains in place. The patient is currently on 6 L of oxygen by nasal cannula. No interval worsening in oxygenation. There is evidence of a right lung pneumonia with significant cons olidation of the right lung base. At the same time, there is located right- sided pleural effusion and a large collection in the right lung base. Pleurx catheter remains in a good location. The possibility of a empyema cannot be completely excluded. Noted the previous pleural fluid cultures were polymicrobial and the repeat cultures were sent. Meanwhile, the patient is On accommodation of cefepime and vancomycin.. The patient continues to cough up copious amounts of rest or secretions. Ideally, bronchoscopy may be of value yet the patient was not stable enough. We decided to proceed with intubation and subsequent bronchoscopy and further investigation of ongoing problems and her right lung. The pleural fluid cultures are still pending. Patient is currently on a combination of cefepime and vancomycin. Sputum cultures still showing Dilia. The patient is currently on a 50% Ventimask. She is nothing by mouth. Leukocytosis secondary to above Loculated right-sided pleural effusion, as discussed above. The patient is also developed a small left-sided pleural effusion. The Pleurx catheter is being utilized to evacuate her right-sided pleural effusion periodically. Anxiety secondary to above Shortness of breath, multifactorial. The patient has COPD and history of small cell lung cancer with a recurrent right-sided pleural effusion. Superinfection cannot be completely ruled out. Pro-calcitonin level is nonelevated. 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 PET scan performed in February 2023 showed no suspicious uptake suggesting metastatic disease. There was a small to moderate loculated right pleural fluid collection. The patient has had a chronic right-sided pleural effusion and she has undergone episodic drainage for a Pleurx catheter on the right lung. Repeated pleural fluid cytology has been negative for malignancy. There is a concern for a pleural space infection. Previous pleural fluid has shown polymicrobial growth which I think is contaminant. There may be value to repeat a pleural fluid culture. History of COPD Benign essential hypertension Hyperlipidemia Hypothyroidism Remote history of right upper extremity DVT, not anticoagulated Plan: Will proceed with intubation mechanical ventilation. Her CODE STATUS has been modified and the patient is consented for intubation mechanical ventilation for now We'll proceed with bronchoscopy postintubation Awaiting the repeat pleural fluid cultures Sputum sample that shown Dilia albicans Antibiotics has been switched a combination of cefepime and vancomycin, with added vancomycin Drainage of the Pleurx catheter was done yesterday and a total of 250 mL of fluid was aspirated and once in the intensive care unit, the patient's Pleurx catheter will be attached to continuous suction Limited progress Continues to have respiratory insufficiency Long-term prognosis poor. She is a DNR/DNI CODE STATUS.. Long-term prognosis poor based on the above and I had a lengthy discussion with her and her the bedside. The patient and her consented for the above.
[2023-03-29 08:50] LABS: ALT 16 U/L (4-34); AST 19 U/L (14-36); African American GFR (CKD) >90 (>60 ml/min/1.73 sqM); Albumin 2.3 g/dL (3.5-5.0); Alkaline Phosphatase 85 U/L (38-126); Anion Gap 3 mmol/L; Blood Urea Nitrogen 20 mg/dL (7-17); Calcium 7.9 mg/dL (8.4-10.2); Carbon Dioxide 31 mmol/L (22-30); Chloride 107 mmol/L (98-107); Globulin 2.2 g/dL; Glucose 104 mg/dL (74-99); Magnesium 2.2 mg/dL (1.6-2.3); Non-African American GFR(CKD) 88 (>60 ml/min/1.73 sqM); Potassium 4.9 mmol/L (3.5-5.1); Sodium 141 mmol/L (137-145); Total Bilirubin 0.3 mg/dL (0.2-1.3); Total Protein 4.5 g/dL (6.3-8.2)
[2023-03-29 09:01] LABS: Glucose,Whole Blood 99 mg/dL (70-110)
[2023-03-29] MEDS: BUDESONIDE 1 MG/2 ML NEBU INHALATION SCH ×2 (09:04→20:02)
[2023-03-29] MEDS: FORMOTEROL FUMARATE 20 MCG/2 ML NEBU INHALATION SCH ×2 (09:04→20:02)
[2023-03-29] MEDS: ALBUTEROL NEBULIZED 2.5 MG/3 ML INHALATION SCH ×2 (09:04→11:45)
[2023-03-29] MEDS: NOREPINEPHRINE 8 MG in SODIUM CHLORIDE 0.9% 250 ML IV SCH (09:46)
[2023-03-29] MEDS ORDERED: CISATRACURIUM 2 MG/ML 5 ML VIAL IV ONE (09:55)
[2023-03-29] MEDS ORDERED: FLUCONAZOLE IN NACL,ISO-OSM 100 MG in SALINE 1 50ML.BAG IVPB SCH (10:00)
--- NOTE | 2023-03-29 10:18 | P.PCN ---
Date of Procedure: 03/29/23 Preoperative Diagnosis: Pneumonia, respiratory failure Postoperative Diagnosis: Pneumonia, respiratory failure Procedure(s) Performed: Intubation, central line, arterial line, bronchoscopy, bronchial lavage of the right lower lobe Anesthesia: MAC Surgeon: Chris Lucio Estimated Blood Loss (ml): 0 Pathology: other Condition: critical Disposition: ICU Operative Findings: Intubation Indication: Respiratory compromise. A time-out was completed verifying correct patient, procedure, site, positioning, and implant(s) or special equipment if applicable. The patient was positioned appropriately and a #8 endotracheal tube was placed under direct laryngoscopy. The tube was anchored at 22 cm at the teeth. Correct placement was confirmed by presence of bilateral breath sounds without air sounds in the abdomen on auscultation. An end-tidal CO2 monitor was also used to confirm tracheal placement of the ET tube. A chest x-ray was ordered to assess for pneumothorax and verify endotracheal tube placement. The patient tolerated the procedure well and there were no complications. Arterial line A time-out was completed verifying correct patient, procedure, site, positioning, and implant(s) or special equipment if applicable. Allens test was performed to ensure adequate perfusion. The patients [was prepped and draped in sterile fashion. 1% Lidocaine was used to anesthetize the area. An 18G Arrow arterial line was introduced into the right radial artery. The catheter was threaded over the guide wire and the needle was removed with appropriate pulsatile blood return. Blood loss was minimal. The catheter was then sutured in place to the skin and a sterile dressing applied. Perfusion to the extremity distal to the point of catheter insertion was checked and found to be adequate. The patient tolerated the procedure well and there were no complications. Central line Indication: Hemodynamic monitoring/Intravenous access. A time-out was completed verifying correct patient, procedure, site, positioning, and implant(s) or special equipment if applicable. The patient was placed in a dependent position appropriate for central line placement based on the vein to be cannulated. The patients right groin was prepped and draped in sterile fashion. 1% Lidocaine was used to anesthetize the surrounding skin area. A triple lumen 9F Cordis catheter was introduced into the right femoral vein using Seldinger technique. The catheter was threaded smoothly over the guide wire and appropriate blood return was obtained. Each lumen of the catheter was evacuated of air and flushed with sterile saline. The catheter was then sutured in place to the skin and a sterile dressing applied. Perfusion to the extremity distal to the point of catheter insertion was checked and found to be adequate. The patient tolerated the procedure well and there were no complications. Bronchoscopy and bronchial lavage of the right lower lobe Preoperative Diagnosis: Right lung pneumonia Postoperative Diagnosis: Right lung pneumonia with a mucous plug Procedure(s) Performed: Bronchoscopy and therapeutic airway suctioning and removal of mucous plug, bronchioloalveolar lavage of the right lower lobe Anesthesia: MAC Surgeon: Chris Lucio Estimated Blood Loss (ml): 0 Pathology: none sent Condition: critical Disposition: ICU Operative Findings: This procedure was undertaken intensive care unit. The patient was over the intubated on a mechanical ventilator. The patient was also sedated with propofol. The chest x-ray showed volume loss and pneumonia of the right lung. Based on that, a flexible bronchoscopy was done at the bedside. Regular adapter was attached to the orotracheal tube and the flexible bronchoscope was introduced into the lower trachea. The procedure was done as the patient was adequately ventilated and oxygenated. The distal trachea was within normal limits and the tip of the orotracheal tube was seen around 3 cm above the jordan. There was copious amount of mucous plugs occupying the right mainstem bronchus. As such, therapeutic airway suctioning was done. Around 30 mL of copious respiratory secretions were aspirated from the right lung. At the completion of the procedure, the right mainstem bronchus was patent. The right upper lobe and the various segments, bronchus intermedius, right middle lobe and the right lower lobe and the various segments on the right were all patent. Examination of the left side was within normal limits. The flexible bronchoscope was removed and the subsequent chest x-ray showed partial reexpansion of the right lung. No complications. Following that, a bronchial lavage of the right lower lobe was done. A total of 60 mL of fluid was infused another 30 mL of aspirate was obtained from the right lower lobe. No complications. Bronchoscope was removed. The procedure was terminated. Chest x-rays to follow. The samples from the right lower lobe will be sent for microbial cultures and analysis.
[2023-03-29] MEDS: ARIPiprazole 2 MG TAB PO SCH (10:51)
[2023-03-29] MEDS: guaiFENesin-DM 600/30MG 1 EACH TAB.ER.12H PO SCH ×2 (10:52→20:51)
[2023-03-29] MEDS: SERTRALINE 50 MG TAB PO SCH (10:52)
[2023-03-29] MEDS: atenoloL 50 MG TAB PO SCH (10:52)
[2023-03-29] MEDS: LEVOTHYROXINE 100 MCG TAB PO SCH (10:52)
[2023-03-29] MEDS: DIVALPROEX 250 MG TABLET.DR PO SCH ×2 (10:52→20:38)
[2023-03-29 11:00] LABS: ABG Base Excess 6.6 mmol/L; ABG HCO3 31 mmol/L (21-25); ABG Oxygen Saturation 98.5 % (94-97); ABG PCO2 50 mmHg (35-45); ABG PO2 128 mmHg (83-108); ABG TCO2 33 mmol/L (19-24); Allen Test Performed? Yes
--- NOTE | 2023-03-29 11:38 | XR ---
EXAMINATION TYPE: XR chest 1V portable DATE OF EXAM: 03/29/2023 Comparison: 10/25/2022 Clinical History: 82 year-old female tube placement Findings: ET tube tip 1.5 cm from the jordan. This could be pulled back 1.5 cm and reassessed on follow-up. NG tube tip below the diaphragm. However, the tube could be advanced by 6 cm so that the sidehole in the stomach. Right basilar pleural drain. Pleural-parenchymal opacity and volume loss throughout the right hemithorax and extensive opacificati on. Some aeration within the right upper and midlung. Hyperinflation and interstitial prominence thro ughout the left lung. Impression: 1. COPD with ongoing extensive pleural-parenchymal opacities in the right hemithorax sparing the righ t upper lobe. Right basilar pleural drain. 2. Background COPD. Some patchy opacity at the left base appears to be decreasing. 3. ET tube can be pulled back 1.5 cm. NG tube can be advanced by 6 cm.
[2023-03-29] MEDS: IPRATROPIUM-ALBUTEROL 3 ML NEB INHALATION SCH ×4 (11:54→23:42)
[2023-03-29] MEDS: ENOXAPARIN 40 MG/0.4 ML SYRINGE SQ SCH (12:26)
[2023-03-29] MEDS: DEXAMETHASONE SOD PHOSPHATE 10 MG/ML 1 ML VIAL IVP SCH (12:26)
[2023-03-29] MEDS: LORazepam 2 MG/ML INJ IV PRN (12:32)
--- NOTE | 2023-03-29 12:54 | P.PN ---
Subjective Progress Note Date: 03/29/23 Pt was sent to the ICU and intubated with plans for bronchoscopy today. Discussed case with pulmonology - thick secretions and mucus plugging suctioned from RLL. Consolidation appears c/w pneumonia. Pleural effusion is chronic in nature and likely non-contributory. General: intubated, sedated HEENT: normocephalic, atraumatic, no tracheal deviation Respiratory: symmetric chest rise, no cyanosis, ventilator dependent CVS: perfusing all extremities, no distal gangrene, no pitting edema GI: soft, ND : no SPT, no CVAT, crespo is present Neuro: sedated Hospital course: Patient is a very pleasant 82-year-old female with a past medical history of COPD with chronic hypoxic respiratory failure on 4 L O2 nasal cannula at all times, NON-small cell lung cancer in 2016 status post chemo and radiation currently in remission, chronic right pleural effusion with Pleurx catheter in place 2 years, hypertension, and hyperlipidemia. She presented to the hospital on 03/22/23 secondary to worsening shortness of breath. Upon arrival to the hospital patient underwent full evaluation. Chest x-ray was completed showing o verall similar examination with background COPD changes and right pleural effusion and patchy consolidation, unable to rule out pneumonia. EKG was completed showing normal sinus rhythm at 66 bpm with no noted T-wave or ST abnormalities upon personal review and interpretation. CT head also completed negative for acute intercranial process showing nonspecific white matter changes. Labs completed and reviewed. CBC showing leukocytosis with WBC count of 15.8. Venous blood gas showing elevated patient was admitted under our services with consultation to pulmonology and cardiothoracic surgery. Valproic acid level was obtained resulting slightly subtherapeutic at 44.1. Covid PCR negative. CRP elevated at 6.40. Patient was started on IV antibiotics with Zosyn and azithromycin. Pro-calcitonin negative at 0.09 and antibiotics discontinued at this time. On the morning of 03/24/23, cardiothoracic surgery drained 350 mL out of right lung from Pleurx catheter. Patient continued with worsening shortness of breath and was on 6 L O2 via nasal cannula with SpO2 of 86%. Patient's condition continued to further deteriorate. 03/25/23 repeat chest x-ray showing right lower lobe consolidation and small effusion stable with persistent prominence of the right hilum unchanged. 03/27/23 chest x-ray again repeated again showing stable lower lobe consolidation and pleural effusion unchanged from prior examination. Patient's condition worsening requiring placement on Venturi Mask at 15 L O2 and 50% FiO2. CT chest without contrast on completed showing concerns of moderate sized right pleural effusion with thick wall and pleural catheter in place raising concerns for empyema along with 2 loculated thick-walled collections in the right mid and upper lung also suspicious for possible empyema versus loculated pleural effusions, reticular opacities and consolidation throughout the right lung most prominent within the base consistent with pneumonia, and small left pleural effusion with associated atelectasis and moderate to severe COPD changes. Discussed CT findings with learning technologist and called cardiothoracic surgery for drainage. Pleurx catheter drainage was sent to microbiology. Assessment and Plan of Care: Acute on chronic respiratory failure with hypoxia and hypercarbia Pneumonia of right lung COPD without exacerbation Chronic right pleural effusion with Pleurx catheter History of NON-small cell lung cancer status post chemo and radiation in 2016 currently in remission -Pulmonology following, discussed patient condition and plan of care with learning technologist - see subjective above for details -Pt intubated in ICU, continue propofol gtt -Continue nebulized albuterol treatments 4 times daily scheduled and Duonebs every 2 hours as needed for SOB and/or wheezing -Continue Pulmicort and formoterol. -Steroids: Continue with Decadron 6 mg daily. -Antibiotics: vancomycin 1250 mg every 16 hours and cefepime 2 g every 8 hours. -We will follow up on repeat morning BMP and vancomycin troph to monitor for any signs of vancomycin associated renal toxicity. Hypertension Vital signs reviewed and stable. Patient to continue with atenolol 50 mg daily. Hypothyroidism Patient to continue daily medication regimen with levothyroxine 100 g daily. Hyperlipidemia Patient to continue with daily medication regimen with atorvastatin 20 mg nightly. Moderate protein calorie malnutrition -Patient to continue with Premier protein supplements 3 times daily between meals. -Dietitian following. Data reviewed: -Afebrile, 109/48, 97% on 80% FiO2 -WBC 29.2, Hgb 11.6, PLT 229; CO2 31, BUN 20 Imaging reviewed: -CT chest without contrast on completed showing concerns of moderate sized right pleural effusion with thick wall and pleural catheter in place raising concerns for empyema along with 2 loculated thick-walled collections in the right mid and upper lung also suspicious for possible empyema versus loculated pleural effusions, reticular opacities and consolidation throughout the right lung most prominent within the base consistent with pneumonia, and small left pleural effusion with associated atelectasis and moderate to severe COPD changes. -Bronchoscopy 03/29: There was copious amount of mucous plugs occupying the right mainstem bronchus. As such, therapeutic airway suctioning was done. Around 30 mL of copious respiratory secretions were aspirated from the right lung. CODE STATUS: DO NOT RESUSCITATE, patient NO to CPR and YES to intubation and mechanical ventilation. DVT prophylaxis: Lovenox Objective - Vital Signs Vital signs: Vital Signs Temp 98.1 F 03/29/23 12:00 Pulse 75 03/29/23 12:00 Resp 13 03/29/23 12:00 BP 101/47 03/29/23 10:10 Pulse Ox 97 03/29/23 12:00 FiO2 80 03/29/23 11:10 Intake & Output 03/28/23 03/29/23 03/29/23 18:59 06:59 18:59 Intake Total 553.342 Output Total 250 410 Balance -250 143.342 Weight 66.678 kg 66.678 kg Intake: IV 500 0.9ns fluid bolus 500 Intake, IV Titration 53.342 Amount propofoL 1,000 mg In 53.342 Empty Bag 1 bag @ 15 MCG/ KG/MIN 6.001 mls/hr IV . [id number] REPLACED BY [facility] Rx#:[id number] Output: Chest Tube Drainage 250 160 Pleural Catheter Right 250 160 Lower Anterior Chest Urine 250 Other: Voiding Method Toilet Toilet # Voids 5 3 # Bowel Movements 1 ABP, PAP, CO, CI - Last Documented Arterial Blood Pressure 109/48 - Labs CBC & Chem 7: 03/29/23 07:38 03/29/23 07:38 Labs: Abnormal Lab Results - Last 24 Hours (Table) 03/29/23 03/29/23 03/29/23 Range/Units 07:38 07:38 10:57 WBC 29.2 H (3.8-10.6) k/uL ABG pCO2 50 H (35-45) mmHg ABG pO2 128 H (83-108) mmHg ABG HCO3 31 H (21-25) mmol/L ABG Total CO2 33 H (19-24) mmol/L ABG O2 Saturation 98.5 H (94-97) % Carbon Dioxide 31 H (22-30) mmol/L BUN 20 H (7-17) mg/dL Glucose 104 H (74-99) mg/dL Calcium 7.9 L (8.4-10.2) mg/dL Total Protein 4.5 L (6.3-8.2) g/dL Albumin 2.3 L (3.5-5.0) g/dL Microbiology - Last 24 Hours (Table) 03/22/23 20:45 Blood Culture - Final Blood 03/26/23 14:35 Gram Stain - Final Sputum Sputum Culture - Final Dilia albicans
[2023-03-29] MEDS ORDERED: SODIUM CHLORIDE 0.9% 1,000 ML IV ONE (15:35)
--- NOTE | 2023-03-29 16:28 | P.PN ---
Subjective Progress Note Date: 03/29/23 Principal diagnosis: Pneumonia Patient is a 82-year-old female with a past medical history significant for hypertension hyperlipidemia osteoarthritis DVT COPD small cell lung cancer did have history of right-sided effusion status post thoracocentesis and Pleurx catheter placement presenting the hospital with increasing shortness of breath and concern for possible pneumonia. Patient did have a worsening respiratory status requiring transparency. Regarding debrided and also have a bronchoscopy done on 03/29/2023 On today's evaluation that is 03/29/2023 patient continues to be afebrile, the patient currently intubated on the vent and FiO2 at 75%, patient is currently not on any pressor support a significant purulent secretions through the ET, vomiting or diarrhea reported by the nursing staff Patient white count is white count is about the same as yesterday at 29.2, creatinine 0.57, pleural fluid and bronchoscopy cultures currently pending Objective - Vital Signs Vital signs: Vital Signs Temp 98.1 F 03/29/23 12:00 Pulse 73 03/29/23 13:15 Resp 20 03/29/23 13:15 BP 101/47 03/29/23 10:10 Pulse Ox 97 03/29/23 13:15 FiO2 80 03/29/23 12:00 Intake & Output 03/28/23 03/29/23 03/29/23 18:59 06:59 18:59 Intake Total 553.342 Output Total 250 430 Balance -250 123.342 Weight 66.678 kg 66.678 kg Intake: IV 500 0.9ns fluid bolus 500 Intake, IV Titration 53.342 Amount propofoL 1,000 mg In 53.342 Empty Bag 1 bag @ 15 MCG/ KG/MIN 6.001 mls/hr IV . [id number] Rx#:[id number] Output: Chest Tube Drainage 250 160 Pleural Catheter Right 250 160 Lower Anterior Chest Urine 270 Other: Voiding Method Toilet Toilet Indwelling Catheter # Voids 5 3 # Bowel Movements 1 ABP, PAP, CO, CI - Last Documented Arterial Blood Pressure 97/47 - Exam GENERAL DESCRIPTION: Elderly female intubated on the vent RESPIRATORY SYSTEM: Unlabored breathing , decreased breath sounds at bases HEART: S1 S2 regular rate and rhythm ,no loud murmurs ABDOMEN: Soft , no tenderness EXTREMITIES: No edema feet - Labs CBC & Chem 7: 03/29/23 07:38 03/29/23 07:38 Labs: Abnormal Lab Results - Last 24 Hours (Table) 03/29/23 03/29/23 03/29/23 Range/Units 07:38 07:38 10:57 WBC 29.2 H (3.8-10.6) k/uL ABG pCO2 50 H (35-45) mmHg ABG pO2 128 H (83-108) mmHg ABG HCO3 31 H (21-25) mmol/L ABG Total CO2 33 H (19-24) mmol/L ABG O2 Saturation 98.5 H (94-97) % Carbon Dioxide 31 H (22-30) mmol/L BUN 20 H (7-17) mg/dL Glucose 104 H (74-99) mg/dL Calcium 7.9 L (8.4-10.2) mg/dL Total Protein 4.5 L (6.3-8.2) g/dL Albumin 2.3 L (3.5-5.0) g/dL Microbiology - Last 24 Hours (Table) 03/22/23 20:45 Blood Culture - Final Blood 03/26/23 14:35 Gram Stain - Final Sputum Sputum Culture - Final Dilia albicans Assessment and Plan (1) Pneumonia Current Visit: Yes Status: Acute Priority: High Code(s): J18.9 - PNEUMONIA, UNSPECIFIED ORGANISM SNOMED Code(s): 520305666 Plan: 1patient presented to hospital with shortness of breath did have a cough productive sputum in addition to the anxiety and some mental status changes chest x-ray with right-sided effusion and consolidation concerning for pneumonia possible gram-negative as the patient has been in and out of hospital recently. 2initial blood and sputum cultures are so far negative 3patient did have a CT of the chest did show moderate size right pleural effusion with thick wall and pleural catheter in place a concern for possible empyema patient is status post drainage of the fluid had been sent for culture , patient also has a bronchoscopy completed and brought keloid sent for culture which is currently pending 4patient to continue with vancomycin and cefepime, while waiting for the cultures to finalize at the bedside questions are answered Dictation was produced using [employer] (formerly [employer]) dictation software. please excuse any grammatical, word or spelling errors. Time with Patient: Less than 30
[2023-03-29] MEDS: SODIUM CHLORIDE 0.9% 1,000 ML IV SCH ×2 (16:51→18:50)
[2023-03-29 17:48] LABS: Glucose,Whole Blood 128 mg/dL (70-110)
[2023-03-29] MEDS: FLUCONAZOLE IN NACL,ISO-OSM 100 MG in SALINE 1 50ML.BAG IVPB SCH (18:33)
[2023-03-29] MEDS: CHLORHEXIDINE GLUCONATE 15 ML CUP MUCOUS MEM SCH (20:31)
[2023-03-29] MEDS: ASPIRIN 81 MG PO SCH (20:31)
[2023-03-29] MEDS: ATORVASTATIN 20 MG TAB PO SCH (20:31)
[2023-03-29] MEDS: VANCOMYCIN 1,250 MG in SODIUM CHLORIDE 0.9% 250 ML IVPB SCH (20:31)
[2023-03-29] MEDS: MIRTAZAPINE 15 MG TAB PO SCH (20:51)
[2023-03-29 23:35] LABS: Glucose,Whole Blood 128 mg/dL (70-110)
[2023-03-30] MEDS: SODIUM CHLORIDE 0.9% 1,000 ML IV SCH ×3 (02:20→18:12)
[2023-03-30] MEDS: IPRATROPIUM-ALBUTEROL 3 ML NEB INHALATION SCH ×6 (03:52→23:26)
[2023-03-30 04:44] LABS: ALT 15 U/L (4-34); AST 17 U/L (14-36); African American GFR (CKD) >90 (>60 ml/min/1.73 sqM); Albumin 2.1 g/dL (3.5-5.0); Alkaline Phosphatase 79 U/L (38-126); Anion Gap 3 mmol/L; Blood Urea Nitrogen 21 mg/dL (7-17); Calcium 7.3 mg/dL (8.4-10.2); Carbon Dioxide 26 mmol/L (22-30); Chloride 111 mmol/L (98-107); Glucose 118 mg/dL (74-99); Magnesium 2.1 mg/dL (1.6-2.3); Non-African American GFR(CKD) 86 (>60 ml/min/1.73 sqM); Potassium 4.2 mmol/L (3.5-5.1); Sodium 140 mmol/L (137-145); Total Bilirubin 0.2 mg/dL (0.2-1.3); Total Protein 4.2 g/dL (6.3-8.2)
[2023-03-30 05:08] LABS: HGB 10.9 gm/dL (11.4-16.0); Hypochromasia Moderate; MCH 30.6 pg (25.0-35.0); MCV 95.5 fL (80.0-100.0); Mean Platelet Volume 7.4; Platelet Count 246 k/uL (150-450); RBC 3.56 m/uL (3.80-5.40); RDW 13.8 % (11.5-15.5); WBC 35.2 k/uL (3.8-10.6)
[2023-03-30 05:49] LABS: ABG HCO3 27 mmol/L (21-25); ABG Oxygen Saturation 97.6 % (94-97); ABG PCO2 44 mmHg (35-45); ABG PO2 103 mmHg (83-108); ABG TCO2 28 mmol/L (19-24); Allen Test Performed? Yes
[2023-03-30 05:50] LABS: Band Neutrophils % 25 %; Basophils # (M) 0.35 k/uL (0-0.2); Eosinophils # (M) 5.98 k/uL (0-0.7); Lymphocytes # (M) 0.35 k/uL (1.0-4.8); Monocytes # (M) 2.82 k/uL (0-1.0); Myelocytes % 2 %; Neutrophils % (M) 47 %; Nucleated Red Blood Cells 0 /100 WBC (0-0); Total Cells Counted 200
[2023-03-30 06:34] LABS: Glucose,Whole Blood 110 mg/dL (70-110)
[2023-03-30] MEDS: BUDESONIDE 1 MG/2 ML NEBU INHALATION SCH ×2 (07:45→19:40)
[2023-03-30] MEDS: FORMOTEROL FUMARATE 20 MCG/2 ML NEBU INHALATION SCH ×2 (07:45→19:40)
[2023-03-30] MEDS: CEFEPIME 2 GM in SODIUM CHLORIDE 0.9% 100 ML IVPB SCH ×3 (07:47→23:39)
--- NOTE | 2023-03-30 07:53 | XR ---
EXAMINATION TYPE: XR chest 1V portable DATE OF EXAM: 03/30/2023 COMPARISON: 03/29/2023 HISTORY: SOB, Follow Up FINDINGS: Indwelling tubes and catheters are unchanged. Right perihilar and right basilar infiltrate persists essentially unchanged. There are small effusion and pulmonary venous congestion. Stable appearance of the cardio-mediastinal structures at this time. Pleural effusion unchanged. IMPRESSION: 1. Right perihilar and right basilar infiltrate persists essentially unchanged. There are small effu kacey and pulmonary venous congestion.
--- NOTE | 2023-03-30 08:47 | P.PN ---
Subjective Progress Note Date: 03/30/23 This is a pleasant 82-year-old female with a past medical history significant for COPD/emphysema, chronic hypoxemic respiratory failure on 3 L/m nasal cannula 24/02, left lung squamous cell carcinoma status post chemoradiation, recurrent right-sided pleural effusions with Pleurx catheter inserted December 2020. She also has history of hypertension, hyperlipidemia, hypothyroidism, atrial fibrillation, and right upper extremity DVT. If she was just discharged on 03/03/2023 following concerns regarding bloody fluid from her Pleurx catheter. She presented here to the emergency room yesterday with complaints of increasing anxiety and some altered mental status according to her . Computed tomography scan of the brain revealed no acute intracranial process. Her Pleurx catheter is drained every third day with about 300 ML's of fluid returned. Chest x-ray reveals similar presentation with background COPD changes and right pleural effusion with patchy consolidation. White count 15.8. Hemoglobin 14.2. Platelets 284. Sodium 142. Potassium 4.3. Bicarb 29. BUN 8. Creatinine 0.8. Glucose 113. C-reactive protein 6.4. Pro-calcitonin 0.09. Coronavirus not detected. She is seen today in consultation on the regular medical floor. She is awake and alert. Somewhat anxious. Maintaining O2 saturations in the 90s on 4 L/m per nasal cannula. Afebrile. Hemodynamically stable. On today's evaluation of 03/24/2023, the patient is still having difficulty breathing. She underwent a drainage of the Pleurx catheter on the right and the patient had a total of 300 mL of pleural fluid evacuated. The patient is still coughing some yellowish sputum. There may be a component of COPD exacerbation. The blood gas was done and the patient was having difficulties in her pulse ox recording. The patient is currently on 6 L and the pulse ox 94%. The blood gas showed a pH of 7.42 with a pCO2 of 51 and pO2 of 59 and this was done on 4 L of oxygen by nasal cannula. The white cell count of 16.2 with a hemoglobin 12.6. The patient is hesitant to take any form of steroids due to his altered mentation depression. The previous cigarette 16.2 with a hemoglobin of 12.6. Pro-calcitonin level is at 0.09. The chest x-ray from yesterday showed stable right-sided pleural effusion and patchy consolidation on the right. On today's evaluation of 03/25/2023, the patient is still struggling with her breathing. She has a cough and congestion and she is unable to bring up much sputum. Noted the rest or secretions are quite thick and tenacious. Sample was sent for cultures and is also still pending for now and the patient remains on IV Rocephin for the time being. She is also on Mucinex DM for cough and congestion. She is on DuoNeb nebulized treatments [id number]. She took a dose of Decadron yesterday, unable to tolerate steroids because of cloudiness in her mentation and some increase restlessness. As such, no steroids are being provided this point in time. The chest x-ray was repeated today and there is opacification of the right lung base. There is a Pleurx catheter in good location. There may be an underlying consolidation/pneumonia. The left lung is essentially clear. His volume is in the right as noted on the chest x-ray. The white cell count from yesterday was at 16.2. She remains on oxygen and she is on 6 L. She has poor respiratory reserve and she gets short of breath with minimal amount of activity. On 03/26/2023, I'm seeing the patient for a follow-up. Limited progress since yesterday. She continues to have significant respiratory distress and insufficiency. She remains on 6 L of oxygen by nasal cannula. She is coughing up thick mucus yellow in color. She will going to be offered a flutter valve. The sputum sample that was sent earlier was negative for any microbial growth. I switched this patient's antibiotic coverage to include a combination of Zosyn and Zithromax. The white cell count is elevated at 21.7. Hemoglobin is 12. BUN is at 12 with a creatinine of 0.6 and a sodium level is at 144. She remains quite short of breath and she has limited respiratory reserve and she gets short of breath with minimal amount of activity. At times, she is also having cloudiness in her mentation. On today's evaluation of 03/27/2023, seeing the patient for a follow-up. The patient is still struggling with her breathing. Earlier this morning, she had increased shortness of breath and the patient was placed on a simple face mask. She is using a flutter valve. She is cough and mucus. A repeat chest x-ray was done and showed a stable consolidation and pleural effusion which is essentially unchanged and most of the abnormalities are in the right lower lobe. We are going to drain the right-sided pleural effusion as the patient has a Pleurx catheter and she receives periodic drainage and we will continue the current a ntibiotic coverage included a combination of Zosyn and Zithromax. The labs from today shows a diminished count 23.8 with a hemoglobin of 11.7. The BUN is at 16 with a creatinine of 0.6 and a sodium level is at 139. The rest of the electrolytes are all within normal limits. We will going to transition her back to nasal cannula. She is requiring approximately 6 L of oxygen nasal cannula. Minimal progress of any and I would say condition is essentially unchanged over the past 24 hours. 03/28/2023, the patient continues to struggle with her breathing patient continues to be short of breath. She is having a congestive cough and she is able to produce copious amount of secretions. Another sputum sample will be sent for Gram stain and culture. She is feeling any chest pain. She is leth argic and she is awake and she is communicating and is currently on 6 L of oxygen by nasal cannula. I did another antibiotic adjustment and I put the patient on accommodation of cefepime and vancomycin. Another drainage of the Pleurx catheter was done with a total of 250 mL of fluid was aspirated. The fluid was sent for culture. Repeat CAT scan of the chest was done yesterday and there was more loculated right lower lobe thick-walled collection on the left and this is a posterior fluid collection and is more significant the left lower lobe and the Pleurx catheter is in good location. At the same time, there is significant consolidation of the right lung. A small amount of left pleural effusion is also seen. There is diffuse emphysema. Upon comparing to the earlier CAT scan of the chest, I would say the pleural fluid is more than the left lung base. Nevertheless, there is worsening the consolidation of the right lower lobe. As such, I'm highly concerned that the patient may have an underlying right lung infection. This is consistent with pneumonia. The possibility of pleural fluid being infected/empyema cannot be completely excluded. The echoes on the rise and currently is up to 29 with a hemoglobin of 12.2. BUN is at 16 with a creatinine of 0.7. Sodium level is at 139. The potassium levels at 4.6. 03/29/2023, the patient continues to be short of breath and she is currently on a 50% Ventimask. Pulse ox is ranging between 89-90%. She is having difficulti es with her speech. She continues to have a cough and congestion. A repeat sputum sample was positive for Dilia. She is afebrile. Current antibiotic coverage is vancomycin and cefepime. The pleural fluid was drained yesterday and amount of fluid was aspirated was minimal. I had a lengthy discussion with the patient and her . I offered bronchoscopy while the patient being intubated on a mechanical ventilator. Despite her no CODE STATUS, she consented for the procedure as the patient kept on saying that something has to be done to give it a chance to improve. Unfortunately, her course has been quite complicated and the patient has not shown any significant recovery over the past 1 week while being in antibiotic coverage. She continues to struggle with her breathing and she continues to be short of breath. Labs from today are still pending. I'm going to do a quick CBC and complete metabolic profile and the plan is to take this patient to endoscopy suite, intubated bronchoscope and collect samples from her lungs and perform therapeutic airway suctioning. Subsequently, she is going to go to the intensive care unit and she'll be kept on a mechanical ventilator for now. A 2022, the patient remains intubated on a mechanical ventilator. Earlier this morning, the propofol dose was brought up to 50 mcg/kg/m. She is, comfortable, on a mechanical ventilator, currently on assist control mode at the rate of 20, tidal volume is 400, FiO2 is currently at 60% and the PT is at 10. PH of 7.4 with a pCO2 of 44 and pO2 of 103 and this was on FiO2 of 70%. Chest x-ray shows residual opacification of the right lung base. ET tube is in a good location. There is persistent infiltration of the right lung base. The patient has a Pleurx catheter which is essentially continuous suction and the total amount of output since yesterday was 300 mL. Bronchoscopy and bronchoalveolar lavage was done and the results are still pending for now. The patient is borderline hypotensive and she is requiring pressors. Norepinephrine is currently running at 0.07 mcg/kg/m. She was given fluid boluses yesterday and the net fluid balance is +1 L over the past 24 hours. White cell count is up to 35, hemoglobin is at 10.9 and a platelet count is 246. BUN is 21 with a creatin ine of 0.6 and a sodium levels of 140. In terms of antibiotic coverage, the patient is currently on a combination of cefepime, vancomycin and Diflucan. I'm going to start on low-dose steroids give the patient 40 mg IV Solu-Medrol every 12 hours. We will hold diuretics for now. Enteral feeding was also started and the patient is currently on vital high-protein at rate of 60 mL an hour. Most recent urine output is in order of 45 mL an hour. IV fluids in the form of normal saline at rate of 100 mL an hour. Objective - Vital Signs Vital signs: Vital Signs Temp 98.2 F 03/30/23 06:20 Pulse 70 03/30/23 07:47 Resp 20 03/30/23 07:00 BP 97/49 03/30/23 07:00 Pulse Ox 94 L 03/30/23 07:00 FiO2 60 03/30/23 07:46 Intake & Output 03/29/23 03/30/23 03/30/23 18:59 06:59 18:59 Intake Total 910.912 4861.897 10 Output Total 685 323 30 Balance 6.022 1301.897 -20 Weight 66.678 kg 74 kg Intake: IV 500 0.9ns fluid bolus 500 Intake, IV Titration 590.621 4259.897 Amount Norepinephrine 8 mg In 75.051 Sodium Chloride 0.9% 250 ml @ 0.03 MCG/KG/MIN 3. 871 mls/hr IV .Q24H [facility] Rx#:[id number] Sodium Chloride 0.9% 1, 1000 000 ml @ 100 mls/hr IV . Q10H [facility] Rx#:[id number] Vancomycin 1,250 mg In 250 Sodium Chloride 0.9% 250 ml @ 125 mls/hr IVPB Q16H [facility] Rx#:[id number] propofoL 1,000 mg In 141.022 189.846 Empty Bag 1 bag @ 15 MCG/ KG/MIN 6.001 mls/hr IV . [id number] [facility] Rx#:[id number] Tube Feeding 50 110 10 Output: Chest Tube Drainage 300 30 Pleural Catheter Right 300 30 Lower Anterior Chest Urine 385 293 30 Other: Voiding Method Indwelling Catheter Indwelling Catheter # Bowel Movements 1 ABP, PAP, CO, CI - Last Documented Arterial Blood Pressure 99/47 - Exam GENERAL EXAM: Patient is currently sedated, calm and comfortable on mechanical ventilator. Orotracheal and orogastric tube are both in place. HEAD: Normocephalic. EYES: Normal reaction of pupils, equal size. NOSE: Clear with pink turbinates. THROAT: No erythema or exudates. NECK: No masses, no JVD. CHEST: No chest wall deformity. Pleurx catheter remains in place to the right chest. The breath sounds are diminished in the right lung base and the patient has crackles. Right Pleurx catheter/ is attached the pleural VAC LUNGS: Equal air entry with crackles in the right lung base. CVS: S1 and S2 normal with no audible murmur, regular rhythm. ABDOMEN: No hepatosplenomegaly, normal bowel sounds, no guarding or rigidity. SPINE: No scoliosis or deformity SKIN: No rashes CENTRAL NERVOUS SYSTEM: No focal deficits, tone is normal in all 4 extremities. Patient is sedated EXTREMITIES: There is no peripheral edema. No clubbing, no cyanosis. Peripheral pulses are intact. - Labs CBC & Chem 7: 03/30/23 04:20 03/30/23 04:20 Labs: Abnormal Lab Results - Last 24 Hours (Table) 03/29/23 03/29/23 03/29/23 Range/Units 07:38 10:57 17:46 WBC (3.8-10.6) k/uL RBC (3.80-5.40) m/uL Hgb (11.4-16.0) gm/dL Neutrophils # (Manual) (1.3-7.7) k/uL Lymphocytes # (Manual) (1.0-4.8) k/uL Monocytes # (Manual) (0-1.0) k/uL Eosinophils # (Manual) (0-0.7) k/uL Basophils # (Manual) (0-0.2) k/uL Myelocytes # (Manual) (0) k/uL ABG pCO2 50 H (35-45) mmHg ABG pO2 128 H (83-108) mmHg ABG HCO3 31 H (21-25) mmol/L ABG Total CO2 33 H (19-24) mmol/L ABG O2 Saturation 98.5 H (94-97) % Chloride (98-107) mmol/L Carbon Dioxide 31 H (22-30) mmol/L BUN 20 H (7-17) mg/dL Glucose 104 H (74-99) mg/dL POC Glucose (mg/dL) 128 H (70-110) mg/dL Calcium 7.9 L (8.4-10.2) mg/dL Total Protein 4.5 L (6.3-8.2) g/dL Albumin 2.3 L (3.5-5.0) g/dL 03/29/23 03/30/23 03/30/23 Range/Units 23:33 04:20 04:20 WBC 35.2 H (3.8-10.6) k/uL RBC 3.56 L (3.80-5.40) m/uL Hgb 10.9 L (11.4-16.0) gm/dL Neutrophils # (Manual) 25.30 H (1.3-7.7) k/uL Lymphocytes # (Manual) 0.35 L (1.0-4.8) k/uL Monocytes # (Manual) 2.82 H (0-1.0) k/uL Eosinophils # (Manual) 5.98 H (0-0.7) k/uL Basophils # (Manual) 0.35 H (0-0.2) k/uL Myelocytes # (Manual) 0.70 H (0) k/uL ABG pCO2 (35-45) mmHg ABG pO2 (83-108) mmHg ABG HCO3 (21-25) mmol/L ABG Total CO2 (19-24) mmol/L ABG O2 Saturation (94-97) % Chloride 111 H (98-107) mmol/L Carbon Dioxide (22-30) mmol/L BUN 21 H (7-17) mg/dL Glucose 118 H (74-99) mg/dL POC Glucose (mg/dL) 128 H (70-110) mg/dL Calcium 7.3 L (8.4-10.2) mg/dL Total Protein 4.2 L (6.3-8.2) g/dL Albumin 2.1 L (3.5-5.0) g/dL 03/30/23 Range/Units 05:45 WBC (3.8-10.6) k/uL RBC (3.80-5.40) m/uL Hgb (11.4-16.0) gm/dL Neutrophils # (Manual) (1.3-7.7) k/uL Lymphocytes # (Manual) (1.0-4.8) k/uL Monocytes # (Manual) (0-1.0) k/uL Eosinophils # (Manual) (0-0.7) k/uL Basophils # (Manual) (0-0.2) k/uL Myelocytes # (Manual) (0) k/uL ABG pCO2 (35-45) mmHg ABG pO2 (83-108) mmHg ABG HCO3 27 H (21-25) mmol/L ABG Total CO2 28 H (19-24) mmol/L ABG O2 Saturation 97.6 H (94-97) % Chloride (98-107) mmol/L Carbon Dioxide (22-30) mmol/L BUN (7-17) mg/dL Glucose (74-99) mg/dL POC Glucose (mg/dL) (70-110) mg/dL Calcium (8.4-10.2) mg/dL Total Protein (6.3-8.2) g/dL Albumin (3.5-5.0) g/dL Microbiology - Last 24 Hours (Table) 03/29/23 10:00 Gram Stain - Preliminary Bronchial Washings - Right Assessment and Plan Plan: Acute on chronic hypoxemic respiratory failure due to chronic changes in the right chest, unchanged. Pleurx catheter remains in place. The patient is currently on 6 L of oxygen by nasal cannula. No interval worsening in oxygenation. There is evidence of a right lung pneumonia with significant consolidation of the right lung base. At the same time, there is located right- sided pleural effusion and a large collection in the right lung base. Pleurx catheter remains in a good location. The fluid that is draining from the right lower is nonpurulent. Cultures were sent. Bronchoscopy was done regarding the right lower lobe consolidation and microbial cultures are still pending. Meanwhile, the patient remains on broad- spectrum antibiotics. She is on a combination of cefepime, vancomycin and Diflucan. Currently intubated on a mechanical ventilator. Adequate oxygenation. Adequate ventilation. Follow-up chest x-ray was noted. There is residual consolidation of the right lung base. Leukocytosis secondary to above, white cell count remains elevated Loculated right-sided pleural effusion, as discussed above. The patient is also developed a small left-sided pleural effusion. The Pleurx catheter is attached to continuous suction at this point in time Anxiety secondary to above Hypertension currently on pressors. Consider underlying pneumonia/sepsis with persistent leukocytosis ongoing hypotension. Cultures are still pending for now. 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 PET scan performed in February 2023 showed no suspicious uptake suggesting metastatic disease. There was a small to moderate loculated right pleural fluid collection. The patient has had a chronic right-sided pleural effusion and she has undergone episodic drainage for a Pleurx catheter on the right lung. Repeated pleural fluid cytology has been negative for malignancy. There is a concern for a pleural space infection. Previous pleural fluid has shown polymicrobial growth which I think is contaminant. There may be value to repeat a pleural fluid culture. History of COPD Benign essential hypertension Hyperlipidemia Hypothyroidism Remote history of right upper extremity DVT, not anticoagulated Plan: Continue ventilator support. We'll dropped FiO2 down to 50% and continue weaning down to FiO2 as long as the patient remains above 92% if keep the PEEP of 10. We'll continue IV fluids Continue pressors Continue same antibiotic coverage Awaiting results of the bronchial lavage Keep the Pleurx catheter attached to continuous suction Enteral feeding for nutritional support Propofol for sedation Start Solu-Medrol 40 mg every 12 hours and discontinue the Decadron Continue bronchodilators Long-term prognosis poor. She is a DNR/DNI CODE STATUS.. Long-term prognosis poor based on the above and I had a lengthy discussion with her the bedside. Physical. Evaluation that was done in more than 30 minutes. Time with Patient: Greater than 30
[2023-03-30] MEDS: PANTOPRAZOLE 40 MG/10 ML VIAL IV SCH (09:11)
[2023-03-30] MEDS: ENOXAPARIN 40 MG/0.4 ML SYRINGE SQ SCH (09:11)
[2023-03-30] MEDS: DIVALPROEX 250 MG TABLET.DR PO SCH ×2 (09:14→21:07)
[2023-03-30] MEDS: CHLORHEXIDINE GLUCONATE 15 ML CUP MUCOUS MEM SCH ×2 (09:15→21:07)
[2023-03-30] MEDS: atenoloL 50 MG TAB PO SCH (09:15)
[2023-03-30] MEDS: guaiFENesin-DM 600/30MG 1 EACH TAB.ER.12H PO SCH ×2 (09:16→21:09)
[2023-03-30] MEDS: SERTRALINE 50 MG TAB PO SCH (09:17)
[2023-03-30] MEDS: LEVOTHYROXINE 100 MCG TAB PO SCH (09:17)
[2023-03-30] MEDS: ARIPiprazole 2 MG TAB PO SCH (09:17)
[2023-03-30] MEDS: methylPREDNISolone SOD SUCCI 40 MG/ML 1 ML VIAL IV SCH ×2 (09:46→21:08)
[2023-03-30] MEDS ORDERED: LORazepam 2 MG/ML INJ IV STA (10:19)
[2023-03-30 11:46] LABS: Glucose,Whole Blood 124 mg/dL (70-110)
[2023-03-30] MEDS: VANCOMYCIN 1,250 MG in SODIUM CHLORIDE 0.9% 250 ML IVPB SCH (12:28)
--- NOTE | 2023-03-30 14:16 | P.PN ---
Subjective Progress Note Date: 03/30/23 Principal diagnosis: Pneumonia Patient is a 82-year-old female with a past medical history significant for hypertension hyperlipidemia osteoarthritis DVT COPD small cell lung cancer did have history of right-sided effusion status post thoracocentesis and Pleurx catheter placement presenting the hospital with increasing shortness of breath and concern for possible pneumonia. Patient did have a worsening respiratory status requiring transparency. Regarding debrided and also have a bronchoscopy done on 03/29/2023 On today's evaluation that is 03/30/2023, the patient is afebrile patient is currently on a 50% FiO2 that is less than yesterday, no significant purulent secretions through the ET, vomiting diarrhea or any other changes reported by the nursing staff. Patient white count is up to 35.2, creatinine is 0.62 patient sputum culture showing Dilia albicans pleural fluid and bronchial washings so far pending Objective - Vital Signs Vital signs: Vital Signs Temp 98.2 F 03/30/23 06:20 Pulse 81 03/30/23 13:00 Resp 20 03/30/23 13:00 BP 108/56 03/30/23 13:00 Pulse Ox 98 03/30/23 13:00 FiO2 50 03/30/23 12:00 Intake & Output 03/29/23 03/30/23 03/30/23 18:59 06:59 18:59 Intake Total 477.957 4554.897 1160.335 Output Total 685 323 240 Balance 6.022 1301.897 920.335 Weight 66.678 kg 74 kg Intake: IV 500 0.9ns fluid bolus 500 Intake, IV Titration 407.593 3132.897 1060.335 Amount Cefepime 2 gm In Sodium 100 Chloride 0.9% 100 ml @ 25 mls/hr IVPB Q8HR [facility] Rx# :[id number] Norepinephrine 8 mg In 75.051 46.856 Sodium Chloride 0.9% 250 ml @ 0.03 MCG/KG/MIN 3. 871 mls/hr IV .Q24H [facility] Rx#:[id number] Sodium Chloride 0.9% 1, 1000 600 000 ml @ 100 mls/hr IV . Q10H [facility] Rx#:[id number] Vancomycin 1,250 mg In 250 250 Sodium Chloride 0.9% 250 ml @ 125 mls/hr IVPB Q16H [facility] Rx#:[id number] propofoL 1,000 mg In 141.022 189.846 63.479 Empty Bag 1 bag @ 15 MCG/ KG/MIN 6.001 mls/hr IV . [id number] [facility] Rx#:[id number] Tube Feeding 50 110 70 Other 30 Output: Chest Tube Drainage 300 30 0 Pleural Catheter Right 300 30 0 Lower Anterior Chest Urine 385 293 240 Other: Voiding Method Indwelling Catheter Indwelling Catheter Indwelling Catheter # Bowel Movements 1 ABP, PAP, CO, CI - Last Documented Arterial Blood Pressure 133/56 - Exam GENERAL DESCRIPTION: Elderly female intubated on the vent RESPIRATORY SYSTEM: Unlabored breathing , decreased breath sounds at bases HEART: S1 S2 regular rate and rhythm ,no loud murmurs ABDOMEN: Soft , no tenderness EXTREMITIES: No edema feet - Labs CBC & Chem 7: 03/30/23 04:20 03/30/23 04:20 Labs: Abnormal Lab Results - Last 24 Hours (Table) 03/29/23 03/29/23 03/30/23 Range/Units 17:46 23:33 04:20 WBC 35.2 H (3.8-10.6) k/uL RBC 3.56 L (3.80-5.40) m/uL Hgb 10.9 L (11.4-16.0) gm/dL Neutrophils # (Manual) 25.30 H (1.3-7.7) k/uL Lymphocytes # (Manual) 0.35 L (1.0-4.8) k/uL Monocytes # (Manual) 2.82 H (0-1.0) k/uL Eosinophils # (Manual) 5.98 H (0-0.7) k/uL Basophils # (Manual) 0.35 H (0-0.2) k/uL Myelocytes # (Manual) 0.70 H (0) k/uL ABG HCO3 (21-25) mmol/L ABG Total CO2 (19-24) mmol/L ABG O2 Saturation (94-97) % Chloride (98-107) mmol/L BUN (7-17) mg/dL Glucose (74-99) mg/dL POC Glucose (mg/dL) 128 H 128 H (70-110) mg/dL Calcium (8.4-10.2) mg/dL Total Protein (6.3-8.2) g/dL Albumin (3.5-5.0) g/dL 03/30/23 03/30/23 03/30/23 Range/Units 04:20 05:45 11:44 WBC (3.8-10.6) k/uL RBC (3.80-5.40) m/uL Hgb (11.4-16.0) gm/dL Neutrophils # (Manual) (1.3-7.7) k/uL Lymphocytes # (Manual) (1.0-4.8) k/uL Monocytes # (Manual) (0-1.0) k/uL Eosinophils # (Manual) (0-0.7) k/uL Basophils # (Manual) (0-0.2) k/uL Myelocytes # (Manual) (0) k/uL ABG HCO3 27 H (21-25) mmol/L ABG Total CO2 28 H (19-24) mmol/L ABG O2 Saturation 97.6 H (94-97) % Chloride 111 H (98-107) mmol/L BUN 21 H (7-17) mg/dL Glucose 118 H (74-99) mg/dL POC Glucose (mg/dL) 124 H (70-110) mg/dL Calcium 7.3 L (8.4-10.2) mg/dL Total Protein 4.2 L (6.3-8.2) g/dL Albumin 2.1 L (3.5-5.0) g/dL Microbiology - Last 24 Hours (Table) 03/29/23 10:40 Gram Stain - Preliminary Pleural Fluid 03/29/23 10:00 Gram Stain - Preliminary Bronchial Washings - Right Bronchial Washings Culture - Preliminary Assessment and Plan (1) Pneumonia Current Visit: Yes Status: Acute Priority: High Code(s): J18.9 - PNEUMONIA, UNSPECIFIED ORGANISM SNOMED Code(s): 292681828 Plan: 1patient presented to hospital with shortness of breath did have a cough productive sputum in addition to the anxiety and some mental status changes chest x-ray with right-sided effusion and consolidation concerning for pneumonia possible gram-negative as the patient has been in and out of hospital recently. 2initial blood and sputum cultures are so far negative 3patient did have a CT of the chest did show moderate size right pleural effusion with thick wall and pleural catheter in place a concern for possible empyema patient is status post drainage of the fluid had been sent for culture , patient also has a bronchoscopy completed and brought keloid sent for culture which is currently pending 4patient did have elevated white count and a sputum culture growing Dilia albicans concern for possible oropharyngeal candidiasis we will add Diflucan/Eraxis depending upon the drug interaction. 5patient to continue with vancomycin and cefepime while waiting for the bronchoscopy and pleural fluid culture to finalize Family at the bedside multiple question concern answered Dictation was produced using [employer] dictation software. please excuse any grammatical, word or spelling errors. Time with Patient: Greater than 30
[2023-03-30] MEDS ORDERED: LACTATED RINGERS 1,000 ML IV ONE (16:00)
--- NOTE | 2023-03-30 16:47 | P.PN ---
Subjective Progress Note Date: 03/30/23 Pt was was started on pressors overnight for hypotension and septic shock. BAL with GPCs on culture. Pt is on vancomycin and cefepime. General: intubated, sedated HEENT: normocephalic, atraumatic, no tracheal deviation Respiratory: symmetric chest rise, no cyanosis, ventilator dependent CVS: perfusing all extremities, no distal gangrene, no pitting edema GI: soft, ND : no SPT, no CVAT, crespo is present Neuro: sedated Hospital course: Patient is a very pleasant 82-year-old female with a past medical history of COPD with chronic hypoxic respiratory failure on 4 L O2 nasal cannula at all times, NON-small cell lung cancer in 2016 status post chemo and radiation currently in remission, chronic right pleural effusion with Pleurx catheter in place 2 years, hypertension, and hyperlipidemia. She presented to the hospital on 03/22/23 secondary to worsening shortness of breath. Upon arrival to the hospital patient underwent full evaluation. Chest x-ray was completed showing overall similar examination with background COPD changes and right pleural effusion and patchy consolidation, unable to rule out pneumonia. EKG was completed showing normal sinus rhythm at 66 bpm with no noted T-wave or ST abnormalities upon personal review and interpretation. CT head also completed negative for acute intercranial process showing nonspecific white matter changes. Labs completed and reviewed. CBC showing leukocytosis with WBC count of 15.8. Venous blood gas showing elevated patient was admitted under our [facility] with consultation to pulmonology and cardiothoracic surgery. Valproic acid level was obtained resulting slightly subtherapeutic at 44.1. Covid PCR negative. CRP elevated at 6.40. Patient was started on IV antibiotics with Zosyn and azithromycin. Pro-calcitonin negative at 0.09 and antibiotics discontinued at this time. On the morning of 03/24/23, cardiothoracic surgery drained 350 mL out of right lung from Pleurx catheter. Patient continued with worsening shortness of breath and was on 6 L O2 via nasal cannula with SpO2 of 86%. Patient's condition continued to further deteriorate. 03/25/23 repeat chest x-ray showing right lower lobe consolidation and small effusion stable with persistent prominence of the right hilum unchanged. 03/27/23 chest x-ray again repeated again showing stable lower lobe consolidation and pleural effusion unchanged from prior examination. Patient's condition worsening requiring placement on Venturi Mask at 15 L O2 and 50% FiO2. CT chest without c ontrast on completed showing concerns of moderate sized right pleural effusion with thick wall and pleural catheter in place raising concerns for empyema along with 2 loculated thick-walled collections in the right mid and upper lung also suspicious for possible empyema versus loculated pleural effusions, reticular opacities and consolidation throughout the right lung most prominent within the base consistent with pneumonia, and small left pleural effusion with associated atelectasis and moderate to severe COPD changes. Discussed CT findings with stock grader and called cardiothoracic surgery for drainage. Pleurx catheter drainage was sent to microbiology, which thus far has been negative. She was intubated on 03/28 and sent to the ICU. She underwent bronchoscopy on 03/29, which showed thick secretions in the right lung with BAL culture having GPCs on gram stain. She did develop hypotension from presumed septic shock and was started on levophed. Assessment and Plan of Care: Acute on chronic respiratory failure with hypoxia and hypercarbia Pneumonia of right lung COPD without exacerbation Chronic right pleural effusion with Pleurx catheter History of NON-small cell lung cancer status post chemo and radiation in 2016 currently in remission -Pulmonology following, discussed patient condition and plan of care with stock grader - sedation needs to be increased today due to agitation -ID note reviewed: eraxis added for coverage of saqib -Pt intubated in ICU, continue propofol gtt -Continue nebulized albuterol treatments 4 times daily scheduled and Duonebs every 2 hours as needed for SOB and/or wheezing -Continue Pulmicort and formoterol. -Steroids: Continue with solumedrol 40mg q12h -Antibiotics: vancomycin 1250 mg every 16 hours and cefepime 2 g every 8 hours. -We will follow up on repeat morning BMP and vancomycin troph to monitor for any signs of vancomycin associated renal toxicity. Hypertension Vital signs reviewed and stable. Patient to continue with atenolol 50 mg daily. Hypothyroidism Patient to continue daily medication regimen with levothyroxine 100 g daily. Hyperlipidemia Patient to continue with daily medication regimen with atorvastatin 20 mg nightly. Moderate protein calorie malnutrition -Patient to continue with Premier protein supplements 3 times daily between meals. -Dietitian following. Data reviewed: -Afebrile, 109/48, 97% on 80% FiO2 -WBC 29.2, Hgb 11.6, PLT 229; CO2 31, BUN 20 Imaging reviewed: -CT chest without contrast on completed showing concerns of moderate sized right pleural effusion with thick wall and pleural catheter in place raising concerns for empyema along with 2 loculated thick-walled collections in the right mid and upper lung also suspicious for possible empyema versus loculated pleural effusions, reticular opacities and consolidation throughout the right lung most prominent within the base consistent with pneumonia, and small left pleural effusion with associated atelectasis and moderate to severe COPD changes. -Bronchoscopy 03/29: There was copious amount of mucous plugs occupying the right mainstem bronchus. As such, therapeutic airway suctioning was done. Around 30 mL of copious respiratory secretions were aspirated from the right lung. CODE STATUS: DO NOT RESUSCITATE, patient NO to CPR and YES to intubation and mec hanical ventilation. DVT prophylaxis: Lovenox Objective - Vital Signs Vital signs: Vital Signs Temp 98.3 F 03/30/23 16:00 Pulse 75 03/30/23 16:17 Resp 20 03/30/23 16:00 BP 108/56 03/30/23 13:00 Pulse Ox 92 L 03/30/23 16:00 FiO2 50 03/30/23 15:45 Intake & Output 03/29/23 03/30/23 03/30/23 18:59 06:59 18:59 Intake Total 389.948 5859.897 2410.335 Output Total 685 323 320 Balance 6.022 4134.112 9412.335 Weight 66.678 kg 74 kg Intake: IV 500 0.9ns fluid bolus 500 Intake, IV Titration 116.475 0345.897 2260.335 Amount Cefepime 2 gm In Sodium 100 Chloride 0.9% 100 ml @ 25 mls/hr IVPB Q8HR [facility] Rx# :[id number] Lactated Ringers 1,000 ml 1000 @ 999 mls/hr IV .Q1H1M [facility] Rx#:[id number] Norepinephrine 8 mg In 75.051 46.856 Sodium Chloride 0.9% 250 ml @ 0.03 MCG/KG/MIN 3. 871 mls/hr IV .Q24H [facility] Rx#:[id number] Sodium Chloride 0.9% 1, 1000 800 000 ml @ 100 mls/hr IV . Q10H [facility] Rx#:[id number] Vancomycin 1,250 mg In 250 250 Sodium Chloride 0.9% 250 ml @ 125 mls/hr IVPB Q16H [facility] Rx#:[id number] propofoL 1,000 mg In 141.022 189.846 63.479 Empty Bag 1 bag @ 15 MCG/ KG/MIN 6.001 mls/hr IV . [id number] [facility] Rx#:[id number] Tube Feeding 50 110 120 Other 30 Output: Chest Tube Drainage 300 30 0 Pleural Catheter Right 300 30 0 Lower Anterior Chest Urine 385 293 320 Other: Voiding Method Indwelling Catheter Indwelling Catheter Indwelling Catheter # Bowel Movements 1 ABP, PAP, CO, CI - Last Documented Arterial Blood Pressure 114/52 - Labs CBC & Chem 7: 03/30/23 04:20 03/30/23 04:20 Labs: Abnormal Lab Results - Last 24 Hours (Table) 03/29/23 03/29/23 03/30/23 Range/Units 17:46 23:33 04:20 WBC 35.2 H (3.8-10.6) k/uL RBC 3.56 L (3.80-5.40) m/uL Hgb 10.9 L (11.4-16.0) gm/dL Neutrophils # (Manual) 25.30 H (1.3-7.7) k/uL Lymphocytes # (Manual) 0.35 L (1.0-4.8) k/uL Monocytes # (Manual) 2.82 H (0-1.0) k/uL Eosinophils # (Manual) 5.98 H (0-0.7) k/uL Basophils # (Manual) 0.35 H (0-0.2) k/uL Myelocytes # (Manual) 0.70 H (0) k/uL ABG HCO3 (21-25) mmol/L ABG Total CO2 (19-24) mmol/L ABG O2 Saturation (94-97) % Chloride (98-107) mmol/L BUN (7-17) mg/dL Glucose (74-99) mg/dL POC Glucose (mg/dL) 128 H 128 H (70-110) mg/dL Calcium (8.4-10.2) mg/dL Total Protein (6.3-8.2) g/dL Albumin (3.5-5.0) g/dL 03/30/23 03/30/23 03/30/23 Range/Units 04:20 05:45 11:44 WBC (3.8-10.6) k/uL RBC (3.80-5.40) m/uL Hgb (11.4-16.0) gm/dL Neutrophils # (Manual) (1.3-7.7) k/uL Lymphocytes # (Manual) (1.0-4.8) k/uL Monocytes # (Manual) (0-1.0) k/uL Eosinophils # (Manual) (0-0.7) k/uL Basophils # (Manual) (0-0.2) k/uL Myelocytes # (Manual) (0) k/uL ABG HCO3 27 H (21-25) mmol/L ABG Total CO2 28 H (19-24) mmol/L ABG O2 Saturation 97.6 H (94-97) % Chloride 111 H (98-107) mmol/L BUN 21 H (7-17) mg/dL Glucose 118 H (74-99) mg/dL POC Glucose (mg/dL) 124 H (70-110) mg/dL Calcium 7.3 L (8.4-10.2) mg/dL Total Protein 4.2 L (6.3-8.2) g/dL Albumin 2.1 L (3.5-5.0) g/dL Microbiology - Last 24 Hours (Table) 03/29/23 10:40 Gram Stain - Preliminary Pleural Fluid 03/29/23 10:00 Gram Stain - Preliminary Bronchial Washings - Right Bronchial Washings Culture - Preliminary
[2023-03-30 17:43] LABS: Glucose,Whole Blood 143 mg/dL (70-110)
[2023-03-30] MEDS: NOREPINEPHRINE 8 MG in SODIUM CHLORIDE 0.9% 250 ML IV SCH (17:44)
[2023-03-30] MEDS: FLUCONAZOLE IN NACL,ISO-OSM 100 MG in SALINE 1 50ML.BAG IVPB SCH (17:48)
[2023-03-30] MEDS ORDERED: VANCOMYCIN TROUGH DUE 1 EACH MISC MISCELLANE ONE (21:00)
[2023-03-30] MEDS: ASPIRIN 81 MG PO SCH (21:07)
[2023-03-30] MEDS: ATORVASTATIN 20 MG TAB PO SCH (21:07)
[2023-03-30] MEDS: MIRTAZAPINE 15 MG TAB PO SCH (21:07)
[2023-03-31 00:02] LABS: Glucose,Whole Blood 160 mg/dL (70-110)
[2023-03-31] MEDS: SODIUM CHLORIDE 0.9% 1,000 ML IV SCH ×3 (01:16→13:22)
[2023-03-31] MEDS ORDERED: VANCOMYCIN TROUGH DUE 1 EACH MISC MISCELLANE ONE (03:00)
[2023-03-31 03:37] LABS: ALT 14 U/L (4-34); AST 16 U/L (14-36); African American GFR (CKD) >90 (>60 ml/min/1.73 sqM); Albumin 2.2 g/dL (3.5-5.0); Alkaline Phosphatase 83 U/L (38-126); Anion Gap 2 mmol/L; Blood Urea Nitrogen 20 mg/dL (7-17); Calcium 7.4 mg/dL (8.4-10.2); Carbon Dioxide 24 mmol/L (22-30); Chloride 112 mmol/L (98-107); Glucose 142 mg/dL (74-99); Magnesium 2.2 mg/dL (1.6-2.3); Non-African American GFR(CKD) 87 (>60 ml/min/1.73 sqM); Potassium 4.2 mmol/L (3.5-5.1); Sodium 138 mmol/L (137-145); Total Bilirubin 0.2 mg/dL (0.2-1.3); Total Protein 4.5 g/dL (6.3-8.2)
[2023-03-31] MEDS: IPRATROPIUM-ALBUTEROL 3 ML NEB INHALATION SCH ×5 (03:39→20:57)
[2023-03-31 03:47] LABS: Basophils # (A) 0.1 k/uL (0-0.2); Basophils % (A) 1 %; Eosinophils # (A) 2.3 k/uL (0-0.7); Eosinophils % (A) 9 %; HCT 34.9 % (34.0-46.0); Hypochromasia Moderate; Lymphocytes # (A) 0.2 k/uL (1.0-4.8); Lymphocytes % (A) 1 %; MCH 29.7 pg (25.0-35.0); MCHC 31.4 g/dL (31.0-37.0); MCV 94.7 fL (80.0-100.0); Mean Platelet Volume 7.4; Monocytes # (A) 1.8 k/uL (0-1.0); Monocytes % (A) 7 %; Neutrophils # (A) 21.6 k/uL (1.3-7.7); Neutrophils % (A) 83 %; Platelet Count 192 k/uL (150-450); RBC 3.69 m/uL (3.80-5.40); RDW 13.8 % (11.5-15.5); WBC 26.1 k/uL (3.8-10.6)
[2023-03-31] MEDS: VANCOMYCIN 1,250 MG in SODIUM CHLORIDE 0.9% 250 ML IVPB SCH (04:05)
[2023-03-31 05:44] LABS: ABG Base Excess 0.5 mmol/L; ABG HCO3 26 mmol/L (21-25); ABG Oxygen Saturation 94.8 % (94-97); ABG PCO2 46 mmHg (35-45); ABG PH 7.36 (7.35-7.45); ABG PO2 76 mmHg (83-108); ABG TCO2 27 mmol/L (19-24); Allen Test Performed? Yes
--- NOTE | 2023-03-31 07:05 | XR ---
EXAMINATION TYPE: XR shoulder limited LT DATE OF EXAM: 03/31/2023 5:24 AM INDICATION: Patient age:Female; 82 years old; Reason for study: Abnormality; COMPARISON: None TECHNIQUE: The left shoulder was examined in AP, internally rotated and scapular Y projections. FINDINGS: No evidence of acute osseous pathology, joint dislocation, or soft tissue swelling. The remaining por tions of the visualized chest are unremarkable. Nasogastric tube partially visualized. Mild degenerat ion changes of the shoulder particularly acromioclavicular joint. IMPRESSION: 1. No acute osseous pathology. 2. Mild left shoulder osteoarthrosis.
[2023-03-31] MEDS: FORMOTEROL FUMARATE 20 MCG/2 ML NEBU INHALATION SCH ×2 (07:56→20:57)
[2023-03-31] MEDS: BUDESONIDE 1 MG/2 ML NEBU INHALATION SCH ×2 (07:56→20:57)
--- NOTE | 2023-03-31 08:33 | XR ---
EXAMINATION TYPE: XR chest 1V portable DATE OF EXAM: 03/31/2023 5:15 AM COMPARISON: Chest radiographs from 03/30/2023 TECHNIQUE: XR chest 1V portable Frontal view of the chest. CLINICAL INDICATION:Female, 82 years old with history of Tube placement; FINDINGS: Lungs/Pleura: Right thoracotomy tube with small right pleural effusion associated atelectasis. There is no evidence of left pleural effusion, focal consolidation, or pneumothorax. Pulmonary vascularity: Unremarkable. Heart/mediastinum: Cardiomediastinal silhouette is unremarkable. Musculoskeletal: No acute osseous pathology. Endotracheal tube is 5.5 cm from the jordan. Nasogastric tube terminates in the distal esophagus. Right thoracotomy tube is present. IMPRESSION: 1. Endotracheal tube in appropriate position. 2. Nasogastric tube with distal tip in the esophagus. Consider advancement of at least 12 cm for opt imal placement. 3. Right thoracotomy tube with out evidence of large pneumothorax. 4. Persistent right lower lung pleural effusion and airspace opacities.
[2023-03-31] MEDS: CEFEPIME 2 GM in SODIUM CHLORIDE 0.9% 100 ML IVPB SCH ×3 (09:45→23:50)
[2023-03-31] MEDS: ARIPiprazole 2 MG TAB PO SCH (09:46)
[2023-03-31] MEDS: CHLORHEXIDINE GLUCONATE 15 ML CUP MUCOUS MEM SCH ×2 (09:47→20:49)
[2023-03-31] MEDS: atenoloL 50 MG TAB PO SCH (09:47)
[2023-03-31] MEDS: DIVALPROEX 250 MG TABLET.DR PO SCH ×2 (09:48→20:50)
[2023-03-31] MEDS: guaiFENesin-DM 600/30MG 1 EACH TAB.ER.12H PO SCH ×2 (09:49→20:52)
[2023-03-31] MEDS: ENOXAPARIN 40 MG/0.4 ML SYRINGE SQ SCH (09:49)
[2023-03-31] MEDS: methylPREDNISolone SOD SUCCI 40 MG/ML 1 ML VIAL IV SCH ×2 (09:50→20:51)
[2023-03-31] MEDS: LEVOTHYROXINE 100 MCG TAB PO SCH (09:51)
[2023-03-31] MEDS: PANTOPRAZOLE 40 MG/10 ML VIAL IV SCH (09:51)
[2023-03-31] MEDS: SERTRALINE 50 MG TAB PO SCH (09:52)
[2023-03-31] MEDS: DEXMEDETOMIDINE/0.9% NACL(PMX) 400 MCG in EMPTY BAG 1 BAG IV SCH (10:53)
[2023-03-31] MEDS: NOREPINEPHRINE 8 MG in SODIUM CHLORIDE 0.9% 250 ML IV SCH (11:03)
--- NOTE | 2023-03-31 11:54 | P.PN ---
Subjective Progress Note Date: 03/31/23 Principal diagnosis: Acute on chronic hypoxic respiratory failure, multifactorial with a loculated right-sided pleural effusion and history of small cell lung cancer as well as COPD This is a pleasant 82-year-old female with a past medical history significant for COPD/emphysema, chronic hypoxemic respiratory failure on 3 L/m nasal cannula 24/02, left lung squamous cell carcinoma status post chemoradiation, recurrent right-sided pleural effusions with Pleurx catheter inserted December 2020. She also has history of hypertension, hyperlipidemia, hypothyroidism, atrial fibrillation, and right upper extremity DVT. If she was just discharged on 03/03/2023 following concerns regarding bloody fluid from her Pleurx catheter. She presented here to the emergency room yesterday with complaints of increasing anxiety and some altered mental status according to her . Computed t omography scan of the brain revealed no acute intracranial process. Her Pleurx catheter is drained every third day with about 300 ML's of fluid returned. Chest x-ray reveals similar presentation with background COPD changes and right pleural effusion with patchy consolidation. White count 15.8. Hemoglobin 14.2. Platelets 284. Sodium 142. Potassium 4.3. Bicarb 29. BUN 8. Creatinine 0.8. Glucose 113. C-reactive protein 6.4. Pro-calcitonin 0.09. Coronavirus not detected. She is seen today in consultation on the regular medical floor. She is awake and alert. Somewhat anxious. Maintaining O2 saturations in the 90s on 4 L/m per nasal cannula. Afebrile. Hemodynamically stable. A 2022, the patient remains intubated on a mechanical ventilator. Earlier this morning, the propofol dose was brought up to 50 mcg/kg/m. She is, comfortable, on a mechanical ventilator, currently on assist control mode at the rate of 20, tidal volume is 400, FiO2 is currently at 60% and the PT is at 10. PH of 7.4 with a pCO2 of 44 and pO2 of 103 and this was on FiO2 of 70%. Chest x-ray shows residual opacification of the right lung base. ET tube is in a good location. There is persistent infiltration of the right lung base. The patient has a Pleurx catheter which is essentially continuous suction and the total amount of output since yesterday was 300 mL. Bronchoscopy and bronchoalveolar lavage was done and the results are still pending for now. The patient is borderline hypotensive and she is requiring pressors. Norepinephrine is currently running at 0.07 mcg/kg/m. She was given fluid boluses yesterday and the net fluid balance is +1 L over the past 24 hours. White cell count is up to 35, hemoglobin is at 10.9 and a platelet count is 246. BUN is 21 with a creatinine of 0.6 and a sodium levels of 140. In terms of antibiotic coverage, the patient is currently on a combination of cefepime, vancomycin and Diflucan. I'm going to start on low-dose steroids give the patient 40 mg IV Solu-Medrol every 12 hours. We will hold diuretics for now. Enteral feeding was also started and the patient is currently on vital high-protein at rate of 60 mL an hour. Most recent urine output is in order of 45 mL an hour. IV fluids in the form of normal saline at rate of 100 mL an hour. Patient was on 03/31/2023, remains in the ICU, intubated and mechanically ventilated. She is on assist control rate of 2010 volume 400 FiO2 50% PEEP is 10, changed to 5. ABG showed a pO2 of 76 pCO2 46 pH of 7.36. On propofol at 50 Farhan Melvin per kilo per minute IV fluid 0.9 normal saline at 100 mL/h vital HPI 20 mL/h remains on multiple antibiotics including cefepime, fluconazole, and vancomycin. Her last bronchoscopy was on 03/29 cultures so far are nondiagnostic. Patient continues to have the Pleurx catheter in place had about 500 mL out of the Pleurx catheter in the last 12 hours. Cultures remain negative and cytology has been negative. Chest x-ray showed endotracheal tube in proper position nasogastric tube in the distal esophagus persistent right lower lobe opacities and pleural effusions suspected. Continues to have leukocytosis with WBC of 26.1 hemoglobin is 11 electrolytes are normal renal profile is also normal with a BUN of 20 creatinine 0.59. I am planning today to discontinue propofol, consider patient on Precedex and consider a trial of weaning with pressure support of 10 and CPAP Objective - Vital Signs Vital signs: Vital Signs Temp 98.8 F 03/31/23 04:00 Pulse 62 03/31/23 11:31 Resp 20 03/31/23 07:00 BP 107/59 03/31/23 07:00 Pulse Ox 95 03/31/23 07:00 FiO2 50 03/31/23 11:32 Intake & Output 03/30/23 03/31/23 03/31/23 18:59 06:59 18:59 Intake Total 2741.457 1542.033 225.734 Output Total 515 780 30 Balance 2226.457 762.033 195.734 Weight 74 kg Intake: Intake, IV Titration 2551.457 1312.033 205.734 Amount Cefepime 2 gm In Sodium 200 100 Chloride 0.9% 100 ml @ 25 mls/hr IVPB Q8HR [facility] Rx# :[id number] Lactated Ringers 1,000 ml 1000 @ 999 mls/hr IV .Q1H1M [facility] Rx#:[id number] Norepinephrine 8 mg In 101.690 34.021 Sodium Chloride 0.9% 250 ml @ 0.03 MCG/KG/MIN 3. 871 mls/hr IV .Q24H [facility] Rx#:[id number] Sodium Chloride 0.9% 1, 900 1000 100 000 ml @ 100 mls/hr IV . Q10H [facility] Rx#:[id number] Vancomycin 1,250 mg In 250 Sodium Chloride 0.9% 250 ml @ 125 mls/hr IVPB Q16H [facility] Rx#:[id number] propofoL 1,000 mg In 99.767 178.012 105.734 Empty Bag 1 bag @ 15 MCG/ KG/MIN 6.001 mls/hr IV . [id number] [facility] Rx#:[id number] Tube Feeding 160 200 20 Other 30 30 Output: Chest Tube Drainage 120 200 Pleural Catheter Right 120 200 Lower Anterior Chest Urine 395 580 30 Other: Voiding Method Indwelling Catheter Indwelling Catheter # Bowel Movements 1 ABP, PAP, CO, CI - Last Documented Arterial Blood Pressure 113/41 - Exam Physical Exam: Revealed 82-year-old female sedated, in no distress intubated and mechanically ventilated. Head: Atraumatic, normocephalic. Endotracheal tube and orogastric tube are intact HEENT:[Neck is supple.] [No neck masses.] [No thyromegaly.] [No JVD.] Chest: Diminished breath sounds and rhonchi at the right lung base. No wheezing. Right-sided Pleurx catheter is noted. Cardiac Exam: [Normal S1 and S2, no S3 gallop, no murmur.] Abdomen: [Soft, nontender, no megaly, no rebound, no guarding, normal bowel sounds.] Extremities: [No clubbing, no edema, no cyanosis. Good pulses bilaterally.] Neurological Exam: Could not assess, patient is sedated, on propofol. Psychiatric: Could not assess. Skin: No rashes - Labs CBC & Chem 7: 03/31/23 03:05 03/31/23 03:05 Labs: Abnormal Lab Results - Last 24 Hours (Table) 03/30/23 03/30/23 03/31/23 Range/Units 11:44 17:42 00:00 WBC (3.8-10.6) k/uL RBC (3.80-5.40) m/uL Hgb (11.4-16.0) gm/dL Neutrophils # (1.3-7.7) k/uL Lymphocytes # (1.0-4.8) k/uL Monocytes # (0-1.0) k/uL Eosinophils # (0-0.7) k/uL ABG pCO2 (35-45) mmHg ABG pO2 (83-108) mmHg ABG HCO3 (21-25) mmol/L ABG Total CO2 (19-24) mmol/L Chloride (98-107) mmol/L BUN (7-17) mg/dL Glucose (74-99) mg/dL POC Glucose (mg/dL) 124 H 143 H 160 H (70-110) mg/dL Calcium (8.4-10.2) mg/dL Total Protein (6.3-8.2) g/dL Albumin (3.5-5.0) g/dL 03/31/23 03/31/23 03/31/23 Range/Units 03:05 03:05 05:40 WBC 26.1 H (3.8-10.6) k/uL RBC 3.69 L (3.80-5.40) m/uL Hgb 11.0 L (11.4-16.0) gm/dL Neutrophils # 21.6 H (1.3-7.7) k/uL Lymphocytes # 0.2 L (1.0-4.8) k/uL Monocytes # 1.8 H (0-1.0) k/uL Eosinophils # 2.3 H (0-0.7) k/uL ABG pCO2 46 H (35-45) mmHg ABG pO2 76 L (83-108) mmHg ABG HCO3 26 H (21-25) mmol/L ABG Total CO2 27 H (19-24) mmol/L Chloride 112 H (98-107) mmol/L BUN 20 H (7-17) mg/dL Glucose 142 H (74-99) mg/dL POC Glucose (mg/dL) (70-110) mg/dL Calcium 7.4 L (8.4-10.2) mg/dL Total Protein 4.5 L (6.3-8.2) g/dL Albumin 2.2 L (3.5-5.0) g/dL Microbiology - Last 24 Hours (Table) 03/29/23 10:00 Gram Stain - Final Bronchial Washings - Right Bronchial Washings Culture - Final Dilia albicans 03/29/23 10:40 Gram Stain - Preliminary Pleural Fluid Body Fluid Culture - Preliminary Assessment and Plan Assessment: Impression: Acute on chronic hypoxic respiratory failure, multifactorial Right lower lobe pneumonia with parapneumonic effusion requiring Pleurx catheter placement Loculated right-sided pleural effusion Leukocytosis secondary to above Generalized anxiety disorder History of small cell lung cancer, no suspected distant metastasis. Cytology on pleural effusion in the past has been negative History of underlying COPD Dyslipidemia Hypothyroidism Remote history of right upper extremity DVT Recommendation: Continue ventilatory support, change PEEP from 10-5 Hold sedation and address a trial of bleeding on this patient utilizing a pressure support and CPAP For extreme agitation use Precedex to place propofol if necessary. Continue antibiotics Continue Pleurx catheter in place Continue Solu-Medrol and patient is now off Decadron Continue bronchodilators Continue nutritional support/enteral feeding Continue GI and DVT prophylaxis Continue Pleurx catheter attached to continuous suction Awaiting results of bronchoalveolar lavage done on the of this month Critical care time is over 30 minutes DO NOT RESUSCITATE/DO NOT INTUBATE CODE STATUS We will continue to follow Time with Patient: Greater than 30
[2023-03-31 12:08] LABS: Glucose,Whole Blood 115 mg/dL (70-110)
[2023-03-31 12:34] LABS: ABG Base Excess 0.3 mmol/L; ABG HCO3 25 mmol/L (21-25); ABG Oxygen Saturation 95.1 % (94-97); ABG PCO2 40 mmHg (35-45); ABG PH 7.41 (7.35-7.45); ABG PO2 76 mmHg (83-108); ABG TCO2 26 mmol/L (19-24); Allen Test Performed? Yes
[2023-03-31] MEDS: ALPRAZolam 0.5 MG TAB PO PRN ×2 (16:42→20:53)
--- NOTE | 2023-03-31 17:23 | P.PN ---
Subjective Progress Note Date: 03/31/23 Principal diagnosis: Pneumonia Patient is a 82-year-old female with a past medical history significant for hypertension hyperlipidemia osteoarthritis DVT COPD small cell lung cancer did have history of right-sided effusion status post thoracocentesis and Pleurx catheter placement presenting the hospital with increasing shortness of breath and concern for possible pneumonia. Patient did have a worsening respiratory status requiring transparency. Regarding debrided and also have a bronchoscopy done on 03/29/2023 On today's evaluation that is 03/31/2023, the patient remains to be afebrile , patient is currently on a 40% FiO2 that is less than yesterday, no significant purulent secretions through the ET, vomiting diarrhea or any other changes reported by the nursing staff. Patient white count is down to 26.1, creatinine is 0. 59 patient sputum culture showing Dilia albicans pleural fluid and bronchial washings so far pending Objective - Vital Signs Vital signs: Vital Signs Temp 98.8 F 03/31/23 08:00 Pulse 62 03/31/23 11:31 Resp 16 03/31/23 11:30 BP 103/56 03/31/23 11:30 Pulse Ox 96 03/31/23 11:30 FiO2 50 03/31/23 12:00 Intake & Output 03/30/23 03/31/23 03/31/23 18:59 06:59 18:59 Intake Total 2741.457 1542.033 772.642 Output Total 515 780 290 Balance 2226.457 762.033 482.642 Weight 74 kg Intake: IV 400 Cefepime 2 gm In Sodium 100 Chloride 0.9% 100 ml @ 25 mls/hr IVPB Q8HR [facility] Rx# :[id number] Sodium Chloride 0.9% 1, 300 000 ml @ 100 mls/hr IV . Q10H [facility] Rx#:[id number] Intake, IV Titration 2551.457 1312.033 312.642 Amount Cefepime 2 gm In Sodium 200 100 Chloride 0.9% 100 ml @ 25 mls/hr IVPB Q8HR [facility] Rx# :[id number] Dexmedetomidine/0.9% NaCl 6.908 (Pmx) 400 mcg In Empty Bag 1 bag @ 0.2 MCG/KG/HR 3.7 mls/hr IV .Q24H [facility] Rx#:[id number] Lactated Ringers 1,000 ml 1000 @ 999 mls/hr IV .Q1H1M [facility] Rx#:[id number] Norepinephrine 8 mg In 101.690 34.021 Sodium Chloride 0.9% 250 ml @ 0.03 MCG/KG/MIN 3. 871 mls/hr IV .Q24H [facility] Rx#:[id number] Sodium Chloride 0.9% 1, 900 1000 200 000 ml @ 100 mls/hr IV . Q10H [facility] Rx#:[id number] Vancomycin 1,250 mg In 250 Sodium Chloride 0.9% 250 ml @ 125 mls/hr IVPB Q16H [facility] Rx#:[id number] propofoL 1,000 mg In 99.767 178.012 105.734 Empty Bag 1 bag @ 15 MCG/ KG/MIN 6.001 mls/hr IV . [id number] [facility] Rx#:[id number] Tube Feeding 160 200 60 Other 30 30 Output: Chest Tube Drainage 120 200 Pleural Catheter Right 120 200 Lower Anterior Chest Urine 395 580 290 Other: Voiding Method Indwelling Catheter Indwelling Catheter # Bowel Movements 1 ABP, PAP, CO, CI - Last Documented Arterial Blood Pressure 134/59 - Exam GENERAL DESCRIPTION: Elderly female intubated on the vent RESPIRATORY SYSTEM: Unlabored breathing , decreased breath sounds at bases HEART: S1 S2 regular rate and rhythm ,no loud murmurs ABDOMEN: Soft , no tenderness EXTREMITIES: No edema feet - Labs CBC & Chem 7: 03/31/23 03:05 03/31/23 03:05 Labs: Abnormal Lab Results - Last 24 Hours (Table) 03/30/23 03/31/23 03/31/23 Range/Units 17:42 00:00 03:05 WBC 26.1 H (3.8-10.6) k/uL RBC 3.69 L (3.80-5.40) m/uL Hgb 11.0 L (11.4-16.0) gm/dL Neutrophils # 21.6 H (1.3-7.7) k/uL Lymphocytes # 0.2 L (1.0-4.8) k/uL Monocytes # 1.8 H (0-1.0) k/uL Eosinophils # 2.3 H (0-0.7) k/uL ABG pCO2 (35-45) mmHg ABG pO2 (83-108) mmHg ABG HCO3 (21-25) mmol/L ABG Total CO2 (19-24) mmol/L Chloride (98-107) mmol/L BUN (7-17) mg/dL Glucose (74-99) mg/dL POC Glucose (mg/dL) 143 H 160 H (70-110) mg/dL Calcium (8.4-10.2) mg/dL Total Protein (6.3-8.2) g/dL Albumin (3.5-5.0) g/dL 03/31/23 03/31/23 03/31/23 Range/Units 03:05 05:40 12:04 WBC (3.8-10.6) k/uL RBC (3.80-5.40) m/uL Hgb (11.4-16.0) gm/dL Neutrophils # (1.3-7.7) k/uL Lymphocytes # (1.0-4.8) k/uL Monocytes # (0-1.0) k/uL Eosinophils # (0-0.7) k/uL ABG pCO2 46 H (35-45) mmHg ABG pO2 76 L (83-108) mmHg ABG HCO3 26 H (21-25) mmol/L ABG Total CO2 27 H (19-24) mmol/L Chloride 112 H (98-107) mmol/L BUN 20 H (7-17) mg/dL Glucose 142 H (74-99) mg/dL POC Glucose (mg/dL) 115 H (70-110) mg/dL Calcium 7.4 L (8.4-10.2) mg/dL Total Protein 4.5 L (6.3-8.2) g/dL Albumin 2.2 L (3.5-5.0) g/dL Microbiology - Last 24 Hours (Table) 03/29/23 10:00 Gram Stain - Final Bronchial Washings - Right Bronchial Washings Culture - Final Dilia albicans 03/29/23 10:40 Gram Stain - Preliminary Pleural Fluid Body Fluid Culture - Preliminary Assessment and Plan (1) Pneumonia Current Visit: Yes Status: Acute Priority: High Code(s): J18.9 - PNE UMONIA, UNSPECIFIED ORGANISM SNOMED Code(s): 446365342 Plan: 1patient presented to hospital with shortness of breath did have a cough productive sputum in addition to the anxiety and some mental status changes chest x-ray with right-sided effusion and consolidation concerning for pneumonia possible gram-negative as the patient has been in and out of hospital recently. 2initial blood and sputum cultures are so far negative 3patient did have a CT of the chest did show moderate size right pleural effusion with thick wall and pleural catheter in place a concern for possible empyema patient is status post drainage of the fluid had been sent for culture , patient also has a bronchoscopy completed and brought keloid sent for culture which is currently pending 4patient did have elevated white count and a sputum culture growing Dilia albicans concern for possible oropharyngeal candidiasis, patient to continue with Diflucan and the white count seems to be trending down 5patient to continue with vancomycin and cefepime and monitor clinical course closely adjusting antibiotics further on the basis of culture Dictation was produced using [employer] dictation software. please excuse any grammatical, word or spelling errors. Time with Patient: Less than 30
[2023-03-31] MEDS: FLUCONAZOLE IN NACL,ISO-OSM 100 MG in SALINE 1 50ML.BAG IVPB SCH (17:51)
--- NOTE | 2023-03-31 17:51 | P.PN ---
Subjective Progress Note Date: 03/31/23 (seen at 0930) Patient is an 82-year-old female with a history of COPD with chronic hypoxic respiratory failure on 4 L nasal cannula, small cell lung cancer in 2016 treated with chemo/radiation, chronic right pleural effusion with pleurx cath in for the last 2 years, hypertension, and dyslipidemia who presented with complaints of shortness of breath. Of note she was hospitalized here from 02/26/23 through 03/03/23 for COPD exacerbation and right pleural effusion where she was evaluated by CT surgery who did not recommend any intervention at this time. On arrival to the emergency department here she was satting 82% on 3 L nasal cannula. Initial laboratory analysis was remarkable for white blood cell count 15.8, sodium 136, chloride 96, carbon dioxide 37, glucose 105. VBG showed pH is 7.34 pCO2 of 68 and a bicarb of dirty 6. Valproic acid level was 44.1. Lactic acid was normal. Pulmonary and ID we consulted and procal was negative. Her abx were discontinued. Pulm suggested hospice consult however the patient declined to sign-on to hospice. The patient was asking to speak with cardiothoracic surgery. She was seen by infectious disease who recommended to continue Zosyn. She was seen by cardiothoracic surgery. They decided not recommended to help pleurodesis. Despite maximal medical therapy she continued to struggle with shortness of breath. By 03/29 she was requiring 50% Ventimask and satting between 89-90%. She was having difficulty with her speech. Sputum culture was positive for Dilia. Initially patient was DO NOT RESUSCITATE however after discussion with pulmonary she agreed to being intubated she was subsequently intubated on 03/29. She underwent broch with bronchial lavage on 03/29 which demonstrated mucous plugging. Patient seen and examined at bedside. She is sedated on vent and intermittently following commands. No acute events per nursing internet sales associate at bedside. Vital signs reviewed General: nontoxic, no distress, appears at stated age Cardiovascular: S1S2 reg, no murmur, positive posterior tibial pulse bilateral, Lungs: Course bs bilateral, no rhonchi, no rales , no accessory muscle use Abdominal: soft, nontender to palpation, no guarding, no appreciable organomegaly Ext: no gross muscle atrophy, no edema b/l lower extremities, no contractures Neuro: breathing over the vent, moving all 4 extremities independently. Psych: sedated on vent, intermittently following commands Assessment/Plan: Right-sided PNA, Possible gram negative COPD without exacerbation Acute on chronic hypoxic respiratory failure Debility Moderate protein calorie malnutrition Septic shock requiring vasopressors - intubated on propofol - Pulm note reviewed from 03/30: Wean FiO2 to 50%, continue with pressors, await cultures -Infectious disease note reviewed from 03/30: Add fluconazole, continue with Vanco and cefepime - en levophed as able -Continue nebulized albuterol treatments 4 times daily scheduled and Duonebs every 2 hours as needed for SOB and/or wheezing -Continue Pulmicort and formoterol. -Steroids: Continue with solumedrol 40mg q12h -Antibiotics: vancomycin- monitor Cr and vanco trough for toxicity - Fluconazole 100 mg IVPB daily - cytology from last month was negtive for malignancy - Blood cultures negative - Sputum cultures with dilia - DuoNeb's every 4 hours and when necessary, Pulmicort 1 mg twice a day, formoterol 20 mcg BID Chronic: HTN HLD Hypothyroidism Hx of NON-Small cell lung cancer status post chemo and radiation in 2016, in remission Imaging: Chest x-ray on 03/31/23 is reviewed by myself shows lines and tubes in appr opriate position with continued right sided lower lobe opacification with pleural effusion Shoulder x-ray: No osseous pathology, mild left shoulder osteoarthritis Data Review: Vitals reviewed and patient afebrile last 24 hours, pulse 70, respirations 20, blood pressure 107/59, O2 sat 95% on 50% spent Labs reviewed and remarkable for White blood cell count 26.1 (down from 35.2 yesterday), chloride 112, BUN 20, vancomycin trough 13.9 DVT prophylaxis: Lovenox Anticipated discharge date: Pending clinical course Anticipated discharge place: Pending clinical course This dictation was prepared using [employer] voice recognition software. Though every attempt is made to correct errors during dictation some may still exist. Objective - Vital Signs Vital signs: Vital Signs Temp 98.8 F 03/31/23 04:00 Pulse 66 03/31/23 08:07 Resp 20 03/31/23 07:00 BP 107/59 03/31/23 07:00 Pulse Ox 95 03/31/23 07:00 FiO2 50 03/31/23 07:53 Intake & Output 03/30/23 03/31/23 03/31/23 18:59 06:59 18:59 Intake Total 2741.457 1542.033 120 Output Total 515 780 30 Balance 2226.457 762.033 90 Intake: Intake, IV Titration 2551.457 1312.033 100 Amount Cefepime 2 gm In Sodium 200 100 Chloride 0.9% 100 ml @ 25 mls/hr IVPB Q8HR [facility] Rx# :[id number] Lactated Ringers 1,000 ml 1000 @ 999 mls/hr IV .Q1H1M [facility] Rx#:[id number] Norepinephrine 8 mg In 101.690 34.021 Sodium Chloride 0.9% 250 ml @ 0.03 MCG/KG/MIN 3. 871 mls/hr IV .Q24H [facility] Rx#:[id number] Sodium Chloride 0.9% 1, 900 1000 100 000 ml @ 100 mls/hr IV . Q10H [facility] Rx#:[id number] Vancomycin 1,250 mg In 250 Sodium Chloride 0.9% 250 ml @ 125 mls/hr IVPB Q16H [facility] Rx#:[id number] propofoL 1,000 mg In 99.767 178.012 Empty Bag 1 bag @ 15 MCG/ KG/MIN 6.001 mls/hr IV . [id number] [facility] Rx#:[id number] Tube Feeding 160 200 20 Other 30 30 Output: Chest Tube Drainage 120 200 Pleural Catheter Right 120 200 Lower Anterior Chest Urine 395 580 30 Other: Voiding Method Indwelling Catheter Indwelling Catheter # Bowel Movements 1 ABP, PAP, CO, CI - Last Documented Arterial Blood Pressure 113/41 - Labs CBC & Chem 7: 03/31/23 03:05 03/31/23 03:05 Labs: Abnormal Lab Results - Last 24 Hours (Table) 03/30/23 03/30/23 03/31/23 Range/Units 11:44 17:42 00:00 WBC (3.8-10.6) k/uL RBC (3.80-5.40) m/uL Hgb (11.4-16.0) gm/dL Neutrophils # (1.3-7.7) k/uL Lymphocytes # (1.0-4.8) k/uL Monocytes # (0-1.0) k/uL Eosinophils # (0-0.7) k/uL ABG pCO2 (35-45) mmHg ABG pO2 (83-108) mmHg ABG HCO3 (21-25) mmol/L ABG Total CO2 (19-24) mmol/L Chloride (98-107) mmol/L BUN (7-17) mg/dL Glucose (74-99) mg/dL POC Glucose (mg/dL) 124 H 143 H 160 H (70-110) mg/dL Calcium (8.4-10.2) mg/dL Total Protein (6.3-8.2) g/dL Albumin (3.5-5.0) g/dL 03/31/23 03/31/23 03/31/23 Range/Units 03:05 03:05 05:40 WBC 26.1 H (3.8-10.6) k/uL RBC 3.69 L (3.80-5.40) m/uL Hgb 11.0 L (11.4-16.0) gm/dL Neutrophils # 21.6 H (1.3-7.7) k/uL Lymphocytes # 0.2 L (1.0-4.8) k/uL Monocytes # 1.8 H (0-1.0) k/uL Eosinophils # 2.3 H (0-0.7) k/uL ABG pCO2 46 H (35-45) mmHg ABG pO2 76 L (83-108) mmHg ABG HCO3 26 H (21-25) mmol/L ABG Total CO2 27 H (19-24) mmol/L Chloride 112 H (98-107) mmol/L BUN 20 H (7-17) mg/dL Glucose 142 H (74-99) mg/dL POC Glucose (mg/dL) (70-110) mg/dL Calcium 7.4 L (8.4-10.2) mg/dL Total Protein 4.5 L (6.3-8.2) g/dL Albumin 2.2 L (3.5-5.0) g/dL Microbiology - Last 24 Hours (Table) 03/29/23 10:40 Gram Stain - Preliminary Pleural Fluid Body Fluid Culture - Preliminary 03/29/23 10:00 Gram Stain - Preliminary Bronchial Washings - Right Bronchial Washings Culture - Preliminary
[2023-03-31 18:04] LABS: Glucose,Whole Blood 110 mg/dL (70-110)
[2023-03-31] MEDS: VANCOMYCIN 1,500 MG in SODIUM CHLORIDE 0.9% 500 ML 500 ML IVPB SCH (20:48)
[2023-03-31] MEDS: ATORVASTATIN 20 MG TAB PO SCH (20:49)
[2023-03-31] MEDS: ASPIRIN 81 MG PO SCH (20:49)
[2023-03-31] MEDS: MIRTAZAPINE 15 MG TAB PO SCH (20:51)
[2023-03-31 23:39] LABS: Glucose,Whole Blood 99 mg/dL (70-110)
[2023-04-01] MEDS: IPRATROPIUM-ALBUTEROL 3 ML NEB INHALATION SCH ×7 (00:29→23:20)
[2023-04-01] MEDS: SODIUM CHLORIDE 0.9% 1,000 ML IV SCH ×3 (01:51→16:19)
[2023-04-01] MEDS: MELATONIN 3 MG TABLET PO PRN (02:58)
[2023-04-01 05:24] LABS: Glucose,Whole Blood 93 mg/dL (70-110)
[2023-04-01 05:40] LABS: HGB 11.4 gm/dL (11.4-16.0); Hypochromasia Marked; MCH 30.1 pg (25.0-35.0); MCHC 31.5 g/dL (31.0-37.0); MCV 95.4 fL (80.0-100.0); Mean Platelet Volume 7.7; Platelet Count 181 k/uL (150-450); RBC 3.77 m/uL (3.80-5.40); RDW 13.7 % (11.5-15.5)
[2023-04-01 05:42] LABS: African American GFR (CKD) >90 (>60 ml/min/1.73 sqM); Anion Gap 4 mmol/L; Blood Urea Nitrogen 24 mg/dL (7-17); Calcium 7.6 mg/dL (8.4-10.2); Carbon Dioxide 22 mmol/L (22-30); Chloride 114 mmol/L (98-107); Glucose 97 mg/dL (74-99); Non-African American GFR(CKD) 89 (>60 ml/min/1.73 sqM); Sodium 140 mmol/L (137-145)
[2023-04-01 06:14] LABS: Magnesium 2.2 mg/dL (1.6-2.3); Phosphorus 3.5 mg/dL (2.5-4.5); Potassium 4.6 mmol/L (3.5-5.1)
[2023-04-01] MEDS: FORMOTEROL FUMARATE 20 MCG/2 ML NEBU INHALATION SCH ×2 (07:30→19:41)
[2023-04-01] MEDS: BUDESONIDE 1 MG/2 ML NEBU INHALATION SCH ×2 (07:30→19:41)
[2023-04-01] MEDS: PANTOPRAZOLE 40 MG/10 ML VIAL IV SCH (08:12)
[2023-04-01] MEDS: ENOXAPARIN 40 MG/0.4 ML SYRINGE SQ SCH (08:12)
[2023-04-01] MEDS: CEFEPIME 2 GM in SODIUM CHLORIDE 0.9% 100 ML IVPB SCH ×3 (08:12→23:38)
[2023-04-01] MEDS: methylPREDNISolone SOD SUCCI 40 MG/ML 1 ML VIAL IV SCH ×2 (08:20→20:58)
--- NOTE | 2023-04-01 08:29 | XR ---
EXAMINATION TYPE: XR chest 1V portable DATE OF EXAM: 04/01/2023 COMPARISON: 03/31/2023 HISTORY: Shortness of breath TECHNIQUE: Single frontal view of the chest is obtained. FINDINGS: A bilateral consolidation. ET and NG tube been removed and there is a large area of massli ke density right. No pneumothorax. Curvature of the spine with degenerative changes. Suggestion of a chest tube overlying the right thorax. Underlying COPD. IMPRESSION: 1. Bilateral consolidation pleural effusion progressed from prior exam. Masslike area of consolidatio n neoplasm).
[2023-04-01] MEDS: CHLORHEXIDINE GLUCONATE 15 ML CUP MUCOUS MEM SCH ×2 (08:34→20:56)
[2023-04-01] MEDS ORDERED: FUROSEMIDE 10 MG/ML 4 ML VIAL IV STA (09:15)
[2023-04-01] MEDS: NOREPINEPHRINE 8 MG in SODIUM CHLORIDE 0.9% 250 ML IV SCH (11:15)
[2023-04-01] MEDS: DEXMEDETOMIDINE/0.9% NACL(PMX) 400 MCG in EMPTY BAG 1 BAG IV SCH (11:15)
[2023-04-01] MEDS: ARIPiprazole 2 MG TAB PO SCH (11:17)
[2023-04-01] MEDS: DIVALPROEX 250 MG TABLET.DR PO SCH ×2 (11:17→20:58)
[2023-04-01] MEDS: atenoloL 50 MG TAB PO SCH (11:17)
[2023-04-01] MEDS: LEVOTHYROXINE 100 MCG TAB PO SCH (11:18)
[2023-04-01] MEDS: guaiFENesin-DM 600/30MG 1 EACH TAB.ER.12H PO SCH ×2 (11:18→20:58)
[2023-04-01] MEDS: SERTRALINE 50 MG TAB PO SCH (11:18)
--- NOTE | 2023-04-01 11:40 | P.PN ---
Subjective Progress Note Date: 04/01/23 Principal diagnosis: Acute on chronic hypoxic respiratory failure, multifactorial with a loculated right-sided pleural effusion and history of small cell lung cancer as well as COPD This is a pleasant 82-year-old female with a past medical history significant for COPD/emphysema, chronic hypoxemic respiratory failure on 3 L/m nasal cannula 24/02, left lung squamous cell carcinoma status post chemoradiation, recurrent right-sided pleural effusions with Pleurx catheter inserted December 2020. She also has history of hypertension, hyperlipidemia, hypothyroidism, atrial fibrillation, and right upper extremity DVT. If she was just discharged on 03/03/2023 following concerns regarding bloody fluid from her Pleurx catheter. She presented here to the emergency room yesterday with complaints of increasing anxiety and some altered mental status according to her . Computed t omography scan of the brain revealed no acute intracranial process. Her Pleurx catheter is drained every third day with about 300 ML's of fluid returned. Chest x-ray reveals similar presentation with background COPD changes and right pleural effusion with patchy consolidation. White count 15.8. Hemoglobin 14.2. Platelets 284. Sodium 142. Potassium 4.3. Bicarb 29. BUN 8. Creatinine 0.8. Glucose 113. C-reactive protein 6.4. Pro-calcitonin 0.09. Coronavirus not detected. She is seen today in consultation on the regular medical floor. She is awake and alert. Somewhat anxious. Maintaining O2 saturations in the 90s on 4 L/m per nasal cannula. Afebrile. Hemodynamically stable. A 2022, the patient remains intubated on a mechanical ventilator. Earlier this morning, the propofol dose was brought up to 50 mcg/kg/m. She is, comfortable, on a mechanical ventilator, currently on assist control mode at the rate of 20, tidal volume is 400, FiO2 is currently at 60% and the PT is at 10. PH of 7.4 with a pCO2 of 44 and pO2 of 103 and this was on FiO2 of 70%. Chest x-ray shows residual opacification of the right lung base. ET tube is in a good location. There is persistent infiltration of the right lung base. The patient has a Pleurx catheter which is essentially continuous suction and the total amount of output since yesterday was 300 mL. Bronchoscopy and bronchoalveolar lavage was done and the results are still pending for now. The patient is borderline hypotensive and she is requiring pressors. Norepinephrine is currently running at 0.07 mcg/kg/m. She was given fluid boluses yesterday and the net fluid balance is +1 L over the past 24 hours. White cell count is up to 35, hemoglobin is at 10.9 and a platelet count is 246. BUN is 21 with a creatinine of 0.6 and a sodium levels of 140. In terms of antibiotic coverage, the patient is currently on a combination of cefepime, vancomycin and Diflucan. I'm going to start on low-dose steroids give the patient 40 mg IV Solu-Medrol every 12 hours. We will hold diuretics for now. Enteral feeding was also started and the patient is currently on vital high-protein at rate of 60 mL an hour. Most recent urine output is in order of 45 mL an hour. IV fluids in the form of normal saline at rate of 100 mL an hour. Patient was on 03/31/2023, remains in the ICU, intubated and mechanically ventilated. She is on assist control rate of 2010 volume 400 FiO2 50% PEEP is 10, changed to 5. ABG showed a pO2 of 76 pCO2 46 pH of 7.36. On propofol at 50 Farhan Melvin per kilo per minute IV fluid 0.9 normal saline at 100 mL/h vital HPI 20 mL/h remains on multiple antibiotics including cefepime, fluconazole, and vancomycin. Her last bronchoscopy was on 03/29 cultures so far are nondiagnostic. Patient continues to have the Pleurx catheter in place had about 500 mL out of the Pleurx catheter in the last 12 hours. Cultures remain negative and cytology has been negative. Chest x-ray showed endotracheal tube in proper position nasogastric tube in the distal esophagus persistent right lower lobe opacities and pleural effusions suspected. Continues to have leukocytosis with WBC of 26.1 hemoglobin is 11 electrolytes are normal renal profile is also normal with a BUN of 20 creatinine 0.59. I am planning today to discontinue propofol, consider patient on Precedex and consider a trial of weaning with pressure support of 10 and CPAP Patient was reevaluated today on 04/01/2023, patient remains in the ICU, she was extubated yesterday, however her FiO2 requirement has gone up since extubation patient is now on an airvo at 90% FiO2 and 60 L flow. Chest x-ray continues to show significant airspace disease involving the right lung, and continues to have the Pleurx catheter in place, drained about 100 mL overnight. Remains on antibiotics in the form of cefepime and vancomycin. Today I recommended another dose of Lasix 40 mg IV push. On the chest x-ray, there is also a questionable mass in the right hilar area. Cytology from her recent bronchoscopy and lavage is pending. CODE STATUS was approached again with the patient and the issue of reintubation, patient clearly stated to me that she would not want to go back on mechanical ventilation no matter what. Family will be updated by the nurse regarding her wishes and the fact she does not want to be reintubated. At any rate we plan to continue the antibiotics, will aggressively diurese the patient, and will continue to monitor in the ICU. WBC count today is elevated at 34.0 hemoglobin 11.4 electrodes are normal renal profile is normal. Cultures from the bronchial washing showed mostly Dilia albicans. Pleural effusion cultures have been negative Objective - Vital Signs Vital signs: Vital Signs Temp 97.4 F L 04/01/23 08:00 Pulse 76 04/01/23 11:17 Resp 21 04/01/23 11:00 BP 129/66 04/01/23 11:00 Pulse Ox 91 L 04/01/23 11:00 FiO2 95 04/01/23 11:12 Intake & Output 03/31/23 04/01/23 04/01/23 18:59 06:59 18:59 Intake Total 2225.510 4865 320 Output Total 750 795 832 Balance 056.308 6407 -512 Weight 74 kg 81 kg Intake: IV 1100 1900 320 Cefepime 2 gm In Sodium 100 100 100 Chloride 0.9% 100 ml @ 25 mls/hr IVPB Q8HR [facility] Rx# :[id number] Sodium Chloride 0.9% 1, 1000 1300 220 000 ml @ 100 mls/hr IV . Q10H [facility] Rx#:[id number] Vancomycin 1,500 mg In 500 Sodium Chloride 0.9% 500 ml 500 ml @ 167 mls/hr IVPB Q16H [facility] Rx#: [id number] Intake, IV Titration 320.042 Amount Dexmedetomidine/0.9% NaCl 14.308 (Pmx) 400 mcg In Empty Bag 1 bag @ 0.2 MCG/KG/HR 3.7 mls/hr IV .Q24H [facility] Rx#:[id number] Sodium Chloride 0.9% 1, 200 000 ml @ 100 mls/hr IV . Q10H [facility] Rx#:[id number] propofoL 1,000 mg In 105.734 Empty Bag 1 bag @ 15 MCG/ KG/MIN 6.001 mls/hr IV . [id number] [facility] Rx#:[id number] Tube Feeding 60 Output: Chest Tube Drainage 40 100 0 Pleural Catheter Right 40 100 0 Lower Anterior Chest Urine 710 695 832 Other: Voiding Method Indwelling Catheter Indwelling Catheter Indwelling Catheter ABP, PAP, CO, CI - Last Documented Arterial Blood Pressure 140/71 - Exam Physical Exam: Revealed 82-year-old female sedated, in no distress on airvo Head: Atraumatic, normocephalic. HEENT:[Neck is supple.] [No neck masses.] [No thyromegaly.] [No JVD.] Chest: Diminished breath sounds and rhonchi at the right lung base. No wheezing. Right-sided Pleurx catheter is noted. Cardiac Exam: [Normal S1 and S2, no S3 gallop, no murmur.] Abdomen: [Soft, nontender, no megaly, no rebound, no guarding, normal bowel sounds.] Extremities: [No clubbing, 1+ bipedal edema, no cyanosis. Good pulses bilaterally.] Neurological Exam: Awake, alert oriented 3, no gross focal deficit Psychiatric: Normal mood, flat affect, normal mental status examination Skin: No rashes - Labs CBC & Chem 7: 04/01/23 05:25 04/01/23 05:25 Labs: Abnormal Lab Results - Last 24 Hours (Table) 03/31/23 03/31/23 04/01/23 Range/Units 12:04 12:26 05:25 WBC 34.0 H (3.8-10.6) k/uL RBC 3.77 L (3.80-5.40) m/uL ABG pO2 76 L (83-108) mmHg ABG Total CO2 26 H (19-24) mmol/L Chloride (98-107) mmol/L BUN (7-17) mg/dL POC Glucose (mg/dL) 115 H (70-110) mg/dL Calcium (8.4-10.2) mg/dL 04/01/23 Range/Units 05:25 WBC (3.8-10.6) k/uL RBC (3.80-5.40) m/uL ABG pO2 (83-108) mmHg ABG Total CO2 (19-24) mmol/L Chloride 114 H (98-107) mmol/L BUN 24 H (7-17) mg/dL POC Glucose (mg/dL) (70-110) mg/dL Calcium 7.6 L (8.4-10.2) mg/dL Microbiology - Last 24 Hours (Table) 03/29/23 10:40 Gram Stain - Preliminary Pleural Fluid Body Fluid Culture - Preliminary 03/29/23 10:00 Gram Stain - Final Bronchial Washings - Right Bronchial Washings Culture - Final Dilia albicans Assessment and Plan Assessment: Impression: Acute on chronic hypoxic respiratory failure, multifactorial Right lower lobe pneumonia with parapneumonic effusion requiring Pleurx catheter placement Loculated right-sided pleural effusion Leukocytosis secondary to above Generalized anxiety disorder History of small cell lung cancer, no suspected distant metastasis. Cytology on pleural effusion in the past has been negative History of underlying COPD Dyslipidemia Hypothyroidism Remote history of right upper extremity DVT Patient was extubated on 03/31/2023, remains extubated. Recommendation: Continue to monitor in the ICU CODE STATUS was discussed again with the patient, and the patient wishes to be DO NOT RESUSCITATE and DO NOT INTUBATE. Continue antibiotics Continue Pleurx catheter in place Continue Solu-Medrol and patient is now off Decadron Continue bronchodilators Advanced diet as tolerated Continue GI and DVT prophylaxis Continue Pleurx catheter attached to continuous suction We will continue to follow Time with Patient: Less than 30
[2023-04-01] MEDS: VANCOMYCIN 1,500 MG in SODIUM CHLORIDE 0.9% 500 ML 500 ML IVPB SCH (11:54)
--- NOTE | 2023-04-01 13:36 | P.PN ---
Subjective Progress Note Date: 04/01/23 Patient is an 82-year-old female with a history of COPD with chronic hypoxic respiratory failure on 4 L nasal cannula, small cell lung cancer in 2016 treated with chemo/radiation, chronic right pleural effusion with pleurx cath in for the last 2 years, hypertension, and dyslipidemia who presented with complaints of shortness of breath. Of note she was hospitalized here from 02/26/23 through 03/03/23 for COPD exacerbation and right pleural effusion where she was evaluated by CT surgery who did not recommend any intervention at this time. On arrival to the emergency department here she was satting 82% on 3 L nasal cannula. Initial laboratory analysis was remarkable for white blood cell count 15.8, sodium 136, chloride 96, carbon dioxide 37, glucose 105. VBG showed pH is 7.34 pCO2 of 68 and a bicarb of dirty 6. Valproic acid level was 44.1. Lactic acid was normal. Pulmonary and ID we consulted and procal was negative. Her abx were discontinued. Pulm suggested hospice consult however the patient declined to sign-on to hospice. The patient was asking to speak with cardiothoracic surgery. She was seen by infectious disease who recommended to continue Zosyn. She was seen by cardiothoracic surgery. They decided not recommended to help pleurodesis. Despite maximal medical therapy she continued to struggle with shortness of breath. By 03/29 she was requiring 50% Ventimask and satting between 89-90%. She was having difficulty with her speech. Sputum culture was positive for Dilia. Initially patient was DO NOT RESUSCITATE however after discussion with pulmonary she agreed to being intubated she was subsequently intubated on 03/29. She underwent broch with bronchial lavage on 03/29 which demonstrated mucous plugging. She was extubated on 03/31 and did require high flow nasal cannula. Patient seen and examined at bedside. She states she never wants to be in tubated again. She continues to feel frustrated about not being able to breathe. She denies any chest discomfort or nausea. Vital signs reviewed General: nontoxic, no distress, appears at stated age Cardiovascular: S1S2 reg, no murmur, positive posterior tibial pulse bilateral, Lungs: Course bs bilateral, no rhonchi, no rales , no accessory muscle use Abdominal: soft, nontender to palpation, no guarding, no appreciable organomegaly Ext: no gross muscle atrophy, no edema b/l lower extremities, no contractures Neuro: CN II-XII grossly intact, moving all 4 extremities independently. Psych: Awake, alert, appears anxious Assessment/Plan: Right-sided PNA, Possible gram negative COPD without exacerbation Acute on chronic hypoxic respiratory failure Debility Moderate protein calorie malnutrition Septic shock requiring vasopressors -Pulmonary note reviewed from 04/01: DO NOT RESUSCITATE and DO NOT INTUBATE, continue antibiotics, continue with Pleurx catheter to chest tube -Infectious disease note reviewed: Continue with Vanco and cefepime. - intubated on propofol -off levo on 03/31 -Continue nebulized albuterol treatments 4 times daily scheduled and Duonebs every 2 hours as needed for SOB and/or wheezing -Continue Pulmicort and formoterol. -Steroids: Continue with solumedrol 40mg q12h -Antibiotics: vancomycin- monitor Cr and vanco trough for toxicity, Cefepime 2 grams BID - Fluconazole 100 mg IVPB daily - cytology from last month was negative for malignancy - Blood cultures negative - Sputum cultures with dilia Chronic: HTN HLD Hypothyroidism Hx of NON-Small cell lung cancer status post chemo and radiation in 2016, [place] Imaging: None new Data Review: Vitals reviewed temperature 97.4, pulse 80, respirations 23, blood pressure 120 /60, O2 sat 89% on 60 L high flow Labs reviewed and remarkable for white blood cell 34, chloride 14, BUN 24, glucose 97 DVT prophylaxis: Lovenox Anticipated discharge date: Pending clinical course Anticipated discharge place: Pending clinical course This dictation was prepared using [email or web address] voice recognition software. Though every attempt is made to correct errors during dictation some may still exist. Objective - Vital Signs Vital signs: Vital Signs Temp 97.5 F L 04/01/23 12:00 Pulse 75 04/01/23 12:00 Resp 24 04/01/23 12:00 BP 128/59 04/01/23 12:00 Pulse Ox 93 L 04/01/23 12:00 FiO2 95 04/01/23 12:00 Intake & Output 03/31/23 04/01/23 04/01/23 18:59 06:59 18:59 Intake Total 0272.916 9283 830 Output Total 476 234 7889 Balance 887.864 6198 -727 Weight 74 kg 81 kg Intake: IV 1100 1900 830 Cefepime 2 gm In Sodium 100 100 100 Chloride 0.9% 100 ml @ 25 mls/hr IVPB Q8HR [facility] Rx# :[id number] Sodium Chloride 0.9% 1, 1000 1300 230 000 ml @ 100 mls/hr IV . Q10H [facility] Rx#:[id number] Vancomycin 1,500 mg In 500 500 Sodium Chloride 0.9% 500 ml 500 ml @ 167 mls/hr IVPB Q16H [facility] Rx#: [id number] Intake, IV Titration 320.042 Amount Dexmedetomidine/0.9% NaCl 14.308 (Pmx) 400 mcg In Empty Bag 1 bag @ 0.2 MCG/KG/HR 3.7 mls/hr IV .Q24H [facility] Rx#:[id number] Sodium Chloride 0.9% 1, 200 000 ml @ 100 mls/hr IV . Q10H [facility] Rx#:[id number] propofoL 1,000 mg In 105.734 Empty Bag 1 bag @ 15 MCG/ KG/MIN 6.001 mls/hr IV . [id number] [facility] Rx#:[id number] Tube Feeding 60 Output: Chest Tube Drainage 40 100 0 Pleural Catheter Right 40 100 0 Lower Anterior Chest Urine 583 395 1909 Other: Voiding Method Indwelling Catheter Indwelling Catheter Indwelling Catheter ABP, PAP, CO, CI - Last Documented Arterial Blood Pressure 129/63 - Labs CBC & Chem 7: 04/01/23 05:25 04/01/23 05:25 Labs: Abnormal Lab Results - Last 24 Hours (Table) 03/31/23 04/01/23 04/01/23 Range/Units 12:26 05:25 05:25 WBC 34.0 H (3.8-10.6) k/uL RBC 3.77 L (3.80-5.40) m/uL ABG pO2 76 L (83-108) mmHg ABG Total CO2 26 H (19-24) mmol/L Chloride 114 H (98-107) mmol/L BUN 24 H (7-17) mg/dL Calcium 7.6 L (8.4-10.2) mg/dL Microbiology - Last 24 Hours (Table) 03/29/23 10:40 Gram Stain - Preliminary Pleural Fluid Body Fluid Culture - Preliminary 03/29/23 10:00 Gram Stain - Final Bronchial Washings - Right Bronchial Washings Culture - Final Dilia albicans
[2023-04-01 14:08] LABS: Glucose,Whole Blood 100 mg/dL (70-110)
[2023-04-01] MEDS: ALPRAZolam 0.5 MG TAB PO PRN (15:45)
--- NOTE | 2023-04-01 16:49 | P.PN ---
Subjective Progress Note Date: 04/01/23 Principal diagnosis: Pneumonia Patient is a 82-year-old female with a past medical history significant for hypertension hyperlipidemia osteoarthritis DVT COPD small cell lung cancer did have history of right-sided effusion status post thoracocentesis and Pleurx catheter placement presenting the hospital with increasing shortness of breath and concern for possible pneumonia. Patient did have a worsening respiratory status requiring transparency. Regarding debrided and also have a bronchoscopy done on 03/29/2023, patient was extubated 1 03/31/2023 On today's evaluation that is 04/01/2023, the patient continues to be afebrile , patient is requiring high flow nasal cannula oxygen to maintain her O2 sats, has been complaining of shortness of breath did have a cough not bringing up any sputum no vomiting or diarrhea has been reported Patient white count is up to 34,000 today, creatinine is 0. 55, patient sputum culture showing Dilia albicans pleural fluid pending, bronchial washings Dilia Objective - Vital Signs Vital signs: Vital Signs Temp 97.5 F L 04/01/23 12:00 Pulse 75 04/01/23 12:00 Resp 24 04/01/23 12:00 BP 128/59 04/01/23 12:00 Pulse Ox 93 L 04/01/23 12:00 FiO2 95 04/01/23 12:00 Intake & Output 03/31/23 04/01/23 04/01/23 18:59 06:59 18:59 Intake Total 1066.922 9430 830 Output Total 533 507 4756 Balance 334.152 9574 -727 Weight 74 kg 81 kg Intake: IV 1100 1900 830 Cefepime 2 gm In Sodium 100 100 100 Chloride 0.9% 100 ml @ 25 mls/hr IVPB Q8HR [facility] Rx# :[id number] Sodium Chloride 0.9% 1, 1000 1300 230 000 ml @ 100 mls/hr IV . Q10H [facility] Rx#:[id number] Vancomycin 1,500 mg In 500 500 Sodium Chloride 0.9% 500 ml 500 ml @ 167 mls/hr IVPB Q16H [facility] Rx#: [id number] Intake, IV Titration 320.042 Amount Dexmedetomidine/0.9% NaCl 14.308 (Pmx) 400 mcg In Empty Bag 1 bag @ 0.2 MCG/KG/HR 3.7 mls/hr IV .Q24H [facility] Rx#:[id number] Sodium Chloride 0.9% 1, 200 000 ml @ 100 mls/hr IV . Q10H [facility] Rx#:[id number] propofoL 1,000 mg In 105.734 Empty Bag 1 bag @ 15 MCG/ KG/MIN 6.001 mls/hr IV . [id number] [facility] Rx#:[id number] Tube Feeding 60 Output: Chest Tube Drainage 40 100 0 Pleural Catheter Right 40 100 0 Lower Anterior Chest Urine 179 520 9457 Other: Voiding Method Indwelling Catheter Indwelling Catheter Indwelling Catheter ABP, PAP, CO, CI - Last Documented Arterial Blood Pressure 129/63 - Exam GENERAL DESCRIPTION: Elderly female up in the bed in no distress RESPIRATORY SYSTEM: Unlabored breathing , decreased breath sounds at bases HEART: S1 S2 regular rate and rhythm ,no loud murmurs ABDOMEN: Soft , no tenderness EXTREMITIES: No edema feet - Labs CBC & Chem 7: 04/01/23 05:25 04/01/23 05:25 Labs: Abnormal Lab Results - Last 24 Hours (Table) 03/31/23 04/01/23 04/01/23 Range/Units 12:26 05:25 05:25 WBC 34.0 H (3.8-10.6) k/uL RBC 3.77 L (3.80-5.40) m/uL ABG pO2 76 L (83-108) mmHg ABG Total CO2 26 H (19-24) mmol/L Chloride 114 H (98-107) mmol/L BUN 24 H (7-17) mg/dL Calcium 7.6 L (8.4-10.2) mg/dL Microbiology - Last 24 Hours (Table) 03/29/23 10:40 Gram Stain - Preliminary Pleural Fluid Body Fluid Culture - Preliminary 03/29/23 10:00 Gram Stain - Final Bronchial Washings - Right Bronchial Washings Culture - Final Dilia albicans Assessment and Plan (1) Pneumonia Current Visit: Yes Status: Acute Priority: High Code(s): J18.9 - PNEUMONIA, UNSPECIFIED ORGANISM SNOMED Code(s): 282041473 Plan: 1patient presented to hospital with shortness of breath did have a cough productive sputum in addition to the anxiety and some mental status changes chest x-ray with right-sided effusion and consolidation concerning for pneumonia possible gram-negative as the patient has been in and out of hospital recently. 2patient did have a CT of the chest did show moderate size right pleural effusion with thick wall and pleural catheter in place a concern for possible empyema patient is status post drainage of the fluid had been sent for culture , patient also has a bronchoscopy completed and BAL cultures showing Dilia 3patient did have elevated white count likely steroid related - oral pharyngeal candidiasis as the patient and a sputum culture growing Dilia albicans , patient to continue with Diflucan 4 patient remains to be borderline and will continue with vancomycin and cefepime and monitor clinical course closely Dictation was produced using [employer] dictation software. please excuse any gr ammatical, word or spelling errors. Time with Patient: Less than 30
[2023-04-01 17:43] LABS: Glucose,Whole Blood 101 mg/dL (70-110)
[2023-04-01] MEDS: FLUCONAZOLE IN NACL,ISO-OSM 100 MG in SALINE 1 50ML.BAG IVPB SCH (17:58)
[2023-04-01] MEDS: ASPIRIN 81 MG PO SCH (20:56)
[2023-04-01] MEDS: ATORVASTATIN 20 MG TAB PO SCH (20:56)
[2023-04-01] MEDS: LORazepam 2 MG/ML INJ IV PRN (20:59)
[2023-04-01] MEDS: MIRTAZAPINE 15 MG TAB PO SCH (20:59)
[2023-04-01 23:36] LABS: Glucose,Whole Blood 105 mg/dL (70-110)
[2023-04-02] MEDS: IPRATROPIUM-ALBUTEROL 3 ML NEB INHALATION SCH ×2 (04:07→09:45)
[2023-04-02] MEDS: VANCOMYCIN 1,500 MG in SODIUM CHLORIDE 0.9% 500 ML 500 ML IVPB SCH (04:27)
[2023-04-02 06:18] LABS: Glucose,Whole Blood 106 mg/dL (70-110)
[2023-04-02] MEDS: ALPRAZolam 0.5 MG TAB PO PRN (06:50)
[2023-04-02 08:21] VITALS: TEMP 97.4
[2023-04-02] MEDS: BUDESONIDE 1 MG/2 ML NEBU INHALATION SCH (09:44)
[2023-04-02] MEDS: FORMOTEROL FUMARATE 20 MCG/2 ML NEBU INHALATION SCH (09:45)
[2023-04-02] MEDS: CEFEPIME 2 GM in SODIUM CHLORIDE 0.9% 100 ML IVPB SCH (11:10)
[2023-04-02] MEDS: ENOXAPARIN 40 MG/0.4 ML SYRINGE SQ SCH (11:10)
[2023-04-02] MEDS: DIVALPROEX 250 MG TABLET.DR PO SCH (11:10)
[2023-04-02] MEDS: atenoloL 50 MG TAB PO SCH (11:10)
[2023-04-02] MEDS: CHLORHEXIDINE GLUCONATE 15 ML CUP MUCOUS MEM SCH (11:10)
[2023-04-02] MEDS: ARIPiprazole 2 MG TAB PO SCH (11:10)
[2023-04-02] MEDS: methylPREDNISolone SOD SUCCI 40 MG/ML 1 ML VIAL IV SCH (11:11)
[2023-04-02] MEDS: PANTOPRAZOLE 40 MG/10 ML VIAL IV SCH (11:11)
[2023-04-02] MEDS: SERTRALINE 50 MG TAB PO SCH (11:11)
[2023-04-02] MEDS: LEVOTHYROXINE 100 MCG TAB PO SCH (11:11)
[2023-04-02] MEDS: guaiFENesin-DM 600/30MG 1 EACH TAB.ER.12H PO SCH (11:11)
[2023-04-02 11:12] VITALS: BP 125/56; PULSE 81; RESP 21
[2023-04-02] MEDS: NOREPINEPHRINE 8 MG in SODIUM CHLORIDE 0.9% 250 ML IV SCH (11:12)
[2023-04-02] MEDS: DEXMEDETOMIDINE/0.9% NACL(PMX) 400 MCG in EMPTY BAG 1 BAG IV SCH (11:13)
[2023-04-02 11:27] VITALS: BMI 29.0
--- NOTE | 2023-04-02 13:54 | P.DS ---
Providers Date of admission: 03/22/23 11:24 Expected date of discharge: 04/02/23 Attending physician: Radha Shoemaker DO Consults: 03/22/23 11:23 Consult Physician Routine Consulting Provider: Polo Cullen Consult Reason/Comments: Pneumonia, history of lung cancer Do you want consulting provider notified?: Yes 03/22/23 11:25 Consult Physician Routine Consulting Provider: Mignon Harris Consult Reason/Comments: Pneumonia Do you want consulting provider notified?: Yes 03/23/23 12:41 Consult Physician Routine Consulting Provider: Armando Ford Consult Reason/Comments: chronic pleurx asking about talc pleurodesis Do you want consulting provider notified?: Yes Primary care physician: Yao Haywood MD Hospital Course: Discharge Diagnosis: Right-sided PNA, Possible gram negative with parapneumonic effusion on the right and pleurx cath in place COPD with exacerbation Acute on chronic hypoxic respiratory failure Debility Moderate protein calorie malnutrition Septic shock requiring vasopressors HTN HLD Hypothyroidism Hx of NON-Small cell lung cancer status post chemo and radiation in 2016, in remission Anxiety Hospital Course: Patient is an 82-year-old female with a history of COPD with chronic hypoxic respiratory failure on 4 L nasal cannula, small cell lung cancer in 2016 treated with chemo/radiation, chronic right pleural effusion with pleurx cath in for the last 2 years, hypertension, and dyslipidemia who presented with complaints of shortness of breath. Of note she was hospitalized here from 02/26/23 through 03/03/23 for COPD exacerbation and right pleural effusion where she was evaluated by CT surgery who did not recommend any intervention at this time. On arrival to the emergency department here she was satting 82% on 3 L nasal cannula. Initial laboratory analysis was remarkable for white blood cell count 15.8, sodium 136, chloride 96, carbon dioxide 37, glucose 105. VBG showed pH is 7.34 pCO2 of 68 and a bicarb of dirty 6. Valproic acid level was 44.1. Lactic acid was normal. Pulmonary and ID we consulted and procal was negative. Her abx were discontinued. Pulm suggested hospice consult however the patient declined to sign-on to hospice. The patient was asking to speak with cardiothoracic surgery. She was seen by infectious disease who recommended to continue Zosyn. She was seen by cardiothoracic surgery. They decided not recommended to help pleurodesis. Despite maximal medical therapy she continued to struggle with shortness of breath. By 03/29 she was requiring 50% Ventimask and satting between 89-90%. She was having difficulty with her speech. Sputum culture was positive for Dilia. Initially patient was DO NOT RESUSCITATE however after di scussion with pulmonary she agreed to being intubated she was subsequently intubated on 03/29. She underwent broch with bronchial lavage on 03/29 which demonstrated mucous plugging. She was extubated on 03/31 and did require high flow nasal cannula. She decieded that she did not want to go back on the vent. She met with hospice on 04/01 and was discharged to [facility] hospice on 04/02/23. Patient seen and examined at bedside. She is feeling very tired and short of breath.She is waiting from her granddaughter to get here from [place] and then she is ready to go. Vital signs reviewed and stable. General: nontoxic, no distress, appears at stated age Cardiovascular: S1S2 reg, no murmur, positive posterior tibial pulse bilateral, Lungs: Course bs bilateral, no rhonchi, no rales , no accessory muscle use Abdominal: soft, nontender to palpation, no guarding, no appreciable organomegaly Ext: no gross muscle atrophy, no edema b/l lower extremities, no contractures Neuro: CN II-XI grossly intact, no focal neuro deficits Psych: Lethargic, withdrawn A total of 37 minutes of time were spent preparing this complex discharge summary. Patient was discharged on 04/02/23. This dictation was prepared using [employer] voice recognition software. Though every attempt is made to correct errors during dictation some may still exist. Plan - Discharge Summary Discharge Rx Participant: No New Discharge Prescriptions: No Action Albuterol Sulfate [Ventolin HFA] 2 puff INHALATION RT-Q4H PRN PRN Reason: Shortness Of Breath Sertraline [Zoloft] 50 mg PO DAILY Divalproex Sodium 250 mg PO BID Mirtazapine [Remeron] 15 mg PO HS Furosemide [Lasix] 20 - 40 mg PO DAILY PRN PRN Reason: Edema Acetaminophen Tab [Tylenol] 650 mg PO Q6HR PRN tab PRN Reason: Mild Pain Or Fever > 100.5 Atorvastatin [Lipitor] 20 mg PO HS 30 Days tab atenoloL [Tenormin] 50 mg PO DAILY 30 Days tab ARIPiprazole [Abilify] 4 mg PO DAILY Levothyroxine Sodium [Synthroid] 100 mcg PO DAILY Aspirin EC [Ecotrin Low Dose] 81 mg PO HS Budesonide-Formot 160-4.5 Mcg [Symbicort 160-4.5 Mcg Inhaler] 2 puff INHALATION RT-BID #1 each Discharge Medication List Albuterol Sulfate [Ventolin HFA] 2 puff INHALATION RT-Q4H PRN 09/10/20 [History] Atorvastatin [Lipitor] 20 mg PO HS 30 Days tab 02/14/21 [Rx] atenoloL [Tenormin] 50 mg PO DAILY 30 Days tab 02/14/21 [Rx] ARIPiprazole [Abilify] 4 mg PO DAILY 03/02/21 [History] Aspirin EC [Ecotrin Low Dose] 81 mg PO HS 02/26/23 [History] Divalproex Sodium 250 mg PO BID 02/26/23 [History] Furosemide [Lasix] 20 - 40 mg PO DAILY PRN 02/26/23 [History] Levothyroxine Sodium [Synthroid] 100 mcg PO DAILY 02/26/23 [History] Mirtazapine [Remeron] 15 mg PO HS 02/26/23 [History] Sertraline [Zoloft] 50 mg PO DAILY 02/26/23 [History] Acetaminophen Tab [Tylenol] 650 mg PO Q6HR PRN tab 02/28/23 [Rx] Budesonide-Formot 160-4.5 Mcg [Symbicort 160-4.5 Mcg Inhaler] 2 puff INHALATION RT-BID #1 each 02/28/23 [Rx] Follow up Appointment(s)/Referral(s): Yao Haywood MD [Primary Care Provider] - 1-2 days Discharge Disposition: DISCH TO [facility]
[2023-04-02] MEDS ORDERED: VANCOMYCIN TROUGH DUE 1 EACH MISC MISCELLANE ONE (19:00)
--- NOTE | 2023-04-04 11:03 | CDI ---
Documentation Clarification Form Date: 04/04/2023 10:50:58 AM From: Amber Chairez Admit Date: 03/22/2023 11:24:00 AM Patient Name: Margaret Gregg Visit Number: [id number] Discharge Date: 04/02/2023 11:28:00 AM ATTENTION: The Clinical Documentation Specialists (CDI) and [facility] Coding Staff appreciate your assistance in clarifying documentation. Please respond to the clarification below the line at the bottom and electronically sign. The CDI & [facility] Coding staff will review the response and follow-up if needed. Please note: Queries are made part of the Legal Health Record. If you have any questions, please contact the author of this message via ITS. Dr. Radha Shoemaker Per DCS "She did develop hypotension from presumed septic shock and was started on Levophed." "Septic shock requiring vasopressors." Documentation of septic shock not until 03/30. For each diagnosis, documentation must be clear to determine if the condition was present at the time of the patients inpatient admission or developed during the hospital stay. Additional clarification regarding septic shock is requested. History/Risk Factors: Patient with history of lung CA pleural effusion, gram negative pneumonia Clinical Indicators: WBC's 15.8 on admit up to 29.7 by 03/28 Treatment: Vasopressors and IV abx. Zosyn, Zithromax, Vancomycin and Rocephin Definition of Present on Admission (POA): A diagnosis present at the time the order for admission to inpatient status was written. Please clarify if the sepsis/septic shock was POA [ ] Y = Yes, the condition was present at the time of the order for inpatient admission. [ X ] N = No, the condition was not present at the time of the order for inpatient admission. [ ] W = Clinically undetermined if the condition was present at the time of the order for inpatient admission. MTDD
== END 2023-04-02 11:28 | disposition hospice, inpatient (51) | DRG 208 ==
LOC: EC 07:45 → 4SSUR 11:24 → 2SICU 03-29 08:50
PROVIDERS: ADMIT Internal Medicine; ATTEND Internal Medicine
PROC: 0BC38ZZ Extirpation of Matter from Right Main Bronchus, Via Natural or Artificial Opening Endoscopic (ICD-10-PCS; principal; 2023-03-29 08:30)
PROC: 02HV33Z Insertion of Infusion Device into Superior Vena Cava, Percutaneous Approach (ICD-10-PCS; principal; 2023-03-29 08:30)
PROC: 4A133J1 Monitoring of Arterial Pulse, Peripheral, Percutaneous Approach (ICD-10-PCS; principal; 2023-03-29 08:30)
PROC: 4A133B1 Monitoring of Arterial Pressure, Peripheral, Percutaneous Approach (ICD-10-PCS; principal; 2023-03-29 08:30)
PROC: 0BH17EZ Insertion of Endotracheal Airway into Trachea, Via Natural or Artificial Opening (ICD-10-PCS; principal; 2023-03-29 08:30)
PROC: 03HY32Z Insertion of Monitoring Device into Upper Artery, Percutaneous Approach (ICD-10-PCS; principal; 2023-03-29 08:30)
PROC: 0B9F8ZX Drainage of Right Lower Lung Lobe, Via Natural or Artificial Opening Endoscopic, Diagnostic (ICD-10-PCS; principal; 2023-03-29 08:30)
PROC: 5A1945Z Respiratory Ventilation, 24-96 Consecutive Hours (ICD-10-PCS; principal; 2023-03-29 08:30)
PROC: 3E043XZ Introduction of Vasopressor into Central Vein, Percutaneous Approach (ICD-10-PCS; 2023-03-31)
DX: J15.6 Pneumonia due to other Gram-negative bacteria (principal); A41.50 Gram-negative sepsis, unspecified; R65.21 Severe sepsis with septic shock; J96.21 Acute and chronic respiratory failure with hypoxia; J96.22 Acute and chronic respiratory failure with hypercapnia; J91.8 Pleural effusion in other conditions classified elsewhere; E44.0 Moderate protein-calorie malnutrition; T17.890A Other foreign object in other parts of respiratory tract causing asphyxiation, initial encounter; I48.92 Unspecified atrial flutter; Z87.891 Personal history of nicotine dependence; Z68.29 Body mass index [BMI] 29.0-29.9, adult; E03.9 Hypothyroidism, unspecified; E78.5 Hyperlipidemia, unspecified; F06.4 Anxiety disorder due to known physiological condition; F10.21 Alcohol dependence, in remission; F31.9 Bipolar disorder, unspecified; F41.1 Generalized anxiety disorder; G25.0 Essential tremor; I10 Essential (primary) hypertension; Z51.5 Encounter for palliative care; Z66 Do not resuscitate; I48.91 Unspecified atrial fibrillation; G43.909 Migraine, unspecified, not intractable, without status migrainosus; J43.9 Emphysema, unspecified; R53.81 Other malaise; Z20.822 Contact with and (suspected) exposure to COVID-19; M19.90 Unspecified osteoarthritis, unspecified site; F40.240 Claustrophobia; Z79.51 Long term (current) use of inhaled steroids; Z79.890 Hormone replacement therapy; Z79.899 Other long term (current) drug therapy; Z80.1 Family history of malignant neoplasm of trachea, bronchus and lung; Z85.118 Personal history of other malignant neoplasm of bronchus and lung; Z86.718 Personal history of other venous thrombosis and embolism; Z92.21 Personal history of antineoplastic chemotherapy; Z92.3 Personal history of irradiation; Z86.010 Personal history of colon polyps; Z79.82 Long term (current) use of aspirin; Z71.3 Dietary counseling and surveillance; Z91.040 Latex allergy status
CPT/HCPCS: 31624; 36415; 36600; 70450; 71045; 71046; 71250; 80048; 80053; 80164; 80202; 81001; 82803; 82805; 83605; 83735; 84100; 84145; 84484; 85025; 85027; 86140; 87040; 87070; 87102; 87116; 87205; 87206; 87252; 87449; 87496; 87498; 87502; 87529; 87634; 87635; 87798; 88108; 88305; 93005; 94002; 94003; 94640; 94667; 94760; 96361; 96365; 96375; 99285

== ENCOUNTER 2023-04-02 09:43 | Inpatient (IN) | payer MEDICAID ==
[2023-04-02] MEDS ORDERED: MORPHINE SULFATE 4 MG/ML SYRINGE IV PRN (10:18)
[2023-04-02] MEDS ORDERED: GLYCOPYRROLATE 0.2 MG/ML 2 ML VIAL IVP PRN (10:18)
[2023-04-02] MEDS ORDERED: LORazepam 2 MG/ML INJ IV PRN (10:18)
[2023-04-02] MEDS ORDERED: ACETAMINOPHEN TAB 325 MG TAB PO PRN (10:18)
[2023-04-02] MEDS ORDERED: DRY MOUTH SPRAY 44.3 SPRAY/44.3 ML SPRAY MUCOUS MEM PRN (10:18)
[2023-04-02] MEDS ORDERED: ONDANSETRON 4 MG/2 ML VIAL IVP PRN (10:18)
[2023-04-02] MEDS ORDERED: ATROPINE OPHTH SOLN 1% 5ML BTL SUBLINGUAL PRN (10:18)
[2023-04-02] MEDS ORDERED: SCOPOLAMINE 1 MG/72 HR PATCH TRANSDERM SCH (10:30)
[2023-04-02] MEDS ORDERED: IPRATROPIUM-ALBUTEROL 3 ML NEB INHALATION PRN (10:33)
[2023-04-02] MEDS: SODIUM CHLORIDE 0.9% 1,000 ML IV SCH (12:44)
[2023-04-02] MEDS: MORPHINE SULFATE (100 MG/2 ML) 100 MG in SODIUM CHLORIDE 0.9% 100 ML IV SCH (12:45)
--- NOTE | 2023-04-02 18:59 | P.HPIM ---
History of Present Illness H&P Date: 04/02/23 Patient is an 82-year-old female with a history of COPD with chronic hypoxic respiratory failure on 4 L nasal cannula, small cell lung cancer in 2016 treated with chemo/radiation, chronic right pleural effusion with pleurx cath in for the last 2 years, hypertension, and dyslipidemia who presented with complaints of shortness of breath. Of note she was hospitalized here from 02/26/23 through 03/03/23 for COPD exacerbation and right pleural effusion where she was evaluated by CT surgery who did not recommend any intervention at this time. On arrival to the emergency department here she was satting 82% on 3 L nasal cannula. Initial laboratory analysis was remarkable for white blood cell count 15.8, sodium 136, chloride 96, carbon dioxide 37, glucose 105. VBG showed pH is 7.34 pCO2 of 68 and a bicarb of dirty 6. Valproic acid level was 44.1. Lactic acid was normal. Pulmonary and ID we consulted and procal was negative. Her abx were discontinued. Pulm suggested hospice consult however the patient declined to sign-on to hospice. The patient was asking to speak with cardiothoracic surgery. She was seen by infectious disease who recommended to continue Zosyn. She was seen by cardiothoracic surgery. They decided not recommended to help pleurodesis. Despite maximal medical therapy she continued to struggle with shortness of breath. By 03/29 she was requiring 50% Ventimask and satting between 89-90%. She was having difficulty with her speech. Sputum culture was positive for Dilia. Initially patient was DO NOT RESUSCITATE however after discussion with pulmonary she agreed to being intubated she was subsequently intubated on 03/29. She underwent broch with bronchial lavage on 03/29 which demonstrated mucous plugging. She was extubated on 03/31 and did require high flow nasal cannula. She decieded that she did not want to go back on the vent. She met with hospice on 04/01 and was discharged to [facility] hospice on 04/02/23. Patient seen and examined at bedside. She is feeling very tired and short of breath, denies pain. Vital signs reviewed General: nontoxic, no distress, appears at stated age Cardiovascular: S1S2 reg, no murmur, positive posterior tibial pulse bilateral, Lungs: Course bs bilateral, no rhonchi, no rales , no accessory muscle use Abdominal: soft, nontender to palpation, no guarding, no appreciable organomegaly Ext: no gross muscle atrophy, no edema b/l lower extremities, no contractures Neuro: CN II-XI grossly intact, no focal neuro deficits Psych: Lethargic, withdrawn Assessment/Plan: Right-sided PNA, Possible gram negative with parapneumonic effusion on the right and pleurx cath in place COPD with exacerbation Acute on chronic hypoxic respiratory failure Debility Moderate protein calorie malnutrition Septic shock requiring vasopressors HTN HLD Hypothyroidism Hx of NON-Small cell lung cancer status post chemo and radiation in 2016, in remission Anxiety -Morphine drip started at 1 mg/h and up titrate for comfort, IV push morphine for breakthrough pain, atropine drops, Robinul, Ativan 1 mg every 3 hours for anxiety. Comfort care. This dictation was prepared using [employer] voice recognition software. Though every attempt is made to correct errors during dictation some may still exist. 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 History of Any Multi-Drug Resistant Organisms: None Reported Past Surgical History: Adenoidectomy, Appendectomy, Breast Surgery, Hysterectomy, Tonsillectomy Additional Past Surgical History / Comment(s): Bronchoscopy/biopsy, thoracentesis, L pyeloplasty/JJ cath, L breast core bx x3-benign, EGD, colonoscopy/benign polypectomy. Right-sided Pleurx catheter placement Past Anesthesia/Blood Transfusion Reactions: Postoperative Nausea & Vomiting (PONV) Additional Past Anesthesia/Blood Transfusion Reaction / Comment(s): Pt has clausterphobia Past Psychological History: Anxiety, Bipolar, Depression Smoking Status: Former smoker Past Alcohol Use History: None Reported Past Drug Use History: None Reported - Past Family History Father Family Medical History: CVA/TIA Additional Family Medical History / Comment(s): Father of a cerebral hemorrhage at age 48yrs. Mother Family Medical History: Cancer Additional Family Medical History / Comment(s): Mother of lung cancer. Sister(s) Family Medical History: Cancer Additional Family Medical History / Comment(s): Sister of lung cancer Medications and Allergies Home Medications Medication Instructions Recorded Confirmed Type Albuterol Sulfate [Ventolin HFA] 2 puff INHALATION RT-Q4H PRN 09/10/20 04/02/23 History Atorvastatin [Lipitor] 20 mg PO HS 30 Days tab 02/14/21 04/02/23 Rx atenoloL [Tenormin] 50 mg PO DAILY 30 Days tab 02/14/21 04/02/23 Rx ARIPiprazole [Abilify] 4 mg PO DAILY 03/02/21 04/02/23 History Aspirin EC [Ecotrin Low Dose] 81 mg PO HS 02/26/23 04/02/23 History Divalproex Sodium 250 mg PO BID 02/26/23 04/02/23 History Furosemide [Lasix] 20 - 40 mg PO DAILY PRN 02/26/23 04/02/23 History Levothyroxine Sodium [Synthroid] 100 mcg PO DAILY 02/26/23 04/02/23 History Mirtazapine [Remeron] 15 mg PO HS 02/26/23 04/02/23 History Sertraline [Zoloft] 50 mg PO DAILY 02/26/23 04/02/23 History Acetaminophen Tab [Tylenol] 650 mg PO Q6HR PRN tab 02/28/23 04/02/23 Rx Budesonide-Formot 160-4.5 Mcg 2 puff INHALATION RT-BID #1 each 02/28/23 04/02/23 Rx [Symbicort 160-4.5 Mcg Inhaler] Allergies Allergy/AdvReac Type Severity Reaction Status Date / Time latex Allergy Lip Verified 03/22/23 13:47 swelling after dental procedure Physical Exam Osteopathic Statement: *. No significant issues noted on an osteopathic structural exam other than those noted in the History and Physical/Consult. Vitals: Intake and Output 04/02/23 04/02/23 04/02/23 06:59 14:59 22:59 Other: Weight 79 kg
--- NOTE | 2023-04-03 13:14 | P.PN ---
Subjective Progress Note Date: 04/03/23 Hospital Course: Patient is an 82-year-old female with a history of COPD with chronic hypoxic respiratory failure on 4 L nasal cannula, small cell lung cancer in 2016 treated with chemo/radiation, chronic right pleural effusion with pleurx cath in for the last 2 years, hypertension, and dyslipidemia who presented with complaints of shortness of breath. Of note she was hospitalized here from 02/26/23 through 03/03/23 for COPD exacerbation and right pleural effusion where she was evaluated by CT surgery who did not recommend any intervention at this time. On arrival to the emergency department here she was satting 82% on 3 L nasal cannula. Initial laboratory analysis was remarkable for white blood cell count 15.8, sodium 136, chloride 96, carbon dioxide 37, glucose 105. VBG showed pH is 7.34 pCO2 of 68 and a bicarb of dirty 6. Valproic acid level was 44.1. Lactic acid was normal. Pulmonary and ID we consulted and procal was negative. Her abx were discontinued. Pulm suggested hospice consult however the patient declined to sign-on to hospice. The patient was asking to speak with cardiothoracic surgery. She was seen by infectious disease who recommended to continue Zosyn. She was seen by cardiothoracic surgery. They decided not recommended to help pleurodesis. Despite maximal medical therapy she continued to struggle with shortness of breath. By 03/29 she was requiring 50% Ventimask and satting between 89-90%. She was having difficulty with her speech. Sputum culture was positive for Dilia. Initially patient was DO NOT RESUSCITATE however after discussion with pulmonary she agreed to being intubated she was subsequently intubated on 03/29. She underwent broch with bronchial lavage on 03/29 which demonstrated mucous plugging. She was extubated on 03/31 and did require high flow nasal cannula. She decieded that she did not want to go back on the vent. She met with hospice on 04/01 and was discharged to [facility] hospice on 04/02/23. Currently on morphine drip. Subjective: She seen and examined at bedside. No acute events overnight. Family is at be dside. Patient appears comfortable. Pertinent positives and negatives as discussed above, a complete review of systems was performed and all other systems are negative. Vitals Signs Reviewed. General: nontoxic, no distress, appears at stated age Head: atraumatic, normocephalic, symmetric Cardiovascular: S1S2 reg, no murmur Lungs: Supplemental oxygen Abdominal: soft, nontender to palpation, no guarding Neuro: Obtunded Psych: Unable to assess Data Reviewed Today: Pertinent Labs: No new labs Imaging: No new imaging Assessment and Plan: Right-sided PNA, Possible gram negative with parapneumonic effusion on the right and pleurx cath in place COPD with exacerbation Acute on chronic hypoxic respiratory failure Debility Moderate protein calorie malnutrition Septic shock requiring vasopressors HTN HLD Hypothyroidism 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 Comfort care. Objective - Vital Signs Vital signs: Vital Signs Temp Pulse 116 H 04/03/23 11:18 Resp 6 L 04/03/23 11:18 BP Pulse Ox 80 L 04/03/23 11:18 FiO2 Intake & Output 04/02/23 04/03/23 04/03/23 18:59 06:59 18:59 Intake Total 39.465 Output Total 630 Balance -630 39.465 Weight 79 kg Intake: Intake, IV Titration 19.465 Amount Morphine Sulfate (100 mg/ 19.465 2 ml) 100 mg In Sodium Chloride 0.9% 100 ml @ 1 MG/HR 1.02 mls/hr IV . Q24H [facility] Rx#:[id number] Oral 20 Output: Chest Tube Drainage 30 Right Anterior Chest 30 Urine 600 Other: Voiding Method Indwelling Catheter Indwelling Catheter
[2023-04-04] MEDS: MORPHINE SULFATE (100 MG/2 ML) 100 MG in SODIUM CHLORIDE 0.9% 100 ML IV SCH (01:43)
[2023-04-04] MEDS: SODIUM CHLORIDE 0.9% 1,000 ML IV SCH (03:41)
[2023-04-04 11:47] VITALS: PULSE 92; RESP 6
--- NOTE | 2023-04-04 12:42 | P.PN ---
Subjective Progress Note Date: 04/04/23 Hospital Course: Patient is an 82-year-old female with a history of COPD with chronic hypoxic respiratory failure on 4 L nasal cannula, small cell lung cancer in 2016 treated with chemo/radiation, chronic right pleural effusion with pleurx cath in for the last 2 years, hypertension, and dyslipidemia who presented with complaints of shortness of breath. Of note she was hospitalized here from 02/26/23 through 03/03/23 for COPD exacerbation and right pleural effusion where she was evaluated by CT surgery who did not recommend any intervention at this time. On arrival to the emergency department here she was satting 82% on 3 L nasal cannula. Initial laboratory analysis was remarkable for white blood cell count 15.8, sodium 136, chloride 96, carbon dioxide 37, glucose 105. VBG showed pH is 7.34 pCO2 of 68 and a bicarb of dirty 6. Valproic acid level was 44.1. Lactic acid was normal. Pulmonary and ID we consulted and procal was negative. Her abx were discontinued. Pulm suggested hospice consult however the patient declined to sign-on to hospice. The patient was asking to speak with cardiothoracic surgery. She was seen by infectious disease who recommended to continue Zosyn. She was seen by cardiothoracic surgery. They decided not recommended to help pleurodesis. Despite maximal medical therapy she continued to struggle with shortness of breath. By 03/29 she was requiring 50% Ventimask and satting between 89-90%. She was having difficulty with her speech. Sputum culture was positive for Dilia. Initially patient was DO NOT RESUSCITATE however after discussion with pulmonary she agreed to being intubated she was subsequently intubated on 03/29. She underwent broch with bronchial lavage on 03/29 which demonstrated mucous plugging. She was extubated on 03/31 and did require high flow nasal cannula. She decieded that she did not want to go back on the vent. She met with hospice on 04/01 and was discharged to [facility] hospice on 04/02/23. Currently on morphine drip. Subjective: She seen and examined at bedside. No acute events overnight. Family is at be dside. Patient appears comfortable. respirations more shallow. Pertinent positives and negatives as discussed above, a complete review of systems was performed and all other systems are negative. Vitals Signs Reviewed. General: nontoxic, no distress, appears at stated age Head: atraumatic, normocephalic, symmetric Cardiovascular: S1S2 reg, no murmur Lungs: Supplemental oxygen Abdominal: soft, nontender to palpation, no guarding Neuro: Obtunded Psych: Unable to assess Data Reviewed Today: Pertinent Labs: No new labs Imaging: No new imaging Assessment and Plan: Right-sided PNA, Possible gram negative with parapneumonic effusion on the right and pleurx cath in place COPD with exacerbation Acute on chronic hypoxic respiratory failure Debility Moderate protein calorie malnutrition Septic shock requiring vasopressors HTN HLD Hypothyroidism 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 Comfort care. Objective - Vital Signs Vital signs: Vital Signs Temp Pulse 92 04/04/23 11:47 Resp 6 L 04/04/23 11:47 BP Pulse Ox 70 L 04/04/23 08:00 FiO2 Intake & Output 04/03/23 04/04/23 04/04/23 18:59 06:59 18:59 Intake Total 303.465 47.124 Output Total 225 Balance 303.465 -177.876 Intake: IV 24 Morphine Sulfate (100 mg/ 24 2 ml) 100 mg In Sodium Chloride 0.9% 100 ml @ 1 MG/HR 1.02 mls/hr IV . Q24H [facility] Rx#:[id number] Intake, IV Titration 259.465 47.124 Amount Morphine Sulfate (100 mg/ 19.465 47.124 2 ml) 100 mg In Sodium Chloride 0.9% 100 ml @ 1 MG/HR 1.02 mls/hr IV . Q24H [facility] Rx#:[id number] Sodium Chloride 0.9% 1, 240 000 ml @ 20 mls/hr IV . Q24H [facility] Rx#:[id number] Oral 20 Output: Urine 225 Other: Voiding Method Indwelling Catheter Indwelling Catheter
--- NOTE | 2023-04-04 12:43 | P.DS ---
Providers Date of admission: 04/02/23 12:16 Expected date of discharge: 04/04/23 Attending physician: Radha Shoemaker DO Primary care physician: Yao Haywood MD Hospital Course: Discharge Diagnosis: Right-sided PNA, Possible gram negative with parapneumonic effusion on the right and pleurx cath in place COPD with exacerbation Acute on chronic hypoxic respiratory failure Debility Moderate protein calorie malnutrition Septic shock requiring vasopressors HTN HLD Hypothyroidism Hx of NON-Small cell lung cancer status post chemo and radiation in 2016, in remission Anxiety Hospital Course: Patient is an 82-year-old female with a history of COPD with chronic hypoxic respiratory failure on 4 L nasal cannula, small cell lung cancer in 2016 treated with chemo/radiation, chronic right pleural effusion with pleurx cath in for the last 2 years, hypertension, and dyslipidemia who presented with complaints of shortness of breath. Of note she was hospitalized here from 02/26/23 through 03/03/23 for COPD exacerbation and right pleural effusion where she was evaluated by CT surgery who did not recommend any intervention at this time. On arrival to the emergency department here she was satting 82% on 3 L nasal cannula. Initial laboratory analysis was remarkable for white blood cell count 15.8, sodium 136, chloride 96, carbon dioxide 37, glucose 105. VBG showed pH is 7.34 pCO2 of 68 and a bicarb of dirty 6. Valproic acid level was 44.1. Lactic acid was normal. Pulmonary and ID we consulted and procal was negative. Her abx were discontinued. Pulm suggested hospice consult however the patient declined to sign-on to hospice. The patient was asking to speak with cardiothoracic surgery. She was seen by infectious disease who recommended to continue Zosyn. She was seen by cardiothoracic surgery. They decided not recommended to help pleurodesis. Despite maximal medical therapy she continued to struggle with shortness of breath. By 03/29 she was requiring 50% Ventimask and satting between 89-90%. She was having difficulty with her speech. Sputum culture was positive for Dilia. Initially patient was DO NOT RESUSCITATE however after discussion with pulmonary she agreed to being intubated she was subsequently intubated on 03/29. She underwent broch with bronchial lavage on 03/29 which demonstrated mucous plugging. She was extubated on 03/31 and did require high flow nasal cannula. She decieded that she did not want to go back on the vent. She met with hospice on 04/01 and was discharged to [facility] hospice on 04/02/23. Started on morphine drip. Patient on 04/04/23 at 12:10. Patient Condition at Discharge: Stable Plan - Discharge Summary New Discharge Prescriptions: No Action Albuterol Sulfate [Ventolin HFA] 2 puff INHALATION RT-Q4H PRN PRN Reason: Shortness Of Breath Sertraline [Zoloft] 50 mg PO DAILY Divalproex Sodium 250 mg PO BID Mirtazapine [Remeron] 15 mg PO HS Furosemide [Lasix] 20 - 40 mg PO DAILY PRN PRN Reason: Edema Acetaminophen Tab [Tylenol] 650 mg PO Q6HR PRN tab PRN Reason: Mild Pain Or Fever > 100.5 Atorvastatin [Lipitor] 20 mg PO HS 30 Days tab atenoloL [Tenormin] 50 mg PO DAILY 30 Days tab ARIPiprazole [Abilify] 4 mg PO DAILY Levothyroxine Sodium [Synthroid] 100 mcg PO DAILY Aspirin EC [Ecotrin Low Dose] 81 mg PO HS Budesonide-Formot 160-4.5 Mcg [Symbicort 160-4.5 Mcg Inhaler] 2 puff INHALATION RT-BID #1 each Discharge Medication List Albuterol Sulfate [Ventolin HFA] 2 puff INHALATION RT-Q4H PRN 09/10/20 [History] Atorvastatin [Lipitor] 20 mg PO HS 30 Days tab 02/14/21 [Rx] atenoloL [Tenormin] 50 mg PO DAILY 30 Days tab 02/14/21 [Rx] ARIPiprazole [Abilify] 4 mg PO DAILY 03/02/21 [History] Aspirin EC [Ecotrin Low Dose] 81 mg PO HS 02/26/23 [History] Divalproex Sodium 250 mg PO BID 02/26/23 [History] Furosemide [Lasix] 20 - 40 mg PO DAILY PRN 02/26/23 [History] Levothyroxine Sodium [Synthroid] 100 mcg PO DAILY 02/26/23 [History] Mirtazapine [Remeron] 15 mg PO HS 02/26/23 [History] Sertraline [Zoloft] 50 mg PO DAILY 02/26/23 [History] Acetaminophen Tab [Tylenol] 650 mg PO Q6HR PRN tab 02/28/23 [Rx] Budesonide-Formot 160-4.5 Mcg [Symbicort 160-4.5 Mcg Inhaler] 2 puff INHALATION RT-BID #1 each 02/28/23 [Rx]
== END 2023-04-04 14:49 | disposition expired | DRG 951 ==
LOC: 2SICU 12:16 → 3SCARD 14:03
PROVIDERS: ADMIT Internal Medicine; ATTEND Internal Medicine
PROC: 3E033XZ Introduction of Vasopressor into Peripheral Vein, Percutaneous Approach (ICD-10-PCS; principal; 2023-04-02)
DX: Z51.5 Encounter for palliative care (principal); A41.59 Other Gram-negative sepsis; J96.21 Acute and chronic respiratory failure with hypoxia; R65.21 Severe sepsis with septic shock; Z66 Do not resuscitate; J15.6 Pneumonia due to other Gram-negative bacteria; E44.0 Moderate protein-calorie malnutrition; J44.0 Chronic obstructive pulmonary disease with (acute) lower respiratory infection; J44.1 Chronic obstructive pulmonary disease with (acute) exacerbation; E03.9 Hypothyroidism, unspecified; Z79.890 Hormone replacement therapy; F31.9 Bipolar disorder, unspecified; E78.5 Hyperlipidemia, unspecified; F41.9 Anxiety disorder, unspecified; M19.90 Unspecified osteoarthritis, unspecified site; I10 Essential (primary) hypertension; G43.109 Migraine with aura, not intractable, without status migrainosus; G25.0 Essential tremor; Z68.29 Body mass index [BMI] 29.0-29.9, adult; Z91.040 Latex allergy status; Z92.21 Personal history of antineoplastic chemotherapy; Z92.3 Personal history of irradiation; Z87.01 Personal history of pneumonia (recurrent); Z86.718 Personal history of other venous thrombosis and embolism; Z79.01 Long term (current) use of anticoagulants; Z79.51 Long term (current) use of inhaled steroids; Z79.899 Other long term (current) drug therapy; Z87.891 Personal history of nicotine dependence; Z85.118 Personal history of other malignant neoplasm of bronchus and lung; Z90.710 Acquired absence of both cervix and uterus; Z87.19 Personal history of other diseases of the digestive system